=== PATIENT | male | born 1935 | race Caucasian/White ===

== ENCOUNTER 2023-04-09 10:34 | Outpatient (OUT) | payer MEDICARE, SELFPAY ==
--- NOTE | 2023-04-09 11:02 | XR_ITS ---
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 FINDINGS: The cardiomediastinal silhouette is enlarged. Left-sided cardiac pacemaker with atrial periventricular lead. Scattered nodular opacities are noted, unchanged from the prior exam. There is no pneumothorax. No pleural effusion is noted. The osseous structures are intact. XR/XR chest 2V IMPRESSION: No significant change from the prior exam. Electronically authenticated by: KENDALL DANG Date: 04/09/2023 11:26
[2023-04-09 12:37] LABS: Alanine Aminotransferase 21 U/L (16-63); Albumin Globulin Ratio 0.9; Albumin Level 3.6 g/dL (3.4-5.0); Alkaline Phosphatase 221 U/L (46-116); Aspartate Amino Transferase 16 U/L (15-37); Bilirubin Direct 0.1 mg/dL (0.0-0.2); Bilirubin Total 0.5 mg/dL (0.2-1.0); Globulin 3.9 g/dL; Thyroid Stimulating Hormone 3.946 uIU/mL (0.358-3.740); Total Protein 7.5 g/dL (6.4-8.2)
[2023-04-09 12:45] LABS: Free T4 1.23 ng/dL (0.76-1.46)
== END 2023-04-09 10:35 | disposition home or self-care (01) ==
LOC: LAB 10:41
PROVIDERS: PCP Family Medicine; Visit Provider Internal Medicine Cardiovascular Disease
DX: Z79.899 Other long term (current) drug therapy (principal)
CPT/HCPCS: 36415; 71046; 80076; 84439; 84443

== ENCOUNTER 2023-05-24 12:10 | Outpatient (OUT) | payer MEDICARE, SELFPAY ==
[2023-05-24 12:36] LABS: Anion Gap 11.5; BUN Creatinine Ratio 21.5; Calcium 8.4 mg/dL (8.5-10.1); Carbon Dioxide 27.9 mmol/L (21.0-32.0); Chloride 107 mmol/L (98-107); Estimated GFR (African America 54 (>=60); Estimated GFR (Non-African Ame 45 (>=60); Glucose 106 mg/dL (74-106); Potassium 4.4 mmol/L (3.5-5.1); Sodium 142 mmol/L (136-145)
== END 2023-05-24 12:11 | disposition home or self-care (01) ==
LOC: LAB 12:12
PROVIDERS: PCP Family Medicine; Visit Provider Nurse Practitioner
DX: I50.23 Acute on chronic systolic (congestive) heart failure (principal)
CPT/HCPCS: 36415; 80048

== ENCOUNTER 2023-06-21 12:38 | Outpatient (OUT) | payer MEDICARE, SELFPAY ==
[2023-06-21 13:40] LABS: Anion Gap 13.3; BUN Creatinine Ratio 22.1; Calcium 8.3 mg/dL (8.5-10.1); Carbon Dioxide 25.6 mmol/L (21.0-32.0); Chloride 108 mmol/L (98-107); Estimated GFR (African America 54 (>=60); Estimated GFR (Non-African Ame 45 (>=60); Glucose 103 mg/dL (74-106); Potassium 4.9 mmol/L (3.5-5.1); Sodium 142 mmol/L (136-145)
== END 2023-06-21 12:39 | disposition home or self-care (01) ==
LOC: LAB 12:40
PROVIDERS: PCP Family Medicine; Visit Provider Nurse Practitioner
DX: I10 Essential (primary) hypertension (principal)
CPT/HCPCS: 36415; 80048

== ENCOUNTER 2023-11-16 10:00 | Outpatient (OUT) | payer MEDICARE, SELFPAY ==
--- NOTE | 2023-11-16 10:00 | CA_ITS ---
Patient Name: SHALA ARENAS MR#: [id number] : 1935 Exam Date: 11/16/2023 Ordering Doctor: OLIVIA CORMIER CNP ECHOCARDIOGRAM REPORT PROCEDURE: CA ECHO DOPPLER COMPLETE INDICATIONS: Heart failure, CABGx3, pacemaker COMPARISON: None. DESCRIPTION: COMPLETE ECHOCARDIOGRAM Real-time transthoracic echocardiography with 2D, M-mode, spectral and color flow Doppler performed. QUALITY: Technical quality was adequate. 65 , 172#, BSA 1.86 m2, BP 134/76 LEFT VENTRICLE: Normal chamber size. Normal left ventricular wall thickness. LV EF: Global left ventricular systolic function is low normal limits; visually estimated ejection fraction is 50 to 55%. Abnormal septal motion; this is not an unusual finding in the post open heart patient. DIASTOLIC: Diastolic dysfunction. ATRIAL SEPTUM: Inadequately seen. LEFT ATRIUM: Severe dilatation. RIGHT ATRIUM: Severe dilatation. Pacer wire present. RIGHT VENTRICLE: Moderate dilatation. Systolic function appears preserved. Pacer wire present. TRICUSPID VALVE: Normal mobility and thickness. Moderate regurgitation. Doppler studies reveal mildly (35-45) elevated right sided pressures. RVSP 45 mmHg MITRAL VALVE: Normal mobility and thickness. Moderate mitral annular calcification. Trivial mitral regurgitation. AORTIC VALVE: The transcatheter aortic valve (THI) appears well seated in the aortic position with normal Doppler flows. No aortic regurgitation. AORTIC ROOT: Normal diameter and appearance. PULMONIC VALVE: Not well visualized. No stenosis. No regurgitation. PERICARDIUM: Anterior free space; trivial effusion versus fat pad. IVC: IVC is normal in size, does not collapse. CONCLUSION: 1. Global left ventricular systolic function is low normal limits; visually estimated ejection fraction is 50 to 55% 2. Right ventricle is moderately dilated with preserved systolic function 3. Severe biatrial enlargement 4. Diastolic dysfunction 5. Moderate tricuspid regurgitation 6. Mildly elevated right ventricular systolic pressure; RVSP 45 mmHg 7. The transcatheter aortic valve (THI) appears well-seated with normal Doppler flow; no significant valvular regurgitation 8. Anterior free space; trivial effusion versus fat pad Adult Echocardiography Procedure Report Left Ventricle LVEDD (3.7 - 5.6 cm): 5.84 cm LVESD (2.2 - 4.0 cm): 4.66 cm LVIVS thickness (0.6 - 1.2 cm): 1.12 cm LVPW thickness (0.5 - 1.0 cm): 1.04 cm LVOT Max Gradient: 2.89 mm[Hg] LVOT Area (cm2): 0.85 m/s Peak Velocity (LVOT): 0.85 m/s Mean Velocity (LVOT): 0.63 m/s LVOT Diameter 2.27 cm Left Atrium LA Volume Index (2D A2C): 63.90 ml/m2 Left Atrium Systolic Dimension: 4.91 cm Mitral Valve MV E to A Ratio: 0.94 Mitral Valve A-Wave Peak Velocity: 1.03 m/s Mitral Valve E-Wave Peak Velocity: 0.97 m/s Right Ventricle Aorta AO Root Diam: 3.27 cm Aortic Valve AoV Area (Peak Danilo): 1.51 cm2, 1.51 cm2 AoV Area (VTI): 1.79 cm2, 1.82 cm2 Peak Velocity(Antegrade Flow): 2.27 m/s, 2.18 m/s Peak Gradient(Antegrade Flow): 20.70 mm[Hg], 19.04 mm[Hg] Mean Velocity(Antegrade Flow): 1.49 m/s, 1.43 m/s Mean Gradient(Antegrade Flow): 10.45 mm[Hg], 9.46 mm[Hg] Velocity Time Integral: 48.98 cm, 49.60 cm Tricuspid Valve Peak Velocity (Regurgitant Flow): 3.03 m/s, 2.86 m/s, 2.75 m/s, 2.97 m/s Pulmonic Valve Peak Gradient: 3.59 mm[Hg], 3.23 mm[Hg] Right Atrium Right Atrium Systolic Pressure: 109.59 ml, 109.59 ml Dictated by: Radha Castanon M.D. on 11/16/2023 at 16:50 Approved by: Radha Castanon M.D. on 11/16/2023 at 16:56
== END 2023-11-16 10:01 | disposition home or self-care (01) ==
LOC: CARD 10:02
PROVIDERS: PCP Family Medicine; Visit Provider Nurse Practitioner Family
DX: I50.22 Chronic systolic (congestive) heart failure (principal)
CPT/HCPCS: 93306

== ENCOUNTER 2024-04-17 11:30 | Outpatient (OUT) | payer MEDICARE, SELFPAY ==
--- NOTE | 2024-04-17 11:59 | XR_ITS ---
The [address] [address] Patient Name: SHALA ARENAS MRN: [id number] date: 1935 Sex: M Assigned Patient Location: [facility] Current Patient Location: Accession/Order Number: [id number] Exam Date: 04/17/2024 12:04 Report Date: 04/18/2024 16:39 At the request of: OLIVIA CORMIER Procedure: XR chest 2V EXAM: XR chest 2V CLINICAL INDICATION: Retirement Use Of Amiodarone Z79.899 COMPARISON: 04/09/2023 TECHNIQUE: 2 views of chest performed. FINDINGS: Stable left chest wall cardiac device with intact leads. Lungs: Stable left-sided calcified granuloma. Stable right upper lobe/biapical pleural-parenchymal scarring. No convincing focal infiltrates. No pleural effusion or pneumothorax. Heart: Cardiac and mediastinal contours are unremarkable. No overt pulmonary vascular congestion. Osseous structures: No acute abnormalities. XR/XR chest 2V IMPRESSION: No acute cardiopulmonary process. Electronically authenticated by: TREV DENTON Date: 04/18/2024 16:39
--- OUTSIDE RECORDS SUMMARY | 2024-04-17 12:02 | XMS_ITS | CCD ---
Author Organization [facility] Care Team Providers Care Design And Sales Consultant Name Role Phone TONY BURGOS Primary Care Unavailable TONY BURGOS Referring Unavailable UNKNOWN, PROVIDER Admitting Unavailable UNKNOWN, PROVIDER Attending Unavailable RADHA NAZARIO Referring Unavailable TONY BURGOS Primary Care Unavailable UNKNOWN, PROVIDER Attending Unavailable UNKNOWN, PROVIDER Admitting Unavailable DOUGLAS DE LA ROSA Surgeon Unavailable IN Procedure Practitioner Unavailab le IN Procedure Practitioner Unavailab GREGORIO LevyAB A Surgeon Unavailable IN Procedure Practitioner Unavailab TONY Hsu Referring Unavailable TONY BURGOS Primary Care Unavailable NICOLE GUERRERO Admitting Unavailable NICOLE GUERRERO Attending Unavailable NICOLE GUERRERO Surgeon Unavailable TONY BURGOS Primary Care Physician BURGOS ., DR TONY Latham Primary Care Unavailable OLIVIA CORMIER Attending Unavailable OLIVIA CORMIER Admitting Unavailable BURGOS ., DR TONY Latham Primary Care Unavailable BURGOS ., DR TONY Latham Attending Unavailable BURGOS ., DR TONY Latham Consulting Unavailable BURGOS ., DR TONY Latham Admitting Unavailable JAVIER WOODARD Consulting Unavailable BURGOS ., DR TONY Latham Primary Care Unavailable BURGOS ., DR TONY Latham Attending Unavailable BURGOS ., DR TONY Latham Consulting Unavailable BURGOS ., DR TONY Latham Admitting Unavailable BURGOS ., DR TONY Latham Primary Care Unavailable BURGOS ., DR TONY Latham Attending Unavailable BURGOS ., DR TONY Latham Consulting Unavailable BURGOS ., DR TONY Latham Admitting Unavailable BURGOS ., DR TONY Latham Attending Unavailable BURGOS ., DR TONY Latham Consulting Unavailable BURGOS ., DR TONY Latham Admitting Unavailable BURGOS ., DR TONY Latham Primary Care Unavailable BURGOS ., DR TONY Latham Attending Unavailable BURGOS ., DR TONY Latham Consulting Unavailable BURGOS ., DR TONY Latham Admitting Unavailable BURGOS ., DR TONY Latham Primary Care Unavailable BURGOS ., DR TONY Latham Primary Care Unavailable BURGOS ., DR TONY Latham Attending Unavailable BURGOS ., DR TONY Latham Consulting Unavailable BURGOS ., DR TONY Latham Admitting Unavailable BURGOS ., DR TONY Latham Attending Unavailable BURGOS ., DR TONY Latham Primary Care Unavailable BURGOS ., DR TONY Latham Consulting Unavailable BURGOS ., DR TONY Latham Admitting Unavailable BURGOS ., DR TONY Latham Consulting Unavailable BURGOS ., DR TONY Latham Primary Care Unavailable BURGOS ., DR TONY Latham Attending Unavailable BURGOS ., DR TONY Latham Admitting Unavailable BURGOS ., DR TONY Latham Attending Unavailable BURGOS ., DR TONY Latham Primary Care Unavailable BURGOS ., DR TONY Latahm Consulting Unavailable BURGOS ., DR TONY Latham Admitting Unavailable BURGOS ., DR TONY Latham Attending Unavailable BURGOS ., DR TONY Latham Admitting Unavailable BURGOS ., DR TONY Latham Primary Care Unavailable BURGOS ., DR TONY Latham Consulting Unavailable BURGOS ., DR TONY Latham Primary Care Unavailable BURGOS ., DR TONY Latham Attending Unavailable BURGOS ., DR TONY Latham Consulting Unavailable BURGOS ., DR TONY Latham Admitting Unavailable BURGOS ., DR TONY Latham Primary Care Unavailable BURGOS ., DR TONY Latham Attending Unavailable BURGOS ., DR TONY Latham Consulting Unavailable BURGOS ., DR TONY Latham Admitting Unavailable BURGOS ., DR TONY Latham Primary Care Unavailable ROBIN MCDONALD Admitting Unavailable [place], DR JUSTIN Mcneill Consulting Unavailable ROBIN MCDONALD Attending Unavailable ROBIN MCDONALD Consulting Unavailable BURGOS ., DR TONY Latham Primary Care Unavailable BURGOS ., DR TONY Latham Attending Unavailable BURGOS ., DR TONY Latham Consulting Unavailable BURGOS ., DR TONY Latham Admitting Unavailable BURGOS ., DR TONY Latham Primary Care Unavailable BURGOS ., DR TONY Latham Attending Unavailable BURGOS ., DR TONY Latham Consulting Unavailable BURGOS ., DR TONY Latham Referring Unavailable BURGOS ., DR TONY Latham Admitting Unavailable BURGOS ., DR TONY Latham Primary Care Unavailable SISSY SCHNEIDER Consulting Unavailable SISSY SCHNEIDER Attending Unavailable SISSY SCHNEIDER Admitting Unavailable BURGOS ., DR TONY Latham Primary Care Unavailable BURGOS ., DR TONY Latham Attending Unavailable BURGOS ., DR TONY Latham Consulting Unavailable BURGOS ., DR TONY Latham Admitting Unavailable BURGOS ., DR TONY Latham Primary Care Unavailable BURGOS ., DR TONY Latham Attending Unavailable BURGOS ., DR TONY Latham Consulting Unavailable BURGOS ., DR TONY Latham Admitting Unavailable BURGOS ., DR TONY Latham Primary Care Unavailable BURGOS ., DR TONY Latham Attending Unavailable BURGOS ., DR TONY Latham Consulting Unavailable BURGOS ., DR TONY Latham Admitting Unavailable BURGOS ., DR TONY Latham Primary Care Unavailable BURGOS ., DR TONY Latham Attending Unavailable BURGOS ., DR TONY Latham Consulting Unavailable BURGOS ., DR TONY Latham Admitting Unavailable BURGOS ., DR TONY Latham Primary Care Unavailable VITOR, ROBIN Consulting Unavailable VITOR, ROBIN Admitting Unavailable VITOR, ROBIN Attending Unavailable KENDALL DANG Consulting Unavailable BURGOS ., DR TONY Latham Primary Care Unavailable VITOR, ROBIN Consulting Unavailable VITOR, ROBIN Admitting Unavailable VITOR, ROBIN Attending Unavailable BURGOS ., DR TONY Latham Primary Care Unavailable BURGOS ., DR TONY Latham Attending Unavailable BURGOS ., DR TONY Latham Admitting Unavailable BURGOS ., DR TONY Latham Primary Care Unavailable VITOR, ROBIN Consulting Unavailable VITOR, ROBIN Admitting Unavailable VITOR, ROBIN Attending Unavailable BURGOS ., DR TONY Latham Primary Care Unavailable BURGOS ., DR TONY Latham Attending Unavailable BURGOS ., DR TONY Latham Consulting Unavailable BURGOS ., DR TONY Latham Admitting Unavailable BURGOS ., DR TONY Latham Primary Care Unavailable BUGROS ., DR TONY Latham Admitting Unavailable BURGOS ., DR TONY Latham Attending Unavailable BURGOS ., DR TONY Latham Consulting Unavailable BURGOS ., DR TONY Latham Primary Care Unavailable HAY ., DR WEINBERG Consulting Unavailable HAY ., DR WEINBERG Attending Unavailable HAY ., DR WEINBERG Admitting Unavailable BURGOS ., DR TONY Latham Primary Care Unavailable BURGOS ., DR TONY Latham Attending Unavailable BURGOS ., DR TNOY Latham Consulting Unavailable GRECHVITA ., PIO WELLER Procedure Practitioner Yodit vailable BURGOS ., DR TONY Latham Admitting Unavailable [place], DR JUSTIN Mcneill Consulting Unavailable ALBERTO VIZCAINO Procedure Practitioner Unavailab will GUSMAN ., PIO WELLER Consulting UnavailARUNA [place] Consulting Unavailable SHAIKH Shlomo ROCHA Consulting Unavailable SHELBI PAETL Consulting Unavailable NESHA RESENDEZ Consulting Unavailable ALBERTO VIZCAINO Consulting Unavailable BURGOS ., DR TONY Latham Attending Unavailable BURGOS ., DR TONY Latham Admitting Unavailable BURGOS ., DR TONY Latham Primary Care Unavailable BURGOS ., DR TONY Latham Consulting Unavailable BURGOS ., DR TONY Latham Primary Care Unavailable VITOR, ROBIN Admitting Unavailable VITORROBIN Attending Unavailable BURGOS ., DR TONY Latham Primary Care Unavailable ROBIN MCDONALD Consulting Unavailable ROBIN MCDONALD Admitting Unavailable ROBIN MCDONALD Attending Unavailable LAVERNE ., DR TONY Latham Primary Care Unavailable SHAIKH Shlomo ROCHA Attending Unavailable SHAIKH Shlomo ROCHA Admitting Unavailable OLIVIA CORMIER Attending Unavailable SHANTAL BELLO Attending Unavailable ROBIN MCDONALD Referring Unavailable ROBIN MCDONALD Referring Unavailable JAMES Bowman Attending Unavailable MD Nesha Valencia Attending Unavailable JAMES Bowman Attending Unavailable Allergies Allergy Classification Reported Allergen(s) Allergy Type Date of Onset Reaction(s) Facility (1 source) No Known Medication Allergies; Translations: [No Known Medication Allergies] Propensity to adverse reactions (disorder) [facility] Repository Medications Current Medications Medication Drug Class(es) Dates Sig (Normalized) Sig (Original) aspirin 81 mg oral tablet (1 source) Platelet Aggregation Inhibitor, Nonsteroidal Anti-inflammatory Drug Start: 11-04-2021 take 1 tablet by mouth once daily aspirin 81 mg Oral EC Tab 81 mg = 1 tab(s), Oral, Daily, Refills(s) 0 Start Date: 11/04/21 Status: Ordered atorvastatin 20 mg oral tablet (1 source) HMG-CoA Reductase Inhibitor Start: 10-27-2021 take 1 tablet by mouth at bedtime atorvastatin 20 mg Tab 20 mg = 1 tab(s), Oral, Bedtime, Refills(s) 0 Start Date: 10/27/21 Status: Ordered carvedilol 6.25 mg oral tablet (1 source) alpha-Adrenergic Tatyana, beta-Adrenergic Tatyana Start: 10-27-2021 take 1 tablet by mouth twice daily carvedilol 6.25 mg Tab 6.25 mg = 1 tab(s), Oral, BID, Refills(s) 0 Start Date: 10/27/21 Status: Ordered 24 hr dilTIAZem hydrochloride 120 mg extended release oral capsule (1 source) Calcium Channel Tatyana Start: 10-27-2021 DilTIAZem (Eqv-Cardizem CD) 120 mg/24 hours oral capsule, extended release 120 mg = 1 cap(s), Oral, Daily, Refills(s) 0 Start Date: 10/27/21 Status: Ordered furosemide 40 mg oral tablet (1 source) Loop Diuretic Start: 11-04-2021 take 1 tablet by mouth once daily Lasix 40 mg Tab 40 mg = 1 tab(s), Oral, Daily, Refills(s) 0 Start Date: 11/04/21 Status: Ordered losartan potassium 100 mg oral tablet (1 source) Angiotensin 2 Receptor Tatyana Start: 10-27-2021 take 1 tablet by mouth once daily losartan 100 mg Tab 100 mg = 1 tab(s), Oral, Daily, Refills(s) 0 Start Date: 10/27/21 Status: Ordered PreserVision AREDS (1 source) Start: 11-04-2021 take 1 tablet by mouth once daily PreserVision AREDS 1 tab(s), Oral, Daily, Refill(s) 0 Start Date: 11/04/21 Status: Ordered rivaroxaban 20 mg oral tablet (1 source) Factor Xa Inhibitor Start: 10-27-2021 take 1 tablet by mouth once daily in the evening Xarelto 20 mg oral tablet 20 mg = 1 tab(s), Oral, qPM, Refills(s) 0 Start Date: 10/27/21 Status: Ordered Problems Active Problems Problem Classification Problem Date Documented Date Episodic/Chronic Cardiac and circulatory congenital anomalies (1 source) Arteriovenous malformation, other site; Translations: [ARTERIOVENOUS MALFORMATION OT SITE] Onset: 05-05-2022 Chronic Cardiac dysrhythmias (9 sources) Atrial fibrillation with rapid ventricular response; Translations: [Unspecified atrial fibrillation] Onset: 06-12-2022 10-27-2021 Chronic Chronic kidney disease (2 sources) Chronic kidney disease stage 3; Translations: [Chronic kidney disease, unspecified] Onset: 05-12-2022 10-27-2021 Chronic Chronic obstructive pulmonary disease and bronchiectasis (1 source) Emphysema, unspecified; Translations: [EMPHYSEMA UNSPECIFIED] Onset: 2022 Chronic Conduction disorders (7 sources) Presence of cardiac pacemaker; Translations: [Encounter for adjustment and management of automatic implantable cardiac defibrillator] Onset: 2022 Chronic Congestive heart failure; nonhypertensive (14 sources) Acute diastolic heart failure; Translations: [Diastolic heart failure] Onset: 02-18-2022 10-27-2021 Chronic Coronary atherosclerosis and other heart disease (3 sources) 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; Translations: [ASHD [place] CA W/O ANGINA PECTORIS] Onset: 03-04-2022 Chronic Deficiency and other anemia (5 sources) Iron deficiency anemia secondary to blood loss (chronic); Translations: [IRON DEFIC ANEMIA SEC BLD LOSS CHRN] Onset: 06-01-2022 Chronic Deficiency and other anemia (2 sources) Iron deficiency anemia; Translations: [Iron deficiency anemia, unspecified] Onset: 11-04-2021 Episodic Deficiency and other anemia (1 source) Anemia 10-27-2021 Episodic Disorders of lipid metabolism (3 sources) Pure hypercholesterolemia; Translations: [Pure hypercholesterolemia, unspecified] Onset: 05-05-2022 10-27-2021 Chronic Essential hypertension (4 sources) Hypertensive disorder; Translations: [Essential (primary) hypertension] Onset: 03-04-2022 10-27-2021 Chronic Heart valve disorders (3 sources) Rheumatic disorders of both mitral and tricuspid valves; Translations: [Nonrheumatic aortic (valve) stenosis] Onset: 03-04-2022 Chronic Hypertension with complications and secondary hypertension (2 sources) Hypertensive heart and chronic kidney disease with heart failure and stage 1 through stage 4 chronic kidney disease, or unspecified chronic kidney disease; Translations: [Hypertensive chronic kidney disease with stage 1 through stage 4 chronic kidney disease, or unspecified chronic kidney disease] Onset: 06-01-2022 Chronic Other aftercare (2 sources) Long-term current use of anticoagulant; Translations: [intermediate (current) use of anticoagulants] Onset: 11-04-2021 Episodic Other connective tissue disease (1 source) Polymyalgia rheumatica 10-27-2021 Chronic Other nutritional; endocrine; and metabolic disorders (1 source) Body mass index 25-29 - overweight 11-04-2021 Episodic Faustina-; endo-; and myocarditis; cardiomyopathy (except that caused by tuberculosis or sexually transmitted disease) (2 sources) Other cardiomyopathies; Translations: [Other cardiomyopathies] Onset: 05-14-2023 Chronic Peripheral and visceral atherosclerosis (1 source) Arteriosclerotic vascular disease 10-27-2021 Chronic Unclassified (1 source) PERSONAL HISTORY OF COVID-19; Translations: [PERSONAL HISTORY OF COVID-19] Onset: 2022 Unclassified (1 source) CHRN KIDNEY DISEASE STG 3 UNSP; Translations: [CHRN KIDNEY DISEASE STG 3 UNSP] Onset: 2022 Unclassified (1 source) Chronic atrial fibrillation, unspecified; Translations: [CHRONIC ATRIAL FIBRILLATION UNSPEC] Onset: 2022 Unclassified (1 source) CONTACT W/AND (SUSP) EXPOS COVID-19; Translations: [CONTACT W/AND (SUSP) EXPOS COVID-19] Onset: 05-05-2022 Unclassified (1 source) Other abnormal findings on cytological and histological examination of urine; Translations: [OTH ABN FIND CYTLG HISTLG EXM URINE] Onset: 02-18-2022 Past or Other Problems Problem Classification Problem Date Documented Da te Episodic/Chronic Acute and unspecified renal failure (1 source) Acute kidney failure, unspecified; Translations: [ACUTE KIDNEY FAILURE UNSPECIFIED] Onset: 2 Episodic Coronary atherosclerosis and other heart disease (1 source) Presence of aortocoronary bypass graft; Translations: [PRESENCE AORTOCORONARY BYPASS GRAFT] Onset: 2 Episodic Deficiency and other anemia (4 sources) Anemia, unspecified; Translations: [ANEMIA UNSPECIFIED] Onset: 3 Episodic Deficiency and other anemia (4 sources) Iron deficiency anemia, unspecified; Translations: [IRON DEFICIENCY ANEMIA UNSPECIFIED] Onset: 2 Episodic Fluid and electrolyte disorders (1 source) Hypovolemia; Translations: [HYPOVOLEMIA] Onset: 2 Episodic Gastritis and duodenitis (1 source) Gastritis, unspecified, without bleeding; Translations: [GASTRITIS UNS WITHOUT BLEEDING] Onset: 2 Episodic Gastrointestinal hemorrhage (5 sources) Gastrointestinal hemorrhage, unspecified; Translations: [GASTROINTESTINAL HEMORRHAGE UNS] Onset: 2 Episodic Malaise and fatigue (4 sources) Weakness; Translations: [WEAKNESS] Onset: 2 Episodic Other aftercare (1 source) Other intermediate designer (current) drug therapy; Translations: [OTH PENITENTIARY CURRENT DRUG THERAPY] Onset: 3 Episodic Other aftercare (1 source) terminal clerk (current) use of anticoagulants; Translations: [PENITENTIARY CURRNT USE ANTICOAGULANTS] Onset: 2 Episodic Other aftercare (4 sources) Encounter for therapeutic drug level monitoring; Translations: [ENC THERAPEUTC DRUG LEVL MONITORING] Onset: 2 Episodic Other aftercare (1 source) intermediate (current) use of aspirin; Translations: [METAL EXPEDITER CURRENT USE OF ASPIRIN] Onset: 2 Episodic Other lower respiratory disease (1 source) Personal history of pneumonia (recurrent); Translations: [PERSONAL HX OF PNEUMONIA RECURRENT] Onset: 2 Episodic Other lower respiratory disease (4 sources) Shortness of breath; Translations: [SHORTNESS OF BREATH] Onset: 2 Episodic Syncope (1 source) Syncope and collapse; Translations: [SYNCOPE AND COLLAPSE] Onset: 2 Episodic Results Test Name Value Interpretation Reference Range Facility Consultation Noteon 12-01-19 24 Consultation Note [id number] [facility] 36on 11-24-2023 36 PT INFORTMED [facility] Echocardiographyon 4 Echocardiography [id number] [facility] Office Visiton 10-19-2023 Follow-up visit [id number] Juan Barcenas 1935 M Date Provider Department Center 10/19/2023 Roxana-OLIVIA CORMIER [facility] Family History Problem Relation Age of Onset Stroke Mother Other Father Family Status - Relation Status Age at Mother Father Level of Service:81872 IN OFFICE/OUTPATIENT ESTABLISHED MOD MDM 30 MIN Reason for Visit and Comments: Atrial Fibrillation [80] Congestive Heart Failure [127] Normal [facility] Ambulatory Visit Summaryon 0 09-29-2023 Ambulatory Visit Summary JUAN BARCENAS :1935 Visit Date:09/29/2023 Ambulatory Visit Instructions Your Diagnosis Annual visit for general adult medical examination without abnormal findings Encounter for screening for other disorder Acute diastolic heart failure Atrial fibrillation with rapid ventricular response ASCVD (arteriosclerotic cardiovascular disease) Pure hypercholesterolemia HTN (hypertension) Adult BMI 27.0-27.9 kg/sq m Your Care Team Attending Physician - Isabela Shields Primary Care Physician - Isabela Shields This Is Your Medications List amlodipine (amLODIPine 10 mg Tab) aspirin (aspirin 81 mg Oral EC Tab) atorvastatin (atorvastatin 20 mg Tab) carvedilol (carvedilol 6.25 mg Tab) ferrous sulfate (ferrous sulfate 325 mg Tab) furosemide (Lasix 40 mg Tab) losartan (losartan 100 mg Tab) multivitamin with minerals (PreserVision AREDS) omeprazole (omeprazole 40 mg Cap-DR) spironolactone Procedures Performed Colonoscopy (11/26/2021), EGD - Esophagogastroduodenoscopy (11/26/2021), AVR - Aortic valve replacement (12/2020), Biopsy of lung (10/2020), Bronchoscopy (10/2020), Cardiac pacemaker (2013), 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 Discharge Vitals Heart Rate (Peripheral) 58 Blood Pressure 132/72 Height 167 cm Height 66 in Weight 77.5 kg Weight 170.5 lb BMI 27.79 What to do next Scheduled Follow-Up Appointments Wednesday 11:00 AM EST Where: [facility] Family Medicine [place] Normal [facility] Family Medicine Office/Clini c Noteon 09-29-2023 Family Medicine Office/Clinic Note Chief Complaint Subsequent Medicare Wellness Visit Review of Systems PHQ Score Initial Depression Screen Score: 0 SCORE Physical Exam Vitals & Measurements HR: 58(Peripheral) BP: 132/72 SpO2: 97% HT: 167 cm HT: 66 in WT: 77.5 kg WT: 170.5 lb BMI: 27.79 Assessment/Plan 1. Annual visit for general adult medical examination without abnormal findings (Z00.00: Encounter for general adult medical examination without abnormal findings) The patient is accompanied by daughter Nelida. Patient was given a customized and personalized print out of all the current AHRQ USPSTF?s recommendations for preventative services and all current CDC recommended immunizations, relevant risk recommendations and the following patient brochures were given. Reviewed Medicare preventative services checklist. CDC-Falls Prevention and home safety screening reviewed. Patient denies any falls in last 12 months, voices no worry about falling, exhibits no problems with sitting, standing, or ambulation. Pt voices understanding with keeping walk way area free of clutter to prevent tripping and/or falling. [place] Advance Directives reviewed, patient has at home, encouraged to bring copy to office for scanning to chart. Patient denies any problems with ADL?s and Instrumental ADL?s. Cognitive screening completed with memory and clock face drawing. Patient was able to read clock and recall this nurses name- MMSE completed, score 27. Immunization Record reviewed with the patient. Discussed Shingrix vaccine with educational handout and availability. Immunization record is up to date. Allergies and medications reviewed and up to date. Patient denies concerns with taking medication as prescribed, reviewed OTC medications with patient, medication list up to date. Blood tests were reviewed: Discussed what tests need to be updated- daughter states labs completed in fall, request sent to [facility]. Colonoscopy, aged out. Reviewed pain symptoms with patient: patient denies pain symptoms Reviewed all outside providers that patient follows. Last visit summary notes available in chart and/or have been requested. Follow up scheduled, TBD AWV has been scheduled, 09/11/2024 CCM services explained and offered to patient and Nelida, patient and daughter declined at this time. 2. Encounter for screening for other disorder (Z13.89: Encounter for screening for other disorder) Medicare provides yearly screening for alcohol and depression concerns. This is completed during our Medicare Wellness visit for those who do not have a current diagnosis of depression or concerns with alcohol use. I spent a total of 17 minutes on this date of service which included preparing to see the patient, face to face patient care, completion 0, with patient denying concerns with use. Completed PHQ-2 risk assessment for depression with risk score 0, negative findings. Patient has been reminded to notify the provider if there would be a change or concerns with symptoms with fear, unable to sleep, worrying too much or feeling down and/or sad with lost of interest with daily activities. Will continue to monitor with screening yearly during Medicare wellness visits. 3. Acute diastolic heart failure (I50.31: Acute diastolic (congestive) heart failure) Patient follows with cardiology every 6 months. Patient is taking Coreg, losartan, spironolactone, and Lasix as prescribed. Patient denies swelling to lower extremities. Patient does not weigh himself daily but denies weight gain. Patient reports SOB only on occasion and denies concerns today. Patient is aware of symptoms to report to provider. Patient will follow up with PCP as needed. 4. Atrial fibrillation with rapid ventricular response (I48.91: Unspecified atrial fibrillation) Patient denies having episodes with irregular, fast, or rapid heartbeat. Patient taking medications daily as prescribed. Denies concerns with increased fatigue and/or sudden change in weight. No pain to chest or belly region. Patients are at higher risk of this condition if you smoke, are older, have diabetes, or are overweight. Voices understanding with symptoms to monitor for and follow instructions about medicines, diet, exercise, and follow up visits. Patient follows up with [facility] [employer] [facility], last visit notes available in chart (outside records). Cardiac Healthy Nutritional handout reviewed and provided for patient. 5. 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 Patient follows with Dr. Schneider and Dr. Mcdonald of [facility]. Last visit summary notes are available in chart (outside records). Denies concerns with SOB, chest pain or tightness. Taking medications daily as directed. Reviewed Cardiac nutritional recommendations with handout provided. Patient voices understanding with signs and symptoms to monitor for and report to provider. 6. Pure hypercholesterolemia (E78.00: Pur (more content not included)... Normal [facility] Comment on above: Result Comment: Elec tronically Signed By: Isabela Shields\.br\Date and Time Signed: 09/29/23 13:41 EDT\.br\Electronically Co-Signed By: Bhaskar Leigh\.br\Date and Time Co-Signed: 09/29/23 11:20 EDT Lab Reportson 09-29-2023 Lab Reports [id number] [facility] Patient Educationon 09-29-19 Patient Education Cardiovascular Atrial Fibrillation Atrial fibrillation is a type of irregular or rapid heartbeat (arrhythmia). In atrial fibrillation, the top part of the heart (atria) beats in an irregular pattern. This makes the heart unable to pump blood normally and effectively. The goal of treatment is to prevent blood clots from forming, control your heart rate, or restore your heartbeat to a normal rhythm. If this condition is not treated, it can cause serious problems, such as a weakened heart muscle (cardiomyopathy) or a stroke. What are the causes? This condition is often caused by medical conditions that damage the heart's electrical system. These include: ? High blood pressure (hypertension). This is the most common cause. ? Certain heart problems or conditions, such as heart failure, coronary artery disease, heart valve problems, or heart surgery. ? Diabetes. ? Overactive thyroid (hyperthyroidism). ? Obesity. ? Chronic kidney disease. In some cases, the cause of this condition is not known. What increases the risk? This condition is more likely to develop in: ? Older people. ? People who smoke. ? Athletes who do endurance exercise. ? People who have a family history of atrial fibrillation. ? Men. ? People who use drugs. ? People who drink a lot of alcohol. ? People who have lung conditions, such as emphysema, pneumonia, or COPD. ? People who have obstructive sleep apnea. What are the signs or symptoms? Symptoms of this condition include: ? A feeling that your heart is racing or beating irregularly. ? Discomfort or pain in your chest. ? Shortness of breath. ? Sudden light-headedness or weakness. ? Tiring easily during exercise or activity. ? Fatigue. ? Syncope (fainting). ? Sweating. In some cases, there are no symptoms. How is this diagnosed? Your health care provider may detect atrial fibrillation when taking your pulse. If detected, this condition may be diagnosed with: ? An electrocardiogram (ECG) to check electrical signals of the heart. ? An ambulatory patient monitor to record your heart's activity for a few days. ? A transthoracic echocardiogram (TTE) to create pictures of your heart. ? A transesophageal echocardiogram (LAWRENCE) to create even closer pictures of your heart. ? A stress test to check your blood supply while you exercise. ? Imaging tests, such as a CT scan or chest X-ray. ? Blood tests. How is this treated? Treatment depends on underlying conditions and how you feel when you experience atrial fibrillation. This condition may be treated with: ? Medicines to prevent blood clots or to treat heart rate or heart rhythm problems. ? Electrical cardioversion to reset the heart's rhythm. ? A pacemaker to correct abnormal heart rhythm. ? Ablation to remove the heart tissue that sends abnormal signals. ? Left atrial appendage closure to seal the area where blood clots can form. In some cases, underlying conditions will be treated. Follow these instructions at home: Medicines ? Take over-the counter and prescription medicines only as told by your health care provider. ? Do not take any new medicines without talking to your health care provider. ? If you are taking blood thinners: ? Talk with your health care provider before you take any medicines that contain aspirin or NSAIDs, such as ibuprofen. These medicines increase your risk for dangerous bleeding. ? Take your medicine exactly as told, at the same time every day. ? Avoid activities that could cause injury or bruising, and follow instructions about how to prevent falls. ? Wear a medical alert bracelet or carry a card that lists what medicines you take. Lifestyle ? Do not use any products that contain nicotine or tobacco, such as cigarettes, e-cigarettes, and chewing tobacco. If you need help quitting, ask your health care provider. ? Eat heart-healthy foods. Talk with a dietitian to make an eating plan that is right for you. ? Exercise regularly as told by your health care provider. ? Do not drink alcohol. ? Lose weight if you are overweight. ? Do not use drugs, including cannabis. General instructions ? If you have obstructive sleep apnea, manage your condition as told by your health care provider. ? Do not use diet pills unless your health care provider approves. Diet pills can make heart problems worse. ? Keep all follow-up visits as told by your health care provider. This is important. Contact a health care provider if you: ? Notice a change in the rate, rhythm, or strength of your heartbeat. ? Are taking a blood thinner and you notice more bruising. ? Tire more easily when you exercise or do heavy work. ? Have a sudden change in weight. Get help right away if you have: ? Chest pain, abdominal pain, sweating, or weakness. ? Trouble breathing. (more content not included)... Normal [facility] Screenson 09-29-2023 Screens [id number] Normal [facility] Orders Onlyon 09-15-2023 Orders Only [id number] Juan Barcenas 1935 M Date Provider Department Center 09/15/2023 ROBIN ESPINAL [facility] Chhaya Count Family History Problem Relation Age of Onset Stroke Mother Other Father Family Status - Relation Status Age at Mother Father Normal [facility] 36on 07-29-2023 38 As long as vest is n ot too hot , would not recommend direct contact to skin Normal [facility] Telephoneon 07-29-2023 Telephone [id number] Lovins,Juan D 1935 M Date Provider Department Center 07/29/2023 [facility] Family History Problem Relation Age of Onset Stroke Mother Other Father Family Status - Relation Status Age at Mother Father Normal [facility] Orders Onlyon 06-16-2023 Orders Only [id number] Lovins,Juan D 1935 M Date Provider Department Center 06/16/2023 [facility] Family History Problem Relation Age of Onset Stroke Mother Other Father Family Status - Relation Status Age at Mother Father Normal [facility] Office Visiton 05-14-2023 Follow-up visit [id number] Lovins,Juan D 1935 M Date Provider Department Center 05/14/2023 [facility] Family History Problem Relation Age of Onset Stroke Mother Other Father Family Status - Relation Status Age at Mother Father Level of Service:72283 IN OFFICE/OUTPATIENT ESTABLISHED MOD MDM 30-39 MIN Reason for Visit and Comments: Follow-up [980593] Normal [facility] ECHOCARDIO M/2D COMPLETEon 0 12-04-2022 ECHOCARDIO M/2D COMPLETE Normal [facility] XR CHEST 2 Von 10-01-2022 XR CHEST 2 V Normal [facility] CBC W MANUAL DIFFon 09-25-19 ANISOCYTOSIS SLIGHT Normal [facility] [place] Comment on above: Performed By: #### C ALEX ####[facility] [place] [address]ypwr[address] [place] [id number]. Amina Escobar ATYPICAL LYMPH # Normal [facility] [place] Comment on above: Performed By: #### C ALEX ####[facility] [place] Inycwrkbat0769 [place] [phone]. Amina Escobar ATYPICAL LYMPH % Normal [facility] [place] Comment on above: Performed By: #### C BCMAN ####[facility] [place] F[address]sntntna38[address] [place] [phone]. Yilan Escobar BAND # Normal 0.0-0.3 [facility] [place] Comment on above: Performed By: #### C BCMAN ####[facility] [place] Iwgbeykpdq9[address] [place] [phone]. Yilan Escobar BAND % Normal 0-5 [facility] [place] Comment on above: Performed By: #### C BCMAN ####[facility] [place] Jrnruozqkg3147 [place] [phone]. Yielda Escobar BASOM # 0.00 103/ul Normal 0.00-0.10 [facility] [place] Comment on above: Performed By: #### C BCKELLY ####[facility] [place] [address] [place], [place] [address]Dr. Amina Escobar BASOM % 0.0 % Critically low 0.2-2.0 [facility] [place] Comment on above: Performed By: #### C BCKELLY ####[facility] [place] Uqzlfxycjv76[address] [place] [phone]. Yielda Escobar BLAST # Normal [facility] [place] Comment on above: Performed By: #### C ALEX ####[facility] [place] [address] [place], [place] [address]Dr. Amina Escobar BLAST % Normal [facility] Comment on above: Performed By: #### C BCKELLY ####[facility] [place] [address] [place], [place] [address]Dr. Amina Escobar CORRECTED WBC Normal 4.0-11.0 [facility] Comment on above: Performed By: #### C BCKELLY ####[facility] Ohazrddqsr[address] [place], [place] [address]Dr. Yielda Escobar EOS # 0.12 103/ul Normal 0.00-0.70 [facility] [place] Comment on above: Performed By: #### C BCMAN ####[facility] [address] [place], [place] [address]Dr. Amina Escobar EOS% 2.0 % Normal 0.9-7.0 [facility] [place] Comment on above: Performed By: #### C ALEX ####[facility] [place] Jc[address]unhcvu64[address] [place] [phone]. Amina Escobar HCT 37.9 % Critically low 42.0-54.0 [facility] [place] Comment on above: Performed By: #### C ALEX ####[facility] [place] Qksnxwgtrr44[address] [place], [place] [address]Hz. Amina Escobar HGB 11.5 g/dl Critically low 14.0-18.0 [facility] Comment on above: Performed By: #### C ALEX ####[facility] [place] Fkmwuvzymt[address] [place] [phone]. Amina Escobar HYPOCHROMASIA SLIGHT Normal [facility] [place] Comment on above: Performed By: #### C ALEX ####[facility] [place] Pkqmzitlxd3046 [place] [phone]. Amina Escobar LYMPHM # 0.65 103/ul Critically low 1.20-3.80 [facility] [place] Comment on above: Performed By: #### C ALEX ####[facility] [place] Xhyegeizme73[address] [place] [phone]. Amina Escobar LYMPHM% 11.0 % Critically low 20.5-60.0 [facility] [place] Comment on above: Performed By: #### C ALEX ####[facility] [place] Lccdycchaq35[address] [place] [phone]. Amina Escobar MCH 26.0 pg Normal 25.9-34.0 [facility] [place] Comment on above: Performed By: #### C ALEX ####[facility] [place] Vwalppbsui54[address] [place] [phone]. Amina Escobar MCHC 30.3 g/dl Normal 29.9-35.2 [facility] [place] Comment on above: Performed By: #### C ALEX ####[facility] [place] Zyfdbddbwb9[address] [place] [phone]. Amina Escobar MCV 85.7 fL Normal 80.0-94.0 [facility] [place] Comment on above: Performed By: #### C ALEX ####[facility] [place] Iwpncjuwcc4355 [place] [phone]. Amina Escobar METAMYELOCYTE # Normal [facility] [place] Comment on above: Performed By: #### C ALEX ####[facility] [place] Cbauhjfyzb86[address] [place] [phone]. Amina Escobar METAMYELOCYTE % Normal [facility] [place] Comment on above: Performed By: #### C ALEX ####[facility] [place] Yydvznuccz4279 [place] [phone]. Amina Escobar MICROCYTOSIS SLIGHT Normal [facility] [place] Comment on above: Performed By: #### C ALEX ####[facility] [place] Owekdtyltk8827 [place] [phone]. Amina Escobar MONOM# 0.35 103/ul Normal 0.30-0.80 [facility] Comment on above: Performed By: #### C ALEX ####[facility] [place] Zqsrpdtfhb[address] [place] [address]Dr. Amina Escobar MONOM% 6.0 % Normal 1.7-12.0 [facility] Comment on above: Performed By: #### C ALEX ####[facility] [place] Nakgbyumqk[address] [place], [place] [address]Dr. Amina Escobar MPV 11.9 fL Normal 9.5-13.5 [facility] Comment on above: Performed By: #### C ALEX ####[facility] [place] Icxloovxq[address] [place], [place] [address]Dr. Amina Escobar MYELOCYTE # Normal [facility] Comment on above: Performed By: #### C ALEX ####[facility] [place] Huqwgsbief0076 [place] [phone]. Amina Escobar MYELOCYTE % Normal [facility] [place] Comment on above: Performed By: #### C ALEX ####[facility] [place] S[address]ps[address]dfwy[address] [place], [place] [address]Dr. Amina Escobar NRBC Normal [facility] Comment on above: Performed By: #### C ALEX ####[facility] F[address]wg[address] [place], [place] [address]Dr. Amina Escobar OVALOCYTES SLIGHT Normal [facility] [place] Comment on above: Performed By: #### C ALEX ####[facility] [place] Smwkenipkb0803 [place] [phone]. Amina Escobar PLT 185 103/ul Normal 150-450 [facility] [place] Comment on above: Performed By: #### C ALEX ####[facility] [place] Kkmhpnfbam8478 [place] [phone]. Amina Escobar POIKILOCYTOSIS SLIGHT Normal [facility] [place] Comment on above: Performed By: #### C ALEX ####[facility] [place] Slckmhglhb6936 [place] [phone]. Amina Escobar RBC 4.42 106/ul Critically low 4.70-6.10 [facility] [place] Comment on above: Performed By: #### C ALEX ####[facility] [place] Webafaulkp[address]19 [place] [address]Dr. Amina Escobar RDW 16.4 % Critically high 11.0-15.0 [facility] Comment on above: Performed By: #### C ALEX ####[facility] [place] Aocppfjtyj8806 [place] [phone]. Amina Escobar SEG # 4.78 103/ul Normal 1.40-6.50 [facility] Comment on above: Performed By: #### C ALEX ####[facility] [place] Bqswycufrn7656 [place] [phone]. Amina Escobar SEG % 81.0 % Critically high 43.0-75.0 [facility] Comment on above: Performed By: #### C ALEX ####[facility] [place] Encedcitmm[address] [place], [place] [address]Dr. Amina Escobar WBC 5.9 103/ul Normal 4.0-11.0 [facility] Comment on above: Performed By: #### C ALEX ####[facility] [place] Uxwjogviku[address] [place] [address]Dr. Amina Escobar PROF CHEM 8 (BAS METB)on Anion gap [Moles/Vol] 8.5 mmol/L Normal [facility] Comment on above: Performed By: #### B MP ####[facility] [place] Snrtxrnzsn[address] [place] [address]Dr. Amina Escobar Calcium [Mass/Vol] 8.3 mg/dL Critically low 8.5-10.1 Th e [facility] [place] Comment on above: Performed By: #### B MP ####[facility] [place] Gpnvyoktxb2583 [place] [address]Dr. Amina Escobar Chloride [Moles/Vol] 109 mmol/L Critically high 98-107 [facility] [place] Comment on above: Performed By: #### B MP ####[facility] [place] Zoikdoprfe2394 [place] [address]Dr. Amina Escobar CO2 [Moles/Vol] 29.5 mmol/L Normal 21.0-32.0 [facility] [place] Comment on above: Performed By: #### B MP ####[facility] [place] Qpexrpblsm[address] [place], [place] [address]Dr. Amina Escobar Creatinine [Mass/Vol] 1.11 mg/dL Normal 0.70-1.30 [facility] Comment on above: Performed By: #### B MP ####[facility] [place] Nnkfegonjb[address] [place], [place] [address]Dr. Amina Escobar EGFR-AF PITCAIRN ISLANDER >60 Normal >=60 [facility] [place] Comment on above: Performed By: #### B MP ####[facility] [place] Vxknmozxbx[address] [place], [place] [address]Dr. Amina Escobar EGFR-NON AF PITCAIRN ISLANDER >60 Normal >=60 [facility] [place] Comment on above: Performed By: #### B MP ####[facility] [place] Iv[address]ytrapd7[address] [place], [place] [address]Dr. Amina Escobar Glucose [Mass/Vol] 96 mg/dL Normal 74-106 [facility] Comment on above: Performed By: #### B MP ####[facility] [place] Wvggddrtqn[address] [place], [place] [address]Dr. Amina Escobar Potassium [Moles/Vol] 4.0 mmol/L Normal 3.5-5.1 [facility] [place] Comment on above: Performed By: #### B MP ####[facility] [place] Iewosmxfpr[address] [place] [address]Dr. Amina Escobar Sodium [Moles/Vol] 143 mmol/L Normal 136-145 [facility] [place] Comment on above: Performed By: #### B MP ####[facility] [place] [address]wzaaom[address] [place], [place] [address]Dr. Amina Escobar Urea nitrogen [Mass/Vol] 22.0 mg/dL Critically high 7.0-18.0 [facility] [place] Comment on above: Performed By: #### B MP ####[facility] [place] Cpxzeodvoi[address] [place], [place] [address]Dr. Amina Escobar Urea nitrogen/Creatinine [Mass ratio] 19.8 mg/mg Normal [facility] [place] Comment on above: Performed By: #### B MP ####[facility] [place] X[address]hdyx[address] [place], [place] [address]Dr. Amina Escobar CBC AUTO DIFFon 08-12-2022 BASO # 0.0 103/ul Normal 0.0-0.1 [facility] [place] Comment on above: Performed By: #### C BC ####[facility] [place] Qvriotetzu06[address] [place], [place] [address]Dr. Amina Shawn Basophils/100 WBC (Bld) 0.7 % Normal 0.2-2.0 [facility] [place] Comment on above: Performed By: #### C BC ####[facility] [place] U[address]syxjdz[address] [place], [place] [address]Dr. Amina Escobar EO # 0.2 103/ul Normal 0.0-0.7 [facility] [place] Comment on above: Performed By: #### C BC ####[facility] [place] Uxablzriax[address] [place], [place] [address]Dr. Amina Shawn Eosinophils/100 WBC (Bld) 3.9 % Normal 0.9-7.0 [facility] [place] Comment on above: Performed By: #### C BC ####[facility] [place] Oxyuinxupk[address] [place], [place] [address]Dr. Amina Escobar Erythrocyte distribution width (RBC) [Ratio] 15.5 % Critically high 11.0-15.0 [facility] [place] Comment on above: Performed By: #### C BC ####[facility] [place] [address]llwq3[address] [place] [address]Dr. Kandielda Escobar Hematocrit (Bld) [Volume fraction] 39.3 % Critically low 42.0-54.0 [facility] [place] Comment on above: Performed By: #### C BC ####[facility] [place] Erwxemvcgg5299 [place] [address]Dr. Amina Escobar Hemoglobin (Bld) [Mass/Vol] 11.5 g/dL Critically low 14.0-18.0 [facility] [place] Comment on above: Performed By: #### C BC ####[facility] [place] Ocivohlykt[address] [place], [place] [address]Dr. Amina Escobar IG # 0.02 10e3/ul Normal 0.00-0.03 [facility] Comment on above: Performed By: #### C BC ####[facility] [place] Allrcventw4044[address] [place], [place] [address]Dr. Amina Escobar IG % 0.4 % Normal 0.0-0.5 [facility] [place] Comment on above: Performed By: #### C BC ####[facility] R[address]vazherr[address] [place], [place] [address]Dr. Amina Escobar LYMPH # 0.6 103/ul Critically low 1.2-3.8 [facility] [place] Comment on above: Performed By: #### C BC ####[facility] [place] Ilrmwpcxme[address] [place], [place] [address]Dr. Amina Escobar Lymphocytes/100 WBC (Bld) 10.1 % Critically low 20.5-60.0 [facility] [place] Comment on above: Performed By: #### C BC ####[facility] [place] Zsojuodeco2[address] [place], [place] [address]Dr. Amina Escobar MANUAL DIFF REQ NO Normal [facility] [place] Comment on above: Performed By: #### C BC ####[facility] [place] Xvudixxsql[address] [place], [place] [address]Dr. Amina Escobar MCH (RBC) [Entitic mass] 27.0 pg Normal 25.9-34.0 [facility] [place] Comment on above: Performed By: #### C BC ####[facility] [place] Swtmrdiwuu2[address] [place] [phone]. Amina Shawn MCHC (RBC) [Mass/Vol] 29.3 g/dL Critically low 29.9-35.2 [facility] [place] Comment on above: Performed By: #### C BC ####[facility] [place] Sbxujefyxv1865 [place] [phone]. Amina Escobar MCV (RBC) [Entitic vol] 92.3 fL Normal 80.0-94.0 [facility] Comment on above: Performed By: #### C BC ####[facility] [address]chpfji[address] [place], [place] [address]Dr. Amina Escobar MONO # 0.5 103/ul Normal 0.3-0.8 [facility] [place] Comment on above: Performed By: #### C BC ####[facility] [place] Jzmktanues[address] [place], [place] [address]Dr. Amina Escobar Monocytes/100 WBC (Bld) 9.0 % Normal 1.7-12.0 [facility] [place] Comment on above: Performed By: #### C BC ####[facility] [address]xdh[address] [place], [place] [address]Dr. Amina Escobar NEUT # 4.3 103/ul Normal 1.4-6.5 [facility] [place] Comment on above: Performed By: #### C BC ####[facility] [place] [address]ptzbl[address] [place], [place] [address]Dr. Amina Escobar Neutrophils/100 WBC (Bld) 75.9 % Critically high 43.0-75.0 [facility] [place] Comment on above: Performed By: #### C BC ####[facility] [address]utbxuz[address] [place], [place] [address]Dr. Amina Escobar Platelet mean volume (Bld) [Entitic vol] 11.4 fL Normal 9.5-13.5 [facility] [place] Comment on above: Performed By: #### C BC ####[facility] [place] Mwkvmfoeyn[address] [place], [place] [address]Dr. Amina Escobar PLT 216 103/ul Normal 150-450 [facility] [place] Comment on above: Performed By: #### C BC ####[facility] [place] Tczmjgspdu0234 [place] [id number]. Kandielda Escobar RBC 4.26 106/ul Critically low 4.70-6.10 [facility] [place] Comment on above: Performed By: #### C BC ####[facility] [place] [address]kf[address] [place] [id number]. Kandielda Shawn WBC 5.7 103/ul Normal 4.0-11.0 The [facility] [place] Comment on above: Performed By: #### C BC ####[facility] [place] [address]xunlzbv[address] [place], [place] [address]Dr. Amina Escobar PROF CHEM 8 (BAS METB)on Anion gap [Moles/Vol] 11.9 mmol/L Normal The [facility] [place] Comment on above: Performed By: #### B MP ####[facility] [place] Cktpgrtsfa[address] [place], [place] [address]Dr. Amina Escobar Calcium [Mass/Vol] 8.5 mg/dL Normal 8.5-10.1 The [facility] [place] Comment on above: Performed By: #### B MP ####[facility] [place] Xbatsgkvba054[address] [place], [place] [address]Dr. Amina Escobar Chloride [Moles/Vol] 108 mmol/L Critically high 98-107 The [facility] [place] Comment on above: Performed By: #### B MP ####[facility] [place] Hdtjlicccc6[address] [place], [place] [address]Dr. Amina Escobar CO2 [Moles/Vol] 30.8 mmol/L Normal 21.0-32.0 The [facility] [place] Comment on above: Performed By: #### B MP ####[facility] [place] Luohihenol8[address] [place], [place] [address]Dr. Amina Escobar Creatinine [Mass/Vol] 1.14 mg/dL Normal 0.70-1.30 The [facility] [place] Comment on above: Performed By: #### B MP ####[facility] [place] [address]mfywafbbx15[address] [place], [place] [address]Dr. Amina Escobar EGFR-AF PITCAIRN ISLANDER >60 Normal >=60 The [facility] [place] Comment on above: Performed By: #### B MP ####[facility] [place] [address]kstuymux[address] [place] [id number]. Amina Escobar EGFR-NON AF P[place]CAIRN ISLANDER >60 Normal >=60 The [facility] [place] Comment on above: Performed By: #### B MP ####[facility] [place] [address]rcn[address] [place] [address]Dr. Amina Escobar Glucose [Mass/Vol] 74 mg/dL Normal 74-106 The [facility] [place] Comment on above: Performed By: #### B MP ####[facility] [place] [address]md[address]tsjwq[address] [place] [address]Dr. Amina Escobar Potassium [Moles/Vol] 3.7 mmol/L Normal 3.5-5.1 The [facility] [place] Comment on above: Performed By: #### B MP ####[facility] [place] Gtoawccagk[address] [place], [place] [address]Dr. Amina Escobar Sodium [Moles/Vol] 147 mmol/L Critically high 136-145 T [facility] Comment on above: Performed By: #### B MP ####[facility] [place] Gacudrrszl8[address] [place], [place] [address]Dr. Amina Shawn Urea nitrogen [Mass/Vol] 26.0 mg/dL Critically high 7.0-18.0 [facility] Comment on above: Performed By: #### B MP ####[facility] [place] Ixcasyuyrm76[address] [place], [place] [address]Dr. Kandielda Shawn Urea nitrogen/Creatinine [Mass ratio] 22.8 mg/mg Normal The [facility] [place] Comment on above: Performed By: #### B MP ####[facility] [place] [address]vedij[address] [place] [address]Dr. Amina Shawn XR CHEST 2 Von 07-28-2022 XR CHEST 2 V Normal The [facility] [place] CBC AUTO DIFFon 07-27-2022 BASO # 0.0 103/ul Normal 0.0-0.1 [facility] Comment on above: Performed By: #### C BC ####[facility] [place] Sewznzjjyb11[address] [place], [place] [address]Dr. Amina Escobar Basophils/100 WBC (Bld) 0.5 % Normal 0.2-2.0 The [facility] [place] Comment on above: Performed By: #### C BC ####[facility] [place] Z[address]pgnv[address] [place] [address]Dr. Amina Escobar EO # 0.2 103/ul Normal 0.0-0.7 The [facility] [place] Comment on above: Performed By: #### C BC ####[facility] [place] Hxxmtgzpsm75[address] [place] [address]DrMemo Amina Escobar Eosinophils/100 WBC (Bld) 2.8 % Normal 0.9-7.0 [facility] Comment on above: Performed By: #### C BC ####[facility] [place] V[address]arwttuq34[address] [place], [place] [address]Dr. Kandielda Escobar Erythrocyte distribution width (RBC) [Ratio] 15.0 % Normal 11.0-15.0 The [facility] [place] Comment on above: Performed By: #### C BC ####[facility] [place] Hiqwsvsoyu[address] [place], [place] [address]Dr. Kandielda Escobar Hematocrit (Bld) [Volume fraction] 37.0 % Critically low 42.0-54.0 [facility] Comment on above: Performed By: #### C BC ####[facility] [place] Vvgtxbxkvr20[address] [place], [place] [address]Dr. Amina Escobar Hemoglobin (Bld) [Mass/Vol] 11.5 g/dL Critically low 14.0-18.0 The [facility] [place] Comment on above: Performed By: #### C BC ####[facility] [place] Ehpprunmll8[address] [place], [place] [address]Dr. Kandielda Escobar IG # 0.03 10e3/ul Normal 0.00-0.03 The [facility] [place] Comment on above: Performed By: #### C BC ####[facility] [place] Jdddtnumnf3420[address] [place], [place] [address]Dr. Kandielda Escobar IG % 0.5 % Normal 0.0-0.5 The [facility] [place] Comment on above: Performed By: #### C BC ####[facility] [place] Ukpnhnwpba17[address] [place], [place] [address]DrMemo Escobar LYMPH # 0.6 103/ul Critically low 1.2-3.8 The [facility] Comment on above: Performed By: #### C BC ####[facility] [place] [address]vxra[address] [place] [address]Dr. Amina Escobar Lymphocytes/100 WBC (Bld) 9.2 % Critically low 20.5-60.0 [facility] Comment on above: Performed By: #### C BC ####[facility] [place] [address]umduqium[address] [place] [address]DrMemo Escobar MANUAL DIFF REQ NO Normal The [facility] [place] Comment on above: Performed By: #### C BC ####[facility] [place] Yspylglueb20[address] [place] [id number] Escobar MCH (RBC) [Entitic mass] 27.8 pg Normal 25.9-34.0 The [facility] [place] Comment on above: Performed By: #### C BC ####[facility] [place] Rtjggphjea[address] [place], [place] [address]Dr. Amina Escobar MCHC (RBC) [Mass/Vol] 31.1 g/dL Normal 29.9-35.2 [facility] Comment on above: Performed By: #### C BC ####[facility] [place] Mfmgddagmi0063[address] [place], [place] [address]DrMemo Escobar MCV (RBC) [Entitic vol] 89.4 fL Normal 80.0-94.0 The [facility] [place] Comment on above: Performed By: #### C BC ####[facility] [place] T[address]frvowmpb7[address] [place], [place] [address]DrMemo Escobar MONO # 0.6 103/ul Normal 0.3-0.8 The [facility] [place] Comment on above: Performed By: #### C BC ####[facility] [place] Hxequzgxbw[address] [place], [place] [address]DrMemo Escobar Monocytes/100 WBC (Bld) 8.6 % Normal 1.7-12.0 The [facility] [place] Comment on above: Performed By: #### C BC ####[facility] [place] C[address]xjraodnf23[address] [place], [place] [address]DrMemo Escobar NEUT # 5.1 103/ul Normal 1.4-6.5 [facility] Comment on above: Performed By: #### C BC ####[facility] [place] W[address]oiyubbe[address] [place] [id number]. Amina Escobar Neutrophils/100 WBC (Bld) 78.4 % Critically high 43.0-75.0 [facility] Comment on above: Performed By: #### C BC ####[facility] [place] [address]ox[address]ew[address] [place] [phone]. Amina Escobar Platelet mean volume (Bld) [Entitic vol] 11.2 fL Normal 9.5-13.5 [facility] Comment on above: Performed By: #### C BC ####[facility] [place] [address]rpqsozr[address] [place] [address]Dr. Amina Escobar PLT 239 103/ul Normal 150-450 The [facility] [place] Comment on above: Performed By: #### C BC ####[facility] [place] Bfakhvnigd[address] [place], [place] [address]Dr. Amina Escobar RBC 4.14 106/ul Critically low 4.70-6.10 The [facility] [place] Comment on above: Performed By: #### C BC ####[facility] [place] Wiwphprszr[address] [place], [place] [address]Dr. Amina Escobar WBC 6.4 103/ul Normal 4.0-11.0 The [facility] [place] Comment on above: Performed By: #### C BC ####[facility] [place] Nq[address]qjphqv[address] [place], [place] [address]Dr. Amina Escobar FREE T4on 07-27-2022 Free T4 [Mass/Vol] 1.31 ng/dL Normal 0.76-1.46 The [facility] [place] Comment on above: Performed By: #### F T4 ####[facility] [place] Kfulzjpukf[address]64[address] [place], [place] [address]Dr. Amina Escobar LIVER PROFILEon 07-27-2022 Albumin [Mass/Vol] 3.5 g/dL Normal 3.4-5.0 The [facility] [place] Comment on above: Performed By: #### T SH, LIVER ####[facility] [place] Yuubtbgmql[address] [place], [place] [address]Dr. Amina Escobar Albumin/Globulin [Mass ratio] 0.9 {ratio} Normal [facility] Comment on above: Performed By: #### T SH, LIVER ####[facility] [place] [address]qdb[address] [place] [address]Dr. Amina Escobar ALP [Catalytic activity/Vol] 210 U/L Critically high 46-116 [facility] Comment on above: Performed By: #### T SH, LIVER ####[facility] [place] C[address]zlhig[address] [place] [address]Dr. Amina Escobar ALT [Catalytic activity/Vol] 19 U/L Normal 16-63 The [facility] [place] Comment on above: Performed By: #### T SH, LIVER ####[facility] [place] Itsjvtemwd4654[address] [place], [place] [address]Dr. Amina Escobar AST [Catalytic activity/Vol] 13 U/L Critically low 15-37 [facility] Comment on above: Performed By: #### T SH, LIVER ####[facility] [place] Ocrbpsbfzu43[address] [place], [place] [address]Dr. Amina Escobar BILI, CONJUGATED 0.1 mg/dL Normal 0.0-0.2 The [facility] [place] Comment on above: Performed By: #### T SH, LIVER ####[facility] [place] Cqsargolda[address] [place], [place] [address]Dr. Amina Escobar Bilirubin [Mass/Vol] 0.4 mg/dL Normal 0.2-1.0 [facility] Comment on above: Performed By: #### T SH, LIVER ####[facility] [place] Y[address]jtfccf[address] [place], [place] [address]Dr. Amina Escobar Globulin (S) [Mass/Vol] 3.7 g/dL Normal The [facility] [place] Comment on above: Performed By: #### T SH, LIVER ####[facility] [place] Rgtgpqnlew94[address] [place], [place] [address]Dr. Amina Escobar Protein [Mass/Vol] 7.2 g/dL Normal 6.4-8.2 The [facility] [place] Comment on above: Performed By: #### T SH, LIVER ####[facility] [place] Hfnbeootyu9[address] [place], [place] [address]Dr. Amina Escobar TSHon 07-27-2022 TSH 1.669 uIU/mL Normal 0.358-3.74 0 The [facility] [place] Comment on above: Performed By: #### T SH, LIVER ####[facility] [place] Qgxloukury28[address] [place] [id number]. Amina Escobar CBC AUTO DIFFon 07-15-2022 BASO # 0.1 103/ul Normal 0.0-0.1 The [facility] [place] Comment on above: Performed By: #### C BC ####[facility] [place] Cddokzvlev6[address] [place] [phone]. Amina Escobar Basophils/100 WBC (Bld) 0.7 % Normal 0.2-2.0 The [facility] [place] Comment on above: Performed By: #### C BC ####[facility] Zzpdelthru[address] [place], [place] [address]Dr. Amina Escobar EO # 0.2 103/ul Normal 0.0-0.7 [facility] [place] Comment on above: Performed By: #### C BC ####[facility] [place] Mvhiwisuyl[address] [place], [place] [address]Dr. Amina Escobar Eosinophils/100 WBC (Bld) 2.3 % Normal 0.9-7.0 The [facility] [place] Comment on above: Performed By: #### C BC ####[facility] [place] Nkgcbhqkma[address] [place], [place] [address]Dr. Amina Escobar Erythrocyte distribution width (RBC) [Ratio] 15.0 % Normal 11.0-15.0 [facility] [place] Comment on above: Performed By: #### C BC ####[facility] Rayxgvzlcs[address] [place], [place] [address]Dr. Amina Escobar Hematocrit (Bld) [Volume fraction] 34.2 % Critically low 42.0-54.0 The [facility] [place] Comment on above: Performed By: #### C BC ####[facility] [place] Wlbagyhnae[address] [place], [place] [address]Dr. Amina Escobar Hemoglobin (Bld) [Mass/Vol] 10.6 g/dL Critically low 14.0-18.0 [facility] [place] Comment on above: Performed By: #### C BC ####[facility] [place] J[address]ynzdfh34[address] [place] [address]Dr. Amina Escobar IG # 0.03 10e3/ul Normal 0.00-0.03 [facility] Comment on above: Performed By: #### C BC ####[facility] [place] Fhyoarqcjj11[address] [place] [address]Dr. Amina Escobar IG % 0.4 % Normal 0.0-0.5 [facility] Comment on above: Performed By: #### C BC ####[facility] [place] Iziljhflib[address] [place], [place] [address]Dr. Amina Escobar LYMPH # 0.6 103/ul Critically low 1.2-3.8 [facility] Comment on above: Performed By: #### C BC ####[facility] C[address]sbnzyts[address] [place], [place] [address]Dr. Kandielda Escobar Lymphocytes/100 WBC (Bld) 8.8 % Critically low 20.5-60.0 [facility] Comment on above: Performed By: #### C BC ####[facility] As[address]wgaihcr[address] [place], [place] [address]Dr. Amina Escobar MANUAL DIFF REQ NO Normal [facility] Comment on above: Performed By: #### C BC ####[facility] [place] P[address]ktktaid[address] [place], [place] [address]Dr. Amina Escobar MCH (RBC) [Entitic mass] 28.9 pg Normal 25.9-34.0 [facility] Comment on above: Performed By: #### C BC ####[facility] [place] [address]qmzxnpv[address] [place], [place] [address]Dr. Amina Escobar MCHC (RBC) [Mass/Vol] 31.0 g/dL Normal 29.9-35.2 [facility] [place] Comment on above: Performed By: #### C BC ####[facility] [address] [place] [address]Dr. Amina Escobar MCV (RBC) [Entitic vol] 93.2 fL Normal 80.0-94.0 [facility] Comment on above: Performed By: #### C BC ####[facility] Re[address]qpixjq[address] [place] [id number]. Amina Escobar MONO # 0.6 103/ul Normal 0.3-0.8 The [facility] [place] Comment on above: Performed By: #### C BC ####[facility] Zswkdfjqls3757 [place] [address]Dr. Amina Escobar Monocytes/100 WBC (Bld) 8.8 % Normal 1.7-12.0 [facility] [place] Comment on above: Performed By: #### C BC ####[facility] Osgogdobau[address] [place] [phone]. Amina Escobar NEUT # 5.6 103/ul Normal 1.4-6.5 [facility] [place] Comment on above: Performed By: #### C BC ####[facility] [place] Ggsvawggdj99[address] [place] [address]Dr. Amina Escobar Neutrophils/100 WBC (Bld) 79.0 % Critically high 43.0-75.0 The [facility] [place] Comment on above: Performed By: #### C BC ####[facility] [place] Sshuucpqmj5[address] [place] [phone]. Amina Escobar Platelet mean volume (Bld) [Entitic vol] 10.1 fL Normal 9.5-13.5 The [facility] [place] Comment on above: Performed By: #### C BC ####[facility] [place] [address]sehvpqes[address] [place] [phone]. Amina Escobar PLT 215 103/ul Normal 150-450 [facility] [place] Comment on above: Performed By: #### C BC ####[facility] Huhvrftwlk6594 [place] [address]Dr. Amina Escobar RBC 3.67 106/ul Critically low 4.70-6.10 [facility] [place] Comment on above: Performed By: #### C BC ####[facility] [place] Ztxiabzwtr7[address] [place] [address]Dr. Amina Escobar WBC 7.1 103/ul Normal 4.0-11.0 [facility] [place] Comment on above: Performed By: #### C BC ####[facility] [place] X[address]tw[address]jtl[address] [place] [address]Dr. Amina Escobar PRBC LEUKOREDUCEDon 07-09-20 PRBC LEUKOREDUCED Normal The [facility] [place] Comment on above: Performed By: #### P RBC, TNS ####[facility] [place] Beixycqhcq[address] [place], [place] [address]Dr. Amina Escobar Performed By: #### P RBC ####[facility] [place] Zqzeooixhi9[address] [place], [place] [address]Dr. Amina Escobar PRBC LEUKOREDUCED Normal The [facility] [place] Comment on above: Performed By: #### P RBC ####[facility] Mgsasmcfzg[address] [place], [place] [address]Dr. Amina Escobar HEMOGLOBIN AND HEMATOCRITon 07-08-2022 Hematocrit (Bld) [Volume fraction] 25.4 % Critically low 42.0-54.0 [facility] Comment on above: Performed By: #### H GBHCT ####[facility] [place] Pdzjknardd[address] [place], [place] [address]Dr. Amina Escobar Hemoglobin (Bld) [Mass/Vol] 7.5 g/dL Critically low 14.0-18.0 [facility] [place] Comment on above: Performed By: #### H GBHCT ####[facility] [place] N[address]uycty[address] [place], [place] [address]Dr. Amina Escobar TYPE AND SCREENon 07-08-2022 TYPE AND SCREEN Negative Normal [facility] [place] Comment on above: Performed By: #### P RBC, TNS ####[facility] Tyxdzpvypo7[address] [place], [place] [address]Dr. Amina Escobar CBC AUTO DIFFon 07-06-2022 BASO # 0.1 103/ul Normal 0.0-0.1 The [facility] [place] Comment on above: Performed By: #### C BC ####[facility] [place] Ljcctwhcoc[address] [place], [place] [address]Dr. Amina Escobar Basophils/100 WBC (Bld) 0.8 % Normal 0.2-2.0 The [facility] [place] Comment on above: Performed By: #### C BC ####[facility] Zkthirzres[address] [place], [place] [address]Dr. Amina Escobar EO # 0.1 103/ul Normal 0.0-0.7 [facility] [place] Comment on above: Performed By: #### C BC ####[facility] I[address]ptizmfd25[address] [place] [address]Dr. Amina Escobar Eosinophils/100 WBC (Bld) 1.8 % Normal 0.9-7.0 [facility] [place] Comment on above: Performed By: #### C BC ####[facility] Ewbapdgatu[address] [place], [place] [address]Dr. Amina Escobar Erythrocyte distribution width (RBC) [Ratio] 15.9 % Critically high 11.0-15.0 [facility] [place] Comment on above: Performed By: #### C BC ####[facility] Z[address]wwpbhnz[address] [place], [place] [address]Dr. Amina Escobar Hematocrit (Bld) [Volume fraction] 24.7 % Critically low 42.0-54.0 [facility] [place] Comment on above: Performed By: #### C BC ####[facility] Y[address]zfdaig[address] [place], [place] [address]Dr. Amina Escobar Hemoglobin (Bld) [Mass/Vol] 7.4 g/dL Critically low 14.0-18.0 [facility] [place] Comment on above: Performed By: #### C BC ####[facility] [place] R[address]ivhwn[address] [place], [place] [address]Dr. Amina Escobar IG # 0.02 10e3/ul Normal 0.00-0.03 [facility] [place] Comment on above: Performed By: #### C BC ####[facility] Txswnidewu[address] [place], [place] [address]Dr. Amina Escobar IG % 0.3 % Normal 0.0-0.5 [facility] [place] Comment on above: Performed By: #### C BC ####[facility] Vizknxkyeh[address] [place], [place] [address]Dr. Amina Escobar LYMPH # 0.7 103/ul Critically low 1.2-3.8 The [facility] [place] Comment on above: Performed By: #### C BC ####[facility] [address]fjv[address] [place] [address]Dr. Amina Shawn Lymphocytes/100 WBC (Bld) 10.6 % Critically low 20.5-60.0 [facility] [place] Comment on above: Performed By: #### C BC ####[facility] [address]jw[address] [place] [address]Dr. Kandielda Escobar MANUAL DIFF REQ NO Normal The [facility] [place] Comment on above: Performed By: #### C BC ####[facility] [address]awjbacck[address] [place] [address]Dr. Amina Shawn MCH (RBC) [Entitic mass] 29.1 pg Normal 25.9-34.0 [facility] [place] Comment on above: Performed By: #### C BC ####[facility] [address]vzagdktpx[address] [place], [place] [address]Dr. Amina Shawn MCHC (RBC) [Mass/Vol] 30.0 g/dL Normal 29.9-35.2 [facility] [place] Comment on above: Performed By: #### C BC ####[facility] W[address]unsxwns[address] [place], [place] [address]Dr. Kandielda Escobar MCV (RBC) [Entitic vol] 97.2 fL Critically high 80.0-94.0 [facility] [place] Comment on above: Performed By: #### C BC ####[facility] R[address]ombnoa[address] [place], [place] [address]Dr. Amina Escobar MONO # 0.6 103/ul Normal 0.3-0.8 [facility] [place] Comment on above: Performed By: #### C BC ####[facility] [address]qnn[address] [place], [place] [address]Dr. Kandielda Escobar Monocytes/100 WBC (Bld) 9.1 % Normal 1.7-12.0 [facility] Comment on above: Performed By: #### C BC ####[facility] Wbbralinda65[address] [place], [place] [address]Dr. Amina Escobar NEUT # 4.8 103/ul Normal 1.4-6.5 [facility] Comment on above: Performed By: #### C BC ####[facility] [address]kerx[address] [place] [address]Dr. Amina Escobar Neutrophils/100 WBC (Bld) 77.4 % Critically high 43.0-75.0 [facility] Comment on above: Performed By: #### C BC ####[facility] Wtbrehhwqx[address] [place] [address]Dr. Amina Escobar Platelet mean volume (Bld) [Entitic vol] 10.4 fL Normal 9.5-13.5 [facility] Comment on above: Performed By: #### C BC ####[facility] Jcurksiulm13[address] [place], [place] [address]Dr. Amina Escobar PLT 263 103/ul Normal 150-450 The [facility] Comment on above: Performed By: #### C BC ####[facility] Ossdwsiite[address] [place], [place] [address]Dr. Amina Escobar RBC 2.54 106/ul Critically low 4.70-6.10 [facility] Comment on above: Performed By: #### C BC ####[facility] Sqvjjvolvl57[address] [place], [place] [address]Dr. Amina Escobar WBC 6.1 103/ul Normal 4.0-11.0 [facility] Comment on above: Performed By: #### C BC ####[facility] Ctmuadkvbq[address] [place], [place] [address]Dr. Amina Escobar HEMOGLOBIN AND HEMATOCRITon 06-23-2022 Hematocrit (Bld) [Volume fraction] 29.2 % Critically low 42.0-54.0 The [facility] Comment on above: Performed By: #### H GBHCT ####[facility] Pdcscdsxvw[address] [place], [place] [address]Dr. Amina Escobar Hemoglobin (Bld) [Mass/Vol] 9.3 g/dL Critically low 14.0-18.0 The [facility] Comment on above: Performed By: #### H GBHCT ####[facility] Axvwvqnhsp39[address] [place], [place] [address]Dr. Amina Escobar TYPE AND SCREENon 06-23-2022 TYPE AND SCREEN Negative Normal The [facility] Comment on above: Performed By: #### T NS ####[facility] Khx[address]vcpxfv27[address] [place] [id number]. Amina Escobar CBC AUTO DIFFon 06-22-2022 BASO # 0.0 103/ul Normal 0.0-0.1 The [facility] Comment on above: Performed By: #### C BC ####[facility] Rtzwsbbglh8903 [place] [id number]. Amina Escobar Basophils/100 WBC (Bld) 0.7 % Normal 0.2-2.0 The [facility] Comment on above: Performed By: #### C BC ####[facility] [address]hrvzum[address] [place] [address]Dr. Amina Escobar EO # 0.2 103/ul Normal 0.0-0.7 The [facility] Comment on above: Performed By: #### C BC ####[facility] Hbudbgagmp7588[address] [place], [place] [address]Dr. Amina Escobar Eosinophils/100 WBC (Bld) 3.2 % Normal 0.9-7.0 The [facility] Comment on above: Performed By: #### C BC ####[facility] Knyucbodad90[address] [place], [place] [address]Dr. Amina Escobar Erythrocyte distribution width (RBC) [Ratio] 15.6 % Critically high 11.0-15.0 The [facility] Comment on above: Performed By: #### C BC ####[facility] Jljgwqswvr5[address] [place], [place] [address]Dr. Amina Escobar Hematocrit (Bld) [Volume fraction] 24.9 % Critically low 42.0-54.0 The [facility] Comment on above: Performed By: #### C BC ####[facility] Itwycukmrk4876[address] [place], [place] [address]Dr. Amina Escobar Hemoglobin (Bld) [Mass/Vol] 7.6 g/dL Critically low 14.0-18.0 The [facility] Comment on above: Performed By: #### C BC ####[facility] Ldfdswcxyy[address] [place], [place] [address]Dr. Amina Escobar IG # 0.03 10e3/ul Normal 0.00-0.03 [facility] Comment on above: Performed By: #### C BC ####[facility] Rbtoggrsvx[address] [place] [address]DrMemo Kandielda Escobar IG % 0.5 % Normal 0.0-0.5 [facility] Comment on above: Performed By: #### C BC ####[facility] Kuvgqhikkk[address] [place] [address]DrMemo Escobar LYMPH # 0.6 103/ul Critically low 1.2-3.8 [facility] Comment on above: Performed By: #### C BC ####[facility] Kroipnielm[address] [place] [address]DrMemo Kandielda Escobar Lymphocytes/100 WBC (Bld) 9.3 % Critically low 20.5-60.0 [facility] Comment on above: Performed By: #### C BC ####[facility] Fofcqqyhyr[address] [place], [place] [address]DrMemo Escobar MANUAL DIFF REQ NO Normal [facility] Comment on above: Performed By: #### C BC ####[facility] Snsizlhmas[address] [place] [address]Dr. Kandielda Escobar MCH (RBC) [Entitic mass] 30.2 pg Normal 25.9-34.0 [facility] Comment on above: Performed By: #### C BC ####[facility] Xhleqlcieo6[address] [place] [address]DrMemo Kandielda Escobar MCHC (RBC) [Mass/Vol] 30.5 g/dL Normal 29.9-35.2 [facility] Comment on above: Performed By: #### C BC ####[facility] Wstisjkkoq[address] [place], [place] [address]DrMemo Kandielda Escobar MCV (RBC) [Entitic vol] 98.8 fL Critically high 80.0-94.0 [facility] Comment on above: Performed By: #### C BC ####[facility] Heyiqjauck2[address] [place], [place] [address]DrMemo Escobar MONO # 0.4 103/ul Normal 0.3-0.8 [facility] Comment on above: Performed By: #### C BC ####[facility] Fspsorsixa8[address] [place] [id number]. Amina Escobar Monocytes/100 WBC (Bld) 6.4 % Normal 1.7-12.0 [facility] Comment on above: Performed By: #### C BC ####[facility] Ijsffyfdex67[address] [place] [phone]. Amina Escobar NEUT # 4.8 103/ul Normal 1.4-6.5 [facility] Comment on above: Performed By: #### C BC ####[facility] Gepqowfiba94[address] [place] [phone]. Amina Escobar Neutrophils/100 WBC (Bld) 79.9 % Critically high 43.0-75.0 [facility] Comment on above: Performed By: #### C BC ####[facility] Urgiusojfc[address] [place] [address]Dr. Amina Escobar Platelet mean volume (Bld) [Entitic vol] 10.3 fL Normal 9.5-13.5 [facility] Comment on above: Performed By: #### C BC ####[facility] Hhpvwzrmui9[address] [place] [phone]. Amina Escobar PLT 205 103/ul Normal 150-450 [facility] Comment on above: Performed By: #### C BC ####[facility] Hyucaknnmg4187 [place] [phone]. Amina Escobar RBC 2.52 106/ul Critically low 4.70-6.10 [facility] Comment on above: Performed By: #### C BC ####[facility] Firzwapcam6918 [place] [phone]. Amina Escobar WBC 5.9 103/ul Normal 4.0-11.0 The [facility] Comment on above: Performed By: #### C BC ####[facility] Feypehooeq37[address] [place] [phone]. Amina Escobar CBC AUTO DIFFon 06-16-2022 BASO # 0.1 103/ul Normal 0.0-0.1 The [facility] Comment on above: Performed By: #### C BC ####[facility] Qrwmjbipcy4256 [place] [phone]. Amina Escobar Basophils/100 WBC (Bld) 0.7 % Normal 0.2-2.0 The [facility] Comment on above: Performed By: #### C BC ####[facility] Talvjqdcxl33[address] [place], [place] [address]Dr. Amina Escobar EO # 0.2 103/ul Normal 0.0-0.7 [facility] Comment on above: Performed By: #### C BC ####[facility] Xcyjrnhhjn22[address] [place], [place] [address]Dr. Amina Escobar Eosinophils/100 WBC (Bld) 2.7 % Normal 0.9-7.0 The [facility] Comment on above: Performed By: #### C BC ####[facility] Ijvqaktgsv[address] [place], [place] [address]Dr. Amina Escobar Erythrocyte distribution width (RBC) [Ratio] 16.5 % Critically high 11.0-15.0 [facility] Comment on above: Performed By: #### C BC ####[facility] Cqxiywdnkb[address] [place], [place] [address]Dr. Amina Escobar Hematocrit (Bld) [Volume fraction] 28.5 % Critically low 42.0-54.0 The [facility] Comment on above: Performed By: #### C BC ####[facility] Yzfoqsegnv7[address] [place], [place] [address]Dr. Amina Escobar Hemoglobin (Bld) [Mass/Vol] 8.6 g/dL Critically low 14.0-18.0 The [facility] Comment on above: Performed By: #### C BC ####[facility] Ijcbzrepmx[address] [place], [place] [address]Dr. Amina Escobar IG # 0.03 10e3/ul Normal 0.00-0.03 The [facility] Comment on above: Performed By: #### C BC ####[facility] Rkenbgcamj38[address] [place], [place] [address]Dr. Amina Escobar IG % 0.4 % Normal 0.0-0.5 [facility] Comment on above: Performed By: #### C BC ####[facility] Xtevaetkfh[address] [place] [address]DrMemo Amina Shawn LYMPH # 0.8 103/ul Critically low 1.2-3.8 The [facility] Comment on above: Performed By: #### C BC ####[facility] Cpestoypzu0399 [place] [phone]. Amina Escobar Lymphocytes/100 WBC (Bld) 11.1 % Critically low 20.5-60.0 [facility] Comment on above: Performed By: #### C BC ####[facility] Nfzmdtnjyt8[address] [place] [address]DrMemo Escobar MANUAL DIFF REQ NO Normal [facility] Comment on above: Performed By: #### C BC ####[facility] Qemyfxwybt6972[address] [place], [place] [address]Dr. Amina Escobar MCH (RBC) [Entitic mass] 30.3 pg Normal 25.9-34.0 [facility] Comment on above: Performed By: #### C BC ####[facility] Rjzjujpvxa[address] [place] [address]Dr. Kandielda Escobar MCHC (RBC) [Mass/Vol] 30.2 g/dL Normal 29.9-35.2 [facility] Comment on above: Performed By: #### C BC ####[facility] Ku[address]woewmf[address] [place], [place] [address]DrMemo Escobar MCV (RBC) [Entitic vol] 100.4 fL Critically high 80.0-94.0 [facility] Comment on above: Performed By: #### C BC ####[facility] Sosimzgcfj8141 [place] [phone] Escobar MONO # 0.6 103/ul Normal 0.3-0.8 [facility] Comment on above: Performed By: #### C BC ####[facility] Qfltzulvpg6210 [place] [phone]. Amina Escobar Monocytes/100 WBC (Bld) 8.4 % Normal 1.7-12.0 [facility] Comment on above: Performed By: #### C BC ####[facility] Emdszqghjz3506 [place] [phone]. Amina Escobar NEUT # 5.3 103/ul Normal 1.4-6.5 [facility] Comment on above: Performed By: #### C BC ####[facility] Beqenlixbb9263 [place] [phone]. Amina Escobar Neutrophils/100 WBC (Bld) 76.7 % Critically high 43.0-75.0 [facility] Comment on above: Performed By: #### C BC ####[facility] Sinrkowndm8066 [place] [address]Dr. Amina Escobar Platelet mean volume (Bld) [Entitic vol] 9.7 fL Normal 9.5-13.5 [facility] Comment on above: Performed By: #### C BC ####[facility] Ppokkpzjfx23[address] [place] [address]Dr. Amina Escobar PLT 216 103/ul Normal 150-450 [facility] Comment on above: Performed By: #### C BC ####[facility] Imadblywqt[address] [place], [place] [address]Dr. Amina Escobar RBC 2.84 106/ul Critically low 4.70-6.10 [facility] Comment on above: Performed By: #### C BC ####[facility] Xrpyrozeoc5014 [place] [phone]. Amina Escobar WBC 6.9 103/ul Normal 4.0-11.0 [facility] Comment on above: Performed By: #### C BC ####[facility] Xujugddwym3546 [place] [phone]. Amina Escobar CBC AUTO DIFFon 06-10-2022 BASO # 0.0 103/ul Normal 0.0-0.1 [facility] Comment on above: Performed By: #### C BC ####[facility] Aefufiktis4719 [place] [phone]. Amina Escobar Basophils/100 WBC (Bld) 0.5 % Normal 0.2-2.0 [facility] Comment on above: Performed By: #### C BC ####[facility] Zqbdsdeevk62[address] [place] [address]Dr. Amina Escobar EO # 0.1 103/ul Normal 0.0-0.7 [facility] Comment on above: Performed By: #### C BC ####[facility] Eawpeiaxyb5912 [place] [address]DrMemo Kandielda Escobar Eosinophils/100 WBC (Bld) 2.2 % Normal 0.9-7.0 [facility] Comment on above: Performed By: #### C BC ####[facility] Rmmxjtxiej[address] [place], [place] [address]Dr. Kandielda Escobar Erythrocyte distribution width (RBC) [Ratio] 17.9 % Critically high 11.0-15.0 [facility] Comment on above: Performed By: #### C BC ####[facility] Eptvxnrrap9[address] [place], [place] [address]DrMemo Escobar Hematocrit (Bld) [Volume fraction] 24.5 % Critically low 42.0-54.0 [facility] Comment on above: Performed By: #### C BC ####[facility] Pcsoftzsst8[address] [place], [place] [address]DrMemo Amina Escobar Hemoglobin (Bld) [Mass/Vol] 7.9 g/dL Critically low 14.0-18.0 [facility] Comment on above: Performed By: #### C BC ####[facility] Qvfcpgcjrg0228[address] [place], [place] [address]DrMemo Kandielda Escobar IG # 0.02 10e3/ul Normal 0.00-0.03 The [facility] Comment on above: Performed By: #### C BC ####[facility] Cvhlwmcipe[address] [place], [place] [address]DrMemo Escobar IG % 0.3 % Normal 0.0-0.5 The [facility] Comment on above: Performed By: #### C BC ####[facility] Eewifmofuf9[address] [place], [place] [address]DrMemo Escobar LYMPH # 0.8 103/ul Critically low 1.2-3.8 [facility] Comment on above: Performed By: #### C BC ####[facility] Ukdjgvovok7086 [place] [address]DrMemo Escobar Lymphocytes/100 WBC (Bld) 12.3 % Critically low 20.5-60.0 [facility] Comment on above: Performed By: #### C BC ####[facility] Drbtjquhaq9830 [place] [address]DrMemo Escobar MANUAL DIFF REQ NO Normal [facility] Comment on above: Performed By: #### C BC ####[facility] Xngnqrqlmy6661 [place] [address]DrMemo Escobar MCH (RBC) [Entitic mass] 31.6 pg Normal 25.9-34.0 [facility] Comment on above: Performed By: #### C BC ####[facility] Otmdzjvwbj33[address] [place], [place] [address]Dr. Amnia Escobar MCHC (RBC) [Mass/Vol] 32.2 g/dL Normal 29.9-35.2 [facility] Comment on above: Performed By: #### C BC ####[facility] Q[address]jxvhrsy[address] [place], [place] [address]DrMemo Escobar MCV (RBC) [Entitic vol] 98.0 fL Critically high 80.0-94.0 [facility] Comment on above: Performed By: #### C BC ####[facility] Ywtexopnaz28[address] [place], [place] [address]DrMemo Escobar MONO # 0.5 103/ul Normal 0.3-0.8 [facility] Comment on above: Performed By: #### C BC ####[facility] Pkjynsbaza33[address] [place], [place] [address]DrMemo Escobar Monocytes/100 WBC (Bld) 8.6 % Normal 1.7-12.0 [facility] Comment on above: Performed By: #### C BC ####[facility] Aurobucqpq1852[address] [place], [place] [address]DrMemo Escobar NEUT # 4.8 103/ul Normal 1.4-6.5 [facility] Comment on above: Performed By: #### C BC ####[facility] Xhfmnifbdo1636 [place] [address]Dr. Kandielda Shawn Neutrophils/100 WBC (Bld) 76.1 % Critically high 43.0-75.0 [facility] Comment on above: Performed By: #### C BC ####[facility] Zfaxbhbkrh087[address] [place], [place] [address]Dr. Amina Escobar Platelet mean volume (Bld) [Entitic vol] 10.4 fL Normal 9.5-13.5 [facility] Comment on above: Performed By: #### C BC ####[facility] Tjafajmxaz3337[address] [place], [place] [address]Dr. Amina Escobar PLT 206 103/ul Normal 150-450 [facility] Comment on above: Performed By: #### C BC ####[facility] Ufdtoexauz[address] [place], [place] [address]Dr. Amina Escobar RBC 2.50 106/ul Critically low 4.70-6.10 [facility] Comment on above: Performed By: #### C BC ####[facility] Fzswrottsg0[address] [place], [place] [address]Dr. Amina Escobar WBC 6.3 103/ul Normal 4.0-11.0 [facility] Comment on above: Performed By: #### C BC ####[facility] Yhqnpxovvx4592[address] [place], [place] [address]Dr. Amina Escobar HEMOGLOBIN AND HEMATOCRITon 06-10-2022 Hematocrit (Bld) [Volume fraction] 27.8 % Critically low 42.0-54.0 [facility] Comment on above: Performed By: #### H GBHCT ####[facility] Idudehisbg2347[address] [place], [place] [address]Dr. Amina Escobar Hemoglobin (Bld) [Mass/Vol] 9.0 g/dL Critically low 14.0-18.0 [facility] Comment on above: Performed By: #### H GBHCT ####[facility] Hqjngpcjbt414[address] [place], [place] [address]Dr. Amina Escobar CBC AUTO DIFFon 06-09-2022 BASO # 0.0 103/ul Normal 0.0-0.1 [facility] Comment on above: Performed By: #### C BC ####[facility] Lykqnvlhyh[address] [place] [address]Dr. Amina Escobar Basophils/100 WBC (Bld) 0.6 % Normal 0.2-2.0 [facility] Comment on above: Performed By: #### C BC ####[facility] Msnjvpexzr4976 [place] [address]Dr. Amina Escobar EO # 0.1 103/ul Normal 0.0-0.7 [facility] Comment on above: Performed By: #### C BC ####[facility] Ddplaxvyjn48[address] [place], [place] [address]Dr. Amina Escobar Eosinophils/100 WBC (Bld) 1.8 % Normal 0.9-7.0 [facility] Comment on above: Performed By: #### C BC ####[facility] Qeevdbyfir32[address] [place], [place] [address]Dr. Amina Escobar Erythrocyte distribution width (RBC) [Ratio] 16.9 % Critically high 11.0-15.0 [facility] Comment on above: Performed By: #### C BC ####[facility] Xzycemqbss[address] [place], [place] [address]Dr. Amina Escobar Hematocrit (Bld) [Volume fraction] 21.2 % Critically low 42.0-54.0 [facility] Comment on above: Performed By: #### C BC ####[facility] Frughtoyrs[address] [place], [place] [address]Dr. Amina Escobar Hemoglobin (Bld) [Mass/Vol] 6.4 g/dL Critically low 14.0-18.0 [facility] Comment on above: Performed By: #### C BC ####[facility] Qepphyrejy[address] [place], [place] [address]Dr. Amina Escobar IG # 0.03 10e3/ul Normal 0.00-0.03 [facility] Comment on above: Performed By: #### C BC ####[facility] Exugcbobqp3261 [place] [phone]. Amina Escobar IG % 0.5 % Normal 0.0-0.5 [facility] Comment on above: Performed By: #### C BC ####[facility] Dfdkcheeoc2584 [place] [phone]. Amina Escobar LYMPH # 0.6 103/ul Critically low 1.2-3.8 [facility] Comment on above: Performed By: #### C BC ####[facility] Ggvbrhpijn6551 [place] [phone]. Amina Escobar Lymphocytes/100 WBC (Bld) 8.9 % Critically low 20.5-60.0 [facility] Comment on above: Performed By: #### C BC ####[facility] Jantilqgas[address] [place] [address]Dr. Amina Shawn MANUAL DIFF REQ NO Normal [facility] Comment on above: Performed By: #### C BC ####[facility] Qtxclgqoeg49[address] [place] [id number]. Amina Escobar MCH (RBC) [Entitic mass] 31.1 pg Normal 25.9-34.0 [facility] Comment on above: Performed By: #### C BC ####[facility] Clwgdxrlpe7[address] [place] [id number]. Amina Escobar MCHC (RBC) [Mass/Vol] 30.2 g/dL Normal 29.9-35.2 [facility] Comment on above: Performed By: #### C BC ####[facility] Trkeuzepxm1319 [place] [id number]. Amina Escobar MCV (RBC) [Entitic vol] 102.9 fL Critically high 80.0-94.0 [facility] Comment on above: Performed By: #### C BC ####[facility] Amsfzqgvri[address] [place] [address]Dr. Amina Shawn MONO # 0.4 103/ul Normal 0.3-0.8 [facility] Comment on above: Performed By: #### C BC ####[facility] Yngkggcdyv8491 [place] [id number]. Amina Escobar Monocytes/100 WBC (Bld) 6.6 % Normal 1.7-12.0 [facility] Comment on above: Performed By: #### C BC ####[facility] Redspnhzxf1851 [place] [id number]. Amina Escobar NEUT # 5.4 103/ul Normal 1.4-6.5 [facility] Comment on above: Performed By: #### C BC ####[facility] Hnaotjwmnv4227 [place] [id number]. Amina Escobar Neutrophils/100 WBC (Bld) 81.6 % Critically high 43.0-75.0 [facility] Comment on above: Performed By: #### C BC ####[facility] Vzjlhawxdh1814 [place] [id number]. Amina Escobar Platelet mean volume (Bld) [Entitic vol] 9.7 fL Normal 9.5-13.5 [facility] Comment on above: Performed By: #### C BC ####[facility] Atbyzxpaqj4701 [place] [id number]. Amina Escobar PLT 201 103/ul Normal 150-450 [facility] Comment on above: Performed By: #### C BC ####[facility] Uyxbpiryhj5072 [place] [id number]. Amina Escobar RBC 2.06 106/ul Critically low 4.70-6.10 [facility] Comment on above: Performed By: #### C BC ####[facility] Dgajilbxkk2697 [place] [id number]. Amina Escobar WBC 6.6 103/ul Normal 4.0-11.0 [facility] Comment on above: Performed By: #### C BC ####[facility] Piivdbtcvf9804 [place] [id number]. Amina Escobar TYPE AND SCREENon 06-09-2022 TYPE AND SCREEN Negative Normal [facility] Comment on above: Performed By: #### T NS ####[facility] Mnjqpsassa[address] [place], [place] [address]Dr. Amina Escobar CBC AUTO DIFFon 06-02-2022 BASO # 0.1 103/ul Normal 0.0-0.1 [facility] Comment on above: Performed By: #### C BC ####[facility] Mqcxhydcqx69[address] [place] [address]Dr. Amina Escobar Basophils/100 WBC (Bld) 0.6 % Normal 0.2-2.0 [facility] Comment on above: Performed By: #### C BC ####[facility] Kwrfkiwvsf8[address] [place] [address]Dr. Amina Escobar EO # 0.2 103/ul Normal 0.0-0.7 [facility] Comment on above: Performed By: #### C BC ####[facility] Wybtefbmcl4971 [place] [address]Dr. Amina Shawn Eosinophils/100 WBC (Bld) 2.5 % Normal 0.9-7.0 [facility] Comment on above: Performed By: #### C BC ####[facility] Xdvjqngmge7617 [place] [address]Dr. Amina Escobar Erythrocyte distribution width (RBC) [Ratio] 17.6 % Critically high 11.0-15.0 [facility] Comment on above: Performed By: #### C BC ####[facility] Jxqihnpolo25[address] [place] [address]Dr. Amina Escobar Hematocrit (Bld) [Volume fraction] 26.6 % Critically low 42.0-54.0 [facility] Comment on above: Performed By: #### C BC ####[facility] Ytmfqzsica7181 [place] [address]Dr. Amina Escobar Hemoglobin (Bld) [Mass/Vol] 8.2 g/dL Critically low 14.0-18.0 [facility] Comment on above: Performed By: #### C BC ####[facility] Vwngjlxcdg0012 [place] [address]Dr. Amina Shawn IG # 0.04 10e3/ul Critically high 0.00-0.03 [facility] Comment on above: Performed By: #### C BC ####[facility] Twohisiicq7690 [place] [id number]. Amina Escobar IG % 0.5 % Normal 0.0-0.5 [facility] Comment on above: Performed By: #### C BC ####[facility] Mrkptladwi4588 [place] [id number]. Amina Escobar LYMPH # 0.7 103/ul Critically low 1.2-3.8 [facility] Comment on above: Performed By: #### C BC ####[facility] Sidsykrjod0058 [place] [phone]. Amina Escobar Lymphocytes/100 WBC (Bld) 8.5 % Critically low 20.5-60.0 [facility] Comment on above: Performed By: #### C BC ####[facility] Plwotioycv0793 [place] [phone]. Amina Escobar MANUAL DIFF REQ NO Normal [facility] Comment on above: Performed By: #### C BC ####[facility] Cijqyxteei5563 [place] [phone]. Amina Escobar MCH (RBC) [Entitic mass] 31.7 pg Normal 25.9-34.0 [facility] Comment on above: Performed By: #### C BC ####[facility] Qyaylbsrfe4715 [place] [phone]. Amina Escobar MCHC (RBC) [Mass/Vol] 30.8 g/dL Normal 29.9-35.2 [facility] Comment on above: Performed By: #### C BC ####[facility] Gqauwmjuia4891 [place] [phone]. Amina Escobar MCV (RBC) [Entitic vol] 102.7 fL Critically high 80.0-94.0 [facility] Comment on above: Performed By: #### C BC ####[facility] Cbktfhjegn4138 [place] [phone]. Amina Escobar MONO # 0.6 103/ul Normal 0.3-0.8 [facility] Comment on above: Performed By: #### C BC ####[facility] Aqfngtncos6628 [place] [phone]. Amina Escobar Monocytes/100 WBC (Bld) 8.0 % Normal 1.7-12.0 [facility] Comment on above: Performed By: #### C BC ####[facility] Kkdrazegtu6396 [place] [phone]. Amina Escobar NEUT # 6.4 103/ul Normal 1.4-6.5 [facility] Comment on above: Performed By: #### C BC ####[facility] Rmqhwqqxoy4747 [place] [phone]. Amina Escobar Neutrophils/100 WBC (Bld) 79.9 % Critically high 43.0-75.0 [facility] Comment on above: Performed By: #### C BC ####[facility] Qxluhzutcp3999 [place] [phone]. Amina Escobar Platelet mean volume (Bld) [Entitic vol] 10.1 fL Normal 9.5-13.5 [facility] Comment on above: Performed By: #### C BC ####[facility] Hojqdhcdmt3376 [place] [phone]. Amina Escobar PLT 211 103/ul Normal 150-450 [facility] Comment on above: Performed By: #### C BC ####[facility] Btkrqxdtrw1033 [place] [phone]. Amina Escobar RBC 2.59 106/ul Critically low 4.70-6.10 [facility] Comment on above: Performed By: #### C BC ####[facility] Xcplmfzipb2348 [place] [phone]. Amina Escobar WBC 8.0 103/ul Normal 4.0-11.0 [facility] Comment on above: Performed By: #### C BC ####[facility] Fupvasvgrl9588 [place] [phone]. Amina Escobar CBC W MANUAL DIFFon 05-28-20 22 ANISOCYTOSIS 1+ Normal [facility] Comment on above: Performed By: #### C BCMAN ####[facility] Yuwqtxiqun1405 [place] [phone]. Amina Escobar ATYPICAL LYMPH # Normal [facility] Comment on above: Performed By: #### C BCKELLY ####[facility] Rkyrhqqelc2778 [place] [address]Dr. Amina Escobar ATYPICAL LYMPH % Normal [facility] Comment on above: Performed By: #### C BCMAN ####[facility] Uxlaxuehgh1425 [place] [address]Dr. Yilan Escobar BAND # 0.0 103/ul Normal 0.0-0.3 [facility] Comment on above: Performed By: #### C BCKELLY ####[facility] [address]ox[address]xldd[address] [place], [place] [address]Dr. Yilan Escobar BAND % 0 % Normal 0-5 [facility] Comment on above: Performed By: #### C ALEX ####[facility] Tcchsgapgr[address] [place], [place] [address]Dr. Amina Escobar BASOM # 0.06 103/ul Normal 0.00-0.10 [facility] Comment on above: Performed By: #### C ALEX ####[facility] Zpbqfgsmqj16[address] [place], [place] [address]Dr. Amina Escobar BASOM % 1.0 % Normal 0.2-2.0 [facility] Comment on above: Performed By: #### C ALEX ####[facility] Enslggqrhb56[address] [place], [place] [address]Dr. Yielda Escobar BLAST # Normal [facility] Comment on above: Performed By: #### C ALEX ####[facility] Naidyuwycu23[address] [place], [place] [address]Dr. Yilan Escobar BLAST % Normal [facility] Comment on above: Performed By: #### C ALXE ####[facility] Puamltxowm40[address] [place], [place] [address]Dr. Amina Escobar CORRECTED WBC Normal 4.0-11.0 [facility] Comment on above: Performed By: #### C BCKELLY ####[facility] Bikcfsqqik[address] [place], [place] [address]Dr. Yilan Escobar EOS # 0.06 103/ul Normal 0.00-0.70 [facility] Comment on above: Performed By: #### C ALEX ####[facility] Yvjnzucrcz6458 [place] [address]Dr. Amina Escobar EOS% 1.0 % Normal 0.9-7.0 [facility] Comment on above: Performed By: #### C ALEX ####[facility] Mtbaletgcd4576 [place] [address]Dr. Amina Escobar HCT 26.6 % Critically low 42.0-54.0 [facility] Comment on above: Performed By: #### C ALEX ####[facility] Xcpluxsjbr3532 [place] [address]Dr. Amina Escobar HGB 8.5 g/dl Critically low 14.0-18.0 [facility] Comment on above: Performed By: #### C ALEX ####[facility] Wcthbvooqq027[address] [place], [place] [address]Dr. Amina Escobar HYPOCHROMASIA 1+ Normal [facility] Comment on above: Performed By: #### C ALEX ####[facility] B[address]qqamwjj[address] [place], [place] [address]Dr. Amina Escobar LYMPHM # 0.93 103/ul Critically low 1.20-3.80 [facility] Comment on above: Performed By: #### C ALEX ####[facility] Yytzgevtar[address] [place], [place] [address]Dr. Amina Escobar LYMPHM% 15.0 % Critically low 20.5-60.0 [facility] Comment on above: Performed By: #### C ALEX ####[facility] Kqfoxlpcca0[address] [place], [place] [address]Dr. Amina Escobar MCH 31.3 pg Normal 25.9-34.0 [facility] Comment on above: Performed By: #### C ALEX ####[facility] Ohlgmpicxr87[address] [place], [place] [address]Dr. Amina Escobar MCHC 32.0 g/dl Normal 29.9-35.2 [facility] Comment on above: Performed By: #### C ALEX ####[facility] Xunmkmcwax7256 [place] [phone]. Amina Escobar MCV 97.8 fL Critically high 80.0-94.0 [facility] Comment on above: Performed By: #### C ALEX ####[facility] Nrzvhggqyb7361 [place] [phone]. Amina Escobar METAMYELOCYTE # Normal [facility] Comment on above: Performed By: #### C ALEX ####[facility] Uyepyuvcae3149 [place] [address]Dr. Amina Escobar METAMYELOCYTE % Normal [facility] Comment on above: Performed By: #### C ALEX ####[facility] Nkfboynsjq9[address] [place], [place] [address]Dr. Amina Escobar MONOM# 0.50 103/ul Normal 0.30-0.80 [facility] Comment on above: Performed By: #### Florence JOHNSON ####[facility] Ulgrbjfdnk59[address] [place], [place] [address]Dr. Amina Escobar MONOM% 8.0 % Normal 1.7-12.0 [facility] Comment on above: Performed By: #### Florence JOHNSON ####[facility] Yrlgzcnlvy08[address] [place], [place] [address]Dr. Amina Escobar MPV 10.2 fL Normal 9.5-13.5 [facility] Comment on above: Performed By: #### Florence JOHNSON ####[facility] Wxyglttvoq4318[address] [place], [place] [address]Dr. Amina Escobar MYELOCYTE # Normal [facility] Comment on above: Performed By: #### C ALEX ####[facility] Duxcidbnop6[address] [place], [place] [address]Dr. Amina Escobar MYELOCYTE % Normal [facility] Comment on above: Performed By: #### C ALEX ####[facility] Pexlnqanya2130[address] [place], [place] [address]Dr. Amina Escobar NRBC Normal [facility] Comment on above: Performed By: #### C ALEX ####[facility] Ysrgyqwvjb2681 [place] [phone]. Amina Escobar PLT 194 103/ul Normal 150-450 [facility] Comment on above: Performed By: #### C ALEX ####[facility] Lvfvkwhhxj5363 [place] [phone]. Amina Escobar RBC 2.72 106/ul Critically low 4.70-6.10 [facility] Comment on above: Performed By: #### C ALEX ####[facility] Qgaonyythh9237 [place] [phone]. Amina Escobar RDW 18.6 % Critically high 11.0-15.0 [facility] Comment on above: Performed By: #### C ALEX ####[facility] Eghkefmnyr030[address] [place], [place] [address]Dr. Amina Escobar SEG # 4.65 103/ul Normal 1.40-6.50 [facility] Comment on above: Performed By: #### C ALEX ####[facility] Cluizjcaui7[address] [place], [place] [address]Dr. Amina Escobar SEG % 75.0 % Normal 43.0-75.0 [facility] Comment on above: Performed By: #### C ALEX ####[facility] Dlicytbckv211[address] [place], [place] [address]Dr. Amina Escobar WBC 6.2 103/ul Normal 4.0-11.0 [facility] Comment on above: Performed By: #### C ALEX ####[facility] Ahrlpbfcty312[address] [place], [place] [address]Dr. Amina Escobar TYPE AND SCREENon 05-28-2022 TYPE AND SCREEN Negative Normal [facility] Comment on above: Performed By: #### T NS ####[facility] Cgcpdzpdle[address] [place], [place] [address]Dr. Amina Escobar CBC AUTO DIFFon 05-26-2022 BASO # 0.1 103/ul Normal 0.0-0.1 [facility] Comment on above: Performed By: #### C BC ####[facility] Fwgnqyojjh002[address] [place], [place] [address]Dr. Amina Escobar Basophils/100 WBC (Bld) 0.7 % Normal 0.2-2.0 [facility] Comment on above: Performed By: #### C BC ####[facility] Vncxlctkql69[address] [place], [place] [address]Dr. Amina Escobar EO # 0.2 103/ul Normal 0.0-0.7 [facility] Comment on above: Performed By: #### C BC ####[facility] Wffjtmhsqv65[address] [place], [place] [address]Dr. Amina Escobar Eosinophils/100 WBC (Bld) 3.0 % Normal 0.9-7.0 [facility] Comment on above: Performed By: #### C BC ####[facility] Cayeyreuvq[address] [place], [place] [address]Dr. Amina Escobar Erythrocyte distribution width (RBC) [Ratio] 18.9 % Critically high 11.0-15.0 [facility] Comment on above: Performed By: #### C BC ####[facility] Tubolarmal0[address] [place], [place] [address]Dr. Amina Escobar Hematocrit (Bld) [Volume fraction] 25.5 % Critically low 42.0-54.0 [facility] Comment on above: Performed By: #### C BC ####[facility] Ziyxvhgauf9097[address] [place], [place] [address]Dr. Amina Escobar Hemoglobin (Bld) [Mass/Vol] 7.5 g/dL Critically low 14.0-18.0 [facility] Comment on above: Performed By: #### C BC ####[facility] Zcajcdmsyh35[address] [place], [place] [address]Dr. Amina Escobar IG # 0.03 10e3/ul Normal 0.00-0.03 [facility] Comment on above: Performed By: #### C BC ####[facility] Ocwbtibswn[address] [place], [place] [address]Dr. Amina Escobar IG % 0.4 % Normal 0.0-0.5 [facility] Comment on above: Performed By: #### C BC ####[facility] Fhqoelrbbx9534 [place] [address]Dr. Amina Shawn LYMPH # 0.8 103/ul Critically low 1.2-3.8 [facility] Comment on above: Performed By: #### C BC ####[facility] Lplhegemep5885 [place] [address]Dr. Amina Shawn Lymphocytes/100 WBC (Bld) 10.4 % Critically low 20.5-60.0 [facility] Comment on above: Performed By: #### C BC ####[facility] Jqlqgsvuoo75[address] [place], [place] [address]Dr. Kandielda Escobar MANUAL DIFF REQ NO Normal [facility] Comment on above: Performed By: #### C BC ####[facility] Obdtgtjjwl0039 [place] [address]Dr. Amina Shawn MCH (RBC) [Entitic mass] 29.8 pg Normal 25.9-34.0 [facility] Comment on above: Performed By: #### C BC ####[facility] Vpwxlkrhcs[address] [place], [place] [address]Dr. Amina Shawn MCHC (RBC) [Mass/Vol] 29.4 g/dL Critically low 29.9-35.2 [facility] Comment on above: Performed By: #### C BC ####[facility] H[address]wytqslj[address] [place], [place] [address]Dr. Amina Escobar MCV (RBC) [Entitic vol] 101.2 fL Critically high 80.0-94.0 [facility] Comment on above: Performed By: #### C BC ####[facility] Uoumcjwulv[address] [place], [place] [address]Dr. Amina Escobar MONO # 0.6 103/ul Normal 0.3-0.8 [facility] Comment on above: Performed By: #### C BC ####[facility] Jawvixfqid078[address] [place], [place] [address]Dr. Amina Escobar Monocytes/100 WBC (Bld) 8.0 % Normal 1.7-12.0 [facility] Comment on above: Performed By: #### C BC ####[facility] [address]crd[address] [place] [address]Im. Amina Escobar NEUT # 5.7 103/ul Normal 1.4-6.5 [facility] Comment on above: Performed By: #### C BC ####[facility] Rqnolszqlf9419 [place] [address]Dr. Amina Escobar Neutrophils/100 WBC (Bld) 77.5 % Critically high 43.0-75.0 [facility] Comment on above: Performed By: #### C BC ####[facility] Wzryqanbiz2164 [place] [address]Dr. Amina Escobar Platelet mean volume (Bld) [Entitic vol] 10.2 fL Normal 9.5-13.5 [facility] Comment on above: Performed By: #### C BC ####[facility] Uirysdtlen8[address] [place], [place] [address]Dr. Amina Escobar PLT 215 103/ul Normal 150-450 [facility] Comment on above: Performed By: #### C BC ####[facility] [address]zvfzncim7[address] [place], [place] [address]Dr. Amina Escobar RBC 2.52 106/ul Critically low 4.70-6.10 [facility] Comment on above: Performed By: #### C BC ####[facility] Acpmrjxcpo92[address] [place], [place] [address]Dr. Amina Escobar WBC 7.3 103/ul Normal 4.0-11.0 [facility] Comment on above: Performed By: #### C BC ####[facility] H[address]mukkncz[address] [place], [place] [address]Dr. Amina Escobar IRON AND TIBCon 05-26-2022 % SATURATION 13.6 % Normal [facility] Comment on above: Performed By: #### F ETIBC ####[facility] Fctcjpssit[address] [place], [place] [address]Dr. Amina Escobar Iron [Mass/Vol] 36.0 ug/dL Critically low 65.0-175.0 [facility] Comment on above: Performed By: #### F ETIBC ####[facility] Oiqfpbbbuo43[address] [place], [place] [address]Dr. Amina Escobar TIBC DIRECT 265.0 ug/dL Normal 250.0-450. 0 [facility] Comment on above: Performed By: #### F ETIBC ####[facility] Qptfvsfbkt[address] [place], [place] [address]Dr. Amina Escoabr HEMOGLOBINon 05-18-2022 Hemoglobin (Bld) [Mass/Vol] 8.1 g/dL Critically low 14.0-18.0 [facility] Comment on above: Performed By: #### H GB ####[facility] Zcpcimeqto1464[address] [place], [place] [address]Dr. Amina Escobar CBC W MANUAL DIFFon 05-09-20 ATYPICAL LYMPH # Normal [facility] Comment on above: Performed By: #### C ALEX ####[facility] Mhydtctvhh[address] [place], [place] [address]Dr. Amina Escobar ATYPICAL LYMPH % Normal [facility] Comment on above: Performed By: #### C BCKELLY ####[facility] Hwenzpkqky647[address] [place], [place] [address]Dr. Amina Escobar BAND # 0.0 103/ul Normal 0.0-0.3 [facility] Comment on above: Performed By: #### C BCMAN ####[facility] Leilldjjzm5510[address] [place], [place] [address]Dr. Amina Escobar BAND % 0 % Normal 0-5 [facility] Comment on above: Performed By: #### C BCKELLY ####[facility] Ffpnpadcbe4167[address] [place], [place] [address]Dr. Amina Escobar BASOM # 0.00 103/ul Normal 0.00-0.10 [facility] Comment on above: Performed By: #### C BCMAN ####[facility] Olokderdkv36[address] [place], [place] [address]Dr. Amina Escobar BASOM % 0.0 % Critically low 0.2-2.0 [facility] Comment on above: Performed By: #### C BCMAN ####[facility] Sxtptmvkeb5[address] [place], [place] [address]Dr. Amina Escobar BLAST # Normal [facility] Comment on above: Performed By: #### C ALEX ####[facility] Gvcclgywrq43[address] [place] [id number]. Amina Escobar BLAST % Normal [facility] Comment on above: Performed By: #### C ALEX ####[facility] Wzqdwhdaif5322 [place] [id number]. Amina Escobar CORRECTED WBC Normal 4.0-11.0 [facility] Comment on above: Performed By: #### C ALEX ####[facility] Rckgohushx7598 [place] [id number]. Amina Escobar EOS # 0.34 103/ul Normal 0.00-0.70 [facility] Comment on above: Performed By: #### C ALEX ####[facility] Fzmxedspij20[address] [place] [address]Dr. Amina Escobar EOS% 4.0 % Normal 0.9-7.0 [facility] Comment on above: Performed By: #### C ALEX ####[facility] Mxjpnrqojy473[address] [place], [place] [address]Dr. Amina Escobar HCT 28.2 % Critically low 42.0-54.0 [facility] Comment on above: Performed By: #### C ALEX ####[facility] Rmdpxofpao8[address] [place], [place] [address]Dr. Amina Escobar HGB 8.8 g/dl Critically low 14.0-18.0 [facility] Comment on above: Performed By: #### C ALEX ####[facility] Hxvvuhzskp[address] [place] [phone]. Amina Escobar LYMPHM # 0.17 103/ul Critically low 1.20-3.80 [facility] Comment on above: Performed By: #### C ALEX ####[facility] Fqkavktyzh[address] [place], [place] [address]Dr. Amina Escobar LYMPHM% 2.0 % Critically low 20.5-60.0 The [facility] Comment on above: Performed By: #### C ALEX ####[facility] Ephzujaxjn[address] [place], [place] [address]Dr. Amina Escobar MCH 29.2 pg Normal 25.9-34.0 [facility] Comment on above: Performed By: #### C ALEX ####[facility] Slosbrempy8171 [place] [phone]. Amina Escobar MCHC 31.2 g/dl Normal 29.9-35.2 [facility] Comment on above: Performed By: #### C ALEX ####[facility] Yosaeyguwj4883 [place] [phone]. Amina Escobar MCV 93.7 fL Normal 80.0-94.0 [facility] Comment on above: Performed By: #### C ALEX ####[facility] Cyeyrdsjwe15[address] [place], [place] [address]Dr. Amina Escobar METAMYELOCYTE # Normal The [facility] Comment on above: Performed By: #### C ALEX ####[facility] Pkcgcvymis6596 [place] [phone]. Amina Escobar METAMYELOCYTE % Normal The [facility] Comment on above: Performed By: #### C ALEX ####[facility] Iellxspoaa1092 [place] [phone]. Amina Escobar MONOM# 0.26 103/ul Critically low 0.30-0.80 [facility] Comment on above: Performed By: #### C ALEX ####[facility] Rsgqlquvgn4863 [place] [phone]. Amina Escobar MONOM% 3.0 % Normal 1.7-12.0 [facility] Comment on above: Performed By: #### C ALEX ####[facility] Docirbnogz1098 [place] [phone]. Amina Escobar MPV 9.9 fL Normal 9.5-13.5 [facility] Comment on above: Performed By: #### C ALEX ####[facility] Kktuaqjlor3464 [place] [phone]. Amina Escobar MYELOCYTE # Normal The [facility] Comment on above: Performed By: #### C ALEX ####[facility] Funaultxss6565 [place] [phone]. Amina Escobar MYELOCYTE % Normal The [facility] Comment on above: Performed By: #### C ALEX ####[facility] [address]jvblptks[address] [place] [address]Dr. Amina Escobar NRBC Normal [facility] Comment on above: Performed By: #### C ALEX ####[facility] Dlfqzlajjr1689 [place] [phone]. Amina Escobar OVALOCYTES 2+ Normal The [facility] Comment on above: Performed By: #### C ALEX ####[facility] Ipmytwpbmn3452 [place] [phone]. Amina Escobar PLT 287 103/ul Normal 150-450 The [facility] Comment on above: Performed By: #### C ALEX ####[facility] Kuhwflfyel4634[address] [place], [place] [address]Dr. Amina Escobar RBC 3.01 106/ul Critically low 4.70-6.10 [facility] Comment on above: Performed By: #### C ALEX ####[facility] Nxxaopqngh32[address] [place], [place] [address]Dr. Amina Escobar RDW 18.6 % Critically high 11.0-15.0 [facility] Comment on above: Performed By: #### C ALEX ####[facility] Ndgftzqniw5576[address] [place], [place] [address]Dr. Amina Escobar SCHISTOCYTES SLIGHT Normal The [facility] Comment on above: Performed By: #### C ALEX ####[facility] Fcdhofuhgo7[address] [place], [place] [address]Dr. Amina Escobar SEG # 7.74 103/ul Critically high 1.40-6.50 The [facility] Comment on above: Performed By: #### C ALEX ####[facility] Ruxzeecvme0685[address] [place], [place] [address]Dr. Amina Escobar SEG % 91.0 % Critically high 43.0-75.0 [facility] Comment on above: Performed By: #### C ALEX ####[facility] Llmfmcyyll7084[address] [place], [place] [address]Dr. Amina Escobar TOXIC GRANULATION 1+ Normal The [facility] Comment on above: Performed By: #### C ALEX ####[facility] Qznhoqjkzk1216[address] [place], [place] [address]Dr. Kandielda Shawn WBC 8.5 103/ul Normal 4.0-11.0 [facility] Comment on above: Performed By: #### C ALEX ####[facility] Pycthqlvsa[address]45[address] [place], [place] [address]Dr. Amina Escobar ER URINE PROFILEon 2 Bilirubin Ql (U) Negative Normal NEGATIVE The [facility] Comment on above: Performed By: #### E RUR ####[facility] Idgzigpowd4623[address] [place], [place] [address]Dr. Amina Escobar Clarity (U) CLEAR Normal CLEAR The [facility] Comment on above: Performed By: #### E RUR ####[facility] Norygxnpsc3142[address] [place], [place] [address]Dr. Amina Escobar Color (U) LT. YELLOW Normal YELLOW [facility] Comment on above: Performed By: #### E RUR ####[facility] Ryjrxdbbpc0655[address] [place], [place] [address]Dr. Amina Escobar ERUAHD A micrscopic examina tion will be performed if indicated. Normal The [facility] Comment on above: Performed By: #### E RUR ####[facility] Xiggvkizsz30[address] [place], [place] [address]Dr. Amina Escobar Glucose Ql (U) Negative Normal NEGATIVE The [facility] Comment on above: Performed By: #### E RUR ####[facility] Ttlpoegmgb8143[address] [place], [place] [address]Dr. Amina Escobar Hemoglobin Ql (U) Negative Normal NEGATIVE The [facility] Comment on above: Performed By: #### E RUR ####[facility] Zpyotvozww2117[address] [place], [place] [address]Dr. Amina Escobar Ketones Ql (U) Negative Normal NEGATIVE The [facility] Comment on above: Performed By: #### E RUR ####[facility] Kdlzhimptt[address] [place], [place] [address]Dr. Amina Escobar LEUKOCYTES Negative Normal NEGATIVE The [facility] Comment on above: Performed By: #### E RUR ####[facility] Tf[address]obvctup[address] [place] [address]Dr. Amina Escobar Nitrite Ql (U) Negative Normal NEGATIVE The [facility] Comment on above: Performed By: #### E RUR ####[facility] Yndtpekphq[address]671 [place] [address]Dr. Amina Escobar pH (U) 5.5 [pH] Normal 5-9 The [facility] Comment on above: Performed By: #### E RUR ####[facility] Porxphryit9[address] [place], [place] [address]Dr. Amina Escobar SPEC GRAVITY 1.010 Normal 1.005-<=1. 025 [facility] Comment on above: Performed By: #### E RUR ####[facility] Kyihzmyprx[address] [place], [place] [address]Dr. Amina Escobar UA PROTEIN Negative Normal NEGATIVE/ TRACE The [facility] Comment on above: Performed By: #### E RUR ####[facility] Gijnnrzxqg5240[address] [place], [place] [address]Dr. Amina Escobar UR MICRO IND NOT INDICATED Normal The [facility] Comment on above: Performed By: #### E RUR ####[facility] Zrxhaspezi2180[address] [place], [place] [address]Dr. Amina Escobar Urobilinogen Qn (U) 0.2 {Mel'U}/dL Normal 0.2 - 1. 0 The [facility] Comment on above: Performed By: #### E RUR ####[facility] Vipsghbotq65[address] [place], [place] [address]Dr. Amina Escobar FERRITINon 05-09-2022 Ferritin [Mass/Vol] 132.0 ng/mL Normal 26.0-388.0 The [facility] Comment on above: Performed By: #### F ERR, FETIBC ####[facility] [address]qj[address] [place] [address]Dr. Amina Escobar IRON AND TIBCon 05-09-2022 % SATURATION 11.4 % Normal The [facility] Comment on above: Performed By: #### F ERR, FETIBC ####[facility] Xshmsaveun[address] [place] [address]Dr. Amina Escobar Iron [Mass/Vol] 33.0 ug/dL Critically low 65.0-175.0 [facility] Comment on above: Performed By: #### F ERR, FETIBC ####[facility] Qubcdginfm2835 [place] [address]Dr. Amina Escobar TIBC DIRECT 290.0 ug/dL Normal 250.0-450. 0 [facility] Comment on above: Performed By: #### F ERR, FETIBC ####[facility] Rblvffraho[address] [place], [place] [address]Dr. Amina Escobar PROF 14(COMP METB)on 022 Albumin [Mass/Vol] 3.1 g/dL Critically low 3.4-5.0 [facility] Comment on above: Performed By: #### C MP ####[facility] Uvpppnnujy4454[address] [place], [place] [address]Dr. Amina Escobar Albumin/Globulin [Mass ratio] 0.8 {ratio} Normal [facility] Comment on above: Performed By: #### C MP ####[facility] Fnricngiti9[address] [place], [place] [address]Dr. Amina Escobar ALP [Catalytic activity/Vol] 166 U/L Critically high 46-116 [facility] Comment on above: Performed By: #### C MP ####[facility] Ssbtytpssh[address] [place], [place] [address]Dr. Amina Escobar ALT [Catalytic activity/Vol] 22 U/L Normal 16-63 [facility] Comment on above: Performed By: #### C MP ####[facility] Puqvbwjwkd[address] [place], [place] [address]Dr. Amina Escobar Anion gap [Moles/Vol] 12.5 mmol/L Normal [facility] Comment on above: Performed By: #### C MP ####[facility] Ucjfggirej344[address] [place], [place] [address]Dr. Amina Escobar AST [Catalytic activity/Vol] 14 U/L Critically low 15-37 [facility] Comment on above: Performed By: #### C MP ####[facility] Oeuffnitjo[address] [place] [address]Dr. Amina Escobar Bilirubin [Mass/Vol] 0.7 mg/dL Normal 0.2-1.0 [facility] Comment on above: Performed By: #### C MP ####[facility] Upaifybdqp7644[address] [place], [place] [address]Dr. Amina Escobar Calcium [Mass/Vol] 8.5 mg/dL Normal 8.5-10.1 [facility] Comment on above: Performed By: #### C MP ####[facility] Tcfcaktfor[address] [place], [place] [address]Dr. Amina Escobar Chloride [Moles/Vol] 108 mmol/L Critically high 98-107 [facility] Comment on above: Performed By: #### C MP ####[facility] Pilziqssjm7[address] [place], [place] [address]Dr. Amina Escobar CO2 [Moles/Vol] 25.7 mmol/L Normal 21.0-32.0 [facility] Comment on above: Performed By: #### C MP ####[facility] Orhnhenfym0[address] [place], [place] [address]Dr. Amina Shawn Creatinine [Mass/Vol] 1.02 mg/dL Normal 0.70-1.30 [facility] Comment on above: Performed By: #### C MP ####[facility] Vibiyqutqh[address] [place], [place] [address]Dr. Amina Shawn EGFR-AF PITCAIRN ISLANDER >60 Normal >=60 The [facility] Comment on above: Performed By: #### C MP ####[facility] [address]qjwqhla3[address] [place], [place] [address]Dr. Kandielda Shawn EGFR-NON AF PITCAIRN ISLANDER >60 Normal >=60 The [facility] Comment on above: Performed By: #### C MP ####[facility] Lklvmmvocn103[address] [place], [place] [address]Dr. Amina Escobar Globulin (S) [Mass/Vol] 3.7 g/dL Normal [facility] Comment on above: Performed By: #### C MP ####[facility] Rbgbkemgqm5978 [place] [id number]. Amina Escobar Glucose [Mass/Vol] 97 mg/dL Normal 74-106 [facility] Comment on above: Performed By: #### C MP ####[facility] Eblaszcmdo07[address] [place] [phone]. Amina Escobar Potassium [Moles/Vol] 4.2 mmol/L Normal 3.5-5.1 [facility] Comment on above: Performed By: #### C MP ####[facility] [address]qonhsaaku66[address] [place] [address]Dr. Amina Escobar Protein [Mass/Vol] 6.8 g/dL Normal 6.4-8.2 [facility] Comment on above: Performed By: #### C MP ####[facility] Mnwibtaqcp[address] [place], [place] [address]Dr. Amina Shawn Sodium [Moles/Vol] 142 mmol/L Normal 136-145 [facility] Comment on above: Performed By: #### C MP ####[facility] Mdwkqevvii76[address] [place], [place] [address]Dr. Amina Shawn Urea nitrogen [Mass/Vol] 23.0 mg/dL Critically high 7.0-18.0 [facility] Comment on above: Performed By: #### C MP ####[facility] Vjlvptwcbs[address] [place] [address]Dr. Amina Shawn Urea nitrogen/Creatinine [Mass ratio] 22.5 mg/mg Normal [facility] Comment on above: Performed By: #### C MP ####[facility] Fqejoyxkzm3[address] [place] [phone]. Amina Escobar PROTIMEon 05-09-2022 INR Coag (PPP) [Relative time] 1.16 {INR} Normal [facility] Comment on above: Performed By: #### P TT, PT ####[facility] Myxiqqemch9168 [place] [phone] Escobar INR GUIDELINES SEE BELOW Normal [facility] Comment on above: Result Comment: LIMA RED INR: 2.0 - 3.0 CONDITIONS NOT LISTED BELOW 2.5 - 3.5 FOR PROSTHETIC HEART VALVE REPLACEMENT 2.5 - 3.5 RECURRENT THROMBOSIS Performed By: #### P TT, PT ####[facility] Kytwzagdhi[address] [place], [place] [address]Dr. Amina Escobar PT Coag (PPP) [Time] 12.4 s Critically high 9.0-11.6 [facility] Comment on above: Performed By: #### P TT, PT ####[facility] Nhlpvcwcyc[address] [place], [place] [address]Dr. Amina Escobar PTTon 05-09-2022 aPTT Coag (Bld) [Time] 27.7 s Normal 22.3-36.2 [facility] Comment on above: Performed By: #### P TT, PT ####[facility] Cuztxjscct[address] [place], [place] [address]Dr. Amina Escobar VIT B12 AND FOLATEon 022 Cobalamin (Vitamin B12) [Mass/Vol] 403.0 pg/mL Normal 193.0-986. 0 [facility] Comment on above: Performed By: #### B 12FOL ####[facility] L[address]zvplcvg7[address] [place], [place] [address]Dr. Amina Escobar FOLATE 10.00 ng/mL Normal 8.60-58.90 [facility] Comment on above: Performed By: #### B 12FOL ####[facility] Xtlkolkrac[address] [place], [place] [address]Dr. Amina Escobar NM GI BLEEDon 05-08-2022 NM GI BLEED Normal The [facility] CBC W MANUAL DIFFon 05-06-20 ANISOCYTOSIS 1+ Normal [facility] Comment on above: Performed By: #### C BCMAN ####[facility] Ohizucyxnt3398[address] [place], [place] [address]Dr. Amina Escobar ATYPICAL LYMPH # Normal [facility] Comment on above: Performed By: #### C BCMAN ####[facility] Pjsklnfrvi[address] [place], [place] [address]Dr. Yilan Escobar ATYPICAL LYMPH % Normal [facility] Comment on above: Performed By: #### C BCMAN ####[facility] [address]fmohhx[address] [place] [address]Dr. Yilan Escobar BAND # Normal 0.0-0.3 [facility] Comment on above: Performed By: #### C BCMAN ####[facility] Pczcefcbyx[address] [place] [address]Dr. Yilan Escobar BAND % Normal 0-5 [facility] Comment on above: Performed By: #### C BCMAN ####[facility] Idrlqkbapp6902 [place] [address]Dr. Yielda Escobar BASOM # 0.00 103/ul Normal 0.00-0.10 [facility] Comment on above: Performed By: #### C BCMAN ####[facility] Eddhtskymy5[address] [place] [address]Dr. Amina Escobar BASOM % 0.0 % Critically low 0.2-2.0 [facility] Comment on above: Performed By: #### C BCKELLY ####[facility] Sfrmjyelfi8[address] [place] [address]Dr. Yilan Escobar BLAST # Normal [facility] Comment on above: Performed By: #### C BCKELLY ####[facility] Jbfgrdmetl[address] [place] [address]Dr. Yilan Escobar BLAST % Normal [facility] Comment on above: Performed By: #### C BCKELLY ####[facility] R[address]jztddj4[address] [place], [place] [address]Dr. Yilan Escobar CORRECTED WBC Normal 4.0-11.0 [facility] Comment on above: Performed By: #### C BCKELLY ####[facility] [address]wqwdtaoqq4[address] [place] [address]Dr. Yilan Escobar EOS # 0.39 103/ul Normal 0.00-0.70 [facility] Comment on above: Performed By: #### C BCMAN ####[facility] [address]frv[address]kkj[address] [place], [place] [address]Dr. Yielda Escobar EOS% 5.0 % Normal 0.9-7.0 [facility] Comment on above: Performed By: #### C ALEX ####[facility] [place] Ncjcmojeat49[address] [place], [place] [address]M[place]. Amina Escobar HCT 26.2 % Critically low 42.0-54.0 [facility] Comment on above: Performed By: #### C ALEX ####[facility] [place] [address]ax[address] [place], [place] [address]Nq. Amina Escobar HGB 8.1 g/dl Critically low 14.0-18.0 [facility] Comment on above: Performed By: #### C ALEX ####[facility] [place] Iwepsnzopx1324 [place], [place] [address]Wf. Amina Escobar LYMPHM # 0.69 103/ul Critically low 1.20-3.80 [facility] Comment on above: Performed By: #### C ALEX ####[facility] [place] Xsmkwoviab2442 [place] [id number]. Amina Escobar LYMPHM% 9.0 % Critically low 20.5-60.0 [facility] Comment on above: Performed By: #### C ALEX ####[facility] [place] Jdimnpczjq7274 [place] [phone]. Amina Escobar MCH 29.1 pg Normal 25.9-34.0 [facility] Comment on above: Performed By: #### C ALEX ####[facility] [place] Mogbhmdmdx1071 [place] [phone]. Amina Escobar MCHC 30.9 g/dl Normal 29.9-35.2 [facility] [place] Comment on above: Performed By: #### C ALEX ####[facility] [place] Nloypmdhdw7280 [place], [place] [address]Pj. Amina Escobar MCV 94.2 fL Critically high 80.0-94.0 [facility] [place] Comment on above: Performed By: #### C ALEX ####[facility] [place] Zgianxkuns2094 [place], [place] [address]Bo. Amina Escobar METAMYELOCYTE # Normal [facility] [place] Comment on above: Performed By: #### C ALEX ####[facility] [place] Pthgdizqhq1921 [place] [phone]. Amina Escobar METAMYELOCYTE % Normal [facility] [place] Comment on above: Performed By: #### C ALEX ####[facility] [place] Enakjblsqh1693 [place] [phone]. Amina Escobar MONOM# 0.31 103/ul Normal 0.30-0.80 [facility] Comment on above: Performed By: #### C ALEX ####[facility] [place] Pwjgyckyqk1172 [place] [phone]. Amina Escobar MONOM% 4.0 % Normal 1.7-12.0 [facility] Comment on above: Performed By: #### C ALEX ####[facility] [place] Cdxalxugaf4725 [place] [address]Dr. Amina Escobar MPV 9.7 fL Normal 9.5-13.5 [facility] Comment on above: Performed By: #### C ALEX ####[facility] [place] Asqidpndva4324 [place] [address]Dr. Amina Escobar MYELOCYTE # Normal [facility] Comment on above: Performed By: #### C ALEX ####[facility] [place] Vieyauyzbg7604 [place] [address]Dr. Amina Escobar MYELOCYTE % Normal The [facility] [place] Comment on above: Performed By: #### C ALEX ####[facility] [place] Rycakjetrr9342 [place] [address]Dr. Amina Escobar NRBC Normal The [facility] [place] Comment on above: Performed By: #### C ALEX ####[facility] [place] Iyyhaymbrr3714 [place] [phone]. Amina Escobar PLT 236 103/ul Normal 150-450 [facility] [place] Comment on above: Performed By: #### C ALEX ####[facility] [place] Wvomeufukw7850 [place] [address]Dr. Amina Escobar RBC 2.78 106/ul Critically low 4.70-6.10 [facility] [place] Comment on above: Performed By: #### C ALEX ####[facility] [place] Jgcfzhjemj6044 [place] [phone]. Amina Escobar RDW 19.4 % Critically high 11.0-15.0 [facility] [place] Comment on above: Performed By: #### C BCMAN ####[facility] [place] Fpvmlechyp7155 [place] [phone]. Amina Escobar SEG # 6.31 103/ul Normal 1.40-6.50 [facility] [place] Comment on above: Performed By: #### C BCMAN ####[facility] [place] Ttnmnrdicy7084 [place] [address]Dr. Amina Escobar SEG % 82.0 % Critically high 43.0-75.0 [facility] [place] Comment on above: Performed By: #### C BCMAN ####[facility] [place] Zskpmtrgck5365 [place] [address]Dr. Amina Escobar WBC 7.7 103/ul Normal 4.0-11.0 [facility] [place] Comment on above: Performed By: #### C BCKELLY ####[facility] [place] [address]vhxlj[address] [place], [place] [address]Dr. Amina Escobar IRONon 05-06-2022 Iron [Mass/Vol] 27.0 ug/dL Critically low 65.0-175.0 [facility] [place] Comment on above: Performed By: #### I PHIL ####[facility] [place] Mkhaoqbhzl8895 [place] [address]Dr. Amina Escobar CBC AUTO DIFFon 04-29-2022 BASO # 0.0 103/ul Normal 0.0-0.1 [facility] [place] Comment on above: Performed By: #### C BC ####[facility] [place] Zmaqrdmyfu[address] [place], [place] [address]Dr. Amina Escobar Basophils/100 WBC (Bld) 0.5 % Normal 0.2-2.0 [facility] [place] Comment on above: Performed By: #### C BC ####[facility] [place] Msvmbvkpzm1890 [place] [address]Dr. Amina Escobar EO # 0.3 103/ul Normal 0.0-0.7 [facility] [place] Comment on above: Performed By: #### C BC ####[facility] [place] Bfsuxtfmiu7478 [place] [phone]. Amina Escobar Eosinophils/100 WBC (Bld) 3.6 % Normal 0.9-7.0 [facility] [place] Comment on above: Performed By: #### C BC ####[facility] [place] Gwqopfbzgz7976 [place] [address]Dr. Amina Escobar Erythrocyte distribution width (RBC) [Ratio] 20.5 % Critically high 11.0-15.0 [facility] [place] Comment on above: Performed By: #### C BC ####[facility] [place] Wwojoettpe[address] [place], [place] [address]Dr. Amina Escobar Hematocrit (Bld) [Volume fraction] 30.0 % Critically low 42.0-54.0 [facility] [place] Comment on above: Performed By: #### C BC ####[facility] [place] Cemasbmrpd7[address] [place], [place] [address]Dr. Amina Escobar Hemoglobin (Bld) [Mass/Vol] 9.3 g/dL Critically low 14.0-18.0 [facility] [place] Comment on above: Performed By: #### C BC ####[facility] [place] Ufxjerhyet[address] [place], [place] [address]Dr. Amina Escobar IG # 0.04 10e3/ul Critically high 0.00-0.03 [facility] [place] Comment on above: Performed By: #### C BC ####[facility] [place] Dogxlyyfhg655[address] [place], [place] [address]Dr. Amina Escobar IG % 0.5 % Normal 0.0-0.5 [facility] [place] Comment on above: Performed By: #### C BC ####[facility] [place] Tanygepgja85[address] [place], [place] [address]Dr. Amina Escobar LYMPH # 0.6 103/ul Critically low 1.2-3.8 The [facility] [place] Comment on above: Performed By: #### C BC ####[facility] [place] Guyvazswjp5427[address] [place], [place] [address]Dr. Amina Escobar Lymphocytes/100 WBC (Bld) 7.6 % Critically low 20.5-60.0 [facility] [place] Comment on above: Performed By: #### C BC ####[facility] [place] Piqkoafzvw232[address] [place] [address]Dr. Amina Escobar MANUAL DIFF REQ NO Normal [facility] [place] Comment on above: Performed By: #### C BC ####[facility] [place] Djmepljplq8222 [place] [phone]. Amina Escobar MCH (RBC) [Entitic mass] 29.0 pg Normal 25.9-34.0 [facility] [place] Comment on above: Performed By: #### C BC ####[facility] [place] Psyukgunfy[address] [place], [place] [address]Dr. Amina Escobar MCHC (RBC) [Mass/Vol] 31.0 g/dL Normal 29.9-35.2 [facility] [place] Comment on above: Performed By: #### C BC ####[facility] [place] [address]cl[address]bbk[address] [place], [place] [address]Dr. Kandielda Escobar MCV (RBC) [Entitic vol] 93.5 fL Normal 80.0-94.0 [facility] Comment on above: Performed By: #### C BC ####[facility] [place] Dj[address]ekgafhp[address] [place], [place] [address]Dr. Amina Escobar MONO # 0.7 103/ul Normal 0.3-0.8 The [facility] [place] Comment on above: Performed By: #### C BC ####[facility] [place] I[address]xitvkfvk[address] [place], [place] [address]Dr. Kandielda Escobar Monocytes/100 WBC (Bld) 7.9 % Normal 1.7-12.0 [facility] [place] Comment on above: Performed By: #### C BC ####[facility] [place] Uopsdmxbnw[address] [place], [place] [address]Dr. Kandielda Escobar NEUT # 6.8 103/ul Critically high 1.4-6.5 The [facility] [place] Comment on above: Performed By: #### C BC ####[facility] [place] G[address]gomeyju[address] [place], [place] [address]Dr. Amina Escobar Neutrophils/100 WBC (Bld) 79.9 % Critically high 43.0-75.0 [facility] [place] Comment on above: Performed By: #### C BC ####[facility] [place] Uzhorxlxgo1234 [place] [phone]. Amina Escobar Platelet mean volume (Bld) [Entitic vol] 10.4 fL Normal 9.5-13.5 [facility] Comment on above: Performed By: #### C BC ####[facility] [place] Kskznmmumo1359 [place] [address]Dr. Amina Escobar PLT 202 103/ul Normal 150-450 [facility] [place] Comment on above: Performed By: #### C BC ####[facility] [place] Vpabsldqbz6816 [place] [address]Dr. Amina Escobar RBC 3.21 106/ul Critically low 4.70-6.10 [facility] Comment on above: Performed By: #### C BC ####[facility] [place] Clpycjesgl8249 [place] [address]Dr. Amina Escobar WBC 8.5 103/ul Normal 4.0-11.0 [facility] Comment on above: Performed By: #### C BC ####[facility] [place] Jcpuzikwee[address] [place], [place] [address]Dr. Amina Escobar PROF CHEM 8 (BAS METB)on Anion gap [Moles/Vol] 9.1 mmol/L Normal [facility] Comment on above: Performed By: #### B MP ####[facility] [place] Qckefkbhuw8008 [place] [address]Dr. Amina Escobar Calcium [Mass/Vol] 8.0 mg/dL Critically low 8.5-10.1 [facility] Comment on above: Performed By: #### B MP ####[facility] [place] Ttlgwppvle9539 [place] [address]Dr. Amina Escobar Chloride [Moles/Vol] 113 mmol/L Critically high 98-107 [facility] Comment on above: Performed By: #### B MP ####[facility] [place] [address]uzxhrsd66[address] [place], [place] [address]Dr. Amina Escobar CO2 [Moles/Vol] 26.1 mmol/L Normal 21.0-32.0 [facility] Comment on above: Performed By: #### B MP ####[facility] [place] Jxspmawppz9545 [place] [phone]. Amina Escobar Creatinine [Mass/Vol] 1.33 mg/dL Critically high 0.70-1.30 [facility] [place] Comment on above: Performed By: #### B MP ####[facility] [place] Bshotqldvy4573 [place] [address]Dr. Amina Escobar EGFR-AF PITCAIRN ISLANDER >60 Normal >=60 The [facility] [place] Comment on above: Performed By: #### B MP ####[facility] [place] Aeycgjfnul4200 [place] [address]Dr. Amina Escobar EGFR-NON AF [place] ISLANDER 51 mL/min/1.73m2 Critically low >=60 The [facility] [place] Comment on above: Performed By: #### B MP ####[facility] [place] Aubckwyxez[address] [place], [place] [address]Dr. Kandielda Shawn Glucose [Mass/Vol] 90 mg/dL Normal 74-106 [facility] [place] Comment on above: Performed By: #### B MP ####[facility] [place] Okxcpvczdz637[address] [place], [place] [address]Dr. Amina Escobar Potassium [Moles/Vol] 4.2 mmol/L Normal 3.5-5.1 [facility] [place] Comment on above: Performed By: #### B MP ####[facility] [place] Ggdcmuvety01[address] [place], [place] [address]Dr. Kandielda Shawn Sodium [Moles/Vol] 144 mmol/L Normal 136-145 [facility] [place] Comment on above: Performed By: #### B MP ####[facility] [place] Ebxiowrkpf[address] [place], [place] [address]Dr. Amina Escobar Urea nitrogen [Mass/Vol] 37.0 mg/dL Critically high 7.0-18.0 [facility] [place] Comment on above: Performed By: #### B MP ####[facility] [place] Jzdrercoxh[address] [place], [place] [address]Dr. Amina Escobar Urea nitrogen/Creatinine [Mass ratio] 27.8 mg/mg Normal [facility] [place] Comment on above: Performed By: #### B MP ####[facility] [place] Bstebsaykp2501 [place] [address]Dr. Kandielda Shawn PRBC LEUKOREDUCEDon 04-28-20 PRBC LEUKOREDUCED Normal [facility] Comment on above: Performed By: #### P RBC ####[facility] [place] Fuqypwazdo9770 [place] [address]Dr. Kandielda Escobar PRBC LEUKOREDUCED Cross Match Result Compatible Unit Blood Type O Neg Unit Number [id number] Status Information Transfused Product ID Red Blood Cells Product Code [id number] Normal [facility] Comment on above: Performed By: #### P RBC ####[facility] [place] Nvybictegq3216[address] [place], [place] [address]Dr. Amina Escobar CBC AUTO DIFFon 04-27-2022 BASO # 0.0 103/ul Normal 0.0-0.1 [facility] Comment on above: Performed By: #### C BC ####[facility] [place] Tofxlxkhsy[address] [place], [place] [address]Dr. Amina Escobar Basophils/100 WBC (Bld) 0.4 % Normal 0.2-2.0 [facility] Comment on above: Performed By: #### C BC ####[facility] [place] Eggckojtrx6[address] [place], [place] [address]Dr. Amina Escobar EO # 0.3 103/ul Normal 0.0-0.7 [facility] Comment on above: Performed By: #### C BC ####[facility] [place] X[address]ixyxzpxz[address] [place], [place] [address]Dr. Amina Escobar Eosinophils/100 WBC (Bld) 3.1 % Normal 0.9-7.0 The [facility] [place] Comment on above: Performed By: #### C BC ####[facility] [place] Xyhsvdyxly6513[address] [place], [place] [address]Dr. Amina Escobar Erythrocyte distribution width (RBC) [Ratio] 20.3 % Critically high 11.0-15.0 [facility] Comment on above: Performed By: #### C BC ####[facility] [place] Dkeycviltk8525[address] [place], [place] [address]Dr. Amina Escobar Hematocrit (Bld) [Volume fraction] 26.5 % Critically low 42.0-54.0 [facility] Comment on above: Performed By: #### C BC ####[facility] [place] Rgztptzmhr6932 [place] [address]DrMemo Escobar Hemoglobin (Bld) [Mass/Vol] 8.4 g/dL Critically low 14.0-18.0 [facility] Comment on above: Performed By: #### C BC ####[facility] [place] Gdmmpnbrzh11[address] [place], [place] [address]DrMemo Escobar IG # 0.05 10e3/ul Critically high 0.00-0.03 [facility] Comment on above: Performed By: #### C BC ####[facility] [place] Qvchqcjpce8037[address] [place], [place] [address]DrMemo Escobar IG % 0.6 % Critically high 0.0-0.5 [facility] Comment on above: Performed By: #### C BC ####[facility] [place] Xbeqqmyknx1515[address] [place], [place] [address]DrMemo Escobar LYMPH # 0.8 103/ul Critically low 1.2-3.8 [facility] Comment on above: Performed By: #### C BC ####[facility] [place] Nmbgzzbvmc18[address] [place], [place] [address]DrMemo Escobar Lymphocytes/100 WBC (Bld) 9.6 % Critically low 20.5-60.0 [facility] Comment on above: Performed By: #### C BC ####[facility] [place] Akdjebucig9[address] [place], [place] [address]DrMemo Escobar MANUAL DIFF REQ NO Normal [facility] [place] Comment on above: Performed By: #### C BC ####[facility] [place] Moqhonizeu157[address] [place], [place] [address]DrMemo Escobar MCH (RBC) [Entitic mass] 28.8 pg Normal 25.9-34.0 [facility] Comment on above: Performed By: #### C BC ####[facility] [place] Okdkwrgvmq7328[address] [place], [place] [address]DrMemo Escobar MCHC (RBC) [Mass/Vol] 31.7 g/dL Normal 29.9-35.2 [facility] Comment on above: Performed By: #### C BC ####[facility] [place] Gseqrlmdnt4538 [place] [address]DrMemo Escobar MCV (RBC) [Entitic vol] 90.8 fL Normal 80.0-94.0 [facility] Comment on above: Performed By: #### C BC ####[facility] [place] Kwqnoaqdcx9104 [place] [address]DrMemo Escobar MONO # 0.8 103/ul Normal 0.3-0.8 [facility] [place] Comment on above: Performed By: #### C BC ####[facility] [place] Hjvertlebv1420[address] [place], [place] [address]DrMemo Escobar Monocytes/100 WBC (Bld) 9.4 % Normal 1.7-12.0 [facility] Comment on above: Performed By: #### C BC ####[facility] [place] Hyekwauqan12[address] [place], [place] [address]DrMemo Escobar NEUT # 6.4 103/ul Normal 1.4-6.5 [facility] [place] Comment on above: Performed By: #### C BC ####[facility] [place] J[address]vdglvfv8[address] [place], [place] [address]DrMemo Escobar Neutrophils/100 WBC (Bld) 76.9 % Critically high 43.0-75.0 [facility] [place] Comment on above: Performed By: #### C BC ####[facility] [place] Nrborwpjsn[address] [place], [place] [address]DrMemo Escobar Platelet mean volume (Bld) [Entitic vol] 10.5 fL Normal 9.5-13.5 [facility] [place] Comment on above: Performed By: #### C BC ####[facility] [place] Vxveznnxab22[address] [place], [place] [address]DrMemo Escobar PLT 160 103/ul Normal 150-450 [facility] [place] Comment on above: Performed By: #### C BC ####[facility] [place] Zgaahiivjp05[address] [place], [place] [address]DrMemo Escobar RBC 2.92 106/ul Critically low 4.70-6.10 [facility] Comment on above: Performed By: #### C BC ####[facility] [place] Zwfjwpcynn3144 [place] [address]Dr. Amina Escobar WBC 8.3 103/ul Normal 4.0-11.0 [facility] Comment on above: Performed By: #### C BC ####[facility] [place] Chpfxezbxf[address] [place], [place] [address]Dr. Amina Escobar GLYCOHEMOGLOBIN A1Con 2021 ADA RECOMMENDATION SEE BELOW Normal [facility] Comment on above: Result Comment: ADA RECOMMENDED LIMIT 4.0 - 6.0 ADA THERAPEUTIC TARGET < 7.0 ACTION SUGGESTED > 7.0 Performed By: #### A 1C ####[facility] [place] T[address]qgfqntwp[address] [place], [place] [address]Dr. Kandielda Escobar Glucose [Mass/Vol] 111 mg/dL Normal [facility] Comment on above: Performed By: #### A 1C ####[facility] [place] Uiaehoeaco7377[address] [place], [place] [address]Dr. Amina Escobar HbA1c (Bld) [Mass fraction] 5.5 % Normal 4.5-6.2 [facility] Comment on above: Performed By: #### A 1C ####[facility] [place] I[address]qknjphb[address] [place], [place] [address]Dr. Amina Shawn POINT OF CARE GLUCOSEon 04-11 Glucose [Mass/Vol] 195 mg/dL Critically high 74-106 T [facility] Comment on above: Performed By: #### P OCGLUC ####[facility] [place] I[address]csydhkpw[address] [place], [place] [address]Dr. Kandielda Escobar PROF CHEM 8 (BAS METB)on Anion gap [Moles/Vol] 10.0 mmol/L Normal [facility] Comment on above: Performed By: #### B MP ####[facility] [place] Xpismzptkq4532[address] [place], [place] [address]Dr. Amina Escobar Calcium [Mass/Vol] 7.9 mg/dL Critically low 8.5-10.1 [facility] Comment on above: Performed By: #### B MP ####[facility] [place] Tgqqnorsre2064 [place] [phone]. Amina Escobar Chloride [Moles/Vol] 116 mmol/L Critically high 98-107 [facility] [place] Comment on above: Performed By: #### B MP ####[facility] [place] Hcymgjnffo4767 [place] [address]Dr. Amina Escobar CO2 [Moles/Vol] 23.1 mmol/L Normal 21.0-32.0 [facility] [place] Comment on above: Performed By: #### B MP ####[facility] [place] Rgpgusiabu8251 [place] [address]Dr. Amina Escobar Creatinine [Mass/Vol] 1.18 mg/dL Normal 0.70-1.30 [facility] [place] Comment on above: Performed By: #### B MP ####[facility] [place] Wiedqoisow84[address] [place], [place] [address]Dr. Kandielda Shawn EGFR-AF [place]CAIR[place] ISLANDER >60 Normal >=60 The [facility] [place] Comment on above: Performed By: #### B MP ####[facility] [place] [address]atewjs[address] [place], [place] [address]Dr. Kandielda Shawn EGFR-NON AF [place] ISLANDER 59 mL/min/1.73m2 Critically low >=60 The [facility] [place] Comment on above: Performed By: #### B MP ####[facility] [place] Levizsapph[address] [place], [place] [address]Dr. Kandielda Escobar Glucose [Mass/Vol] 100 mg/dL Normal 74-106 [facility] [place] Comment on above: Performed By: #### B MP ####[facility] [place] Uonoffidsj[address] [place], [place] [address]Dr. Amina Escobar Potassium [Moles/Vol] 4.1 mmol/L Normal 3.5-5.1 The [facility] Comment on above: Performed By: #### B MP ####[facility] [address]ef[address]mb[address] [place], [place] [address]Dr. Kandielda Escobar Sodium [Moles/Vol] 145 mmol/L Normal 136-145 The [facility] [place] Comment on above: Performed By: #### B MP ####[facility] [place] Pdjtvmrbdg9018 [place] [id number]. Amina Shawn Urea nitrogen [Mass/Vol] 40.0 mg/dL Critically high 7.0-18.0 The [facility] [place] Comment on above: Performed By: #### B MP ####[facility] [place] Bkwvtjcqjd[address] [place], [place] [address]Dr. Amina Shawn Urea nitrogen/Creatinine [Mass ratio] 33.9 mg/mg Normal The [facility] [place] Comment on above: Performed By: #### B MP ####[facility] [place] Zbmsiafirf54[address] [place], [place] [address]Dr. Kandielda Escobar CBC AUTO DIFFon 04-26-2022 BASO # 0.1 103/ul Normal 0.0-0.1 The [facility] [place] Comment on above: Performed By: #### C BC ####[facility] [place] Vvkbcxbsxe350[address] [place], [place] [address]Dr. Amina Escobar Basophils/100 WBC (Bld) 0.6 % Normal 0.2-2.0 The [facility] [place] Comment on above: Performed By: #### C BC ####[facility] [place] Wwoxjrnixb[address] [place], [place] [address]Dr. Amina Escobar EO # 0.2 103/ul Normal 0.0-0.7 The [facility] [place] Comment on above: Performed By: #### C BC ####[facility] [place] Ypebabwfrk89[address] [place], [place] [address]Dr. Amina Escobar Eosinophils/100 WBC (Bld) 2.1 % Normal 0.9-7.0 The [facility] [place] Comment on above: Performed By: #### C BC ####[facility] Kwgxkkfoin7[address] [place], [place] [address]Dr. Amina Escobar Erythrocyte distribution width (RBC) [Ratio] 18.6 % Critically high 11.0-15.0 The [facility] [place] Comment on above: Performed By: #### C BC ####[facility] [place] Fyknpkhira034[address] [place], [place] [address]Dr. Amina Escobar Hematocrit (Bld) [Volume fraction] 23.6 % Critically low 42.0-54.0 The [facility] [place] Comment on above: Performed By: #### C BC ####[facility] [place] Kjhxuvnjtg2575 [place] [phone]. Amina Escobar Hemoglobin (Bld) [Mass/Vol] 7.6 g/dL Critically low 14.0-18.0 [facility] Comment on above: Performed By: #### C BC ####[facility] [place] Tsmpxmaaax[address] [place] [address]Dr. Amina Escobar IG # 0.04 10e3/ul Critically high 0.00-0.03 [facility] Comment on above: Performed By: #### C BC ####[facility] [place] Dayccuhbxo6[address] [place], [place] [address]Dr. Amina Escobar IG % 0.5 % Normal 0.0-0.5 [facility] Comment on above: Performed By: #### C BC ####[facility] [place] Ffgjccmczr7936[address] [place], [place] [address]Dr. Amina Escobar LYMPH # 0.8 103/ul Critically low 1.2-3.8 [facility] Comment on above: Performed By: #### C BC ####[facility] [place] Nvasqfrran[address] [place] [address]Dr. Amina Escobar Lymphocytes/100 WBC (Bld) 9.2 % Critically low 20.5-60.0 [facility] Comment on above: Performed By: #### C BC ####[facility] Vgnowptrgo6[address] [place], [place] [address]Dr. Amina Escobar MANUAL DIFF REQ NO Normal The [facility] Comment on above: Performed By: #### C BC ####[facility] Dorokshfnr1727[address] [place], [place] [address]Dr. Amina Escobar MCH (RBC) [Entitic mass] 29.1 pg Normal 25.9-34.0 The [facility] Comment on above: Performed By: #### C BC ####[facility] [place] Fjforceedy[address] [place], [place] [address]Dr. Amina Escobar MCHC (RBC) [Mass/Vol] 32.2 g/dL Normal 29.9-35.2 The [facility] Comment on above: Performed By: #### C BC ####[facility] Umxoqmsquf70[address] [place] [phone]. Amina Escobar MCV (RBC) [Entitic vol] 90.4 fL Normal 80.0-94.0 [facility] Comment on above: Performed By: #### C BC ####[facility] [place] Zuqwvuhsus7726 [place] [phone]. Amina Escobar MONO # 0.8 103/ul Normal 0.3-0.8 The [facility] Comment on above: Performed By: #### C BC ####[facility] Bmtulbqrsb1212 [place] [phone]. Amina Escobar Monocytes/100 WBC (Bld) 9.0 % Normal 1.7-12.0 [facility] Comment on above: Performed By: #### C BC ####[facility] Mubsrleheo18[address] [place], [place] [address]Dr. Amina Escobar NEUT # 6.7 103/ul Critically high 1.4-6.5 The [facility] Comment on above: Performed By: #### C BC ####[facility] Xxhcwccjli[address] [place], [place] [address]Dr. Amina Escobar Neutrophils/100 WBC (Bld) 78.6 % Critically high 43.0-75.0 The [facility] Comment on above: Performed By: #### C BC ####[facility] Plqolrpcby[address] [place], [place] [address]Dr. Amina Escobar Platelet mean volume (Bld) [Entitic vol] 10.4 fL Normal 9.5-13.5 The [facility] Comment on above: Performed By: #### C BC ####[facility] Wgzojvhfmw9633 [place] [phone]. Amina Escobar PLT 167 103/ul Normal 150-450 The [facility] Comment on above: Performed By: #### C BC ####[facility] Xmtiiqhppx5546 [place] [phone]. Amina Shawn RBC 2.61 106/ul Critically low 4.70-6.10 The [facility] Comment on above: Performed By: #### C BC ####[facility] [place] Oibigpbjpk5[address] [place] [address]Dr. Amina Escobar WBC 8.5 103/ul Normal 4.0-11.0 [facility] Comment on above: Performed By: #### C BC ####[facility] Gmwttpuvzx38[address] [place] [address]Dr. Amina Shawn HEMOGLOBIN AND HEMATOCRITon 04-26-2022 Hematocrit (Bld) [Volume fraction] 28.9 % Critically low 42.0-54.0 [facility] Comment on above: Performed By: #### H GBHCT ####[facility] Qqspfksrbh17[address] [place] [address]Dr. Amina Escobar Hemoglobin (Bld) [Mass/Vol] 9.1 g/dL Critically low 14.0-18.0 [facility] Comment on above: Performed By: #### H GBHCT ####[facility] Pkkbzfnkpd[address] [place], [place] [address]Dr. Amina Escobar POINT OF CARE GLUCOSEon 04-11 Glucose [Mass/Vol] 156 mg/dL Critically high 74-106 [facility] Comment on above: Performed By: #### P OCGLUC ####[facility] Ivlvrjevjn4[address] [place], [place] [address]Dr. Amina Escobar Glucose [Mass/Vol] 182 mg/dL Critically high -106 [facility] Comment on above: Performed By: #### P OCGLUC ####[facility] Gveqibmxtw524[address] [place], [place] [address]Dr. Amina Escobar Glucose [Mass/Vol] 185 mg/dL Critically high -106 [facility] Comment on above: Performed By: #### P OCGLUC ####[facility] Rrvnegshwh8532[address] [place], [place] [address]Dr. Kandielda Escobar PROF CHEM 8 (BAS METB)on Anion gap [Moles/Vol] 9.4 mmol/L Normal [facility] Comment on above: Performed By: #### B MP ####[facility] Tnbddcomvj9592[address] [place], [place] [address]Dr. Amina Shawn Calcium [Mass/Vol] 7.8 mg/dL Critically low 8.5-10.1 Th e [facility] Comment on above: Performed By: #### B MP ####[facility] K[address]okpaxuh[address] [place] [address]Dr. Kandielda Shawn Chloride [Moles/Vol] 113 mmol/L Critically high 98-107 The [facility] Comment on above: Performed By: #### B MP ####[facility] Hfysdlqrjv96[address] [place], [place] [address]Dr. Kandielda Shawn CO2 [Moles/Vol] 24.8 mmol/L Normal 21.0-32.0 The [facility] Comment on above: Performed By: #### B MP ####[facility] Gr[address]bgsjvc[address] [place], [place] [address]Dr. Amina Escobar Creatinine [Mass/Vol] 1.21 mg/dL Normal 0.70-1.30 [facility] Comment on above: Performed By: #### B MP ####[facility] Olhpklpnak0[address] [place], [place] [address]Dr. Kandielda Shawn EGFR-AF PITCAIRN ISLANDER >60 Normal >=60 The [facility] Comment on above: Performed By: #### B MP ####[facility] Hhyseayymd[address] [place], [place] [address]Dr. Kandielda Shawn EGFR-NON AF [place] ISLANDER 57 mL/min/1.73m2 Critically low >=60 The [facility] Comment on above: Performed By: #### B MP ####[facility] Fpjrpccimk22[address] [place], [place] [address]Dr. Amina Escobar Glucose [Mass/Vol] 95 mg/dL Normal 74-106 The [facility] Comment on above: Performed By: #### B MP ####[facility] Glyraarpkj8[address] [place], [place] [address]Dr. Amina Escobar Potassium [Moles/Vol] 4.2 mmol/L Normal 3.5-5.1 The [facility] Comment on above: Performed By: #### B MP ####[facility] Gaprhwhsrb6723[address] [place], [place] [address]Dr. Amina Escobar Sodium [Moles/Vol] 143 mmol/L Normal 136-145 The [facility] Comment on above: Performed By: #### B MP ####[facility] Rrloaqqhbu9[address] [place], [place] [address]Dr. Amina Shawn Urea nitrogen [Mass/Vol] 44.0 mg/dL Critically high 7.0-18.0 The [facility] Comment on above: Performed By: #### B MP ####[facility] Zlsgqcaycx39[address] [place], [place] [address]Dr. Amina Shawn Urea nitrogen/Creatinine [Mass ratio] 36.4 mg/mg Normal The [facility] Comment on above: Performed By: #### B MP ####[facility] Nuzrwcmxon[address] [place], [place] [address]Dr. Amina Shawn CBC AUTO DIFFon 04-25-2022 Basophils/100 WBC (Bld) 0.5 % Normal 0.2-2.0 The [facility] Comment on above: Performed By: #### C BC ####[facility] Iwfmutrtab05[address] [place], [place] [address]Dr. Kandielda Escobar EO # 0.1 103/ul Normal 0.0-0.7 The [facility] Comment on above: Performed By: #### C BC ####[facility] Kscwskxjsl9[address] [place], [place] [address]Dr. Kandielda Escobar Eosinophils/100 WBC (Bld) 1.1 % Normal 0.9-7.0 The [facility] Comment on above: Performed By: #### C BC ####[facility] Rtpwqojyvk13[address] [place], [place] [address]Dr. Kandielda Escobar Erythrocyte distribution width (RBC) [Ratio] 18.4 % Critically high 11.0-15.0 The [facility] Comment on above: Performed By: #### C BC ####[facility] Mlsdzwxfxw8965[address] [place], [place] [address]Dr. Amina Escobar Hematocrit (Bld) [Volume fraction] 23.6 % Critically low 42.0-54.0 The [facility] Comment on above: Performed By: #### C BC ####[facility] Clypohblmj0542 [place] [phone]. Amina Escobar Hemoglobin (Bld) [Mass/Vol] 7.6 g/dL Critically low 14.0-18.0 The [facility] Comment on above: Performed By: #### C BC ####[facility] Ilgwwjcriy50[address] [place] [phone]. Amina Escobar IG # 0.03 10e3/ul Normal 0.00-0.03 The [facility] Comment on above: Performed By: #### C BC ####[facility] Nqsttazijz4921 [place] [phone]. Amina Escobar IG % 0.4 % Normal 0.0-0.5 The [facility] Comment on above: Performed By: #### C BC ####[facility] Mmnpfpmwzc2342 [place] [phone]. Amina Escobar LYMPH # 0.8 103/ul Critically low 1.2-3.8 The [facility] Comment on above: Performed By: #### C BC ####[facility] Kauhaaowzq5[address] [place] [phone]. Amina Escobar Lymphocytes/100 WBC (Bld) 9.8 % Critically low 20.5-60.0 The [facility] Comment on above: Performed By: #### C BC ####[facility] Nxgrhkhpub4072 [place] [phone]. Amina Escobar MCH (RBC) [Entitic mass] 28.7 pg Normal 25.9-34.0 The [facility] Comment on above: Performed By: #### C BC ####[facility] Qmlklomhqr3813 [place] [phone]. Amina Escobar MCHC (RBC) [Mass/Vol] 32.2 g/dL Normal 29.9-35.2 The [facility] Comment on above: Performed By: #### C BC ####[facility] Pxtxhibbgb1426 [place] [phone]. Amina Escobar MCV (RBC) [Entitic vol] 89.1 fL Normal 80.0-94.0 The [facility] Comment on above: Performed By: #### C BC ####[facility] Rjvahqiggw2390 [place] [phone]. Amina Escobar MONO # 0.7 103/ul Normal 0.3-0.8 The [facility] Comment on above: Performed By: #### C BC ####[facility] Xsjoohfvwy8818 [place] [phone]. Amina Escobar Monocytes/100 WBC (Bld) 8.1 % Normal 1.7-12.0 The [facility] Comment on above: Performed By: #### C BC ####[facility] Gbiinouvit2532 [place] [phone]. Amina Escobar NEUT # 6.7 103/ul Critically high 1.4-6.5 The [facility] Comment on above: Performed By: #### C BC ####[facility] Ct[address]qbqmz[address] [place], [place] [address]Dr. Amina Escobar Neutrophils/100 WBC (Bld) 80.1 % Critically high 43.0-75.0 The [facility] Comment on above: Performed By: #### C BC ####[facility] Cyklvmwtwk[address] [place] [address]Dr. Amina Escobar Platelet mean volume (Bld) [Entitic vol] 10.6 fL Normal 9.5-13.5 The [facility] Comment on above: Performed By: #### C BC ####[facility] Xnoclafylm0912 [place] [phone]. Amina Escobar PLT 183 103/ul Normal 150-450 The [facility] Comment on above: Performed By: #### C BC ####[facility] Gzbwgdjpws[address] [place], [place] [address]Dr. Amina Escobar RBC 2.65 106/ul Critically low 4.70-6.10 The [facility] Comment on above: Performed By: #### C BC ####[facility] Jjmuoeuhvi9267 [place] [phone]. Amina Escobar WBC 8.4 103/ul Normal 4.0-11.0 The [facility] Comment on above: Performed By: #### C BC ####[facility] Wrwvkyvgek15[address] [place] [address]Dr. Amina Escobar CBC W MANUAL DIFFon 04-25-20 22 ATYPICAL LYMPH # Normal The [facility] Comment on above: Performed By: #### C ALEX ####[facility] Lyhhpcoqqv[address] [place] [address]Dr. Amina Escobar ATYPICAL LYMPH % Normal The [facility] Comment on above: Performed By: #### C ALEX ####[facility] Uomdkmsusa[address] [place], [place] [address]Dr. Amina Escobar BAND # 0.2 103/ul Normal 0.0-0.3 The [facility] Comment on above: Performed By: #### C ALEX ####[facility] Gofsmfqwsv[address] [place], [place] [address]Dr. Amina Escobar BAND % 2 % Normal 0-5 [facility] Comment on above: Performed By: #### C ALEX ####[facility] Rakdmqmiun7[address] [place], [place] [address]Dr. Amina Escobar BASOM # 0.00 103/ul Normal 0.00-0.10 The [facility] Comment on above: Performed By: #### C ALEX ####[facility] Pixnqgmjco[address] [place], [place] [address]Dr. Amina Escobar BASOM % 0.0 % Critically low 0.2-2.0 The [facility] Comment on above: Performed By: #### C ALEX ####[facility] Eqajwrivdw5535[address] [place], [place] [address]Dr. Amina Escobar BLAST # Normal The [facility] Comment on above: Performed By: #### C ALEX ####[facility] Pfhfuauqph45[address] [place], [place] [address]Dr. Amina Escobar BLAST % Normal The [facility] Comment on above: Performed By: #### C ALEX ####[facility] Htpqjvfmxu97[address] [place], [place] [address]Dr. Amina Shawn CORRECTED WBC Normal 4.0-11.0 The [facility] Comment on above: Performed By: #### C ALEX ####[facility] Icghnfdlkk1294 [place], [place] [address]Ea. Amina Escobar EOS # 0.23 103/ul Normal 0.00-0.70 The [facility] Comment on above: Performed By: #### C ALEX ####[facility] Jqmtyalvtv3998 [place] [phone]. Amina Escobar EOS% 3.0 % Normal 0.9-7.0 The [facility] Comment on above: Performed By: #### C ALEX ####[facility] Gqehqbqzwa1277 [place] [phone]. Amina Escobar HCT 22.4 % Critically low 42.0-54.0 The [facility] Comment on above: Performed By: #### C ALEX ####[facility] Stpeqtwvgt[address] [place], [place] [address]Dr. Amina Escobar HGB 7.2 g/dl Critically low 14.0-18.0 The [facility] Comment on above: Performed By: #### C ALEX ####[facility] Ojhguszerj[address] [place], [place] [address]Dr. Amina Escobar LYMPHM # 0.70 103/ul Critically low 1.20-3.80 The [facility] Comment on above: Performed By: #### C ALEX ####[facility] Awkgkrzhvf45[address] [place], [place] [address]Dr. Amina Escobar LYMPHM% 9.0 % Critically low 20.5-60.0 The [facility] Comment on above: Performed By: #### C ALEX ####[facility] Ahweuxmahh9106 [place] [phone]. Amina Escobar MCH 28.9 pg Normal 25.9-34.0 The [facility] Comment on above: Performed By: #### C ALEX ####[facility] Ujzyleithk98[address] [place], [place] [address]Dr. Amina Escobar MCHC 32.1 g/dl Normal 29.9-35.2 The [facility] Comment on above: Performed By: #### C ALEX ####[facility] Gr[address]ojqkec[address] [place], [place] [address]Dr. Amina Escobar MCV 90.0 fL Normal 80.0-94.0 [facility] Comment on above: Performed By: #### C ALEX ####[facility] Njamvrjroc5306 [place] [address]Dr. Amina Escobar METAMYELOCYTE # Normal [facility] Comment on above: Performed By: #### C ALEX ####[facility] Yvyunqkujh0047 [place] [phone]. Amina Escobar METAMYELOCYTE % Normal [facility] Comment on above: Performed By: #### C ALEX ####[facility] Judvtqclxt2605 [place] [phone]. Amina Escobar MONOM# 0.39 103/ul Normal 0.30-0.80 [facility] Comment on above: Performed By: #### C ALEX ####[facility] Hcsdyxvigk9356 [place] [address]Dr. Amina Escobar MONOM% 5.0 % Normal 1.7-12.0 [facility] Comment on above: Performed By: #### C ALEX ####[facility] Aqmuiietyr[address] [place], [place] [address]Dr. Amina Escobar MPV 10.9 fL Normal 9.5-13.5 [facility] Comment on above: Performed By: #### C ALEX ####[facility] Fultzuzfuo[address] [place], [place] [address]Dr. Amina Escobar MYELOCYTE # 0.2 103/ul Normal The [facility] Comment on above: Performed By: #### C ALEX ####[facility] Ukzfxrswxt0758 [place] [phone]. Amina Escobar MYELOCYTE % 2 % Normal The [facility] Comment on above: Performed By: #### C ALEX ####[facility] G[address]mtpikvvj[address] [place], [place] [address]Dr. Amina Escobar NRBC Normal The [facility] Comment on above: Performed By: #### C ALEX ####[facility] Qmxuiklulc9[address] [place], [place] [address]Dr. Amina Escobar OVALOCYTES 1+ Normal The [facility] Comment on above: Performed By: #### C ALEX ####[facility] B[address]bfiokcp36[address] [place], [place] [address]Ro. Amina Escobar PLT 163 103/ul Normal 150-450 The [facility] Comment on above: Performed By: #### C ALEX ####[facility] Wkllxinzli3637 [place], [place] [address]. Amina Escobar RBC 2.49 106/ul Critically low 4.70-6.10 The [facility] Comment on above: Performed By: #### C ALEX ####[facility] [place] Sigqwjsquo6110 [place] [phone]. Amina Escobar RDW 18.4 % Critically high 11.0-15.0 [facility] [place] Comment on above: Performed By: #### C ALEX ####[facility] [place] F[address]ccs[address] [place] [id number]. Amina Escobar SEG # 6.16 103/ul Normal 1.40-6.50 [facility] [place] Comment on above: Performed By: #### Florence JOHNSON ####[facility] [place] Xgnnjrxced44[address] [place] [id number]. Amina Escobar SEG % 79.0 % Critically high 43.0-75.0 [facility] [place] Comment on above: Performed By: #### C ALEX ####[facility] [place] Fyuwmcuxxv28[address] [place] [id number]. Amina Escobar WBC 7.8 103/ul Normal 4.0-11.0 [facility] [place] Comment on above: Performed By: #### Florence JOHNSON ####[facility] [place] Pftxzfsuav[address] [place] [id number]. Amina Escobar HEMOGLOBIN AND HEMATOCRITon 04-25-2022 Hematocrit (Bld) [Volume fraction] 27.1 % Critically low 42.0-54.0 [facility] [place] Comment on above: Performed By: #### H GBHCT ####[facility] [place] Ylvxredufb[address] [place] [id number]. Amina Escobar Hemoglobin (Bld) [Mass/Vol] 8.7 g/dL Critically low 14.0-18.0 [facility] [place] Comment on above: Performed By: #### H GBHCT ####[facility] [place] Mg[address]mnfypu[address] [place] [address]Dr. Amina Escobar POINT OF CARE GLUCOSEon 04-11 Glucose [Mass/Vol] 124 mg/dL Critically high 74-106 [facility] Comment on above: Performed By: #### P OCGLUC ####[facility] [place] Ffrkdcibie[address] [place] [address]Dr. Amina Escobar Glucose [Mass/Vol] 102 mg/dL Normal 74-106 [facility] Comment on above: Performed By: #### P OCGLUC ####[facility] [place] X[address]we[address] [place], [place] [address]Dr. Amina Escobar Glucose [Mass/Vol] 108 mg/dL Critically high 74-106 [facility] Comment on above: Performed By: #### P OCGLUC ####[facility] [place] Uhomsxggtf[address] [place], [place] [address]Dr. Amina Escobar Glucose [Mass/Vol] 120 mg/dL Critically high 74-106 [facility] Comment on above: Performed By: #### P OCGLUC ####[facility] [place] Cezmkikfom[address] [place], [place] [address]Dr. Amina Escobar PROF CHEM 8 (BAS METB)on Anion gap [Moles/Vol] 13.2 mmol/L Normal [facility] Comment on above: Performed By: #### B MP ####[facility] [place] Tx[address]rxa[address] [place], [place] [address]Dr. Amina Escobar Calcium [Mass/Vol] 8.1 mg/dL Critically low 8.5-10.1 [facility] Comment on above: Performed By: #### B MP ####[facility] [place] Pnsemewtcj[address] [place], [place] [address]Dr. Amina Escobar Chloride [Moles/Vol] 111 mmol/L Critically high 98-107 [facility] Comment on above: Performed By: #### B MP ####[facility] [place] Mznrgumydj[address] [place], [place] [address]DrMemo Escobar CO2 [Moles/Vol] 26.0 mmol/L Normal 21.0-32.0 [facility] Comment on above: Performed By: #### B MP ####[facility] [place] Jokspbsebn3[address] [place] [address]DrMemo Amina Shawn Creatinine [Mass/Vol] 1.46 mg/dL Critically high 0.70-1.30 [facility] Comment on above: Performed By: #### B MP ####[facility] [place] Rdkjvxwqyw8[address] [place], [place] [address]Dr. Amina Escobar EGFR-AF [place] ISLANDER 56 mL/min/1.73m2 Critically low >=60 [facility] Comment on above: Performed By: #### B MP ####[facility] [place] Zmhihooryq65[address] [place], [place] [address]Dr. Amina Escobar EGFR-NON AF [place]ER 46 mL/min/1.73m2 Critically low >=60 [facility] Comment on above: Performed By: #### B MP ####[facility] [place] Rayxgyfjiv[address] [place], [place] [address]Dr. Amina Escobar Glucose [Mass/Vol] 107 mg/dL Critically high 74-106 [facility] Comment on above: Performed By: #### B MP ####[facility] [place] Dujrsmsmvn[address] [place], [place] [address]DrMemo Escobar Potassium [Moles/Vol] 4.2 mmol/L Normal 3.5-5.1 [facility] Comment on above: Performed By: #### B MP ####[facility] [place] Veeottuffp[address] [place], [place] [address]DrMemo Escobar Sodium [Moles/Vol] 146 mmol/L Critically high 136-145 [facility] Comment on above: Performed By: #### B MP ####[facility] [place] Homfpdxnsn264[address] [place], [place] [address]DrMemo Escobar Urea nitrogen [Mass/Vol] 55.0 mg/dL Critically high 7.0-18.0 [facility] Comment on above: Performed By: #### B MP ####[facility] [place] Jrrnaubzll[address] [place], [place] [address]Dr. Amina Escobar Urea nitrogen/Creatinine [Mass ratio] 37.7 mg/mg Normal [facility] [place] Comment on above: Performed By: #### B MP ####[facility] [place] Yvnigozsgq[address] [place], [place] [address]Dr. Amina Escobar BNPon 04-24-2022 Natriuretic peptide B (Bld) [Mass/Vol] 2519.0 pg/mL Critically high <=1,800.0 [facility] [place] Comment on above: Performed By: #### T SH, HSTROPN, CMP, BNP ####[facility] [place] Praukprygh[address] [place], [place] [address]Dr. Amina Shawn CBC AUTO DIFFon 04-24-2022 BASO # 0.0 103/ul Normal 0.0-0.1 [facility] [place] Comment on above: Performed By: #### C BC ####[facility] [place] Iadvtlkkrl7[address] [place], [place] [address]Dr. Amina Escobar Basophils/100 WBC (Bld) 0.4 % Normal 0.2-2.0 [facility] [place] Comment on above: Performed By: #### C BC ####[facility] [place] Hjesibpuzp[address] [place], [place] [address]Dr. Amina Escobar EO # 0.2 103/ul Normal 0.0-0.7 [facility] [place] Comment on above: Performed By: #### C BC ####[facility] [place] Bjhumzaspo[address] [place], [place] [address]Dr. Amina Escobar Eosinophils/100 WBC (Bld) 1.4 % Normal 0.9-7.0 [facility] [place] Comment on above: Performed By: #### C BC ####[facility] [place] Jynjqkqftj6[address] [place], [place] [address]Dr. Amina Escobar Erythrocyte distribution width (RBC) [Ratio] 20.1 % Critically high 11.0-15.0 [facility] [place] Comment on above: Performed By: #### C BC ####[facility] [place] Plrbfkmdvj0[address] [place], [place] [address]Dr. Amina Escobar Hematocrit (Bld) [Volume fraction] 20.8 % Critically low 42.0-54.0 [facility] Comment on above: Performed By: #### C BC ####[facility] [place] [address]xwzfdy[address] [place] [address]Dr. Amina Escobar Hemoglobin (Bld) [Mass/Vol] 6.5 g/dL Critically low 14.0-18.0 [facility] Comment on above: Performed By: #### C BC ####[facility] [place] R[address]zqqxdkn[address] [place], [place] [address]Dr. Amina Escobar IG # 0.08 10e3/ul Critically high 0.00-0.03 [facility] Comment on above: Performed By: #### C BC ####[facility] [place] F[address]ishskzub[address] [place], [place] [address]Dr. Amina Shawn IG % 0.7 % Critically high 0.0-0.5 [facility] Comment on above: Performed By: #### C BC ####[facility] [place] Pv[address]gtaekf[address] [place], [place] [address]Dr. Kandielda Shawn LYMPH # 0.7 103/ul Critically low 1.2-3.8 [facility] Comment on above: Performed By: #### C BC ####[facility] [place] Wwcccckejq7[address] [place], [place] [address]Dr. Amina Escobar Lymphocytes/100 WBC (Bld) 6.4 % Critically low 20.5-60.0 [facility] Comment on above: Performed By: #### C BC ####[facility] [place] Etqqoabbin[address] [place], [place] [address]Dr. Kandielda Escobar MANUAL DIFF REQ NO Normal [facility] [place] Comment on above: Performed By: #### C BC ####[facility] [place] Pcgcfpmkpz64[address] [place], [place] [address]Dr. Kandielda Escobar MCH (RBC) [Entitic mass] 28.5 pg Normal 25.9-34.0 [facility] [place] Comment on above: Performed By: #### C BC ####[facility] Eunzjeqalc[address] [place], [place] [address]Dr. Amina Escobar MCHC (RBC) [Mass/Vol] 31.3 g/dL Normal 29.9-35.2 [facility] [place] Comment on above: Performed By: #### C BC ####[facility] [place] B[address]wasmbj[address] [place] [id number]. Amina Escobar MCV (RBC) [Entitic vol] 91.2 fL Normal 80.0-94.0 [facility] [place] Comment on above: Performed By: #### C BC ####[facility] [place] Spljqmqkxq[address] [place] [id number]. Amina Escobar MONO # 0.6 103/ul Normal 0.3-0.8 [facility] [place] Comment on above: Performed By: #### C BC ####[facility] [place] [address]wdcxmi[address] [place] [address]Dr. Amina Shawn Monocytes/100 WBC (Bld) 5.0 % Normal 1.7-12.0 [facility] [place] Comment on above: Performed By: #### C BC ####[facility] [place] Xoypgbeyed[address] [place], [place] [address]Dr. Amina Escobar NEUT # 9.4 103/ul Critically high 1.4-6.5 [facility] Comment on above: Performed By: #### C BC ####[facility] [place] B[address]mpycccs[address] [place], [place] [address]Dr. Amina Shawn Neutrophils/100 WBC (Bld) 86.1 % Critically high 43.0-75.0 [facility] [place] Comment on above: Performed By: #### C BC ####[facility] [place] S[address]tmwqg[address] [place], [place] [address]Dr. Amina Shawn Platelet mean volume (Bld) [Entitic vol] 10.8 fL Normal 9.5-13.5 [facility] [place] Comment on above: Performed By: #### C BC ####[facility] [place] [address]twx[address] [place], [place] [address]Dr. Amina Shawn PLT 202 103/ul Normal 150-450 [facility] [place] Comment on above: Performed By: #### C BC ####[facility] [place] [address]ogxrqra[address] [place] [id number]. Amina Escobar RBC 2.28 106/ul Critically low 4.70-6.10 [facility] [place] Comment on above: Performed By: #### C BC ####[facility] [place] [address]zz[address] [place], [place] [address]Iz. Amina Escobar WBC 10.9 103/ul Normal 4.0-11.0 [facility] [place] Comment on above: Performed By: #### C BC ####[facility] [place] Sh[address]yz[address]fa[address] [place], [place] [address]Ij. Amina Escobar CT CSPINE WO CONon CT CSPINE WO CON Normal [facility] [place] CT HEAD WO CONon 04-24-2022 CT HEAD WO CON Normal [facility] CULTURE URINEon 04-24-2022 CULTURE URINE Culture Observations : LIGHT GROWTH OF MIXED SKIN NERISSA. NO POTENTIAL PATHOGENS SEEN. Normal [facility] [place] Comment on above: Performed By: #### U RCX ####[facility] [place] [address]vn[address] [place], [place] [address]Fq. Amina Escobar Covid-19 PCR (CVDTB)on 04-11 SARS-CoV-2 (COVID-19) RNA MARSHALL+probe Ql (Unsp spec) Not detected Normal NOT DETECTED [facility] [place] Comment on above: Result Comment: When diagnostic testing is negative, the possibility of a false negative should be considered inthe context of a patient's recent exposures and the presence of clinical signs and symptomsconsistent with SARS-CoV-2.This test is not yet approved or cleared by the [place] FDA. When there are no FDA-approved or cleared tests available, and other criteria are met, FDA can make tests available under an emergency access mechanism called an Emergency Use Authorization (EUA). The EUA for this test is supported by the [place] of Health and Human Service's declaration that circumstances exist to justify the emergency use of in vitro diagnostics for the detection and/or diagnosis of the virus that causes COVID-19. This EUA will remain in effect for the duration of the COVID-19 declaration justifying emergency of IVDs, unless it is terminated or revoked by the FDA (after which the test may no longer be used). Performed By: #### C VDTBH ####[facility] [place] Jvxzd[address]semv[address] [place], [place] [address]Zy. Amina Shawn ER URINE PROFILEon 2 Bilirubin Ql (U) Negative Normal NEGATIVE [facility] [place] Comment on above: Performed By: #### NATALYA ROSALESRO ####[facility] [place] Sirhmassmj[address] [place], [place] [address]Dr. Amina Escobar Clarity (U) CLEAR Normal CLEAR [facility] [place] Comment on above: Performed By: #### NATALYA ROSALESRO ####[facility] [place] [address]ymgdv[address] [place] [address]Dr. Amina Shawn Color (U) LT. YELLOW Normal YELLOW [facility] [place] Comment on above: Performed By: #### NATALYA ROSALESRO ####[facility] [place] Cdwxjmkzlm[address] [place], [place] [address]Dr. Amina Escobar ERUAHD A micrscopic examina tion will be performed if indicated. Normal [facility] [place] Comment on above: Performed By: #### NATALYA ROSALESRO ####[facility] [place] Cpoxnmaxfk0[address] [place], [place] [address]Dr. Amina Escobar Glucose Ql (U) Negative Normal NEGATIVE [facility] [place] Comment on above: Performed By: #### NATALYA ROSALESRO ####[facility] [place] Utbpessxgb[address] [place], [place] [address]Dr. Amina Shawn Hemoglobin Ql (U) Negative Normal NEGATIVE [facility] [place] Comment on above: Performed By: #### NATALYA ROSALESRO ####[facility] [place] [address]jccjts[address] [place], [place] [address]Dr. Amina Escobar Ketones Ql (U) Negative Normal NEGATIVE [facility] [place] Comment on above: Performed By: #### NATALYA ROSALESRO ####[facility] [place] Ambticarwb13[address] [place], [place] [address]Dr. Amina Escobar LEUKOCYTES TRACE Abnormal NEGATIVE [facility] [place] Comment on above: Performed By: #### NATALYA ROSALESRO ####[facility] [place] P[address]fthefxx[address] [place], [place] [address]Dr. Amina Escobar Nitrite Ql (U) Negative Normal NEGATIVE [facility] [place] Comment on above: Performed By: #### DMITRI ROSALES ####[facility] [place] Fkvmpipejb[address] [place] [address]Dr. Amina Escobar pH (U) 5.5 [pH] Normal 5-9 [facility] [place] Comment on above: Performed By: #### NATALYA ROSALESRO ####[facility] [place] Tedbqiterh[address] [place] [address]Dr. Amina Escobar SPEC GRAVITY 1.015 Normal 1.005-<=1. 025 [facility] [place] Comment on above: Performed By: #### Noa HIGGINS DUKERO ####[facility] [place] Txccinvcps[address] [place], [place] [address]Dr. Amina Escobar UA PROTEIN Negative Normal NEGATIVE/ TRACE [facility] [place] Comment on above: Performed By: #### Noa HIGGINS DUKERO ####[facility] [place] M[address]sevkyqw[address] [place], [place] [address]Dr. Amina Escobar UR MICRO IND INDICATED Normal [facility] Comment on above: Performed By: #### NATALYA ROSALESRO ####[facility] [place] Xehxdywfqs[address] [place], [place] [address]Dr. Amina Escobar Urobilinogen Qn (U) 0.2 {Mel'U}/dL Normal 0.2 - 1. 0 [facility] [place] Comment on above: Performed By: #### Noa HIGGINS DUKERO ####[facility] [place] Y[address]xgaszyj[address] [place], [place] [address]Dr. Amina Escobar IRONon 04-24-2022 Iron [Mass/Vol] 36.0 ug/dL Critically low 65.0-175.0 [facility] Comment on above: Performed By: #### I PHIL ####[facility] [place] [address]utsgxz[address] [place], [place] [address]Dr. Amina sEcobar OCC BLD IMMUNO SCREENon 04-11 OCCULT BLOOD Positive Abnormal NEGATIVE [facility] Comment on above: Performed By: #### O BSCRN ####[facility] [place] C[address]snmsyej0[address] [place], [place] [address]Dr. Amina Escobar PROF 14(COMP METB)on 022 Albumin [Mass/Vol] 3.2 g/dL Critically low 3.4-5.0 Th e [facility] [place] Comment on above: Performed By: #### T SH, HSTROPN, CMP, BNP ####[facility] [place] [address]cckn[address] [place] [address]Dr. Amina Escobar Albumin/Globulin [Mass ratio] 1.0 {ratio} Normal [facility] Comment on above: Performed By: #### T SH, HSTROPN, CMP, BNP ####[facility] [place] [address]ktbspuc[address] [place] [address]Dr. Amina Escobar ALP [Catalytic activity/Vol] 148 U/L Critically high 46-116 [facility] Comment on above: Performed By: #### T SH, HSTROPN, CMP, BNP ####[facility] [place] [address]kylc[address] [place], [place] [address]Dr. Amina Escobar ALT [Catalytic activity/Vol] 19 U/L Normal 16-63 [facility] Comment on above: Performed By: #### T SH, HSTROPN, CMP, BNP ####[facility] [place] [address]ovltcm[address] [place] [address]Dr. Amina Escobar Anion gap [Moles/Vol] 12.0 mmol/L Normal [facility] Comment on above: Performed By: #### T SH, HSTROPN, CMP, BNP ####[facility] [place] [address]wjnd[address] [place] [address]Dr. Amina Escobar AST [Catalytic activity/Vol] 11 U/L Critically low 15-37 [facility] Comment on above: Performed By: #### T SH, HSTROPN, CMP, BNP ####[facility] [place] Telioqxkyt[address] [place] [address]Dr. Amina Escobar Bilirubin [Mass/Vol] 0.5 mg/dL Normal 0.2-1.0 [facility] Comment on above: Performed By: #### T SH, HSTROPN, CMP, BNP ####[facility] [place] Tostssfdfe[address] [place] [address]Dr. Amina Escobar Calcium [Mass/Vol] 8.1 mg/dL Critically low 8.5-10.1 Th e [facility] [place] Comment on above: Performed By: #### T SH, HSTROPN, CMP, BNP ####[facility] [place] [address]ffitqvq[address] [place] [address]Dr. Amina Escobar Chloride [Moles/Vol] 110 mmol/L Critically high 98-107 [facility] [place] Comment on above: Performed By: #### T SH, HSTROPN, CMP, BNP ####[facility] [place] [address]dqczdwg[address] [place] [address]Dr. Amina Escobar CO2 [Moles/Vol] 24.0 mmol/L Normal 21.0-32.0 [facility] Comment on above: Performed By: #### T SH, HSTROPN, CMP, BNP ####[facility] [place] [address]ajv[address] [place], [place] [address]Dr. Amina Escobar Creatinine [Mass/Vol] 1.55 mg/dL Critically high 0.70-1.30 [facility] [place] Comment on above: Performed By: #### T SH, HSTROPN, CMP, BNP ####[facility] [place] [address]lekjudqb[address] [place], [place] [address]Dr. Amina Escobar EGFR-AF [place]LANDER 52 mL/min/1.73m2 Critically low >=60 [facility] [place] Comment on above: Performed By: #### T SH, HSTROPN, CMP, BNP ####[facility] [place] Pfmkltmyiz[address] [place], [place] [address]Dr. Amina Escobar EGFR-NON AF [place] 43 mL/min/1.73m2 Critically low >=60 [facility] [place] Comment on above: Performed By: #### T SH, HSTROPN, CMP, BNP ####[facility] [place] [address]kf[address] [place] [address]Dr. Amina Escobar Globulin (S) [Mass/Vol] 3.3 g/dL Normal The [facility] [place] Comment on above: Performed By: #### T SH, HSTROPN, CMP, BNP ####[facility] [place] [address]la[address] [place] [address]Dr. Amina Escobar Glucose [Mass/Vol] 139 mg/dL Critically high 74-106 [facility] Comment on above: Performed By: #### T SH, HSTROPN, CMP, BNP ####[facility] [place] Hzzsiarqec[address] [place] [address]Dr. Kandielda Escobar Potassium [Moles/Vol] 4.0 mmol/L Normal 3.5-5.1 [facility] [place] Comment on above: Performed By: #### T SH, HSTROPN, CMP, BNP ####[facility] [place] X[address]xzrevan[address] [place] [address]Dr. Kandielda Escobar Protein [Mass/Vol] 6.5 g/dL Normal 6.4-8.2 [facility] [place] Comment on above: Performed By: #### T SH, HSTROPN, CMP, BNP ####[facility] [place] K[address]pkbrqsly[address] [place], [place] [address]Dr. Amina Escobar Sodium [Moles/Vol] 142 mmol/L Normal 136-145 [facility] [place] Comment on above: Performed By: #### T SH, HSTROPN, CMP, BNP ####[facility] [place] Imsebmmmda[address] [place], [place] [address]Dr. Amina Escobar Urea nitrogen [Mass/Vol] 58.0 mg/dL Critically high 7.0-18.0 [facility] [place] Comment on above: Performed By: #### T SH, HSTROPN, CMP, BNP ####[facility] [place] [address]jga[address] [place], [place] [address]Dr. Amina Escobar Urea nitrogen/Creatinine [Mass ratio] 37.4 mg/mg Normal [facility] [place] Comment on above: Performed By: #### T SH, HSTROPN, CMP, BNP ####[facility] [place] [address]fltt[address] [place] [address]Dr. Amina Escobar PROTIMEon 04-24-2022 INR Coag (PPP) [Relative time] 2.33 {INR} Normal [facility] [place] Comment on above: Performed By: #### P T, PTT ####[facility] [place] In[address]zslwx[address] [place], [place] [address]Dr. Amina Escobar INR GUIDELINES SEE BELOW Normal The [facility] Comment on above: Result Comment: LIMA RED INR: 2.0 - 3.0 CONDITIONS NOT LISTED BELOW 2.5 - 3.5 FOR PROSTHETIC HEART VALVE REPLACEMENT 2.5 - 3.5 RECURRENT THROMBOSIS Performed By: #### P T, PTT ####[facility] [address] [place] [address]Dr. Amina Escobar PT Coag (PPP) [Time] 23.8 s Critically high 9.0-11.6 The [facility] Comment on above: Performed By: #### P T, PTT ####[facility] [address] [place] [address]Dr. Amina Escobar PTTon 04-24-2022 aPTT Coag (Bld) [Time] 37.6 s Critically high 22.3-36.2 The [facility] Comment on above: Performed By: #### P T, PTT ####[facility] [address] [place], [place] [address]Dr. Amina Shawn TROPONIN, HIGH SENSITIVITYon 04-24-2022 HSTROP 19.5 pg/mL Normal 4.0-76.1 The [facility] Comment on above: Result Comment: CUT- OFF POINTS HAVE BEEN ESTABLISHED BASED ON THE FOURTH UNIVERSAL DEFINITIONS OF MYOCARDIALINFARCTION. THE UPPER REFERENCE LIMIT (URL) OF TROPONIN, DEFINED THE 99TH PERCENTILE OFcTnI DISTRIBUTION IN A REFERENCE POPULATION, HAS BEEN CONFIRMED THE DECISION THRESHOLDFOR MA DIAGNOSIS. Performed By: #### T SH, HSTROPN, CMP, BNP ####[facility] [address]ug[address] [place] [address]Dr. Amina Shawn TSHon 04-24-2022 TSH 7.569 uIU/mL Critically high 0.358-3.74 0 [facility] Comment on above: Performed By: #### T SH, HSTROPN, CMP, BNP ####[facility] [address]ccedvs[address] [place] [address]Dr. Amina Escobar TYPE AND SCREENon 04-24-2022 TYPE AND SCREEN Negative Normal [facility] Comment on above: Performed By: #### T NS ####[facility] [address] [place] [address]Dr. Amina Escobar URINE MICROSCOPIC ONLYon BACTERIA TRACE Abnormal NONE SEEN The [facility] Comment on above: Performed By: #### NAATLYA ROSALESRO ####[facility] [address]pmp[address] [place] [address]Dr. Amina Escobar Bacteria identified Cx Nom (U) INDICATED Normal The [facility] Comment on above: Performed By: #### LARRY ROSALESICRO ####[facility] [address]ymyjdy[address] [place] [address]Dr. Amina Escobar CAST NONE SEEN Normal NONE SEEN The [facility] Comment on above: Performed By: #### LARRY ROSALESICRO ####[facility] Qcjqffilmz[address] [place] [address]Dr. Amina Escobar Crystals LM Nom (Urine sed) NONE SEEN Normal NONE SEEN The [facility] Comment on above: Performed By: #### NATALYA ROSALESRO ####[facility] [address] [place], [place] [address]Dr. Amina Escobar Epithelial cells LM Ql (Urine sed) RARE Normal NONE SEEN /RARE The [facility] Comment on above: Performed By: #### Noa HIGGINS UMICRO ####[facility] [address] [place], [place] [address]Dr. Amina Escobar MUCOUS TRACE Abnormal NONE SEEN The [facility] Comment on above: Performed By: #### Noa HIGGINS UMICRO ####[facility] [address]emwy[address] [place] [address]Dr. Amina Escobar RBC NONE SEEN Abnormal 0-2 The [facility] Comment on above: Performed By: #### LARRY ROSALESICRO ####[facility] Xqxnup[address]aa[address] [place] [address]Dr. Amina Escobar WBC 0-2 Abnormal NONE SEEN The [facility] Comment on above: Performed By: #### Noa HIGGINS UMICRO ####[facility] Pbefmtvpug[address] [place] [address]Dr. Amina Escobar XR CHEST 1 Von 04-24-2022 XR CHEST 1 V Normal The [facility] XR PELVIS 1_2 VIEWSon 2021 XR PELVIS 1_2 VIEWS Normal The [facility] HEMOGRAM AND PLATELon 2021 Hematocrit (Bld) [Volume fraction] 37.9 % Critically low 42.0-54.0 The [facility] Comment on above: Performed By: #### H H ####[facility] [address]tx[address] [place] [address]Dr. Amina Escobar Hemoglobin (Bld) [Mass/Vol] 11.6 g/dL Critically low 14.0-18.0 The [facility] Comment on above: Performed By: #### H H ####[facility] Undtbwmhmh[address] [place] [address]Dr. Amina Escobar MCH (RBC) [Entitic mass] 27.1 pg Normal 25.9-34.0 The [facility] Comment on above: Performed By: #### H H ####[facility] Gzmwestw[address] [place], [place] [address]Dr. Amina Escobar MCHC (RBC) [Mass/Vol] 30.6 g/dL Normal 29.9-35.2 The [facility] Comment on above: Performed By: #### H H ####[facility] [address]td[address] [place], [place] [address]Dr. Amina Escobar MCV (RBC) [Entitic vol] 88.6 fL Normal 80.0-94.0 The [facility] Comment on above: Performed By: #### H H ####[facility] X[address] [place], [place] [address]Dr. Amina Escobar PLT 165 103/ul Normal 150-450 The [facility] Comment on above: Performed By: #### H H ####[facility] Mk[address]arljsi[address] [place], [place] [address]Dr. Amina Escobar RBC 4.28 106/ul Critically low 4.70-6.10 The [facility] Comment on above: Performed By: #### H H ####[facility] [address] [place], [place] [address]Dr. Amina Escobar WBC 7.4 103/ul Normal 4.0-11.0 The [facility] Comment on above: Performed By: #### H H ####[facility] N[address]ff[address] [place], [place] [address]Dr. Kandielda Shawn IRONon 04-10-2022 Iron [Mass/Vol] 66.0 ug/dL Normal 65.0-175.0 [facility] Comment on above: Performed By: #### I PHIL ####[facility] K[address]xzngj[address] [place], [place] [address]Dr. Kandielda Shawn CBC AUTO DIFFon 02-16-2022 BASO # 0.1 103/ul Normal 0.0-0.1 [facility] Comment on above: Performed By: #### C BC ####[facility] [address]wi[address] [place], [place] [address]Dr. Amina Escobar Basophils/100 WBC (Bld) 0.8 % Normal 0.2-2.0 The [facility] Comment on above: Performed By: #### C BC ####[facility] T[address]aomkqi[address] [place], [place] [address]Dr. Amina Escobar EO # 0.2 103/ul Normal 0.0-0.7 The [facility] Comment on above: Performed By: #### C BC ####[facility] Eqtqrpodan[address] [place], [place] [address]Dr. Amina Escobar Eosinophils/100 WBC (Bld) 3.2 % Normal 0.9-7.0 The [facility] Comment on above: Performed By: #### C BC ####[facility] Wezdlorqof[address] [place], [place] [address]Dr. Amina Escobar Erythrocyte distribution width (RBC) [Ratio] 17.6 % Critically high 11.0-15.0 The [facility] Comment on above: Performed By: #### C BC ####[facility] [address] [place], [place] [address]Dr. Amina Escobar Hematocrit (Bld) [Volume fraction] 36.5 % Critically low 42.0-54.0 The [facility] Comment on above: Performed By: #### C BC ####[facility] [address]hemlud[address] [place], [place] [address]Dr. Amina Escobar Hemoglobin (Bld) [Mass/Vol] 11.2 g/dL Critically low 14.0-18.0 The [facility] Comment on above: Performed By: #### C BC ####[facility] [address] [place] [address]DrMemo Amina Escobar IG # 0.02 10e3/ul Normal 0.00-0.03 The [facility] Comment on above: Performed By: #### C BC ####[facility] [address]hzmjv[address] [place] [address]DrMemo Kandielda Escobar IG % 0.3 % Normal 0.0-0.5 [facility] Comment on above: Performed By: #### C BC ####[facility] V[address]fst[address] [place], [place] [address]DrMemo Escobar LYMPH # 0.9 103/ul Critically low 1.2-3.8 The [facility] Comment on above: Performed By: #### C BC ####[facility] Ajtevfbrbl[address] [place], [place] [address]DrMemo Escobar Lymphocytes/100 WBC (Bld) 14.2 % Critically low 20.5-60.0 [facility] Comment on above: Performed By: #### C BC ####[facility] [address] [place], [place] [address]DrMemo Kandielda Escobar MANUAL DIFF REQ NO Normal [facility] Comment on above: Performed By: #### C BC ####[facility] [address]odn[address] [place], [place] [address]DrMemo Escobar MCH (RBC) [Entitic mass] 26.4 pg Normal 25.9-34.0 The [facility] Comment on above: Performed By: #### C BC ####[facility] V[address]iyldbg[address] [place], [place] [address]DrMemo Escobar MCHC (RBC) [Mass/Vol] 30.7 g/dL Normal 29.9-35.2 The [facility] Comment on above: Performed By: #### C BC ####[facility] Dxuogrktht[address] [place], [place] [address]DrMemo Escobar MCV (RBC) [Entitic vol] 86.1 fL Normal 80.0-94.0 The [facility] Comment on above: Performed By: #### C BC ####[facility] [address]we[address] [place] [address]DrMemo Amina Escobar MONO # 0.6 103/ul Normal 0.3-0.8 The [facility] Comment on above: Performed By: #### C BC ####[facility] S[address]bfsdgoiy[address] [place] [address]DrMemo Escobar Monocytes/100 WBC (Bld) 8.7 % Normal 1.7-12.0 The [facility] Comment on above: Performed By: #### C BC ####[facility] F[address]zdjg[address] [place], [place] [address]DrMemo Amina Escobar NEUT # 4.6 103/ul Normal 1.4-6.5 The [facility] Comment on above: Performed By: #### C BC ####[facility] L[address]nndib[address] [place], [place] [address]DrMemo Escobar Neutrophils/100 WBC (Bld) 72.8 % Normal 43.0-75.0 The [facility] Comment on above: Performed By: #### C BC ####[facility] A[address]zu[address] [place], [place] [address]DrMemo Kandielda Escobar Platelet mean volume (Bld) [Entitic vol] 11.0 fL Normal 9.5-13.5 The [facility] Comment on above: Performed By: #### C BC ####[facility] [address]fiiwwdbc[address] [place], [place] [address]Dr. Kandielda Shawn PLT 183 103/ul Normal 150-450 The [facility] Comment on above: Performed By: #### C BC ####[facility] Ppmbundkay[address] [place], [place] [address]DrMemo Escobar RBC 4.24 106/ul Critically low 4.70-6.10 The [facility] Comment on above: Performed By: #### C BC ####[facility] Aff[address] [place], [place] [address]DrMemo Escobar WBC 6.3 103/ul Normal 4.0-11.0 [facility] Comment on above: Performed By: #### C BC ####[facility] Scaps[address]ud[address] [place] [address]DrMemo Escobar CULTURE URINEon 02-16-2022 CULTURE URINE Culture Observations : NO GROWTH. Normal The [facility] Comment on above: Performed By: #### U RCX ####[facility] [address]qxbq[address] [place] [address]DrMemo Escobar PROF 14(COMP METB)on 022 Albumin [Mass/Vol] 3.5 g/dL Normal 3.4-5.0 [facility] Comment on above: Performed By: #### C MP ####[facility] [address]nzbfxb[address] [place], [place] [address]Dr. Amina Escobar Albumin/Globulin [Mass ratio] 1.0 {ratio} Normal [facility] Comment on above: Performed By: #### C MP ####[facility] N[address]zuoq[address] [place], [place] [address]Dr. Amina Escobar ALP [Catalytic activity/Vol] 199 U/L Critically high 46-116 The [facility] Comment on above: Performed By: #### C MP ####[facility] [address]jcxpm[address] [place], [place] [address]Dr. Amina Escobar ALT [Catalytic activity/Vol] 17 U/L Normal 16-63 The [facility] Comment on above: Performed By: #### C MP ####[facility] Hrhelgzczx[address] [place], [place] [address]DrMemo Escobar Anion gap [Moles/Vol] 13.3 mmol/L Normal [facility] Comment on above: Performed By: #### C MP ####[facility] [address]spxktycl[address] [place] [address]DrMemo Escobar AST [Catalytic activity/Vol] 10 U/L Critically low 15-37 The [facility] Comment on above: Performed By: #### C MP ####[facility] [address]hcnkd[address] [place] [address]DrMemo Escobar Bilirubin [Mass/Vol] 0.4 mg/dL Normal 0.2-1.0 [facility] Comment on above: Performed By: #### C MP ####[facility] Wtbpwuaups[address] [place] [address]Dr. Amina Escobar Calcium [Mass/Vol] 8.5 mg/dL Normal 8.5-10.1 [facility] Comment on above: Performed By: #### C MP ####[facility] [address]zqjqeoxv[address] [place] [address]Dr. Amina Escobar Chloride [Moles/Vol] 110 mmol/L Critically high 98-107 [facility] Comment on above: Performed By: #### C MP ####[facility] [address]si[address]dklus[address] [place] [address]Dr. Amina Escobar CO2 [Moles/Vol] 26.0 mmol/L Normal 21.0-32.0 [facility] Comment on above: Performed By: #### C MP ####[facility] [address]chi[address] [place], [place] [address]Dr. Amina Escobar Creatinine [Mass/Vol] 1.35 mg/dL Critically high 0.70-1.30 [facility] Comment on above: Performed By: #### C MP ####[facility] [address]xaltxef[address] [place], [place] [address]Dr. Amina Escobar EGFR-AF PITCAIRN ISLANDER >60 Normal >=60 [facility] Comment on above: Performed By: #### C MP ####[facility] [address]gf[address] [place] [address]Dr. Amina Shawn EGFR-NON AF P[place] ISLANDER 50 mL/min/1.73m2 Critically low >=60 [facility] Comment on above: Performed By: #### C MP ####[facility] [address]apnrhbas[address] [place] [address]Dr. Amina Shawn Globulin (S) [Mass/Vol] 3.6 g/dL Normal [facility] Comment on above: Performed By: #### C MP ####[facility] J[address]rezhlel[address] [place] [address]Dr. Amina Escobar Glucose [Mass/Vol] 109 mg/dL Critically high 74-106 [facility] Comment on above: Performed By: #### C MP ####[facility] Xbydoyqmyn[address] [place] [address]Dr. Amina Escobar Potassium [Moles/Vol] 4.3 mmol/L Normal 3.5-5.1 [facility] Comment on above: Performed By: #### C MP ####[facility] Ulpsrhejyo[address] [place], [place] [address]Dr. Amina Escobar Protein [Mass/Vol] 7.1 g/dL Normal 6.4-8.2 The [facility] Comment on above: Performed By: #### C MP ####[facility] [address]wktle[address] [place], [place] [address]Dr. Amina Escobar Sodium [Moles/Vol] 145 mmol/L Normal 136-145 [facility] Comment on above: Performed By: #### C MP ####[facility] [address]qvarsnoth[address] [place], [place] [address]Dr. Amina Escobar Urea nitrogen [Mass/Vol] 34.0 mg/dL Critically high 7.0-18.0 [facility] Comment on above: Performed By: #### C MP ####[facility] Z[address]ruclmui[address] [place], [place] [address]Dr. Amina Escobar Urea nitrogen/Creatinine [Mass ratio] 25.2 mg/mg Normal [facility] Comment on above: Performed By: #### C MP ####[facility] [address]emucvfuy[address] [place], [place] [address]Dr. Amina Escobar UA (CLEAN/CATCH) MICROSCOPIC IF INDICATEon 02-16-2022 Bilirubin Ql (U) Negative Normal NEGATIVE [facility] Comment on above: Performed By: #### U ARMICR ####[facility] K[address]rwnkstb[address] [place], [place] [address]Dr. Amina Escobar Clarity (U) CLEAR Normal CLEAR [facility] Comment on above: Performed By: #### U ARMICR ####[facility] Og[address]doniq[address] [place], [place] [address]Dr. Amina Escobar Color (U) YELLOW Normal YELLOW The [facility] Comment on above: Performed By: #### U ARMICR ####[facility] Unudelosvo[address] [place] [address]Dr. Amina Escobar Glucose Ql (U) Negative Normal NEGATIVE The [facility] Comment on above: Performed By: #### U ARMICR ####[facility] W[address]velirihu[address] [place] [address]Dr. Amina Escobar Hemoglobin Ql (U) Negative Normal NEGATIVE The [facility] Comment on above: Performed By: #### U ARMICR ####[facility] [address]uev[address] [place] [address]Dr. Amina Escobar Ketones Ql (U) Negative Normal NEGATIVE The [facility] Comment on above: Performed By: #### U ARMICR ####[facility] [address]jfef[address] [place] [address]Dr. Amina Escobar LEUKOCYTES Negative Normal NEGATIVE The [facility] Comment on above: Performed By: #### U ARMICR ####[facility] [address]hwdkr[address] [place] [address]Dr. Amina Escobar Nitrite Ql (U) Negative Normal NEGATIVE The [facility] Comment on above: Performed By: #### U ARMICR ####[facility] [address]ixjej[address] [place] [address]Dr. Amina Escobar pH (U) 5.5 [pH] Normal 5-9 The [facility] Comment on above: Performed By: #### U ARMICR ####[facility] Ded[address]rifj[address] [place] [address]Dr. Amina Escobar SPEC GRAVITY 1.025 Normal 1.005-<=1. 025 The [facility] Comment on above: Performed By: #### U ARMICR ####[facility] [address]cyhpvk[address] [place] [address]Dr. Amina Escobar UA PROTEIN Negative Normal NEGATIVE/ TRACE The [facility] Comment on above: Performed By: #### U ARMICR ####[facility] [address]lfuam[address] [place] [address]Dr. Amina Escobar UR MICRO IND MICROSCOPIC ALREADY ORDERED Normal The [facility] Comment on above: Performed By: #### U ARMICR ####[facility] [address]joyjhr[address] [place] [address]Dr. Amina Escobar Urobilinogen Qn (U) 0.2 {Mel'U}/dL Normal 0.2 - 1. 0 The [facility] Comment on above: Performed By: #### U ARMDUKER ####[facility] [address]qkk[address] [place] [address]Dr. Amina Escobar ECHOCARDIO M/2D COMPLETEon 0 02-11-2022 ECHOCARDIO M/2D COMPLETE Normal The [facility] CBC AUTO DIFFon 01-06-2022 BASO # 0.0 103/ul Normal 0.0-0.1 The [facility] Comment on above: Performed By: #### C BC ####[facility] [address]ypu[address] [place], [place] [address]Dr. Amina Escobar Basophils/100 WBC (Bld) 0.7 % Normal 0.2-2.0 The [facility] Comment on above: Performed By: #### C BC ####[facility] [address]rmpc[address] [place], [place] [address]Dr. Amina Escobar EO # 0.3 103/ul Normal 0.0-0.7 The [facility] Comment on above: Performed By: #### C BC ####[facility] [address]ofcp[address] [place], [place] [address]Dr. Amina Shawn Eosinophils/100 WBC (Bld) 5.4 % Normal 0.9-7.0 The [facility] Comment on above: Performed By: #### C BC ####[facility] [address]klf[address] [place], [place] [address]Dr. Amina Escobar Erythrocyte distribution width (RBC) [Ratio] 18.2 % Critically high 11.0-15.0 The [facility] Comment on above: Performed By: #### C BC ####[facility] [address]me[address]pe[address] [place], [place] [address]Dr. Kandielda Escobar Hematocrit (Bld) [Volume fraction] 35.6 % Critically low 42.0-54.0 The [facility] Comment on above: Performed By: #### C BC ####[facility] [address]npl[address] [place] [address]Dr. Amina Escobar Hemoglobin (Bld) [Mass/Vol] 10.9 g/dL Critically low 14.0-18.0 The [facility] Comment on above: Performed By: #### C BC ####[facility] K[address]wmru[address] [place] [address]Dr. Amina Escobar IG # 0.02 10e3/ul Normal 0.00-0.03 The [facility] Comment on above: Performed By: #### C BC ####[facility] [address]ilsqwqs[address] [place] [address]Dr. Amina Escobar IG % 0.4 % Normal 0.0-0.5 The [facility] Comment on above: Performed By: #### C BC ####[facility] [address]yturbd[address] [place] [address]Dr. Amina Shawn LYMPH # 0.8 103/ul Critically low 1.2-3.8 The [facility] Comment on above: Performed By: #### C BC ####[facility] [address]mfhkastnl0241 [place] [address]Dr. Amina Shawn Lymphocytes/100 WBC (Bld) 13.4 % Critically low 20.5-60.0 The [facility] [place] Comment on above: Performed By: #### C BC ####[facility] [place] [address]wskpl[address] [place] [address]Dr. Amina Escobar MANUAL DIFF REQ NO Normal The [facility] [place] Comment on above: Performed By: #### C BC ####[facility] [place] Hxmqozlmnl66[address] [place] [address]Dr. Amina Escobar MCH (RBC) [Entitic mass] 26.6 pg Normal 25.9-34.0 The [facility] [place] Comment on above: Performed By: #### C BC ####[facility] [place] [address] [place], [place] [address]Dr. Amina Shawn MCHC (RBC) [Mass/Vol] 30.6 g/dL Normal 29.9-35.2 The [facility] [place] Comment on above: Performed By: #### C BC ####[facility] [place] [address] [place], [place] [address]Dr. Amina Shawn MCV (RBC) [Entitic vol] 86.8 fL Normal 80.0-94.0 The [facility] [place] Comment on above: Performed By: #### C BC ####[facility] [place] [address]rlskqck[address] [place] [address]Dr. Amina Escobar MONO # 0.6 103/ul Normal 0.3-0.8 The [facility] [place] Comment on above: Performed By: #### C BC ####[facility] [place] [address] [place], [place] [address]Dr. Amina Shawn Monocytes/100 WBC (Bld) 10.4 % Normal 1.7-12.0 The [facility] [place] Comment on above: Performed By: #### C BC ####[facility] [place] [address] [place], [place] [address]Dr. Amina Escobar NEUT # 3.9 103/ul Normal 1.4-6.5 The [facility] [place] Comment on above: Performed By: #### C BC ####[facility] [place] Jr[address]hyqsnwo[address] [place], [place] [address]Dr. Amina Shawn Neutrophils/100 WBC (Bld) 69.7 % Normal 43.0-75.0 The [facility] [place] Comment on above: Performed By: #### C BC ####[facility] [place] Dw[address]aky[address] [place], [place] [address]Dr. Amina Shawn Platelet mean volume (Bld) [Entitic vol] 10.6 fL Normal 9.5-13.5 The [facility] [place] Comment on above: Performed By: #### C BC ####[facility] [place] [address] [place], [place] [address]Dr. Kandielda Shawn PLT 180 103/ul Normal 150-450 The [facility] [place] Comment on above: Performed By: #### C BC ####[facility] [place] [address] [place], [place] [address]Dr. Amina Escobar RBC 4.10 106/ul Critically low 4.70-6.10 The [facility] [place] Comment on above: Performed By: #### C BC ####[facility] [place] [address] [place], [place] [address]Dr. Amina Escobar WBC 5.6 103/ul Normal 4.0-11.0 The [facility] [place] Comment on above: Performed By: #### C BC ####[facility] [place] [address]ce[address] [place] [id number]. Amina Escobar IRONon 01-06-2022 Iron [Mass/Vol] 42.0 ug/dL Critically low 65.0-175.0 The [facility] [place] Comment on above: Performed By: #### I PHIL ####[facility] [place] M[address]kid[address] [place], [place] [address]Dr. Amina Escobar CBC AUTO DIFFon 12-23-2021 BASO # 0.1 103/ul Normal 0.0-0.1 The [facility] [place] Comment on above: Performed By: #### C BC ####[facility] [place] Qpbmapbcfl[address] [place], [place] [address]Dr. Amina Escobar Basophils/100 WBC (Bld) 0.9 % Normal 0.2-2.0 The [facility] [place] Comment on above: Performed By: #### C BC ####[facility] A[address] [place], [place] [address]Dr. Amina Escobar EO # 0.2 103/ul Normal 0.0-0.7 The [facility] [place] Comment on above: Performed By: #### C BC ####[facility] [place] [address] [place], [place] [address]Dr. Amina Escobar Eosinophils/100 WBC (Bld) 3.6 % Normal 0.9-7.0 The [facility] [place] Comment on above: Performed By: #### C BC ####[facility] [place] [address] [place], [place] [address]Dr. Amina Escobar Erythrocyte distribution width (RBC) [Ratio] 19.5 % Critically high 11.0-15.0 The [facility] [place] Comment on above: Performed By: #### C BC ####[facility] [place] [address] [place], [place] [address]Dr. Amina Escobar Hematocrit (Bld) [Volume fraction] 33.6 % Critically low 42.0-54.0 The [facility] [place] Comment on above: Performed By: #### C BC ####[facility] [place] [address]neeev[address] [place] [address]Dr. Amina Escobar Hemoglobin (Bld) [Mass/Vol] 10.2 g/dL Critically low 14.0-18.0 The [facility] [place] Comment on above: Performed By: #### C BC ####[facility] [place] [address]ce[address]ivjtys[address] [place] [address]Dr. Amina Escobar IG # 0.01 10e3/ul Normal 0.00-0.03 The [facility] [place] Comment on above: Performed By: #### C BC ####[facility] [place] [address] [place], [place] [address]Dr. Amina Escobar IG % 0.2 % Normal 0.0-0.5 The [facility] [place] Comment on above: Performed By: #### C BC ####[facility] [place] [address] [place], [place] [address]Dr. Kandielda Escobar LYMPH # 0.8 103/ul Critically low 1.2-3.8 The [facility] [place] Comment on above: Performed By: #### C BC ####[facility] [place] Z[address] [place], [place] [address]Dr. Amina Escobar Lymphocytes/100 WBC (Bld) 15.2 % Critically low 20.5-60.0 The [facility] [place] Comment on above: Performed By: #### C BC ####[facility] [place] [address] [place], [place] [address]Dr. Amina Escobar MANUAL DIFF REQ NO Normal The [facility] Comment on above: Performed By: #### C BC ####[facility] [address]qhft[address] [place], [place] [address]Dr. Amina Escobar MCH (RBC) [Entitic mass] 26.6 pg Normal 25.9-34.0 The [facility] [place] Comment on above: Performed By: #### C BC ####[facility] [place] [address] [place], [place] [address]Dr. Amina Escobar MCHC (RBC) [Mass/Vol] 30.4 g/dL Normal 29.9-35.2 The [facility] [place] Comment on above: Performed By: #### C BC ####[facility] [place] [address]qbyuf[address] [place] [address]Dr. Amina Escobar MCV (RBC) [Entitic vol] 87.7 fL Normal 80.0-94.0 The [facility] [place] Comment on above: Performed By: #### C BC ####[facility] [place] Xpftkeecep38[address] [place] [address]Dr. Amina Escobar MONO # 0.5 103/ul Normal 0.3-0.8 The [facility] Comment on above: Performed By: #### C BC ####[facility] Ges[address]qagynx9[address] [place] [address]Dr. Amina Escobar Monocytes/100 WBC (Bld) 10.0 % Normal 1.7-12.0 The [facility] Comment on above: Performed By: #### C BC ####[facility] [address] [place], [place] [address]Dr. Amina Escobar NEUT # 3.7 103/ul Normal 1.4-6.5 The [facility] Comment on above: Performed By: #### C BC ####[facility] [address] [place], [place] [address]Dr. Amina Escobar Neutrophils/100 WBC (Bld) 70.1 % Normal 43.0-75.0 The [facility] Comment on above: Performed By: #### C BC ####[facility] [address] [place], [place] [address]Dr. Amina Escobar Platelet mean volume (Bld) [Entitic vol] 10.2 fL Normal 9.5-13.5 The [facility] Comment on above: Performed By: #### C BC ####[facility] [place] X[address]az[address] [place] [address]Dr. Amina Escobar PLT 201 103/ul Normal 150-450 The [facility] [place] Comment on above: Performed By: #### C BC ####[facility] [place] [address]efrvalmrh5[address] [place] [address]Dr. Amina Escobar RBC 3.83 106/ul Critically low 4.70-6.10 The [facility] [place] Comment on above: Performed By: #### C BC ####[facility] [place] [address] [place], [place] [address]Vt. Amina Escobar WBC 5.3 103/ul Normal 4.0-11.0 The [facility] [place] Comment on above: Performed By: #### C BC ####[facility] [place] [address] [place], [place] [address]Ts. Amina Escobar IRONon 12-23-2021 Iron [Mass/Vol] 60.0 ug/dL Critically low 65.0-175.0 The [facility] [place] Comment on above: Performed By: #### I PHIL ####[facility] [place] [address] [place], [place] [address]Jn. 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 This test has not been FDA cleared or approved. This test has been authorized by FDA under an Emergency Use Authorization (EUA). This test has been validated in accordance with the FDA's Guidance Document (Policy for Diagnostics Testing in Laboratories Certified to Perform High Complexity Testing under CLIA prior to Emergency Use Authorization for Coronavirus Disease-2019 during the Public Health Emergency) issued on October 12, 2019. This test is only authorized for the duration of time the declaration that circumstances exist justifying the authorization of the emergency use of in vitro diagnostic tests for detection of SARS-CoV-2 virus and/or diagnosis of COVID-19 infection under section 564(b)(1) of the Act, 21 U.S.C. 360bbb-3(b)(1), unless the authorization is terminated or revoked sooner. PERFORMED BY: [place] [address] PATHOLOGIST [employer] ATTENDANT JAIRO GLYNN M.D. Performed By: #### C OVID 19 [facility] #### [address] CBC COMPLETE BLOOD COUNTon 0 01-01-2021 Erythrocyte distribution width (RBC) [Ratio] 13.7 % Normal 11.5-15.0 [facility] Comment on above: Order Comment: RUL Performed By: #### 3 0323 #### [facility] [address] [place] [address], [facility] Hematocrit (Bld) [Volume fraction] 37.9 % Low 39.0-50.0 [facility] Comment on above: Order Comment: RUL Performed By: #### 3 0323 #### [facility] [address] [place] [address], [facility] Hemoglobin (Bld) [Mass/Vol] 12.2 g/dL Low 13.0-17.0 [facility] Comment on above: Order Comment: RUL Performed By: #### 3 0323 #### [facility] [address] [place] [address], [facility] MCH (RBC) [Entitic mass] 28.9 pg Normal 27.0-33.0 [facility] Comment on above: Order Comment: RUL Performed By: #### 3 0323 #### [facility] [address] [place] [place] [address], [facility] MCHC (RBC) [Mass/Vol] 32.2 g/dL Normal 32.0-35.0 [facility] Comment on above: Order Comment: RUL Performed By: #### 3 0323 #### [facility] [address] [place] [id number], [facility] MCV (RBC) [Entitic vol] 89.8 fL Normal 82.0-98.0 [facility] Comment on above: Order Comment: RUL Performed By: #### 3 0323 #### [facility] [address] [place] [address], [facility] Nucleated RBC/100 WBC (Bld) [Ratio] 0 % Normal 0-0 [facility] Comment on above: Order Comment: RUL Performed By: #### 3 0323 #### [facility] [address] [place] [address], [facility] PLAT CNT 154 10*3/uL Normal 150-400 [facility] Comment on above: Order Comment: RUL Performed By: #### 3 0323 #### [facility] [address] [place] [address], [facility] RBC (Bld) [#/Vol] 4.22 10*6/uL Normal 4.20-5.70 [facility] Comment on above: Order Comment: RUL Performed By: #### 3 0323 #### [facility] [address] [place] [id number], [facility] WBC (Bld) [#/Vol] 7.48 10*3/uL Normal 4.00-10.60 [facility] Comment on above: Order Comment: RUL Performed By: #### 3 0323 #### [facility] [address] [place] [address], [facility] COMP METABOLIC PANELon 01-01 Albumin [Mass/Vol] 3.5 g/dL Normal 3.5-5.7 [facility] Comment on above: Order Comment: No: D o not add to previous draw Performed By: #### 1 69, [address]102 #### [facility] [address] [place] [id number], [facility] ALKALINE PHOSPH 97 IU/L Normal 34-104 [facility] Comment on above: Order Comment: No: D o not add to previous draw Performed By: #### 1 69, 53904 #### [facility] [address] [place] [address], [facility] ALT [Catalytic activity/Vol] 14 U/L Normal 7-52 [facility] Comment on above: Order Comment: No: D o not add to previous draw Performed By: #### 1 0, 51429 #### [facility] [address] [place] [address], [place] AST [Catalytic activity/Vol] 14 U/L Normal 13-39 [facility] Comment on above: Order Comment: No: D o not add to previous draw Performed By: #### 1 0, 22331 #### [facility] [address] [place] [address], [place] Bilirubin [Mass/Vol] 1.0 mg/dL Normal 0.3-1.0 [facility] Comment on above: Order Comment: No: D o not add to previous draw Performed By: #### 1 0, 67444 #### [facility] [address] [place] [address], [place] Calcium [Mass/Vol] 8.8 mg/dL Normal 8.6-10.3 [facility] Comment on above: Order Comment: No: D o not add to previous draw Performed By: #### 1 0, 12179 #### [facility] [address] [place] [address], [place] Chloride [Moles/Vol] 104 mmol/L Normal 98-107 [facility] Comment on above: Order Comment: No: D o not add to previous draw Performed By: #### 1 0, 58173 #### [facility] [address] [place] [address], [place] CO2 [Moles/Vol] 26 mmol/L Normal 21-31 [facility] Comment on above: Order Comment: No: D o not add to previous draw Performed By: #### 1 0, 51597 #### [facility] [address] [place] [address], [place] Creatinine [Mass/Vol] 0.94 mg/dL Normal 0.70-1.30 [facility] Comment on above: Order Comment: No: D o not add to previous draw Performed By: #### 1 0, 10186 #### [facility] [address] [place] [address], [place] GFR/1.73 sq M.predicted among blacks MDRD (S/P/Bld) [Vol rate/Area] mL/min/{1.73_m2} Normal >60 [facility] Comment on above: Order Comment: No: D o not add to previous draw Result Comment: Calc ulation may not be valid for patients over 70 years Performed By: #### 1 0, 29245 #### [facility] [address] [place] [address], [place] GFR/1.73 sq M.predicted among non-blacks MDRD (S/P/Bld) [Vol rate/Area] mL/min/{1.73_m2} Normal >60 [facility] Comment on above: Order Comment: No: D o not add to previous draw Result Comment: Calc ulation may not be valid for patients over 70 years Performed By: #### 1 0, 15430 #### [facility] [address] [place] [address], [place] Glucose [Mass/Vol] 107 mg/dL High 70-100 [facility] Comment on above: Order Comment: No: D o not add to previous draw Performed By: #### 1 0, 71620 #### [facility] [address] [place] [address], [place] Potassium [Moles/Vol] 4.0 mmol/L Normal 3.5-5.1 [facility] Comment on above: Order Comment: No: D o not add to previous draw Performed By: #### 1 0, 53272 #### [facility] [address] [place] [address], [place] Protein [Mass/Vol] 6.3 g/dL Normal 6.0-8.3 [facility] Comment on above: Order Comment: No: D o not add to previous draw Performed By: #### 1 0, 71523 #### [facility] [address] [place] [address], [place] Sodium [Moles/Vol] 135 mmol/L Low 136-145 [facility] Comment on above: Order Comment: No: D o not add to previous draw Performed By: #### 1 0070, 12805 #### [facility] [address] Urea nitrogen [Mass/Vol] 18 mg/dL Normal 7-25 [facility] Comment on above: Order Comment: No: D o not add to previous draw Performed By: #### 1 0070, 45612 #### [facility] [address] MAGNESIUM BLOODon 01-01-2021 Magnesium [Mass/Vol] 1.6 mg/dL Low 1.9-2.7 [facility] Comment on above: Order Comment: No: D o not add to previous draw Performed By: #### 1 0, 55665 #### [facility] [address] Cardiovascular Lab Reporton 12-31-2020 Cardiovascular Lab Report [facility] Patient Name: Juan Barcenas MR #: [id number] [facility] Physician: Sissy Schneider M.D. Department of Service Date: 12/31/2020 Medicine Birthdate: 1935 Division of Room #: 3AB 811323 Cardiology Adult Cardiovascular Services [place] [address] Cardiovascular Laboratory Report INDICATION: The patient is an 85-year-old man with prior history of bypass surgery in the past and dual-chamber pacemaker. He has severe symptomatic aortic valve stenosis. He was evaluated in Cardiology and Cardiothoracic Surgery Clinics and referred for TAVR. PROCEDURE: 1. Successful transcatheter aortic valve replacement using a Minerva Ultra 29 mm transcatheter valve deployed at nominal volume -2 mL via percutaneous transfemoral access. 2. Aortic root angiography. 3. Placement of a temporary pacemaker wire. 4. Limited right and left common femoral angiography. 5. Preclosure in the right common femoral artery. 6. Angio-Seal closure in the left common femoral artery. 7. Access into the right and left common femoral arteries and left common femoral vein under ultrasound guidance. INTERVENTIONAL CARDIOLOGY PROCESS SAFETY ENGINEER: Sissy Schneider M.D. CARDIOTHORACIC SURGERY PROCESS SAFETY ENGINEER: Douglas De La Rosa MD. CONCRETE FORM SETTER AND FINISHER: Rashad Rajput MD. METHODS: The procedure was explained to the patient with risks and benefits. He signed informed consent. He was brought to equipment operator/laborer/supervisor in a fasting state. Both groin areas were prepped and draped in usual fashion. The procedure was performed in the equipment operator/laborer/supervisor under conscious sedation. Using ultrasound guidance, access was obtained in the right and left common femoral arteries and after inner cannula angiography confirmed adequate placement, access was upsized to a 6-Mauritian x 11 cm sheath on both sited. Access was obtained using same technique in the left common femoral vein and a 6-Mauritian x 11 cm sheath was placed. Preclosure in the right common femoral artery was performed using 2 crossing 6-Mauritian ProGlide devices and the access was upsized to a 10-Mauritian x 11 cm sheath. A 6-Mauritian angled pigtail catheter was advanced through the left common femoral access into the ascending aorta and aortic root angiography was performed for identification of the coplanar view. A balloon tipped temporary pacemaker wire was then advanced to the right ventricular apex and adequate capture was confirmed. Heparin was administered intravenously and therapeutic ACT confirmed during the rest of the procedure. The right common femoral access was then upsized using a Lunderquist wire to the 16-Mauritian Murillo eSheath, which was secured in place. A 6-Mauritian AL1 diagnostic catheter was advanced and using a Glidewire, the aortic valve was crossed and the catheter was then exchanged over wire to a 6-Mauritian angled pigtail catheter, which was used to place an exchange length Amplatz extra stiff wire in the left ventricle. The Murillo Minerva Ultra 29 mm valve was prepped at nominal volume -2 mL and was advanced across the council aortic valve and under rapid pacing at 180 beats per minute the valve was deployed at a final position 80/20 aortic/ventricular. Echocardiogram confirmed adequate position of the valve with absence of any significant paravalvular leak and no significant gradient and no pericardial effusion. Aortic root angiography confirmed no significant paravalvular leak. A pigtail catheter was then advanced to the left ventricle and hemodynamics performed confirming absence of gradient across the valve. Catheters were removed. Protamine 50 mg was administered. The previously placed Perclose sutures were tightened in the right common femoral artery achieving good hemostasis. An Angio-Seal device was used for hemostasis in the left common femoral artery. Manual compression was used for hemostasis in the left common femoral vein. The patient tolerated the procedure well. He will be transferred back to his hospital bed. TOTAL FLUORO TIME: 15.5 minutes. TOTAL AIR KERMA: 373 mGy. TOTAL CONTRAST VOLUME: 60 mL. RECOMMENDATIONS: 1. Continue monitoring in the hospital. 2. The patient will obtain an echocardiogram the following morning. 3. Resume Xarelto in 1 to 2 days and continue aspirin therapy. 4. Endocarditis prophylaxis for life given transcatheter aortic valve replacement. 5. Follow up in Cardiology and Cardiothoracic Surgery Clinics in 1 month with echocardiogram. Electronically Signed by: Sissy Schneider M.D. 01/05/2021 09:56 A Sissy Schneider M.D. Date Dict: 12/31/2020/12:29 P/Sissy Schneider M.D. Date Trans: 12/31/2020 04:01 P/monster [id number] cc: Tony Burgos M.D. [address] [place] [id number] Radha Nazario, YANELIS, PAINTER CHASSIS U T M C, D (more content not included)... Normal [facility] Operative Reporton Operative Report MR#: [id number] [facility] Pt. Name: Juan Barcenas Room #: 3AB [id number] Discharge Date: Birthdate: 1935 OPERATIVE REPORT DATE OF SURGERY: 12/31/2020 SURGEON: Douglas De La Rosa MD PREOPERATIVE DIAGNOSES: Severe aortic stenosis. Previous coronary artery bypass grafting. POSTOPERATIVE DIAGNOSES: Severe aortic stenosis. Previous coronary artery bypass grafting. OPERATION: Percutaneous transfemoral transcatheter aortic valve replacement with 29 mm Minerva Ultra valve. CO-SURGEON: Sissy Schneider M.D. CATCHER FILTER TIP: Dr. Rajput. ANESTHESIA: MAC. INDICATIONS: This is an 85-year-old male with previous coronary artery bypass grafting and severe aortic stenosis. He was taken to the operating room for the above procedures. He also had some pulmonary infection chronically that was treated on antibiotics and recovered significantly from it. PROCEDURE IN DETAIL: The patient was brought to the operating room and prepped and draped in the routine fashion. After 1% lidocaine was infiltrated in both groins, percutaneous access was achieved at both groins with ultrasound guidance. ProGlide sutures were preloaded in the right femoral artery and the sheath was upgraded to 8-Mauritian sheath. Through the left groin sheath, a pigtail catheter was inserted in the ascending aorta. A temporaryp pacemaker was inserted through the left femoral vein and tested for later use. At this time, the patient was heparinized and right femoral arterial sheath was upgraded over Lunderquist wire to a 16-Mauritian sheath. An AL4 catheter inserted in the ascending aorta through which a straight wire was used to cross the aortic valve and a pigtail catheter inserted in the left ventricle through which an Extra Stiff Amplatz wire inserted in the left ventricle. The patient had been heparinized before the sheath was introduced and then under rapid ventricular pacing, a 29 mm Minerva S Ultra valve with 2 mL less contrast was deployed successfully and the valve seated quite well. There was no paravalvular leak. Minimal central jet. There was no pressure gradients upon measuring with a pigtail catheter. The delivery system was removed and the temporary pacemaker was removed. The left femoral arterial sheath was removed and closed with ProGlide stitches. The right femoral arterial sheath was removed and the area closed with ProGlide stitches. Protamine was given. Dermabond was applied. The patient tolerated the procedure well, was taken to the ICU and taken to the recovery room in a stable condition. Electronically Signed by: Douglas De La Rosa MD 01/10/2021 12:55 A Douglas De La Rosa MD Date Dict: 12/31/2020/01:03 P/Douglas De La Rosa MD Date Trans: 12/31/2020 05:02 P/monster [id number] cc: Tony Burgos M.D. [address] [facility], [address] [facility] [phone] Radha Nazario, MSN, PAINTER [facility], Dept. Of Surgery Mailstop [address] [facility] [address] Normal [facility] TYPE AND SCREENon 12-31-2020 ABO INTERPRETATION O Normal [facility] Comment on above: Performed By: #### 3 [id number] #### [facility] [address] [place] [address], [facility] RH INTERPRETATION Positive Normal [facility] Comment on above: Performed By: #### 3 [id number] #### [facility] [address] [place] [address], [facility] BASIC METABOLIC PANELon 11-09 Calcium [Mass/Vol] 9.2 mg/dL Normal 8.6-10.3 [facility] Comment on above: Performed By: #### 3 [id number] #### [facility] [address] [place] [address], [facility] Chloride [Moles/Vol] 106 mmol/L Normal 98-107 [facility] Comment on above: Performed By: #### 3 [id number] #### [facility] [address] [place] [address], [place] CO2 [Moles/Vol] 26 mmol/L Normal 21-31 [facility] Comment on above: Performed By: #### 3 [id number] #### [facility] [address] [place] [address], [facility] Creatinine [Mass/Vol] 1.02 mg/dL Normal 0.70-1.30 [facility] Comment on above: Performed By: #### 3 [id number] #### [facility] [address] [place] [address], [place] GFR/1.73 sq M.predicted among blacks MDRD (S/P/Bld) [Vol rate/Area] mL/min/{1.73_m2} Normal >60 [facility] Comment on above: Result Comment: Calc ulation may not be valid for patients over 70 years Performed By: #### 3 [id number] #### [facility] [address] [place] [address], [facility] GFR/1.73 sq M.predicted among non-blacks MDRD (S/P/Bld) [Vol rate/Area] mL/min/{1.73_m2} Normal >60 [facility] Comment on above: Result Comment: Calc ulation may not be valid for patients over 70 years Performed By: #### 3 [id number] #### [facility] [address] [place] [address], [facility] Glucose [Mass/Vol] 83 mg/dL Normal 70-100 [facility] Comment on above: Performed By: #### 3 [id number] #### [facility] [address] [place] [address], [facility] Potassium [Moles/Vol] 4.5 mmol/L Normal 3.5-5.1 [facility] Comment on above: Performed By: #### 3 [id number] #### [facility] [address] [place] [address], [facility] Sodium [Moles/Vol] 139 mmol/L Normal 136-145 [facility] Comment on above: Performed By: #### 3 [id number] #### [facility] [address] [place] [address], [facility] Urea nitrogen [Mass/Vol] 22 mg/dL Normal 7-25 [facility] Comment on above: Performed By: #### 3 [id number] #### [facility] [address] [place] [address], [facility] BNP (B-TYPE NATRIURETIC PEPT MANUEL)on 11-19-2020 Natriuretic peptide B (Bld) [Mass/Vol] 168 pg/mL High 0-100 [facility] Comment on above: Result Comment: Give n the appropriate clinical setting a BNP result of >100 pg/mL indicates congestive heart failure. Performed By: #### 8 [id number] #### [facility] [address] CBC COMPLETE BLOOD COUNTon 11-19-2020 Erythrocyte distribution width (RBC) [Ratio] 14.5 % Normal 11.5-15.0 [facility] Comment on above: Performed By: #### 5 [id number] #### [facility] [address] [place] [address], [facility] Hematocrit (Bld) [Volume fraction] 38.6 % Low 39.0-50.0 [facility] Comment on above: Performed By: #### 5 [id number] #### [facility] [address] [place] [address], [facility] Hemoglobin (Bld) [Mass/Vol] 12.2 g/dL Low 13.0-17.0 [facility] Comment on above: Performed By: #### 5 [id number] #### [facility] [address] [place] [address], [facility] MCH (RBC) [Entitic mass] 29.0 pg Normal 27.0-33.0 [facility] Comment on above: Performed By: #### 5 [id number] #### [facility] [address] [place] [address], [facility] MCHC (RBC) [Mass/Vol] 31.6 g/dL Low 32.0-35.0 [facility] Comment on above: Performed By: #### 5 [id number] #### [facility] [address] [place] [id number], [facility] MCV (RBC) [Entitic vol] 91.7 fL Normal 82.0-98.0 [facility] Comment on above: Performed By: #### 5 [id number] #### [facility] [address] [place] [id number], [facility] Nucleated RBC/100 WBC (Bld) [Ratio] 0 % Normal 0-0 [facility] Comment on above: Performed By: #### 5 [id number] #### [facility] [address] [facility]. [address] PLAT CNT 265 10*3/uL Normal 150-400 [facility] Comment on above: Performed By: #### 5 0608 #### [facility] [address] [facility]. [address] RBC (Bld) [#/Vol] 4.21 10*6/uL Normal 4.20-5.70 [facility] Comment on above: Performed By: #### 5 [id number] #### [facility] [address] [facility] [place] [address], [facility] WBC (Bld) [#/Vol] 6.97 10*3/uL Normal 4.00-10.60 [facility] Comment on above: Performed By: #### 5 [id number] #### [facility] [address] CHEST AND LATERALon 11-20-19 21 CHEST AND LATERAL [facility] Department of Radiology [address] [place] [phone] Patient Name: JUAN BARCENAS : 1935 Sex: M Age: Race: White Pt. Location: 30 Patient Status: O Ordered Date: 11/18/2020 4:20:00 PM Completed Date: 11/19/2020 11:30 AM Requesting Provider: SISSY SCHNEIDER V Attending Provider: SISSY SCHNEIDER V Report Copy To: TONY BURGOS Signs & Symptoms: Z95.0 Presence of cardiac pacemaker I10 History: Caitlyn Comments: , PA and lateral Exam: CHEST AND LATERAL CHEST AND LATERAL 11/19/2020 11:30 AM CLINICAL INDICATIONS: Z95.0 Presence of cardiac pacemaker I10 TECHNOLOGIST COMMENTS: patient complains of SOB for 1 month, progressively getting worse. HX of pneumonia QUESTION FOR THE RADIOLOGIST: , PA and lateral PROTOCOL: AP(PA) and Lateral views were obtained. COMPARISON: 11/05/2020 FINDINGS: Atelectasis and apparent infiltrate persists in the right upper lobe but appears somewhat improved since the previous study. No new pulmonary or pleural abnormalities displayed. Evidence of previous open heart surgery and the transvenous pacemaker appear unchanged. IMPRESSION: Persistent volume loss and apparent infiltrate in the right upper lobe but with some improvement since the previous study of late October. No new abnormalities Electronically signed: Mandeep Alvarado. Transcribed by: [email or web address], User Resident: Electronically Signed by: MANDEEP ALVARADO @ 11/19/2020 02:46 PM Normal [facility] Comment on above: Order Comment: , PA and lateral PROCALCITONINon 11-19-2020 PROCALCITONIN 0.05 ng/mL Normal 0.00-0.10 [facility] Comment on above: Result Comment: Susp ected Lower Respiratory Tract Infection: 0.1-0.25ng/mL- Low likelihood for bacterial infection;Antibiotics discouraged.* >0.25ng/mL- Increased likelihood bacterial infection;Antibiotics encouraged. Suspected Sepsis: Strongly consider initiating antibiotics in all unstable patients. 0.1-0.5ng/mL- Low likelihood for sepsis; Antibiotics discouraged.* >0.5ng/mL- Increased likelihood sepsis; Antibiotics encouraged. >2.0ng/mL- High risk of sepsis/septic shock; Antibiotics strongly encouraged. *Recommend retesting PCT within 6-12hours if clinically indicated and initial PCT<0.5ng/mL Performed By: #### 3 [id number] #### [facility] [address] *AFB CULTUREon 11-05-2020 *AFB CULTURE Clinical Report: (D) Specimen/Source: TISSUE/LUNG BIOPSY Collected: 11/05/2020 15:40 Status: Final Last Updated: 12/18/2020 14:00 (1) RUL AFB (Final) No Acid Fast Bacilli Seen CULT RES (Final) No growth after 42 days of incubation Normal [facility] Comment on above: Order Comment: RUL Performed By: #### 3 [id number] #### [facility] [address] *FUNGAL CULTUREon 11-05-2020 *FUNGAL CULTURE Clinical Report: (D) Specimen/Source: TISSUE/LUNG BIOPSY Collected: 11/05/2020 15:40 Status: Final Last Updated: 12/10/2020 08:21 (1) RUL FS (Final) No Yeast or Fungal Elements Seen CULT RES (Final) Culture negative for fungus Normal [facility] Comment on above: Order Comment: RUL Performed By: #### 3 [id number] #### [facility] [address] *TISSUE CULTUREon 11-05-2020 *TISSUE CULTURE Clinical Report: (D) Specimen/Source: TISSUE/LUNG BIOPSY Collected: 11/05/2020 15:40 Status: Final Last Updated: 11/10/2020 10:46 (1) RUL GRAM (Final) No Polys Seen Rare Gram Positive Cocci In Chains CULT RES (Final) No Growth Day 5 Normal [facility] Comment on above: Order Comment: RUL Performed By: #### 5 [id number] #### [address] FLUORO FOR BRONCHOSCOPYon FLUORO FOR BRONCHOSCOPY [facility] Department of Radiology [address] [place] [phone] Patient Name: JUAN BARCENAS : 1935 Sex: M Age: Race: White Pt. Location: OUTP Patient Status: Ordered Date: 11/05/2020 2:00:00 PM Completed Date: 11/05/2020 04:30 PM Requesting Provider: NICOLE GUERRERO Attending Provider: NICOLE GUERRERO Report Copy To: Signs & Symptoms: intra-op bronchoscopy, ebus History: Comments: intra-op bronchoscopy, ebus Exam: FLUORO FOR BRONCHOSCOPY FLUORO FOR BRONCHOSCOPY 11/05/2020 4:30 PM CLINICAL INDICATIONS: intra-op bronchoscopy, ebus TECHNOLOGIST COMMENTS: intra-op bronchoscopy, ebus with Dr. Guerrero. FL time 3.11 minutes. 17.07 mGy. # of images 3 + Dose. HFW IMPRESSION: 3.11) of fluoroscopy was provided for Dr. Guerrero for a bronchoscopy procedure. 3 of fluoroscopic images were provided. Electronically signed: Milvia Mack. Transcribed by: [email or web address], User Resident: Electronically Signed by: MILVIA Owusu CONNIE @ 11/06/2020 11:17 AM Normal [facility] Comment on above: Order Comment: SANTINO Operative Reporton Operative Report MR#: [id number] S [facility] Pt. Name: Juan Barcenas Room #: 0C Discharge Date: Birthdate: 1935 OPERATIVE REPORT DATE OF SURGERY: 11/05/2020 SURGEON: Nicole Guerrero MD EBUS-TBNA, fluoroscopic guided transbronchial biopsies and BAL procedure note Patient: Juan Barcenas Date: 11/05/2020 Indication: Diagnostic/therapeutic bronchoscopy Procedure District Superintendent: Shelbi Garrido MD Supervising Attending: Nicole Guerrero MD Preoperative diagnosis: Right upper lobe lung lesion and mediastinal lymphadenopathy Postoperative diagnosis: Right upper lobe lung lesion and mediastinal lymphadenopathy Procedure type: EBUS bronchoscopy with FNA and fluoroscopic guided transbronchial biopsies and BAL Anesthesia: 1% lidocaine 8 cc Sedation: Please see anesthesia report Support: Video support, BP monitor, telemetry, pulse oximetry Timeout: A timeout was called and the correct patient, procedure, and site was confirmed using previously obtained demographic graphic data. Procedure Summary: The patient was adequately sedated as above. The EBUS bronchoscope was passed through the endotracheal tube to the trachea which was normal in appearance. The bronchoscope was then advanced to the level of the chikis which was noted to be sharp, mobile, and normal in appearance. The chikis and bilateral mainstem bronchi were locally anesthetized with 1% lidocaine. Lymph node surveillance was initiated and biopsies were taken at station 4R x4 which was 6 mm in size, followed by station 7 x6 which was 18 mm in size, and station 11 R x4 which was 6 mm in size. The EBUS bronchoscope was then withdrawn and exchanged for the flexible fiberoptic bronchoscope. Examination of the left bronchial tree found normal patent airways with normal mucosa, no endobronchial lesions, no intrinsic narrowing, or extrinsic compression in the apicoposterior (LB1+2) and anterior segments (LB3) of the left upper lobe, the superior (LB4) and inferior (LB5) segments of the lingula, and superior (LB6) and basilar segments (LB7-10) of the left lower lobe. There were no mucopurulent secretions noted. Examination of the right bronchial tree found normal patent airways with normal mucosa, no endobronchial lesions, no intrinsic narrowing, or extrinsic compression in the apical (RB1), posterior (RB2), and anterior (RB3) segments of the right upper lobe, the lateral (RB4) and medial (RB5) segments of the right middle lobe, and superior (RB6) and basilar (RB7-10) segments of the right lower lobe. There were no mucopurulent secretions noted. The bronchoscope was then wedged in the right upper lobe and a BAL was obtained. Using fluoroscopic guidance 10 transbronchial biopsies were obtained from the right upper lobe The bronchoscope was removed and the procedure ended. Specimens Collected: FNA station 4R x4, FNA station 7x6, FNA station 11 R x4, BAL right upper lobe, transbronchial biopsy x10 right upper lobe Complications: None Impression: Right upper lobe lung lesion and mediastinal lymphadenopathy Electronically Signed by: Nicole Guerrero MD 11/05/2020 06:17 P Nicole Guerrero MD I was present for the entire procedure. Date Dict: 11/05/2020/04:12 P/Shelbi Garrido MD Date Trans: 11/05/2020 04:12 P/ [id number] cc: Tony Burgos M.D. [address] [place] [phone] Normal [facility] POC GLUCOSE LABon 11-05-2020 Glucose [Mass/Vol] 90 mg/dL Normal 70-100 [facility] Comment on above: Performed By: #### 3 0323 #### [facility] [address] [place] [id number] [place] [address] POC SARS COV2 ANTIGEN NEGATI VEon 11-05-2020 POC SARS COV2 ANTIGEN NEG Negative Normal NEGATIVE [facility] Comment on above: Result Comment: Nega tive Results are presumptive and confirmation with a molecular assay, if necessary, for patient management may be performed. Negative results do not rule out SARS-CoV-2 infection and should not be used as the sole basis for treatment or patient management decisions, including infection control decisions. Negative results should be considered in the context of a patient?s recent exposures, history and the presence of clinical signs and symptoms consistent with COVID-19. The [facility] COVID-19 Antigen test is a lateral flow immunochromatographic assay intended for the qualitative detection of the nucleocapsid protein antigen from SARS-CoV-2 in nasopharyngeal or anterior nasal swab specimens directly collected from individuals suspected of COVID-19 by their healthcare provider within five days of symptom onset. Testing is limited to laboratories certified under the Clinical Laboratory Improvement Amendments of 1988 (CLIA), 42 U.S.C. ???262a, that meet the requirements to perform moderate, high or waved complexity tests. This test is authorized for use at the Point of Care (POC), i.e., in patient care settings operating under a CLIA Certificate of Waiver, Certificate of Compliance, or Certificate of Accreditation. Performed By: #### 3 1944 #### [address] PORTABLE CHEST 1 VIEWon 10-11 PORTABLE CHEST 1 VIEW [facility] Department of Radiology [address] [place] [phone] Patient Name: JUAN BARCENAS : 1935 Sex: M Age: Race: White Pt. Location: OUT Patient Status: O Ordered Date: 11/05/2020 4:00:00 PM Completed Date: 11/05/2020 05:33 PM Requesting Provider: SHELBI GARRIDO Attending Provider: NICOLE GUERRERO Report Copy To: Signs & Symptoms: post bronch Evaluation History: Comments: evaluate for Pneumothorax Exam: PORTABLE CHEST 1 VIEW PORTABLE CHEST 1 VIEW 11/05/2020 5:33 PM CLINICAL INDICATIONS: post bronch Evaluation TECHNOLOGIST COMMENTS: post bronch QUESTION FOR THE RADIOLOGIST: evaluate for Pneumothorax PROTOCOL: AP(PA) view was obtained. COMPARISON: 07/29/2013 Impression: 1. There is dense opacity in the right apex representing mass or infiltrate. History not provided. There are no effusions or pneumothorax. Electronically signed: Gilberto Payton. Transcribed by: [email or web address], User Resident: Electronically Signed by: GILBERTO PAYTON @ 11/05/2020 05:34 PM Normal [facility] Comment on above: Order Comment: evalu ate for Pneumothorax *AFB CULTUREon 10-29-2020 *AFB CULTURE Clinical Report: (D) Specimen/Source: RESPIRATORY/BRONCHEAL ALVEOLAR LAVAGE Collected: 10/29/2020 15:35 Status: Final Last Updated: 12/18/2020 14:00 (1) RUL BAL AFB (Final) No Acid Fast Bacilli Seen CULT RES (Final) No growth after 42 days of incubation Normal [facility] Comment on above: Order Comment: RUL B AL Performed By: #### 5 [id number] #### [facility] [address] *FUNGAL CULTUREon 10-29-2020 *FUNGAL CULTURE Clinical Report: (D) Specimen/Source: RESPIRATORY/BRONCHEAL ALVEOLAR LAVAGE Collected: 10/29/2020 15:35 Status: Final Last Updated: 11/12/2020 14:16 (1) RUL BAL FS (Final) No Yeast or Fungal Elements Seen ISO (Final) Radha albicans Presumptive Normal [facility] Comment on above: Order Comment: RUL B AL Performed By: #### 5 [id number] #### [facility] [address] [place], [place] [address] *RESPIRATORY CULTUREon 10-29 *RESPIRATORY CULTURE Clinical Report: (D ) Specimen/Source: RESPIRATORY/BRONCHEAL ALVEOLAR LAVAGE Collected: 10/29/2020 15:35 Status: Final Last Updated: 11/09/2020 06:44 (1) RUL BAL GRAM (Final) Few Polys Rare Ciliated Columnar Epithelial Cells No Bacteria Seen CYTOSPUN (Final) This Gram Stain was done on a cytocentrifuged specimen ISO (Final) Colonies Consistent with Upper Respiratory Nerissa >10,000 Cfu/mL Normal [facility] Comment on above: Order Comment: RUL Performed By: #### 3 0323 #### [id number] [place] [address] CTA ABDOMEN AND PELVISon CTA ABDOMEN AND PELVIS [facility] Department of Radiology [address] [place] [phone] Patient Name: JUAN BARCENAS : 1935 Sex: M Age: Race: White Pt. Location: Patient Status: D Ordered Date: 10/15/2020 10:55:00 AM Completed Date: 10/22/2020 02:56 PM Requesting Provider: SISSY SCHNEIDER V Attending Provider: SISSY SCHNEIDER V Report Copy To: TONY BURGOS Signs & Symptoms: I35.0 Nonrheumatic aortic (valve) stenosis I10 History: [place]aitlyn medicare [place] [address] cta abdomen pelvis / I35.0 med nec passed *kw Comments: (TAVR) Protocol Exam: CTA ABDOMEN AND PELVIS CTA ABDOMEN AND PELVIS 10/22/2020 2:56 PM SIGNS AND SYMPTOMS: I35.0 Nonrheumatic aortic (valve) stenosis I10 TECHNOLOGIST COMMENTS: TAVR QUESTION FOR THE RADIOLOGIST: (TAVR) Protocol PROTOCOL: Axial CT angiography images were obtained with IV contrast. CONTRAST: TECHNIQUE: Multidetector CT angiography axial slices of the abdomen and pelvis were obtained with IV contrast. Multiplanar reformats, MIP, and volume rendered 3-D images were generated on a separate workstation and reviewed to further define anatomy and possible pathology. Appropriate CT dose lowering techniques were utilized. COMPARISON: None. FINDINGS: Lower Chest: Please refer to chest CT report from the same day. ABDOMEN: Liver: Multiple small low-attenuation lesions in the liver likely representing multiple hepatic cysts. Bile Ducts: Normal caliber. Gallbladder: Suggestion of small layering gallstones at the neck of the gallbladder. Pancreas: Within normal limits. Spleen: Small calcified granulomas in the spleen. Adrenals: Within normal limits. Kidneys: Within normal limits. Pelvis: Reproductive Organs: Slightly prominent prostate gland indenting the bladder base likely representing BPH. Ureters: Within normal limits. Bladder: Within normal limits. Bowel: Normal appearing small bowel loops with uncomplicated diverticulosis in the splenic flexure. Mesenteric Lymph Nodes: No enlarged mesenteric lymph nodes. Peritoneum: No ascites or free air, no fluid collection. Vessels: Atherosclerotic changes with significant atherosclerotic calcified and noncalcified plaques seen slightly narrowing the aorta and iliac vessels.. Retroperitoneum: Within normal limits. Abdominal Wall: Umbilical hernia containing only omental fat. Also left inguinal hernia containing only omental fat. Bones: Bony spurring in thoracic and lumbar spine consistent was moderate spondylosis. Evidence of bilateral L5 spondylolysis and grade 1 spondylolisthesis with associated disc space narrowing. Large Schmorl's node is seen at the superior endplate of L4. IMPRESSION: Suggestion of small layering gallstones at the neck of the gallbladder and calcified granulomas in the spleen. Prominent prostate gland indenting bladder base possibly representing BPH for clinical correlation. Uncomplicated colonic diverticulosis. Significant atherosclerotic disease involving the aorta and iliac vessels. Evidence of L5 bilateral spondylolysis and grade 1 spondylolisthesis with lower lumbar spondylosis seen All CT scans at this facility use dose modulation, iterative reconstruction, and/or weight based dosing when appropriate to reduce radiation dose to as low as reasonably achievable Electronically signed: Dav Lopez. Transcribed by: [email or web address], User Resident: Electronically Signed by: DAV LOPEZ @ 10/24/2020 09:06 AM Normal [facility] Comment on above: Order Comment: (TAVR ) Protocol CTA CHESTon 10-22-2020 CTA CHEST [facility] Department of Radiology [address] [place] [phone] Patient Name: JUAN BARCENAS : 1935 Sex: M Age: Race: White Pt. Location: 30 Patient Status: D Ordered Date: 10/15/2020 10:55:00 AM Completed Date: 10/22/2020 02:56 PM Requesting Provider: SISSY SCHNEIDER V Attending Provider: SISSY SCHNEIDER V Report Copy To: TONY BURGOS Signs & Symptoms: I35.0 Nonrheumatic aortic (valve) stenosis I10 History: Caitlyn medicare no pc required cta chest 65652/I35.0 med nec passed *kw Comments: EKG gated-TAVR protocol Exam: CTA CHEST CTA CHEST 10/22/2020 2:56 PM CLINICAL INDICATIONS: I35.0 Nonrheumatic aortic (valve) stenosis I10 TECHNOLOGIST COMMENTS: TAVR QUESTIONS PER RADIOLOGIST: EKG gated-TAVR protocol PROTOCOL: Axial CT angiography images were obtained with IV contrast. CONTRAST: Contrast: OMNIPAQUE 350 (LOCM), 125 milliliter, Intravenous TECHNIQUE: Multidetector CT axial slices of the chest were obtained with IV contrast. Multiplanar reformats were performed and viewed on a separate workstation and reviewed to further define anatomy and possible pathology. All CT scans at this facility use dose modulation, iterative reconstruction, and/or weight based dosing when appropriate to reduce radiation dose to as low as reasonably achievable. COMPARISON: None. FINDINGS: Lower neck: Thyroid gland within normal limits, no supraclavicle adenopathy. Vessels: Pulmonary arteries appeared grossly unremarkable. Mild atherosclerotic changes in the aorta. Moderate to severe atherosclerotic calcifications in the coronary arteries. Mediastinum and Keila: Calcified left hilar granulomatous lymph nodes. Heart: Normal size. No pericardial effusion. Pacer wires are seen coursing within the right heart with associated mild metallic artifacts. Airways: Within normal limits Lungs: Bilateral upper lobe significant emphysematous changes. There is also large right upper lobe consolidation was air bronchogram worrisome for lobar pneumonia. One CM calcified adenoma in the inferior lingula. Pleura: Small right pleural effusion. Chest Wall: Left subclavian pacemaker is seen in place. Upper Abdomen: Please refer to abdomen CT report for full details. Bones: Significant bony spurring in the thoracic spine consistent with moderate spondylosis. Sternotomy wires from prior cardiac procedure and Evidence of prior CABG Calcium scoring: Gated noncontrast part of the examination revealed significant coarse and dystrophic calcifications involving the aortic valve cusps with total calcium scoring of 5234. Findings are consistent was grade 4 valve calcification. TAVR measurements: 3-D volume rendered image of the proximal aorta and coronary artery origin is obtained. Localization of the left, right and noncoronary cusps in the axial plane. The esophagus was also localized in the axial plane and 3-D reconstruction. 3 cusped view, anterior view and no MEDICAL ADMINISTRATIVE SPECIALIST-CAU view are obtained in 3-D. The annulus measures 33.3 x 25.6 mm. The surface area is 6.21 sq cm and the perimeter is 93.1 mm. The height of the left coronary artery is 23 mm and the height of the right coronary artery is 23.3 mm from the annulus. Diameter of the sinotubular junction is 30.7 mm. Diameter of the ascending aorta is 30.0 mm. Diameter of the suprarenal abdominal aorta is 24.2 mm and the infra renal segment is 17.7 mm due to presence of atheromatous cirrhotic plaques and calcification. Diameter of the right common iliac artery is 8.13 mm, diameter of the right external iliac artery is 8.13 mm. Diameter of the right femoral artery is 7.99 mm. Diameter of the left common iliac artery is 8.54 mm, diameter of the left external iliac artery is 9.35 mm and diameter of the left femoral artery is 8.48 mm. 3-D volume rendered images revealed mild tortuosity of the right common and external iliac arteries and mild to moderate tortuosity on the left side. IMPRESSION: Significant coarse and dystrophic calcifications at the aortic cusps with total calcium scoring of 5234 and type IV valve calcifications TAVR measurements as described above. Calcified granuloma in the leg length calcified left hilar and adenomatous lymph node. Significant upper lobe emphysematous changes and right upper lobe consolidation was air bronchogram suggesting pneumonia. Thoracic spondylosis. small right pleural effusion and left subclavian pacer in place. Electronically signed: Dav Lopez. Transcribed by: [email or web address], User Resident: Electronically Signed by: DAV LOPEZ @ 10/24/ (more content not included)... Normal [facility] Comment on above: Order Comment: EKG g ated-TAVR protocol Cardiovascular Lab Reporton 10-18-2020 Cardiovascular Lab Report [facility] Patient Name: Juan Barcenas MR #: [id number] [facility] Physician: Sissy Schneider M.D. Department of Service Date: 10/17/2020 Medicine Birthdate: 1935 Division of Room #: Cardiology Adult Cardiovascular Services [place] [address] Cardiovascular Laboratory Report INDICATION: The patient is an 85-year-old man with history of severe aortic valve stenosis. He has prior history of bypass surgery in the past. He recently was admitted to the [facility] with decompensated heart failure and pneumonia. He was evaluated in Cardiology Clinic and was referred for cardiac catheterization in preparation for transcatheter aortic valve replacement. PROCEDURES: 1. Right heart catheterization. 2. Bilateral selective coronary angiography. 3. Graft angiography. 4. Limited right common femoral angiography. METHODS: Procedure was explained to the patient with risks and benefits. He signed consent. He was brought to equipment operator/laborer/supervisor in a fasting state. The right groin area was prepped and draped in usual fashion. Using micropuncture technique, the right common femoral artery was accessed. The inner cannula was advanced. Limited right common femoral angiography was performed followed by upsizing to a 5-Mauritian x 11 cm sheath. Access was also obtained in the same technique using the micropuncture technique in the right common femoral vein and a 6-Mauritian x 11 cm sheath was placed. A 6-Mauritian Hart catheter was used for right catheterization with measurement of pressures and calculation of cardiac output using the estimated Zion method. Bilateral selective coronary angiography was then performed using 5-Mauritian JL4 and JR4 diagnostic catheters. The 5-Mauritian JR4 diagnostic catheter was used to selectively engage the radial graft to the OM. Angiography was performed. The JR4 diagnostic catheter was used to selectively engage the innominate artery and then using a Glidewire, the catheter was advanced. There was inability to selectively engage the right internal mammary artery bypass graft due to severe tortuosity of the innominate artery, however, this was nonselectively imaged with good opacification. The catheter was then removed. A 5-Mauritian MIESHA diagnostic catheter was used to selectively engage the left subclavian artery and then selectively engage the left internal mammary artery. Angiography was performed. Catheter was removed. Procedure was concluded. Manual compression applied for hemostasis in the right common femoral artery and vein. He will be discharged in 4 to 5 hours. TOTAL FLUORO TIME: 13.19 minutes. TOTAL AIR KERMA: 923 mGy. TOTAL CONTRAST VOLUME: 50 mL. HEMODYNAMICS: 1. RA 13. 2. RV 35/2, 6PA, 35/13 mean 25. 3. Pulmonary capillary wedge pressure 18. 4. AO 138/88, mean 111. 5. Cardiac output 4.63. Cardiac index 2.47. PA sat 57%, AO sat 94%. CORONARY ANGIOGRAPHY: This is a right dominant circulation. Left main arises from left lower cusp. It bifurcates into left anterior descending and circumflex vessels. Left main has an 80% distal stenosis. Left anterior descending: This has diffuse 80% stenosis in the proximal to mid segment. The first diagonal branch has a 70% proximal stenosis. The distal LAD is seen filling via a patent ALEJANDRO graft. Circumflex vessel: This is nondominant. It has a 70% diffuse mid segment stenosis. The distal circumflex and obtuse marginal branch are seen filling via a patent radial graft. Right coronary artery: This is a large and dominant vessel. It is occluded in its proximal segment. It arises from the right coronary cusp. The distal RCA seen filling via patent ALEJANDRO graft. Graft angiography: 1. ALEJANDRO to LAD, this graft is widely patent. 2. HERMAN to RCA. This graft is widely patent. 3. Radial graft to the OM. This graft is widely patent. Limited right femoral angiography: This showed access to be in the right common femoral artery with mild disease and calcifications in the common femoral artery, but no obstructive lesions. SUMMARY OF THE FINDINGS: 1. Severe 3-vessel coronary artery disease. 2. Patent 3 out of 3 bypass grafts. 3. Moderately elevated filling pressures. 4. Qiac-yt-nbhcvoul pulmonary hypertension. 5. Mildly reduced cardiac output and cardiac index. RECOMMENDATIONS: 1. Continue current medical therapy. 2. The patient will continue to be evaluated for transcatheter aortic valve replacement. Electronically Signed by: Sissy Schneider M.D. 10/20/2020 05:02 P Sissy Schneider M.D. Date Dict: 10/17/2020/03:26 P/Sissy Schneider M.D. Date Trans: 10/18/2020 04:41 A/monster [id number] cc: Tony Burgos M.D. [address] [place] [id number] Normal [facility] Vital Signs Date Time Vital Sign Value Performing Clinician Reynaldo maharaj 11-04-2021 14:41-0400 Blood Pressure Location Shelbi ABRAHAM [facility] [place] 11-04-2021 14:41-0400 Diastolic blood pressure 76 mm[Hg] Shelbi ABRAHAM [facility] [place] 11-04-2021 14:41-0400 Heart rate 68 /min Shelbi ABRAHAM [facility] [place] 11-04-2021 14:41-0400 Respiratory rate 16 /min Shelbi ABRAHAM [facility] [place] 11-04-2021 14:41-0400 Systolic blood pressure 144 mm[Hg] Shelbi ROMEROL [facility] [place] Encounters Encounter Date Encounter Type Care Provider Facility Start: 09-11-2024 ambulatory MD Nesha Valencia Facil ity[facility] Start: 04-17-2024 ambulatory PROGRAM REP Isabela Bowman Facil ity:[facility] Start: 10-26-2023 End: 10-26-2023 ambulatory [place] Start: 10-19-2023 End: [facility] Start: 09-29-2023 End: 09-29-2023 ambulatory PROGRAM REP Isabela Bowman Facility:[facility] Start: 05-14-2023 End: 05-14-2023 ambulatory SH[facility]AL [facility] Start: 05-07-2023 End: 05-07-2023 ambulatory [place] Start: 12-04-2022 End: 12-05-[address] TONY BURGOS . Facility:[facility] Start: 10-01-2022 End: 10-02-[address] TONY BURGOS . Facility:[facility] Start: 09-24-2022 End: 09-25-[address] TONY BURGOS . Facility:[facility] Start: 08-17-2022 Encounter for other preprocedural examination [facility] Start: 08-12-2022 End: 08-13-[address] TONY BURGOS . Facility:[facility] Start: 08-12-2022 End: 08-13-2022 Encounter for other preprocedural examination DR TONY BURGOS . Facility:[facility] Start: 07-27-2022 End: 07-28-[address] TONY BURGOS . Facility:[facility] Start: 07-15-2022 End: 07-16-[address] TONY BURGOS . Facility:[facility] Start: 07-08-2022 End: 07-08-[address] TONY BUGROS . Facility:[facility] Start: 07-06-2022 End: 07-07-[address] TONY BURGOS . Facility:[facility] Start: 06-23-2022 End: 06-23-[address] TONY BURGOS . Facility:[facility] Start: 06-22-2022 End: 06-23-[address] TONY BURGOS . Facility:[facility] Start: 06-16-2022 End: 06-17-[address] TONY BURGOS . Facility:[facility] Start: 06-09-2022 End: 06-10-[address] TONY BURGOS . Facility:[facility] Start: 06-09-2022 End: 06-10-[address] TONY BURGOS . Facility:[facility] Start: 06-02-2022 End: 06-10-[address] TONY BURGOS . Facility:[facility] Start: 06-02-2022 End: 06-03-[address] TONY BURGOS . Facility:[facility] Start: 05-28-2022 End: 05-28-[address] TONY BURGOS . Facility:[facility] Start: 05-26-2022 End: 05-27-[address] TONY BURGOS . Facility:[facility] Start: 05-12-2022 End: 05-25-[address] TONY BURGOS . Facility:[facility] Start: 05-09-2022 End: 05-09-[address] TONY BURGOS . Facility:[facility] Start: 05-08-2022 End: 05-09-[address] TONY BURGOS . Facility:[facility] Start: 05-06-2022 End: 05-07-[address] TONY BURGOS . Facility:[facility] Start: 04-29-2022 End: 04-30-[address] TONY BURGOS . Facility:[facility] Start: 04-26-2022 End: 04-27-2022 Evaluation and management of inpatient DR TONY BURGOS . Facility: Start: 04-10-2022 End: 04-11-[address] TONY BURGOS . Facility: Start: 04-03-[address] TONY BURGOS . Facil ity:[facility] Start: 03-06-[address] TONY BURGOS . Facil ity:[facility] Start: 02-16-2022 End: 02-17-[address] TONY BURGOS . Facility: Start: 02-11-2022 End: 02-12-[address] TONY BURGOS . Facility: Start: 01-06-2022 End: 01-07-[address] TONY BURGOS . Facility: Start: 12-23-2021 End: 12-24-[address] TONY BURGOS . Facility: Start: 11-04-2021 End: 11-04-2021 Patient encounter procedure Shelbi ABRAHAM [facility] Start: 12-31-2020 End: 01-01-2021 Evaluation and management of inpatient RADHA Owusu MANSI Facility:[facility] Start: 11-05-2020 End: 11-06-2020 ambulatory [place] Facility:[facility] Start: 10-17-2020 End: 10-18-2020 ambulatory TONY BURGOS Facility:[facility] Procedures Date Procedure Procedure Detail Performing Clinician Start: 04-25-2022 Control Bleeding in Gastrointestinal Tract, Via Natural or Artificial Opening Endoscopic DR TONY BURGOS . Start: 04-25-2022 Excision of Stomach, Via Natural or Artificial Opening Endoscopic, Diagnostic DR TONY BURGOS . Start: 04-24-2022 Transfusion of Nonau tologous Red Blood Cells into Peripheral Vein, Percutaneous Approach DR TONY BURGOS . Start: 01-01-2021 ULTRASONOGRAPHY OF R IGHT AND LEFT HEART, TRANSESOPHAGEAL EHAB A [place] Start: 12-31-2020 Antibody screen TONY CONNOR Comment on above: Performed By: #### [id number] #### [facility] [address] [place] [address], [facility] Start: 12-31-2020 FLUOROSCOPY OF THORA CIC AORTA USING LOW OSMOLAR CONTRAST DOUGLAS MASROOR Start: 12-31-2020 REPLACEMENT OF AORTI C VALVE WITH ZOOPLASTIC, PERC APPROACH DOUGLAS DE LA ROSA Start: 12-10-2020 Replacement of aortic valve Shelbi ABRAHAM Start: 11-05-2020 ANESTH CHEST PROCEDURE TONY BURGOS Start: 11-05-2020 BRONCH EBUS SAMPLNG 3/> NODE NICOLE DE LA TORRECUCA Start: 10-10-2020 Biopsy of lung Shelbi ABRAHAM Start: 10-10-2020 Bronchoscopy Shelbi JEAN Start: 07-12-2013 Cardiac pacemaker, d evice (physical object) Shelbi ABRAHAM Start: 07-12-1997 Coronary artery bypa ss grafts x 3 Shelbi ABRAHAM Start: 07-12-1992 Repair of right ingu inal hernia Shelbi ABRAHAM Start: 07-12-1980 Repair of left ingui nal hernia Shelbi ABRAHAM Cardioversion Shelbi ABRAHAM Payers Date Payer Category Payer Medicare [id number] 1957 Self-pay [id number] 1957 Unknown [id number] 1935 Unknown [id number] 2.16.8 40.1.592696.3.579.2.647 1935 Unknown [id number] 2.16.8 40.1.359729.3.579.2.647 1937 Unknown [id number] 2.16.8 40.1.142795.3.579.2.647 1937 Unknown [id number] 2.16.84 0.1.055251.3.579.2.593 1937 Unknown [id number] 2.16.84 0.1.500814.3.579.2.593 1937 Unknown [id number] 2.16.84 0.1.662819.3.579.2.593 1937 Unknown [id number] 2.16.84 0.1.683992.3.579.2.593 1937 Unknown [id number] 2.16.84 0.1.786333.3.579.2.593 1937 Unknown [id number] 2.16.84 0.1.731641.3.579.2.593 1937 Unknown [id number] 2.16.84 0.1.839849.3.579.2.593 1937 Unknown [id number] 2.16.84 0.1.521292.3.579.2.593 1937 Unknown [id number] 2.16.84 0.1.579402.3.579.2.593 1937 Unknown [id number] 2.16.84 0.1.640546.3.579.2.593 1937 Unknown [id number] 2.16.84 0.1.321718.3.579.2.593 1937 Unknown [id number] 2.16.84 0.1.236610.3.579.2.593 1937 Unknown [id number] 2.16.84 0.1.164126.3.579.2.593 1937 Unknown [id number] 2.16.84 0.1.379079.3.579.2.593 1937 Unknown [id number] 2.16.84 0.1.973864.3.579.2.593 1937 Unknown [id number] 2.16.84 0.1.397111.3.579.2.593 1937 Unknown [id number] 2.16.84 0.1.093602.3.579.2.593 1937 Unknown [id number] 2.16.84 0.1.521645.3.579.2.593 1937 Unknown [id number] 2.16.84 0.1.805014.3.579.2.593 1937 Unknown [id number] 2.16.84 0.1.472156.3.579.2.593 1937 Unknown [id number] 2.16.84 0.1.974899.3.579.2.593 1937 Unknown [id number] 2.16.84 0.1.046562.3.579.2.593 1937 Unknown [id number] 2.16.84 0.1.923683.3.579.2.593 1937 Unknown [id number] 2.16.84 0.1.219049.3.579.2.593 1937 Unknown [id number] 2.16.84 0.1.053907.3.579.2.593 1937 Unknown [id number] 2.16.84 0.1.504126.3.579.2.593 1937 Unknown [id number] 2.16.84 0.1.148612.3.579.2.593 1937 Unknown [id number] 2.16.84 0.1.171760.3.579.2.593 1937 Unknown [id number] 2.16.84 0.1.403760.3.579.2.593 1937 Unknown [id number] 2.16.84 0.1.430864.3.579.2.593 1937 Unknown [id number] 2.16.84 0.1.313812.3.579.2.593 1937 Unknown [id number] 2.16.84 0.1.929394.3.579.2.593 1937 Unknown [id number] 2.16.84 0.1.966568.3.579.2.593 1937 Unknown [id number] 2.16.8 40.1.696974.3.579.2.727 1937 Unknown [id number] 2.16.8 40.1.994502.3.579.2.727 1937 Unknown [id number] 2.16.8 40.1.178086.3.579.2.727 Social History Date Type Detail Facility Start: 11-04-2021 Tobacco smoking status Ex-smoker (almaz monson) [facility] Tobacco smoking status Never [facility] Sex Assigned At Male [facility] Progress note 10-19-2023 Note Date & Type Note Facility 10-19-2023 Note Patient here for 6 m o follow up afib/atrial flutter, aortic stenosis, HFrEF, and CAD. He is scheduled next week for routine device interrogation. Had labs in Jun 2023. Denies chest pain, palpitations, and recurrent bleeding issues. Says he's doing very well. Review of Systems Cardiovascular: Positive for dyspnea on exertion ( little bit ). Respiratory: Positive for cough. All other systems reviewed and are negative. [facility] Progress note 10-19-2023 Note Date & Type Note Facility 10-19-2023 Note Cardiovascular Medic in[facility] SUBJECTIVE No chief complaint on file. Juan Barcenas is a 88 y.o. male here for follow-up. His daughter accompanied him today. HPI PMHx: HFrEF, pacemaker induced cardiomyopathy s/p DIRECTOR PRODUCT MANAGEMENT-P, aortic stenosis s/p TAVR on 12/31/2020 with Minerva 29 mm valve, CAD s/p CABG, PAF, HTN, CASPER 10/19/2023 He states he has been feeling well since last seen, no changes. He has COOK - this is stable. Denies CP, orthopnea, PND, LE edema, dizziness/LH, palpitations. 05/14/23: Here for follow up Has been feeling well with no complaints, Chest pain, palpitations, worsen COOK He has cook with some exertion and mild LE edema which is chronic/baseline We discussed resuming DOAC and patient/daughter would like to stay off blood thinners and no A-fib seen on device we discussed stroke risk and no antiplatelet aspirin 81 mg is not protective of stroke in the setting of A-fib, and they are aware Accompanied by daughter 11/10/22 HPI: here for follow s/p BiV upgrade for DIRECTOR PRODUCT MANAGEMENT-P. His blood pressure readings are elevated and he is currently on Coreg 18.75mg bid, Cozaar 100 once daily, Norvasc 10 mg once daily. on this his blood pressure readings somewhat markedly elevated in the 160-180 range at 8 AM to 9 AM readings in the afternoon readings are usually in the 130-150 range. he feels good after the DIRECTOR PRODUCT MANAGEMENT upgrade. He had reduced EF in 02/11/2022 and has atrial rates - the initial plan was to offer upgrade and AVN ablation but he is in SR on todays device check. He has not taken xarelto in almost one year due to GI bleed per his daughter who is with him today He just had recent EGD done which did not have a source of bleeding, there was a previously repaired AVM d/t to GI bleed from 11/2021. It is noted in GI visit 07/23/2022 had a nonbleeding gastric AVM that was treated. He has had no recent melena and an increase in hemoglobin from 8-11 as of 09/24/22. recent enteroscopy which did not have evidence for bleeding. 07/22/2022 Enteroscopy Impression: The scope was advanced up to the mid/distal jejunum. Possible one nonbleeding small AVM was seen in the mid jejunum and ablated by argon plasma coagulation. No bleeding was seen during this examination. No masses or ulcers were identified Prior HPI: Juan Barcenas is a 87 y.o. year old with past medical history of aortic stenosis s/p TAVR on 12/31/2020 with Minerva 29 mm valve, CAD s/p CABG. Was noted to have high atrial rate and treated as AF. He was started on Amio with plans for DCCV. He is s/p PPM on 07/28/2018. He is on Xarelto now. He has some fatigue and hard to explain if AF alone is the cause. He was noted to have an echocardiogram recently which showed a drop in ejection fraction to 45%. Device check that was performed on 03/31/2022 shows status got organized atrial rate of approximately 240 ms with underlying ventricular pacing on other occasions he was noted to have council conduction. 1 so that showed (90 range Patient Active Problem List Diagnosis Aortic valve disorder Aortic valve stenosis Presence of cardiac resynchronization therapy pacemaker (DIRECTOR PRODUCT MANAGEMENT-P) Pacing-induced cardiomyopathy (CMS/HCC) Coronary arteriosclerosis Dizziness and giddiness Dyspnea Essential hypertension Hyperlipidemia Joint pain Local infection of skin and subcutaneous tissue Pulmonary emphysema (CMS/HCC) Paroxysmal atrial fibrillation (CMS/HCC) Syncope and collapse Atrial flutter (CMS/HCC) Acute diastolic heart failure (CMS/HCC) Adenomatous polyp of colon Anemia Iron deficiency anemia intermediate current use of anticoagulant therapy Overweight with body mass index (BMI) 25.0-29.9 Polymyalgia rheumatica (CMS/HCC) Stage 3 chronic kidney disease (CMS/HCC) CHF (congestive heart failure) (CMS/HCC) GI (gastrointestinal bleed) NSVT (nonsustained ventricular tachycardia) (CMS/HCC) Stenosis of left carotid artery Pure hypercholesterolemia Past Medical History: Diagnosis Date Arthritis Atrial fibrillation (CMS/HCC) CHF (congestive heart failure) (CMS/HCC) Coronary artery disease GI (gastrointestinal bleed) HL (hearing loss) Hyperlipidemia Hypertension Family History Problem Relation Name Age of Onset Stroke Mother Other (LYPHOMA) Father Social History Tobacco Use Smoking status: Former Types: Cigarettes Passive exposure: Past Smokeless tobacco: Never Vaping Use Vaping Use: Never used Substance Use Topics Alcohol use: Never Drug use: Never No Known Allergies ROS Cardiovascular: Positive for dyspnea on exertion ( little bit ). Respiratory: Positive for cough. All other systems reviewed and are negative. OBJECTIVE Visit Vitals BP 140/74 (BP Location: Left arm, Patient Position: Sitting) Pulse 61 Ht 1.702 m (5' 7 ) Wt 78 kg (172 lb) SpO2 97% BMI 26.94 kg/m??? Smoking Status Former BSA 1.92 m??? Medications: Current Outpatient Medications: amiodarone (Pacerone) 200 mg table (more content not included)... 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 His blood pressure readings are elevated and he is currently on Coreg 18.75mg bid, Cozaar 100 once daily, Norvasc 10 mg once daily. on this his blood pressure readings somewhat markedly elevated in the 160-180 range at 8 AM to 9 AM readings in the afternoon readings are usually in the 130-150 range. he feels good after the DIRECT[employer]ODUCT [employer]NAGEMENT upgrade. He had reduced EF in 02/11/2022 and has atrial rates - the initial plan was to offer upgrade and AVN ablation but he is in SR on todays device check. He has not taken xarelto in almost one year due to GI bleed per his daughter who is with him today He just had recent EGD done which did not have a source of bleeding, there was a previously repaired AVM d/t to GI bleed from 11/2021. It is noted in GI visit 07/23/2022 had a nonbleeding gastric AVM that was treated. He has had no recent melena and an increase in hemoglobin from 8-11 as of 09/24/22. recent enteroscopy which did not have evidence for bleeding. 07/22/2022 Enteroscopy Impression: The scope was advanced up to the mid/distal jejunum. Possible one nonbleeding small AVM was seen in the mid jejunum and ablated by argon plasma coagulation. No bleeding was seen during this examination. No masses or ulcers were identified Prior HPI: Juan Barcenas is a 87 y.o. year old with past medical history of aortic stenosis s/p TAVR on 12/31/2020 with Minerva 29 mm valve, CAD s/p CABG. Was noted to have high atrial rate and treated as AF. He was started on Amio with plans for DCCV. He is s/p PPM on 07/28/2018. He is on Xarelto now. He has some fatigue and hard to explain if AF alone is the cause. He was noted to have an echocardiogram recently which showed a drop in ejection fraction to 45%. Device check that was performed on 03/31/2022 shows status got organized atrial rate of approximately 240 ms with underlying ventricular pacing on other occasions he was noted to have council conduction. 1 so that showed (90 range -------- -------- PMH: Past Medical History: Diagnosis Date Arthritis Atrial fibrillation ([facility]) CHF (congestive heart failure) ([facility]) Coronary artery disease GI (gastrointestinal bleed) HL (hearing loss) Hyperlipidemia Hypertension As above PSH: Past Surgical History: Procedure Laterality Date CARDIAC VALVE REPLACEMENT CORONARY ARTERY BYPASS GRAFT CTA ABDOMEN PELVIS W AND/OR WO IV CONTRAST 10/24/2020 CT ABDOMEN PELVIS ANGIOGRAM W AND/OR WO IV CONTRAST HALL CONVERSION CTA CHEST W AND/OR WO IV CONTRAST 10/24/2020 CT CHEST ANGIOGRAM W AND/OR WO IV CONTRAST HALL CONVERSION EYE SURGERY buckle around b/l eyes, d/t detached retina HERNIA REPAIR INSERT / REPLACE / REMOVE PACEMAKER MULTIPLE TOOTH EXTRACTIONS SH: Social Determinants of Health Tobacco Use: Medium Risk (05/14/2023) Patient History Smoking Tobacco Use: Former Smokeless Tobacco Use: Never Passive Exposure: Past Alcohol Use: Not on file Financial Resource Strain: Not on file Food Insecurity: Not on file Transportation Needs: Not on file Physical Activity: Not on file Stress: Not on file Social Connections: Not on file Intimate Partner Violence: Not on file Depression: Not at risk (06/08/2022) PHQ-2 PHQ-2 Score: 1 Housing Stability: Not on file Meds: Current Outpatient Medications on File Prior to Visit Medication Sig Dispense Refill amiodarone (Pacerone) 200 mg tablet TAKE 1 TABLET BY MOUTH DAILY AFTER FINISHING THE 400 MG PRESCRIPTION 90 tablet 3 amLODIPine (Norvasc) 10 mg tablet Take 1 tablet (10 mg) by mouth in the morning. 30 tablet 3 aspirin 81 mg EC tablet Take 81 mg by mouth in the morning. atorvastatin (Lipitor) 20 mg tablet Take 1 tablet by mouth in the morning. carvedilol (Coreg) 6.25 mg tablet Take 3 tablets (18.75 mg) by mouth with breakfast and with evening meal. 540 tablet 3 ferrous sulfate 325 (65 Fe) MG tablet Take 65 mg by mouth with breakfast. furosemide (Lasix) 40 mg tablet Take 1 tablet by mouth in the morning. losartan (Cozaar) 100 mg tablet Take 1 tablet every day by oral route for 90 days. omeprazole (PriLOSEC) [address] capsule Take 40 mg by mouth before breakfast. Do not crush or chew. vit C/E/Zn/coppr/lutein/zeaxan (PRESERVISION AREDS-2 ORAL) Take by mouth in the morning and at bedtime. No (more content not included)... [facility] Clinical Note 04-25-2022 Note Date & Type Note Facility 04-25-2022 Note [facility] Discharge summary note 01-02-2021 Note Date & Type Note Facility 01-02-2021 Note MR#: [id number] I [facility] Pt. Name: Juan Barcenas Admitted: 12/31/2020 Discharged: 01/01/2021 Date of : 1935 Physician: Sissy Schneider M.D. DISCHARGE SUMMARY ADMISSION DIAGNOSIS: Severe symptomatic aortic stenosis. DISCHARGE DIAGNOSIS: Severe symptomatic aortic stenosis, status post successful TAVR. DISCHARGING PHYSICIAN: Sissy Schneider M.D. HISTORY OF PRESENT ILLNESS/HOSPITAL COURSE: The patient is an 85-year-old gentleman with a past medical history including CAD status post bypass surgery, dual chamber pacemaker, and severe symptomatic aortic stenosis. He presented to [facility] on 12/31/2020 for planned transcatheter aortic valve replacement. He underwent successful procedure and was admitted to the hospital following the procedure. Echocardiogram the day after the procedure showed normal functioning of the aortic bioprosthesis. There were no acute events reported. The patient felt well and was discharged. He denied any cardiac complaints. PHYSICAL EXAMINATION: GENERAL: Alert, oriented, in no acute distress. CARDIAC: S1, S2 audible. No rubs, gallops, or murmurs. LUNGS: Clear to auscultation bilaterally. No wheezing, crackles or rales. EXTREMITIES: No edema or erythema. Access sites are clean, dry, and intact. ABDOMEN: Soft, nontender, nondistended. CARDIAC MEDICATIONS AT THE TIME OF DISCHARGE: 1. Aspirin 81 mg daily. 2. Atorvastatin 40 mg daily. 3. Coreg 12.5 mg daily. 4. Diltiazem 120 mg daily. 5. Lisinopril 10 mg daily. 6. Rivaroxaban 20 mg daily. RECOMMENDATIONS: 1. Followup with Cardiology and CT surgery scheduled. 2. The patient will undergo a repeat echocardiogram at one month prior to followup appointment. Thank you for allowing us to participate in the care of this patient. The patient was seen and staffed with Dr. Schneider, attending physician on the Interventional Cardiology Service. He is in agreement with the documentation above. Electronically Signed by: Sissy Schneider M.D. 01/05/2021 09:56 A Sissy Schneider M.D. I personally saw this patient on the day of the encounter, performed the farris portion(s) of the service and participated in the management and confirm the resident's documentation. Please note there may be an additional personal documentation from me. Date Dict: 01/01/2021/07:04 Gee/Nicole Dallas MD Date Trans: 01/02/2021 08:39 Kira/monster [id number] cc: Tony Burgos M.D. [address] [place] [id number] Sissy Schneider M.D. Heart Failure/ Transplant Mailstop [id number] [facility] [id number] Radha Nazario, MSN, [facility]INTER [facility] Dept. Of Surgery Mail[facility] [id number] [facility] [id number] [facility] Evaluation + Plan note Note Date & Type Note Facility Evaluation + Plan note No data available for this section [facility] Discharge instructions Note Date & Type Note Facility Hospital Discharge instructions No data available for this section [facility] Summary Purpose Family History No Family History Records FoundNo Family History Records FoundNo Family History Records FoundNo Family History Records FoundNo Family History Records Found Advance Directives No Advanced Directives Records FoundNo Advanced Directives Records FoundNo Advanced Directives Records FoundNo Advanced Directives Records FoundNo Advanced Directives Records Found Additional Source Comments (unrecognized sect ion and content) No Status Records FoundNo Status Records FoundNo Status Records FoundNo Status Records FoundNo Status Records Found INFORMATION SOURCE (unrecogn ized section and content) DATE CREATED AUTHOR 09/20/2021 [facility] DATE CREATED AUTHOR AUTHOR'S ORGANIZ ATION 12/17/2021 [facility] DATE CREATED AUTHOR AUTHOR'S ORGANIZ ATION 12/18/2022 [facility] DATE CREATED AUTHOR AUTHOR'S ORGANIZ ATION 11/27/2023 [facility] DATE CREATED AUTHOR AUTHOR'S ORGANIZ ATION 04/16/2024 [facility] FOR RECORDS PERTAINING TO PATIENTS WHO ARE OR HAVE BEEN ENROLLED IN A CHEMICAL DEPENDENCY/SUBSTANCEABUSE PROGRAM, SOME INFORMATION MAY BE OMITTED. This clinical summary was aggregated from multiple sources. Caution should be exercised in using it in the provision of clinical care. This summary normalizes information from multiple sources, and as a consequence, information in this document may materially change the coding, format and clinical context of patient data. In addition, data may be omitted in some cases. CLINICAL DECISIONS SHOULD BE BASED ON THE PRIMARY CLINICAL RECORDS. [facility]. provides no warranty or guarantee of the accuracy or completeness of information in this document.
[2024-04-17 12:53] LABS: Alanine Aminotransferase 14 U/L (16-63); Albumin Level 3.8 g/dL (3.4-5.0); Alkaline Phosphatase 172 U/L (46-116); Aspartate Amino Transferase 14 U/L (15-37); Bilirubin Direct 0.1 mg/dL (0.0-0.2); Bilirubin Total 0.5 mg/dL (0.2-1.0); Globulin 3.7 g/dL; Thyroid Stimulating Hormone 3.629 uIU/mL (0.358-3.740); Total Protein 7.5 g/dL (6.4-8.2)
[2024-04-17 13:58] LABS: Free T4 1.07 ng/dL (0.76-1.46)
== END 2024-04-17 11:31 | disposition home or self-care (01) ==
LOC: RAD 11:37
PROVIDERS: PCP Family Medicine; Visit Provider Nurse Practitioner Family
DX: Z79.899 Other long term (current) drug therapy (principal)
CPT/HCPCS: 36415; 71046; 80076; 84439; 84443

== ENCOUNTER 2024-04-21 12:11 | Outpatient (OUT) | payer MEDICARE, SELFPAY ==
--- OUTSIDE RECORDS SUMMARY | 2024-04-21 12:15 | XMS_ITS | CCD ---
Author Organization [facility] Care Team Providers Care Grassroots Organizer Name Role Phone TONY BURGOS Primary Care Unavailable TONY BURGOS Referring Unavailable UNKNOWN, PROVIDER Admitting Unavailable UNKNOWN, PROVIDER Attending Unavailable RADHA NAZARIO Referring Unavailable TONY BURGOS Primary Care Unavailable UNKNOWN, PROVIDER Attending Unavailable UNKNOWN, PROVIDER Admitting Unavailable DOUGLAS DE LA ROSA Surgeon Unavailable [facility] Procedure Practitioner Unavailab le VA Procedure Practitioner Unavailab GREGORIO LevyAB A Surgeon Unavailable [facility] Procedure Practitioner Unavailab TONY Hsu Referring Unavailable TONY BURGOS Primary Care Unavailable NICOLE GUERRERO Admitting Unavailable NICOLE GUERRERO Attending Unavailable NICOLE GUERRERO Surgeon Unavailable TONY BURGOS Primary Care Physician [phone] BURGOS ., DR TONY Latham Primary Care [...] BURGOS ., DR TONY Latham Consulting Unavailable BRUGOS ., DR TONY Latham Admitting Unavailable BURGOS ., DR TONY Latham Primary Care Unavailable BURGOS ., DR TONY Latham Attending Unavailable BURGOS ., DR TONY Latham Consulting Unavailable BURGOS ., DR TONY Latham Admitting Unavailable BURGOS ., DR TONY Latham Primary Care Unavailable BURGOS ., DR TONY Latham Attending Unavailable BURGOS ., DR TONY Latham Consulting Unavailable BURGOS ., DR TOYN Latham Admitting Unavailable BURGOS ., DR TONY [...] Care Unavailable BURGOS ., DR TONY Latham Admitting [...] BURGOS ., DR TONY Latham Consulting Unavailable GRECHVITA ., PIO WELLER Procedure Practitioner Yodit vailable BURGOS ., DR TONY Latham Admitting Unavailable MONTGOMERY, DR JUSTIN Mcneill Consulting Unavailable ALBERTO VIZCAINO Procedure Practitioner Unavailab will GUSMAN ., PIO WELLER Consulting UnavailARUNA Matamoros Consulting Unavailable SHAIKH Shlomo ROCHA Consulting Unavailable SHELBI PATEL Consulting Unavailable NESHA RESENDEZ Consulting Unavailable ALBERTO [...] MCDONALD Referring Unavailable ROBIN MCDONALD Referring Unavailable Nesha Valencia Attending Unavailable Gracie, JAMES Rodas Attending Unavailable GracieJAMES beasley Attending Unavailable Allergies Allergy Classification Reported Allergen(s) Allergy Type Date of Onset Reaction(s) Facility (1 source) No Known Medication Allergies; Translations: [No Known Medication Allergies] Propensity to adverse reactions (disorder) [facility] Repository Medications Current Medications Medication Drug Class(es) [...] Arteriovenous malformation, other site; Translations: [ARTERIOVENOUS MALFORMATION [facility] SITE] Onset: 05-05-2022 Chronic Cardiac dysrhythmias (9 [...] disease (3 sources) Atherosclerotic heart disease of [place] coronary artery without angina pectoris; Translations: [ASHD [place] W/O ANGINA PECTORIS] Onset: 03-04-2022 Chronic [...] sources) Long-term current use of anticoagulant; Translations: [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 of anticoagulants] Onset: 11-04-2021 Episodic [...] 2 Episodic Other aftercare (1 source) Other halfway (current) drug therapy; Translations: [OTH SKILLED NURSING CURRENT DRUG THERAPY] Onset: 3 Episodic Other aftercare (1 source) prison (current) use of anticoagulants; Translations: [SKILLED NURSING CURRNT USE ANTICOAGULANTS] Onset: 2 Episodic Other aftercare (4 sources) Encounter for therapeutic drug level monitoring; Translations: [ENC THERAPEUTC DRUG LEVL MONITORING] Onset: 2 Episodic Other aftercare (1 source) 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 Discharge Vitals Temperature (Temporal Artery) 37.0 ?C Heart Rate (Peripheral) 68 Respiratory Rate 18 Blood Pressure 132/86 Height 167.0 cm Height 66 in Weight 79.5 kg Weight 174.9 lb BMI 28.51 What to do next Scheduled Follow-Up Appointments Wednesday 11:00 AM EST Where: [place] [id number]- Medications What How Much When Instructions Unchanged amlodipine (amLODIPine 10 mg Tab) 1 Tablets By Mouth Every day Unchanged aspirin (aspirin 81 mg Oral EC Tab) 1 Tablets By Mouth Every day Unchanged atorvastatin (atorvastatin 20 mg Tab) See instructions TAKE 1 TABLET BY MOUTH AT BEDTIME Unchanged carvedilol (carvedilol 6.25 mg Tab) 1 Tablets By Mouth 2 times a day Unchanged ferrous sulfate (ferrous sulfate 325 mg Tab) 1 Tablets By Mouth 2 times a day Unchanged furosemide (Lasix 40 mg Tab) 1 Tablets By Mouth Every day Unchanged losartan (losartan 100 mg Tab) See instructions TAKE 1 TABLET BY MOUTH EVERY DAY Unchanged multivitamin with minerals (PreserVision AREDS) 1 Tablets By Mouth Every day Unchanged omeprazole (omeprazole 40 mg Cap-DR) 1 Capsules By Mouth Every day Unchanged spironolactone 25 Milligram By Mouth Every day Allergies No Known Allergies No Known Medication Allergies Problems Ongoing - Any problem that you are currently receiving treatment for. Acute diastolic heart failure Anemia ASCVD (arteriosclerotic cardiovascular disease) Atrial fibrillation with rapid ventricular response BMI 25.0-25.9,adult Chronic anticoagulation Chronic kidney disease, stage 3 Diastolic CHF HTN (hypertension) Iron deficiency anemia Polymyalgia rheumatica Pure hypercholesterolemia Serrated adenoma of colon Patient Survey You may receive a survey via text or e-mail asking about your office visit. Please share your experience with us by completing your survey. We appreciate your feedback and thank you for choosing us for your care. Normal [facility] Family Medicine Office/Clini c Noteon 04-17-2024 Family Medicine Office/Clinic Note Family Medicine Office/Clinic Note HPI Staff Juan is a 88 year old male presenting with Patient is here for follow up on hyperlipidemia: Do you have side effects from the medication? no Refill needed?: _ None that they are aware of Yearly Lipid labs: History of Present Illness pt presents today for 6 month follow up. Review of Systems PHQ Score Initial Depression Screen Score: 0 SCORE Physical Exam Vitals & Measurements T: 37.0 ?C(Temporal Artery) HR: 68(Peripheral) RR: 18 BP: 132/86 SpO2: 98% HT: 66 in HT: 167.0 cm WT: 79.5 kg WT: 174.9 lb BMI: 28.51 General: alert, no acute distress ENMT: oral mucosa moist, no pharyngeal erythema or exudate Cardiovascular: regular rate and rhythm, normal peripheral perfusion Respiratory: Lungs CTA, respirations non labored Extremities: no deformity, no trauma Neurological: oriented x 4, LOC appropriate for age, CN II-XII intact, motor strength equal & normal bilaterally, speech normal Assessment/Plan 1. Pure hypercholesterolemia (E78.00: Pure hypercholesterolemia, unspecified) pt presents today for 6 month follow up. is going to [facility] after this appointment for labs that were ordered by cardiology and for chest x ray. lipid panel ordered. pt and his daughter say he is doing well denies needs at this time. he tries to stay active but knows when he needs to rest. RTC 6 months 2. Chronic kidney disease, stage 3 (N18.30: Chronic kidney disease, stage 3 unspecified) CMP ordered. will have done at [facility] 3. Diastolic CHF (I50.30: Unspecified diastolic (congestive) heart failure) follow up with cardiology at end of month. is going to [facility] for labs and chest x ray today that were ordered 4. Former smoker (Z87.891: Personal history of nicotine dependence) continue not smoking 5. BMI 28.0-28.9,adult (Z68.28: Body mass index [BMI] 28.0-28.9, adult) BMI education given 6. Overweight (BMI 25.0-29.9) (E66.3: Overweight) see above Follow-up No qualifying data available Problem List/Past Medical History Ongoing Acute diastolic heart failure Anemia ASCVD (arteriosclerotic cardiovascular disease) Atrial fibrillation with rapid ventricular response BMI 25.0-25.9,adult Chronic anticoagulation Chronic kidney disease, stage 3 Diastolic CHF HTN (hypertension) Iron deficiency anemia Polymyalgia rheumatica Pure hypercholesterolemia Serrated adenoma of colon Historical No qualifying data Procedure/Surgical History Colonoscopy (11/26/2021), EGD - Esophagogastroduodenoscopy (11/26/2021), AVR - Aortic valve replacement (12/2020), Biopsy of lung (10/2020), Bronchoscopy (10/2020), Cardiac pacemaker (2013), 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 Medications amLODIPine 10 mg Tab, 10 mg= 1 tab(s), Oral, Daily, 1 refills aspirin 81 mg Oral EC Tab, 81 mg= 1 tab(s), Oral, Daily atorvastatin 20 mg Tab, See Instructions carvedilol 6.25 mg Tab, 6.25 mg= 1 tab(s), Oral, BID ferrous sulfate 325 mg Tab, 325 mg= 1 tab(s), Oral, BID, 3 refills Lasix 40 mg Tab, 40 mg= 1 tab(s), Oral, Daily losartan 100 mg Tab, See Instructions omeprazole 40 mg Cap-DR, 40 mg= 1 cap(s), Oral, Daily, 3 refills PreserVision AREDS, 1 tab(s), Oral, Daily spironolactone, 25 mg, Oral, Daily Allergies No Known Allergies No Known Medication Allergies Social History Alcohol - Denies Alcohol Use, 11/04/2021 Household alcohol concerns: No., 09/29/2023 Substance Abuse - Denies Substance Abuse, 11/04/2021 Tobacco Former smoker, quit more than 30 days ago, quit 45 years ago Tobacco Use:. Never Smokeless Tobacco Use:. Cigarettes, 04/17/2024 Family History Acute myocardial infarction: Mother. Cancer: Father. Cirrhosis of liver: Mother. Stroke: Mother. Immunizations Vaccine Date Status SARS-CoV-2 (COVID-19) mRNA BNT-162b2 vax 09/30/2020 Recorded zoster vaccine live 12/01/2015 Recorded pneumococcal 13-valent vaccine 12/01/2015 Recorded [facility] Comment on above: Result Comment: Elec tronically Signed By: Isabela Shields\.kristian\Date and Time Signed: 04/17/24 13:43 EDT Consultation Noteon 12-01-19 24 Consultation Note [id number]#[id number] [facility] 36on 11-24-2023 36 PT INFORTMED Normal [facility] Echocardiographyon 4 Echocardiography [id number]#[id number] [facility] Office Visiton 10-19-2023 Follow-up visit [id number] Juan Barcenas 1935 M Date Provider Department Center 10/19/2023 Roxaan-OLIVIA CORMIER Family History Problem Relation Age of Onset Stroke Mother Other Father Family Status - Relation Status Age at Mother Father Level of Service:66870 [facility] OFFICE/OUTPATIENT ESTABLISHED MOD MDM 30 MIN Reason for Visit and Comments: Atrial Fibrillation [80] Congestive Heart Failure [127] Normal [facility] Ambulatory Visit Summaryon 0 09-29-2023 Ambulatory Visit [...] Follow-Up Appointments Wednesday 11:00 AM EST Where: [facility] Family [facility] [place] Normal [facility] Family Medicine Office/Clini c Noteon 09-29-2023 Family [...] of clutter to prevent tripping and/or falling. [place] Advance Directives reviewed, patient has at home, [...] labs completed in fall, request sent to [facility]. Colonoscopy, aged out. Reviewed pain symptoms with [...] follow up visits. Patient follows up with [facility], last visit notes available in chart (outside records). Cardiac Healthy Nutritional handout reviewed and provided for patient. 5. ASCVD (arteriosclerotic cardiovascular disease) (I25.10: Atherosclerotic heart disease of [place] coronary artery without angina pectoris) Patient follows up with [facility], every 6 months. Patient follows with Dr. Schneider and Dr. Mcdonald of [facility]. Last visit summary notes are available in chart (outside records). Denies concerns with SOB, chest pain or tightness. Taking medications daily as directed. Reviewed Cardiac nutritional recommendations with handout provided. Patient voices understanding with signs and symptoms to monitor for and report to provider. 6. Pure hypercholesterolemia (E78.00: Pur (more content not included)... Normal [facility] Comment on above: Result Comment: Elec tronically Signed By: Isabela Shields\.br\Date and Time Signed: 09/29/23 13:41 EDT\.br\Electronically Co-Signed By: Bhaskar Leigh\.br\Date and Time Co-Signed: 09/29/23 11:20 EDT Lab Reportson 09-29-2023 Lab Reports [id number] Normal [facility] Patient Educationon 09-29-19 Patient Education Cardiovascular Atrial [...] signals of the heart. ? An ambulatory special events planner to record your heart's activity for a [...] Trouble breathing. (more content not included)... Normal [facility] Screenson 09-29-2023 Screens [id number] Normal [facility] Orders Onlyon 09-15-2023 Orders Only [id number] Narinder,Juan D 1935 M Date Provider Department Center 09/15/2023 ROBIN [facility] KEKE Yu Family History Problem Relation Age of Onset Stroke Mother Other Father Family Status - Relation Status Age at Mother Father Normal [facility] 36on 07-29-2023 38 As long as vest is n ot too hot , would not recommend direct contact to skin Normal [facility] Telephoneon 07-29-2023 Telephone [id number] Narinder,Juan D 1935 M Date Provider Department Center 07/29/2023 FRED GODWIN Family History Problem Relation Age of Onset Stroke Mother Other Father Family Status - Relation Status Age at Mother Father Normal [facility] Orders Onlyon 06-16-2023 Orders Only [id number] Narinder,Juan D 1935 M Date Provider Department Center 06/16/2023 FRED GODWIN Family History Problem Relation Age of Onset Stroke Mother Other Father Family Status - Relation Status Age at Mother Father Normal [facility] Office Visiton 05-14-2023 Follow-up visit [id number] Juan Barcenas 1935 M Date Provider Department Center 05/14/2023 SHANTAL HENSON [facility] Family History Problem Relation Age of Onset Stroke Mother Other Father Family Status - Relation Status Age at Mother Father Level of Service:74632 [facility] OFFICE/OUTPATIENT ESTABLISHED MOD MDM 30-39 MIN Reason for Visit and Comments: Follow-up [812316] Normal [facility] ECHOCARDIO M/2D COMPLETEon 0 12-04-2022 ECHOCARDIO M/2D COMPLETE Normal [facility] XR CHEST 2 Von 10-01-2022 XR CHEST 2 V Normal [facility] CBC W MANUAL DIFFon 09-25-19 ANISOCYTOSIS SLIGHT Normal [facility] Comment on above: Performed By: #### C ALEX ####[facility] Arevrpvb[address] [place] [address]Dr. Amina Escobar ATYPICAL LYMPH # Normal [facility] Comment on above: Performed By: #### C ALEX ####[facility] Fsuuwlxxyz[address]34 [place] [address]Dr. Yilan Escobar ATYPICAL LYMPH % Normal [facility] Comment on above: Performed By: #### C ALEX ####[facility] Qbkzewgaph0499 [place] [address]Dr. Kandilan Escobar BAND # Normal 0.0-0.3 [facility] Comment on above: Performed By: #### C AELX ####[facility] Henojvzmyk8[address] [place] [address]Dr. Yilan Escobar BAND % Normal 0-5 [facility] Comment on above: Performed By: #### C ALEX ####[facility] Osxkmnloji0380 [place] [address]Dr. Kandilan Escobar BASOM # 0.00 103/ul Normal 0.00-0.10 [facility] Comment on above: Performed By: #### C ALEX ####[facility] Jvlruasrve7614 [place] [address]Dr. Amina Escobar BASOM % 0.0 % Critically low 0.2-2.0 [facility] Comment on above: Performed By: #### C ALEX ####[facility] Vqxrzjngmw6924 [place] [address]Dr. Amina Escobar BLAST # Normal [facility] Comment on above: Performed By: #### C ALEX ####[facility] Ljouvxwrin8993 [place] [address]Dr. Amina Escobar BLAST % Normal [facility] Comment on above: Performed By: #### C ALEX ####[facility] Gqsdmbkdze3458 [place] [address]Dr. Amina Escobar CORRECTED WBC Normal 4.0-11.0 [facility] Comment on above: Performed By: #### C ALEX ####[facility] F[address] [place], [place] [address]Dr. Amina Escobar EOS # 0.12 103/ul Normal 0.00-0.70 [facility] Comment on above: Performed By: #### C ALEX ####[facility] Wndkfgfiaq[address] [place], [place] [address]Dr. Amina Escobar EOS% 2.0 % Normal 0.9-7.0 [facility] Comment on above: Performed By: #### C ALEX ####[facility] Haokoslqeg[address] [place], [place] [address]Dr. Amina Escobar HCT 37.9 % Critically low 42.0-54.0 [facility] Comment on above: Performed By: #### C ALEX ####[facility] Ckpqhrbmgm[address] [place], [place] [address]Dr. Amina Escobar HGB 11.5 g/dl Critically low 14.0-18.0 [facility] Comment on above: Performed By: #### C ALEX ####[facility] Tcqqvsmcuz[address] [place], [place] [address]Dr. Amina Escobar HYPOCHROMASIA SLIGHT Normal [facility] Comment on above: Performed By: #### C ALEX ####[facility] Esbqtitknz[address] [place], [place] [address]Dr. Amina Escobar LYMPHM # 0.65 103/ul Critically low 1.20-3.80 [facility] Comment on above: Performed By: #### C ALEX ####[facility] Oxpllhdrlw0275 [place] [address]Dr. Amina Escobar LYMPHM% 11.0 % Critically low 20.5-60.0 [facility] Comment on above: Performed By: #### C ALEX ####[facility] Hcztxktnzp9292 [place] [address]Dr. Amina Escobar MCH 26.0 pg Normal 25.9-34.0 [facility] Comment on above: Performed By: #### C ALEX ####[facility] Amwffqngko6762 [place] [address]Dr. Amina Escobar MCHC 30.3 g/dl Normal 29.9-35.2 [facility] Comment on above: Performed By: #### C ALEX ####[facility] Ycyxojmmfy[address] [place], [place] [address]Dr. Amina Escobar MCV 85.7 fL Normal 80.0-94.0 [facility] Comment on above: Performed By: #### C ALEX ####[facility] Kidnagdrxf[address] [place], [place] [address]Dr. Amina Escobar METAMYELOCYTE # Normal [facility] Comment on above: Performed By: #### C ALEX ####[facility] Srqsqtvkll3656 [place] [address]Dr. Amina Escobar METAMYELOCYTE % Normal [facility] Comment on above: Performed By: #### C ALEX ####[facility] Vzwbdtgwtb6285 [place] [address]Dr. Amina Escobar MICROCYTOSIS SLIGHT Normal [facility] Comment on above: Performed By: #### C ALEX ####[facility] Kcnotyubgz[address] [place], [place] [address]Dr. Amina Escobar MONOM# 0.35 103/ul Normal 0.30-0.80 [facility] Comment on above: Performed By: #### C ALEX ####[facility] Mlsbwxcrty[address] [place], [place] [address]Dr. Amina Escobar MONOM% 6.0 % Normal 1.7-12.0 [facility] Comment on above: Performed By: #### C ALEX ####[facility] Ncoluyxewm2769 [place] [address]Dr. Amina Escobar MPV 11.9 fL Normal 9.5-13.5 [facility] Comment on above: Performed By: #### C ALEX ####[facility] Kdsrxiefzy4996 [place] [address]Dr. Amina Escobar MYELOCYTE # Normal [facility] Comment on above: Performed By: #### C ALEX ####[facility] Pgguqujjya8625 [place] [address]Dr. Amina Escobar MYELOCYTE % Normal [facility] Comment on above: Performed By: #### C ALEX ####[facility] Unnvahkswz34[address] [place] [address]Dr. Amina Escobar NRBC Normal [facility] Comment on above: Performed By: #### C ALEX ####[facility] Rielntqcxu1204 [place] [address]Dr. Amina Escobar OVALOCYTES SLIGHT Normal [facility] Comment on above: Performed By: #### C ALEX ####[facility] Frhjcpgajc8450 [place] [address]Dr. Amina Escobar PLT 185 103/ul Normal 150-450 [facility] Comment on above: Performed By: #### C ALEX ####[facility] Ybfojllalq8648 [place] [address]Dr. Amina Escobar POIKILOCYTOSIS SLIGHT Normal [facility] Comment on above: Performed By: #### C ALEX ####[facility] Vzjcvxoacg1455 [place] [address]Dr. Amina Escobar RBC 4.42 106/ul Critically low 4.70-6.10 [facility] Comment on above: Performed By: #### C ALEX ####[facility] Kwfsyawamc7[address] [place] [address]Dr. Kandielda Shawn RDW 16.4 % Critically high 11.0-15.0 [facility] Comment on above: Performed By: #### C BCMAN ####[facility] Ywcqgtrtfv6655 [place] [address]Dr. Amina Escobar SEG # 4.78 103/ul Normal 1.40-6.50 [facility] Comment on above: Performed By: #### C BCMAN ####[facility] Cvspnxsqcz1325 [place] [address]Dr. Amina Shawn SEG % 81.0 % Critically high 43.0-75.0 [facility] Comment on above: Performed By: #### C BCMAN ####[facility] Lbcsfcwxxx0141 [place] [address]Dr. Amina Shawn WBC 5.9 103/ul Normal 4.0-11.0 [facility] Comment on above: Performed By: #### C BCKELLY ####[facility] Bsvwhpquve[address] [place], [place] [address]Dr. Amina Escobar PROF CHEM 8 (BAS METB)on Anion gap [Moles/Vol] 8.5 mmol/L Normal [facility] Comment on above: Performed By: #### B MP ####[facility] Twrlmjkfkz[address] [place], [place] [address]Dr. Amina Escobar Calcium [Mass/Vol] 8.3 mg/dL Critically low 8.5-10.1 Th e [facility] Comment on above: Performed By: #### B MP ####[facility] Vehzbftvvy[address] [place], [place] [address]Dr. Amina Escobar Chloride [Moles/Vol] 109 mmol/L Critically high 98-107 [facility] Comment on above: Performed By: #### B MP ####[facility] [address] [place], [place] [address]Dr. Amina Escobar CO2 [Moles/Vol] 29.5 mmol/L Normal 21.0-32.0 [facility] Comment on above: Performed By: #### B MP ####[facility] Bpqtlrktar[address] [place], [place] [address]Dr. Amina Escobar Creatinine [Mass/Vol] 1.11 mg/dL Normal 0.70-1.30 [facility] Comment on above: Performed By: #### B MP ####[facility] Ncpyalezfn3[address] [place] [address]Dr. Kandielda Shawn EGFR-AF LEBANESE >60 Normal >=60 [facility] Comment on above: Performed By: #### B MP ####[facility] Mphxjfofly2[address] [place] [address]Dr. Kandielda Shawn EGFR-NON AF LEBANESE >60 Normal >=60 [facility] Comment on above: Performed By: #### B MP ####[facility] Upbzruqxip8732 [place] [address]Dr. Amina Escobar Glucose [Mass/Vol] 96 mg/dL Normal 74-106 [facility] Comment on above: Performed By: #### B MP ####[facility] [address]utopmh[address] [place], [place] [address]Dr. Amina Escobar Potassium [Moles/Vol] 4.0 mmol/L Normal 3.5-5.1 [facility] Comment on above: Performed By: #### B MP ####[facility] Zjeccwonka[address] [place], [place] [address]Dr. Amina Escobar Sodium [Moles/Vol] 143 mmol/L Normal 136-145 [facility] Comment on above: Performed By: #### B MP ####[facility] Apfxzewjgf060[address] [place], [place] [address]Dr. Amina Escobar Urea nitrogen [Mass/Vol] 22.0 mg/dL Critically high 7.0-18.0 [facility] Comment on above: Performed By: #### B MP ####[facility] Wzwhmyficz[address] [place], [place] [address]Dr. Amina Escobar Urea nitrogen/Creatinine [Mass ratio] 19.8 mg/mg Normal [facility] Comment on above: Performed By: #### B MP ####[facility] Vyofkajxzr58[address] [place], [place] [address]Dr. Amina Escobar CBC AUTO DIFFon 08-12-2022 BASO # 0.0 103/ul Normal 0.0-0.1 [facility] Comment on above: Performed By: #### C BC ####[facility] Cgtbebjxsp978[address] [place] [id number]. Amina Escobar Basophils/100 WBC (Bld) 0.7 % Normal 0.2-2.0 [facility] Comment on above: Performed By: #### C BC ####[facility] Xlktxlcosb[address] [place], [place] [address]Dr. Amina Escobar EO # 0.2 103/ul Normal 0.0-0.7 [facility] Comment on above: Performed By: #### C BC ####[facility] Swdshztblu54[address] [place], [place] [address]Dr. Amina Escobar Eosinophils/100 WBC (Bld) 3.9 % Normal 0.9-7.0 [facility] Comment on above: Performed By: #### C BC ####[facility] Psczvtjzwv209[address] [place], [place] [address]Dr. Amina Escobar Erythrocyte distribution width (RBC) [Ratio] 15.5 % Critically high 11.0-15.0 [facility] Comment on above: Performed By: #### C BC ####[facility] Awhwfteniy400[address] [place], [place] [address]Dr. Amina Escobar Hematocrit (Bld) [Volume fraction] 39.3 % Critically low 42.0-54.0 [facility] Comment on above: Performed By: #### C BC ####[facility] Ycdqkcdwuv540[address] [place], [place] [address]Dr. Amina Escobar Hemoglobin (Bld) [Mass/Vol] 11.5 g/dL Critically low 14.0-18.0 [facility] Comment on above: Performed By: #### C BC ####[facility] Uqsulhnbbv187[address] [place], [place] [address]Dr. Amina Escobar IG # 0.02 10e3/ul Normal 0.00-0.03 [facility] Comment on above: Performed By: #### C BC ####[facility] Orytpneawu654[address] [place], [place] [address]Dr. Amina Escobar IG % 0.4 % Normal 0.0-0.5 [facility] Comment on above: Performed By: #### C BC ####[facility] Ebyvtiahng6530 [place] [address]Dr. Amina Escobar LYMPH # 0.6 103/ul Critically low 1.2-3.8 [facility] Comment on above: Performed By: #### C BC ####[facility] Knvgldavyr6715 [place] [address]Dr. Amina Escobar Lymphocytes/100 WBC (Bld) 10.1 % Critically low 20.5-60.0 [facility] Comment on above: Performed By: #### C BC ####[facility] Kodixeyjke[address] [place] [address]Dr. Amina Escobar MANUAL DIFF REQ NO Normal [facility] Comment on above: Performed By: #### C BC ####[facility] Upjnwrneiy[address] [place] [address]Dr. Amina Escobar MCH (RBC) [Entitic mass] 27.0 pg Normal 25.9-34.0 [facility] Comment on above: Performed By: #### C BC ####[facility] Gwimlkthfp7793 [place] [address]Dr. Amina Escobar MCHC (RBC) [Mass/Vol] 29.3 g/dL Critically low 29.9-35.2 [facility] Comment on above: Performed By: #### C BC ####[facility] Ovnaelmtgk99[address] [place], [place] [address]DrMemo Escobar MCV (RBC) [Entitic vol] 92.3 fL Normal 80.0-94.0 [facility] Comment on above: Performed By: #### C BC ####[facility] Nclgwjlunu6014 [place] [address]DrMemo Escobar MONO # 0.5 103/ul Normal 0.3-0.8 [facility] Comment on above: Performed By: #### C BC ####[facility] Tclxwdofys0431 [place] [address]DrMemo Escobar Monocytes/100 WBC (Bld) 9.0 % Normal 1.7-12.0 [facility] Comment on above: Performed By: #### C BC ####[facility] Wgpbrfmzmv8281 [place] [address]DrMemo Chauelda Escobar NEUT # 4.3 103/ul Normal 1.4-6.5 [facility] Comment on above: Performed By: #### C BC ####[facility] Gzlzdnwpwh7738 [place] [address]DrMemo Escobar Neutrophils/100 WBC (Bld) 75.9 % Critically high 43.0-75.0 [facility] Comment on above: Performed By: #### C BC ####[facility] Aqxrfynclp3658 [place] [address]DrMemo Escobar Platelet mean volume (Bld) [Entitic vol] 11.4 fL Normal 9.5-13.5 [facility] Comment on above: Performed By: #### C BC ####[facility] Bklrqcpxuf0842 [place] [address]DrMemo Escobar PLT 216 103/ul Normal 150-450 [facility] Comment on above: Performed By: #### C BC ####[facility] Srrdphhodi79[address] [place] [address]Dr. Amina Escobar RBC 4.26 106/ul Critically low 4.70-6.10 [facility] Comment on above: Performed By: #### C BC ####[facility] Rfrxpudywo4679 [place] [address]DrMemo Escobar WBC 5.7 103/ul Normal 4.0-11.0 [facility] Comment on above: Performed By: #### C BC ####[facility] Jxaslshujc5335 [place] [address]DrMemo Escobar PROF CHEM 8 (BAS METB)on Anion gap [Moles/Vol] 11.9 mmol/L Normal [facility] Comment on above: Performed By: #### B MP ####[facility] Fguwlgyxae2055 [place] [address]DrMemo Escobar Calcium [Mass/Vol] 8.5 mg/dL Normal 8.5-10.1 [facility] Comment on above: Performed By: #### B MP ####[facility] Cltofqzohz3405 [place] [address]Dr. Amina Escobar Chloride [Moles/Vol] 108 mmol/L Critically high 98-107 [facility] Comment on above: Performed By: #### B MP ####[facility] Smxcpbekss6545 [place] [address]Dr. Amina Escobar CO2 [Moles/Vol] 30.8 mmol/L Normal 21.0-32.0 [facility] Comment on above: Performed By: #### B MP ####[facility] Pcwetusqhr512[address] [place], [place] [address]Dr. Amina Escobar Creatinine [Mass/Vol] 1.14 mg/dL Normal 0.70-1.30 [facility] Comment on above: Performed By: #### B MP ####[facility] Mokkxwduqm178[address] [place], [place] [address]Dr. Amina Escobar EGFR-AF LEBANESE >60 Normal >=60 [facility] Comment on above: Performed By: #### B MP ####[facility] Pkhhdgipzy296[address] [place], [place] [address]Dr. Amina Escobar EGFR-NON AF LEBANESE >60 Normal >=60 [facility] Comment on above: Performed By: #### B MP ####[facility] Zzqwfejwgk220[address] [place], [place] [address]Dr. Amina Escobar Glucose [Mass/Vol] 74 mg/dL Normal 74-106 [facility] Comment on above: Performed By: #### B MP ####[facility] Bltiebbfye6430[address] [place], [place] [address]Dr. Amina Escobar Potassium [Moles/Vol] 3.7 mmol/L Normal 3.5-5.1 [facility] Comment on above: Performed By: #### B MP ####[facility] Yytlybyrdz3271 [place] [address]Dr. Amina Escobar Sodium [Moles/Vol] 147 mmol/L Critically high 136-145 [facility] Comment on above: Performed By: #### B MP ####[facility] Slaorqxnjb174[address] [place], [place] [address]Dr. Kandielda Escobar Urea nitrogen [Mass/Vol] 26.0 mg/dL Critically high 7.0-18.0 [facility] Comment on above: Performed By: #### B MP ####[facility] Frcxkjwbek3337[address] [place], [place] [address]Dr. Amina Escobar Urea nitrogen/Creatinine [Mass ratio] 22.8 mg/mg Normal [facility] Comment on above: Performed By: #### B MP ####[facility] Snwbuovmmb020[address] [place], [place] [address]Dr. Amina Escobar XR CHEST 2 Von 07-28-2022 XR CHEST 2 V Normal [facility] CBC AUTO DIFFon 07-27-2022 BASO # 0.0 103/ul Normal 0.0-0.1 [facility] Comment on above: Performed By: #### C BC ####[facility] Yttuxzltqm159[address] [place], [place] [address]Dr. Amina Escobar Basophils/100 WBC (Bld) 0.5 % Normal 0.2-2.0 [facility] Comment on above: Performed By: #### C BC ####[facility] Gfuddtapjg911[address] [place], [place] [address]Dr. Amina Escobar EO # 0.2 103/ul Normal 0.0-0.7 [facility] Comment on above: Performed By: #### C BC ####[facility] Hxnbujloqw815[address] [place], [place] [address]Dr. Amina Escobar Eosinophils/100 WBC (Bld) 2.8 % Normal 0.9-7.0 [facility] Comment on above: Performed By: #### C BC ####[facility] Egohfcpdrr212[address] [place], [place] [address]Dr. Amina Escobar Erythrocyte distribution width (RBC) [Ratio] 15.0 % Normal 11.0-15.0 [facility] Comment on above: Performed By: #### C BC ####[facility] Ayhpbewpdb9[address] [place], [place] [address]Dr. Amina Escobar Hematocrit (Bld) [Volume fraction] 37.0 % Critically low 42.0-54.0 [facility] Comment on above: Performed By: #### C BC ####[facility] Jzaxoiuvbx0658 [place] [address]DrMemo Escobar Hemoglobin (Bld) [Mass/Vol] 11.5 g/dL Critically low 14.0-18.0 [facility] Comment on above: Performed By: #### C BC ####[facility] Xpdgjrjufj0537[address] [place], [place] [address]DrMemo Escobar IG # 0.03 10e3/ul Normal 0.00-0.03 [facility] Comment on above: Performed By: #### C BC ####[facility] Dyaottezmy537[address] [place], [place] [address]DrMemo Escobar IG % 0.5 % Normal 0.0-0.5 [facility] Comment on above: Performed By: #### C BC ####[facility] Xnkwteabom055[address] [place], [place] [address]DrMemo Escobar LYMPH # 0.6 103/ul Critically low 1.2-3.8 [facility] Comment on above: Performed By: #### C BC ####[facility] Tocwnekpia3980[address] [place], [place] [address]DrMemo Escobar Lymphocytes/100 WBC (Bld) 9.2 % Critically low 20.5-60.0 [facility] Comment on above: Performed By: #### C BC ####[facility] Lzxbocbksl637[address] [place], [place] [address]DrMemo Escobar MANUAL DIFF REQ NO Normal [facility] Comment on above: Performed By: #### C BC ####[facility] Fdzeeshbxd350[address] [place], [place] [address]DrMemo Escobar MCH (RBC) [Entitic mass] 27.8 pg Normal 25.9-34.0 [facility] Comment on above: Performed By: #### C BC ####[facility] Fnnkckrdwr755[address] [place], [place] [address]DrMemo Escobar MCHC (RBC) [Mass/Vol] 31.1 g/dL Normal 29.9-35.2 [facility] Comment on above: Performed By: #### C BC ####[facility] Eotdysbpbk7488 [place] [address]DrMemo Escobar MCV (RBC) [Entitic vol] 89.4 fL Normal 80.0-94.0 [facility] Comment on above: Performed By: #### C BC ####[facility] Jutlrcihix2964[address] [place], [place] [address]DrMemo Escobar MONO # 0.6 103/ul Normal 0.3-0.8 [facility] Comment on above: Performed By: #### C BC ####[facility] Choyfhzsgi157[address] [place], [place] [address]DrMemo Escobar Monocytes/100 WBC (Bld) 8.6 % Normal 1.7-12.0 [facility] Comment on above: Performed By: #### C BC ####[facility] Ltdwrpyzsl43[address] [place], [place] [address]DrMemo Escobar NEUT # 5.1 103/ul Normal 1.4-6.5 [facility] Comment on above: Performed By: #### C BC ####[facility] Gqtyxlunex46[address] [place], [place] [address]DrMemo Escobar Neutrophils/100 WBC (Bld) 78.4 % Critically high 43.0-75.0 [facility] Comment on above: Performed By: #### C BC ####[facility] Whhluppetn280[address] [place], [place] [address]DrMemo Escobar Platelet mean volume (Bld) [Entitic vol] 11.2 fL Normal 9.5-13.5 [facility] Comment on above: Performed By: #### C BC ####[facility] Roikrthqqg960[address] [place], [place] [address]DrMemo Escobar PLT 239 103/ul Normal 150-450 [facility] Comment on above: Performed By: #### C BC ####[facility] Uulobditbe3817[address] [place], [place] [address]DrMmeo Escobar RBC 4.14 106/ul Critically low 4.70-6.10 [facility] Comment on above: Performed By: #### C BC ####[facility] Vgpvegmsqb910[address] [place], [place] [address]Dr. Amina Escobar WBC 6.4 103/ul Normal 4.0-11.0 [facility] Comment on above: Performed By: #### C BC ####[facility] Kxkvzagqjr745[address] [place], [place] [address]Dr. Amina Escobar FREE T4on 07-27-2022 Free T4 [Mass/Vol] 1.31 ng/dL Normal 0.76-1.46 [facility] Comment on above: Performed By: #### F T4 ####[facility] Ziqoleudaw0036[address] [place], [place] [address]Dr. Amina Escobar LIVER PROFILEon 07-27-2022 Albumin [Mass/Vol] 3.5 g/dL Normal 3.4-5.0 [facility] Comment on above: Performed By: #### T SH, LIVER ####[facility] Mynzpuavxp5745[address] [place], [place] [address]Dr. Amina Escobar Albumin/Globulin [Mass ratio] 0.9 {ratio} Normal [facility] Comment on above: Performed By: #### T SH, LIVER ####[facility] Opjmhkwtrj8726[address] [place], [place] [address]Dr. Amina Escobar ALP [Catalytic activity/Vol] 210 U/L Critically high 46-116 [facility] Comment on above: Performed By: #### T SH, LIVER ####[facility] Kmmzxtzkfq654[address] [place], [place] [address]Dr. Amina Escobar ALT [Catalytic activity/Vol] 19 U/L Normal 16-63 [facility] Comment on above: Performed By: #### T SH, LIVER ####[facility] Gwhdafwlni839[address] [place], [place] [address]Dr. Amina Escobar AST [Catalytic activity/Vol] 13 U/L Critically low 15-37 [facility] Comment on above: Performed By: #### T SH, LIVER ####[facility] Baprsyfbht[address] [place], [place] [address]Dr. Amina Escobar BILI, CONJUGATED 0.1 mg/dL Normal 0.0-0.2 [facility] Comment on above: Performed By: #### T SH, LIVER ####[facility] Mlhoephpfr170[address] [place], [place] [address]Dr. Amina Escobar Bilirubin [Mass/Vol] 0.4 mg/dL Normal 0.2-1.0 [facility] Comment on above: Performed By: #### T SH, LIVER ####[facility] Mpthcwlneu009[address] [place], [place] [address]Dr. Amina Escobar Globulin (S) [Mass/Vol] 3.7 g/dL Normal [facility] Comment on above: Performed By: #### T SH, LIVER ####[facility] Grnuyggbsm986[address] [place], [place] [address]Dr. Amina Escobar Protein [Mass/Vol] 7.2 g/dL Normal 6.4-8.2 [facility] Comment on above: Performed By: #### T SH, LIVER ####[facility] Vrocqlwlua0125[address] [place], [place] [address]Dr. Amina Escobar TSHon 07-27-2022 TSH 1.669 uIU/mL Normal 0.358-3.74 0 [facility] Comment on above: Performed By: #### T SH, LIVER ####[facility] Qovyhztvoh420[address] [place], [place] [address]Dr. Amina Escobar CBC AUTO DIFFon 07-15-2022 BASO # 0.1 103/ul Normal 0.0-0.1 [facility] Comment on above: Performed By: #### C BC ####[facility] Piuomwxadq059[address] [place], [place] [address]Dr. Kandielda Escobar Basophils/100 WBC (Bld) 0.7 % Normal 0.2-2.0 [facility] Comment on above: Performed By: #### C BC ####[facility] Olxwuovbti085[address] [place], [place] [address]Dr. Amina Escobar EO # 0.2 103/ul Normal 0.0-0.7 [facility] Comment on above: Performed By: #### C BC ####[facility] Pvdfwwgxth5732 [place] [address]Dr. Amina Escobar Eosinophils/100 WBC (Bld) 2.3 % Normal 0.9-7.0 [facility] Comment on above: Performed By: #### C BC ####[facility] Wpcfopjvyx9366 [place] [address]Dr. Amina Escobar Erythrocyte distribution width (RBC) [Ratio] 15.0 % Normal 11.0-15.0 [facility] Comment on above: Performed By: #### C BC ####[facility] Elsufopahl1745[address] [place], [place] [address]Dr. Amina Escobar Hematocrit (Bld) [Volume fraction] 34.2 % Critically low 42.0-54.0 [facility] Comment on above: Performed By: #### C BC ####[facility] Shtptaguod2615[address] [place], [place] [address]Dr. Amina Escobar Hemoglobin (Bld) [Mass/Vol] 10.6 g/dL Critically low 14.0-18.0 [facility] Comment on above: Performed By: #### C BC ####[facility] Nkcbssfeic8413[address] [place], [place] [address]Dr. Amina Escobar IG # 0.03 10e3/ul Normal 0.00-0.03 [facility] Comment on above: Performed By: #### C BC ####[facility] Qgpxlivmtv155[address] [place], [place] [address]Dr. Amina Escobar IG % 0.4 % Normal 0.0-0.5 [facility] Comment on above: Performed By: #### C BC ####[facility] Lwzhxdlsdk356[address] [place], [place] [address]Dr. Amina Escobar LYMPH # 0.6 103/ul Critically low 1.2-3.8 [facility] Comment on above: Performed By: #### C BC ####[facility] Rknsmdicyh47225[address] [place], [place] [address]Dr. Amina Escobar Lymphocytes/100 WBC (Bld) 8.8 % Critically low 20.5-60.0 [facility] Comment on above: Performed By: #### C BC ####[facility] Mdstwmzjmt6445 [place] [address]Dr. Amina Escobar MANUAL DIFF REQ NO Normal [facility] Comment on above: Performed By: #### C BC ####[facility] Cptbycuoud2640 [place] [address]Dr. Amina Escobar MCH (RBC) [Entitic mass] 28.9 pg Normal 25.9-34.0 [facility] Comment on above: Performed By: #### C BC ####[facility] Softwopruv3803 [place] [address]Dr. Amina Escobar MCHC (RBC) [Mass/Vol] 31.0 g/dL Normal 29.9-35.2 [facility] Comment on above: Performed By: #### C BC ####[facility] Gmalqobbek438[address] [place], [place] [address]Dr. Amina Escobar MCV (RBC) [Entitic vol] 93.2 fL Normal 80.0-94.0 [facility] Comment on above: Performed By: #### C BC ####[facility] Avsdqyptbo4611[address] [place], [place] [address]Dr. Amina Escobar MONO # 0.6 103/ul Normal 0.3-0.8 [facility] Comment on above: Performed By: #### C BC ####[facility] Yavemgndex022[address] [place], [place] [address]Dr. Amina Escobar Monocytes/100 WBC (Bld) 8.8 % Normal 1.7-12.0 [facility] Comment on above: Performed By: #### C BC ####[facility] Yoaaipyxhb[address] [place], [place] [address]Dr. Amina Escobar NEUT # 5.6 103/ul Normal 1.4-6.5 [facility] Comment on above: Performed By: #### C BC ####[facility] Ewqvckpsfv3327 [place] [address]Dr. Amina Escobar Neutrophils/100 WBC (Bld) 79.0 % Critically high 43.0-75.0 [facility] Comment on above: Performed By: #### C BC ####[facility] Emwfkwrvld6526 [place] [address]Dr. Amina Escobar Platelet mean volume (Bld) [Entitic vol] 10.1 fL Normal 9.5-13.5 [facility] Comment on above: Performed By: #### C BC ####[facility] Ykqrooueab884[address] [place], [place] [address]Dr. Amina Escobar PLT 215 103/ul Normal 150-450 [facility] Comment on above: Performed By: #### C BC ####[facility] Qoptenfamg201[address] [place], [place] [address]Dr. Amina Escobar RBC 3.67 106/ul Critically low 4.70-6.10 [facility] Comment on above: Performed By: #### C BC ####[facility] Zvixjzrswv228[address] [place], [place] [address]Dr. Amina Escobar WBC 7.1 103/ul Normal 4.0-11.0 [facility] Comment on above: Performed By: #### C BC ####[facility] Bunwizodpn674[address] [place], [place] [address]Dr. Amina Escobar PRBC LEUKOREDUCEDon 07-09-20 PRBC LEUKOREDUCED Normal [facility] Comment on above: Performed By: #### P RBC, TNS ####[facility] Vjrjaswpof17[address] [place], [place] [address]Dr. Amina Shawn Performed By: #### P RBC ####[facility] Rzizemdqvg[address] [place], [place] [address]Dr. Amina Escobar PRBC LEUKOREDUCED Normal [facility] Comment on above: Performed By: #### P RBC ####[facility] Xrkdehcyvu318[address] [place], [place] [address]Dr. Amina Shawn HEMOGLOBIN AND HEMATOCRITon 07-08-2022 Hematocrit (Bld) [Volume fraction] 25.4 % Critically low 42.0-54.0 [facility] Comment on above: Performed By: #### H GBHCT ####[facility] Wxcjjuqjba327[address] [place], [place] [address]Dr. Amina Escobar Hemoglobin (Bld) [Mass/Vol] 7.5 g/dL Critically low 14.0-18.0 [facility] Comment on above: Performed By: #### H GBHCT ####[facility] Iniwlkpryo[address] [place] [address]Dr. Amina Escobar TYPE AND SCREENon 07-08-2022 TYPE AND SCREEN Negative Normal [facility] Comment on above: Performed By: #### P RBC, TNS ####[facility] Tlerzufhln[address] [place] [address]Dr. Amina Escobar CBC AUTO DIFFon 07-06-2022 BASO # 0.1 103/ul Normal 0.0-0.1 [facility] Comment on above: Performed By: #### C BC ####[facility] Zweiyztdsd30[address] [place] [address]Dr. Kandielda Escobar Basophils/100 WBC (Bld) 0.8 % Normal 0.2-2.0 [facility] Comment on above: Performed By: #### C BC ####[facility] Fnpylvzwkh6074 [place] [address]Dr. Amina Escobar EO # 0.1 103/ul Normal 0.0-0.7 [facility] Comment on above: Performed By: #### C BC ####[facility] Mxkeakvewb5774 [place] [address]Dr. Amina Escobar Eosinophils/100 WBC (Bld) 1.8 % Normal 0.9-7.0 [facility] Comment on above: Performed By: #### C BC ####[facility] Xdjbifatxs9655 [place] [address]Dr. Amina Escobar Erythrocyte distribution width (RBC) [Ratio] 15.9 % Critically high 11.0-15.0 [facility] Comment on above: Performed By: #### C BC ####[facility] Anitfkqjhn[address] [place] [address]Dr. Amina Escobar Hematocrit (Bld) [Volume fraction] 24.7 % Critically low 42.0-54.0 [facility] Comment on above: Performed By: #### C BC ####[facility] Myanynesff4[address] [place] [address]Dr. Amina Escobar Hemoglobin (Bld) [Mass/Vol] 7.4 g/dL Critically low 14.0-18.0 [facility] Comment on above: Performed By: #### C BC ####[facility] Xdpjmhpgtp7[address] [place] [address]Dr. Amina Escobar IG # 0.02 10e3/ul Normal 0.00-0.03 [facility] Comment on above: Performed By: #### C BC ####[facility] Lgchskrutc[address] [place], [place] [address]Dr. Amina Escobar IG % 0.3 % Normal 0.0-0.5 [facility] Comment on above: Performed By: #### C BC ####[facility] Bkmnyzeqzh398453 [address] [place], [place] [address]Dr. Amina Escobar LYMPH # 0.7 103/ul Critically low 1.2-3.8 [facility] Comment on above: Performed By: #### C BC ####[facility] Eblottvnfi668[address] [place], [place] [address]Dr. Amina Escobar Lymphocytes/100 WBC (Bld) 10.6 % Critically low 20.5-60.0 [facility] Comment on above: Performed By: #### C BC ####[facility] Qrrwxhgmub130[address] [place], [place] [address]Dr. Amina Escobar MANUAL DIFF REQ NO Normal [facility] Comment on above: Performed By: #### C BC ####[facility] Pzyeujmqyg332[address] [place], [place] [address]Dr. Amina Escobar MCH (RBC) [Entitic mass] 29.1 pg Normal 25.9-34.0 [facility] Comment on above: Performed By: #### C BC ####[facility] Nlhhsuafwy3738[address] [place], [place] [address]Dr. Amina Escobar MCHC (RBC) [Mass/Vol] 30.0 g/dL Normal 29.9-35.2 [facility] Comment on above: Performed By: #### C BC ####[facility] X[address]kt[address] [place] [id number]. Amina Escobar MCV (RBC) [Entitic vol] 97.2 fL Critically high 80.0-94.0 [facility] Comment on above: Performed By: #### C BC ####[facility] Ceuqqhtumb[address] [place] [address]Dr. Amina Escobar MONO # 0.6 103/ul Normal 0.3-0.8 [facility] Comment on above: Performed By: #### C BC ####[facility] Cicfrtkrem[address] [place] [address]Dr. Amina Escobar Monocytes/100 WBC (Bld) 9.1 % Normal 1.7-12.0 [facility] Comment on above: Performed By: #### C BC ####[facility] Rtvtbivtdv966253 [address] [place], [place] [address]Dr. Amina Escobar NEUT # 4.8 103/ul Normal 1.4-6.5 [facility] Comment on above: Performed By: #### C BC ####[facility] Sikjknhbce5300[address] [place], [place] [address]Dr. Amina Escobar Neutrophils/100 WBC (Bld) 77.4 % Critically high 43.0-75.0 [facility] Comment on above: Performed By: #### C BC ####[facility] Aurxkqxvnx3901[address] [place], [place] [address]Dr. Amina Escobar Platelet mean volume (Bld) [Entitic vol] 10.4 fL Normal 9.5-13.5 [facility] Comment on above: Performed By: #### C BC ####[facility] Nsqaoordtl4[address] [place], [place] [id number]. Amina Escobar PLT 263 103/ul Normal 150-450 [facility] Comment on above: Performed By: #### C BC ####[facility] Sdbeppumja074[address] [place], [place] [address]Dr. Amina Shawn RBC 2.54 106/ul Critically low 4.70-6.10 [facility] Comment on above: Performed By: #### C BC ####[facility] Qejeqicdsv4069[address] [place], [place] [address]Dr. Amina Escobar WBC 6.1 103/ul Normal 4.0-11.0 [facility] Comment on above: Performed By: #### C BC ####[facility] Swnrbdwiim0975[address] [place], [place] [address]Dr. Amina Escobar HEMOGLOBIN AND HEMATOCRITon 06-23-2022 Hematocrit (Bld) [Volume fraction] 29.2 % Critically low 42.0-54.0 [facility] Comment on above: Performed By: #### H GBHCT ####[facility] Eolibvzltl815[address] [place], [place] [address]Dr. Amina Escobar Hemoglobin (Bld) [Mass/Vol] 9.3 g/dL Critically low 14.0-18.0 [facility] Comment on above: Performed By: #### H GBHCT ####[facility] Owqjqpmenf05[address] [place], [place] [address]Dr. Amina Escobar TYPE AND SCREENon 06-23-2022 TYPE AND SCREEN Negative Normal [facility] Comment on above: Performed By: #### T NS ####[facility] Owqswbofun518[address] [place], [place] [address]Dr. Amina Escobar CBC AUTO DIFFon 06-22-2022 BASO # 0.0 103/ul Normal 0.0-0.1 [facility] Comment on above: Performed By: #### C BC ####[facility] Cgstcsnivf1300[address] [place], [place] [address]Dr. Amina Escobar Basophils/100 WBC (Bld) 0.7 % Normal 0.2-2.0 [facility] Comment on above: Performed By: #### C BC ####[facility] Qkekwjsitu886[address] [place], [place] [address]Dr. Amina Escobar EO # 0.2 103/ul Normal 0.0-0.7 [facility] Comment on above: Performed By: #### C BC ####[facility] Ajpxoinasp585[address] [place], [place] [address]Dr. Amina Escobar Eosinophils/100 WBC (Bld) 3.2 % Normal 0.9-7.0 [facility] Comment on above: Performed By: #### C BC ####[facility] Kpuffirqmq386[address] [place], [place] [address]Dr. Amina Escobar Erythrocyte distribution width (RBC) [Ratio] 15.6 % Critically high 11.0-15.0 [facility] Comment on above: Performed By: #### C BC ####[facility] Dlqgfdccqh455[address] [place], [place] [address]Dr. Amina Escobar Hematocrit (Bld) [Volume fraction] 24.9 % Critically low 42.0-54.0 [facility] Comment on above: Performed By: #### C BC ####[facility] Uekxjdoule960[address] [place], [place] [address]Dr. Amina Escobar Hemoglobin (Bld) [Mass/Vol] 7.6 g/dL Critically low 14.0-18.0 [facility] Comment on above: Performed By: #### C BC ####[facility] Npajqbojjd0117[address] [place], [place] [address]Dr. Amina Escobar IG # 0.03 10e3/ul Normal 0.00-0.03 [facility] Comment on above: Performed By: #### C BC ####[facility] Fodnzvrnuc3665[address] [place], [place] [address]Dr. Amina Escobar IG % 0.5 % Normal 0.0-0.5 [facility] Comment on above: Performed By: #### C BC ####[facility] Iipqtqxpfn8612[address] [place], [place] [address]Dr. Amina Escobar LYMPH # 0.6 103/ul Critically low 1.2-3.8 [facility] Comment on above: Performed By: #### C BC ####[facility] Qhlbiacueg274[address] [place], [place] [address]Dr. Aimna Escobar Lymphocytes/100 WBC (Bld) 9.3 % Critically low 20.5-60.0 [facility] Comment on above: Performed By: #### C BC ####[facility] Kmdheuenkq918[address] [place], [place] [address]Dr. Amina Escobar MANUAL DIFF REQ NO Normal [facility] Comment on above: Performed By: #### C BC ####[facility] Nugacymllt[address] [place] [address]Dr. Amina Escobar MCH (RBC) [Entitic mass] 30.2 pg Normal 25.9-34.0 [facility] Comment on above: Performed By: #### C BC ####[facility] Zdtcenwgdp078[address] [place], [place] [address]Dr. Amina Escobar MCHC (RBC) [Mass/Vol] 30.5 g/dL Normal 29.9-35.2 [facility] Comment on above: Performed By: #### C BC ####[facility] Duwghzodnp933[address] [place], [place] [address]Dr. Amina Escobar MCV (RBC) [Entitic vol] 98.8 fL Critically high 80.0-94.0 [facility] Comment on above: Performed By: #### C BC ####[facility] Gdvvbsmfaq41965[address] [place], [place] [address]Dr. Amina Escobar MONO # 0.4 103/ul Normal 0.3-0.8 [facility] Comment on above: Performed By: #### C BC ####[facility] Qvlxnlqipr95[address] [place], [place] [address]Dr. Amina Escobar Monocytes/100 WBC (Bld) 6.4 % Normal 1.7-12.0 [facility] Comment on above: Performed By: #### C BC ####[facility] Ofyebimqem674[address] [place], [place] [address]Dr. Amina Escobar NEUT # 4.8 103/ul Normal 1.4-6.5 [facility] Comment on above: Performed By: #### C BC ####[facility] Uyoegktudf1255[address] [place], [place] [address]Dr. Amina Escobar Neutrophils/100 WBC (Bld) 79.9 % Critically high 43.0-75.0 [facility] Comment on above: Performed By: #### C BC ####[facility] Bntolciuds476[address] [place], [place] [address]Dr. Amina Escobar Platelet mean volume (Bld) [Entitic vol] 10.3 fL Normal 9.5-13.5 [facility] Comment on above: Performed By: #### C BC ####[facility] Sbcyztdkik968[address] [place], [place] [address]Dr. Amina Escobar PLT 205 103/ul Normal 150-450 [facility] Comment on above: Performed By: #### C BC ####[facility] Pbwejkickp5845[address] [place], [place] [address]Dr. Amina Escobar RBC 2.52 106/ul Critically low 4.70-6.10 [facility] Comment on above: Performed By: #### C BC ####[facility] Spvhbirjoy655353 [address] [place], [place] [address]Dr. Amina Escobar WBC 5.9 103/ul Normal 4.0-11.0 [facility] Comment on above: Performed By: #### C BC ####[facility] Xvqdfwryib794253 [address] [place], [place] [address]Dr. Amina Escobar CBC AUTO DIFFon 06-16-2022 BASO # 0.1 103/ul Normal 0.0-0.1 [facility] Comment on above: Performed By: #### C BC ####[facility] Rguondktds470[address] [place], [place] [address]Dr. Amina Shawn Basophils/100 WBC (Bld) 0.7 % Normal 0.2-2.0 [facility] Comment on above: Performed By: #### C BC ####[facility] Mhmyutoixo996[address] [place], [place] [address]Dr. Amina Escobar EO # 0.2 103/ul Normal 0.0-0.7 [facility] Comment on above: Performed By: #### C BC ####[facility] Xgrsyudtaa885[address] [place], [place] [address]Dr. Amina Shawn Eosinophils/100 WBC (Bld) 2.7 % Normal 0.9-7.0 [facility] Comment on above: Performed By: #### C BC ####[facility] Hsnzyeidam3410[address] [place], [place] [address]Dr. Amina Shawn Erythrocyte distribution width (RBC) [Ratio] 16.5 % Critically high 11.0-15.0 [facility] Comment on above: Performed By: #### C BC ####[facility] V[address]irntqww[address] [place] [address]Dr. Amina Escobar Hematocrit (Bld) [Volume fraction] 28.5 % Critically low 42.0-54.0 [facility] Comment on above: Performed By: #### C BC ####[facility] Cppikpvksj979[address] [place], [place] [address]DrMemo Amina Escobar Hemoglobin (Bld) [Mass/Vol] 8.6 g/dL Critically low 14.0-18.0 [facility] Comment on above: Performed By: #### C BC ####[facility] Qourtbpkji988[address] [place], [place] [address]DrMemo Escobar IG # 0.03 10e3/ul Normal 0.00-0.03 [facility] Comment on above: Performed By: #### C BC ####[facility] Mwayikgvdg059353 [address] [place], [place] [address]Dr. Kandielda Escobar IG % 0.4 % Normal 0.0-0.5 [facility] Comment on above: Performed By: #### C BC ####[facility] Lrdyfbqrge1915[address] [place], [place] [address]DrMemo Amina Escobar LYMPH # 0.8 103/ul Critically low 1.2-3.8 [facility] Comment on above: Performed By: #### C BC ####[facility] Hezfjnzfgi7930[address] [place], [place] [address]DrMemo Kandielda Escboar Lymphocytes/100 WBC (Bld) 11.1 % Critically low 20.5-60.0 [facility] Comment on above: Performed By: #### C BC ####[facility] Cfzvsdslzn199153 [address] [place], [place] [address]DrMemo Kandielda Escobar MANUAL DIFF REQ NO Normal [facility] Comment on above: Performed By: #### C BC ####[facility] Ffcqcufyxe189[address] [place], [place] [address]DrMemo Escobar MCH (RBC) [Entitic mass] 30.3 pg Normal 25.9-34.0 [facility] Comment on above: Performed By: #### C BC ####[facility] Nwggjooedi[address] [place] [address]Dr. Amina Escobar MCHC (RBC) [Mass/Vol] 30.2 g/dL Normal 29.9-35.2 [facility] Comment on above: Performed By: #### C BC ####[facility] Kiiiumjoqs8060[address] [place], [place] [address]DrMemo Escobar MCV (RBC) [Entitic vol] 100.4 fL Critically high 80.0-94.0 [facility] Comment on above: Performed By: #### C BC ####[facility] Nisdivecpc769[address] [place], [place] [address]DrMemo Escobar MONO # 0.6 103/ul Normal 0.3-0.8 [facility] Comment on above: Performed By: #### C BC ####[facility] Xugrwvjvzi5210[address] [place], [place] [address]Dr. Amina Escobar Monocytes/100 WBC (Bld) 8.4 % Normal 1.7-12.0 [facility] Comment on above: Performed By: #### C BC ####[facility] Qazhiadjwt3220[address] [place], [place] [address]DrMemo Escobar NEUT # 5.3 103/ul Normal 1.4-6.5 [facility] Comment on above: Performed By: #### C BC ####[facility] Gzizfvivin379[address] [place], [place] [address]DrMemo Escobar Neutrophils/100 WBC (Bld) 76.7 % Critically high 43.0-75.0 [facility] Comment on above: Performed By: #### C BC ####[facility] Wpifrpsrqy613[address] [place], [place] [address]DrMemo Escobar Platelet mean volume (Bld) [Entitic vol] 9.7 fL Normal 9.5-13.5 [facility] Comment on above: Performed By: #### C BC ####[facility] Yaisixwcbv049[address] [place], [place] [address]Dr. Amina Escobar PLT 216 103/ul Normal 150-450 [facility] Comment on above: Performed By: #### C BC ####[facility] Xtvhxrhbti2966 [place] [address]Dr. Amina Escobar RBC 2.84 106/ul Critically low 4.70-6.10 [facility] Comment on above: Performed By: #### C BC ####[facility] Eiaelmeuyi884[address] [place], [place] [address]Dr. Amina Escobar WBC 6.9 103/ul Normal 4.0-11.0 [facility] Comment on above: Performed By: #### C BC ####[facility] Epnevuyjcn819353 [address] [place], [place] [address]Dr. Amina Escobar CBC AUTO DIFFon 06-10-2022 BASO # 0.0 103/ul Normal 0.0-0.1 [facility] Comment on above: Performed By: #### C BC ####[facility] Qgxxjqfarx880253 [address] [place], [place] [address]Dr. Amina Shawn Basophils/100 WBC (Bld) 0.5 % Normal 0.2-2.0 [facility] Comment on above: Performed By: #### C BC ####[facility] Wnkyqewrdl185353 [address] [place], [place] [address]Dr. Amina Escobar EO # 0.1 103/ul Normal 0.0-0.7 [facility] Comment on above: Performed By: #### C BC ####[facility] Unhurhnljr6818[address] [place], [place] [address]Dr. Amina Shawn Eosinophils/100 WBC (Bld) 2.2 % Normal 0.9-7.0 [facility] Comment on above: Performed By: #### C BC ####[facility] Hxxtjjvvob2623[address] [place], [place] [address]DrMemo Amina Shawn Erythrocyte distribution width (RBC) [Ratio] 17.9 % Critically high 11.0-15.0 [facility] Comment on above: Performed By: #### C BC ####[facility] Pstarlcqhd957[address] [place], [place] [address]Dr. Amina Escobar Hematocrit (Bld) [Volume fraction] 24.5 % Critically low 42.0-54.0 [facility] Comment on above: Performed By: #### C BC ####[facility] Fvecdwutsg[address] [place] [address]Dr. Amina Escobar Hemoglobin (Bld) [Mass/Vol] 7.9 g/dL Critically low 14.0-18.0 [facility] Comment on above: Performed By: #### C BC ####[facility] Mgwfccnstw4[address] [place] [address]Dr. Amina Escobar IG # 0.02 10e3/ul Normal 0.00-0.03 [facility] Comment on above: Performed By: #### C BC ####[facility] Xfkfayibto5980 [place] [address]Dr. Amina Escobar IG % 0.3 % Normal 0.0-0.5 [facility] Comment on above: Performed By: #### C BC ####[facility] Izrpsfgjtf449[address] [place], [place] [address]DrMemo Escobar LYMPH # 0.8 103/ul Critically low 1.2-3.8 [facility] Comment on above: Performed By: #### C BC ####[facility] Nlnlnqgley616[address] [place], [place] [address]DrMemo Escobar Lymphocytes/100 WBC (Bld) 12.3 % Critically low 20.5-60.0 [facility] Comment on above: Performed By: #### C BC ####[facility] Zapwohygau0220[address] [place], [place] [address]DrMemo Escobar MANUAL DIFF REQ NO Normal [facility] Comment on above: Performed By: #### C BC ####[facility] Rcjwvphxxe664153 [address] [place], [place] [address]DrMemo Escobar MCH (RBC) [Entitic mass] 31.6 pg Normal 25.9-34.0 [facility] Comment on above: Performed By: #### C BC ####[facility] Xovtcztoex5938[address] [place], [place] [address]Dr. Amina Escobar MCHC (RBC) [Mass/Vol] 32.2 g/dL Normal 29.9-35.2 [facility] Comment on above: Performed By: #### C BC ####[facility] Kztbcyjmuf4264[address] [place], [place] [address]DrMemo Escobar MCV (RBC) [Entitic vol] 98.0 fL Critically high 80.0-94.0 [facility] Comment on above: Performed By: #### C BC ####[facility] Dtapaxkkwc818[address] [place], [place] [address]DrMemo Escobar MONO # 0.5 103/ul Normal 0.3-0.8 [facility] Comment on above: Performed By: #### C BC ####[facility] Vxhjtvhukl075[address] [place], [place] [address]DrMemo Escobar Monocytes/100 WBC (Bld) 8.6 % Normal 1.7-12.0 [facility] Comment on above: Performed By: #### C BC ####[facility] Mfesvafzpr9988[address] [place], [place] [address]Dr. Amina Escobar NEUT # 4.8 103/ul Normal 1.4-6.5 [facility] Comment on above: Performed By: #### C BC ####[facility] Jddlfzngjn687[address] [place], [place] [address]DrMemo Escobar Neutrophils/100 WBC (Bld) 76.1 % Critically high 43.0-75.0 [facility] Comment on above: Performed By: #### C BC ####[facility] Inynbzsenv979153 [address] [place], [place] [address]DrMemo Escobar Platelet mean volume (Bld) [Entitic vol] 10.4 fL Normal 9.5-13.5 [facility] Comment on above: Performed By: #### C BC ####[facility] Jqgyocxlev597[address] [place], [place] [address]DrMemo Escobar PLT 206 103/ul Normal 150-450 [facility] Comment on above: Performed By: #### C BC ####[facility] Stdgqdqfdp7217[address] [place], [place] [address]DrMemo Escobar RBC 2.50 106/ul Critically low 4.70-6.10 [facility] Comment on above: Performed By: #### C BC ####[facility] Laliqldlom8535[address] [place], [place] [address]Dr. Amina Escobar WBC 6.3 103/ul Normal 4.0-11.0 [facility] Comment on above: Performed By: #### C BC ####[facility] Runiakyrmh765[address] [place], [place] [address]Dr. Amina Escobar HEMOGLOBIN AND HEMATOCRITon 06-10-2022 Hematocrit (Bld) [Volume fraction] 27.8 % Critically low 42.0-54.0 [facility] Comment on above: Performed By: #### H GBHCT ####[facility] Hmepfmextp645[address] [place], [place] [address]Dr. Amina Escobar Hemoglobin (Bld) [Mass/Vol] 9.0 g/dL Critically low 14.0-18.0 [facility] Comment on above: Performed By: #### H GBHCT ####[facility] Jjjzqcqxsc0836[address] [place], [place] [address]Dr. Amina Escobar CBC AUTO DIFFon 06-09-2022 BASO # 0.0 103/ul Normal 0.0-0.1 [facility] Comment on above: Performed By: #### C BC ####[facility] Ywsnnsdpup0060[address] [place], [place] [address]Dr. Amina Escobar Basophils/100 WBC (Bld) 0.6 % Normal 0.2-2.0 [facility] Comment on above: Performed By: #### C BC ####[facility] Nipummmfwi629[address] [place], [place] [address]Dr. Amina Escobar EO # 0.1 103/ul Normal 0.0-0.7 [facility] Comment on above: Performed By: #### C BC ####[facility] Islwrnogwt2464[address] [place], [place] [address]Dr. Amina Escobar Eosinophils/100 WBC (Bld) 1.8 % Normal 0.9-7.0 [facility] Comment on above: Performed By: #### C BC ####[facility] Sjvqsyasik36[address] [place] [address]Dr. Amina Escobar Erythrocyte distribution width (RBC) [Ratio] 16.9 % Critically high 11.0-15.0 [facility] Comment on above: Performed By: #### C BC ####[facility] Iskfqhanpx4930[address] [place], [place] [address]Dr. Amina Escobar Hematocrit (Bld) [Volume fraction] 21.2 % Critically low 42.0-54.0 [facility] Comment on above: Performed By: #### C BC ####[facility] Yjegedxefm0812[address] [place], [place] [address]Dr. Amina Escobar Hemoglobin (Bld) [Mass/Vol] 6.4 g/dL Critically low 14.0-18.0 [facility] Comment on above: Performed By: #### C BC ####[facility] Jvgaencrku064[address] [place], [place] [address]Dr. Amina Escobar IG # 0.03 10e3/ul Normal 0.00-0.03 [facility] Comment on above: Performed By: #### C BC ####[facility] Avaejdonko458[address] [place], [place] [address]Dr. Amina Escobar IG % 0.5 % Normal 0.0-0.5 [facility] Comment on above: Performed By: #### C BC ####[facility] Biesqcarbh3924[address] [place], [place] [address]Dr. Amina Escobar LYMPH # 0.6 103/ul Critically low 1.2-3.8 [facility] Comment on above: Performed By: #### C BC ####[facility] Ryniwvhvyb398[address] [place], [place] [address]Dr. Amina Escobar Lymphocytes/100 WBC (Bld) 8.9 % Critically low 20.5-60.0 [facility] Comment on above: Performed By: #### C BC ####[facility] Pzmsrolpfh205[address] [place], [place] [address]Dr. Amina Escobar MANUAL DIFF REQ NO Normal [facility] Comment on above: Performed By: #### C BC ####[facility] Y[address]abcnhjji[address] [place] [address]Dr. Amina Shawn MCH (RBC) [Entitic mass] 31.1 pg Normal 25.9-34.0 [facility] Comment on above: Performed By: #### C BC ####[facility] Kmgbeeojml39[address] [place] [address]Dr. Amina Shawn MCHC (RBC) [Mass/Vol] 30.2 g/dL Normal 29.9-35.2 [facility] Comment on above: Performed By: #### C BC ####[facility] Fteooienfz28[address] [place] [address]Dr. Kandielda Escobar MCV (RBC) [Entitic vol] 102.9 fL Critically high 80.0-94.0 [facility] Comment on above: Performed By: #### C BC ####[facility] Spegkyqxyd146[address] [place], [place] [address]Dr. Amina Escobar MONO # 0.4 103/ul Normal 0.3-0.8 [facility] Comment on above: Performed By: #### C BC ####[facility] Xymqiospnn4710[address] [place], [place] [address]Dr. Amina Escobar Monocytes/100 WBC (Bld) 6.6 % Normal 1.7-12.0 [facility] Comment on above: Performed By: #### C BC ####[facility] Kjvixqlmvl154[address] [place], [place] [address]Dr. Amina Escobar NEUT # 5.4 103/ul Normal 1.4-6.5 [facility] Comment on above: Performed By: #### C BC ####[facility] Nxclzvasxr85[address] [place], [place] [address]Dr. Amina Escobar Neutrophils/100 WBC (Bld) 81.6 % Critically high 43.0-75.0 [facility] Comment on above: Performed By: #### C BC ####[facility] Rcrrbcxmxq2340[address] [place], [place] [address]Dr. Amina Escobar Platelet mean volume (Bld) [Entitic vol] 9.7 fL Normal 9.5-13.5 [facility] Comment on above: Performed By: #### C BC ####[facility] Jediylkyau[address] [place] [address]Dr. Amina Escobar PLT 201 103/ul Normal 150-450 [facility] Comment on above: Performed By: #### C BC ####[facility] Ejdtlsaupk[address] [place] [address]Dr. Amina Escobar RBC 2.06 106/ul Critically low 4.70-6.10 [facility] Comment on above: Performed By: #### C BC ####[facility] Gucaptfkbj[address] [place] [address]Dr. Amina Escobar WBC 6.6 103/ul Normal 4.0-11.0 [facility] Comment on above: Performed By: #### C BC ####[facility] H[address]zelaofdl[address] [place], [place] [address]Dr. Amina Escobar TYPE AND SCREENon 06-09-2022 TYPE AND SCREEN Negative Normal [facility] Comment on above: Performed By: #### T NS ####[facility] Ulwpwdgwig6[address] [place], [place] [address]Dr. Amina Escobar CBC AUTO DIFFon 06-02-2022 BASO # 0.1 103/ul Normal 0.0-0.1 [facility] Comment on above: Performed By: #### C BC ####[facility] Nwmjjzhwop9[address] [place], [place] [address]Dr. Amina Escobar Basophils/100 WBC (Bld) 0.6 % Normal 0.2-2.0 [facility] Comment on above: Performed By: #### C BC ####[facility] Gyepiipmlv[address] [place] [address]Dr. Amina Escobar EO # 0.2 103/ul Normal 0.0-0.7 [facility] Comment on above: Performed By: #### C BC ####[facility] Smvcoljnax3[address] [place], [place] [address]Dr. Amina Escobar Eosinophils/100 WBC (Bld) 2.5 % Normal 0.9-7.0 [facility] Comment on above: Performed By: #### C BC ####[facility] Brtiutjpeb146[address] [place], [place] [address]Dr. Amina Escobar Erythrocyte distribution width (RBC) [Ratio] 17.6 % Critically high 11.0-15.0 [facility] Comment on above: Performed By: #### C BC ####[facility] Ufanvkenam455[address] [place], [place] [address]Dr. Amina Escobar Hematocrit (Bld) [Volume fraction] 26.6 % Critically low 42.0-54.0 [facility] Comment on above: Performed By: #### C BC ####[facility] Slhqxkzimg7580[address] [place], [place] [address]Dr. Amina Escobar Hemoglobin (Bld) [Mass/Vol] 8.2 g/dL Critically low 14.0-18.0 [facility] Comment on above: Performed By: #### C BC ####[facility] Pihacnytrc08[address] [place], [place] [address]Dr. Amina Escobar IG # 0.04 10e3/ul Critically high 0.00-0.03 [facility] Comment on above: Performed By: #### C BC ####[facility] Wbaehutkfq[address] [place], [place] [address]Dr. Amina Escobar IG % 0.5 % Normal 0.0-0.5 [facility] Comment on above: Performed By: #### C BC ####[facility] Dbokjqpltc701[address] [place], [place] [address]Dr. Amina Escobar LYMPH # 0.7 103/ul Critically low 1.2-3.8 [facility] Comment on above: Performed By: #### C BC ####[facility] Iyophbsovk[address] [place], [place] [address]Dr. Amina Escobar Lymphocytes/100 WBC (Bld) 8.5 % Critically low 20.5-60.0 [facility] Comment on above: Performed By: #### C BC ####[facility] Dotgxdlodg787[address] [place], [place] [address]Dr. Amina Escobar MANUAL DIFF REQ NO Normal [facility] Comment on above: Performed By: #### C BC ####[facility] Hbjlyknemb44[address] [place] [address]Dr. Amina Shawn MCH (RBC) [Entitic mass] 31.7 pg Normal 25.9-34.0 [facility] Comment on above: Performed By: #### C BC ####[facility] Ajdfxujywi[address] [place] [address]Dr. Amina Shawn MCHC (RBC) [Mass/Vol] 30.8 g/dL Normal 29.9-35.2 [facility] Comment on above: Performed By: #### C BC ####[facility] Bbqgquexmd64[address] [place] [address]Dr. Kandielda Escobar MCV (RBC) [Entitic vol] 102.7 fL Critically high 80.0-94.0 [facility] Comment on above: Performed By: #### C BC ####[facility] Epqjwauwwh158[address] [place], [place] [address]Dr. Amina Escobar MONO # 0.6 103/ul Normal 0.3-0.8 [facility] Comment on above: Performed By: #### C BC ####[facility] Sdwltmntsf097[address] [place], [place] [address]Dr. Amina Escobar Monocytes/100 WBC (Bld) 8.0 % Normal 1.7-12.0 [facility] Comment on above: Performed By: #### C BC ####[facility] Jaozzzothq168[address] [place], [place] [address]Dr. Amina Escobar NEUT # 6.4 103/ul Normal 1.4-6.5 [facility] Comment on above: Performed By: #### C BC ####[facility] Luqqdwxtgm729[address] [place], [place] [address]Dr. Amina Escobar Neutrophils/100 WBC (Bld) 79.9 % Critically high 43.0-75.0 [facility] Comment on above: Performed By: #### C BC ####[facility] Rwogcrxske209[address] [place], [place] [address]Dr. Amina Escobar Platelet mean volume (Bld) [Entitic vol] 10.1 fL Normal 9.5-13.5 [facility] Comment on above: Performed By: #### C BC ####[facility] Ampdwhjgkr28[address] [place] [address]Dr. Amina Escobar PLT 211 103/ul Normal 150-450 [facility] Comment on above: Performed By: #### C BC ####[facility] Ocyrfzgibb70[address] [place] [address]Dr. Amina Escobar RBC 2.59 106/ul Critically low 4.70-6.10 [facility] Comment on above: Performed By: #### C BC ####[facility] Yymdejnpmg54[address] [place] [address]Dr. Amina Escobar WBC 8.0 103/ul Normal 4.0-11.0 [facility] Comment on above: Performed By: #### C BC ####[facility] Cywpodcygq780[address] [place], [place] [address]Dr. Amina Escobar CBC W MANUAL DIFFon 05-28-20 22 ANISOCYTOSIS 1+ Normal [facility] Comment on above: Performed By: #### C BCMAN ####[facility] Nlzjcllcjt634[address] [place], [place] [address]Dr. Amina Escobar ATYPICAL LYMPH # Normal [facility] Comment on above: Performed By: #### C BCMAN ####[facility] Ejhziyjnou957[address] [place], [place] [address]Dr. Amina Escobar ATYPICAL LYMPH % Normal [facility] Comment on above: Performed By: #### C BCMAN ####[facility] Ggrojzvaoz982[address] [place], [place] [address]Dr. Amina Escobar BAND # 0.0 103/ul Normal 0.0-0.3 [facility] Comment on above: Performed By: #### C BCMAN ####[facility] Pyjhpyuhas4437[address] [place], [place] [address]Dr. Amina Escobar BAND % 0 % Normal 0-5 [facility] Comment on above: Performed By: #### C BCMAN ####[facility] Uyfbdzghdd385[address] [place], [place] [address]Dr. Amina Escobar BASOM # 0.06 103/ul Normal 0.00-0.10 [facility] Comment on above: Performed By: #### C ALEX ####[facility] Flbqvfzugq8886 [place] [address]Dr. Amina Escobar BASOM % 1.0 % Normal 0.2-2.0 [facility] Comment on above: Performed By: #### C ALEX ####[facility] Pdmxcymvaf65[address] [place] [address]Dr. Amina Escobar BLAST # Normal [facility] Comment on above: Performed By: #### C ALEX ####[facility] Otyhnngkgr025[address] [place] [address]Dr. Amina Escobar BLAST % Normal [facility] Comment on above: Performed By: #### C ALEX ####[facility] Yfqvxzmdpl20[address] [place], [place] [address]Dr. Amina Escobar CORRECTED WBC Normal 4.0-11.0 [facility] Comment on above: Performed By: #### C ALEX ####[facility] Bvbemncxfs912[address] [place], [place] [address]Dr. Amina Escobar EOS # 0.06 103/ul Normal 0.00-0.70 [facility] Comment on above: Performed By: #### C ALEX ####[facility] Vgxdqiutbt5516[address] [place], [place] [address]Dr. Amina Escobar EOS% 1.0 % Normal 0.9-7.0 [facility] Comment on above: Performed By: #### C ALEX ####[facility] Lxqdjdtfyh3738[address] [place], [place] [address]Dr. Amina Escobar HCT 26.6 % Critically low 42.0-54.0 [facility] Comment on above: Performed By: #### C ALEX ####[facility] Sksitkoves923[address] [place], [place] [address]Dr. Amina Escobar HGB 8.5 g/dl Critically low 14.0-18.0 [facility] Comment on above: Performed By: #### C ALEX ####[facility] Jetddorucg793[address] [place], [place] [address]Dr. Amina Escobar HYPOCHROMASIA 1+ Normal [facility] Comment on above: Performed By: #### Florence JOHNSON ####[facility] Lazwiyrktg[address] [place] [address]Dr. Amina Escobar LYMPHM # 0.93 103/ul Critically low 1.20-3.80 [facility] Comment on above: Performed By: #### Florence JOHNSON ####[facility] Pxdnxehmsz40[address] [place] [address]Dr. Amina Escobar LYMPHM% 15.0 % Critically low 20.5-60.0 [facility] Comment on above: Performed By: #### Florence JOHNSON ####[facility] Vgjiwefyfd2243 [place] [address]Dr. Amina Escobar MCH 31.3 pg Normal 25.9-34.0 [facility] Comment on above: Performed By: #### Florence JOHNSON ####[facility] Zgbesqzblt25[address] [place] [address]Dr. Amina Escobar MCHC 32.0 g/dl Normal 29.9-35.2 [facility] Comment on above: Performed By: #### Florence JOHNSON ####[facility] Wixexzhbqv04[address] [place] [address]Dr. Amina Escobar MCV 97.8 fL Critically high 80.0-94.0 [facility] Comment on above: Performed By: #### Florence JOHNSON ####[facility] Mnvmmfyhho7[address] [place] [address]Dr. Amina Escobar METAMYELOCYTE # Normal [facility] Comment on above: Performed By: #### Florence JOHNSON ####[facility] Rgjpvxxmnr9064 [place] [address]Dr. Amina Escobar METAMYELOCYTE % Normal [facility] Comment on above: Performed By: #### Florence JOHNSON ####[facility] Prdmsprsou32[address] [place] [address]Dr. Amina Escobar MONOM# 0.50 103/ul Normal 0.30-0.80 [facility] Comment on above: Performed By: #### Florence JOHNSON ####[facility] Enswrterff2613 [place], [place] [address]Ly. Amina Escobar MONOM% 8.0 % Normal 1.7-12.0 [facility] Comment on above: Performed By: #### C ALEX ####[facility] Kohhitjvhw7785 [place] [address]Dr. Amina Escobar MPV 10.2 fL Normal 9.5-13.5 [facility] Comment on above: Performed By: #### C ALEX ####[facility] Fqftxgqbtx8461 [place] [address]Dr. Amina Escobar MYELOCYTE # Normal [facility] Comment on above: Performed By: #### C ALEX ####[facility] Pncdtpsymv2772 [place] [address]Dr. Amina Escobar MYELOCYTE % Normal [facility] Comment on above: Performed By: #### Florence JOHNSON ####[facility] Lczkneaiaf8436 [place] [address]Dr. Amina Escobar NRBC Normal [facility] Comment on above: Performed By: #### Florence JOHNSON ####[facility] Rljbvvllls9451 [place] [address]Dr. Amina Escobar PLT 194 103/ul Normal 150-450 [facility] Comment on above: Performed By: #### C ALEX ####[facility] Rdcnengxbu1061 [place] [address]Dr. Amina Escobar RBC 2.72 106/ul Critically low 4.70-6.10 [facility] Comment on above: Performed By: #### C ALEX ####[facility] Zrjseqnqnn9521 [place] [address]Dr. Amina Escobar RDW 18.6 % Critically high 11.0-15.0 [facility] Comment on above: Performed By: #### C ALEX ####[facility] Auovlycxis8488 [place] [address]Dr. Amina Escobar SEG # 4.65 103/ul Normal 1.40-6.50 [facility] Comment on above: Performed By: #### C ALEX ####[facility] Ebfowroqax6617 [place] [address]Dr. Amina Escobar SEG % 75.0 % Normal 43.0-75.0 [facility] Comment on above: Performed By: #### C BCMAN ####[facility] Blucmuekag4795 [place] [address]Dr. Amina Escobar WBC 6.2 103/ul Normal 4.0-11.0 [facility] Comment on above: Performed By: #### C BCMAN ####[facility] Xdhkaftxsx34[address] [place], [place] [address]Dr. Amina Escobar TYPE AND SCREENon 05-28-2022 TYPE AND SCREEN Negative Normal [facility] Comment on above: Performed By: #### T NS ####[facility] Xgehobewmg549[address] [place], [place] [address]Dr. Amina Escobar CBC AUTO DIFFon 05-26-2022 BASO # 0.1 103/ul Normal 0.0-0.1 [facility] Comment on above: Performed By: #### C BC ####[facility] Skncteqwvt409[address] [place], [place] [address]Dr. Amina Escobar Basophils/100 WBC (Bld) 0.7 % Normal 0.2-2.0 [facility] Comment on above: Performed By: #### C BC ####[facility] Tgelznhsdt0435[address] [place], [place] [address]Dr. Amina Escobar EO # 0.2 103/ul Normal 0.0-0.7 [facility] Comment on above: Performed By: #### C BC ####[facility] Wdxjzroveb2024[address] [place], [place] [address]Dr. Amina Escobar Eosinophils/100 WBC (Bld) 3.0 % Normal 0.9-7.0 [facility] Comment on above: Performed By: #### C BC ####[facility] Vdhlldmppe7109[address] [place], [place] [address]Dr. Amina Escobar Erythrocyte distribution width (RBC) [Ratio] 18.9 % Critically high 11.0-15.0 [facility] Comment on above: Performed By: #### C BC ####[facility] Hwrvlacruz3836 [place] [address]Dr. Amina Escobar Hematocrit (Bld) [Volume fraction] 25.5 % Critically low 42.0-54.0 [facility] Comment on above: Performed By: #### C BC ####[facility] Vdfqlakcqx6181 [place] [address]Dr. Amina Escobar Hemoglobin (Bld) [Mass/Vol] 7.5 g/dL Critically low 14.0-18.0 [facility] Comment on above: Performed By: #### C BC ####[facility] Ulszqptsbo938[address] [place], [place] [address]Dr. Amina Escobar IG # 0.03 10e3/ul Normal 0.00-0.03 [facility] Comment on above: Performed By: #### C BC ####[facility] Doxrruueqy559[address] [place], [place] [address]Dr. Amina Escobar IG % 0.4 % Normal 0.0-0.5 [facility] Comment on above: Performed By: #### C BC ####[facility] Itndggczug556[address] [place], [place] [address]Dr. Amina Escobar LYMPH # 0.8 103/ul Critically low 1.2-3.8 [facility] Comment on above: Performed By: #### C BC ####[facility] Fyewhgeoli536[address] [place], [place] [address]Dr. Amina Escobar Lymphocytes/100 WBC (Bld) 10.4 % Critically low 20.5-60.0 [facility] Comment on above: Performed By: #### C BC ####[facility] Jqbcliusss108[address] [place], [place] [address]Dr. Amina Escobar MANUAL DIFF REQ NO Normal [facility] Comment on above: Performed By: #### C BC ####[facility] Faajovqghw457[address] [place], [place] [address]Dr. Amina Escobar MCH (RBC) [Entitic mass] 29.8 pg Normal 25.9-34.0 [facility] Comment on above: Performed By: #### C BC ####[facility] Pnyicsvlmf9069 [place] [address]Dr. Amina Shawn MCHC (RBC) [Mass/Vol] 29.4 g/dL Critically low 29.9-35.2 [facility] Comment on above: Performed By: #### C BC ####[facility] Uniybhkqjb5006 [place] [address]Dr. Kandielda Escobar MCV (RBC) [Entitic vol] 101.2 fL Critically high 80.0-94.0 [facility] Comment on above: Performed By: #### C BC ####[facility] Ehesysknub[address] [place] [address]Dr. Amina Escobar MONO # 0.6 103/ul Normal 0.3-0.8 [facility] Comment on above: Performed By: #### C BC ####[facility] Ymuvmcqeix8340[address] [place], [place] [address]Dr. Amina Escobar Monocytes/100 WBC (Bld) 8.0 % Normal 1.7-12.0 [facility] Comment on above: Performed By: #### C BC ####[facility] Nasvdkxnoh972[address] [place], [place] [address]Dr. Amina Escobar NEUT # 5.7 103/ul Normal 1.4-6.5 [facility] Comment on above: Performed By: #### C BC ####[facility] Npuqoaeltv68[address] [place], [place] [address]Dr. Amina Escobar Neutrophils/100 WBC (Bld) 77.5 % Critically high 43.0-75.0 [facility] Comment on above: Performed By: #### C BC ####[facility] Dmkwgywhdh554[address] [place], [place] [address]Dr. Amina Escobar Platelet mean volume (Bld) [Entitic vol] 10.2 fL Normal 9.5-13.5 [facility] Comment on above: Performed By: #### C BC ####[facility] Rnrphpqwjc22[address] [place], [place] [address]Dr. Amina Escobar PLT 215 103/ul Normal 150-450 [facility] Comment on above: Performed By: #### C BC ####[facility] Lephxkhekx9957 [place] [address]Dr. Amina Escobar RBC 2.52 106/ul Critically low 4.70-6.10 [facility] Comment on above: Performed By: #### C BC ####[facility] Wfetnrdoru5319 [place] [address]Dr. Amina Escobar WBC 7.3 103/ul Normal 4.0-11.0 [facility] Comment on above: Performed By: #### C BC ####[facility] Yweamakfmv8606 [place] [address]Dr. Amina Escobar IRON AND TIBCon 05-26-2022 % SATURATION 13.6 % Normal [facility] Comment on above: Performed By: #### F ETIBC ####[facility] Uimnzzpmcg2163 [place] [address]Dr. Amina Escobar Iron [Mass/Vol] 36.0 ug/dL Critically low 65.0-175.0 [facility] Comment on above: Performed By: #### F ETIBC ####[facility] Azggqwruml9644 [place] [address]Dr. Amina Escobar TIBC DIRECT 265.0 ug/dL Normal 250.0-450. 0 [facility] Comment on above: Performed By: #### F ETIBC ####[facility] Mwyemccwix4069 [place] [address]Dr. Amina Escobar HEMOGLOBINon 05-18-2022 Hemoglobin (Bld) [Mass/Vol] 8.1 g/dL Critically low 14.0-18.0 [facility] Comment on above: Performed By: #### H GB ####[facility] Kierxiaopa4348 [place] [address]Dr. Amina Escobar CBC W MANUAL DIFFon 05-09-20 22 ATYPICAL LYMPH # Normal [facility] Comment on above: Performed By: #### C BCMAN ####[facility] Nvnuvbompr4276 [place] [address]Dr. Amina Escobar ATYPICAL LYMPH % Normal [facility] Comment on above: Performed By: #### C BCMAN ####[facility] Tdorsbbutc86[address] [place] [address]Dr. Yilan Escobar BAND # 0.0 103/ul Normal 0.0-0.3 [facility] Comment on above: Performed By: #### C ALEX ####[facility] Esjngyauqo27[address] [place] [address]Dr. Yilan Ecsobar BAND % 0 % Normal 0-5 [facility] Comment on above: Performed By: #### C BCKELLY ####[facility] Oihcjjzcna029[address] [place], [place] [address]Dr. Yilan Escobar BASOM # 0.00 103/ul Normal 0.00-0.10 [facility] Comment on above: Performed By: #### C ALEX ####[facility] Xhfyzxphwl209[address] [place], [place] [address]Dr. Yielda Escobar BASOM % 0.0 % Critically low 0.2-2.0 [facility] Comment on above: Performed By: #### C ALEX ####[facility] Cuavroqjls[address] [place], [place] [address]Dr. Yilan Escobar BLAST # Normal [facility] Comment on above: Performed By: #### C ALEX ####[facility] Mjadrnhivx387[address] [place], [place] [address]Dr. Yilan Escobar BLAST % Normal [facility] Comment on above: Performed By: #### C ALEX ####[facility] Xciecttgdb667[address] [place], [place] [address]Dr. Amina Escobar CORRECTED WBC Normal 4.0-11.0 [facility] Comment on above: Performed By: #### C ALEX ####[facility] Ftgrglmzpk58[address] [place], [place] [address]Dr. Yielda Escobar EOS # 0.34 103/ul Normal 0.00-0.70 [facility] Comment on above: Performed By: #### C ALEX ####[facility] Mpswzykvoq7865[address] [place], [place] [address]Dr. Yilan Escobar EOS% 4.0 % Normal 0.9-7.0 [facility] Comment on above: Performed By: #### C ALEX ####[facility] Uoipwvojsk2412 [place], [place] [address]Xp. Amina Escobar HCT 28.2 % Critically low 42.0-54.0 [facility] Comment on above: Performed By: #### C ALEX ####[facility] Irltgqpmay1039 [place], [place] [address]Cf. Amina Escobar HGB 8.8 g/dl Critically low 14.0-18.0 [facility] Comment on above: Performed By: #### C ALEX ####[facility] Uyelkirslm9292 [place], [place] [address]Zx. Amina Escobar LYMPHM # 0.17 103/ul Critically low 1.20-3.80 [facility] Comment on above: Performed By: #### C ALEX ####[facility] Eayktnizya2496 [place], [place] [address]Ym. Amina Escobar LYMPHM% 2.0 % Critically low 20.5-60.0 [facility] Comment on above: Performed By: #### C ALEX ####[facility] Ijwbxawsvz6755 [place], [place] [address]Xq. Amina Escobar MCH 29.2 pg Normal 25.9-34.0 [facility] Comment on above: Performed By: #### C ALEX ####[facility] Bykdtlcqqe6166 [place], [place] [address]Ba. Amina Escobar MCHC 31.2 g/dl Normal 29.9-35.2 [facility] Comment on above: Performed By: #### C ALEX ####[facility] Haucozeilm2390 [place], [place] [address]Mu. Amina Escobar MCV 93.7 fL Normal 80.0-94.0 [facility] Comment on above: Performed By: #### C ALEX ####[facility] Bveccuxiej0460 [place] [address]Dr. Amina Escobar METAMYELOCYTE # Normal [facility] Comment on above: Performed By: #### C ALEX ####[facility] Beivvkukcw6820 [place] [address]Dr. Amina Escobar METAMYELOCYTE % Normal [facility] Comment on above: Performed By: #### C ALEX ####[facility] Ircnfeqaqu9853 [place] [address]Dr. Amina Escobar MONOM# 0.26 103/ul Critically low 0.30-0.80 [facility] Comment on above: Performed By: #### C ALEX ####[facility] Xoqfwzjjmq4591 [place] [address]Dr. Amina Escobar MONOM% 3.0 % Normal 1.7-12.0 [facility] Comment on above: Performed By: #### C ALEX ####[facility] Hgobhgggfp8498 [place] [address]Dr. Amina Escobar MPV 9.9 fL Normal 9.5-13.5 [facility] Comment on above: Performed By: #### C ALEX ####[facility] Igmndzwiia[address] [place], [place] [id number]. Amina Escobar MYELOCYTE # Normal [facility] Comment on above: Performed By: #### C ALEX ####[facility] [address]brka[address] [place] [id number]. Amina Escobar MYELOCYTE % Normal [facility] Comment on above: Performed By: #### C ALEX ####[facility] Gohzzalwmk10[address] [place] [address]Dr. Amina Escobar NRBC Normal [facility] Comment on above: Performed By: #### C ALEX ####[facility] Jysgcmuxmc28[address] [place] [address]Dr. Amina Escobar OVALOCYTES 2+ Normal [facility] Comment on above: Performed By: #### C ALEX ####[facility] Stjgcombgu8[address] [place] [address]Dr. Amina Escobar PLT 287 103/ul Normal 150-450 [facility] Comment on above: Performed By: #### C ALEX ####[facility] Vqshucwzqy9970 [place] [address]Dr. Amina Escobar RBC 3.01 106/ul Critically low 4.70-6.10 [facility] Comment on above: Performed By: #### C ALEX ####[facility] Xobcrhdqsk3547 [place] [address]Dr. Amina Escobar RDW 18.6 % Critically high 11.0-15.0 [facility] Comment on above: Performed By: #### C ALEX ####[facility] Drwcubpycp2080 [place] [address]Dr. Amina Escobar SCHISTOCYTES SLIGHT Normal [facility] Comment on above: Performed By: #### C ALEX ####[facility] Kcfkwusncf[address] [place] [address]Dr. Amina Escobar SEG # 7.74 103/ul Critically high 1.40-6.50 [facility] Comment on above: Performed By: #### C ALEX ####[facility] Cmllojhiav72[address] [place], [place] [address]Dr. Amina Escobar SEG % 91.0 % Critically high 43.0-75.0 [facility] Comment on above: Performed By: #### C ALEX ####[facility] Gknpyagoww3699[address] [place], [place] [address]Dr. Amina Escobar TOXIC GRANULATION 1+ Normal [facility] Comment on above: Performed By: #### C ALEX ####[facility] Xuwocpczsr4918 [place] [address]Dr. Amina Escobar WBC 8.5 103/ul Normal 4.0-11.0 [facility] Comment on above: Performed By: #### C ALEX ####[facility] Wtinmkerkb844[address] [place], [place] [address]Dr. Amina Escobar ER URINE PROFILEon 2 Bilirubin Ql (U) Negative Normal NEGATIVE [facility] Comment on above: Performed By: #### E RUR ####[facility] Naxztfleyi468[address] [place], [place] [address]Dr. Amina Shawn Clarity (U) CLEAR Normal CLEAR [facility] Comment on above: Performed By: #### E RUR ####[facility] Xyxvztridy722[address] [place], [place] [address]Dr. Amina Escobar Color (U) LT. YELLOW Normal YELLOW [facility] Comment on above: Performed By: #### E RUR ####[facility] Jtsueirtne997[address] [place], [place] [address]Dr. Amina Escobar ERUAHD A micrscopic examina tion will be performed if indicated. Normal [facility] Comment on above: Performed By: #### E RUR ####[facility] Vleysqrcdu6575[address] [place], [place] [address]Dr. Amina Escobar Glucose Ql (U) Negative Normal NEGATIVE [facility] Comment on above: Performed By: #### E RUR ####[facility] Tmmpipxvvr5811[address] [place], [place] [address]Dr. Amina Escobar Hemoglobin Ql (U) Negative Normal NEGATIVE [facility] Comment on above: Performed By: #### E RUR ####[facility] Ieocdfityz5627[address] [place], [place] [address]Dr. Amina Escobar Ketones Ql (U) Negative Normal NEGATIVE [facility] Comment on above: Performed By: #### E RUR ####[facility] Jykriplcjs9000[address] [place], [place] [address]Dr. Amina Escobar LEUKOCYTES Negative Normal NEGATIVE [facility] Comment on above: Performed By: #### E RUR ####[facility] Zjkuwxlenb512[address] [place], [place] [address]Dr. Amina Escobar Nitrite Ql (U) Negative Normal NEGATIVE [facility] Comment on above: Performed By: #### E RUR ####[facility] Dxcbguuben024[address] [place], [place] [address]Dr. Amina Escobar pH (U) 5.5 [pH] Normal 5-9 [facility] Comment on above: Performed By: #### E RUR ####[facility] Wlusyyllet419[address] [place], [place] [address]Dr. Amina Escobar SPEC GRAVITY 1.010 Normal 1.005-<=1. 025 [facility] Comment on above: Performed By: #### E RUR ####[facility] Wnwprvwlkl106[address] [place], [place] [address]Dr. Amina Escobar UA PROTEIN Negative Normal NEGATIVE/ TRACE [facility] Comment on above: Performed By: #### E RUR ####[facility] Ajcuckcjpd[address] [place] [address]Dr. Amina Escobar UR MICRO IND NOT INDICATED Normal [facility] Comment on above: Performed By: #### E RUR ####[facility] Tcioohnbaw25[address] [place] [address]Dr. Amina Escobar Urobilinogen Qn (U) 0.2 {Mel'U}/dL Normal 0.2 - 1. 0 [facility] Comment on above: Performed By: #### E RUR ####[facility] Tbsxttnckl006[address] [place], [place] [address]Dr. Amina Escobar FERRITINon 05-09-2022 Ferritin [Mass/Vol] 132.0 ng/mL Normal 26.0-388.0 [facility] Comment on above: Performed By: #### F ERR, FETIBC ####[facility] Ypbwcegetf520[address] [place], [place] [address]Dr. Amina Escobar IRON AND TIBCon 05-09-2022 % SATURATION 11.4 % Normal [facility] Comment on above: Performed By: #### F ERR, FETIBC ####[facility] Piofnmxhjd057[address] [place], [place] [address]Dr. Amina Escobar Iron [Mass/Vol] 33.0 ug/dL Critically low 65.0-175.0 [facility] Comment on above: Performed By: #### F ERR, FETIBC ####[facility] Gshpseadeo304[address] [place], [place] [address]Dr. Amina Escobar TIBC DIRECT 290.0 ug/dL Normal 250.0-450. 0 [facility] Comment on above: Performed By: #### F ERR, FETIBC ####[facility] Itaqfwrzkb9585[address] [place], [place] [address]Dr. Amina Escobar PROF 14(COMP METB)on 022 Albumin [Mass/Vol] 3.1 g/dL Critically low 3.4-5.0 [facility] Comment on above: Performed By: #### C MP ####[facility] Argmogswxr6754 [place] [address]Dr. Amina Escobar Albumin/Globulin [Mass ratio] 0.8 {ratio} Normal [facility] Comment on above: Performed By: #### C MP ####[facility] Hfktzqrxpz9172 [place] [address]Dr. Amina Escobar ALP [Catalytic activity/Vol] 166 U/L Critically high 46-116 [facility] Comment on above: Performed By: #### C MP ####[facility] Glxqisqhva5137 [place] [address]Dr. Amina Escobar ALT [Catalytic activity/Vol] 22 U/L Normal 16-63 [facility] Comment on above: Performed By: #### C MP ####[facility] Bthymfwiuh733[address] [place], [place] [address]Dr. Amina Escobar Anion gap [Moles/Vol] 12.5 mmol/L Normal [facility] Comment on above: Performed By: #### C MP ####[facility] Sdgpzehebg918[address] [place], [place] [address]Dr. Amina Escobar AST [Catalytic activity/Vol] 14 U/L Critically low 15-37 [facility] Comment on above: Performed By: #### C MP ####[facility] Sfxwiezaaf0185[address] [place], [place] [address]Dr. Amina Escobar Bilirubin [Mass/Vol] 0.7 mg/dL Normal 0.2-1.0 [facility] Comment on above: Performed By: #### C MP ####[facility] Heewlelyir3424[address] [place], [place] [address]Dr. Amina Escobar Calcium [Mass/Vol] 8.5 mg/dL Normal 8.5-10.1 [facility] Comment on above: Performed By: #### C MP ####[facility] Anlvvvuglg560[address] [place], [place] [address]Dr. Amina Shawn Chloride [Moles/Vol] 108 mmol/L Critically high 98-107 [facility] Comment on above: Performed By: #### C MP ####[facility] Eusfgwnofv8877 [place] [address]Dr. Amina Escobar CO2 [Moles/Vol] 25.7 mmol/L Normal 21.0-32.0 [facility] Comment on above: Performed By: #### C MP ####[facility] Zxhhsezyvu466[address] [place], [place] [address]Dr. Amina Escobar Creatinine [Mass/Vol] 1.02 mg/dL Normal 0.70-1.30 [facility] Comment on above: Performed By: #### C MP ####[facility] Bqwmgtooyi446[address] [place], [place] [address]Dr. Amina Escboar EGFR-AF LEBANESE >60 Normal >=60 [facility] Comment on above: Performed By: #### C MP ####[facility] Jwbkiginoi440[address] [place], [place] [address]Dr. Amina Escobar EGFR-NON AF LEBANESE >60 Normal >=60 [facility] Comment on above: Performed By: #### C MP ####[facility] Lvwksugwic797[address] [place], [place] [address]Dr. Amina Escobar Globulin (S) [Mass/Vol] 3.7 g/dL Normal [facility] Comment on above: Performed By: #### C MP ####[facility] Rlaiktdimg6839[address] [place], [place] [address]Dr. Amina Escobar Glucose [Mass/Vol] 97 mg/dL Normal 74-106 [facility] Comment on above: Performed By: #### C MP ####[facility] Lkjkzmrhdv3665[address] [place], [place] [address]Dr. Amina Escobar Potassium [Moles/Vol] 4.2 mmol/L Normal 3.5-5.1 [facility] Comment on above: Performed By: #### C MP ####[facility] Vhyyifbrbe107[address] [place], [place] [address]Dr. Amina Escobar Protein [Mass/Vol] 6.8 g/dL Normal 6.4-8.2 [facility] Comment on above: Performed By: #### C MP ####[facility] Qigojfadsf235[address] [place], [place] [address]Dr. Amina Escobar Sodium [Moles/Vol] 142 mmol/L Normal 136-145 [facility] Comment on above: Performed By: #### C MP ####[facility] Pgfbmxvbkp932[address] [place], [place] [address]Dr. Amina Escobra Urea nitrogen [Mass/Vol] 23.0 mg/dL Critically high 7.0-18.0 [facility] Comment on above: Performed By: #### C MP ####[facility] Tsylzulmgm3226[address] [place], [place] [address]Dr. Amina Escobar Urea nitrogen/Creatinine [Mass ratio] 22.5 mg/mg Normal [facility] Comment on above: Performed By: #### C MP ####[facility] Nkskqiurgf5715[address] [place], [place] [address]Dr. Amina Escobar PROTIMEon 05-09-2022 INR Coag (PPP) [Relative time] 1.16 {INR} Normal [facility] Comment on above: Performed By: #### P TT, PT ####[facility] Nufiyzztgn277[address] [place], [place] [address]Dr. Amina Escobar INR GUIDELINES SEE BELOW Normal [facility] Comment on above: Result Comment: LIMA RED INR: 2.0 - 3.0 CONDITIONS NOT LISTED BELOW 2.5 - 3.5 FOR PROSTHETIC HEART VALVE REPLACEMENT 2.5 - 3.5 RECURRENT THROMBOSIS Performed By: #### P TT, PT ####[facility] Jxbmekicvk825[address] [place], [place] [address]Dr. Amina Escobar PT Coag (PPP) [Time] 12.4 s Critically high 9.0-11.6 [facility] Comment on above: Performed By: #### P TT, PT ####[facility] Cclkhflxnv455[address] [place], [place] [address]Dr. Amina Escobar PTTon 05-09-2022 aPTT Coag (Bld) [Time] 27.7 s Normal 22.3-36.2 [facility] Comment on above: Performed By: #### P TT, PT ####[facility] Qnkgwtjimi0829[address] [place], [place] [address]Dr. Amina Escobar VIT B12 AND FOLATEon 022 Cobalamin (Vitamin B12) [Mass/Vol] 403.0 pg/mL Normal 193.0-986. 0 [facility] Comment on above: Performed By: #### B 12FOL ####[facility] Hsrcecyqgh23[address] [place] [address]Dr. Amina Escobar FOLATE 10.00 ng/mL Normal 8.60-58.90 [facility] Comment on above: Performed By: #### Radha 12FOL ####[facility] Oipqdqrxys68[address] [place] [address]Dr. Amina Escobar NM GI BLEEDon 05-08-2022 NM GI BLEED Normal [facility] CBC W MANUAL DIFFon 05-06-20 ANISOCYTOSIS 1+ Normal [facility] Comment on above: Performed By: #### Florence JOHNSON ####[facility] Vzccuxcgsd022[address] [place], [place] [address]Dr. Amina Escobar ATYPICAL LYMPH # Normal [facility] Comment on above: Performed By: #### Florence JOHNSON ####[facility] Omkuorexip[address] [place], [place] [address]Dr. Amina Escobar ATYPICAL LYMPH % Normal [facility] Comment on above: Performed By: #### Florence JOHNSON ####[facility] Avhlbketdv5813[address] [place], [place] [address]Dr. Amina Escobar BAND # Normal 0.0-0.3 [facility] Comment on above: Performed By: #### Florence JOHNSON ####[facility] Wwqkqbywdf0435[address] [place], [place] [address]Dr. Yilan Escobar BAND % Normal 0-5 [facility] Comment on above: Performed By: #### C ALEX ####[facility] Neunrhxnvh73[address] [place] [address]Dr. Amina Escobar BASOM # 0.00 103/ul Normal 0.00-0.10 [facility] Comment on above: Performed By: #### C ALEX ####[facility] Tbzjwrgmjr5301 [place] [address]Dr. Kandielda Escobar BASOM % 0.0 % Critically low 0.2-2.0 [facility] Comment on above: Performed By: #### C BCMAN ####[facility] Ziwwqncmor79[address] [place] [address]Dr. Amina Escobar BLAST # Normal [facility] Comment on above: Performed By: #### C BCMAN ####[facility] Wqfesmwlzg0072 [place] [address]Dr. Amina Escobar BLAST % Normal [facility] Comment on above: Performed By: #### C BCKELLY ####[facility] Qpsxsvyxvu3814 [place] [address]Dr. Amina Escobar CORRECTED WBC Normal 4.0-11.0 [facility] Comment on above: Performed By: #### C ALEX ####[facility] Jckobrfwvu989[address] [place], [place] [address]Dr. Amina Escobar EOS # 0.39 103/ul Normal 0.00-0.70 [facility] Comment on above: Performed By: #### C ALEX ####[facility] Zstlckliqw1627[address] [place], [place] [address]Dr. Amina Escobar EOS% 5.0 % Normal 0.9-7.0 [facility] Comment on above: Performed By: #### C ALEX ####[facility] Vymcpoxefs413[address] [place], [place] [address]Dr. Amina Escobar HCT 26.2 % Critically low 42.0-54.0 [facility] Comment on above: Performed By: #### C BCKELLY ####[facility] Fkqumirtau412[address] [place], [place] [address]Dr. Amina Escobar HGB 8.1 g/dl Critically low 14.0-18.0 [facility] Comment on above: Performed By: #### C BCKELLY ####[facility] Lwubdkrcyn7540[address] [place], [place] [address]Dr. Amina Escobar LYMPHM # 0.69 103/ul Critically low 1.20-3.80 [facility] Comment on above: Performed By: #### C BCKELLY ####[facility] Fkwlpwvvyd917[address] [place], [place] [address]Dr. Amina Escobar LYMPHM% 9.0 % Critically low 20.5-60.0 [facility] Comment on above: Performed By: #### C ALEX ####[facility] Kanfaweuyi15[address] [place] [address]Dr. Amina Escobar MCH 29.1 pg Normal 25.9-34.0 [facility] Comment on above: Performed By: #### C ALEX ####[facility] Mqmzyhtthd0043 [place] [address]Dr. Amina Escobar MCHC 30.9 g/dl Normal 29.9-35.2 [facility] Comment on above: Performed By: #### C ALEX ####[facility] Hnorpwqmhh3943 [place] [address]Dr. Amina Escobar MCV 94.2 fL Critically high 80.0-94.0 [facility] Comment on above: Performed By: #### C ALEX ####[facility] Uvneqqasue20[address] [place], [place] [address]Dr. Amina Escobar METAMYELOCYTE # Normal [facility] Comment on above: Performed By: #### C ALEX ####[facility] Gohmyzvaeo225[address] [place], [place] [address]Dr. Amina Escobar METAMYELOCYTE % Normal [facility] Comment on above: Performed By: #### C ALEX ####[facility] Kmywcfviof968[address] [place], [place] [address]Dr. Amina Escobar MONOM# 0.31 103/ul Normal 0.30-0.80 [facility] Comment on above: Performed By: #### C ALEX ####[facility] Opvklunzzx6[address] [place], [place] [id number]. Amina Escobar MONOM% 4.0 % Normal 1.7-12.0 [facility] Comment on above: Performed By: #### C ALEX ####[facility] Rlaxmoamyr864[address] [place], [place] [address]Dr. Amina Escobar MPV 9.7 fL Normal 9.5-13.5 [facility] Comment on above: Performed By: #### C ALEX ####[facility] Sjxohbczyj0440 [place], [place] [address]Aa. Amina Escobar MYELOCYTE # Normal [facility] Comment on above: Performed By: #### C ALEX ####[facility] Ejsqoacayg6545 [place] [address]Dr. Amina Escobar MYELOCYTE % Normal [facility] Comment on above: Performed By: #### C ALEX ####[facility] Efrvhshwfi1575 [place] [address]Dr. Amina Escobar NRBC Normal [facility] Comment on above: Performed By: #### C ALEX ####[facility] Kymhbxcuou0615 [place] [address]Dr. Amina Escobar PLT 236 103/ul Normal 150-450 [facility] Comment on above: Performed By: #### C ALEX ####[facility] Raadhxqrkz3397 [place] [address]Dr. Amina Escobar RBC 2.78 106/ul Critically low 4.70-6.10 [facility] Comment on above: Performed By: #### C ALEX ####[facility] Yidiiiqsrc0205 [place] [address]Dr. Amina Escobar RDW 19.4 % Critically high 11.0-15.0 [facility] Comment on above: Performed By: #### C ALEX ####[facility] Iuxkkrqlfy[address] [place], [place] [address]Dr. Amina Escobar SEG # 6.31 103/ul Normal 1.40-6.50 [facility] Comment on above: Performed By: #### C ALEX ####[facility] Jcynsaxvpp2194 [place] [address]Dr. Amina Escobar SEG % 82.0 % Critically high 43.0-75.0 [facility] Comment on above: Performed By: #### C ALEX ####[facility] Fgdkpylzmq3598 [place] [address]Dr. Amina Escobar WBC 7.7 103/ul Normal 4.0-11.0 [facility] Comment on above: Performed By: #### C ALEX ####[facility] Htgerfbrbc7704 [place] [address]Dr. Amina Escobar IRONon 05-06-2022 Iron [Mass/Vol] 27.0 ug/dL Critically low 65.0-175.0 [facility] Comment on above: Performed By: #### I PHIL ####[facility] Zcmknobjcx7044 [place] [address]Dr. Amina Shawn CBC AUTO DIFFon 04-29-2022 BASO # 0.0 103/ul Normal 0.0-0.1 [facility] Comment on above: Performed By: #### C BC ####[facility] Onkbwtpzcg4842 [place] [address]Dr. Amina Escobar Basophils/100 WBC (Bld) 0.5 % Normal 0.2-2.0 [facility] Comment on above: Performed By: #### C BC ####[facility] Covutdtywy4515[address] [place], [place] [address]Dr. Amina Escobar EO # 0.3 103/ul Normal 0.0-0.7 [facility] Comment on above: Performed By: #### C BC ####[facility] Pnlzqxvwhu77[address] [place], [place] [address]Dr. Amina Escobar Eosinophils/100 WBC (Bld) 3.6 % Normal 0.9-7.0 [facility] Comment on above: Performed By: #### C BC ####[facility] Jrscrvnpbv9975[address] [place], [place] [address]Dr. Amina Escobar Erythrocyte distribution width (RBC) [Ratio] 20.5 % Critically high 11.0-15.0 [facility] Comment on above: Performed By: #### C BC ####[facility] Scepanfzwr[address] [place], [place] [id number]. Amina Escobar Hematocrit (Bld) [Volume fraction] 30.0 % Critically low 42.0-54.0 [facility] Comment on above: Performed By: #### C BC ####[facility] Gzynemnlpv950[address] [place], [place] [address]Dr. Amina Escobar Hemoglobin (Bld) [Mass/Vol] 9.3 g/dL Critically low 14.0-18.0 [facility] Comment on above: Performed By: #### C BC ####[facility] Bckzwxijvx4050 [place] [address]Dr. Amina Escobar IG # 0.04 10e3/ul Critically high 0.00-0.03 [facility] Comment on above: Performed By: #### C BC ####[facility] Wtaeqttdqw9316 [place] [address]DrMemo Escobar IG % 0.5 % Normal 0.0-0.5 [facility] Comment on above: Performed By: #### C BC ####[facility] Xclgvmtjnh562[address] [place], [place] [address]DrMemo Escobar LYMPH # 0.6 103/ul Critically low 1.2-3.8 [facility] Comment on above: Performed By: #### C BC ####[facility] Vznqxfboai4727[address] [place], [place] [address]Dr. Amina Escobar Lymphocytes/100 WBC (Bld) 7.6 % Critically low 20.5-60.0 [facility] Comment on above: Performed By: #### C BC ####[facility] Nkqswgczcu167[address] [place], [place] [address]DrMemo Escobar MANUAL DIFF REQ NO Normal [facility] Comment on above: Performed By: #### C BC ####[facility] Peshscotoo[address] [place], [place] [address]Dr. Amina Escobar MCH (RBC) [Entitic mass] 29.0 pg Normal 25.9-34.0 [facility] Comment on above: Performed By: #### C BC ####[facility] Uboqqitzzc4064[address] [place], [place] [address]Dr. Amina Escobar MCHC (RBC) [Mass/Vol] 31.0 g/dL Normal 29.9-35.2 [facility] Comment on above: Performed By: #### C BC ####[facility] Oxacvtxlfi8141 [place] [address]DrMemo Escobar MCV (RBC) [Entitic vol] 93.5 fL Normal 80.0-94.0 [facility] Comment on above: Performed By: #### C BC ####[facility] Tztpsmjpcx3046 [place] [address]Dr. Amina Escobar MONO # 0.7 103/ul Normal 0.3-0.8 [facility] Comment on above: Performed By: #### C BC ####[facility] Klfeuoftdc7384 [place] [address]Dr. Amina Escobar Monocytes/100 WBC (Bld) 7.9 % Normal 1.7-12.0 [facility] Comment on above: Performed By: #### C BC ####[facility] Spigvxerpn8845 [place] [address]Dr. Amina Escobar NEUT # 6.8 103/ul Critically high 1.4-6.5 [facility] Comment on above: Performed By: #### C BC ####[facility] Ijrpvijebz4412 [place] [address]Dr. Amina Escobar Neutrophils/100 WBC (Bld) 79.9 % Critically high 43.0-75.0 [facility] Comment on above: Performed By: #### C BC ####[facility] Kmcesonnxe2503 [place] [address]Dr. Amina Escobar Platelet mean volume (Bld) [Entitic vol] 10.4 fL Normal 9.5-13.5 [facility] Comment on above: Performed By: #### C BC ####[facility] Rodegyhwgm0784 [place] [address]Dr. Amina Escobar PLT 202 103/ul Normal 150-450 [facility] Comment on above: Performed By: #### C BC ####[facility] Nmcrygnsbf3257 [place] [address]Dr. Amina Escobar RBC 3.21 106/ul Critically low 4.70-6.10 [facility] Comment on above: Performed By: #### C BC ####[facility] [address]zuonu[address] [place] [id number]. Amina Escobar WBC 8.5 103/ul Normal 4.0-11.0 [facility] Comment on above: Performed By: #### C BC ####[facility] Yyxqoburbh[address] [place] [address]Dr. Amina Escobar PROF CHEM 8 (BAS METB)on Anion gap [Moles/Vol] 9.1 mmol/L Normal [facility] Comment on above: Performed By: #### B MP ####[facility] Ulxvssqaqp[address] [place] [address]Dr. Amina Escobar Calcium [Mass/Vol] 8.0 mg/dL Critically low 8.5-10.1 Th [facility] Comment on above: Performed By: #### B MP ####[facility] Ksvddmrkgr[address] [place] [address]Dr. Amina Escobar Chloride [Moles/Vol] 113 mmol/L Critically high 98-107 [facility] Comment on above: Performed By: #### B MP ####[facility] Hcsaxemaog7[address] [place] [address]Dr. Amina Escobar CO2 [Moles/Vol] 26.1 mmol/L Normal 21.0-32.0 [facility] Comment on above: Performed By: #### B MP ####[facility] Kvpxsoynte[address] [place], [place] [address]Dr. Amina Escobar Creatinine [Mass/Vol] 1.33 mg/dL Critically high 0.70-1.30 [facility] Comment on above: Performed By: #### B MP ####[facility] Updxucixfy12[address] [place] [address]Dr. Amina Escobar EGFR-AF LEBANESE >60 Normal >=60 [facility] Comment on above: Performed By: #### B MP ####[facility] Aergfnagot50[address] [place] [address]Dr. Amina Escobar EGFR-NON AF LEBANESE 51 mL/min/1.73m2 Critically low >=60 [facility] Comment on above: Performed By: #### B MP ####[facility] Znbymsvhcq14[address] [place], [place] [address]Dr. Amina Escobar Glucose [Mass/Vol] 90 mg/dL Normal 74-106 [facility] Comment on above: Performed By: #### B MP ####[facility] Ndwangjcdi0142 [place] [address]Dr. Amina Escobar Potassium [Moles/Vol] 4.2 mmol/L Normal 3.5-5.1 [facility] Comment on above: Performed By: #### B MP ####[facility] Lpfegtysay2[address] [place] [address]Dr. Amina Escobar Sodium [Moles/Vol] 144 mmol/L Normal 136-145 [facility] Comment on above: Performed By: #### B MP ####[facility] Vhqkivkodx3[address] [place] [address]Dr. Amina Escobar Urea nitrogen [Mass/Vol] 37.0 mg/dL Critically high 7.0-18.0 [facility] Comment on above: Performed By: #### B MP ####[facility] Ijrjswwnhv[address] [place], [place] [address]Dr. Amina Escobar Urea nitrogen/Creatinine [Mass ratio] 27.8 mg/mg Normal [facility] Comment on above: Performed By: #### B MP ####[facility] Fngpedtfoc[address] [place], [place] [address]Dr. Amina Escobar PRBC LEUKOREDUCEDon 04-28-20 PRBC LEUKOREDUCED Normal [facility] Comment on above: Performed By: #### P RBC ####[facility] Odpabcezuz038[address] [place], [place] [address]DrMemo Escobar PRBC LEUKOREDUCED Cross Match Result Compatible Unit Blood Type O Neg Unit Number [id number] Status Information Transfused Product ID Red Blood Cells Product Code [id number] Normal [facility] Comment on above: Performed By: #### P RBC ####[facility] Vwabteimuk7[address] [place], [place] [address]DrMemo Escobar CBC AUTO DIFFon 04-27-2022 BASO # 0.0 103/ul Normal 0.0-0.1 [facility] Comment on above: Performed By: #### C BC ####[facility] Olkkmmssiy294[address] [place], [place] [address]DrMemo Escobar Basophils/100 WBC (Bld) 0.4 % Normal 0.2-2.0 [facility] Comment on above: Performed By: #### C BC ####[facility] Acpznhqqqh30[address] [place] [address]Dr. Amina Escobar EO # 0.3 103/ul Normal 0.0-0.7 [facility] Comment on above: Performed By: #### C BC ####[facility] Hlffscoaqc5225[address] [place], [place] [address]Dr. Amina Escobar Eosinophils/100 WBC (Bld) 3.1 % Normal 0.9-7.0 [facility] Comment on above: Performed By: #### C BC ####[facility] Ibgmjdhjus404[address] [place], [place] [address]Dr. Amina Escobar Erythrocyte distribution width (RBC) [Ratio] 20.3 % Critically high 11.0-15.0 [facility] Comment on above: Performed By: #### C BC ####[facility] Jflshafxei744[address] [place], [place] [address]Dr. Amina Escobar Hematocrit (Bld) [Volume fraction] 26.5 % Critically low 42.0-54.0 [facility] Comment on above: Performed By: #### C BC ####[facility] Derbmftcxe3075[address] [place], [place] [address]Dr. Amina Escobar Hemoglobin (Bld) [Mass/Vol] 8.4 g/dL Critically low 14.0-18.0 [facility] Comment on above: Performed By: #### C BC ####[facility] Iadruwpwfk826[address] [place], [place] [address]Dr. Amina Escobar IG # 0.05 10e3/ul Critically high 0.00-0.03 [facility] Comment on above: Performed By: #### C BC ####[facility] Qcgvfohiwr5612[address] [place], [place] [address]Dr. Amina Escobar IG % 0.6 % Critically high 0.0-0.5 [facility] Comment on above: Performed By: #### C BC ####[facility] Qrmnkuljtj8655 [place] [address]Dr. Amina Shawn LYMPH # 0.8 103/ul Critically low 1.2-3.8 [facility] Comment on above: Performed By: #### C BC ####[facility] Nljgxwhgdo6586 [place] [address]Dr. Amina Shawn Lymphocytes/100 WBC (Bld) 9.6 % Critically low 20.5-60.0 [facility] Comment on above: Performed By: #### C BC ####[facility] Fymlzhpusv8501 [place] [address]Dr. Kandielda Escobar MANUAL DIFF REQ NO Normal [facility] Comment on above: Performed By: #### C BC ####[facility] Xjkdnkqydu6319 [place] [address]Dr. Amina Shawn MCH (RBC) [Entitic mass] 28.8 pg Normal 25.9-34.0 [facility] Comment on above: Performed By: #### C BC ####[facility] Fqcncajfgx45[address] [place], [place] [address]Dr. Amina Shawn MCHC (RBC) [Mass/Vol] 31.7 g/dL Normal 29.9-35.2 [facility] Comment on above: Performed By: #### C BC ####[facility] Pmqogdjgro0832 [place] [address]Dr. Kandielda Escobar MCV (RBC) [Entitic vol] 90.8 fL Normal 80.0-94.0 [facility] Comment on above: Performed By: #### C BC ####[facility] Azfzjvextx4946 [place] [address]Dr. Amina Escobar MONO # 0.8 103/ul Normal 0.3-0.8 [facility] Comment on above: Performed By: #### C BC ####[facility] Fcbxdeojpf250[address] [place], [place] [address]Dr. Kandielda Escobar Monocytes/100 WBC (Bld) 9.4 % Normal 1.7-12.0 [facility] Comment on above: Performed By: #### C BC ####[facility] Bjbjtaeyhj7144 [place] [address]Dr. Amina Escobar NEUT # 6.4 103/ul Normal 1.4-6.5 [facility] Comment on above: Performed By: #### C BC ####[facility] Firxhixlbk89[address] [place] [address]Dr. Amina Escobar Neutrophils/100 WBC (Bld) 76.9 % Critically high 43.0-75.0 [facility] Comment on above: Performed By: #### C BC ####[facility] Fxmlcyhfef9031 [place] [address]Dr. Amina Escobar Platelet mean volume (Bld) [Entitic vol] 10.5 fL Normal 9.5-13.5 [facility] Comment on above: Performed By: #### C BC ####[facility] Zvtvbmfeol5675 [place] [address]Dr. Amina Escobar PLT 160 103/ul Normal 150-450 [facility] Comment on above: Performed By: #### C BC ####[facility] Zfbiozmdcl4963 [place] [address]Dr. Amina Escobar RBC 2.92 106/ul Critically low 4.70-6.10 [facility] Comment on above: Performed By: #### C BC ####[facility] Swelzatyau7[address] [place] [address]Dr. Amina Escobar WBC 8.3 103/ul Normal 4.0-11.0 [facility] Comment on above: Performed By: #### C BC ####[facility] Neqxjcoatz01[address] [place] [address]Dr. Amina Escobar GLYCOHEMOGLOBIN A1Con 2021 ADA RECOMMENDATION SEE BELOW Normal [facility] Comment on above: Result Comment: ADA RECOMMENDED LIMIT 4.0 - 6.0 ADA THERAPEUTIC TARGET < 7.0 ACTION SUGGESTED > 7.0 Performed By: #### A 1C ####[facility] Gmfjzvktst9[address] [place] [address]Dr. Amina Escobar Glucose [Mass/Vol] 111 mg/dL Normal [facility] Comment on above: Performed By: #### A 1C ####[facility] Hhbbgxmccr1672 [place] [address]Dr. Amina Escobar HbA1c (Bld) [Mass fraction] 5.5 % Normal 4.5-6.2 [facility] Comment on above: Performed By: #### A 1C ####[facility] Zuvgdhbsle440[address] [place], [place] [address]Dr. Amina Escobar POINT OF CARE GLUCOSEon 04-11 Glucose [Mass/Vol] 195 mg/dL Critically high 74-106 [facility] Comment on above: Performed By: #### P OCGLUC ####[facility] Xwpvtftlus5836 [place] [address]Dr. Amina Escobar PROF CHEM 8 (BAS METB)on Anion gap [Moles/Vol] 10.0 mmol/L Normal [facility] Comment on above: Performed By: #### B MP ####[facility] Jstyxzwgcf862[address] [place], [place] [address]Dr. Amina Escobar Calcium [Mass/Vol] 7.9 mg/dL Critically low 8.5-10.1 [facility] Comment on above: Performed By: #### B MP ####[facility] Vfycvokcgc3216[address] [place], [place] [address]Dr. Amina Escobar Chloride [Moles/Vol] 116 mmol/L Critically high 98-107 [facility] Comment on above: Performed By: #### B MP ####[facility] Fnaawaxcuw3925[address] [place], [place] [address]Dr. Amina Escobar CO2 [Moles/Vol] 23.1 mmol/L Normal 21.0-32.0 [facility] Comment on above: Performed By: #### B MP ####[facility] Ubuapwdwdw537[address] [place], [place] [address]Dr. Amina Escobar Creatinine [Mass/Vol] 1.18 mg/dL Normal 0.70-1.30 [facility] Comment on above: Performed By: #### B MP ####[facility] Fjnfnzvhri56[address] [place], [place] [address]Dr. Amina Escobar EGFR-AF LEBANESE >60 Normal >=60 [facility] Comment on above: Performed By: #### B MP ####[facility] Jebuyouvyq1287 [place] [address]Dr. Amina Shawn EGFR-NON AF LEBANESE 59 mL/min/1.73m2 Critically low >=60 [facility] Comment on above: Performed By: #### B MP ####[facility] Tflokpuroy1976 [place] [address]Dr. Amina Escobar Glucose [Mass/Vol] 100 mg/dL Normal 74-106 [facility] Comment on above: Performed By: #### B MP ####[facility] Kpdnvwwidl7449 [place] [address]Dr. Amina Escobar Potassium [Moles/Vol] 4.1 mmol/L Normal 3.5-5.1 [facility] Comment on above: Performed By: #### B MP ####[facility] Ivvczgjadv2000 [place] [address]Dr. Amina Escobar Sodium [Moles/Vol] 145 mmol/L Normal 136-145 [facility] Comment on above: Performed By: #### B MP ####[facility] Eqfhyvybkm2836 [place] [address]Dr. Amina Escobar Urea nitrogen [Mass/Vol] 40.0 mg/dL Critically high 7.0-18.0 [facility] Comment on above: Performed By: #### B MP ####[facility] Upamxmegcr2973 [place] [address]Dr. Amina Escobar Urea nitrogen/Creatinine [Mass ratio] 33.9 mg/mg Normal [facility] Comment on above: Performed By: #### B MP ####[facility] Dtwkiaqzsc4566 [place] [address]Dr. Amina Escobar CBC AUTO DIFFon 04-26-2022 BASO # 0.1 103/ul Normal 0.0-0.1 [facility] Comment on above: Performed By: #### C BC ####[facility] Wwngkfcowk7594 [place] [address]Dr. Amina Escobar Basophils/100 WBC (Bld) 0.6 % Normal 0.2-2.0 [facility] Comment on above: Performed By: #### C BC ####[facility] Jniiksqumj0648 [place] [address]DrMemo Amina Escobar EO # 0.2 103/ul Normal 0.0-0.7 [facility] Comment on above: Performed By: #### C BC ####[facility] Klgdjczdgx2040 [place] [address]DrMemo Kandielda Escobar Eosinophils/100 WBC (Bld) 2.1 % Normal 0.9-7.0 [facility] Comment on above: Performed By: #### C BC ####[facility] Vmxtnngbks3620[address] [place], [place] [address]Dr. Amina Escobar Erythrocyte distribution width (RBC) [Ratio] 18.6 % Critically high 11.0-15.0 [facility] Comment on above: Performed By: #### C BC ####[facility] Ogsttuccuc5880[address] [place], [place] [address]DrMemo Escobar Hematocrit (Bld) [Volume fraction] 23.6 % Critically low 42.0-54.0 [facility] Comment on above: Performed By: #### C BC ####[facility] Jnuarosndd330[address] [place], [place] [address]DrMemo Kandielda Escobar Hemoglobin (Bld) [Mass/Vol] 7.6 g/dL Critically low 14.0-18.0 [facility] Comment on above: Performed By: #### C BC ####[facility] Aidzhjoxnp267[address] [place], [place] [address]DrMemo Escobar IG # 0.04 10e3/ul Critically high 0.00-0.03 [facility] Comment on above: Performed By: #### C BC ####[facility] Amhsigekgh824[address] [place], [place] [address]DrMemo Escobar IG % 0.5 % Normal 0.0-0.5 [facility] Comment on above: Performed By: #### C BC ####[facility] Rahumrfjzo085[address] [place], [place] [address]DrMemo Escobar LYMPH # 0.8 103/ul Critically low 1.2-3.8 [facility] Comment on above: Performed By: #### C BC ####[facility] Gzwjokxaac4561 [place] [address]Dr. Amina Escobar Lymphocytes/100 WBC (Bld) 9.2 % Critically low 20.5-60.0 [facility] Comment on above: Performed By: #### C BC ####[facility] Qqhsodevaw7145 [place] [address]DrMemo Escobar MANUAL DIFF REQ NO Normal [facility] Comment on above: Performed By: #### C BC ####[facility] Otmnaqkann3624 [place] [address]Dr. Amina Escobar MCH (RBC) [Entitic mass] 29.1 pg Normal 25.9-34.0 [facility] Comment on above: Performed By: #### C BC ####[facility] Bhecedolml863[address] [place], [place] [address]Dr. Amina Escobar MCHC (RBC) [Mass/Vol] 32.2 g/dL Normal 29.9-35.2 [facility] Comment on above: Performed By: #### C BC ####[facility] Bprawehfjk401[address] [place], [place] [address]DrMemo Escobar MCV (RBC) [Entitic vol] 90.4 fL Normal 80.0-94.0 [facility] Comment on above: Performed By: #### C BC ####[facility] Mkvsuihfpg398[address] [place], [place] [address]Dr. Amina Escobar MONO # 0.8 103/ul Normal 0.3-0.8 [facility] Comment on above: Performed By: #### C BC ####[facility] Nhexjdtooa0465[address] [place], [place] [address]Dr. Amina Escobar Monocytes/100 WBC (Bld) 9.0 % Normal 1.7-12.0 [facility] Comment on above: Performed By: #### C BC ####[facility] Rxvfkldhhe330[address] [place], [place] [address]DrMemo Escobar NEUT # 6.7 103/ul Critically high 1.4-6.5 [facility] Comment on above: Performed By: #### C BC ####[facility] Buywkdxrvl9705 [place] [address]Dr. Amina Shawn Neutrophils/100 WBC (Bld) 78.6 % Critically high 43.0-75.0 [facility] Comment on above: Performed By: #### C BC ####[facility] Blfqcxsumc3253 [place] [address]Dr. Kandielda Shawn Platelet mean volume (Bld) [Entitic vol] 10.4 fL Normal 9.5-13.5 [facility] Comment on above: Performed By: #### C BC ####[facility] Lqkhxwiolf6064[address] [place], [place] [address]Dr. Amina Escobar PLT 167 103/ul Normal 150-450 [facility] Comment on above: Performed By: #### C BC ####[facility] Ohjqqvktws828[address] [place], [place] [address]Dr. Amina Escobar RBC 2.61 106/ul Critically low 4.70-6.10 [facility] Comment on above: Performed By: #### C BC ####[facility] Bsqpfclloc880[address] [place], [place] [address]Dr. Amina Escobar WBC 8.5 103/ul Normal 4.0-11.0 [facility] Comment on above: Performed By: #### C BC ####[facility] Mxpexmxedp434[address] [place], [place] [address]Dr. Amina Escobar HEMOGLOBIN AND HEMATOCRITon 04-26-2022 Hematocrit (Bld) [Volume fraction] 28.9 % Critically low 42.0-54.0 [facility] Comment on above: Performed By: #### H GBHCT ####[facility] Ugwpxoppvi4212[address] [place], [place] [address]Dr. Amina Escobar Hemoglobin (Bld) [Mass/Vol] 9.1 g/dL Critically low 14.0-18.0 [facility] Comment on above: Performed By: #### H GBHCT ####[facility] Vxojqlvmhm094[address] [place], [place] [address]Dr. Amina Escobar POINT OF CARE GLUCOSEon 04-11 Glucose [Mass/Vol] 156 mg/dL Critically high 74-106 [facility] Comment on above: Performed By: #### P OCGLUC ####[facility] Pcjyfehghz2934[address] [place], [place] [address]Dr. Amina Escobar Glucose [Mass/Vol] 182 mg/dL Critically high 74-106 [facility] Comment on above: Performed By: #### P OCGLUC ####[facility] Nwluedzwyb699[address] [place], [place] [address]Dr. Amina Escobar Glucose [Mass/Vol] 185 mg/dL Critically high 74-106 [facility] Comment on above: Performed By: #### P OCGLUC ####[facility] Jtztfixngw915[address] [place], [place] [address]Dr. Amina Escobar PROF CHEM 8 (BAS METB)on Anion gap [Moles/Vol] 9.4 mmol/L Normal [facility] Comment on above: Performed By: #### B MP ####[facility] Iynxktttxi6438[address] [place], [place] [address]Dr. Amina Escobar Calcium [Mass/Vol] 7.8 mg/dL Critically low 8.5-10.1 [facility] Comment on above: Performed By: #### B MP ####[facility] Jwmoewtkdb312[address] [place], [place] [address]Dr. Amina Escobar Chloride [Moles/Vol] 113 mmol/L Critically high 98-107 [facility] Comment on above: Performed By: #### B MP ####[facility] Xicojhnsov400[address] [place], [place] [address]Dr. Amina Escobar CO2 [Moles/Vol] 24.8 mmol/L Normal 21.0-32.0 [facility] Comment on above: Performed By: #### B MP ####[facility] Jzdcijspim462[address] [place], [place] [address]Dr. Amina Escobar Creatinine [Mass/Vol] 1.21 mg/dL Normal 0.70-1.30 [facility] Comment on above: Performed By: #### B MP ####[facility] Rafshsjtaa1513 [place] [address]Dr. Amina Escobar EGFR-AF LEBANESE >60 Normal >=60 [facility] Comment on above: Performed By: #### B MP ####[facility] Ewhrjjxksl9691 [place] [address]Dr. Amina Escobar EGFR-NON AF LEBANESE 57 mL/min/1.73m2 Critically low >=60 [facility] Comment on above: Performed By: #### B MP ####[facility] Twgqmybmcj798[address] [place], [place] [address]Dr. Amina Escobar Glucose [Mass/Vol] 95 mg/dL Normal 74-106 [facility] Comment on above: Performed By: #### B MP ####[facility] Lnnnkxhwjk8701[address] [place], [place] [address]Dr. Amina Escobar Potassium [Moles/Vol] 4.2 mmol/L Normal 3.5-5.1 [facility] Comment on above: Performed By: #### B MP ####[facility] Vqadwxpizu205[address] [place], [place] [address]Dr. Amina Escobar Sodium [Moles/Vol] 143 mmol/L Normal 136-145 [facility] Comment on above: Performed By: #### B MP ####[facility] Iphbhngaqh2688[address] [place], [place] [address]Dr. Amina Escobra Urea nitrogen [Mass/Vol] 44.0 mg/dL Critically high 7.0-18.0 [facility] Comment on above: Performed By: #### B MP ####[facility] Nvqobrvzly2410[address] [place], [place] [address]Dr. Amina Escobar Urea nitrogen/Creatinine [Mass ratio] 36.4 mg/mg Normal [facility] Comment on above: Performed By: #### B MP ####[facility] Fzgpblqhnz2064[address] [place], [place] [address]Dr. Amina Escobar CBC AUTO DIFFon 04-25-2022 Basophils/100 WBC (Bld) 0.5 % Normal 0.2-2.0 [facility] Comment on above: Performed By: #### C BC ####[facility] Smycipmgkf3530 [place] [address]Dr. Amina Escobar EO # 0.1 103/ul Normal 0.0-0.7 [facility] Comment on above: Performed By: #### C BC ####[facility] Mwpatpwwou6695 [place] [address]Dr. Amina Escobar Eosinophils/100 WBC (Bld) 1.1 % Normal 0.9-7.0 [facility] Comment on above: Performed By: #### C BC ####[facility] Pkerhghnbu119[address] [place], [place] [address]Dr. Amina Escobar Erythrocyte distribution width (RBC) [Ratio] 18.4 % Critically high 11.0-15.0 [facility] Comment on above: Performed By: #### C BC ####[facility] Awelkjcuxu710[address] [place], [place] [address]Dr. Amina Escobar Hematocrit (Bld) [Volume fraction] 23.6 % Critically low 42.0-54.0 [facility] Comment on above: Performed By: #### C BC ####[facility] Qafxwqeoxw6480[address] [place], [place] [address]Dr. Amina Escobar Hemoglobin (Bld) [Mass/Vol] 7.6 g/dL Critically low 14.0-18.0 [facility] Comment on above: Performed By: #### C BC ####[facility] Sdvfojbynh424[address] [place], [place] [address]Dr. Amina Escobar IG # 0.03 10e3/ul Normal 0.00-0.03 [facility] Comment on above: Performed By: #### C BC ####[facility] Daktbykgmw[address] [place], [place] [address]Dr. Amina Escobar IG % 0.4 % Normal 0.0-0.5 [facility] Comment on above: Performed By: #### C BC ####[facility] Sielpgaela528[address] [place], [place] [address]Dr. Amina Escobar LYMPH # 0.8 103/ul Critically low 1.2-3.8 [facility] Comment on above: Performed By: #### C BC ####[facility] Qffumjmbfc4559 [place] [address]Dr. Amina Escobar Lymphocytes/100 WBC (Bld) 9.8 % Critically low 20.5-60.0 [facility] Comment on above: Performed By: #### C BC ####[facility] Ownviuwjsk8513 [place] [address]Dr. Amina Escobar MCH (RBC) [Entitic mass] 28.7 pg Normal 25.9-34.0 [facility] Comment on above: Performed By: #### C BC ####[facility] Skhmdkolql2732 [place] [address]Dr. Amnia Escobar MCHC (RBC) [Mass/Vol] 32.2 g/dL Normal 29.9-35.2 [facility] Comment on above: Performed By: #### C BC ####[facility] Qjcypfmdxc43[address] [place], [place] [address]Dr. Amina Escobar MCV (RBC) [Entitic vol] 89.1 fL Normal 80.0-94.0 [facility] Comment on above: Performed By: #### C BC ####[facility] Zzoknxafhd7[address] [place], [place] [address]Dr. Amina Escobar MONO # 0.7 103/ul Normal 0.3-0.8 [facility] [facility] Comment on above: Performed By: #### C BC ####[facility] [address]kw[address] [place] [address]Dr. Amina Shawn Monocytes/100 WBC (Bld) 8.1 % Normal 1.7-12.0 [facility] Comment on above: Performed By: #### C BC ####[facility] [address] [place], [place] [id number]. Amina Escobar NEUT # 6.7 103/ul Critically high 1.4-6.5 [facility] Comment on above: Performed By: #### C BC ####[facility] Xwvgroxcnp[address] [place], [place] [id number]. Amina Shawn Neutrophils/100 WBC (Bld) 80.1 % Critically high 43.0-75.0 [facility] Comment on above: Performed By: #### C BC ####[facility] Dhxrptggsi[address] [place] [address]Dr. Amina Escobar Platelet mean volume (Bld) [Entitic vol] 10.6 fL Normal 9.5-13.5 [facility] Comment on above: Performed By: #### C BC ####[facility] Fxmtapzmxb24[address] [place] [address]Dr. Amina Shawn PLT 183 103/ul Normal 150-450 [facility] Comment on above: Performed By: #### C BC ####[facility] Hrwgfiiror199[address] [place], [place] [address]Dr. Amina Shawn RBC 2.65 106/ul Critically low 4.70-6.10 [facility] Comment on above: Performed By: #### C BC ####[facility] Dflixwvlej106[address] [place], [place] [address]Dr. Amina Shawn WBC 8.4 103/ul Normal 4.0-11.0 [facility] Comment on above: Performed By: #### C BC ####[facility] Fdtpatplrj106[address] [place], [place] [address]Dr. Amina Shawn CBC W MANUAL DIFFon 04-25-20 22 ATYPICAL LYMPH # Normal [facility] Comment on above: Performed By: #### C BCMAN ####[facility] Iyshoyarub[address] [place], [place] [address]Dr. Amina Escobar ATYPICAL LYMPH % Normal [facility] Comment on above: Performed By: #### C BCMAN ####[facility] Mttkeuuyab39[address] [place], [place] [address]Dr. Amina Escobar BAND # 0.2 103/ul Normal 0.0-0.3 [facility] Comment on above: Performed By: #### C BCMAN ####[facility] Fzqmxpignn94[address] [place], [place] [address]Dr. Amina Escobar BAND % 2 % Normal 0-5 [facility] Comment on above: Performed By: #### C BCMAN ####[facility] Anvxuypzbo677[address] [place], [place] [address]Dr. Amina Escobar BASOM # 0.00 103/ul Normal 0.00-0.10 [facility] Comment on above: Performed By: #### C BCMAN ####[facility] Pfwirvskyh[address] [place] [address]Dr. Amina Escobar BASOM % 0.0 % Critically low 0.2-2.0 [facility] Comment on above: Performed By: #### C BCMAN ####[facility] Yqmraryifg39[address] [place] [address]Dr. Amina Escobar BLAST # Normal [facility] Comment on above: Performed By: #### C BCKELLY ####[facility] Rppwtejedm[address] [place] [address]Dr. Amina Escobar BLAST % Normal [facility] Comment on above: Performed By: #### C BCKELLY ####[facility] Afinowheio3599[address] [place], [place] [address]Dr. Amina Escobar CORRECTED WBC Normal 4.0-11.0 [facility] Comment on above: Performed By: #### C BCKELLY ####[facility] Yanptmddkh606[address] [place], [place] [address]Dr. Amina Escobar EOS # 0.23 103/ul Normal 0.00-0.70 [facility] Comment on above: Performed By: #### C BCKELLY ####[facility] Wghsmctbhg579[address] [place], [place] [address]Dr. Amina Escobar EOS% 3.0 % Normal 0.9-7.0 [facility] Comment on above: Performed By: #### C BCKELLY ####[facility] Andxahzyox044[address] [place], [place] [address]Dr. Amina Escobar HCT 22.4 % Critically low 42.0-54.0 [facility] Comment on above: Performed By: #### C BCKELLY ####[facility] Olncaqpdyz75[address] [place], [place] [address]Dr. Amina Escobar HGB 7.2 g/dl Critically low 14.0-18.0 [facility] Comment on above: Performed By: #### C BCKELLY ####[facility] Qbkpnnxwzb4902 [place], [place] [address]Se. Amina Escobar LYMPHM # 0.70 103/ul Critically low 1.20-3.80 [facility] Comment on above: Performed By: #### C ALEX ####[facility] Czxelxnubr2558 [place], [place] [address]Zb. Amina Escobar LYMPHM% 9.0 % Critically low 20.5-60.0 [facility] Comment on above: Performed By: #### C ALEX ####[facility] Msfjefludw5453 [place], [place] [address]Ah. Amina Escobar MCH 28.9 pg Normal 25.9-34.0 [facility] Comment on above: Performed By: #### C ALEX ####[facility] Uddflbajzg8898 [place], [place] [address]Pq. Amina Escobar MCHC 32.1 g/dl Normal 29.9-35.2 [facility] Comment on above: Performed By: #### C ALEX ####[facility] Qu[address]feocbe[address] [place] [address]Dr. Amina Escobar MCV 90.0 fL Normal 80.0-94.0 [facility] Comment on above: Performed By: #### C ALEX ####[facility] Fuffqyupmo4716 [place], [place] [address]Mr. Amina Escobar METAMYELOCYTE # Normal [facility] Comment on above: Performed By: #### C ALEX ####[facility] Fklvmosbej1459 [place], [place] [address]Os. Amina Escobar METAMYELOCYTE % Normal [facility] Comment on above: Performed By: #### C ALEX ####[facility] Gxzgdvwhte69[address] [place] [address]Dr. Amina Escobar MONOM# 0.39 103/ul Normal 0.30-0.80 [facility] Comment on above: Performed By: #### C ALEX ####[facility] Uycogabpxq3279 [place], [place] [address]Wp. Amian Escobar MONOM% 5.0 % Normal 1.7-12.0 [facility] Comment on above: Performed By: #### C ALEX ####[facility] Yuajgjacub50[address] [place] [address]Dr. Amina Escobar MPV 10.9 fL Normal 9.5-13.5 [facility] Comment on above: Performed By: #### C ALEX ####[facility] Xzouabxzmu53[address] [place] [address]Dr. Amina Escobar MYELOCYTE # 0.2 103/ul Normal [facility] Comment on above: Performed By: #### C ALEX ####[facility] Fbslxlvztd27[address] [place] [address]Dr. Amina Escobar MYELOCYTE % 2 % Normal [facility] Comment on above: Performed By: #### C ALEX ####[facility] Fmmbgweoru17[address] [place] [address]Dr. Amina Escobar NRBC Normal [facility] Comment on above: Performed By: #### C ALEX ####[facility] Jxybajixoi524[address] [place], [place] [address]Dr. Amina Escobar OVALOCYTES 1+ Normal [facility] Comment on above: Performed By: #### C ALEX ####[facility] Ecasgiwrjg5[address] [place] [address]Dr. Amina Escobar PLT 163 103/ul Normal 150-450 [facility] Comment on above: Performed By: #### C ALEX ####[facility] Vxilwgxkmo1853 [place] [address]Dr. Amina Escobar RBC 2.49 106/ul Critically low 4.70-6.10 [facility] Comment on above: Performed By: #### C ALEX ####[facility] Raccuhsxle58[address] [place] [address]Dr. Amina Escobar RDW 18.4 % Critically high 11.0-15.0 [facility] Comment on above: Performed By: #### C ALEX ####[facility] Jdwuxexato7072 [place] [address]Dr. Amina Escobar SEG # 6.16 103/ul Normal 1.40-6.50 [facility] Comment on above: Performed By: #### C BCMAN ####[facility] Dfrnmzjbdf32[address] [place] [address]Dr. Amina Escobar SEG % 79.0 % Critically high 43.0-75.0 [facility] Comment on above: Performed By: #### C BCMAN ####[facility] Zlpcflqhra99[address] [place] [address]Dr. Amina Escobar WBC 7.8 103/ul Normal 4.0-11.0 [facility] Comment on above: Performed By: #### C BCMAN ####[facility] Mowbwjkaeo75[address] [place] [address]Dr. Amina Escobar HEMOGLOBIN AND HEMATOCRITon 04-25-2022 Hematocrit (Bld) [Volume fraction] 27.1 % Critically low 42.0-54.0 [facility] Comment on above: Performed By: #### H GBHCT ####[facility] Xkrivplqgh529[address] [place], [place] [address]Dr. Amina Escobar Hemoglobin (Bld) [Mass/Vol] 8.7 g/dL Critically low 14.0-18.0 [facility] Comment on above: Performed By: #### H GBHCT ####[facility] Xjpnsnsomi606[address] [place], [place] [address]Dr. Amina Escobar POINT OF CARE GLUCOSEon 04-11 Glucose [Mass/Vol] 124 mg/dL Critically high 74-106 [facility] Comment on above: Performed By: #### P OCGLUC ####[facility] Mcbfxvnnlp69[address] [place], [place] [address]Dr. Amina Escobar Glucose [Mass/Vol] 102 mg/dL Normal 74-106 [facility] Comment on above: Performed By: #### P OCGLUC ####[facility] Fklolaiggk[address] [place], [place] [address]Dr. Amina Escobar Glucose [Mass/Vol] 108 mg/dL Critically high 74-106 [facility] Comment on above: Performed By: #### P OCGLUC ####[facility] Bvhbzysxbf369[address] [place], [place] [address]Dr. Amina Escobar Glucose [Mass/Vol] 120 mg/dL Critically high 74-106 [facility] Comment on above: Performed By: #### P OCGLUC ####[facility] Aqdpznozcd[address] [place] [address]Dr. Amina Escobar PROF CHEM 8 (BAS METB)on Anion gap [Moles/Vol] 13.2 mmol/L Normal [facility] Comment on above: Performed By: #### B MP ####[facility] Vrrabwuoes[address] [place] [address]Dr. Amina Shawn Calcium [Mass/Vol] 8.1 mg/dL Critically low 8.5-10.1 [facility] Comment on above: Performed By: #### B MP ####[facility] Ooelxqudkw614[address] [place], [place] [address]Dr. Amina Shawn Chloride [Moles/Vol] 111 mmol/L Critically high 98-107 [facility] Comment on above: Performed By: #### B MP ####[facility] Xbfkpfzpkx214[address] [place], [place] [address]Dr. Amina Shawn CO2 [Moles/Vol] 26.0 mmol/L Normal 21.0-32.0 [facility] Comment on above: Performed By: #### B MP ####[facility] Nwuvhbzcdl65[address] [place], [place] [address]Dr. Amina Shawn Creatinine [Mass/Vol] 1.46 mg/dL Critically high 0.70-1.30 [facility] Comment on above: Performed By: #### B MP ####[facility] Zgnjyrjtas95[address] [place] [address]Dr. Amina Escobar EGFR-AF LEBANESE 56 mL/min/1.73m2 Critically low >=60 [facility] Comment on above: Performed By: #### B MP ####[facility] Ifegkyjhoi87[address] [place] [address]Dr. Amina Escobar EGFR-NON AF LEBANESE 46 mL/min/1.73m2 Critically low >=60 [facility] Comment on above: Performed By: #### B MP ####[facility] Ucrvfdbfbk7096 [place] [address]Dr. Kandielda Shawn Glucose [Mass/Vol] 107 mg/dL Critically high 74-106 [facility] Comment on above: Performed By: #### B MP ####[facility] Lwlpfbimeq1591 [place] [address]Dr. Amina Escobar Potassium [Moles/Vol] 4.2 mmol/L Normal 3.5-5.1 [facility] Comment on above: Performed By: #### B MP ####[facility] Gdspkbfofi054[address] [place], [place] [address]Dr. Amina Escobar Sodium [Moles/Vol] 146 mmol/L Critically high 136-145 [facility] Comment on above: Performed By: #### B MP ####[facility] Amlchlpqpq3339[address] [place], [place] [address]Dr. Amina Escobar Urea nitrogen [Mass/Vol] 55.0 mg/dL Critically high 7.0-18.0 [facility] Comment on above: Performed By: #### B MP ####[facility] Mrptsltqiz278[address] [place], [place] [address]Dr. Amina Escobar Urea nitrogen/Creatinine [Mass ratio] 37.7 mg/mg Normal [facility] Comment on above: Performed By: #### B MP ####[facility] Goysuzejiv0988[address] [place], [place] [address]Dr. Amina Escobar BNPon 04-24-2022 Natriuretic peptide B (Bld) [Mass/Vol] 2519.0 pg/mL Critically high <=1,800.0 [facility] Comment on above: Performed By: #### T SH, HSTROPN, CMP, BNP ####[facility] Enoxpbvbqk85[address] [place] [address]Dr. Amina Escobar CBC AUTO DIFFon 04-24-2022 BASO # 0.0 103/ul Normal 0.0-0.1 [facility] Comment on above: Performed By: #### C BC ####[facility] Hndqllqgkf099[address] [place], [place] [address]Dr. Amina Escobar Basophils/100 WBC (Bld) 0.4 % Normal 0.2-2.0 [facility] Comment on above: Performed By: #### C BC ####[facility] Iwzncisurd6045[address] [place], [place] [address]DrMemo Escobar EO # 0.2 103/ul Normal 0.0-0.7 [facility] Comment on above: Performed By: #### C BC ####[facility] Bzesfydatp66225[address] [place], [place] [address]DrMemo Escobar Eosinophils/100 WBC (Bld) 1.4 % Normal 0.9-7.0 [facility] Comment on above: Performed By: #### C BC ####[facility] Wgbmzkvfua9428[address] [place], [place] [address]DrMemo Escobar Erythrocyte distribution width (RBC) [Ratio] 20.1 % Critically high 11.0-15.0 [facility] Comment on above: Performed By: #### C BC ####[facility] Gbivvmhltk226[address] [place], [place] [address]DrMemo Escobar Hematocrit (Bld) [Volume fraction] 20.8 % Critically low 42.0-54.0 [facility] Comment on above: Performed By: #### C BC ####[facility] Kppbvvkytp492[address] [place], [place] [address]DrMemo Escobar Hemoglobin (Bld) [Mass/Vol] 6.5 g/dL Critically low 14.0-18.0 [facility] Comment on above: Performed By: #### C BC ####[facility] Tuznryftam7[address] [place], [place] [address]DrMemo Escobar IG # 0.08 10e3/ul Critically high 0.00-0.03 [facility] Comment on above: Performed By: #### C BC ####[facility] Ibtadmatso145[address] [place], [place] [address]DrMemo Escobar IG % 0.7 % Critically high 0.0-0.5 [facility] Comment on above: Performed By: #### C BC ####[facility] Zfdemvadrm289[address] [place], [place] [address]DrMemo Escobar LYMPH # 0.7 103/ul Critically low 1.2-3.8 [facility] Comment on above: Performed By: #### C BC ####[facility] Iotftphaww5423 [place] [address]DrMemo Escobar Lymphocytes/100 WBC (Bld) 6.4 % Critically low 20.5-60.0 [facility] Comment on above: Performed By: #### C BC ####[facility] Sugmxnojad5530[address] [place], [place] [address]DrMemo Escobar MANUAL DIFF REQ NO Normal [facility] Comment on above: Performed By: #### C BC ####[facility] Dgafsipsgb6664[address] [place], [place] [address]DrMemo Escobar MCH (RBC) [Entitic mass] 28.5 pg Normal 25.9-34.0 [facility] Comment on above: Performed By: #### C BC ####[facility] Qfktfnboqv732[address] [place], [place] [address]DrMemo Escobar MCHC (RBC) [Mass/Vol] 31.3 g/dL Normal 29.9-35.2 [facility] Comment on above: Performed By: #### C BC ####[facility] Dfvujhidnb615[address] [place], [place] [address]DrMemo Escobar MCV (RBC) [Entitic vol] 91.2 fL Normal 80.0-94.0 [facility] Comment on above: Performed By: #### C BC ####[facility] Unqagvyzzq3239[address] [place], [place] [address]DrMemo Escobar MONO # 0.6 103/ul Normal 0.3-0.8 [facility] Comment on above: Performed By: #### C BC ####[facility] Efpxvvmaiu1136[address] [place], [place] [address]DrMemo Escobar Monocytes/100 WBC (Bld) 5.0 % Normal 1.7-12.0 [facility] Comment on above: Performed By: #### C BC ####[facility] Xpdlnvnwfk1436[address] [place], [place] [address]DrMemo Escobar NEUT # 9.4 103/ul Critically high 1.4-6.5 [facility] Comment on above: Performed By: #### C BC ####[facility] Lqqflungrt1629 [place] [address]Dr. Amina Escobar Neutrophils/100 WBC (Bld) 86.1 % Critically high 43.0-75.0 [facility] Comment on above: Performed By: #### C BC ####[facility] Nvdjywlcwf5560 [place] [address]Dr. Amina Escobar Platelet mean volume (Bld) [Entitic vol] 10.8 fL Normal 9.5-13.5 [facility] Comment on above: Performed By: #### C BC ####[facility] Muxhkyfpbg8754 [place] [address]Dr. Amina Escobar PLT 202 103/ul Normal 150-450 [facility] Comment on above: Performed By: #### C BC ####[facility] Qbqcvxoiwv3333 [place] [address]Dr. Amina Escoabr RBC 2.28 106/ul Critically low 4.70-6.10 [facility] Comment on above: Performed By: #### C BC ####[facility] Hmbxwfxeju9088 [place] [address]Dr. Amina Escobar WBC 10.9 103/ul Normal 4.0-11.0 [facility] Comment on above: Performed By: #### C BC ####[facility] Cvutqoxlhw[address] [place] [address]Dr. Amina Escobar CT CSPINE WO CONon 2 CT CSPINE WO CON Normal [facility] CT HEAD WO CONon 04-24-2022 CT HEAD WO CON Normal [facility] CULTURE URINEon 04-24-2022 CULTURE URINE Culture Observations : LIGHT GROWTH OF MIXED SKIN NERISSA. NO POTENTIAL PATHOGENS SEEN. Normal [facility] Comment on above: Performed By: #### U RCX ####[facility] Dsiajvggep7[address] [place] [address]Dr. Amina Escobar Covid-19 PCR ([facility])on 04-11 SARS-CoV-2 (COVID-19) RNA MARSHALL+probe Ql (Unsp spec) Not detected Normal NOT DETECTED [facility] Comment on above: Result Comment: When diagnostic [...] for this test is supported by the [place] of [employer] and Human Service's declaration that [...] longer be used). Performed By: #### C [facility]BA[facility] ####[facility] Lznhnqfved732[address] [place], [place] [address]Dr. Amina Escobar ER URINE PROFILEon 2 Bilirubin Ql (U) Negative Normal NEGATIVE [facility] Comment on above: Performed By: #### DMITRI ROSALES ####[facility] Invxrlfzyw9720[address] [place], [place] [address]Dr. Amina Escobar Clarity (U) CLEAR Normal CLEAR [facility] Comment on above: Performed By: #### DMITRI ROSALES ####[facility] Zpiqkfxskt377[address] [place], [place] [address]Dr. Amina Escobar Color (U) LT. YELLOW Normal YELLOW [facility] Comment on above: Performed By: #### DMITRI ROSALES ####[facility] Utcnpvcwse637[address] [place], [place] [address]Dr. Amina Escobar ERUAHD A micrscopic examina tion will be performed if indicated. Normal [facility] Comment on above: Performed By: #### DMITRI ROSALES ####[facility] Umewvbjmft7349 [place] [address]Dr. Amina Escobar Glucose Ql (U) Negative Normal NEGATIVE [facility] Comment on above: Performed By: #### DMITRI ROSALES ####[facility] Kjmflmbpyd040[address] [place], [place] [address]Dr. Amina Escobar Hemoglobin Ql (U) Negative Normal NEGATIVE [facility] Comment on above: Performed By: #### NATALYA ROSALESRO ####[facility] Tixuzdmtwe606[address] [place], [place] [address]Dr. Amina Escobar Ketones Ql (U) Negative Normal NEGATIVE [facility] Comment on above: Performed By: #### NATALYA ROSALESRO ####[facility] Qhyimjfokb907[address] [place], [place] [address]Dr. Amina Escobar LEUKOCYTES TRACE Abnormal NEGATIVE [facility] Comment on above: Performed By: #### NATALYA ROSALESRO ####[facility] Jleiceoosf162[address] [place], [place] [address]Dr. Amina Escobar Nitrite Ql (U) Negative Normal NEGATIVE [facility] Comment on above: Performed By: #### NATALYA ROSALESRO ####[facility] Uiwwtkbjar7623[address] [place], [place] [address]Dr. Amina Escobar pH (U) 5.5 [pH] Normal 5-9 [facility] Comment on above: Performed By: #### NATALYA ROSALESRO ####[facility] Pjznikvmbv067[address] [place], [place] [address]Dr. Amina Escobar SPEC GRAVITY 1.015 Normal 1.005-<=1. 025 [facility] Comment on above: Performed By: #### NATALYA ROSALESRO ####[facility] Wwysxwcuoq815[address] [place], [place] [address]Dr. Amina Escobar UA PROTEIN Negative Normal NEGATIVE/ TRACE [facility] Comment on above: Performed By: #### NATALYA ROSALESRO ####[facility] Bxduxuimkv779[address] [place], [place] [address]Dr. Amina Escobar UR MICRO IND INDICATED Normal [facility] Comment on above: Performed By: #### E NATALYA HIGGINSRO ####[facility] Svodnunyjn58[address] [place] [address]Dr. Amina Escobar Urobilinogen Qn (U) 0.2 {Mel'U}/dL Normal 0.2 - 1. 0 [facility] Comment on above: Performed By: #### E NATALYA HIGGINSRO ####[facility] Yhbxsylcjq3725 [place] [address]Dr. Kandielda Escobar IRONon 04-24-2022 Iron [Mass/Vol] 36.0 ug/dL Critically low 65.0-175.0 [facility] Comment on above: Performed By: #### I PHIL ####[facility] Crpbdxpybw527[address] [place], [place] [address]Dr. Kandielda Escobar OCC BLD IMMUNO SCREENon 04-11 OCCULT BLOOD Positive Abnormal NEGATIVE [facility] Comment on above: Performed By: #### O BSCRN ####[facility] Itfpmrkpkm4917[address] [place], [place] [address]Dr. Kandielda Escobar PROF 14(COMP METB)on 022 Albumin [Mass/Vol] 3.2 g/dL Critically low 3.4-5.0 [facility] Comment on above: Performed By: #### T SH, HSTROPN, CMP, BNP ####[facility] Fguiftaaeu264[address] [place] [address]Dr. Amina Escobar Albumin/Globulin [Mass ratio] 1.0 {ratio} Normal [facility] Comment on above: Performed By: #### T SH, HSTROPN, CMP, BNP ####[facility] Andlrdbspr9234 [place] [address]Dr. Kandielda Escobar ALP [Catalytic activity/Vol] 148 U/L Critically high 46-116 [facility] Comment on above: Performed By: #### T SH, HSTROPN, CMP, BNP ####[facility] Jmbbvskpik5[address] [place] [address]Dr. Amina Escobar ALT [Catalytic activity/Vol] 19 U/L Normal 16-63 [facility] Comment on above: Performed By: #### T SH, HSTROPN, CMP, BNP ####[facility] Avtafgrghh4172 [place] [address]Dr. Amina Escobar Anion gap [Moles/Vol] 12.0 mmol/L Normal [facility] Comment on above: Performed By: #### T SH, HSTROPN, CMP, BNP ####[facility] Ccykxnsomv7388 [place] [address]Dr. Amina Escobar AST [Catalytic activity/Vol] 11 U/L Critically low 15-37 [facility] Comment on above: Performed By: #### T SH, HSTROPN, CMP, BNP ####[facility] Ukmccjyfgv8325 [place] [address]Dr. Amina Escobar Bilirubin [Mass/Vol] 0.5 mg/dL Normal 0.2-1.0 [facility] Comment on above: Performed By: #### T SH, HSTROPN, CMP, BNP ####[facility] Jnfmnzhmyv78[address] [place], [place] [address]Dr. Amina Escobar Calcium [Mass/Vol] 8.1 mg/dL Critically low 8.5-10.1 Th [facility] Comment on above: Performed By: #### T SH, HSTROPN, CMP, BNP ####[facility] Qvnjgbglkh010[address] [place], [place] [address]Dr. Amina Escobar Chloride [Moles/Vol] 110 mmol/L Critically high 98-107 [facility] Comment on above: Performed By: #### T SH, HSTROPN, CMP, BNP ####[facility] Jubcbkbbmr[address] [place], [place] [address]Dr. Amina Escobar CO2 [Moles/Vol] 24.0 mmol/L Normal 21.0-32.0 [facility] Comment on above: Performed By: #### T SH, HSTROPN, CMP, BNP ####[facility] Bxcujqamgv[address] [place], [place] [address]Dr. Amina Escobar Creatinine [Mass/Vol] 1.55 mg/dL Critically high 0.70-1.30 [facility] Comment on above: Performed By: #### T SH, HSTROPN, CMP, BNP ####[facility] [address] [place] [address]Dr. Kandilan Escobar EGFR-AF LEBANESE 52 mL/min/1.73m2 Critically low >=60 [facility] Comment on above: Performed By: #### T SH, HSTROPN, CMP, BNP ####[facility] Ttytzwoib[address] [place] [address]Dr. Yilan Escobar EGFR-NON AF LEBANESE 43 mL/min/1.73m2 Critically low >=60 [facility] Comment on above: Performed By: #### T SH, HSTROPN, CMP, BNP ####[facility] Icmxahyhux064[address] [place], [place] [address]Dr. Amina Escobar Globulin (S) [Mass/Vol] 3.3 g/dL Normal [facility] Comment on above: Performed By: #### T SH, HSTROPN, CMP, BNP ####[facility] Ovlewtmekw230[address] [place], [place] [address]Dr. Amina Escobar Glucose [Mass/Vol] 139 mg/dL Critically high 74-106 [facility] Comment on above: Performed By: #### T SH, HSTROPN, CMP, BNP ####[facility] Cqxkewpozp[address] [place], [place] [address]Dr. Kandilan Escobar Potassium [Moles/Vol] 4.0 mmol/L Normal 3.5-5.1 [facility] Comment on above: Performed By: #### T SH, HSTROPN, CMP, BNP ####[facility] Aosrclcsbo55[address] [place], [place] [address]Dr. Kandilan Escobar Protein [Mass/Vol] 6.5 g/dL Normal 6.4-8.2 [facility] Comment on above: Performed By: #### T SH, HSTROPN, CMP, BNP ####[facility] Eangxwhcxx[address] [place] [address]Dr. Kandilan Escobar Sodium [Moles/Vol] 142 mmol/L Normal 136-145 [facility] Comment on above: Performed By: #### T SH, HSTROPN, CMP, BNP ####[facility] Pshqrlpvlm[address] [place] [address]Dr. Amina Escobar Urea nitrogen [Mass/Vol] 58.0 mg/dL Critically high 7.0-18.0 [facility] Comment on above: Performed By: #### T SH, HSTROPN, CMP, BNP ####[facility] Fgtkppdpwy0[address] [place] [address]Dr. Amina Escobar Urea nitrogen/Creatinine [Mass ratio] 37.4 mg/mg Normal [facility] Comment on above: Performed By: #### T SH, HSTROPN, CMP, BNP ####[facility] Bedwriufrc310[address] [place], [place] [address]Dr. Amina Escobar PROTIMEon 04-24-2022 INR Coag (PPP) [Relative time] 2.33 {INR} Normal [facility] Comment on above: Performed By: #### P T, PTT ####[facility] Vxaaxexykt254[address] [place], [place] [address]Dr. Amina Escobar INR GUIDELINES SEE BELOW Normal [facility] Comment on above: Result Comment: LIMA RED INR: 2.0 - 3.0 CONDITIONS NOT LISTED BELOW 2.5 - 3.5 FOR PROSTHETIC HEART VALVE REPLACEMENT 2.5 - 3.5 RECURRENT THROMBOSIS Performed By: #### P T, PTT ####[facility] Gnxsblckmv189[address] [place], [place] [address]Dr. Amina Escobar PT Coag (PPP) [Time] 23.8 s Critically high 9.0-11.6 [facility] Comment on above: Performed By: #### P T, PTT ####[facility] Uotpfatkao5416[address] [place], [place] [address]Dr. Amina Escobar PTTon 04-24-2022 aPTT Coag (Bld) [Time] 37.6 s Critically high 22.3-36.2 [facility] Comment on above: Performed By: #### P T, PTT ####[facility] Jggkloaxxy0613[address] [place], [place] [address]Dr. Amina Escobar TROPONIN, HIGH SENSITIVITYon 04-24-2022 HSTROP 19.5 pg/mL Normal 4.0-76.1 [facility] Comment on above: Result Comment: CUT- OFF POINTS HAVE BEEN ESTABLISHED BASED ON THE FOURTH UNIVERSAL DEFINITIONS OF MYOCARDIALINFARCTION. THE UPPER REFERENCE LIMIT (URL) OF TROPONIN, DEFINED THE 99TH PERCENTILE OFcTnI DISTRIBUTION IN A REFERENCE POPULATION, HAS BEEN CONFIRMED THE DECISION THRESHOLDFOR HI DIAGNOSIS. Performed By: #### T SH, HSTROPN, CMP, BNP ####[facility] Nodaqiohbk[address] [place] [address]Dr. Kandielda Escobar TSHon 04-24-2022 TSH 7.569 uIU/mL Critically high 0.358-3.74 0 [facility] Comment on above: Performed By: #### T SH, HSTROPN, CMP, BNP ####[facility] Xdzaftpnbt216[address] [place], [place] [address]Dr. Amina Escobar TYPE AND SCREENon 04-24-2022 TYPE AND SCREEN Negative Normal [facility] Comment on above: Performed By: #### Skyla NS ####[facility] Hxlmdfyupq83[address] [place], [place] [address]Dr. Amina Escobar URINE MICROSCOPIC ONLYon BACTERIA TRACE Abnormal NONE SEEN [facility] Comment on above: Performed By: #### NATALYA ROSALESRO ####[facility] Tuobsourtn125[address] [place], [place] [address]Dr. Amina Escobar Bacteria identified Cx Nom (U) INDICATED Normal [facility] Comment on above: Performed By: #### NATALYA ROSALESRO ####[facility] Mzgjyzacrt480[address] [place], [place] [address]Dr. Amina Escobar CAST NONE SEEN Normal NONE SEEN [facility] Comment on above: Performed By: #### NATALYA ROSALESRO ####[facility] Bgydgeslht5729[address] [place], [place] [address]Dr. Amina Escobar Crystals LM Nom (Urine sed) NONE SEEN Normal NONE SEEN [facility] Comment on above: Performed By: #### NATALYA ROSALESRO ####[facility] Weujydpdtk444[address] [place], [place] [address]Dr. Amina Escobar Epithelial cells LM Ql (Urine sed) RARE Normal NONE SEEN /RARE [facility] Comment on above: Performed By: #### DMITRI ROSALES ####[facility] Sfbysgydma[address] [place] [address]Dr. Amina Escobar MUCOUS TRACE Abnormal NONE SEEN [facility] Comment on above: Performed By: #### NATALYA ROSALESRO ####[facility] Ybbqekanfi[address] [place] [address]Dr. Amina Escobar RBC NONE SEEN Abnormal 0-2 [facility] Comment on above: Performed By: #### DMITRI ROSALES ####[facility] Iwzwvndjso16[address] [place] [address]Dr. Amina Escobar WBC 0-2 Abnormal NONE SEEN [facility] Comment on above: Performed By: #### DMITRI ROSALES ####[facility] Ykijyblgiq083[address] [place], [place] [address]Dr. Amina Escobar XR CHEST 1 Von 04-24-2022 XR CHEST 1 V Normal [facility] XR PELVIS 1_2 VIEWSon 2021 XR PELVIS 1_2 VIEWS Normal [facility] HEMOGRAM AND PLATELon 2021 Hematocrit (Bld) [Volume fraction] 37.9 % Critically low 42.0-54.0 [facility] Comment on above: Performed By: #### H H ####[facility] Ngcbgwxqeb0164[address] [place], [place] [address]DrMemo Escobar Hemoglobin (Bld) [Mass/Vol] 11.6 g/dL Critically low 14.0-18.0 [facility] Comment on above: Performed By: #### H H ####[facility] Goirzuqepv[address] [place] [address]DrMemo Escobar MCH (RBC) [Entitic mass] 27.1 pg Normal 25.9-34.0 [facility] Comment on above: Performed By: #### H H ####[facility] Msecgcpzpa[address] [place] [address]Dr. Amina Escobar MCHC (RBC) [Mass/Vol] 30.6 g/dL Normal 29.9-35.2 [facility] Comment on above: Performed By: #### H H ####[facility] Fosrcrzcvq08[address] [place] [address]DrMemo Amina Escobar MCV (RBC) [Entitic vol] 88.6 fL Normal 80.0-94.0 [facility] Comment on above: Performed By: #### H H ####[facility] Qvgvffjquw018[address] [place], [place] [address]DrMemo Amina Shawn PLT 165 103/ul Normal 150-450 [facility] Comment on above: Performed By: #### H H ####[facility] Oexqulltqz427[address] [place], [place] [address]DrMemo Escobar RBC 4.28 106/ul Critically low 4.70-6.10 [facility] Comment on above: Performed By: #### H H ####[facility] Mlbkjtvnxh823[address] [place], [place] [address]DrMemo Escobar WBC 7.4 103/ul Normal 4.0-11.0 [facility] Comment on above: Performed By: #### H H ####[facility] Ofkedtunps313[address] [place], [place] [address]DrMemo Amina Shawn IRONon 04-10-2022 Iron [Mass/Vol] 66.0 ug/dL Normal 65.0-175.0 [facility] Comment on above: Performed By: #### I PHIL ####[facility] Dnhfrpiurz[address] [place], [place] [address]DrMemo Amina Shawn CBC AUTO DIFFon 02-16-2022 BASO # 0.1 103/ul Normal 0.0-0.1 [facility] Comment on above: Performed By: #### C BC ####[facility] Jyavkjbjvz047[address] [place], [place] [address]DrMemo Amina Shawn Basophils/100 WBC (Bld) 0.8 % Normal 0.2-2.0 [facility] Comment on above: Performed By: #### C BC ####[facility] Ywkyuyrusv774[address] [place], [place] [address]Dr. Amina Escobar EO # 0.2 103/ul Normal 0.0-0.7 [facility] Comment on above: Performed By: #### C BC ####[facility] Hztalehilo8[address] [place] [address]Dr. Amina Escobar Eosinophils/100 WBC (Bld) 3.2 % Normal 0.9-7.0 [facility] Comment on above: Performed By: #### C BC ####[facility] Aakuugzlbj04[address] [place] [address]Dr. Amina Escobar Erythrocyte distribution width (RBC) [Ratio] 17.6 % Critically high 11.0-15.0 [facility] Comment on above: Performed By: #### C BC ####[facility] Ewzqnrupxj613[address] [place], [place] [address]Dr. Amina Escobar Hematocrit (Bld) [Volume fraction] 36.5 % Critically low 42.0-54.0 [facility] Comment on above: Performed By: #### C BC ####[facility] Fkfzyaqqku5024[address] [place], [place] [address]Dr. Amina Escobar Hemoglobin (Bld) [Mass/Vol] 11.2 g/dL Critically low 14.0-18.0 [facility] Comment on above: Performed By: #### C BC ####[facility] Gvzcdhbesp01[address] [place], [place] [address]Dr. Amina Escobar IG # 0.02 10e3/ul Normal 0.00-0.03 [facility] Comment on above: Performed By: #### C BC ####[facility] Rtdzigqiej[address] [place] [address]Dr. Amina Escobar IG % 0.3 % Normal 0.0-0.5 [facility] Comment on above: Performed By: #### C BC ####[facility] Eijhmlmwuz919[address] [place], [place] [address]Dr. Amina Escobar LYMPH # 0.9 103/ul Critically low 1.2-3.8 [facility] Comment on above: Performed By: #### C BC ####[facility] Oncfthvkaq[address] [place] [address]Dr. Amina Escobar Lymphocytes/100 WBC (Bld) 14.2 % Critically low 20.5-60.0 [facility] Comment on above: Performed By: #### C BC ####[facility] Mvxgtrjaax6[address] [place] [address]Dr. Amina Escobar MANUAL DIFF REQ NO Normal [facility] Comment on above: Performed By: #### C BC ####[facility] Qxhrrhzlqf55[address] [place] [address]Dr. Amina Escobar MCH (RBC) [Entitic mass] 26.4 pg Normal 25.9-34.0 [facility] Comment on above: Performed By: #### C BC ####[facility] Wohctaaykg8615[address] [place], [place] [address]Dr. Amian Escobar MCHC (RBC) [Mass/Vol] 30.7 g/dL Normal 29.9-35.2 [facility] Comment on above: Performed By: #### C BC ####[facility] Vjlnqhdqjx[address] [place], [place] [address]Dr. Amina Esocbar MCV (RBC) [Entitic vol] 86.1 fL Normal 80.0-94.0 [facility] Comment on above: Performed By: #### C BC ####[facility] Opmavsmpoa20[address] [place], [place] [address]Dr. Amina Escobar MONO # 0.6 103/ul Normal 0.3-0.8 [facility] Comment on above: Performed By: #### C BC ####[facility] Edmwhigcif3634[address] [place], [place] [address]Dr. Amina Escobar Monocytes/100 WBC (Bld) 8.7 % Normal 1.7-12.0 [facility] Comment on above: Performed By: #### C BC ####[facility] Vsmkdbtzmc6[address] [place], [place] [address]Dr. Amina Escobar NEUT # 4.6 103/ul Normal 1.4-6.5 [facility] Comment on above: Performed By: #### C BC ####[facility] Nhmecyqume367[address] [place], [place] [address]Dr. Amina Shawn Neutrophils/100 WBC (Bld) 72.8 % Normal 43.0-75.0 [facility] Comment on above: Performed By: #### C BC ####[facility] Mlraaakaiy[address] [place] [address]Dr. Amina Shawn Platelet mean volume (Bld) [Entitic vol] 11.0 fL Normal 9.5-13.5 [facility] Comment on above: Performed By: #### C BC ####[facility] Rquqsmjlnh8[address] [place] [address]Dr. Amina Escobar PLT 183 103/ul Normal 150-450 [facility] Comment on above: Performed By: #### C BC ####[facility] Xyfxfjwlge3355[address] [place], [place] [address]Dr. Amina Escobar RBC 4.24 106/ul Critically low 4.70-6.10 [facility] Comment on above: Performed By: #### C BC ####[facility] Kkyaplznnd1401[address] [place], [place] [address]Dr. Amina Escobar WBC 6.3 103/ul Normal 4.0-11.0 [facility] Comment on above: Performed By: #### C BC ####[facility] Zuamtathdu[address] [place], [place] [address]Dr. Amina Shawn CULTURE URINEon 02-16-2022 CULTURE URINE Culture Observations : NO GROWTH. Normal [facility] Comment on above: Performed By: #### U RCX ####[facility] Jrhwjcbyon107[address] [place], [place] [address]Dr. Amina Escobar PROF 14(COMP METB)on 022 Albumin [Mass/Vol] 3.5 g/dL Normal 3.4-5.0 [facility] Comment on above: Performed By: #### C MP ####[facility] Hqqighdcqt526[address] [place], [place] [address]Dr. Amina Escobar Albumin/Globulin [Mass ratio] 1.0 {ratio} Normal [facility] Comment on above: Performed By: #### C MP ####[facility] Bqihjjsrql[address] [place] [address]Dr. Amina Shawn ALP [Catalytic activity/Vol] 199 U/L Critically high 46-116 [facility] Comment on above: Performed By: #### C MP ####[facility] Oukssbluuo944[address] [place], [place] [address]Dr. Amina Shawn ALT [Catalytic activity/Vol] 17 U/L Normal 16-63 [facility] Comment on above: Performed By: #### C MP ####[facility] Uwqhcifqzg328[address] [place], [place] [address]Dr. Amina Escobar Anion gap [Moles/Vol] 13.3 mmol/L Normal [facility] Comment on above: Performed By: #### C MP ####[facility] Gkezmtpoax240[address] [place], [place] [address]Dr. Amina Escobar AST [Catalytic activity/Vol] 10 U/L Critically low 15-37 [facility] Comment on above: Performed By: #### C MP ####[facility] Rgorxuwgxg830[address] [place], [place] [address]Dr. Amina Escobar Bilirubin [Mass/Vol] 0.4 mg/dL Normal 0.2-1.0 [facility] Comment on above: Performed By: #### C MP ####[facility] Ofsenzkruf[address] [place], [place] [address]Dr. Amina Escobar Calcium [Mass/Vol] 8.5 mg/dL Normal 8.5-10.1 [facility] Comment on above: Performed By: #### C MP ####[facility] Nedlpkocgh1555[address] [place], [place] [address]Dr. Amina Escobar Chloride [Moles/Vol] 110 mmol/L Critically high 98-107 [facility] Comment on above: Performed By: #### C MP ####[facility] Eeizmrnqjw823[address] [place], [place] [address]Dr. Amina Escobar CO2 [Moles/Vol] 26.0 mmol/L Normal 21.0-32.0 [facility] Comment on above: Performed By: #### C MP ####[facility] Uctwlomyvv5627[address] [place], [place] [address]Dr. Amina Escobar Creatinine [Mass/Vol] 1.35 mg/dL Critically high 0.70-1.30 [facility] Comment on above: Performed By: #### C MP ####[facility] B[address]pehkcen[address] [place] [address]Dr. Amina Escobar EGFR-AF LEBANESE >60 Normal >=60 [facility] Comment on above: Performed By: #### C MP ####[facility] Zklhbwnicd[address] [place] [address]Dr. Amina Shawn EGFR-NON AF LEBANESE 50 mL/min/1.73m2 Critically low >=60 [facility] Comment on above: Performed By: #### C MP ####[facility] Tbnjkagkue438[address] [place], [place] [address]Dr. Amina Shawn Globulin (S) [Mass/Vol] 3.6 g/dL Normal [facility] Comment on above: Performed By: #### C MP ####[facility] Hwzcoppbmb58[address] [place], [place] [address]Dr. Amina Shawn Glucose [Mass/Vol] 109 mg/dL Critically high 74-106 [facility] Comment on above: Performed By: #### C MP ####[facility] Mscndpdnoe127[address] [place], [place] [address]Dr. Amina Shawn Potassium [Moles/Vol] 4.3 mmol/L Normal 3.5-5.1 [facility] Comment on above: Performed By: #### C MP ####[facility] Rfjzgljfwn11[address] [place], [place] [address]Dr. Amina Escobar Protein [Mass/Vol] 7.1 g/dL Normal 6.4-8.2 [facility] Comment on above: Performed By: #### C MP ####[facility] Jsgdbrvhwm3335[address] [place], [place] [address]Dr. Amina Escobar Sodium [Moles/Vol] 145 mmol/L Normal 136-145 [facility] Comment on above: Performed By: #### C MP ####[facility] Vwdalmtptq916[address] [place], [place] [address]Dr. Amina Escobar Urea nitrogen [Mass/Vol] 34.0 mg/dL Critically high 7.0-18.0 [facility] Comment on above: Performed By: #### C MP ####[facility] Glrlhxebgm2265[address] [place], [place] [address]Dr. Amina Escobar Urea nitrogen/Creatinine [Mass ratio] 25.2 mg/mg Normal [facility] Comment on above: Performed By: #### C MP ####[facility] Vtczhljvaq429[address] [place], [place] [address]Dr. Amina Escobar UA (CLEAN/CATCH) MICROSCOPIC IF INDICATEon 02-16-2022 Bilirubin Ql (U) Negative Normal NEGATIVE [facility] Comment on above: Performed By: #### U ARMICR ####[facility] Ovgusdezhq736[address] [place], [place] [address]Dr. Amina Escobar Clarity (U) CLEAR Normal CLEAR [facility] Comment on above: Performed By: #### U ARMICR ####[facility] Esmafaajsw2930[address] [place], [place] [address]Dr. Amina Escobar Color (U) YELLOW Normal YELLOW [facility] Comment on above: Performed By: #### U ARMICR ####[facility] Rbzjfkooek2034[address] [place], [place] [address]Dr. Amina Escobar Glucose Ql (U) Negative Normal NEGATIVE [facility] Comment on above: Performed By: #### U ARMICR ####[facility] Qjzssmwfsf178[address] [place], [place] [address]Dr. Amina Escobar Hemoglobin Ql (U) Negative Normal NEGATIVE [facility] Comment on above: Performed By: #### U ARMICR ####[facility] Yyiqvhrsrd833[address] [place], [place] [address]Dr. Amina Escobar Ketones Ql (U) Negative Normal NEGATIVE [facility] Comment on above: Performed By: #### U ARMICR ####[facility] Aiboagpsst449[address] [place], [place] [address]Dr. Amina Escobar LEUKOCYTES Negative Normal NEGATIVE [facility] Comment on above: Performed By: #### U ARMICR ####[facility] Ceojuagiaa000[address] [place], [place] [address]Dr. Amina Escobar Nitrite Ql (U) Negative Normal NEGATIVE [facility] Comment on above: Performed By: #### U ARMICR ####[facility] Qnlsqqlcyn[address] [place] [address]Dr. Amina Escobar pH (U) 5.5 [pH] Normal 5-9 [facility] Comment on above: Performed By: #### U ARMICR ####[facility] Fwtnsqmify[address] [place] [address]Dr. Amina Escobar SPEC GRAVITY 1.025 Normal 1.005-<=1. 025 [facility] Comment on above: Performed By: #### U ARMICR ####[facility] Nxudeikjty0839[address] [place], [place] [address]Dr. Kandielda Escobar UA PROTEIN Negative Normal NEGATIVE/ TRACE [facility] Comment on above: Performed By: #### U ARMICR ####[facility] Ccryudxqff9024[address] [place], [place] [address]Dr. Amina Escobar UR MICRO IND MICROSCOPIC ALREADY ORDERED Normal [facility] Comment on above: Performed By: #### U ARMICR ####[facility] Fexqoyxfou943[address] [place], [place] [address]Dr. Kandielda Escobar Urobilinogen Qn (U) 0.2 {Mel'U}/dL Normal 0.2 - 1. 0 [facility] Comment on above: Performed By: #### U ARMICR ####[facility] Cyifkndsld[address] [place], [place] [address]Dr. Amina Escobar ECHOCARDIO M/2D COMPLETEon 0 02-11-2022 ECHOCARDIO M/2D COMPLETE Normal [facility] CBC AUTO DIFFon 01-06-2022 BASO # 0.0 103/ul Normal 0.0-0.1 [facility] Comment on above: Performed By: #### C BC ####[facility] [address]elcrclobz[address] [place] [address]Dr. Kandielda Escobar Basophils/100 WBC (Bld) 0.7 % Normal 0.2-2.0 [facility] Comment on above: Performed By: #### C BC ####[facility] Qngelbnzwc[address] [place] [address]Dr. Amina Escobar EO # 0.3 103/ul Normal 0.0-0.7 [facility] Comment on above: Performed By: #### C BC ####[facility] Wepcrbunod[address] [place] [address]Dr. Amina Escobar Eosinophils/100 WBC (Bld) 5.4 % Normal 0.9-7.0 [facility] Comment on above: Performed By: #### C BC ####[facility] Jsaexbtdob[address] [place], [place] [address]Dr. Amina Escobar Erythrocyte distribution width (RBC) [Ratio] 18.2 % Critically high 11.0-15.0 [facility] Comment on above: Performed By: #### C BC ####[facility] Ikobugtduo[address] [place], [place] [address]Dr. Amina Escobar Hematocrit (Bld) [Volume fraction] 35.6 % Critically low 42.0-54.0 [facility] Comment on above: Performed By: #### C BC ####[facility] Obwquubzlw[address] [place], [place] [address]Dr. Amina Escobar Hemoglobin (Bld) [Mass/Vol] 10.9 g/dL Critically low 14.0-18.0 [facility] Comment on above: Performed By: #### C BC ####[facility] Ickemokutp[address] [place], [place] [address]Dr. Amina Escobar IG # 0.02 10e3/ul Normal 0.00-0.03 [facility] Comment on above: Performed By: #### C BC ####[facility] Ykolaxonlk[address] [place] [address]Dr. Amina Escobar IG % 0.4 % Normal 0.0-0.5 [facility] Comment on above: Performed By: #### C BC ####[facility] [address]wkf[address]uf[address] [place], [place] [address]Dr. Amina Escobar LYMPH # 0.8 103/ul Critically low 1.2-3.8 [facility] Comment on above: Performed By: #### C BC ####[facility] Lnxnbcjfcc1443 [place] [id number]. Amina Escobar Lymphocytes/100 WBC (Bld) 13.4 % Critically low 20.5-60.0 [facility] Comment on above: Performed By: #### C BC ####[facility] Hjemgipvmb4096 [place] [address]Dr. Kandielda Escobar MANUAL DIFF REQ NO Normal [facility] Comment on above: Performed By: #### C BC ####[facility] Qlwkbmvhla0245 [place] [address]Dr. Amina Shawn MCH (RBC) [Entitic mass] 26.6 pg Normal 25.9-34.0 [facility] Comment on above: Performed By: #### C BC ####[facility] Pfkzlomibw[address] [place], [place] [address]Dr. Amina Shawn MCHC (RBC) [Mass/Vol] 30.6 g/dL Normal 29.9-35.2 [facility] Comment on above: Performed By: #### C BC ####[facility] Lewtsiduhz6[address] [place] [address]Dr. Amina Escobar MCV (RBC) [Entitic vol] 86.8 fL Normal 80.0-94.0 [facility] Comment on above: Performed By: #### C BC ####[facility] Arkspoufjd27[address] [place] [address]Dr. Kandielda Shawn MONO # 0.6 103/ul Normal 0.3-0.8 [facility] Comment on above: Performed By: #### C BC ####[facility] Kjrfsylvbj9927 [place] [address]Dr. Kandielda Escobar Monocytes/100 WBC (Bld) 10.4 % Normal 1.7-12.0 [facility] Comment on above: Performed By: #### C BC ####[facility] F[address]au[address] [place], [place] [address]Dr. Amina Escobar NEUT # 3.9 103/ul Normal 1.4-6.5 [facility] Comment on above: Performed By: #### C BC ####[facility] Iesflbigjf2322 [place] [address]Dr. Amina Escobar Neutrophils/100 WBC (Bld) 69.7 % Normal 43.0-75.0 [facility] Comment on above: Performed By: #### C BC ####[facility] Nvixrqopwx7938 [place] [address]Dr. Amina Escobar Platelet mean volume (Bld) [Entitic vol] 10.6 fL Normal 9.5-13.5 [facility] Comment on above: Performed By: #### C BC ####[facility] Zkgkykfmln0798 [place] [address]Dr. Amina Escobar PLT 180 103/ul Normal 150-450 [facility] Comment on above: Performed By: #### C BC ####[facility] Cqzx[address]tu[address] [place], [place] [address]Dr. Amina Escobar RBC 4.10 106/ul Critically low 4.70-6.10 [facility] Comment on above: Performed By: #### C BC ####[facility] [address]ii[address]mah[address] [place], [place] [address]Dr. Amina Escobar WBC 5.6 103/ul Normal 4.0-11.0 [facility] Comment on above: Performed By: #### C BC ####[facility] Lhdolyuuud[address] [place], [place] [address]Dr. Amina Escobar IRONon 01-06-2022 Iron [Mass/Vol] 42.0 ug/dL Critically low 65.0-175.0 [facility] Comment on above: Performed By: #### I PHIL ####[facility] Poqkptbxbc[address] [place], [place] [address]Dr. Amina Escobar CBC AUTO DIFFon 12-23-2021 BASO # 0.1 103/ul Normal 0.0-0.1 [facility] Comment on above: Performed By: #### C BC ####[facility] Ttmbecynok[address] [place], [place] [address]Dr. Amina Escobar Basophils/100 WBC (Bld) 0.9 % Normal 0.2-2.0 [facility] Comment on above: Performed By: #### C BC ####[facility] Rwhtnwcxol2289 [place] [address]Dr. Amina Escobar EO # 0.2 103/ul Normal 0.0-0.7 [facility] Comment on above: Performed By: #### C BC ####[facility] Gjuuheiwzm36[address] [place] [address]Dr. Amina Escobar Eosinophils/100 WBC (Bld) 3.6 % Normal 0.9-7.0 [facility] Comment on above: Performed By: #### C BC ####[facility] Dflbxxozfz[address] [place], [place] [address]Dr. Amina Escobar Erythrocyte distribution width (RBC) [Ratio] 19.5 % Critically high 11.0-15.0 [facility] Comment on above: Performed By: #### C BC ####[facility] Qmzsoyrkwm562[address] [place], [place] [address]Dr. Amina Escobar Hematocrit (Bld) [Volume fraction] 33.6 % Critically low 42.0-54.0 [facility] Comment on above: Performed By: #### C BC ####[facility] Dntvvgnmyf24[address] [place], [place] [address]Dr. Amina Escobar Hemoglobin (Bld) [Mass/Vol] 10.2 g/dL Critically low 14.0-18.0 [facility] Comment on above: Performed By: #### C BC ####[facility] Pfgzcxymmz[address] [place], [place] [address]Dr. Amina Escobar IG # 0.01 10e3/ul Normal 0.00-0.03 [facility] Comment on above: Performed By: #### C BC ####[facility] Hpgnxzpqqk[address] [place], [place] [address]Dr. Amina Escobar IG % 0.2 % Normal 0.0-0.5 [facility] Comment on above: Performed By: #### C BC ####[facility] Zqyiugyckz[address] [place], [place] [address]Dr. Amina Escobar LYMPH # 0.8 103/ul Critically low 1.2-3.8 [facility] Comment on above: Performed By: #### C BC ####[facility] Vxfdiczrvn5396 [place] [address]Dr. Amina Escobar Lymphocytes/100 WBC (Bld) 15.2 % Critically low 20.5-60.0 [facility] Comment on above: Performed By: #### C BC ####[facility] Iecjccchxg2490 [place] [address]Dr. Amina Escobar MANUAL DIFF REQ NO Normal [facility] Comment on above: Performed By: #### C BC ####[facility] Fjexdspuep7513 [place] [address]Dr. Amina Escobar MCH (RBC) [Entitic mass] 26.6 pg Normal 25.9-34.0 [facility] Comment on above: Performed By: #### C BC ####[facility] Qnzcwzmmep[address] [place], [place] [address]Dr. Amina Escobar MCHC (RBC) [Mass/Vol] 30.4 g/dL Normal 29.9-35.2 [facility] Comment on above: Performed By: #### C BC ####[facility] Gqolxejyxl[address] [place], [place] [address]Dr. Amina Escobar MCV (RBC) [Entitic vol] 87.7 fL Normal 80.0-94.0 [facility] Comment on above: Performed By: #### C BC ####[facility] Broeilgwyv[address] [place], [place] [address]Dr. Amina Escobar MONO # 0.5 103/ul Normal 0.3-0.8 [facility] Comment on above: Performed By: #### C BC ####[facility] Unbutmvyqq[address] [place], [place] [address]Dr. Amina Escobar Monocytes/100 WBC (Bld) 10.0 % Normal 1.7-12.0 [facility] Comment on above: Performed By: #### C BC ####[facility] Rlzjmhikgy[address] [place], [place] [address]Dr. Amina Escobar NEUT # 3.7 103/ul Normal 1.4-6.5 [facility] Comment on above: Performed By: #### C BC ####[facility] Xxiwyriwxo8434 [place] [address]Dr. Amina Escobar Neutrophils/100 WBC (Bld) 70.1 % Normal 43.0-75.0 [facility] Comment on above: Performed By: #### C BC ####[facility] Icxufilfwl2458 [place] [address]Dr. Amina Escobar Platelet mean volume (Bld) [Entitic vol] 10.2 fL Normal 9.5-13.5 [facility] Comment on above: Performed By: #### C BC ####[facility] Iquieiober4831 [place] [address]Dr. Amina Escobar PLT 201 103/ul Normal 150-450 [facility] Comment on above: Performed By: #### C BC ####[facility] Kcxpoukuus0142 [place] [address]Dr. Amina Escobar RBC 3.83 106/ul Critically low 4.70-6.10 [facility] Comment on above: Performed By: #### C BC ####[facility] Moubddpghq4784 [place] [address]Dr. Amina Escobar WBC 5.3 103/ul Normal 4.0-11.0 [facility] Comment on above: Performed By: #### C BC ####[facility] Qzibjejgim1420 [place] [address]Dr. Amina Escobar IRONon 12-23-2021 Iron [Mass/Vol] 60.0 ug/dL Critically low 65.0-175.0 [facility] Comment on above: Performed By: #### I PHIL ####[facility] Ppbrkzwfco5196 [place] [address]Dr. 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 This test has not been FDA cleared [...] is terminated or revoked sooner. PERFORMED BY: [place] [address] PATHOLOGIST DENTAL TECH JAIRO GLYNN M.D. Performed By: #### C OVID 19 [facility] #### [address] CBC COMPLETE BLOOD COUNTon 01-01-2021 Erythrocyte distribution width (RBC) [Ratio] 13.7 % Normal 11.5-15.0 [facility] Comment on above: Order Comment: RUL Performed By: #### 3 0323 #### [facility] [address] [place] [address], [facility] Hematocrit (Bld) [Volume fraction] 37.9 % Low 39.0-50.0 [facility] Comment on above: Order Comment: RUL Performed By: #### 3 0323 #### [facility] [address] [facility] [place] [address], [facility] Hemoglobin (Bld) [Mass/Vol] 12.2 g/dL Low 13.0-17.0 [facility] Comment on above: Order Comment: RUL Performed By: #### 3 0323 #### [facility] [address] [facility] [place] MCH (RBC) [Entitic mass] 28.9 pg Normal 27.0-33.0 [facility] Comment on above: Order Comment: RUL Performed By: #### 3 0323 #### [facility] [address] [place] [address], [facility] MCHC (RBC) [Mass/Vol] 32.2 g/dL Normal 32.0-35.0 [facility] Comment on above: Order Comment: RUL Performed By: #### 3 3 #### [facility] [address] [facility] [place] [address], [facility] MCV (RBC) [Entitic vol] 89.8 fL Normal 82.0-98.0 [facility] Comment on above: Order Comment: RUL Performed By: #### 3 0323 #### [facility] [address] [facility]. [address] Nucleated RBC/100 WBC (Bld) [Ratio] 0 % Normal 0-0 [facility] Comment on above: Order Comment: RUL Performed By: #### 3 0323 #### [facility] [address] [facility] [place] [address], [facility] PLAT CNT 154 10*3/uL Normal 150-400 [facility] Comment on above: Order Comment: RUL Performed By: #### 3 0323 #### [facility] [address] [facility] [place] [address], [facility] RBC (Bld) [#/Vol] 4.22 10*6/uL Normal 4.20-5.70 [facility] Comment on above: Order Comment: RUL Performed By: #### 3 0323 #### [facility] [address] [facility] [place] [address], [facility] WBC (Bld) [#/Vol] 7.48 10*3/uL Normal 4.00-10.60 [facility] Comment on above: Order Comment: RUL Performed By: #### 3 3 #### [facility] [address] [place] [address], [place] COMP METABOLIC PANELon 01-01 Albumin [Mass/Vol] 3.5 g/dL Normal 3.5-5.7 [facility] Comment on above: Order Comment: No: D o not add to previous draw Performed By: #### 1 0, 75525 #### [facility] [address] [place] [address], [place] ALKALINE PHOSPH 97 IU/L Normal 34-104 [facility] Comment on above: Order Comment: No: D o not add to previous draw Performed By: #### 1 69, 52480 #### [facility] [address] [place] [address], [place] ALT [Catalytic activity/Vol] 14 U/L Normal 7-52 [facility] Comment on above: Order Comment: No: D o not add to previous draw Performed By: #### 1 69, 01162 #### [facility] [address] [place] [address], [place] AST [Catalytic activity/Vol] 14 U/L Normal 13-39 [facility] Comment on above: Order Comment: No: D o not add to previous draw Performed By: #### 1 69, #### [facility] [address] [place] [address], [place] Bilirubin [Mass/Vol] 1.0 mg/dL Normal 0.3-1.0 [facility] Comment on above: Order Comment: No: D o not add to previous draw Performed By: #### 1 69, 91969 #### [facility] [address] [place] [address], [place] Calcium [Mass/Vol] 8.8 mg/dL Normal 8.6-10.3 [facility] Comment on above: Order Comment: No: D o not add to previous draw Performed By: #### 1 69, 61241 #### [facility] [address] [place] [address], [place] Chloride [Moles/Vol] 104 mmol/L Normal 98-107 [facility] Comment on above: Order Comment: No: D o not add to previous draw Performed By: #### 1 0, 47105 #### [facility] [address] [place] [address], [place] CO2 [Moles/Vol] 26 mmol/L Normal 21-31 [facility] Comment on above: Order Comment: No: D o not add to previous draw Performed By: #### 1 0, 60895 #### [facility] [address] [place] [address], [place] Creatinine [Mass/Vol] 0.94 mg/dL Normal 0.70-1.30 [facility] Comment on above: Order Comment: No: D o not add to previous draw Performed By: #### 1 0, 60079 #### [facility] [address] [place] [address], [place] GFR/1.73 sq M.predicted among blacks MDRD (S/P/Bld) [Vol rate/Area] mL/min/{1.73_m2} Normal >60 [facility] Comment on above: Order Comment: No: D o not add to previous draw Result Comment: Calc ulation may not be valid for patients over 70 years Performed By: #### 1 0, 97584 #### [facility] [address] [place] [address], [place] GFR/1.73 sq M.predicted among non-blacks MDRD (S/P/Bld) [Vol rate/Area] mL/min/{1.73_m2} Normal >60 [facility] Comment on above: Order Comment: No: D o not add to previous draw Result Comment: Calc ulation may not be valid for patients over 70 years Performed By: #### 1 0070, 74416 #### [facility] [address] [place] [address], [facility] Glucose [Mass/Vol] 107 mg/dL High 70-100 [facility] Comment on above: Order Comment: No: D o not add to previous draw Performed By: #### 1 0, 30857 #### [facility] [address] [place] [address], [place] Potassium [Moles/Vol] 4.0 mmol/L Normal 3.5-5.1 [facility] Comment on above: Order Comment: No: D o not add to previous draw Performed By: #### 1 0, 12235 #### [facility] [address] [place] [address], [place] Protein [Mass/Vol] 6.3 g/dL Normal 6.0-8.3 [facility] Comment on above: Order Comment: No: D o not add to previous draw Performed By: #### 1 69, 77504 #### [facility] [address] [place] [address], [place] Sodium [Moles/Vol] 135 mmol/L Low 136-145 [facility] Comment on above: Order Comment: No: D o not add to previous draw Performed By: #### 1 69, 30755 #### [facility] [address] [place] [address], [place] Urea nitrogen [Mass/Vol] 18 mg/dL Normal 7-25 [facility] Comment on above: Order Comment: No: D o not add to previous draw Performed By: #### 1 69, 21602 #### [facility] [address] [place] [address], [place] MAGNESIUM BLOODon 01-01-2021 Magnesium [Mass/Vol] 1.6 mg/dL Low 1.9-2.7 [facility] Comment on above: Order Comment: No: D o not add to previous draw Performed By: #### 1 69, 31033 #### [facility] [address] [place] [address], [place] Cardiovascular Lab Reporton 12-31-2020 Cardiovascular Lab Report [facility] Patient Name: Juan Barcenas MR #: [id number] [facility] Physician: Sissy Schneider M.D. Department of Service Date: 12/31/2020 Medicine Birthdate: 1935 Division of Room #: 3AB 136977 Cardiology Adult Cardiovascular Services [facility] [address] [facility] [place] [address] Cardiovascular Laboratory Report INDICATION: The patient is [...] femoral vein under ultrasound guidance. INTERVENTIONAL CARDIOLOGY BILINGUAL LOAN PROCESSOR: Sissy Schneider M.D. CARDIOTHORACIC SURGERY BILINGUAL LOAN PROCESSOR: Douglas De La Rosa MD. CARE MANAGEMENT SPECIALIST: Rashad Rajput MD. METHODS: The procedure was explained to the patient with risks and benefits. He signed informed consent. He was brought to labor and employment paralegal in a fasting state. Both groin areas were prepped and draped in usual fashion. The procedure was performed in the labor and employment paralegal under conscious sedation. Using ultrasound guidance, access was obtained in the right and left common femoral arteries and after inner cannula angiography confirmed adequate placement, access was upsized to a 6-Grenadian x 11 cm sheath on both sited. Access was obtained using same technique in the left common femoral vein and a 6-Grenadian x 11 cm sheath was placed. Preclosure in the right common femoral artery was performed using 2 crossing 6-Grenadian ProGlide devices and the access was upsized to a 10-Grenadian x 11 cm sheath. A 6-Grenadian angled pigtail catheter was advanced through the [...] upsized using a Lunderquist wire to the 16-Grenadian Murillo eSheath, which was secured in place. A 6-Grenadian AL1 diagnostic catheter was advanced and using a Glidewire, the aortic valve was crossed and the catheter was then exchanged over wire to a 6-Grenadian angled pigtail catheter, which was used to place an exchange length Amplatz extra stiff wire in the left ventricle. The Murillo Minerva Ultra 29 mm valve was prepped at nominal volume -2 mL and was advanced across the [place] aortic valve and under rapid pacing at [...] P/Sissy Schneider M.D. Date Trans: 12/31/2020 04:01 P/mmo [id number] cc: Tony Burgos M.D. [address] [place] [address], [address] [facility] [id number] Radha Nazario, MSN, PLANNER CHIEF U T M C, D (more content not included)... Normal [facility] Operative Reporton Operative Report MR#: [id number] [facility] Pt. Name: Juan Barcenas Room #: 3AB [id number] Discharge Date: Birthdate: 1935 OPERATIVE REPORT DATE OF SURGERY: 12/31/2020 SURGEON: Douglas De La Rosa MD PREOPERATIVE DIAGNOSES: Severe aortic stenosis. Previous coronary artery bypass grafting. POSTOPERATIVE DIAGNOSES: Severe aortic stenosis. Previous coronary artery bypass grafting. OPERATION: Percutaneous transfemoral transcatheter aortic valve replacement with 29 mm Minerva Ultra valve. CO-SURGEON: Sissy Schneider M.D. FREIGHT BRAKE OPERATOR: Dr. Rajput. ANESTHESIA: MAC. INDICATIONS: This is [...] artery and the sheath was upgraded to 8-Grenadian sheath. Through the left groin sheath, a pigtail catheter was inserted in the ascending aorta. A temporaryp pacemaker was inserted through the left femoral vein and tested for later use. At this time, the patient was heparinized and right femoral arterial sheath was upgraded over Lunderquist wire to a 16-Grenadian sheath. An AL4 catheter inserted in the [...] Rosa MD Date Trans: 12/31/2020 05:02 P/monster [id number] cc: Tony Burgos M.D. [address] [place] [id number] Radha Nazario, MSN, PLANNER CHIEF U T M C, Dept. Of Surgery Mailstop [address] [facility] [address] Normal [facility] TYPE AND SCREENon 12-31-2020 ABO INTERPRETATION O Normal [facility] Comment on above: Performed By: #### 3 1223 #### [facility] [address] [place] [address], [facility] RH INTERPRETATION Positive Normal [facility] Comment on above: Performed By: #### 3 0773 #### [facility] [address] [place] [address], [place] BASIC METABOLIC PANELon 05- Calcium [Mass/Vol] 9.2 mg/dL Normal 8.6-10.3 [facility] Comment on above: Performed By: #### 3 8893 #### [facility] [address] [place] [address], [place] Chloride [Moles/Vol] 106 mmol/L Normal 98-107 [facility] Comment on above: Performed By: #### 3 0323 #### [facility] [address] [place] [address], [place] CO2 [Moles/Vol] 26 mmol/L Normal 21-31 [facility] Comment on above: Performed By: #### 3 0323 #### [facility] [address] [place] [address], [place] Creatinine [Mass/Vol] 1.02 mg/dL Normal 0.70-1.30 [facility] Comment on above: Performed By: #### 3 0323 #### [facility] [address] [place] [address], [place] GFR/1.73 sq M.predicted among blacks MDRD (S/P/Bld) [Vol rate/Area] mL/min/{1.73_m2} Normal >60 [facility] Comment on above: Result Comment: Calc ulation may not be valid for patients over 70 years Performed By: #### 3 0323 #### [facility] [address] [place] [address], [place] GFR/1.73 sq M.predicted among non-blacks MDRD (S/P/Bld) [Vol rate/Area] mL/min/{1.73_m2} Normal >60 [facility] Comment on above: Result Comment: Calc ulation may not be valid for patients over 70 years Performed By: #### 3 0323 #### [facility] [address] [place] [address], [place] Glucose [Mass/Vol] 83 mg/dL Normal 70-100 [facility] Comment on above: Performed By: #### 3 0323 #### [facility] [address] [place] [address], [place] Potassium [Moles/Vol] 4.5 mmol/L Normal 3.5-5.1 [facility] Comment on above: Performed By: #### 3 0323 #### [facility] [address] [facility] Sodium [Moles/Vol] 139 mmol/L Normal 136-145 [facility] Comment on above: Performed By: #### 3 0323 #### [facility] [address] [facility]. [address] Urea nitrogen [Mass/Vol] 22 mg/dL Normal 7-25 [facility] Comment on above: Performed By: #### 3 0323 #### [facility] [address] [facility]. [address] BNP (B-TYPE NATRIURETIC PEPT MANUEL)on 11-19-2020 Natriuretic peptide B (Bld) [Mass/Vol] 168 pg/mL High 0-100 [facility] Comment on above: Result Comment: Give n the appropriate clinical setting a BNP result of >100 pg/mL indicates congestive heart failure. Performed By: #### 8 5123 #### [facility] [address] CBC COMPLETE BLOOD COUNTon 0 11-19-2020 Erythrocyte distribution width (RBC) [Ratio] 14.5 % Normal 11.5-15.0 [facility] Comment on above: Performed By: #### 5 0608 #### [facility] [address] [facility]. [address] Hematocrit (Bld) [Volume fraction] 38.6 % Low 39.0-50.0 [facility] Comment on above: Performed By: #### 5 0608 #### [facility] [address] [facility]. [address] Hemoglobin (Bld) [Mass/Vol] 12.2 g/dL Low 13.0-17.0 [facility] Comment on above: Performed By: #### 5 0608 #### [facility] [address] MCH (RBC) [Entitic mass] 29.0 pg Normal 27.0-33.0 [facility] Center Comment on above: Performed By: #### 5 [id number] #### [facility] [address] MCHC (RBC) [Mass/Vol] 31.6 g/dL Low 32.0-35.0 [facility] Comment on above: Performed By: #### 5 0608 #### [facility] [address] MCV (RBC) [Entitic vol] 91.7 fL Normal 82.0-98.0 [facility] Comment on above: Performed By: #### 5 0608 #### [facility] [address] Nucleated RBC/100 WBC (Bld) [Ratio] 0 % Normal 0-0 [facility] Comment on above: Performed By: #### 5 0608 #### [facility] [address] PLAT CNT 265 10*3/uL Normal 150-400 [facility] Comment on above: Performed By: #### 5 0608 #### [facility] [address] RBC (Bld) [#/Vol] 4.21 10*6/uL Normal 4.20-5.70 [facility] Comment on above: Performed By: #### 5 0608 #### [facility] [address] [place] [address], [facility] WBC (Bld) [#/Vol] 6.97 10*3/uL Normal 4.00-10.60 [facility] Comment on above: Performed By: #### 5 0608 #### [address] [place], [place] [address] CHEST AND LATERALon 11-20-19 CHEST AND LATERAL [facility] Department of Radiology [address] [place] [id number] Patient Name: JUAN BARCENAS : 1935 Sex: M Age: Race: White Pt. Location: 30 Patient Status: O Ordered Date: 11/18/2020 4:20:00 PM Completed Date: 11/19/2020 11:30 AM Requesting Provider: SISSY SCHNEIDER V Attending Provider: SISSY SCHNEIDER V Report Copy To: TONY BURGOS Signs & Symptoms: Z95.0 Presence of cardiac pacemaker I10 History: [place] Comments: , PA and lateral Exam: CHEST [...] abnormalities Electronically signed: Mandeep Alvarado. Transcribed by: [email or web address], User Resident: Electronically Signed by: MANDEEP ALVARADO @ 11/19/2020 02:46 PM Normal [facility] Comment on above: Order Comment: , PA and lateral PROCALCITONINon 11-19-2020 PROCALCITONIN 0.05 ng/mL Normal 0.00-0.10 [facility] Comment on above: Result Comment: Susp ected [...] PCT<0.5ng/mL Performed By: #### 3 1488 #### [place] [address] [place] [address], [facility] *AFB CULTUREon 11-05-2020 *AFB CULTURE Clinical Report: (D) Specimen/Source: TISSUE/LUNG BIOPSY Collected: 11/05/2020 15:40 Status: Final Last Updated: 12/18/2020 14:00 (1) RUL AFB (Final) No Acid Fast Bacilli Seen CULT RES (Final) No growth after 42 days of incubation Normal [facility] Comment on above: Order Comment: RUL Performed By: #### 3 0832 #### [address] *FUNGAL CULTUREon 11-05-2020 *FUNGAL CULTURE Clinical Report: (D) Specimen/Source: TISSUE/LUNG BIOPSY Collected: 11/05/2020 15:40 Status: Final Last Updated: 12/10/2020 08:21 (1) RUL FS (Final) No Yeast or Fungal Elements Seen CULT RES (Final) Culture negative for fungus Normal [facility] Comment on above: Order Comment: RUL Performed By: #### 3 0323 #### [address] *TISSUE CULTUREon 11-05-2020 *TISSUE CULTURE Clinical Report: (D) Specimen/Source: TISSUE/LUNG BIOPSY Collected: 11/05/2020 15:40 Status: Final Last Updated: 11/10/2020 10:46 (1) RUL GRAM (Final) No Polys Seen Rare Gram Positive Cocci In Chains CULT RES (Final) No Growth Day 5 Normal [facility] Comment on above: Order Comment: RUL Performed By: #### 5 0608 #### [address] FLUORO FOR BRONCHOSCOPYon FLUORO FOR BRONCHOSCOPY [facility] Department of Radiology [address] [place] [phone] Patient Name: JUAN BARCENAS : 1935 [...] fluoroscopic images were provided. Electronically signed: Milvia Rosales. Transcribed by: [email or web address], User Resident: Electronically Signed by: MILVIA ROSALES @ 11/06/2020 11:17 AM Normal [facility] Comment on above: Order Comment: SANTINO Operative Reporton Operative Report MR#: [id number] [facility] Pt. Name: Juan Barcenas Room #: 0C Discharge Date: Birthdate: 1935 OPERATIVE REPORT DATE OF SURGERY: 11/05/2020 SURGEON: Nicole Guerrero MD EBUS-TBNA, fluoroscopic guided transbronchial biopsies and BAL procedure note Patient: Juan Barcenas Date: 11/05/2020 Indication: Diagnostic/therapeutic bronchoscopy Procedure Coil Machine Supervisor: Shelbi Garrido MD Supervising Attending: Nicole Guerrero [...] Garrido MD Date Trans: 11/05/2020 04:12 P/ [id number] cc: Tony Burgos M.D. [address] [place] [address] A [facility] [phone] Normal [facility] POC GLUCOSE LABon 11-05-2020 Glucose [Mass/Vol] 90 mg/dL Normal 70-100 [facility] Comment on above: Performed By: #### 3 0323 #### [facility] [address] [place] [id number] POC SARS COV2 ANTIGEN NEGATI VEon 11-05-2020 POC SARS COV2 ANTIGEN NEG Negative Normal NEGATIVE [facility] Comment on above: Result Comment: Nega tive [...] signs and symptoms consistent with COVID-19. The [facility] COVID-19 Antigen test is a lateral flow [...] Accreditation. Performed By: #### 3 1944 #### [place] [address], [facility] PORTABLE CHEST 1 VIEWon 10-11 PORTABLE CHEST 1 VIEW [facility] Department of Radiology [address] [place] [phone] Patient Name: JUAN BARCENAS : 1935 Sex: M Age: Race: White Pt. Location: OUTP Patient Status: O Ordered Date: 11/05/2020 4:00:00 [...] pneumothorax. Electronically signed: Gilberto Payton. Transcribed by: [email or web address], User Resident: Electronically Signed by: GILBERTO PAYTON @ 11/05/2020 05:34 PM Normal [facility] Comment on above: Order Comment: evalu ate for Pneumothorax *AFB CULTUREon 10-29-2020 *AFB CULTURE Clinical Report: (D) Specimen/Source: RESPIRATORY/BRONCHEAL ALVEOLAR LAVAGE Collected: 10/29/2020 15:35 Status: Final Last Updated: 12/18/2020 14:00 (1) RUL BAL AFB (Final) No Acid Fast Bacilli Seen CULT RES (Final) No growth after 42 days of incubation Normal [facility] Comment on above: Order Comment: RUL B AL Performed By: #### 5 0608 #### [address] *FUNGAL CULTUREon 10-29-2020 *FUNGAL CULTURE Clinical Report: (D) Specimen/Source: RESPIRATORY/BRONCHEAL ALVEOLAR LAVAGE Collected: 10/29/2020 15:35 Status: Final Last Updated: 11/12/2020 14:16 (1) RUL BAL FS (Final) No Yeast or Fungal Elements Seen ISO (Final) Radha albicans Presumptive Normal [facility] Comment on above: Order Comment: RUL B AL Performed By: #### 5 0608 #### [address] *RESPIRATORY CULTUREon 10-29 *RESPIRATORY CULTURE Clinical Report: (D ) Specimen/Source: RESPIRATORY/BRONCHEAL ALVEOLAR LAVAGE Collected: 10/29/2020 15:35 Status: Final Last Updated: 11/09/2020 06:44 (1) RUL BAL GRAM (Final) Few Polys Rare Ciliated Columnar Epithelial Cells No Bacteria Seen CYTOSPUN (Final) This Gram Stain was done on a cytocentrifuged specimen ISO (Final) Colonies Consistent with Upper Respiratory Nerissa >10,000 Cfu/mL Normal [facility] Comment on above: Order Comment: RUL Performed By: #### 3 0323 #### [address] [address], [facility] CTA ABDOMEN AND PELVISon CTA ABDOMEN AND PELVIS [facility] Department of Radiology [address] [place] [address] Patient Name: JUAN BARCENAS : 1935 Sex: M Age: Race: White Pt. Location: 30 Patient Status: D Ordered Date: 10/15/2020 10:55:00 AM Completed Date: 10/22/2020 02:56 PM Requesting Provider: SISSY SCHNEIDER V Attending Provider: SISSY SCHNEIDER V Report Copy To: TONY BURGOS Signs & Symptoms: I35.0 Nonrheumatic aortic (valve) stenosis I10 History: [place] [address] cta abdomen pelvis / I35.0 med nec [...] achievable Electronically signed: Dav Lopez. Transcribed by: [email or web address], User Resident: Electronically Signed by: DAV LOPEZ @ 10/24/2020 09:06 AM Normal [facility] Comment on above: Order Comment: (TAVR ) Protocol CTA CHESTon 10-22-2020 CTA CHEST [facility] Department of Radiology [address] [place] [phone] Patient Name: JUAN BARCENAS : 1935 Sex: M Age: Race: White Pt. Location: 30 Patient Status: D Ordered Date: 10/15/2020 10:55:00 AM Completed Date: 10/22/2020 02:56 PM Requesting Provider: SISSY SCHNEIDER V Attending Provider: SISSY SCHNEIDER V Report Copy To: TONY BURGOS Signs & Symptoms: I35.0 Nonrheumatic aortic (valve) stenosis I10 History: [place] medicare [place] pc required cta chest 66581/I35.0 med nec passed *kw Comments: EKG gated-TAVR [...] 3 cusped view, anterior view and no LUNCHROOM OPERATOR-CAU view are obtained in 3-D. The annulus [...] place. Electronically signed: Dav Lopez. Transcribed by: [email or web address], User Resident: Electronically Signed by: DAV LOPEZ @ 10/24/ (more content not included)... Normal [facility] Comment on above: Order Comment: EKG g ated-TAVR protocol Cardiovascular Lab Reporton 10-18-2020 Cardiovascular Lab Report [facility] Patient Name: Juan Barcenas MR #: [id number] [facility] Physician: Sissy Schneider M.D. Department of Service Date: 10/17/2020 Medicine Birthdate: 1935 Division of Room #: CC Cardiology Adult Cardiovascular Services [facility] 3000 [facility]. [place] [address] Cardiovascular Laboratory Report INDICATION: The patient is an 85-year-old man with history of severe aortic valve stenosis. He has prior history of bypass surgery in the past. He recently was admitted to the [facility] with decompensated heart failure and pneumonia. He was evaluated in Cardiology Clinic and was referred for cardiac catheterization in preparation for transcatheter aortic valve replacement. PROCEDURES: 1. Right heart catheterization. 2. Bilateral selective coronary angiography. 3. Graft angiography. 4. Limited right common femoral angiography. METHODS: Procedure was explained to the patient with risks and benefits. He signed consent. He was brought to labor and employment paralegal in a fasting state. The right groin area was prepped and draped in usual fashion. Using micropuncture technique, the right common femoral artery was accessed. The inner cannula was advanced. Limited right common femoral angiography was performed followed by upsizing to a 5-Grenadian x 11 cm sheath. Access was also obtained in the same technique using the micropuncture technique in the right common femoral vein and a 6-Grenadian x 11 cm sheath was placed. A 6-Grenadian Hart catheter was used for right catheterization with measurement of pressures and calculation of cardiac output using the estimated [place] method. Bilateral selective coronary angiography was then performed using 5-Grenadian JL4 and JR4 diagnostic catheters. The 5-Grenadian JR4 diagnostic catheter was used to selectively [...] opacification. The catheter was then removed. A 5-Grenadian MIESHA diagnostic catheter was used to selectively [...] grafts. 3. Moderately elevated filling pressures. 4. Mqtk-ph-nwmzpvbq pulmonary hypertension. 5. Mildly reduced cardiac output and cardiac index. RECOMMENDATIONS: 1. Continue current medical therapy. 2. The patient will continue to be evaluated for transcatheter aortic valve replacement. Electronically Signed by: Sissy Schneider M.D. 10/20/2020 05:02 P Sissy Schneider M.D. Date Dict: 10/17/2020/03:26 P/Sissy Schneider M.D. Date Trans: 10/18/2020 04:41 A/monster [id number] cc: Tony Burgos M.D. [address] [place] [address] A [facility] [phone] [facility] Vital Signs Date Time Vital Sign Value Performing Clinician Reynaldo maharaj 11-04-2021 14:41-0400 Blood Pressure Location ULURU [facility] 11-04-2021 14:41-0400 Diastolic blood pressure 76 mm[Hg] Cord ProjectL [facility] 11-04-2021 14:41-0400 Heart rate 68 /min Cord [facility] 11-04-2021 14:41-0400 Respiratory rate 16 /min Cord ProjectL [facility] [place] 11-04-2021 14:41-0400 Systolic blood pressure 144 mm[Hg] Cord [facility] Encounters Encounter Date Encounter Type Care Provider Facility Start: 04-17-2024 End: 04-17-2024 ambulatory JAMES Bowman Facility:[facility] Start: 10-26-2023 End: 10-26-2023 ambulatory [facility] Start: 10-19-2023 End: 10-19-20[facility]: 09-29-2023 End: 09-29-2023 ambulatory DIRECTOR PHARMACOLOGY Isabela Bowman Facility:[facility] Start: 05-14-2023 End: 05-14-2023 ambulatory SHANTAL [facility] Start: 05-07-2023 End: 05-07-2023 ambulatory [facility] Start: 12-04-2022 End: 12-05-[address] TONY BURGOS . Facility:[facility] Start: 10-01-2022 End: 10-02-[address] TONY BURGOS . Facility:[facility] Start: 09-24-2022 End: 09-25-[address] TONY BURGOS . Facility:[facility] Start: 08-17-2022 Encounter for other preprocedural examination [facility] Start: 08-12-2022 End: 08-13-[address] TONY BURGOS . Facility:[facility] Start: 08-12-2022 End: 08-13-2022 Encounter for other preprocedural examination DR TONY BURGOS . Facility:[facility] Start: 07-27-2022 End: 07-28-[address] TONY BURGOS . Facility:[facility] Start: 07-15-2022 End: 07-16-[address] TONY BURGOS . Facility:[facility] Start: 07-08-2022 End: 07-08-[address] TONY BURGOS . Facility:[facility] Start: 07-06-2022 End: 07-07-2022 ambulatory [...] management of inpatient DR TONY BURGOS . Facility:[facility] Start: 04-10-2022 End: 04-11-[address] TONY BURGOS . Facility:[facility] Start: 04-03-[address] TONY BURGOS . Facil ity:[facility] Start: 03-06-[address] TONY BURGOS . Facil ity:[facility] Start: 02-16-2022 End: 02-17-[address] TONY BURGOS . Facility:[facility] Start: 02-11-2022 End: 02-12-[address] TONY BURGOS . Facility:[facility] Start: 01-06-2022 End: 01-07-[address] TONY BURGOS . Facility:[facility] Start: 12-23-2021 End: 12-24-[address] TONY BURGOS . Facility:[facility] Start: 11-04-2021 End: 11-04-2021 Patient encounter procedure Shelbi ABRAHAM [facility] Start: 12-31-2020 End: 01-01-2021 Evaluation and management of inpatient RADHA NAZARIO Facility:[facility] Start: 11-05-2020 End: 11-06-2020 ambulatory [facility] Facility:[facility] Start: 10-17-2020 End: 10-18-2020 ambulatory TONY BURGOS Facility:[facility] Procedures Date Procedure Procedure Detail Performing Clinician [...] IGHT AND LEFT HEART, TRANSESOPHAGEAL EHAB A MATTHEWTAHAWY Start: 12-31-2020 Antibody screen TONY CONNOR Comment on above: Performed By: #### 3 0323 #### [facility] [address] Start: 12-31-2020 FLUOROSCOPY OF THORA CIC AORTA USING LOW OSMOLAR CONTRAST DOUGLAS MASHUBERT Start: 12-31-2020 REPLACEMENT OF AORTI C VALVE WITH ZOOPLASTIC, PERC APPROACH DOUGLAS MASROJENNIFER Start: 12-10-2020 Replacement of aortic valve Shelbi ABRAHAM Start: 11-05-2020 ANESTH CHEST PROCEDURE TONY BURGOS Start: 11-05-2020 BRONCH EBUS SAMPLNG 3/> NODE NICOLE GUERRERO Start: 10-10-2020 Biopsy of lung Shelbi ABRAHAM Start: 10-10-2020 Bronchoscopy Shelbi JEAN Start: 07-12-2013 Cardiac pacemaker, d evice (physical object) Shelbi ABRAHAM Start: 07-12-1997 Coronary artery bypa ss grafts x 3 Shelbi ABRAHAM Start: 07-12-1992 Repair of right ingu inal hernia Shelbi ABRAHAM Start: 07-12-1980 Repair of left ingui nal hernia Shelbi ABRAHAM Cardioversion Shelbi ABRAHAM Plan of Treatment Date Care Activity Detail Author Start: 09-11-2024 ambulatory Ambulatory Facility:[facility] Payers Date Payer Category Payer Medicare [id number] 1957 Self-pay [id number] 1959 Unknown [id number] 1935 Unknown [id number] 2.16.8 40.1.532991.3.579.2.647 1935 Unknown [id number] 2.16.8 40.1.952322.3.579.2.647 1935 Unknown [id number] 2.16.8 40.1.870440.3.579.2.647 1935 Unknown [id number] 2.16.84 0.1.974667.3.579.2.593 1935 Unknown [id number] 2.16.84 0.1.943833.3.579.2.593 1935 Unknown [id number] 2.16.84 0.1.850746.3.579.2.593 1935 Unknown [id number] 2.16.84 0.1.543520.3.579.2.593 1935 Unknown [id number] 2.16.84 0.1.463975.3.579.2.593 1935 Unknown [id number] 2.16.84 0.1.285482.3.579.2.593 1937 Unknown [id number] 2.16.84 0.1.235346.3.579.2.593 1935 Unknown [id number] 2.16.84 0.1.318720.3.579.2.593 1937 Unknown [id number] 2.16.84 0.1.627739.3.579.2.593 1937 Unknown [id number] 2.16.84 0.1.061201.3.579.2.593 1937 Unknown [id number] 2.16.84 0.1.780379.3.579.2.593 1935 Unknown [id number] 2.16.84 0.1.597996.3.579.2.593 1935 Unknown [id number] 2.16.84 0.1.688857.3.579.2.593 1937 Unknown [id number] 2.16.84 0.1.081627.3.579.2.593 1935 Unknown [id number] 2.16.84 0.1.423517.3.579.2.593 1937 Unknown [id number] 2.16.84 0.1.680163.3.579.2.593 1937 Unknown [id number] 2.16.84 0.1.619509.3.579.2.593 1937 Unknown [id number] 2.16.84 0.1.831151.3.579.2.593 1937 Unknown [id number] 2.16.84 0.1.137367.3.579.2.593 1937 Unknown [id number] 2.16.84 0.1.371336.3.579.2.593 1937 Unknown [id number] 2.16.84 0.1.715979.3.579.2.593 1937 Unknown [id number] 2.16.84 0.1.294814.3.579.2.593 1937 Unknown [id number] 2.16.84 0.1.853519.3.579.2.593 1937 Unknown [id number] 2.16.84 0.1.949362.3.579.2.593 1937 Unknown [id number] 2.16.84 0.1.684414.3.579.2.593 1937 Unknown [id number] 2.16.84 0.1.649153.3.579.2.593 1937 Unknown [id number] 2.16.84 0.1.817099.3.579.2.593 1937 Unknown [id number] 2.16.84 0.1.593219.3.579.2.593 1937 Unknown [id number] 2.16.84 0.1.934206.3.579.2.593 1937 Unknown [id number] 2.16.84 0.1.974020.3.579.2.593 1937 Unknown [id number] 2.16.84 0.1.863219.3.579.2.593 1937 Unknown [id number] 2.16.84 0.1.724364.3.579.2.593 1937 Unknown [id number] 2.16.84 0.1.358897.3.579.2.593 1935 Unknown [id number] 2.16.8 40.1.189587.3.579.2.727 1935 Unknown [id number] 2.16.8 40.1.837724.3.579.2.727 1935 Unknown [id number] 2.16.8 40.1.243794.3.579.2.727 Social History Date Type Detail Facility Start: 11-04-2021 Tobacco smoking status Ex-smoker (fi nding) [facility] Tobacco smoking status Never Gener [facility] Sex Assigned At Male Genera [facility] Progress note 10-19-2023 Note Date & Type [...] All other systems reviewed and are negative. [facility] Progress note 10-19-2023 Note Date & Type Note Facility 10-19-2023 Note [facility] SUBJECTIVE No chief complaint on file. Juan Barcenas is a 88 y.o. male here for follow-up. His daughter accompanied him today. 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 His blood pressure readings are elevated and he is currently on Coreg 18.75mg bid, Cozaar 100 once daily, Norvasc 10 mg once daily. on this his blood pressure readings somewhat markedly elevated in the 160-180 range at 8 AM to 9 AM readings in the afternoon readings are usually in the 130-150 range. he feels good after the NATURAL GAS SHOTHOLE DRILLER upgrade. He had reduced EF in 02/11/2022 [...] other occasions he was noted to have [place] conduction. 1 so that showed (90 range Patient Active Problem List Diagnosis Aortic valve disorder Aortic valve stenosis Presence of cardiac resynchronization therapy pacemaker (NATURAL GAS SHOTHOLE DRILLER-P) Pacing-induced cardiomyopathy (CMS/HCC) Coronary arteriosclerosis Dizziness and giddiness Dyspnea Essential hypertension Hyperlipidemia Joint pain Local infection of skin and subcutaneous tissue Pulmonary emphysema (CMS/HCC) Paroxysmal atrial fibrillation (CMS/HCC) Syncope and collapse Atrial flutter (CMS/HCC) Acute diastolic heart failure (CMS/HCC) Adenomatous polyp of colon Anemia Iron deficiency anemia prison current use of anticoagulant therapy Overweight with body mass index (BMI) 25.0-29.9 Polymyalgia rheumatica (CMS/HCC) Stage 3 chronic kidney disease (CMS/HCC) CHF (congestive heart failure) (CMS/HCC) GI (gastrointestinal bleed) NSVT (nonsustained ventricular tachycardia) (CMS/HCC) Stenosis of left carotid artery Pure hypercholesterolemia Past Medical History: Diagnosis Date Arthritis Atrial fibrillation (CMS/HCC) CHF (congestive heart failure) ([facility]/HCC) Coronary artery disease GI (gastrointestinal bleed) HL [...] 200 mg table (more content not included)... [facility] Progress note 05-14-2023 Note Date & Type Note Facility 05-14-2023 Note [facility] Consul t Note Reason for Consultation: follow up s/p BiV/NATURAL GAS SHOTHOLE DRILLER-P upgrade 05/14/23: Here for follow up Has [...] here for follow s/p BiV upgrade for NATURAL GAS SHOTHOLE DRILLER-P. His blood pressure readings are elevated and he is currently on Coreg 18.75mg bid, Cozaar 100 once daily, Norvasc 10 mg once daily. on this his blood pressure readings somewhat markedly elevated in the 160-180 range at 8 AM to 9 AM readings in the afternoon readings are usually in the 130-150 range. he feels good after the NATURAL GAS SHOTHOLE DRILLER upgrade. He had reduced EF in 02/11/2022 [...] other occasions he was noted to have [place] conduction. 1 so that showed (90 range [...] at bedtime. No (more content not included)... [facility] Clinical Note 04-25-2022 Note Date & Type Note Facility 04-25-2022 Note [facility] Discharge summary note 01-02-2021 Note Date & Type Note Facility 01-02-2021 Note MR#: [id number] I [facility] Pt. Name: Juan Barcenas Admitted: 12/31/2020 Discharged: [...] severe symptomatic aortic stenosis. He presented to [facility] on 12/31/2020 for planned transcatheter aortic valve [...] personal documentation from me. Date Dict: 01/01/2021/07:04 P/Nicole Dallas MD Date Trans: 01/02/2021 08:39 A/andrewo DN_JN:[id number] cc: Tony Burgos M.D. [address] [place] [address] A [facility] [address] Sissy Schneider M.D. Heart Failure/ Transplant Mailstop 1113 [facility] [address] Radha Nazario, MSN, PL[employer]NER [employer] [facility], Dept. Of Surgery Mailstop [phone] [facility] [address] [facility] Evaluation + Plan note Note Date & Type Note Facility Evaluation + Plan note No data available for this section [facility] Discharge instructions Note Date & Type Note Facility Hospital Discharge instructions No data available for this section [facility] Summary Purpose Family History No Family History [...] and content) DATE CREATED AUTHOR 09/20/2021 [facility] DATE CREATED AUTHOR AUTHOR'S ORGANIZ ATION 12/17/2021 [facility] DATE CREATED AUTHOR AUTHOR'S ORGANIZ ATION 12/18/2022 [facility] DATE CREATED AUTHOR AUTHOR'S ORGANIZ ATION 11/27/2023 [facility] DATE CREATED AUTHOR AUTHOR'S ORGANIZ ATION 04/18/[address] [facility] FOR RECORDS PERTAINING TO PATIENTS WHO [...] BE BASED ON THE PRIMARY CLINICAL RECORDS. [facility]. provides no warranty or guarantee of the accuracy or completeness of information in this document.
[2024-04-21 12:21] LABS: Basophils Absolute Auto 0.1 10^3/uL (0.0-0.1); Basophils Percent Auto 0.9 % (0.2-2.0); Eosinophils Absolute Auto 0.3 10^3/uL (0.0-0.7); Eosinophils Percent Auto 3.7 % (0.9-7.0); Hematocrit 39.1 % (42.0-54.0); Hemoglobin 12.5 g/dL (14.0-18.0); Immature Granulocytes Abs Auto 0.04 10^3/uL (0.00-0.03); Immature Granulocytes Pct Auto 0.5 % (0.0-0.5); Lymphocytes Absolute Auto 1.2 10^3/uL (1.2-3.8); Lymphocytes Percent Auto 13.9 % (20.5-60.0); Mean Corpuscular Hemoglobin 30.4 pg (25.9-34.0); Mean Corpuscular Volume 95.1 fL (80.0-94.0); Mean Platelet Volume 10.7 fL (9.5-13.5); Monocytes Absolute Auto 0.7 10^3/uL (0.3-0.8); Monocytes Percent Auto 7.9 % (1.7-12.0); Neutrophils Absolute Auto 6.3 10^3/uL (1.4-6.5); Neutrophils Percent Auto 73.1 % (43.0-75.0); Platelet Count 189 10^3/uL (150-450); Red Blood Count 4.11 10^6/uL (4.70-6.10); Red Cell Distribution Width 14.4 % (11.0-15.0); White Blood Count 8.7 10^3/uL (4.0-11.0)
[2024-04-21 13:09] LABS: Alanine Aminotransferase 21 U/L (16-63); Albumin Globulin Ratio 0.9; Albumin Level 3.8 g/dL (3.4-5.0); Alkaline Phosphatase 197 U/L (46-116); Anion Gap 13.6; Aspartate Amino Transferase 13 U/L (15-37); Bilirubin Total 0.6 mg/dL (0.2-1.0); Calcium 9.2 mg/dL (8.5-10.1); Carbon Dioxide 24.2 mmol/L (21.0-32.0); Chloride 107 mmol/L (98-107); Chol HDL Ratio 3.6; Cholesterol 191 mg/dL (<=200); Estimated GFR (African America 40 (>=60 mL/min/1.73m^2); Estimated GFR (Non-African Ame 33 (>=60 mL/min/1.73m^2); Glucose 103 mg/dL (74-106); HDL Cholesterol 53 mg/dL (40-60); LDL Cholesterol Calculated 121.4 mg/dL; Potassium 4.8 mmol/L (3.5-5.1); Sodium 140 mmol/L (136-145); Total Protein 7.8 g/dL (6.4-8.2); Triglycerides 83 mg/dL (<=150); VLDL CHOLESTEROL 16.6 mg/dL
== END 2024-04-21 12:12 | disposition home or self-care (01) ==
LOC: LAB 12:12
PROVIDERS: PCP Family Medicine; Visit Provider Nurse Practitioner
DX: E78.5 Hyperlipidemia, unspecified (principal); N18.9 Chronic kidney disease, unspecified; R06.02 Shortness of breath; I12.9 Hypertensive chronic kidney disease with stage 1 through stage 4 chronic kidney disease, or unspecified chronic kidney disease
CPT/HCPCS: 36415; 80053; 80061; 85025

== ENCOUNTER 2024-09-06 09:30 | Outpatient (OUT) | payer MEDICARE, SELFPAY ==
--- OUTSIDE RECORDS SUMMARY | 2024-09-06 09:40 | XMS_ITS | CCD ---
Author Organization [facility] Care Team Providers Care Ranch Helper Name Role Phone TONY BURGOS Primary Care Unavailable TONY BURGOS Referring Unavailable UNKNOWN, PROVIDER Admitting Unavailable UNKNOWN, PROVIDER Attending Unavailable RADHA NAZARIO Referring Unavailable TONY BURGOS Primary Care Unavailable UNKNOWN, PROVIDER Attending Unavailable UNKNOWN, PROVIDER Admitting Unavailable DOUGLAS DE LA ROSA Surgeon Unavailable [place] Procedure Practitioner Unavailab le SC Procedure Practitioner Unavailab GREGORIO LevyAB A Surgeon Unavailable [place] Procedure Practitioner Unavailab TONY Hsu Referring Unavailable TONY BURGOS Primary Care Unavailable NCIOLE GUERRERO Admitting Unavailable NICOLE GUERRERO Attending Unavailable NICOLE GUERRERO Surgeon Unavailable TONY BURGOS Primary Care Physician BURGOS ., DR TONY Latham Primary Care Unavailable OLIVIA BARAJAS Attending Unavailable OLIVIA BARAJAS Admitting Unavailable BURGOS ., DR TONY Latham [...] TONY Latham Admitting Unavailable BURGOS ., DR TOYN Latham Attending Unavailable BURGOS ., DR TONY [...] BURGOS ., DR TONY Latham Admitting Unavailable [place], DR JUSTIN Mcneill Consulting Unavailable ALBERTO VIZCAINO [...] Attending Unavailable SHAIKH Shlomo ROCHA Admitting Unavailable Nesha Valencia Attending Unavailable Gracie, JAMES Matute Attending Unavailable Gracie, JAMES Matute Attending Unavailable ROBIN MCDONALD Referring Unavailable ROBIN MCDONALD Referring Unavailable OLIVIA BARAJAS Attending Unavailable OLIVIA BARAJAS Attending Unavailable Allergies Allergy Classification Reported Allergen(s) Allergy Type Date of Onset Reaction(s) Facility (1 source) No Known Medication Allergies; Translations: [No Known Medication Allergies] Propensity to adverse reactions (disorder) [facility] Repository Medications Current Medications Medication Drug [...] OT SITE] Onset: 05-05-2022 Chronic Cardiac dysrhythmias (7 sources) Atrial fibrillation with rapid ventricular response; [...] Onset: 2022 Chronic Congestive heart failure; nonhypertensive (10 sources) Acute diastolic heart failure; Translations: [Diastolic heart failure] Onset: 02-18-2022 10-27-2021 Chronic Coronary atherosclerosis and other heart disease (1 source) 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; Translations: [ASHD [place] CA W/O ANGINA PECTORIS] Onset: 2022 Chronic Deficiency and other anemia (5 sources) Iron deficiency anemia secondary to blood loss (chronic); Translations: [IRON DEFIC ANEMIA SEC BLD LOSS CHRN] Onset: 06-01-2022 Chronic Deficiency and other anemia (2 sources) Iron deficiency anemia; Translations: [Iron deficiency anemia, unspecified] Onset: 11-04-2021 Episodic Deficiency and other anemia (1 source) Anemia 10-27-2021 Episodic Disorders of lipid metabolism (5 sources) Pure hypercholesterolemia; Translations: [Pure hypercholesterolemia, unspecified] Onset: 03-04-2022 10-27-2021 Chronic Essential hypertension (2 sources) Hypertensive disorder; Translations: [Essential (primary) hypertension] Onset: 05-05-2022 10-27-2021 Chronic Heart valve disorders (1 source) Rheumatic disorders of both mitral and tricuspid valves; Translations: [RHEUMATIC D/O MITRAL TRICUSPID VALV] Onset: 12-07-2022 Chronic Hypertension with complications and secondary hypertension [...] sources) Long-term current use of anticoagulant; Translations: [senior living (current) use of anticoagulants] Onset: 11-04-2021 Episodic Other connective tissue disease (1 source) Polymyalgia rheumatica 10-27-2021 Chronic Other nutritional; endocrine; and metabolic disorders (1 source) Body mass index 25-29 - overweight 11-04-2021 Episodic Peripheral and visceral atherosclerosis (1 source) Arteriosclerotic [...] cytological and histological examination of urine; Translations: [OT ABN FIND CYTLG HISTLG EXM URINE] Onset: [...] 2 Episodic Other aftercare (1 source) Other termite exterminator (current) drug therapy; Translations: [OT BILINGUAL CASE MANAGER CURRENT DRUG THERAPY] Onset: 3 Episodic Other aftercare (1 source) senior living (current) use of anticoagulants; Translations: [BILINGUAL CASE MANAGER CURRNT USE ANTICOAGULANTS] Onset: 2 Episodic Other aftercare (4 sources) Encounter for therapeutic drug level monitoring; Translations: [ENC THERAPEUTC DRUG LEVL MONITORING] Onset: 2 Episodic Other aftercare (1 source) senior living (current) use of aspirin; Translations: [BILINGUAL CASE MANAGER CURRENT USE OF ASPIRIN] Onset: 2 Episodic [...] Test Name Value Interpretation Reference Range Facility 37on 05-30-2024 37 *Hold furosemide for 2 days then resume at 40mg daily. *Get lab work done in 1-2 weeks. *We will increase atorvastatin to 40mg daily to better help cholesterol levels. I sent a new prescription of 40mg tablets to the pharmacy. -Will need follow-up cholesterol level/liver function in 3 months *Talk about the WATCHMAN device with family Normal [facility] Office Visiton 05-30-2024 Follow-up visit [id number] Juan Barcenas 1935 M Date Provider Department Center 05/30/2024 OLIVIA ALBERTS KEKE [facility] Family History Problem Relation Age of Onset Stroke Mother Other Father Family Status - Relation Status Age at Mother Father Level of Service:85526 [place] OFFICE/OUTPATIENT ESTABLISHED MOD MDM 30 MIN Reason for Visit and Comments: Coronary Artery Disease [187] Congestive Heart Failure [127] Valve Disorder [3372] Normal [facility] 36on 05-04-2024 36 Concerning chest x r ay ----- Message ----- From: Olivia Barajas NP Sent: 05/01/2024 3:57 PM EDT To: Francheska Retana MA Subject: RE: Edit CXR looks ok, no changes Gave his daughter the message Normal [facility] Ambulatory Visit Summaryon 1 Ambulatory Visit Summary Ambulatory Visit Summary JUAN BARCENAS :1935 Visit Date:04/17/2024 Ambulatory Visit Instructions Your [...] Follow-Up Appointments Wednesday 11:00 AM EST Where: [place] [id number]- Medications What How Much When Instructions Unchanged [...] for choosing us for your care. Normal [facility] Office/Clini c Noteon 04-17-2024 Family [...] 6 month follow up. is going to [facility] after this appointment for labs that were [...] unspecified) CMP ordered. will have done at [facility] 3. Diastolic CHF (I50.30: Unspecified diastolic (congestive) heart failure) follow up with cardiology at end of month. is going to [facility] for labs and chest x ray today [...] 12/01/2015 Recorded pneumococcal 13-valent vaccine 12/01/2015 Recorded Normal [facility] Comment on above: Result Comment: Elec tronically Signed By: Isabela Shields\.br\Date and Time Signed: 04/17/24 13:43 EDT Consultation Noteon 12-01-19 24 Consultation Note [id number]#[id number] [facility] 36on 11-24-[address] [facility] Echocardiographyon Echocardiography [id number] [facility] Office Visiton 10-19-2023 Follow-up visit [id number] Juan Barcenas 1935 M Date Provider Department Center 10/19/2023 Roxana-OLIVIA BARAJAS CARD [facility] Family History Problem Relation Age of Onset Stroke Mother Other Father Family Status - Relation Status Age at Mother Father Level of Service:11661 [place] OFFICE/OUTPATIENT ESTABLISHED MOD MDM 30 MIN Reason for Visit and Comments: Atrial Fibrillation [80] Congestive Heart Failure [127] Normal [facility] Ambulatory Visit Summaryon 0 09-29-2023 Ambulatory Visit [...] Follow-Up Appointments Wednesday 11:00 AM EST Where: [facility] [place] Normal [facility] Family Medicine Office/Clini c Noteon 09-29-2023 [...] of clutter to prevent tripping and/or falling. [place] Advance Directives reviewed, patient has at home, [...] labs completed in fall, request sent to [facility]. Colonoscopy, aged out. Reviewed pain symptoms with [...] follow up visits. Patient follows up with Procurement Technician, last visit notes available in chart (outside records). Cardiac Healthy Nutritional handout reviewed and provided for patient. 5. ASCVD (arteriosclerotic cardiovascular disease) (I25.10: 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) Patient follows up with Procurement Technician, every 6 months. Patient follows with Dr. Schneider and Dr. Mcdonald of [facility]. Last visit summary notes are available in chart (outside records). Denies concerns with SOB, chest pain or tightness. Taking medications daily as directed. Reviewed Cardiac nutritional recommendations with handout provided. Patient voices understanding with signs and symptoms to monitor for and report to provider. 6. Pure hypercholesterolemia (E78.00: Pur (more content not included)... Normal [facility] Comment on above: Result Comment: Elec tronically Signed By: Isabela Sheilds\.br\Date and Time Signed: 09/29/23 13:41 EDT\.br\Electronically Co-Signed By: Bhaskar Leigh\.br\Date and Time Co-Signed: 09/29/23 11:20 EDT Lab Reportson 09-29-2023 Lab Reports [id number] Normal [facility] Patient Educationon 09-29-19 Patient Education Cardiovascular Atrial [...] signals of the heart. ? An ambulatory bus driver/monitor to record your heart's activity for a [...] Trouble breathing. (more content not included)... Normal [facility] Screenson 09-29-2023 Screens [id number] Normal [facility] Orders Onlyon 09-15-2023 Orders Only [id number] Juan Barcenas 1935 M Date Provider Department Center 09/15/2023 ROBIN ESPINAL [facility] CARD Chhaya Count Family History Problem Relation Age of Onset Stroke Mother Other Father Family Status - Relation Status Age at Mother Father Normal [facility] 36on 07-29-2023 36 As long as vest is n ot too hot , would not recommend direct contact to skin Normal [facility] Telephoneon 07-29-2023 Telephone [id number] Narinder,Juan D 1935 M Date Provider Department Center 07/29/2023 [facility] Family History Problem Relation Age of Onset Stroke Mother Other Father Family Status - Relation Status Age at Mother Father Normal [facility] Orders Onlyon 06-16-2023 Orders Only [id number] Narinder,Juan D 1935 M Date Provider Department Center 06/16/2023 FRED GODWIN Family History Problem Relation Age of Onset Stroke Mother Other Father Family Status - Relation Status Age at Mother Father Normal [facility] ECHOCARDIO M/2D COMPLETEon 0 12-04-2022 ECHOCARDIO M/2D COMPLETE Normal [facility] XR CHEST 2 Von 10-01-2022 XR CHEST 2 V Normal [facility] CBC W MANUAL DIFFon 09-25-19 23 ANISOCYTOSIS SLIGHT Normal [facility] Comment on above: Performed By: #### C ALEX ####[facility] Fezoic[address]kys[address] [place] [address]Dr. Amina Escobar ATYPICAL LYMPH # Normal [facility] Comment on above: Performed By: #### C ALEX ####[facility] Wfhnrvnnra6962 [place] [address]Dr. Amina Escobar ATYPICAL LYMPH % Normal [facility] Comment on above: Performed By: #### C ALEX ####[facility] Trvybpzacq1468 [place] [address]Dr. Amina Escobar BAND # Normal 0.0-0.3 [facility] Comment on above: Performed By: #### C ALEX ####[facility] Hqjhbzntjr5576 [place] [address]Dr. Amina Escobar BAND % Normal 0-5 [facility] Comment on above: Performed By: #### C BCKELLY ####[facility] Mvahyuptrn9611 [place] [address]Dr. Amina Escobar BASOM # 0.00 103/ul Normal 0.00-0.10 [facility] Comment on above: Performed By: #### C BCMAN ####[facility] Faejynhqmp6177 [place] [address]Dr. Amina Escobar BASOM % 0.0 % Critically low 0.2-2.0 [facility] Comment on above: Performed By: #### C BCKELLY ####[facility] Trarxvoeip9533 [place] [address]Dr. Amina Escobar BLAST # Normal [facility] Comment on above: Performed By: #### C BCKELLY ####[facility] Wgkongdgql5396 [place] [address]Dr. Amina Escobar BLAST % Normal [facility] Comment on above: Performed By: #### C BCKELLY ####[facility] Xvguihebpi3558 [place] [address]Dr. Amina Escobar CORRECTED WBC Normal 4.0-11.0 [facility] Comment on above: Performed By: #### C BCKELLY ####[facility] Fracbtpyil1829 [place] [address]Dr. Amina Escobar EOS # 0.12 103/ul Normal 0.00-0.70 [facility] Comment on above: Performed By: #### C BCKELLY ####[facility] Vxqjnavwgv8330 [place] [address]Dr. Amina Escobar EOS% 2.0 % Normal 0.9-7.0 [facility] Comment on above: Performed By: #### C ALEX ####[facility] Ptdasqgxhx7350 [place] [address]Dr. Amina Escobar HCT 37.9 % Critically low 42.0-54.0 [facility] Comment on above: Performed By: #### C BCKELLY ####[facility] Kqopxxjtnc5819 [place] [id number]. Amina Escobar HGB 11.5 g/dl Critically low 14.0-18.0 [facility] Comment on above: Performed By: #### C ALEX ####[facility] Vjvkmwvtob4207 [place] [address]Dr. Amina Escobar HYPOCHROMASIA SLIGHT Normal [facility] Comment on above: Performed By: #### C ALEX ####[facility] Yhdwxqgxdv[address] [place], [place] [address]Dr. Amina Escobar LYMPHM # 0.65 103/ul Critically low 1.20-3.80 [facility] Comment on above: Performed By: #### C ALEX ####[facility] Auvcvggqla[address] [place], [place] [address]Dr. Amina Escobar LYMPHM% 11.0 % Critically low 20.5-60.0 [facility] Comment on above: Performed By: #### C ALEX ####[facility] Zvypcncaft[address] [place], [place] [address]Dr. Amina Escobar MCH 26.0 pg Normal 25.9-34.0 [facility] Comment on above: Performed By: #### Florence JOHNSON ####[facility] [address]qevtmuxu[address] [place], [place] [address]Dr. Amina Escobar MCHC 30.3 g/dl Normal 29.9-35.2 [facility] Comment on above: Performed By: #### Florence JOHNSON ####[facility] Zdfrsvmupw[address] [place], [place] [address]Dr. Amina Escobar MCV 85.7 fL Normal 80.0-94.0 [facility] Comment on above: Performed By: #### C ALEX ####[facility] Wutflynagg[address] [place], [place] [address]Dr. Amina Escobar METAMYELOCYTE # Normal [facility] Comment on above: Performed By: #### C ALEX ####[facility] Jtemwwhxlu36[address] [place], [place] [address]Dr. Amina Escobar METAMYELOCYTE % Normal [facility] Comment on above: Performed By: #### C ALEX ####[facility] Vcimzurqbq9456 [place] [id number]. Amina Escobar MICROCYTOSIS SLIGHT Normal [facility] Comment on above: Performed By: #### C ALEX ####[facility] Hdrrptkfgi7505 [place] [id number]. Amina Escobar MONOM# 0.35 103/ul Normal 0.30-0.80 [facility] Comment on above: Performed By: #### C ALEX ####[facility] Phrcpacsnb6283 [place] [id number]. Amina Escobar MONOM% 6.0 % Normal 1.7-12.0 [facility] Comment on above: Performed By: #### C ALEX ####[facility] Ffccrpfeoo[address] [place], [place] [address]Dr. Amina Escobar MPV 11.9 fL Normal 9.5-13.5 [facility] Comment on above: Performed By: #### C ALEX ####[facility] Sogroqzzpf[address] [place], [place] [address]Dr. Amina Escobar MYELOCYTE # Normal [facility] Comment on above: Performed By: #### C ALEX ####[facility] Myguqzuinz[address] [place], [place] [address]Dr. Amina Escobar MYELOCYTE % Normal [facility] Comment on above: Performed By: #### C ALEX ####[facility] Xhckevcvxd[address] [place], [place] [address]Dr. Amina Escobar NRBC Normal [facility] Comment on above: Performed By: #### C ALEX ####[facility] Hrgpjqjsct5092 [place] [id number]. Amina Escobar OVALOCYTES SLIGHT Normal [facility] Comment on above: Performed By: #### C ALEX ####[facility] Iboydqakff[address] [place], [place] [address]Dr. Amina Escobar PLT 185 103/ul Normal 150-450 [facility] Comment on above: Performed By: #### C ALEX ####[facility] Fxbefpchzb[address] [place], [place] [address]DrMemo Escobar POIKILOCYTOSIS SLIGHT Normal [facility] Comment on above: Performed By: #### C ALEX ####[facility] Qnkatejdjk8789 [place] [id number] Escobar RBC 4.42 106/ul Critically low 4.70-6.10 [facility] Comment on above: Performed By: #### C ALEX ####[facility] Xzduvhwyxo2235 [place] [address]DrMemo Escobar RDW 16.4 % Critically high 11.0-15.0 [facility] Comment on above: Performed By: #### C ALEX ####[facility] Gcovdycckr0804 [place] [address]DrMemo Escobar SEG # 4.78 103/ul Normal 1.40-6.50 [facility] Comment on above: Performed By: #### Florence JOHNSON ####[facility] Pugpjemoaa[address] [place], [place] [address]DrMemo Escobar SEG % 81.0 % Critically high 43.0-75.0 [facility] Comment on above: Performed By: #### Florence JOHNSON ####[facility] Zenfzabjqp2786 [place] [address]DrMemo Escobar WBC 5.9 103/ul Normal 4.0-11.0 [facility] Comment on above: Performed By: #### Florence JOHNSON ####[facility] Hxffqysucg[address] [place], [place] [address]DrMemo Escobar PROF CHEM 8 (BAS METB)on Anion gap [Moles/Vol] 8.5 mmol/L Normal [facility] Comment on above: Performed By: #### B MP ####[facility] Ybgbmmzfmq0346 [place] [address]DrMemo Escobar Calcium [Mass/Vol] 8.3 mg/dL Critically low 8.5-10.1 [facility] Comment on above: Performed By: #### B MP ####[facility] Kqbkstdbtp2289 [place] [address]DrMemo Escobar Chloride [Moles/Vol] 109 mmol/L Critically high 98-107 [facility] Comment on above: Performed By: #### B MP ####[facility] Jlyjbsavug5261 [place] [address]Dr. Amina Escobar CO2 [Moles/Vol] 29.5 mmol/L Normal 21.0-32.0 [facility] Comment on above: Performed By: #### B MP ####[facility] Qnerykdjux2418 [place] [address]Dr. Amina Shawn Creatinine [Mass/Vol] 1.11 mg/dL Normal 0.70-1.30 [facility] Comment on above: Performed By: #### B MP ####[facility] Bdprbamqkg[address] [place], [place] [address]Dr. Kandielda Shawn EGFR-AF MALAGASY >60 Normal >=60 [facility] Comment on above: Performed By: #### B MP ####[facility] Moxoxvjcxb[address] [place], [place] [address]Dr. Kandielda Shawn EGFR-NON AF MALAGASY >60 Normal >=60 [facility] Comment on above: Performed By: #### B MP ####[facility] Oglqeumgyy[address] [place], [place] [address]Dr. Kandielda Shawn Glucose [Mass/Vol] 96 mg/dL Normal 74-106 [facility] Comment on above: Performed By: #### B MP ####[facility] Mrpivqurxw[address] [place], [place] [address]Dr. Amina Escobar Potassium [Moles/Vol] 4.0 mmol/L Normal 3.5-5.1 [facility] Comment on above: Performed By: #### B MP ####[facility] Hivazszvls[address] [place], [place] [address]Dr. Amina Escobar Sodium [Moles/Vol] 143 mmol/L Normal 136-145 [facility] Comment on above: Performed By: #### B MP ####[facility] Emypfdzjng8[address] [place], [place] [address]Dr. Amina Escobar Urea nitrogen [Mass/Vol] 22.0 mg/dL Critically high 7.0-18.0 [facility] Comment on above: Performed By: #### B MP ####[facility] Sbmahbpwjk[address] [place], [place] [address]Dr. Amina Escobar Urea nitrogen/Creatinine [Mass ratio] 19.8 mg/mg Normal [facility] Comment on above: Performed By: #### B MP ####[facility] Brbuienpyi[address] [place], [place] [address]Dr. Amina Escobar CBC AUTO DIFFon 08-12-2022 BASO # 0.0 103/ul Normal 0.0-0.1 [facility] Comment on above: Performed By: #### C BC ####[facility] Fxbwdvdvqc[address] [place], [place] [address]Dr. Amina Escobar Basophils/100 WBC (Bld) 0.7 % Normal 0.2-2.0 [facility] Comment on above: Performed By: #### C BC ####[facility] Byckrjlbio[address] [place], [place] [address]Dr. Amina Escobar EO # 0.2 103/ul Normal 0.0-0.7 [facility] Comment on above: Performed By: #### C BC ####[facility] Spyimtzmhs[address] [place], [place] [address]Dr. Amina Escobar Eosinophils/100 WBC (Bld) 3.9 % Normal 0.9-7.0 [facility] Comment on above: Performed By: #### C BC ####[facility] Ygbkvuxqwg[address] [place], [place] [address]Dr. Amina Escobar Erythrocyte distribution width (RBC) [Ratio] 15.5 % Critically high 11.0-15.0 [facility] Comment on above: Performed By: #### C BC ####[facility] Pnqhfsmwtl[address] [place], [place] [address]Dr. Amina Escobar Hematocrit (Bld) [Volume fraction] 39.3 % Critically low 42.0-54.0 [facility] Comment on above: Performed By: #### C BC ####[facility] Fzndvxnvtp[address] [place], [place] [address]Dr. Amina Escobar Hemoglobin (Bld) [Mass/Vol] 11.5 g/dL Critically low 14.0-18.0 [facility] Comment on above: Performed By: #### C BC ####[facility] Xdvdqcrymn3399 [place] [address]Dr. Kandielda Escobar IG # 0.02 10e3/ul Normal 0.00-0.03 [facility] Comment on above: Performed By: #### C BC ####[facility] Arcyannsuy8348 [place] [address]Dr. Amina Escobar IG % 0.4 % Normal 0.0-0.5 [facility] Comment on above: Performed By: #### C BC ####[facility] Sxrapldqis[address] [place], [place] [address]DrMemo Escobar LYMPH # 0.6 103/ul Critically low 1.2-3.8 [facility] Comment on above: Performed By: #### C BC ####[facility] Y[address]aseksui[address] [place], [place] [address]Dr. Amina Escobar Lymphocytes/100 WBC (Bld) 10.1 % Critically low 20.5-60.0 [facility] Comment on above: Performed By: #### C BC ####[facility] Otfrzghwjk[address] [place], [place] [address]DrMemo Escobar MANUAL DIFF REQ NO Normal [facility] Comment on above: Performed By: #### C BC ####[facility] Wyedtbpnsr[address] [place], [place] [address]Dr. Amina Escobar MCH (RBC) [Entitic mass] 27.0 pg Normal 25.9-34.0 [facility] Comment on above: Performed By: #### C BC ####[facility] Qtqlbsjirz[address] [place], [place] [address]Dr. Amina Escobar MCHC (RBC) [Mass/Vol] 29.3 g/dL Critically low 29.9-35.2 The [facility] Comment on above: Performed By: #### C BC ####[facility] Vjpxkgcklk[address] [place], [place] [address]Dr. Amina Escobar MCV (RBC) [Entitic vol] 92.3 fL Normal 80.0-94.0 [facility] Comment on above: Performed By: #### C BC ####[facility] Goxafwkera7[address] [place], [place] [address]DrMemo Amina Escobar MONO # 0.5 103/ul Normal 0.3-0.8 [facility] Comment on above: Performed By: #### C BC ####[facility] Gdjvudkonh[address] [place], [place] [address]DrMemo Amina Shawn Monocytes/100 WBC (Bld) 9.0 % Normal 1.7-12.0 [facility] Comment on above: Performed By: #### C BC ####[facility] Otomzmaixt[address] [place], [place] [address]DrMemo Amina Escobar NEUT # 4.3 103/ul Normal 1.4-6.5 [facility] Comment on above: Performed By: #### C BC ####[facility] Pihnizwbfx18[address] [place], [place] [address]DrMemo Amina Escobar Neutrophils/100 WBC (Bld) 75.9 % Critically high 43.0-75.0 [facility] Comment on above: Performed By: #### C BC ####[facility] Awcxtshezi26[address] [place], [place] [address]DrMemo Amina Escobar Platelet mean volume (Bld) [Entitic vol] 11.4 fL Normal 9.5-13.5 [facility] Comment on above: Performed By: #### C BC ####[facility] Qyzlhdlkgp[address] [place], [place] [address]DrMemo Amina Shawn PLT 216 103/ul Normal 150-450 [facility] Comment on above: Performed By: #### C BC ####[facility] Xniaqzgitp27[address] [place], [place] [address]DrMemo Chauelda Shawn RBC 4.26 106/ul Critically low 4.70-6.10 [facility] Comment on above: Performed By: #### C BC ####[facility] Fvhbrzohka13[address] [place], [place] [address]DrMemo Escobar WBC 5.7 103/ul Normal 4.0-11.0 [facility] Comment on above: Performed By: #### C BC ####[facility] Zeimysufgw[address] [place] [address]Dr. Amina Escobar PROF CHEM 8 (BAS METB)on Anion gap [Moles/Vol] 11.9 mmol/L Normal [facility] Comment on above: Performed By: #### B MP ####[facility] Civbtcthux33[address] [place], [place] [address]Dr. Amina Escobar Calcium [Mass/Vol] 8.5 mg/dL Normal 8.5-10.1 [facility] Comment on above: Performed By: #### B MP ####[facility] Jxhaylznqy6[address] [place], [place] [address]Dr. Amina Escobar Chloride [Moles/Vol] 108 mmol/L Critically high 98-107 [facility] Comment on above: Performed By: #### B MP ####[facility] Cwgbsfifgl4614[address] [place], [place] [address]Dr. Amina Escobar CO2 [Moles/Vol] 30.8 mmol/L Normal 21.0-32.0 [facility] Comment on above: Performed By: #### B MP ####[facility] Vvpsfnxsnj17[address] [place], [place] [address]Dr. Amina Escobar Creatinine [Mass/Vol] 1.14 mg/dL Normal 0.70-1.30 [facility] Comment on above: Performed By: #### B MP ####[facility] Ykjwyteflg8538[address] [place], [place] [address]Dr. Amina Escobar EGFR-AF MALAGASY >60 Normal >=60 [facility] Comment on above: Performed By: #### B MP ####[facility] Culqjskwbw2833[address] [place], [place] [address]Dr. Amina Escobar EGFR-NON AF MALAGASY >60 Normal >=60 [facility] Comment on above: Performed By: #### B MP ####[facility] Csrncjamyx8[address] [place], [place] [address]Dr. Amina Escobar Glucose [Mass/Vol] 74 mg/dL Normal 74-106 [facility] Comment on above: Performed By: #### B MP ####[facility] Ryvinazqdg[address] [place], [place] [address]Dr. Amina Escobar Potassium [Moles/Vol] 3.7 mmol/L Normal 3.5-5.1 [facility] Comment on above: Performed By: #### B MP ####[facility] Bvotpgvmdw8779[address] [place], [place] [address]Dr. Amina Escobar Sodium [Moles/Vol] 147 mmol/L Critically high 136-[address] [facility] Comment on above: Performed By: #### B MP ####[facility] Utrzwmzjww4727[address] [place], [place] [address]Dr. Amina Escobar Urea nitrogen [Mass/Vol] 26.0 mg/dL Critically high 7.0-18.0 [facility] Comment on above: Performed By: #### B MP ####[facility] Wwdqvhrluy25[address] [place], [place] [address]Dr. Amina Escobar Urea nitrogen/Creatinine [Mass ratio] 22.8 mg/mg Normal [facility] Comment on above: Performed By: #### B MP ####[facility] Wimpplqexb67[address] [place], [place] [address]Dr. Amina Escobar XR CHEST 2 Von 07-28-2022 XR CHEST 2 V Normal [facility] CBC AUTO DIFFon 07-27-2022 BASO # 0.0 103/ul Normal 0.0-0.1 [facility] Comment on above: Performed By: #### C BC ####[facility] Asorybdujv[address] [place], [place] [address]Dr. Amina Escobar Basophils/100 WBC (Bld) 0.5 % Normal 0.2-2.0 [facility] Comment on above: Performed By: #### C BC ####[facility] Iwftggjkcw[address] [place], [place] [address]Dr. Amina Escobar EO # 0.2 103/ul Normal 0.0-0.7 [facility] Comment on above: Performed By: #### C BC ####[facility] Rttfxamspp33[address] [place], [place] [address]Dr. Amina Escobar Eosinophils/100 WBC (Bld) 2.8 % Normal 0.9-7.0 [facility] Comment on above: Performed By: #### C BC ####[facility] F[address]qjajszi[address] [place] [address]Dr. Amina Escobar Erythrocyte distribution width (RBC) [Ratio] 15.0 % Normal 11.0-15.0 [facility] Comment on above: Performed By: #### C BC ####[facility] Scvvikvsfs[address] [place] [address]Dr. Amina Escobar Hematocrit (Bld) [Volume fraction] 37.0 % Critically low 42.0-54.0 [facility] Comment on above: Performed By: #### C BC ####[facility] Foizrkddar87[address] [place] [address]Dr. Amina Escobar Hemoglobin (Bld) [Mass/Vol] 11.5 g/dL Critically low 14.0-18.0 [facility] Comment on above: Performed By: #### C BC ####[facility] Vvittrontp13[address] [place] [address]Dr. Amina Escobar IG # 0.03 10e3/ul Normal 0.00-0.03 [facility] Comment on above: Performed By: #### C BC ####[facility] Bhxjocabpu[address] [place] [address]Dr. Amina Escobar IG % 0.5 % Normal 0.0-0.5 [facility] Comment on above: Performed By: #### C BC ####[facility] Znzkxmmsbx3831 [place] [address]Dr. Amina Escobar LYMPH # 0.6 103/ul Critically low 1.2-3.8 [facility] Comment on above: Performed By: #### C BC ####[facility] Hjwmhnafrh[address] [place] [address]Dr. Amina Escobar Lymphocytes/100 WBC (Bld) 9.2 % Critically low 20.5-60.0 [facility] Comment on above: Performed By: #### C BC ####[facility] Ccaywhipvb[address] [place] [address]Dr. Amina Escobar MANUAL DIFF REQ NO Normal [facility] Comment on above: Performed By: #### C BC ####[facility] Zqmidslwmd85[address] [place] [address]Dr. Amina Escobar MCH (RBC) [Entitic mass] 27.8 pg Normal 25.9-34.0 [facility] Comment on above: Performed By: #### C BC ####[facility] Gazyjjiumd15[address] [place] [address]Dr. Amina Escobar MCHC (RBC) [Mass/Vol] 31.1 g/dL Normal 29.9-35.2 [facility] Comment on above: Performed By: #### C BC ####[facility] Puxuedkyop74[address] [place] [address]Dr. Amina Shawn MCV (RBC) [Entitic vol] 89.4 fL Normal 80.0-94.0 [facility] Comment on above: Performed By: #### C BC ####[facility] Bhnyqspeoz86[address] [place], [place] [address]Dr. Amina Shawn MONO # 0.6 103/ul Normal 0.3-0.8 [facility] Comment on above: Performed By: #### C BC ####[facility] Tjzjkcrmup8[address] [place] [address]Dr. Kandielda Escobar Monocytes/100 WBC (Bld) 8.6 % Normal 1.7-12.0 [facility] Comment on above: Performed By: #### C BC ####[facility] Fdacicjzcv57[address] [place] [address]Dr. Kandielda Shawn NEUT # 5.1 103/ul Normal 1.4-6.5 [facility] Comment on above: Performed By: #### C BC ####[facility] Oqdoxauwzb060[address] [place], [place] [address]Dr. Amina Escobar Neutrophils/100 WBC (Bld) 78.4 % Critically high 43.0-75.0 [facility] Comment on above: Performed By: #### C BC ####[facility] Jdthznzfnw7687 [place] [address]Dr. Amina Escobar Platelet mean volume (Bld) [Entitic vol] 11.2 fL Normal 9.5-13.5 [facility] Comment on above: Performed By: #### C BC ####[facility] [address]obkkrzpy[address] [place] [id number]. Amina Escobar PLT 239 103/ul Normal 150-450 [facility] Comment on above: Performed By: #### C BC ####[facility] Vcwstzmfdb8414 [place] [address]Dr. Amina Escobar RBC 4.14 106/ul Critically low 4.70-6.10 [facility] Comment on above: Performed By: #### C BC ####[facility] Cytzworysz[address]16[address] [place], [place] [address]Dr. Amina Escobar WBC 6.4 103/ul Normal 4.0-11.0 [facility] Comment on above: Performed By: #### C BC ####[facility] Oosgofthhb9[address] [place], [place] [address]Dr. Amina Escobar FREE T4on 07-27-2022 Free T4 [Mass/Vol] 1.31 ng/dL Normal 0.76-1.46 [facility] Comment on above: Performed By: #### F T4 ####[facility] Kagzgzoiim25[address] [place] [address]Dr. Amina Escobar LIVER PROFILEon 07-27-2022 Albumin [Mass/Vol] 3.5 g/dL Normal 3.4-5.0 [facility] Comment on above: Performed By: #### T SH, LIVER ####[facility] Scpcjqhnzg65[address] [place] [id number]. Amina Escobar Albumin/Globulin [Mass ratio] 0.9 {ratio} Normal [facility] Comment on above: Performed By: #### T SH, LIVER ####[facility] Rlfaeggtcd2442 [place] [address]Dr. Amina Escobar ALP [Catalytic activity/Vol] 210 U/L Critically high 46-116 [facility] Comment on above: Performed By: #### T SH, LIVER ####[facility] Ggvdwrkzgt[address] [place], [place] [id number]. Amina Escobar ALT [Catalytic activity/Vol] 19 U/L Normal 16-63 [facility] Comment on above: Performed By: #### T SH, LIVER ####[facility] Nqimqsepuy05[address] [place], [place] [id number]. Amina Escobar AST [Catalytic activity/Vol] 13 U/L Critically low 15-37 [facility] Comment on above: Performed By: #### T SH, LIVER ####[facility] Kkbczdboes[address] [place], [place] [address]Dr. Amina Escobar BILI, CONJUGATED 0.1 mg/dL Normal 0.0-0.2 [facility] Comment on above: Performed By: #### T SH, LIVER ####[facility] Coxnpceucy[address] [place], [place] [address]Dr. Amina Escobar Bilirubin [Mass/Vol] 0.4 mg/dL Normal 0.2-1.0 [facility] Comment on above: Performed By: #### T SH, LIVER ####[facility] Ncdwvkrciq[address] [place], [place] [address]Dr. Amina Escobar Globulin (S) [Mass/Vol] 3.7 g/dL Normal [facility] Comment on above: Performed By: #### T SH, LIVER ####[facility] Bsmguqucel380[address] [place], [place] [address]Dr. Amina Escobar Protein [Mass/Vol] 7.2 g/dL Normal 6.4-8.2 [facility] Comment on above: Performed By: #### T SH, LIVER ####[facility] Lzxpvxshrs036[address] [place], [place] [address]Dr. Amina Escobar TSHon 07-27-2022 TSH 1.669 uIU/mL Normal 0.358-3.74 0 [facility] Comment on above: Performed By: #### T SH, LIVER ####[facility] Fsyiexgggq[address] [place], [place] [address]Dr. Amina Escobar CBC AUTO DIFFon 07-15-2022 BASO # 0.1 103/ul Normal 0.0-0.1 [facility] Comment on above: Performed By: #### C BC ####[facility] Cvnecldqnj[address] [place], [place] [address]Dr. Kandielda Escobar Basophils/100 WBC (Bld) 0.7 % Normal 0.2-2.0 [facility] Comment on above: Performed By: #### C BC ####[facility] Haupmgwtdi945[address] [place], [place] [address]Dr. Amina Escobar EO # 0.2 103/ul Normal 0.0-0.7 [facility] Comment on above: Performed By: #### C BC ####[facility] Odvcqoljdg8075[address] [place], [place] [address]Dr. Amina Escobar Eosinophils/100 WBC (Bld) 2.3 % Normal 0.9-7.0 [facility] Comment on above: Performed By: #### C BC ####[facility] Exiqapkhnr4310[address] [place], [place] [address]Dr. Amina Escobar Erythrocyte distribution width (RBC) [Ratio] 15.0 % Normal 11.0-15.0 [facility] Comment on above: Performed By: #### C BC ####[facility] Hzrewadswz0807[address] [place], [place] [address]Dr. Kandielda Escobar Hematocrit (Bld) [Volume fraction] 34.2 % Critically low 42.0-54.0 [facility] Comment on above: Performed By: #### C BC ####[facility] Cjdnwromkm889[address] [place], [place] [address]Dr. Amina Escobar Hemoglobin (Bld) [Mass/Vol] 10.6 g/dL Critically low 14.0-18.0 [facility] Comment on above: Performed By: #### C BC ####[facility] Bbldozzonn124[address] [place], [place] [address]Dr. Amina Escobar IG # 0.03 10e3/ul Normal 0.00-0.03 [facility] Comment on above: Performed By: #### C BC ####[facility] Icpdqgkksn192[address] [place], [place] [address]DrMemo Escobar IG % 0.4 % Normal 0.0-0.5 [facility] Comment on above: Performed By: #### C BC ####[facility] Uswtisbsqk36[address] [place] [address]DrMemo Escobar LYMPH # 0.6 103/ul Critically low 1.2-3.8 [facility] Comment on above: Performed By: #### C BC ####[facility] Nucjvtkvov24[address] [place] [address]DrMemo Escobar Lymphocytes/100 WBC (Bld) 8.8 % Critically low 20.5-60.0 [facility] Comment on above: Performed By: #### C BC ####[facility] Vxasbxfxmg[address] [place], [place] [address]DrMemo Escobar MANUAL DIFF REQ NO Normal [facility] Comment on above: Performed By: #### C BC ####[facility] Pugbivusdu[address] [place], [place] [address]DrMemo Escobar MCH (RBC) [Entitic mass] 28.9 pg Normal 25.9-34.0 [facility] Comment on above: Performed By: #### C BC ####[facility] Uqhxptxswc[address] [place], [place] [address]Dr. Kandielda Escobar MCHC (RBC) [Mass/Vol] 31.0 g/dL Normal 29.9-35.2 [facility] Comment on above: Performed By: #### C BC ####[facility] Vdabizbodh[address] [place], [place] [address]DrMemo Escobar MCV (RBC) [Entitic vol] 93.2 fL Normal 80.0-94.0 [facility] Comment on above: Performed By: #### C BC ####[facility] Djrrheeuqb[address] [place], [place] [address]DrMemo Escobar MONO # 0.6 103/ul Normal 0.3-0.8 [facility] Comment on above: Performed By: #### C BC ####[facility] Kbqldgijzw01[address] [place], [place] [address]DrMemo Escobar Monocytes/100 WBC (Bld) 8.8 % Normal 1.7-12.0 [facility] Comment on above: Performed By: #### C BC ####[facility] Baombakzcc[address] [place] [address]DrMemo Amina Escobar NEUT # 5.6 103/ul Normal 1.4-6.5 [facility] Comment on above: Performed By: #### C BC ####[facility] Ojoljqkinq3832 [place] [address]DrMemo Amina Shawn Neutrophils/100 WBC (Bld) 79.0 % Critically high 43.0-75.0 [facility] Comment on above: Performed By: #### C BC ####[facility] Ymdeihndfy4441 [place] [address]DrMemo Amina Shawn Platelet mean volume (Bld) [Entitic vol] 10.1 fL Normal 9.5-13.5 [facility] Comment on above: Performed By: #### C BC ####[facility] Gndgcjemzw30[address] [place] [address]Dr. Amina Shawn PLT 215 103/ul Normal 150-450 [facility] Comment on above: Performed By: #### C BC ####[facility] Oeejtqqnaa[address] [place], [place] [address]DrMemo Amina Shawn RBC 3.67 106/ul Critically low 4.70-6.10 [facility] Comment on above: Performed By: #### C BC ####[facility] Hcilfcsvkx8654 [place] [address]DrMemo Escobar WBC 7.1 103/ul Normal 4.0-11.0 [facility] Comment on above: Performed By: #### C BC ####[facility] Orciyyzlvw8980 [place] [address]DrMemo Kandielda Escobar PRBC LEUKOREDUCEDon 07-09-20 22 PRBC LEUKOREDUCED Normal [facility] Comment on above: Performed By: #### P RBC, TNS ####[facility] Altxklofxi35[address] [place] [address]Dr. Amina Escobar Performed By: #### P RBC ####[facility] Tffifaaanz[address] [place], [place] [address]Dr. Amina Escobar PRBC LEUKOREDUCED Normal [facility] Comment on above: Performed By: #### P RBC ####[facility] Yxnhuhxaoz[address] [place], [place] [address]Dr. Amina Escobar HEMOGLOBIN AND HEMATOCRITon 07-08-2022 Hematocrit (Bld) [Volume fraction] 25.4 % Critically low 42.0-54.0 [facility] Comment on above: Performed By: #### H GBHCT ####[facility] Wfvtweapad246[address] [place], [place] [address]Dr. Amina Escobar Hemoglobin (Bld) [Mass/Vol] 7.5 g/dL Critically low 14.0-18.0 [facility] Comment on above: Performed By: #### H GBHCT ####[facility] Auzfrvquhd[address] [place], [place] [address]Dr. Amina Escobar TYPE AND SCREENon 07-08-2022 TYPE AND SCREEN Negative Normal [facility] Comment on above: Performed By: #### P RBC, TNS ####[facility] Vfksnyufel[address] [place], [place] [address]Dr. Amina Escobar CBC AUTO DIFFon 07-06-2022 BASO # 0.1 103/ul Normal 0.0-0.1 [facility] Comment on above: Performed By: #### C BC ####[facility] Siwxgxnngf9523[address] [place], [place] [address]Dr. Amina Shawn Basophils/100 WBC (Bld) 0.8 % Normal 0.2-2.0 [facility] Comment on above: Performed By: #### C BC ####[facility] Hcutxrrgyg1180[address] [place], [place] [address]Dr. Kandielda Escobar EO # 0.1 103/ul Normal 0.0-0.7 [facility] Comment on above: Performed By: #### C BC ####[facility] Qvduxxyuap69[address] [place], [place] [address]Dr. Kandielda Escobar Eosinophils/100 WBC (Bld) 1.8 % Normal 0.9-7.0 [facility] Comment on above: Performed By: #### C BC ####[facility] Arlqyqyrko7854 [place] [address]Dr. Amina Escobar Erythrocyte distribution width (RBC) [Ratio] 15.9 % Critically high 11.0-15.0 [facility] Comment on above: Performed By: #### C BC ####[facility] Zccbnsacyj3757 [place] [address]Dr. Amina Escobar Hematocrit (Bld) [Volume fraction] 24.7 % Critically low 42.0-54.0 [facility] Comment on above: Performed By: #### C BC ####[facility] Kggypozidg[address] [place], [place] [address]DrMemo Amina Escobar Hemoglobin (Bld) [Mass/Vol] 7.4 g/dL Critically low 14.0-18.0 [facility] Comment on above: Performed By: #### C BC ####[facility] Zuqokkjfpb408[address] [place], [place] [address]DrMemo Amina Escobar IG # 0.02 10e3/ul Normal 0.00-0.03 [facility] Comment on above: Performed By: #### C BC ####[facility] Sfzuacdqjx[address] [place], [place] [address]DrMemo Amina Escobar IG % 0.3 % Normal 0.0-0.5 [facility] Comment on above: Performed By: #### C BC ####[facility] Fbtlnihbyc[address] [place], [place] [address]DrMemo Amina Escobar LYMPH # 0.7 103/ul Critically low 1.2-3.8 [facility] Comment on above: Performed By: #### C BC ####[facility] Fngcbxotej07[address] [place], [place] [address]DrMemo Amina Escobar Lymphocytes/100 WBC (Bld) 10.6 % Critically low 20.5-60.0 [facility] Comment on above: Performed By: #### C BC ####[facility] Fpmvyljqyc[address] [place], [place] [address]DrMemo Amina Escobar MANUAL DIFF REQ NO Normal [facility] Comment on above: Performed By: #### C BC ####[facility] Gkdsxocsih49[address] [place] [id number]. Amina Shawn MCH (RBC) [Entitic mass] 29.1 pg Normal 25.9-34.0 [facility] Comment on above: Performed By: #### C BC ####[facility] Ssrvvabxib9920 [place] [address]Dr. Amina Shawn MCHC (RBC) [Mass/Vol] 30.0 g/dL Normal 29.9-35.2 [facility] Comment on above: Performed By: #### C BC ####[facility] Ehbxzdocaj6553 [place] [address]Dr. Amina Escobar MCV (RBC) [Entitic vol] 97.2 fL Critically high 80.0-94.0 [facility] Comment on above: Performed By: #### C BC ####[facility] Yttzndqkim[address] [place], [place] [address]Dr. Amina Escobar MONO # 0.6 103/ul Normal 0.3-0.8 [facility] Comment on above: Performed By: #### C BC ####[facility] Uwasrueopl834[address] [place], [place] [address]Dr. Amina Escobar Monocytes/100 WBC (Bld) 9.1 % Normal 1.7-12.0 [facility] Comment on above: Performed By: #### C BC ####[facility] Btqjpqggkw347[address] [place], [place] [address]Dr. Amina Escobar NEUT # 4.8 103/ul Normal 1.4-6.5 [facility] Comment on above: Performed By: #### C BC ####[facility] Pxcajxptey[address] [place], [place] [id number] Escobar Neutrophils/100 WBC (Bld) 77.4 % Critically high 43.0-75.0 [facility] Comment on above: Performed By: #### C BC ####[facility] Qefedryrkv6[address] [place], [place] [address]DrMemo Escobar Platelet mean volume (Bld) [Entitic vol] 10.4 fL Normal 9.5-13.5 [facility] Comment on above: Performed By: #### C BC ####[facility] Hfdafefulm3686 [place] [address]Dr. Amina Escobar PLT 263 103/ul Normal 150-450 [facility] Comment on above: Performed By: #### C BC ####[facility] Esxpaxbgpa[address] [place], [place] [address]Dr. Amina Escobar RBC 2.54 106/ul Critically low 4.70-6.10 [facility] Comment on above: Performed By: #### C BC ####[facility] Qzybiwbjud[address] [place], [place] [address]Dr. Amina Shawn WBC 6.1 103/ul Normal 4.0-11.0 [facility] Comment on above: Performed By: #### C BC ####[facility] Cstsehvcon[address] [place], [place] [address]Dr. Amina Shawn HEMOGLOBIN AND HEMATOCRITon 06-23-2022 Hematocrit (Bld) [Volume fraction] 29.2 % Critically low 42.0-54.0 [facility] Comment on above: Performed By: #### H GBHCT ####[facility] Saexmfjuos[address] [place], [place] [address]Dr. Amina Escobar Hemoglobin (Bld) [Mass/Vol] 9.3 g/dL Critically low 14.0-18.0 [facility] Comment on above: Performed By: #### H GBHCT ####[facility] Orcvlpveof[address] [place], [place] [address]Dr. Amina Shawn TYPE AND SCREENon 06-23-2022 TYPE AND SCREEN Negative Normal [facility] Comment on above: Performed By: #### T NS ####[facility] Qtmpmqhifh9[address] [place], [place] [address]Dr. Amina Shawn CBC AUTO DIFFon 06-22-2022 BASO # 0.0 103/ul Normal 0.0-0.1 [facility] Comment on above: Performed By: #### C BC ####[facility] Kidpsrhwna[address] [place], [place] [address]Dr. Amina Shawn Basophils/100 WBC (Bld) 0.7 % Normal 0.2-2.0 [facility] Comment on above: Performed By: #### C BC ####[facility] Uimquqzvsr[address] [place], [place] [address]Dr. Amina Escobar EO # 0.2 103/ul Normal 0.0-0.7 [facility] Comment on above: Performed By: #### C BC ####[facility] Obgjxlxlam[address] [place], [place] [address]Dr. Amina Escobar Eosinophils/100 WBC (Bld) 3.2 % Normal 0.9-7.0 [facility] Comment on above: Performed By: #### C BC ####[facility] Dqyigvouzy[address] [place], [place] [address]Dr. Amina Escobar Erythrocyte distribution width (RBC) [Ratio] 15.6 % Critically high 11.0-15.0 [facility] Comment on above: Performed By: #### C BC ####[facility] Ovmhscvofh[address] [place], [place] [address]Dr. Amina Escobar Hematocrit (Bld) [Volume fraction] 24.9 % Critically low 42.0-54.0 [facility] Comment on above: Performed By: #### C BC ####[facility] Mzddulntdr[address] [place], [place] [address]Dr. Amina Escobar Hemoglobin (Bld) [Mass/Vol] 7.6 g/dL Critically low 14.0-18.0 [facility] Comment on above: Performed By: #### C BC ####[facility] Ihjzafmrtz4[address] [place], [place] [address]Dr. Amina Escobar IG # 0.03 10e3/ul Normal 0.00-0.03 [facility] Comment on above: Performed By: #### C BC ####[facility] Plinkdlgyq[address] [place], [place] [address]Dr. Amina Escobar IG % 0.5 % Normal 0.0-0.5 [facility] Comment on above: Performed By: #### C BC ####[facility] [address] [place] [address]Dr. Amina Shawn LYMPH # 0.6 103/ul Critically low 1.2-3.8 [facility] Comment on above: Performed By: #### C BC ####[facility] Cbhcfhissg6[address] [place] [address]Dr. Amina Shawn Lymphocytes/100 WBC (Bld) 9.3 % Critically low 20.5-60.0 [facility] Comment on above: Performed By: #### C BC ####[facility] Meavgvltjq[address] [place] [address]Dr. Amina Shawn MANUAL DIFF REQ NO Normal [facility] Comment on above: Performed By: #### C BC ####[facility] Ixribyuyiv74[address] [place] [address]Dr. Amina Shawn MCH (RBC) [Entitic mass] 30.2 pg Normal 25.9-34.0 [facility] Comment on above: Performed By: #### C BC ####[facility] Axdgyufqks33[address] [place], [place] [address]Dr. Amina Shawn MCHC (RBC) [Mass/Vol] 30.5 g/dL Normal 29.9-35.2 [facility] Comment on above: Performed By: #### C BC ####[facility] Ogdabwokag4[address] [place], [place] [address]Dr. Kandielda Escobar MCV (RBC) [Entitic vol] 98.8 fL Critically high 80.0-94.0 [facility] Comment on above: Performed By: #### C BC ####[facility] Ixwysixhif[address] [place], [place] [address]Dr. Amina Shawn MONO # 0.4 103/ul Normal 0.3-0.8 [facility] Comment on above: Performed By: #### C BC ####[facility] Hwkryxaypk2309[address] [place], [place] [address]Dr. Kandielda Escobar Monocytes/100 WBC (Bld) 6.4 % Normal 1.7-12.0 [facility] Comment on above: Performed By: #### C BC ####[facility] Nluflgjslj[address] [place], [place] [id number]. Amina Escobar NEUT # 4.8 103/ul Normal 1.4-6.5 [facility] Comment on above: Performed By: #### C BC ####[facility] Yzmvprkdgb2469 [place] [address]Dr. Amina Escobar Neutrophils/100 WBC (Bld) 79.9 % Critically high 43.0-75.0 [facility] Comment on above: Performed By: #### C BC ####[facility] Olesowzwla[address] [place] [address]Dr. Amina Escobar Platelet mean volume (Bld) [Entitic vol] 10.3 fL Normal 9.5-13.5 [facility] Comment on above: Performed By: #### C BC ####[facility] Cwkqnwativ8331 [place] [address]Dr. Amina Escobar PLT 205 103/ul Normal 150-450 [facility] Comment on above: Performed By: #### C BC ####[facility] Chkfojzozu058[address] [place], [place] [address]Dr. Amina Escobar RBC 2.52 106/ul Critically low 4.70-6.10 [facility] Comment on above: Performed By: #### C BC ####[facility] Qguhhickyp60[address] [place], [place] [address]Dr. Amina Escobar WBC 5.9 103/ul Normal 4.0-11.0 [facility] Comment on above: Performed By: #### C BC ####[facility] Umpknrdhze0027[address] [place], [place] [address]Dr. Amina Escobar CBC AUTO DIFFon 06-16-2022 BASO # 0.1 103/ul Normal 0.0-0.1 [facility] Comment on above: Performed By: #### C BC ####[facility] Aysdlbamci[address] [place], [place] [address]Dr. Amina Escobar Basophils/100 WBC (Bld) 0.7 % Normal 0.2-2.0 [facility] Comment on above: Performed By: #### C BC ####[facility] Tuaggsachs[address] [place], [place] [address]Dr. Amina Escobar EO # 0.2 103/ul Normal 0.0-0.7 [facility] Comment on above: Performed By: #### C BC ####[facility] Jgrkjcvedx[address] [place] [address]Dr. Amina Escobar Eosinophils/100 WBC (Bld) 2.7 % Normal 0.9-7.0 [facility] Comment on above: Performed By: #### C BC ####[facility] Npowhqstdb56[address] [place], [place] [address]Dr. Amina Escobar Erythrocyte distribution width (RBC) [Ratio] 16.5 % Critically high 11.0-15.0 [facility] Comment on above: Performed By: #### C BC ####[facility] Kulewwnpmy[address] [place], [place] [address]Dr. Amina Escobar Hematocrit (Bld) [Volume fraction] 28.5 % Critically low 42.0-54.0 [facility] Comment on above: Performed By: #### C BC ####[facility] Hvaswutmky8[address] [place], [place] [address]Dr. Amina Escobar Hemoglobin (Bld) [Mass/Vol] 8.6 g/dL Critically low 14.0-18.0 [facility] Comment on above: Performed By: #### C BC ####[facility] Xmajkubdpa5[address] [place], [place] [address]Dr. Amina Escobar IG # 0.03 10e3/ul Normal 0.00-0.03 [facility] Comment on above: Performed By: #### C BC ####[facility] Scfbxumtgm8730[address] [place], [place] [address]Dr. Amina Escobar IG % 0.4 % Normal 0.0-0.5 [facility] Comment on above: Performed By: #### C BC ####[facility] Efqpozpqlg7[address] [place], [place] [address]Dr. Amina Escobar LYMPH # 0.8 103/ul Critically low 1.2-3.8 [facility] Comment on above: Performed By: #### C BC ####[facility] Em[address]kfpwhvp[address] [place] [address]Dr. Amina Shawn Lymphocytes/100 WBC (Bld) 11.1 % Critically low 20.5-60.0 [facility] Comment on above: Performed By: #### C BC ####[facility] Lmmhcuzwcq74[address] [place] [address]Dr. Kandielda Escobar MANUAL DIFF REQ NO Normal [facility] Comment on above: Performed By: #### C BC ####[facility] Hkgasaonak[address] [place] [address]Dr. Amina Shawn MCH (RBC) [Entitic mass] 30.3 pg Normal 25.9-34.0 [facility] Comment on above: Performed By: #### C BC ####[facility] Fwdhemlcwg[address] [place], [place] [address]Dr. Kandielda Escobar MCHC (RBC) [Mass/Vol] 30.2 g/dL Normal 29.9-35.2 [facility] Comment on above: Performed By: #### C BC ####[facility] Ywmqqdyebv8117 [place] [address]Dr. Kandielda Escobar MCV (RBC) [Entitic vol] 100.4 fL Critically high 80.0-94.0 [facility] Comment on above: Performed By: #### C BC ####[facility] Vkbhribqdo[address] [place], [place] [address]Dr. Amina Escobar MONO # 0.6 103/ul Normal 0.3-0.8 [facility] Comment on above: Performed By: #### C BC ####[facility] Qewpykpqas[address]37[address] [place], [place] [address]Dr. Amina Escobar Monocytes/100 WBC (Bld) 8.4 % Normal 1.7-12.0 [facility] Comment on above: Performed By: #### C BC ####[facility] Gdagtbtyvx659[address] [place], [place] [address]Dr. Amina Escobar NEUT # 5.3 103/ul Normal 1.4-6.5 [facility] Comment on above: Performed By: #### C BC ####[facility] Kpccuhxomh[address] [place] [address]Dr. Amina Escobar Neutrophils/100 WBC (Bld) 76.7 % Critically high 43.0-75.0 [facility] Comment on above: Performed By: #### C BC ####[facility] Yqutzwqscn88[address] [place] [address]Dr. Amina Escobar Platelet mean volume (Bld) [Entitic vol] 9.7 fL Normal 9.5-13.5 [facility] Comment on above: Performed By: #### C BC ####[facility] Lmfjgoemmt[address] [place], [place] [address]Dr. Amina Escobar PLT 216 103/ul Normal 150-450 [facility] Comment on above: Performed By: #### C BC ####[facility] Hnlwitgxmb15[address] [place], [place] [address]Dr. Amina Escobar RBC 2.84 106/ul Critically low 4.70-6.10 [facility] Comment on above: Performed By: #### C BC ####[facility] Amrwfdkkqo5749[address] [place], [place] [address]Dr. Amina Escobar WBC 6.9 103/ul Normal 4.0-11.0 [facility] Comment on above: Performed By: #### C BC ####[facility] Qxnnsslomh140[address] [place], [place] [address]Dr. Amina Escobar CBC AUTO DIFFon 06-10-2022 BASO # 0.0 103/ul Normal 0.0-0.1 [facility] Comment on above: Performed By: #### C BC ####[facility] Cqmhsyjciy[address] [place], [place] [address]Dr. Amina Escobar Basophils/100 WBC (Bld) 0.5 % Normal 0.2-2.0 [facility] Comment on above: Performed By: #### C BC ####[facility] Gfobmvghil[address] [place], [place] [address]Dr. Amina Escobar EO # 0.1 103/ul Normal 0.0-0.7 [facility] Comment on above: Performed By: #### C BC ####[facility] Pmasiyekaf[address] [place] [address]Dr. Amina Escobar Eosinophils/100 WBC (Bld) 2.2 % Normal 0.9-7.0 [facility] Comment on above: Performed By: #### C BC ####[facility] Veesbgnasu[address] [place], [place] [address]Dr. Amina Escobar Erythrocyte distribution width (RBC) [Ratio] 17.9 % Critically high 11.0-15.0 [facility] Comment on above: Performed By: #### C BC ####[facility] Mocirharqg[address] [place], [place] [address]Dr. Amina Escobar Hematocrit (Bld) [Volume fraction] 24.5 % Critically low 42.0-54.0 [facility] Comment on above: Performed By: #### C BC ####[facility] Jnaxwrecod[address] [place], [place] [address]Dr. Amina Escobar Hemoglobin (Bld) [Mass/Vol] 7.9 g/dL Critically low 14.0-18.0 [facility] Comment on above: Performed By: #### C BC ####[facility] Smnhhllzat[address] [place], [place] [address]Dr. Amina Escobar IG # 0.02 10e3/ul Normal 0.00-0.03 [facility] Comment on above: Performed By: #### C BC ####[facility] Nzcgrksuqg0025[address] [place], [place] [address]Dr. Amina Escobar IG % 0.3 % Normal 0.0-0.5 [facility] Comment on above: Performed By: #### C BC ####[facility] Lwflrqcozb[address] [place], [place] [address]Dr. Amina Escobar LYMPH # 0.8 103/ul Critically low 1.2-3.8 [facility] Comment on above: Performed By: #### C BC ####[facility] Qqxlndyqoi[address] [place], [place] [address]Dr. Amina Escobar Lymphocytes/100 WBC (Bld) 12.3 % Critically low 20.5-60.0 [facility] Comment on above: Performed By: #### C BC ####[facility] Mr[address]bwzzsg[address] [place] [id number]. Amina Escobar MANUAL DIFF REQ NO Normal [facility] Comment on above: Performed By: #### C BC ####[facility] E[address]zquekkq4[address] [place] [id number]. Amina Escobar MCH (RBC) [Entitic mass] 31.6 pg Normal 25.9-34.0 [facility] Comment on above: Performed By: #### C BC ####[facility] Tqxuqkweoi8135 [place] [address]Dr. Amina Escobar MCHC (RBC) [Mass/Vol] 32.2 g/dL Normal 29.9-35.2 [facility] Comment on above: Performed By: #### C BC ####[facility] Idnqdpjbpc9498 [place] [address]Dr. Amina Escobar MCV (RBC) [Entitic vol] 98.0 fL Critically high 80.0-94.0 [facility] Comment on above: Performed By: #### C BC ####[facility] Zpfrpppqwp94[address] [place], [place] [address]Dr. Amina Shawn MONO # 0.5 103/ul Normal 0.3-0.8 [facility] Comment on above: Performed By: #### C BC ####[facility] Fcrwivkgoh[address] [place], [place] [address]Dr. Kandielda Escobar Monocytes/100 WBC (Bld) 8.6 % Normal 1.7-12.0 [facility] Comment on above: Performed By: #### C BC ####[facility] Nrodumbill[address] [place], [place] [address]Dr. Amina Escobar NEUT # 4.8 103/ul Normal 1.4-6.5 [facility] Comment on above: Performed By: #### C BC ####[facility] Ufdhiiohjs[address] [place], [place] [address]Dr. Kandielda Escobar Neutrophils/100 WBC (Bld) 76.1 % Critically high 43.0-75.0 [facility] Comment on above: Performed By: #### C BC ####[facility] Uvqrltzyxn66[address] [place] [id number]. Amina Escobar Platelet mean volume (Bld) [Entitic vol] 10.4 fL Normal 9.5-13.5 [facility] Comment on above: Performed By: #### C BC ####[facility] Fqnmmphzyo0638 [place] [id number]. Amina Escobar PLT 206 103/ul Normal 150-450 [facility] Comment on above: Performed By: #### C BC ####[facility] Xzhulskfho[address] [place], [place] [address]Dr. Amina Escobar RBC 2.50 106/ul Critically low 4.70-6.10 [facility] Comment on above: Performed By: #### C BC ####[facility] Shuafyizdf[address] [place], [place] [address]Dr. Amina Escobar WBC 6.3 103/ul Normal 4.0-11.0 [facility] Comment on above: Performed By: #### C BC ####[facility] Gyrnzajaxf9[address] [place], [place] [address]Dr. Amina Escobar HEMOGLOBIN AND HEMATOCRITon 06-10-2022 Hematocrit (Bld) [Volume fraction] 27.8 % Critically low 42.0-54.0 [facility] Comment on above: Performed By: #### H GBHCT ####[facility] [address]ufaqgyfaz[address] [place] [address]Dr. Amina Escobar Hemoglobin (Bld) [Mass/Vol] 9.0 g/dL Critically low 14.0-18.0 [facility] Comment on above: Performed By: #### H GBHCT ####[facility] [address]zdlbjll[address] [place] [address]Dr. Amina Escobar CBC AUTO DIFFon 06-09-2022 BASO # 0.0 103/ul Normal 0.0-0.1 [facility] Comment on above: Performed By: #### C BC ####[facility] Ygagwnljpq5251 [place] [address]Dr. Amina Shawn Basophils/100 WBC (Bld) 0.6 % Normal 0.2-2.0 [facility] Comment on above: Performed By: #### C BC ####[facility] Bxkiukdmuc2242 [place] [address]Dr. Amina Escobar EO # 0.1 103/ul Normal 0.0-0.7 [facility] Comment on above: Performed By: #### C BC ####[facility] Klbdmnzxau3933 [place] [address]Dr. Kandielda Escobar Eosinophils/100 WBC (Bld) 1.8 % Normal 0.9-7.0 [facility] Comment on above: Performed By: #### C BC ####[facility] Qquddsglat[address] [place], [place] [address]Dr. Kandielda Escobar Erythrocyte distribution width (RBC) [Ratio] 16.9 % Critically high 11.0-15.0 [facility] Comment on above: Performed By: #### C BC ####[facility] Gqehtpltpq[address] [place], [place] [address]Dr. Kandielda Escobar Hematocrit (Bld) [Volume fraction] 21.2 % Critically low 42.0-54.0 [facility] Comment on above: Performed By: #### C BC ####[facility] Yidlpfydyt[address] [place], [place] [address]Dr. Amina Escobar Hemoglobin (Bld) [Mass/Vol] 6.4 g/dL Critically low 14.0-18.0 [facility] Comment on above: Performed By: #### C BC ####[facility] Jcmewmogij08[address] [place], [place] [address]Dr. Kandielda Escobar IG # 0.03 10e3/ul Normal 0.00-0.03 [facility] Comment on above: Performed By: #### C BC ####[facility] Goshzorawa169[address] [place], [place] [address]Dr. Kandielda Escobar IG % 0.5 % Normal 0.0-0.5 [facility] Comment on above: Performed By: #### C BC ####[facility] Likwisazwq[address] [place], [place] [address]DrMemo Escobar LYMPH # 0.6 103/ul Critically low 1.2-3.8 [facility] Comment on above: Performed By: #### C BC ####[facility] Fazacoahvm[address] [place] [address]Dr. Amina Escobar Lymphocytes/100 WBC (Bld) 8.9 % Critically low 20.5-60.0 [facility] Comment on above: Performed By: #### C BC ####[facility] Teudehixlk6086 [place] [address]DrMemo Escobar MANUAL DIFF REQ NO Normal [facility] Comment on above: Performed By: #### C BC ####[facility] Nrclivfupq5327 [place] [address]Dr. Amina Escobar MCH (RBC) [Entitic mass] 31.1 pg Normal 25.9-34.0 [facility] Comment on above: Performed By: #### C BC ####[facility] Mmxgugdyis07[address] [place], [place] [address]Dr. Amina Escobar MCHC (RBC) [Mass/Vol] 30.2 g/dL Normal 29.9-35.2 [facility] Comment on above: Performed By: #### C BC ####[facility] Cfmyocyijd396[address] [place], [place] [address]DrMemo Escobar MCV (RBC) [Entitic vol] 102.9 fL Critically high 80.0-94.0 [facility] Comment on above: Performed By: #### C BC ####[facility] Tsqqxvmjuk[address] [place], [place] [address]Dr. Amina Escobar MONO # 0.4 103/ul Normal 0.3-0.8 [facility] Comment on above: Performed By: #### C BC ####[facility] Uldbjiomwx50[address] [place], [place] [address]DrMemo Escobar Monocytes/100 WBC (Bld) 6.6 % Normal 1.7-12.0 [facility] Comment on above: Performed By: #### C BC ####[facility] J[address]mnyjrfp[address] [place], [place] [address]DrMemo Escobar NEUT # 5.4 103/ul Normal 1.4-6.5 [facility] Comment on above: Performed By: #### C BC ####[facility] Dflqimydll4872 [place] [id number]. Aimna Escobar Neutrophils/100 WBC (Bld) 81.6 % Critically high 43.0-75.0 [facility] Comment on above: Performed By: #### C BC ####[facility] Kruqqatnvu0039 [place] [id number]. Amina Escobar Platelet mean volume (Bld) [Entitic vol] 9.7 fL Normal 9.5-13.5 [facility] Comment on above: Performed By: #### C BC ####[facility] Aacjttoffl0820 [place] [address]Dr. Amina Escobar PLT 201 103/ul Normal 150-450 [facility] Comment on above: Performed By: #### C BC ####[facility] Eojydhaykr3337 [place] [id number]. Amina Escobar RBC 2.06 106/ul Critically low 4.70-6.10 [facility] Comment on above: Performed By: #### C BC ####[facility] Verkuisgdy[address] [place], [place] [id number]. Amina Escobar WBC 6.6 103/ul Normal 4.0-11.0 [facility] Comment on above: Performed By: #### C BC ####[facility] Lwmbhgqlsa33[address] [place] [id number]. Amina Escobar TYPE AND SCREENon 06-09-2022 TYPE AND SCREEN Negative Normal [facility] Comment on above: Performed By: #### T NS ####[facility] Zcwrwnxffa[address] [place], [place] [id number]. Amina Escobar CBC AUTO DIFFon 06-02-2022 BASO # 0.1 103/ul Normal 0.0-0.1 [facility] Comment on above: Performed By: #### C BC ####[facility] Qyausnzgih6239 [place] [id number]. Amina Escobar Basophils/100 WBC (Bld) 0.6 % Normal 0.2-2.0 [facility] Comment on above: Performed By: #### C BC ####[facility] Vmbftqdxfa0137 [place] [address]DrMemo mAina Escobar EO # 0.2 103/ul Normal 0.0-0.7 [facility] Comment on above: Performed By: #### C BC ####[facility] Gbzpppqdce2552 [place] [address]DrMemo Kandielda Escobar Eosinophils/100 WBC (Bld) 2.5 % Normal 0.9-7.0 [facility] Comment on above: Performed By: #### C BC ####[facility] Cjkhwluwjn[address] [place], [place] [address]Dr. Kandiedla Escobar Erythrocyte distribution width (RBC) [Ratio] 17.6 % Critically high 11.0-15.0 [facility] Comment on above: Performed By: #### C BC ####[facility] Ruabtaxhki[address] [place], [place] [address]DrMemo Escobar Hematocrit (Bld) [Volume fraction] 26.6 % Critically low 42.0-54.0 [facility] Comment on above: Performed By: #### C BC ####[facility] Fitiseuhzz[address] [place], [place] [address]DrMemo Kandielda Escobar Hemoglobin (Bld) [Mass/Vol] 8.2 g/dL Critically low 14.0-18.0 [facility] Comment on above: Performed By: #### C BC ####[facility] [address]jchvaicn[address] [place], [place] [address]DrMemo Escobar IG # 0.04 10e3/ul Critically high 0.00-0.03 [facility] Comment on above: Performed By: #### C BC ####[facility] Hbxsekzcln[address] [place], [place] [address]DrMemo Escobar IG % 0.5 % Normal 0.0-0.5 [facility] Comment on above: Performed By: #### C BC ####[facility] [address]xsovdoyvx[address] [place], [place] [address]DrMemo Escobar LYMPH # 0.7 103/ul Critically low 1.2-3.8 [facility] Comment on above: Performed By: #### C BC ####[facility] Hcqcltdklf2147 [place] [address]DrMemo Escobar Lymphocytes/100 WBC (Bld) 8.5 % Critically low 20.5-60.0 [facility] Comment on above: Performed By: #### C BC ####[facility] Smormuebpw9484 [place] [address]DrMemo Escobar MANUAL DIFF REQ NO Normal [facility] Comment on above: Performed By: #### C BC ####[facility] Tczauuidvn37[address] [place] [address]DrMemo Escobar MCH (RBC) [Entitic mass] 31.7 pg Normal 25.9-34.0 [facility] Comment on above: Performed By: #### C BC ####[facility] [address]cganrfuty0[address] [place], [place] [address]DrMemo Escobar MCHC (RBC) [Mass/Vol] 30.8 g/dL Normal 29.9-35.2 [facility] Comment on above: Performed By: #### C BC ####[facility] [address]ifcgayly[address] [place], [place] [address]DrMemo Escobar MCV (RBC) [Entitic vol] 102.7 fL Critically high 80.0-94.0 [facility] Comment on above: Performed By: #### C BC ####[facility] Djrvnpqazg[address] [place], [place] [address]DrMemo Escobar MONO # 0.6 103/ul Normal 0.3-0.8 [facility] Comment on above: Performed By: #### C BC ####[facility] Yuvdnzpfze[address] [place], [place] [address]DrMemo Escobar Monocytes/100 WBC (Bld) 8.0 % Normal 1.7-12.0 [facility] Comment on above: Performed By: #### C BC ####[facility] Dkyltttewu[address] [place], [place] [address]DrMemo Escobar NEUT # 6.4 103/ul Normal 1.4-6.5 [facility] Comment on above: Performed By: #### C BC ####[facility] Uvyiytlmxd17[address] [place] [address]Dr. Amina Escobar Neutrophils/100 WBC (Bld) 79.9 % Critically high 43.0-75.0 [facility] Comment on above: Performed By: #### C BC ####[facility] Iafcpispbc65[address] [place], [place] [address]Dr. Amina Escobar Platelet mean volume (Bld) [Entitic vol] 10.1 fL Normal 9.5-13.5 [facility] Comment on above: Performed By: #### C BC ####[facility] Lxeqcrozln37[address] [place], [place] [address]Dr. Amina Escobar PLT 211 103/ul Normal 150-450 [facility] Comment on above: Performed By: #### C BC ####[facility] Cvaygxwrrk[address] [place], [place] [address]Dr. Amina Escobar RBC 2.59 106/ul Critically low 4.70-6.10 [facility] Comment on above: Performed By: #### C BC ####[facility] Tmelwrijfb2440[address] [place], [place] [address]Dr. Amina Escobar WBC 8.0 103/ul Normal 4.0-11.0 [facility] Comment on above: Performed By: #### C BC ####[facility] Vyfwqvvtbq24[address] [place], [place] [address]Dr. Amina Escobar CBC W MANUAL DIFFon 05-28-20 22 ANISOCYTOSIS 1+ Normal [facility] Comment on above: Performed By: #### C BCMAN ####[facility] Puzbabiico[address] [place] [address]Dr. Amina Shawn ATYPICAL LYMPH # Normal [facility] Comment on above: Performed By: #### C BCMAN ####[facility] Cprntvlhik4[address] [place] [address]Dr. Amina Shawn ATYPICAL LYMPH % Normal [facility] Comment on above: Performed By: #### C BCMAN ####[facility] Tracxlnlmq5[address] [place] [address]Dr. Yilan Escobar BAND # 0.0 103/ul Normal 0.0-0.3 [facility] Comment on above: Performed By: #### C BCKELLY ####[facility] Ghndpkvfgz6919 [place] [address]Dr. Yilan Escobar BAND % 0 % Normal 0-5 [facility] Comment on above: Performed By: #### C BCKELLY ####[facility] Wjbmtwwbej24[address] [place], [place] [address]Dr. Yilan Escobar BASOM # 0.06 103/ul Normal 0.00-0.10 [facility] Comment on above: Performed By: #### C ALEX ####[facility] Ufhbddyavq25[address] [place], [place] [address]Dr. Yielda Escobar BASOM % 1.0 % Normal 0.2-2.0 [facility] Comment on above: Performed By: #### C ALEX ####[facility] Gmtocivafv[address] [place], [place] [address]Dr. Yilan Escobar BLAST # Normal [facility] Comment on above: Performed By: #### C ALEX ####[facility] Omebngirpl[address] [place], [place] [address]Dr. Yilan Escobar BLAST % Normal [facility] Comment on above: Performed By: #### C ALEX ####[facility] Yqwrwxczuk7[address] [place], [place] [address]Dr. Yilan Escobar CORRECTED WBC Normal 4.0-11.0 [facility] Comment on above: Performed By: #### C ALEX ####[facility] Tismyqgfbl99[address] [place], [place] [address]Dr. Yilan Escobar EOS # 0.06 103/ul Normal 0.00-0.70 [facility] Comment on above: Performed By: #### C ALEX ####[facility] Pnuvrdmwpf[address] [place], [place] [address]Dr. Yilan Escobar EOS% 1.0 % Normal 0.9-7.0 [facility] Comment on above: Performed By: #### C ALEX ####[facility] Squimorgrw[address] [place] [id number]. Amina Escobar HCT 26.6 % Critically low 42.0-54.0 [facility] Comment on above: Performed By: #### C ALEX ####[facility] Seychbjxhz1178 [place] [id number]. Amina Escobar HGB 8.5 g/dl Critically low 14.0-18.0 [facility] Comment on above: Performed By: #### C ALEX ####[facility] Tcxyrhohqe37[address] [place] [id number]. Amina Escobar HYPOCHROMASIA 1+ Normal [facility] Comment on above: Performed By: #### C ALEX ####[facility] Yaiouikqil7[address] [place] [id number]. Amina Escobar LYMPHM # 0.93 103/ul Critically low 1.20-3.80 [facility] Comment on above: Performed By: #### C ALEX ####[facility] Ojxjlfgdyj37[address] [place] [id number]. Amina Escobar LYMPHM% 15.0 % Critically low 20.5-60.0 [facility] Comment on above: Performed By: #### C ALEX ####[facility] Ixemonnxqx9898 [place] [id number]. Amina Escobar MCH 31.3 pg Normal 25.9-34.0 [facility] Comment on above: Performed By: #### C ALEX ####[facility] Wjorfbjyff0231 [place] [id number]. Amina Escobar MCHC 32.0 g/dl Normal 29.9-35.2 [facility] Comment on above: Performed By: #### C ALEX ####[facility] Imnsupbvkg9213 [place] [id number]. Amina Escobar MCV 97.8 fL Critically high 80.0-94.0 [facility] Comment on above: Performed By: #### C ALEX ####[facility] Obqwjcfabu0702 [place] [id number]. Amina Escobar METAMYELOCYTE # Normal [facility] Comment on above: Performed By: #### Florence JOHNSON ####[facility] Atrnufcejg5[address] [place] [id number]. Amina Escobar METAMYELOCYTE % Normal [facility] Comment on above: Performed By: #### C ALEX ####[facility] Livszmawdt1076 [place] [id number]. Amina Escobar MONOM# 0.50 103/ul Normal 0.30-0.80 [facility] Comment on above: Performed By: #### C AELX ####[facility] Vcgcdzobgi3156 [place] [id number]. Amina Escobar MONOM% 8.0 % Normal 1.7-12.0 [facility] Comment on above: Performed By: #### Florence JOHNSON ####[facility] Zzkgodkgum3007 [place] [id number]. Amina Escobar MPV 10.2 fL Normal 9.5-13.5 [facility] Comment on above: Performed By: #### Florence JOHNSON ####[facility] Anpdamdvqx8297 [place] [id number]. Amina Escobar MYELOCYTE # Normal [facility] Comment on above: Performed By: #### Florence JOHNSON ####[facility] Wedqynfclw1890 [place] [id number]. Amina Escobar MYELOCYTE % Normal [facility] Comment on above: Performed By: #### Florence JOHNSON ####[facility] Rvzruovmfq6189 [place] [id number]. Amina Escobar NRBC Normal [facility] Comment on above: Performed By: #### Florence JOHNSON ####[facility] Ndwhnestbr7119 [place] [id number]. Amina Escobar PLT 194 103/ul Normal 150-450 [facility] Comment on above: Performed By: #### Florence JOHNSON ####[facility] Kuthnnbhrp0295 [place] [id number]. Kandielda Escobar RBC 2.72 106/ul Critically low 4.70-6.10 [facility] Comment on above: Performed By: #### C ALEX ####[facility] Kbpfqbkvsd2018 [place] [id number]. Amina Escobar RDW 18.6 % Critically high 11.0-15.0 [facility] Comment on above: Performed By: #### C ALEX ####[facility] Ysgrtnlovs8241 [place] [id number]. Amina Escobar SEG # 4.65 103/ul Normal 1.40-6.50 [facility] Comment on above: Performed By: #### C ALEX ####[facility] Xxjpqsfcad8284 [place] [id number]. Amina Escobar SEG % 75.0 % Normal 43.0-75.0 [facility] Comment on above: Performed By: #### C ALEX ####[facility] Qjjoyfrwnf[address] [place], [place] [id number]. Amina Escobar WBC 6.2 103/ul Normal 4.0-11.0 [facility] Comment on above: Performed By: #### C ALEX ####[facility] Mpzbusnpkg[address] [place], [place] [id number]. Amina Escobar TYPE AND SCREENon 05-28-2022 TYPE AND SCREEN Negative Normal [facility] Comment on above: Performed By: #### T NS ####[facility] Gzcfbkdjjr24[address] [place], [place] [id number]. Amina Escobar CBC AUTO DIFFon 05-26-2022 BASO # 0.1 103/ul Normal 0.0-0.1 [facility] Comment on above: Performed By: #### C BC ####[facility] Ormwmarpop020[address] [place], [place] [id number]. Amina Escobar Basophils/100 WBC (Bld) 0.7 % Normal 0.2-2.0 [facility] Comment on above: Performed By: #### C BC ####[facility] Lmiblfhesw6034[address] [place], [place] [id number]. Amina Escobar EO # 0.2 103/ul Normal 0.0-0.7 [facility] Comment on above: Performed By: #### C BC ####[facility] Tagwiyieof26[address] [place] [address]Dr. Amina Escobar Eosinophils/100 WBC (Bld) 3.0 % Normal 0.9-7.0 [facility] Comment on above: Performed By: #### C BC ####[facility] Wuafaqqhby0720 [place] [address]Dr. Amina Escobar Erythrocyte distribution width (RBC) [Ratio] 18.9 % Critically high 11.0-15.0 [facility] Comment on above: Performed By: #### C BC ####[facility] Jghvnxdszw9207[address] [place], [place] [address]Dr. Amina Escobar Hematocrit (Bld) [Volume fraction] 25.5 % Critically low 42.0-54.0 [facility] Comment on above: Performed By: #### C BC ####[facility] Lklnmevqle2019[address] [place], [place] [address]Dr. Amina Escobar Hemoglobin (Bld) [Mass/Vol] 7.5 g/dL Critically low 14.0-18.0 [facility] Comment on above: Performed By: #### C BC ####[facility] Cmxzcinmdj5914[address] [place], [place] [address]Dr. Amina Escobar IG # 0.03 10e3/ul Normal 0.00-0.03 [facility] Comment on above: Performed By: #### C BC ####[facility] Qqlkslsbvd6039[address] [place], [place] [address]Dr. Amina Escobar IG % 0.4 % Normal 0.0-0.5 [facility] Comment on above: Performed By: #### C BC ####[facility] Qrnlnfmoao4[address] [place], [place] [address]Dr. Amina Escobar LYMPH # 0.8 103/ul Critically low 1.2-3.8 [facility] Comment on above: Performed By: #### C BC ####[facility] Plulkjcsrd4567[address] [place], [place] [address]Dr. Amina Escobar Lymphocytes/100 WBC (Bld) 10.4 % Critically low 20.5-60.0 [facility] Comment on above: Performed By: #### C BC ####[facility] Ycjrqwcssq4858 [place] [address]Dr. Amina Escobar MANUAL DIFF REQ NO Normal [facility] Comment on above: Performed By: #### C BC ####[facility] Cgvumlxsdg2260 [place] [id number]. Amina Escobar MCH (RBC) [Entitic mass] 29.8 pg Normal 25.9-34.0 [facility] Comment on above: Performed By: #### C BC ####[facility] Hdfaxsasqw5894 [place] [address]Dr. Amina Escobar MCHC (RBC) [Mass/Vol] 29.4 g/dL Critically low 29.9-35.2 [facility] Comment on above: Performed By: #### C BC ####[facility] Wfjkeaplcn[address] [place], [place] [address]Dr. Amina Escobar MCV (RBC) [Entitic vol] 101.2 fL Critically high 80.0-94.0 [facility] Comment on above: Performed By: #### C BC ####[facility] Nkoboxzrxj6[address] [place], [place] [address]Dr. Amina Escobar MONO # 0.6 103/ul Normal 0.3-0.8 [facility] Comment on above: Performed By: #### C BC ####[facility] Xyvonmtlid615[address] [place], [place] [address]Dr. Amina Escobar Monocytes/100 WBC (Bld) 8.0 % Normal 1.7-12.0 [facility] Comment on above: Performed By: #### C BC ####[facility] Dxvteuebbe834[address] [place], [place] [address]DrMemo Escobar NEUT # 5.7 103/ul Normal 1.4-6.5 [facility] Comment on above: Performed By: #### C BC ####[facility] Ktrsgspomv5564[address] [place], [place] [address]Dr. Amina Escobar Neutrophils/100 WBC (Bld) 77.5 % Critically high 43.0-75.0 [facility] Comment on above: Performed By: #### C BC ####[facility] Bzlyidpzjj1719 [place] [address]Dr. Amina Escobar Platelet mean volume (Bld) [Entitic vol] 10.2 fL Normal 9.5-13.5 [facility] Comment on above: Performed By: #### C BC ####[facility] Hxjdaoguwh9113 [place] [address]Dr. Amina Escobar PLT 215 103/ul Normal 150-450 [facility] Comment on above: Performed By: #### C BC ####[facility] Duhwzsnagq[address] [place], [place] [address]Dr. Amina Escobar RBC 2.52 106/ul Critically low 4.70-6.10 [facility] Comment on above: Performed By: #### C BC ####[facility] Cxyuzvjenq4625[address] [place], [place] [address]Dr. Amina Escobar WBC 7.3 103/ul Normal 4.0-11.0 [facility] Comment on above: Performed By: #### C BC ####[facility] Wbluuxkfdk05[address] [place], [place] [address]Dr. Amina Escobar IRON AND TIBCon 05-26-2022 % SATURATION 13.6 % Normal [facility] Comment on above: Performed By: #### F ETIBC ####[facility] Bsmqyklruv[address] [place], [place] [address]Dr. Amina Escobar Iron [Mass/Vol] 36.0 ug/dL Critically low 65.0-175.0 [facility] Comment on above: Performed By: #### F ETIBC ####[facility] Ryqgajldzs01[address] [place], [place] [address]Dr. mAina Escobar TIBC DIRECT 265.0 ug/dL Normal 250.0-450. 0 [facility] Comment on above: Performed By: #### F ETIBC ####[facility] Snuhnqlwre86[address] [place], [place] [address]Dr. Amina Escobar HEMOGLOBINon 05-18-2022 Hemoglobin (Bld) [Mass/Vol] 8.1 g/dL Critically low 14.0-18.0 [facility] Comment on above: Performed By: #### H GB ####[facility] Tjkaooadmx4711 [place] [address]Dr. Amina Shawn CBC W MANUAL DIFFon 05-09-20 22 ATYPICAL LYMPH # Normal [facility] Comment on above: Performed By: #### C ALEX ####[facility] Ftrdkirnoc8805 [place] [address]Dr. Amina Escobar ATYPICAL LYMPH % Normal [facility] Comment on above: Performed By: #### C ALEX ####[facility] Vpqbvezglw1647 [place] [address]Dr. Amina Shawn BAND # 0.0 103/ul Normal 0.0-0.3 [facility] Comment on above: Performed By: #### C ALEX ####[facility] Wattctvqml52[address] [place], [place] [address]Dr. Amina Escobar BAND % 0 % Normal 0-5 [facility] Comment on above: Performed By: #### C ALEX ####[facility] Raphqbgxoe94[address] [place], [place] [address]Dr. Amina Shawn BASOM # 0.00 103/ul Normal 0.00-0.10 [facility] Comment on above: Performed By: #### C ALEX ####[facility] Wmksdvdztw[address] [place], [place] [address]Dr. Kandielda Escobar BASOM % 0.0 % Critically low 0.2-2.0 [facility] Comment on above: Performed By: #### C ALEX ####[facility] Lygwefarey[address] [place], [place] [address]Dr. Amina Escobar BLAST # Normal [facility] Comment on above: Performed By: #### C ALEX ####[facility] Cphoaqjfnk[address] [place], [place] [address]Dr. Amina Escobar BLAST % Normal [facility] Comment on above: Performed By: #### C ALEX ####[facility] Tkxjusrayp[address] [place], [place] [address]Dr. Amina Escobar CORRECTED WBC Normal 4.0-11.0 [facility] Comment on above: Performed By: #### C ALEX ####[facility] Ddxcpcgzfk9257 [place], [place] [address]Wc. Amina Escobar EOS # 0.34 103/ul Normal 0.00-0.70 [facility] Comment on above: Performed By: #### C ALEX ####[facility] Cosxdkvzyq5167 [place], [place] [address]Vn. Amina Escobar EOS% 4.0 % Normal 0.9-7.0 [facility] Comment on above: Performed By: #### C ALEX ####[facility] Xmtxjnnjrc7493 [place], [place] [address]Lb. Amina Escobar HCT 28.2 % Critically low 42.0-54.0 [facility] Comment on above: Performed By: #### C ALEX ####[facility] Rdbysaoeuy4709 [place] [id number]. Amina Escobar HGB 8.8 g/dl Critically low 14.0-18.0 [facility] Comment on above: Performed By: #### Florence JOHNSON ####[facility] Pnsuwcmgif4567 [place] [id number]. Amina Escobar LYMPHM # 0.17 103/ul Critically low 1.20-3.80 [facility] Comment on above: Performed By: #### Florence JOHNSON ####[facility] Akpbemonoe2343 [place] [id number]. Amina Escobar LYMPHM% 2.0 % Critically low 20.5-60.0 [facility] Comment on above: Performed By: #### C ALEX ####[facility] Athqatsytw0147 [place], [place] [address]Nz. Amina Escobar MCH 29.2 pg Normal 25.9-34.0 [facility] Comment on above: Performed By: #### C ALEX ####[facility] Zbcyfunaxp6214 [place], [place] [address]Pd. Amina Escobar MCHC 31.2 g/dl Normal 29.9-35.2 [facility] Comment on above: Performed By: #### C ALEX ####[facility] Daohyuttko2182 [place] [id number]. Amina Escobar MCV 93.7 fL Normal 80.0-94.0 [facility] Comment on above: Performed By: #### C ALEX ####[facility] Cfkweuyrtd1312 [place] [id number]. Amina Escobar METAMYELOCYTE # Normal [facility] Comment on above: Performed By: #### C ALEX ####[facility] Pphfxuinhf2381 [place] [address]Dr. Amina Escobar METAMYELOCYTE % Normal [facility] Comment on above: Performed By: #### C ALEX ####[facility] Wlcyleyslw[address] [place], [place] [address]Dr. Amina Escobar MONOM# 0.26 103/ul Critically low 0.30-0.80 [facility] Comment on above: Performed By: #### C ALEX ####[facility] Fhnqvleimc[address] [place], [place] [address]Dr. Amina Escobar MONOM% 3.0 % Normal 1.7-12.0 [facility] Comment on above: Performed By: #### Florence JOHNSON ####[facility] Xcdnfxpgjs178[address] [place], [place] [address]Dr. Amina Escobar MPV 9.9 fL Normal 9.5-13.5 [facility] Comment on above: Performed By: #### C ALEX ####[facility] Ypkxaipako026[address] [place], [place] [address]Dr. Amina Escobar MYELOCYTE # Normal [facility] Comment on above: Performed By: #### C ALEX ####[facility] Xodmhjkieu55[address] [place], [place] [address]Dr. Amina Escobar MYELOCYTE % Normal [facility] Comment on above: Performed By: #### C ALEX ####[facility] Wtzsqayowg[address] [place], [place] [address]Dr. Amina Escobar NRBC Normal [facility] Comment on above: Performed By: #### C ALEX ####[facility] Kfchyegyzx5453 [place] [id number]. Amina Escobar OVALOCYTES 2+ Normal [facility] Comment on above: Performed By: #### C ALEX ####[facility] Qwkmtlvjzr7776 [place] [id number]. Amina Escobar PLT 287 103/ul Normal 150-450 [facility] Comment on above: Performed By: #### C ALEX ####[facility] Ietiimouhb0080 [place] [id number]. Amina Escobar RBC 3.01 106/ul Critically low 4.70-6.10 [facility] Comment on above: Performed By: #### C ALEX ####[facility] Clpybkedli6662 [place] [address]Dr. Amina Escobar RDW 18.6 % Critically high 11.0-15.0 [facility] Comment on above: Performed By: #### C ALEX ####[facility] Ynbxoqrgaq12[address] [place], [place] [address]Dr. Amina Escobar SCHISTOCYTES SLIGHT Normal [facility] Comment on above: Performed By: #### C ALEX ####[facility] Dqmtuwfhdn930[address] [place], [place] [address]Dr. Amina Escobar SEG # 7.74 103/ul Critically high 1.40-6.50 [facility] Comment on above: Performed By: #### C ALEX ####[facility] Bllkdnxzdk8[address] [place], [place] [address]Dr. Amina Escobar SEG % 91.0 % Critically high 43.0-75.0 [facility] Comment on above: Performed By: #### C ALEX ####[facility] Bcfsfrxssp6595 [place] [address]Dr. Amina Escobar TOXIC GRANULATION 1+ Normal [facility] Comment on above: Performed By: #### C ALEX ####[facility] Kcbjbwlloc1596 [place] [address]Dr. Amina Escobra WBC 8.5 103/ul Normal 4.0-11.0 [facility] Comment on above: Performed By: #### C BCMAN ####[facility] Mwnovptaft46[address] [place], [place] [address]Dr. Amina Escobar ER URINE PROFILEon 2 Bilirubin Ql (U) Negative Normal NEGATIVE [facility] Comment on above: Performed By: #### E RUR ####[facility] Qclfapgziv9722[address] [place], [place] [address]Dr. Amina Escobar Clarity (U) CLEAR Normal CLEAR [facility] Comment on above: Performed By: #### E RUR ####[facility] Moakucwbki7[address] [place], [place] [address]Dr. Amina Escobar Color (U) LT. YELLOW Normal YELLOW [facility] Comment on above: Performed By: #### E RUR ####[facility] Otmcleicnt[address] [place], [place] [address]Dr. Amina Shawn ERUAHD A micrscopic examina tion will be performed if indicated. Normal [facility] Comment on above: Performed By: #### E RUR ####[facility] Blrdgajnbr[address] [place], [place] [address]Dr. Amina Escobar Glucose Ql (U) Negative Normal NEGATIVE [facility] Comment on above: Performed By: #### E RUR ####[facility] Uxwoccujie7[address] [place], [place] [address]Dr. Amina Escobar Hemoglobin Ql (U) Negative Normal NEGATIVE [facility] Comment on above: Performed By: #### E RUR ####[facility] Qalsffcnyp64[address] [place], [place] [address]Dr. Amina Escobar Ketones Ql (U) Negative Normal NEGATIVE [facility] Comment on above: Performed By: #### E RUR ####[facility] Zbdnnrmtqt4[address] [place], [place] [address]Dr. Kandilan Escobar LEUKOCYTES Negative Normal NEGATIVE [facility] Comment on above: Performed By: #### E RUR ####[facility] Ctfhfkqiac99[address] [place], [place] [address]Dr. Kandilan Escobar Nitrite Ql (U) Negative Normal NEGATIVE [facility] Comment on above: Performed By: #### E RUR ####[facility] Dw[address]knohvb[address] [place] [address]Dr. Amina Escobar pH (U) 5.5 [pH] Normal 5-9 [facility] Comment on above: Performed By: #### E RUR ####[facility] Manvxuclfi8[address] [place], [place] [address]Dr. Amina Escobar SPEC GRAVITY 1.010 Normal 1.005-<=1. 025 [facility] Comment on above: Performed By: #### E RUR ####[facility] Lupqautpnb9[address] [place], [place] [address]Dr. Amina Escobar UA PROTEIN Negative Normal NEGATIVE/ TRACE [facility] Comment on above: Performed By: #### E RUR ####[facility] Ugbuqudqer994[address] [place], [place] [address]Dr. Amina Escobar UR MICRO IND NOT INDICATED Normal [facility] Comment on above: Performed By: #### E RUR ####[facility] Eeexgpnnbi29[address] [place], [place] [address]Dr. Amina Escobar Urobilinogen Qn (U) 0.2 {Mel'U}/dL Normal 0.2 - 1. 0 [facility] Comment on above: Performed By: #### E RUR ####[facility] Gkgxjvrxmj[address] [place], [place] [address]Dr. Amina Escoabr FERRITINon 05-09-2022 Ferritin [Mass/Vol] 132.0 ng/mL Normal 26.0-388.0 [facility] Comment on above: Performed By: #### F ERR, FETIBC ####[facility] Krrxbovntg7[address] [place], [place] [address]Dr. Amina Escobar IRON AND TIBCon 05-09-2022 % SATURATION 11.4 % Normal [facility] Comment on above: Performed By: #### F ERR, FETIBC ####[facility] Kfoblfzuhq[address] [place], [place] [address]Dr. Kandielda Escobar Iron [Mass/Vol] 33.0 ug/dL Critically low 65.0-175.0 [facility] Comment on above: Performed By: #### F ERR, FETIBC ####[facility] V[address] [place] [id number]. Amina Escobar TIBC DIRECT 290.0 ug/dL Normal 250.0-450. 0 [facility] Comment on above: Performed By: #### F ERR, FETIBC ####[facility] Aczqdllzuj[address] [place] [address]Dr. Amina Escobar PROF 14(COMP METB)on 022 Albumin [Mass/Vol] 3.1 g/dL Critically low 3.4-5.0 Th e [facility] Comment on above: Performed By: #### C MP ####[facility] Enbwgitxap[address] [place] [address]Dr. Amina Escobar Albumin/Globulin [Mass ratio] 0.8 {ratio} Normal [facility] Comment on above: Performed By: #### C MP ####[facility] Lzcshsvsqj9[address] [place] [address]Dr. Amina Escobar ALP [Catalytic activity/Vol] 166 U/L Critically high 46-116 [facility] Comment on above: Performed By: #### C MP ####[facility] Jebshksoha[address] [place] [address]Dr. Amina Escobar ALT [Catalytic activity/Vol] 22 U/L Normal 16-63 [facility] Comment on above: Performed By: #### C MP ####[facility] Rgxlandzji88[address] [place] [address]Dr. Amina Escobar Anion gap [Moles/Vol] 12.5 mmol/L Normal [facility] Comment on above: Performed By: #### C MP ####[facility] Ktuhdbygbe34[address] [place] [address]Dr. Amina Escobar AST [Catalytic activity/Vol] 14 U/L Critically low 15-37 [facility] Comment on above: Performed By: #### C MP ####[facility] Klexzmuwqp7[address] [place] [address]Dr. Amina Escobar Bilirubin [Mass/Vol] 0.7 mg/dL Normal 0.2-1.0 [facility] Comment on above: Performed By: #### C MP ####[facility] Csonficrrt[address] [place] [id number]. Amina Escobar Calcium [Mass/Vol] 8.5 mg/dL Normal 8.5-10.1 [facility] Comment on above: Performed By: #### C MP ####[facility] Ntshtpdpsu23[address] [place] [id number]. Amina Escobar Chloride [Moles/Vol] 108 mmol/L Critically high 98-107 [facility] Comment on above: Performed By: #### C MP ####[facility] Pyzcvbeojk14[address] [place] [address]Dr. Amina Escobar CO2 [Moles/Vol] 25.7 mmol/L Normal 21.0-32.0 [facility] Comment on above: Performed By: #### C MP ####[facility] Jprsaowbai9[address] [place] [address]Dr. Amina Escobar Creatinine [Mass/Vol] 1.02 mg/dL Normal 0.70-1.30 [facility] Comment on above: Performed By: #### C MP ####[facility] Tsbjbetggd7[address] [place], [place] [address]Dr. Amina Escobar EGFR-AF MALAGASY >60 Normal >=60 [facility] Comment on above: Performed By: #### C MP ####[facility] Nsnwnpqtlm1022[address] [place], [place] [address]Dr. Amina Escobar EGFR-NON AF MALAGASY >60 Normal >=60 [facility] Comment on above: Performed By: #### C MP ####[facility] Kuuzvukvtj4[address] [place], [place] [address]Dr. Amina Escobar Globulin (S) [Mass/Vol] 3.7 g/dL Normal [facility] Comment on above: Performed By: #### C MP ####[facility] Lknbinltky6[address] [place], [place] [address]Dr. Amina Escobar Glucose [Mass/Vol] 97 mg/dL Normal 74-106 [facility] Comment on above: Performed By: #### C MP ####[facility] Prrphbyjot[address] [place], [place] [address]Dr. Amina Escobar Potassium [Moles/Vol] 4.2 mmol/L Normal 3.5-5.1 [facility] Comment on above: Performed By: #### C MP ####[facility] Lopliuuouh602[address] [place], [place] [address]Dr. Amina Escobar Protein [Mass/Vol] 6.8 g/dL Normal 6.4-8.2 [facility] Comment on above: Performed By: #### C MP ####[facility] Lanzqtakzw3425[address] [place], [place] [address]Dr. Amina Escobar Sodium [Moles/Vol] 142 mmol/L Normal 136-145 [facility] Comment on above: Performed By: #### C MP ####[facility] Ykmonzpich70[address] [place], [place] [address]Dr. Amina Escobar Urea nitrogen [Mass/Vol] 23.0 mg/dL Critically high 7.0-18.0 [facility] Comment on above: Performed By: #### C MP ####[facility] Fnysyvahcl[address] [place], [place] [address]Dr. Amina Escobar Urea nitrogen/Creatinine [Mass ratio] 22.5 mg/mg Normal [facility] Comment on above: Performed By: #### C MP ####[facility] Nqnsgbnzaw6839[address] [place], [place] [address]Dr. Amina Escobar PROTIMEon 05-09-2022 INR Coag (PPP) [Relative time] 1.16 {INR} Normal [facility] Comment on above: Performed By: #### P TT, PT ####[facility] Smtbnwseqw264[address] [place], [place] [address]Dr. Amina Escobar INR GUIDELINES SEE BELOW Normal [facility] Comment on above: Result Comment: LIMA RED INR: 2.0 - 3.0 CONDITIONS NOT LISTED BELOW 2.5 - 3.5 FOR PROSTHETIC HEART VALVE REPLACEMENT 2.5 - 3.5 RECURRENT THROMBOSIS Performed By: #### P TT, PT ####[facility] Ygsqjkhnuo6[address] [place], [place] [address]Dr. Amina Escobar PT Coag (PPP) [Time] 12.4 s Critically high 9.0-11.6 [facility] Comment on above: Performed By: #### P TT, PT ####[facility] Vpopoicnrj915[address] [place], [place] [address]Dr. Amina Escobar PTTon 05-09-2022 aPTT Coag (Bld) [Time] 27.7 s Normal 22.3-36.2 [facility] Comment on above: Performed By: #### P TT, PT ####[facility] Snqtdxgxdf324[address] [place], [place] [address]Dr. Kandielda Escobar VIT B12 AND FOLATEon 022 Cobalamin (Vitamin B12) [Mass/Vol] 403.0 pg/mL Normal 193.0-986. 0 [facility] Comment on above: Performed By: #### B 12FOL ####[facility] Lfdnmsirbh9339[address] [place], [place] [address]Dr. Amina Escobar FOLATE 10.00 ng/mL Normal 8.60-58.90 [facility] Comment on above: Performed By: #### B 12FOL ####[facility] Woonekqzka9059[address] [place], [place] [address]Dr. Amina Escobar NM GI BLEEDon 05-08-2022 NM GI BLEED Normal [facility] CBC W MANUAL DIFFon 05-06-20 22 ANISOCYTOSIS 1+ Normal [facility] Comment on above: Performed By: #### C ALEX ####[facility] Dalbsxiury654[address] [place], [place] [address]Dr. Amina Escobar ATYPICAL LYMPH # Normal [facility] Comment on above: Performed By: #### C ALEX ####[facility] Zrgiimqipj76[address] [place], [place] [address]Dr. Amina Escobar ATYPICAL LYMPH % Normal [facility] Comment on above: Performed By: #### C MIGDALIAMAN ####[facility] Nkgxxtihgt735[address] [place], [place] [address]Dr. Amina Escobar BAND # Normal 0.0-0.3 [facility] Comment on above: Performed By: #### C ALEX ####[facility] Wpiqrmeupo267[address] [place], [place] [address]Dr. Amina Escobar BAND % Normal 0-5 [facility] Comment on above: Performed By: #### C BCKELLY ####[facility] Opstgttsph[address] [place] [address]Dr. Amina Escobar BASOM # 0.00 103/ul Normal 0.00-0.10 [facility] Comment on above: Performed By: #### C BCKELLY ####[facility] Pxadvijnyf[address] [place] [address]Dr. Amina Escobar BASOM % 0.0 % Critically low 0.2-2.0 [facility] Comment on above: Performed By: #### C BCKELLY ####[facility] Nnhiuitseu[address]24[address] [place], [place] [address]Dr. Amina Escobar BLAST # Normal [facility] Comment on above: Performed By: #### C ALEX ####[facility] Ntzsjidoae[address] [place], [place] [address]Dr. Amina Escobar BLAST % Normal [facility] Comment on above: Performed By: #### C ALEX ####[facility] Bqatpxlzdm[address] [place], [place] [address]Dr. Amina Escobar CORRECTED WBC Normal 4.0-11.0 [facility] Comment on above: Performed By: #### C BCKELLY ####[facility] Crtndrbfim260[address] [place], [place] [address]Dr. Amina Escobar EOS # 0.39 103/ul Normal 0.00-0.70 [facility] Comment on above: Performed By: #### C BCKELLY ####[facility] Kecnaimyzv[address] [place], [place] [address]Dr. Amina Escobar EOS% 5.0 % Normal 0.9-7.0 [facility] Comment on above: Performed By: #### C ALEX ####[facility] Jilpabnxcb[address] [place], [place] [address]Dr. Amina Escobar HCT 26.2 % Critically low 42.0-54.0 [facility] Comment on above: Performed By: #### C ALEX ####[facility] J[address]lnhxjaa[address] [place], [place] [id number]. Amina Escobar HGB 8.1 g/dl Critically low 14.0-18.0 [facility] Comment on above: Performed By: #### [place] JOHNSON ####[facility] Btzibbcbbs4[address] [place] [id number]. Amina Escobar LYMPHM # 0.69 103/ul Critically low 1.20-3.80 [facility] Comment on above: Performed By: #### [place] JOHNSON ####[facility] Rzldomkfvb09[address] [place] [address]Dr. Amina Escobar LYMPHM% 9.0 % Critically low 20.5-60.0 [facility] Comment on above: Performed By: #### [place] JOHNSON ####[facility] Lpuatastgg[address] [place] [address]Dr. Amina Escobar MCH 29.1 pg Normal 25.9-34.0 [facility] Comment on above: Performed By: #### [place] JOHNSON ####[facility] Jeedifzpsa[address] [place] [address]Dr. Amina Escobar MCHC 30.9 g/dl Normal 29.9-35.2 [facility] Comment on above: Performed By: #### [place] JOHNSON ####[facility] Wzyqvjjywv24[address] [place] [address]Dr. Amina Escobar MCV 94.2 fL Critically high 80.0-94.0 [facility] Comment on above: Performed By: #### [place] JOHNSON ####[facility] Zimbqaqdvb[address] [place] [address]Dr. Amina Escobar METAMYELOCYTE # Normal [facility] Comment on above: Performed By: #### [place] JOHNSON ####[facility] Kdilvcveqd9[address] [place] [id number]. Amina Escobar METAMYELOCYTE % Normal [facility] Comment on above: Performed By: #### C ALEX ####[facility] Uicqxjtxwz72[address] [place] [address]Dr. Amina Escobar MONOM# 0.31 103/ul Normal 0.30-0.80 [facility] Comment on above: Performed By: #### C ALEX ####[facility] Obtszynean[address] [place], [place] [address]Mg. Amina Escobar MONOM% 4.0 % Normal 1.7-12.0 [facility] Comment on above: Performed By: #### C ALEX ####[facility] Cteliuwxyc2305 [place], [place] [address]Fh. Amina Escobar MPV 9.7 fL Normal 9.5-13.5 [facility] Comment on above: Performed By: #### C ALEX ####[facility] Beerqalxld6603 [place], [place] [address]Gb. Amina Escobar MYELOCYTE # Normal [facility] Comment on above: Performed By: #### C ALEX ####[facility] Bvqjvukbiy5[address] [place] [id number]. Amina Escobar MYELOCYTE % Normal [facility] Comment on above: Performed By: #### C ALEX ####[facility] Gwizdkhuvh87[address] [place] [id number]. Amina Escobar NRBC Normal [facility] Comment on above: Performed By: #### C ALEX ####[facility] Obvjanumad64[address] [place] [id number]. Amina Escobar PLT 236 103/ul Normal 150-450 [facility] Comment on above: Performed By: #### C ALEX ####[facility] Kancusjpwz5[address] [place] [id number]. Amina Escobar RBC 2.78 106/ul Critically low 4.70-6.10 [facility] Comment on above: Performed By: #### C ALEX ####[facility] Qmpkygljjx9816 [place] [id number]. Amina Escobar RDW 19.4 % Critically high 11.0-15.0 [facility] Comment on above: Performed By: #### C ALEX ####[facility] Mdggaopgfl0953 [place] [id number]. Amina Escobar SEG # 6.31 103/ul Normal 1.40-6.50 [facility] Comment on above: Performed By: #### C BCMAN ####[facility] Vkdwhoboum13[address] [place] [id number]. Amina Escobar SEG % 82.0 % Critically high 43.0-75.0 [facility] Comment on above: Performed By: #### C BCMAN ####[facility] Fwxikloeml0933 [place] [id number]. Amina Escobar WBC 7.7 103/ul Normal 4.0-11.0 [facility] Comment on above: Performed By: #### C BCMAN ####[facility] Kouqpjkkvy74[address] [place] [address]Dr. Amina Escobar IRONon 05-06-2022 Iron [Mass/Vol] 27.0 ug/dL Critically low 65.0-175.0 [facility] Comment on above: Performed By: #### I PHIL ####[facility] Rpxozejpct[address] [place], [place] [address]Dr. Amina Escobar CBC AUTO DIFFon 04-29-2022 BASO # 0.0 103/ul Normal 0.0-0.1 [facility] Comment on above: Performed By: #### C BC ####[facility] Vrctmvulzc496[address] [place], [place] [address]Dr. Amina Escobar Basophils/100 WBC (Bld) 0.5 % Normal 0.2-2.0 [facility] Comment on above: Performed By: #### C BC ####[facility] Gldthshuvo510[address] [place], [place] [address]Dr. Amina Escobar EO # 0.3 103/ul Normal 0.0-0.7 [facility] Comment on above: Performed By: #### C BC ####[facility] Bebvxucqyc023[address] [place], [place] [address]Dr. Amina Escobar Eosinophils/100 WBC (Bld) 3.6 % Normal 0.9-7.0 [facility] Comment on above: Performed By: #### C BC ####[facility] Qnvgrubfoj4357[address] [place], [place] [address]Dr. Amina Escobar Erythrocyte distribution width (RBC) [Ratio] 20.5 % Critically high 11.0-15.0 [facility] Comment on above: Performed By: #### C BC ####[facility] Ceakddzvar[address] [place] [address]DrMemo Escobar Hematocrit (Bld) [Volume fraction] 30.0 % Critically low 42.0-54.0 [facility] Comment on above: Performed By: #### C BC ####[facility] Rsxfazdlws[address] [place], [place] [address]DrMemo Escobar Hemoglobin (Bld) [Mass/Vol] 9.3 g/dL Critically low 14.0-18.0 [facility] Comment on above: Performed By: #### C BC ####[facility] Zdumhhmeyx8[address] [place], [place] [address]DrMemo Escobar IG # 0.04 10e3/ul Critically high 0.00-0.03 [facility] Comment on above: Performed By: #### C BC ####[facility] Gszmkfcbvh546[address] [place], [place] [address]DrMemo Escobar IG % 0.5 % Normal 0.0-0.5 [facility] Comment on above: Performed By: #### C BC ####[facility] Asmlbusntl655[address] [place], [place] [address]DrMemo Escobar LYMPH # 0.6 103/ul Critically low 1.2-3.8 [facility] Comment on above: Performed By: #### C BC ####[facility] Ffkvxdlifr7[address] [place], [place] [address]DrMemo Escobar Lymphocytes/100 WBC (Bld) 7.6 % Critically low 20.5-60.0 [facility] Comment on above: Performed By: #### C BC ####[facility] Zzhlzqpvvt[address] [place], [place] [address]DrMemo Escobar MANUAL DIFF REQ NO Normal [facility] Comment on above: Performed By: #### C BC ####[facility] Gwlwfcngdg67[address] [place], [place] [address]DrMemo Escobar MCH (RBC) [Entitic mass] 29.0 pg Normal 25.9-34.0 [facility] Comment on above: Performed By: #### C BC ####[facility] Nyeughgwmh225[address] [place] [address]DrMemo Escobar MCHC (RBC) [Mass/Vol] 31.0 g/dL Normal 29.9-35.2 [facility] Comment on above: Performed By: #### C BC ####[facility] Jbytdkzwnb4[address] [place] [address]DrMemo Escobar MCV (RBC) [Entitic vol] 93.5 fL Normal 80.0-94.0 [facility] Comment on above: Performed By: #### C BC ####[facility] Btntmyzqof01[address] [place], [place] [address]DrMemo Escobar MONO # 0.7 103/ul Normal 0.3-0.8 [facility] Comment on above: Performed By: #### C BC ####[facility] Lqvaojihhu[address] [place], [place] [address]DrMemo Escobar Monocytes/100 WBC (Bld) 7.9 % Normal 1.7-12.0 [facility] Comment on above: Performed By: #### C BC ####[facility] Oempcoozii1335[address] [place], [place] [address]DrMemo Escobar NEUT # 6.8 103/ul Critically high 1.4-6.5 [facility] Comment on above: Performed By: #### C BC ####[facility] Fkcnoiznda03[address] [place], [place] [address]DrMemo Escobar Neutrophils/100 WBC (Bld) 79.9 % Critically high 43.0-75.0 [facility] Comment on above: Performed By: #### C BC ####[facility] Bqoyrcjibp[address] [place], [place] [address]DrMemo Escobar Platelet mean volume (Bld) [Entitic vol] 10.4 fL Normal 9.5-13.5 [facility] Comment on above: Performed By: #### C BC ####[facility] Bemsbybyzm[address] [place], [place] [address]DrMemo Escobar PLT 202 103/ul Normal 150-450 [facility] Comment on above: Performed By: #### C BC ####[facility] Npzffxmcfu5[address] [place] [address]DrMemo Escobar RBC 3.21 106/ul Critically low 4.70-6.10 [facility] Comment on above: Performed By: #### C BC ####[facility] Kctnrzcuce75[address] [place], [place] [address]DrMemo Escobar WBC 8.5 103/ul Normal 4.0-11.0 [facility] Comment on above: Performed By: #### C BC ####[facility] Pgprydwdox[address] [place], [place] [address]DrMemo Escobra PROF CHEM 8 (BAS METB)on Anion gap [Moles/Vol] 9.1 mmol/L Normal [facility] Comment on above: Performed By: #### B MP ####[facility] Jiotizdahq65[address] [place], [place] [address]DrMemo Escobar Calcium [Mass/Vol] 8.0 mg/dL Critically low 8.5-10.1 Th e [facility] Comment on above: Performed By: #### B MP ####[facility] Cbkvsejjsv04[address] [place], [place] [address]DrMemo Escobar Chloride [Moles/Vol] 113 mmol/L Critically high 98-107 [facility] Comment on above: Performed By: #### B MP ####[facility] Kllbwnrzuc[address] [place], [place] [address]DrMemo Escobar CO2 [Moles/Vol] 26.1 mmol/L Normal 21.0-32.0 [facility] Comment on above: Performed By: #### B MP ####[facility] Dcmwsannxi9699[address] [place], [place] [address]DrMemo Escobar Creatinine [Mass/Vol] 1.33 mg/dL Critically high 0.70-1.30 [facility] Comment on above: Performed By: #### B MP ####[facility] Ywrlzbjyro[address] [place], [place] [address]DrMemo Escobar EGFR-AF MALAGASY >60 Normal >=60 [facility] Comment on above: Performed By: #### B MP ####[facility] Jpiabtzzrm[address] [place] [address]Dr. Amina Escobar EGFR-NON AF MALAGASY 51 mL/min/1.73m2 Critically low >=60 [facility] Comment on above: Performed By: #### B MP ####[facility] Txenxgptcn[address] [place] [address]Dr. Amina Escobar Glucose [Mass/Vol] 90 mg/dL Normal 74-106 [facility] Comment on above: Performed By: #### B MP ####[facility] Vapfsrbvoz[address] [place], [place] [address]Dr. Amina Escobar Potassium [Moles/Vol] 4.2 mmol/L Normal 3.5-5.1 [facility] Comment on above: Performed By: #### B MP ####[facility] Eojlvittyi79[address] [place], [place] [address]Dr. Amina Escobar Sodium [Moles/Vol] 144 mmol/L Normal 136-145 [facility] Comment on above: Performed By: #### B MP ####[facility] Bmtpnvcvjc[address] [place], [place] [address]Dr. Amina Escobar Urea nitrogen [Mass/Vol] 37.0 mg/dL Critically high 7.0-18.0 [facility] Comment on above: Performed By: #### B MP ####[facility] Wraftuyhuj8[address] [place], [place] [address]Dr. Amina Escobar Urea nitrogen/Creatinine [Mass ratio] 27.8 mg/mg Normal [facility] Comment on above: Performed By: #### B MP ####[facility] Fsynvtnjua07[address] [place], [place] [address]Dr. Amina Escobar PRBC LEUKOREDUCEDon 04-28-20 22 PRBC LEUKOREDUCED Normal [facility] Comment on above: Performed By: #### P RBC ####[facility] Urnangdilp[address] [place], [place] [address]Dr. Amina Escobar PRBC LEUKOREDUCED Cross Match Result Compatible Unit Blood Type O Neg Unit Number [id number] Status Information Transfused Product ID Red Blood Cells Product Code [id number] Normal [facility] Comment on above: Performed By: #### P RBC ####[facility] Dywxhhlirz[address]36 [place] [address]Dr. Amina Shawn CBC AUTO DIFFon 04-27-2022 BASO # 0.0 103/ul Normal 0.0-0.1 [facility] Comment on above: Performed By: #### C BC ####[facility] Putubktaoq[address] [place], [place] [address]Dr. Amina Escobar Basophils/100 WBC (Bld) 0.4 % Normal 0.2-2.0 [facility] Comment on above: Performed By: #### C BC ####[facility] Ljbockiytn[address] [place], [place] [address]Dr. Amina Escobar EO # 0.3 103/ul Normal 0.0-0.7 [facility] Comment on above: Performed By: #### C BC ####[facility] Xjfedombax853186 [address] [place], [place] [address]Dr. Amina Escobar Eosinophils/100 WBC (Bld) 3.1 % Normal 0.9-7.0 [facility] Comment on above: Performed By: #### C BC ####[facility] Behamwpaof[address] [place], [place] [address]Dr. Amina Escobar Erythrocyte distribution width (RBC) [Ratio] 20.3 % Critically high 11.0-15.0 [facility] Comment on above: Performed By: #### C BC ####[facility] Jhzpqbzlti8[address] [place], [place] [address]Dr. Amina Escobar Hematocrit (Bld) [Volume fraction] 26.5 % Critically low 42.0-54.0 [facility] Comment on above: Performed By: #### C BC ####[facility] Wuzkcopwjt18[address] [place], [place] [address]Dr. Amina Escobar Hemoglobin (Bld) [Mass/Vol] 8.4 g/dL Critically low 14.0-18.0 [facility] Comment on above: Performed By: #### C BC ####[facility] [address]ft[address] [place] [id number]. Amina Escobar IG # 0.05 10e3/ul Critically high 0.00-0.03 [facility] Comment on above: Performed By: #### C BC ####[facility] Fdjwzyhzfm9231 [place] [id number]. Amina Escobar IG % 0.6 % Critically high 0.0-0.5 [facility] Comment on above: Performed By: #### C BC ####[facility] Wpwfsyzuil[address] [place], [place] [address]Dr. Amina Escobar LYMPH # 0.8 103/ul Critically low 1.2-3.8 [facility] Comment on above: Performed By: #### C BC ####[facility] Cxoxiwvabl4925[address] [place], [place] [address]Dr. Amina Escobar Lymphocytes/100 WBC (Bld) 9.6 % Critically low 20.5-60.0 [facility] Comment on above: Performed By: #### C BC ####[facility] Uxvvrbtnbb04[address] [place], [place] [address]Dr. Amina Escobar MANUAL DIFF REQ NO Normal [facility] Comment on above: Performed By: #### C BC ####[facility] Lfjlomzkdl[address] [place], [place] [address]Dr. Amina Escobar MCH (RBC) [Entitic mass] 28.8 pg Normal 25.9-34.0 [facility] Comment on above: Performed By: #### C BC ####[facility] Rxmgfinonc0677[address] [place], [place] [address]Dr. Amina Escobar MCHC (RBC) [Mass/Vol] 31.7 g/dL Normal 29.9-35.2 [facility] Comment on above: Performed By: #### C BC ####[facility] Mtkuyaxhbh88[address] [place], [place] [address]Dr. Amina Escobar MCV (RBC) [Entitic vol] 90.8 fL Normal 80.0-94.0 [facility] Comment on above: Performed By: #### C BC ####[facility] Rvwhofcvki8514 [place] [id number]. Amina Escobar MONO # 0.8 103/ul Normal 0.3-0.8 [facility] Comment on above: Performed By: #### C BC ####[facility] Mentzzvijb6942 [place] [id number]. Amina Escobar Monocytes/100 WBC (Bld) 9.4 % Normal 1.7-12.0 [facility] Comment on above: Performed By: #### C BC ####[facility] Sbyogzqwub6494 [place] [id number]. Amina Escobar NEUT # 6.4 103/ul Normal 1.4-6.5 [facility] Comment on above: Performed By: #### C BC ####[facility] Qiwqruoqvd2672 [place] [address]Dr. Amina Escobar Neutrophils/100 WBC (Bld) 76.9 % Critically high 43.0-75.0 [facility] Comment on above: Performed By: #### C BC ####[facility] Ojzeqsfxgs1461 [place] [address]Dr. Amina Escobar Platelet mean volume (Bld) [Entitic vol] 10.5 fL Normal 9.5-13.5 [facility] Comment on above: Performed By: #### C BC ####[facility] Pkmuumioiv6311 [place] [id number]. Amina Escobar PLT 160 103/ul Normal 150-450 [facility] Comment on above: Performed By: #### C BC ####[facility] Kwzpswdudg12[address] [place], [place] [id number]. Amina Escobar RBC 2.92 106/ul Critically low 4.70-6.10 [facility] Comment on above: Performed By: #### C BC ####[facility] Fpnpralwlc3537 [place] [address]Dr. Amina Escobar WBC 8.3 103/ul Normal 4.0-11.0 [facility] Comment on above: Performed By: #### C BC ####[facility] Tlvirvamdt0549 [place] [address]Dr. Amina Escobar GLYCOHEMOGLOBIN A1Con 2021 ADA RECOMMENDATION SEE BELOW Normal [facility] Comment on above: Result Comment: ADA RECOMMENDED LIMIT 4.0 - 6.0 ADA THERAPEUTIC TARGET < 7.0 ACTION SUGGESTED > 7.0 Performed By: #### A 1C ####[facility] Nwfbyswrzo5613[address] [place], [place] [address]Dr. Amina Escobar Glucose [Mass/Vol] 111 mg/dL Normal [facility] Comment on above: Performed By: #### A 1C ####[facility] Wzttpniurk45[address] [place], [place] [address]Dr. Amina Escobar HbA1c (Bld) [Mass fraction] 5.5 % Normal 4.5-6.2 [facility] Comment on above: Performed By: #### A 1C ####[facility] Nmebzevtjf564[address] [place], [place] [address]Dr. Amina Escobar POINT OF CARE GLUCOSEon 04-11 Glucose [Mass/Vol] 195 mg/dL Critically high 74-106 [facility] Comment on above: Performed By: #### P OCGLUC ####[facility] Xznnikiwob[address] [place], [place] [address]DrMemo Escobar PROF CHEM 8 (BAS METB)on Anion gap [Moles/Vol] 10.0 mmol/L Normal [facility] Comment on above: Performed By: #### B MP ####[facility] Puwnwuaktp226[address] [place], [place] [address]DrMemo Escobar Calcium [Mass/Vol] 7.9 mg/dL Critically low 8.5-10.1 [facility] Comment on above: Performed By: #### B MP ####[facility] Johuyzlqfk0912[address] [place], [place] [address]Dr. Amina Escobar Chloride [Moles/Vol] 116 mmol/L Critically high 98-107 [facility] Comment on above: Performed By: #### B MP ####[facility] Paysukkwzt028[address] [place], [place] [address]DrMemo Escobar CO2 [Moles/Vol] 23.1 mmol/L Normal 21.0-32.0 [facility] Comment on above: Performed By: #### B MP ####[facility] Noasrkslzq5569 [place] [address]Dr. Amina Shawn Creatinine [Mass/Vol] 1.18 mg/dL Normal 0.70-1.30 [facility] Comment on above: Performed By: #### B MP ####[facility] Icfvuecrgr0108 [place] [address]Dr. Kandielda Shawn EGFR-AF MALAGASY >60 Normal >=60 [facility] Comment on above: Performed By: #### B MP ####[facility] Bywzxbjbqr8139 [place] [address]Dr. Amina Escobar EGFR-NON AF MALAGASY 59 mL/min/1.73m2 Critically low >=60 [facility] Comment on above: Performed By: #### B MP ####[facility] Mvzryulaib[address] [place], [place] [address]Dr. Amina Escobar Glucose [Mass/Vol] 100 mg/dL Normal 74-106 [facility] Comment on above: Performed By: #### B MP ####[facility] Ivrdpqumqw7559[address] [place], [place] [address]Dr. Amina Escobar Potassium [Moles/Vol] 4.1 mmol/L Normal 3.5-5.1 [facility] Comment on above: Performed By: #### B MP ####[facility] Fkhlnztjrw3101[address] [place], [place] [address]Dr. Amina Escobar Sodium [Moles/Vol] 145 mmol/L Normal 136-145 [facility] Comment on above: Performed By: #### B MP ####[facility] Psfhtcmddi[address] [place] [address]Dr. Amina Escobar Urea nitrogen [Mass/Vol] 40.0 mg/dL Critically high 7.0-18.0 [facility] Comment on above: Performed By: #### B MP ####[facility] Ovvlwdgprb1313[address] [place], [place] [address]Dr. Amina Escobar Urea nitrogen/Creatinine [Mass ratio] 33.9 mg/mg Normal [facility] Comment on above: Performed By: #### B MP ####[facility] Ucjbnxanys2212[address] [place], [place] [address]Dr. Amina Escobar CBC AUTO DIFFon 04-26-2022 BASO # 0.1 103/ul Normal 0.0-0.1 [facility] Comment on above: Performed By: #### C BC ####[facility] Omowihczzj759[address] [place], [place] [address]Dr. Amina Shawn Basophils/100 WBC (Bld) 0.6 % Normal 0.2-2.0 [facility] Comment on above: Performed By: #### C BC ####[facility] Irdgehtnra9617[address] [place], [place] [address]Dr. Amina Shawn EO # 0.2 103/ul Normal 0.0-0.7 [facility] Comment on above: Performed By: #### C BC ####[facility] Uaqfrxpfuz4449[address] [place], [place] [address]Dr. Amina Shawn Eosinophils/100 WBC (Bld) 2.1 % Normal 0.9-7.0 [facility] Comment on above: Performed By: #### C BC ####[facility] Nlthcdddxv75[address] [place], [place] [address]Dr. Amina Escobar Erythrocyte distribution width (RBC) [Ratio] 18.6 % Critically high 11.0-15.0 [facility] Comment on above: Performed By: #### C BC ####[facility] Tsbnxzorqe[address] [place], [place] [address]Dr. Amina Escobar Hematocrit (Bld) [Volume fraction] 23.6 % Critically low 42.0-54.0 [facility] Comment on above: Performed By: #### C BC ####[facility] Jmullaoknb[address] [place], [place] [address]Dr. Amina Shawn Hemoglobin (Bld) [Mass/Vol] 7.6 g/dL Critically low 14.0-18.0 [facility] Comment on above: Performed By: #### C BC ####[facility] Vcccpvzfhg[address] [place], [place] [address]Dr. Amina Escobar IG # 0.04 10e3/ul Critically high 0.00-0.03 [facility] Comment on above: Performed By: #### C BC ####[facility] [address]ys[address]ro[address] [place] [address]DrMemo Escobar IG % 0.5 % Normal 0.0-0.5 [facility] Comment on above: Performed By: #### C BC ####[facility] Eobjmbiole[address] [place] [address]DrMemo Escobar LYMPH # 0.8 103/ul Critically low 1.2-3.8 [facility] Comment on above: Performed By: #### C BC ####[facility] Tiuquqyxft0606 [place] [address]DrMemo Escobar Lymphocytes/100 WBC (Bld) 9.2 % Critically low 20.5-60.0 [facility] Comment on above: Performed By: #### C BC ####[facility] Vmqharwfds9656 [place] [address]DrMemo Escobar MANUAL DIFF REQ NO Normal [facility] Comment on above: Performed By: #### C BC ####[facility] Vyjmeekikd7992 [place] [address]DrMemo Escobar MCH (RBC) [Entitic mass] 29.1 pg Normal 25.9-34.0 [facility] Comment on above: Performed By: #### C BC ####[facility] Gfnrainplp4980 [place] [address]DrMemo Escobar MCHC (RBC) [Mass/Vol] 32.2 g/dL Normal 29.9-35.2 [facility] Comment on above: Performed By: #### C BC ####[facility] Gstpbmloqm7612 [place] [address]DrMemo Escobar MCV (RBC) [Entitic vol] 90.4 fL Normal 80.0-94.0 [facility] Comment on above: Performed By: #### C BC ####[facility] Tzoihnqbqn[address] [place], [place] [address]DrMemo Escobar MONO # 0.8 103/ul Normal 0.3-0.8 [facility] Comment on above: Performed By: #### C BC ####[facility] Aoenoutite[address] [place] [address]Dr. Amina Escobar Monocytes/100 WBC (Bld) 9.0 % Normal 1.7-12.0 [facility] Comment on above: Performed By: #### C BC ####[facility] Ufcagclota5236 [place] [address]Dr. Amina Escobar NEUT # 6.7 103/ul Critically high 1.4-6.5 [facility] Comment on above: Performed By: #### C BC ####[facility] Euulckxofj1325 [place] [address]Dr. Amina Escobar Neutrophils/100 WBC (Bld) 78.6 % Critically high 43.0-75.0 [facility] Comment on above: Performed By: #### C BC ####[facility] Mmtkdtoycp026[address] [place], [place] [address]Dr. Amina Escobar Platelet mean volume (Bld) [Entitic vol] 10.4 fL Normal 9.5-13.5 [facility] Comment on above: Performed By: #### C BC ####[facility] Xlpowyrztl6520 [place] [address]Dr. Amina Escobar PLT 167 103/ul Normal 150-450 [facility] Comment on above: Performed By: #### C BC ####[facility] Ygmzpfphlv8054 [place] [address]Dr. Amina Escobar RBC 2.61 106/ul Critically low 4.70-6.10 [facility] Comment on above: Performed By: #### C BC ####[facility] Pikmhfqedk5091 [place] [address]Dr. Amina Escobar WBC 8.5 103/ul Normal 4.0-11.0 [facility] Comment on above: Performed By: #### C BC ####[facility] Thyblelvao[address] [place], [place] [address]Dr. Amina Escobar HEMOGLOBIN AND HEMATOCRITon 04-26-2022 Hematocrit (Bld) [Volume fraction] 28.9 % Critically low 42.0-54.0 [facility] Comment on above: Performed By: #### H GBHCT ####[facility] Dchbedduqp878[address] [place], [place] [address]Dr. Amina Escobar Hemoglobin (Bld) [Mass/Vol] 9.1 g/dL Critically low 14.0-18.0 [facility] Comment on above: Performed By: #### H GBHCT ####[facility] Fojirpxire4969[address] [place], [place] [address]Dr. Amina Escobar POINT OF CARE GLUCOSEon 04-11 Glucose [Mass/Vol] 156 mg/dL Critically high 74-106 [facility] Comment on above: Performed By: #### P OCGLUC ####[facility] Wchijpitsl[address] [place], [place] [address]Dr. Amina Escobar Glucose [Mass/Vol] 182 mg/dL Critically high 74-106 [facility] Comment on above: Performed By: #### P OCGLUC ####[facility] Swhcbrjxse64[address] [place], [place] [address]Dr. Amina Escobar Glucose [Mass/Vol] 185 mg/dL Critically high 74-106 [facility] Comment on above: Performed By: #### P OCGLUC ####[facility] Beiifexeqp28[address] [place], [place] [address]Dr. Amina Escobar PROF CHEM 8 (BAS METB)on Anion gap [Moles/Vol] 9.4 mmol/L Normal [facility] Comment on above: Performed By: #### B MP ####[facility] Egqrxgyxih5295[address] [place], [place] [address]Dr. Amina Escobar Calcium [Mass/Vol] 7.8 mg/dL Critically low 8.5-10.1 [facility] Comment on above: Performed By: #### B MP ####[facility] Qrgijvvubb6[address] [place], [place] [address]Dr. Amina Escobar Chloride [Moles/Vol] 113 mmol/L Critically high 98-107 [facility] Comment on above: Performed By: #### B MP ####[facility] Mfwvycfdxh5597 [place] [id number]. Amina Escobar CO2 [Moles/Vol] 24.8 mmol/L Normal 21.0-32.0 [facility] Comment on above: Performed By: #### B MP ####[facility] Ruabhxewci5594 [place] [address]Dr. Amina Shawn Creatinine [Mass/Vol] 1.21 mg/dL Normal 0.70-1.30 [facility] Comment on above: Performed By: #### B MP ####[facility] Isvcmhdesn4888 [place] [address]Dr. Kandielda Shawn EGFR-AF MALAGASY >60 Normal >=60 [facility] Comment on above: Performed By: #### B MP ####[facility] Ycmwmszlrk336[address] [place], [place] [address]Dr. Amina Escobar EGFR-NON AF MALAGASY 57 mL/min/1.73m2 Critically low >=60 [facility] Comment on above: Performed By: #### B MP ####[facility] Dwmetamnhk7497 [place] [address]Dr. Amina Shawn Glucose [Mass/Vol] 95 mg/dL Normal 74-106 [facility] Comment on above: Performed By: #### B MP ####[facility] Wqgpaclfer4[address] [place], [place] [address]Dr. Amina Escobar Potassium [Moles/Vol] 4.2 mmol/L Normal 3.5-5.1 [facility] Comment on above: Performed By: #### B MP ####[facility] Mhhrfdkfco187[address] [place], [place] [address]Dr. Amina Escobar Sodium [Moles/Vol] 143 mmol/L Normal 136-145 [facility] Comment on above: Performed By: #### B MP ####[facility] Koffwqwiow8376 [place] [address]Dr. Amina Escobar Urea nitrogen [Mass/Vol] 44.0 mg/dL Critically high 7.0-18.0 [facility] Comment on above: Performed By: #### B MP ####[facility] Dabroqphor3149 [place] [id number]. Amina Escobar Urea nitrogen/Creatinine [Mass ratio] 36.4 mg/mg Normal [facility] Comment on above: Performed By: #### B MP ####[facility] Sztrsllhsr5698 [place] [id number]. Amina Escobar CBC AUTO DIFFon 04-25-2022 Basophils/100 WBC (Bld) 0.5 % Normal 0.2-2.0 [facility] Comment on above: Performed By: #### C BC ####[facility] Knwbmzseuk[address] [place], [place] [address]Dr. Amina Escobar EO # 0.1 103/ul Normal 0.0-0.7 [facility] Comment on above: Performed By: #### C BC ####[facility] Qnrymobktl1338[address] [place], [place] [address]Dr. Amina Escobar Eosinophils/100 WBC (Bld) 1.1 % Normal 0.9-7.0 [facility] Comment on above: Performed By: #### C BC ####[facility] Qptnlwqiny2650[address] [place], [place] [address]Dr. Amina Escobar Erythrocyte distribution width (RBC) [Ratio] 18.4 % Critically high 11.0-15.0 [facility] Comment on above: Performed By: #### C BC ####[facility] Hyzhclmcfc94[address] [place], [place] [address]Dr. Amina Escobar Hematocrit (Bld) [Volume fraction] 23.6 % Critically low 42.0-54.0 [facility] Comment on above: Performed By: #### C BC ####[facility] Oklrwybnha034[address] [place], [place] [address]Dr. Amina Escobar Hemoglobin (Bld) [Mass/Vol] 7.6 g/dL Critically low 14.0-18.0 [facility] Comment on above: Performed By: #### C BC ####[facility] Xskysinrvk5[address] [place], [place] [address]Dr. Amina Escobar IG # 0.03 10e3/ul Normal 0.00-0.03 [facility] Comment on above: Performed By: #### C BC ####[facility] Pckbkmotgy2040 [place] [address]Dr. Kandielda Escobar IG % 0.4 % Normal 0.0-0.5 [facility] Comment on above: Performed By: #### C BC ####[facility] Fmcuvgooms1407 [place] [address]Dr. Kandielda Escobar LYMPH # 0.8 103/ul Critically low 1.2-3.8 [facility] Comment on above: Performed By: #### C BC ####[facility] Rlobqijkbu7252 [place] [address]Dr. Kandielda Escobar Lymphocytes/100 WBC (Bld) 9.8 % Critically low 20.5-60.0 [facility] Comment on above: Performed By: #### C BC ####[facility] Pujvvqeucg[address] [place], [place] [address]Dr. Kandielda Escobar MCH (RBC) [Entitic mass] 28.7 pg Normal 25.9-34.0 [facility] Comment on above: Performed By: #### C BC ####[facility] Sbmwchoreq364[address] [place], [place] [address]Dr. Amina Shawn MCHC (RBC) [Mass/Vol] 32.2 g/dL Normal 29.9-35.2 [facility] Comment on above: Performed By: #### C BC ####[facility] Plbiumyhwr125[address] [place], [place] [address]Dr. Amina Shawn MCV (RBC) [Entitic vol] 89.1 fL Normal 80.0-94.0 [facility] Comment on above: Performed By: #### C BC ####[facility] Dsidywlwmf24[address] [place], [place] [address]Dr. Amina Escobar MONO # 0.7 103/ul Normal 0.3-0.8 [facility] Comment on above: Performed By: #### C BC ####[facility] Dqxjkohezc115[address] [place], [place] [address]Dr. Amina Escobar Monocytes/100 WBC (Bld) 8.1 % Normal 1.7-12.0 [facility] Comment on above: Performed By: #### C BC ####[facility] Diatghwoyc1780 [place] [address]Dr. Amina Escobar NEUT # 6.7 103/ul Critically high 1.4-6.5 [facility] Comment on above: Performed By: #### C BC ####[facility] Rctepqqufd7985 [place] [address]Dr. Amina Shawn Neutrophils/100 WBC (Bld) 80.1 % Critically high 43.0-75.0 [facility] Comment on above: Performed By: #### C BC ####[facility] Qaabywzmjq289[address] [place], [place] [address]Dr. Amina Escobar Platelet mean volume (Bld) [Entitic vol] 10.6 fL Normal 9.5-13.5 [facility] Comment on above: Performed By: #### C BC ####[facility] Gmannajbpk[address] [place], [place] [address]Dr. Amina Shawn PLT 183 103/ul Normal 150-450 [facility] Comment on above: Performed By: #### C BC ####[facility] Emuddetayb[address] [place], [place] [address]Dr. Amina Escobar RBC 2.65 106/ul Critically low 4.70-6.10 [facility] Comment on above: Performed By: #### C BC ####[facility] Qpjlrdpnew[address] [place], [place] [address]Dr. Amina Shawn WBC 8.4 103/ul Normal 4.0-11.0 [facility] Comment on above: Performed By: #### C BC ####[facility] Hqlgsjjvee237[address] [place], [place] [address]Dr. Amina Shawn CBC W MANUAL DIFFon 1015-20 22 ATYPICAL LYMPH # Normal [facility] Comment on above: Performed By: #### C BCMAN ####[facility] Qxnujimivt[address] [place], [place] [address]Dr. Amina Escobar ATYPICAL LYMPH % Normal [facility] Comment on above: Performed By: #### C BCKELLY ####[facility] Ummplcglew4[address] [place] [id number]. Yilan Escobar BAND # 0.2 103/ul Normal 0.0-0.3 [facility] Comment on above: Performed By: #### C BCKELLY ####[facility] Juyhbimvxc0111 [place] [address]Dr. Yilan Escobar BAND % 2 % Normal 0-5 [facility] Comment on above: Performed By: #### C ALEX ####[facility] Wxcidmubjr6949 [place] [address]Dr. Yilan Escobar BASOM # 0.00 103/ul Normal 0.00-0.10 [facility] Comment on above: Performed By: #### C ALEX ####[facility] Biijvyeqrf[address] [place], [place] [address]Dr. Yilan Escobar BASOM % 0.0 % Critically low 0.2-2.0 [facility] Comment on above: Performed By: #### C ALEX ####[facility] Kcaxslqwgs[address] [place], [place] [address]Dr. Yilan Escobar BLAST # Normal [facility] Comment on above: Performed By: #### C ALEX ####[facility] [address]nnhmtdylh[address] [place], [place] [address]Dr. Yilan Escobar BLAST % Normal [facility] Comment on above: Performed By: #### C ALEX ####[facility] Sbklewqcfg2754 [place] [address]Dr. Yilan Escobar CORRECTED WBC Normal 4.0-11.0 [facility] Comment on above: Performed By: #### C ALEX ####[facility] Jfrqxcxhrm3920 [place] [address]Dr. Yilan Escobar EOS # 0.23 103/ul Normal 0.00-0.70 [facility] Comment on above: Performed By: #### C ALEX ####[facility] Wdxmcheglv[address] [place], [place] [address]Dr. Yilan Escobar EOS% 3.0 % Normal 0.9-7.0 [facility] Comment on above: Performed By: #### [place] JOHNSON ####[facility] Rmjdbgasmu[address] [place], [place] [address]Eu. Amina Escobar HCT 22.4 % Critically low 42.0-54.0 [facility] Comment on above: Performed By: #### [place] JOHNSON ####[facility] Uqbeqmnrbu5333 [place], [place] [address]Jz. Amina Escobar HGB 7.2 g/dl Critically low 14.0-18.0 [facility] Comment on above: Performed By: #### [place] JOHNSON ####[facility] Aomsrzizks4972 [place], [place] [id number]. Amina Escobar LYMPHM # 0.70 103/ul Critically low 1.20-3.80 [facility] Comment on above: Performed By: #### Florence JOHNSON ####[facility] Kmtkzwrypb2936 [place] [id number]. Amina Escobar LYMPHM% 9.0 % Critically low 20.5-60.0 [facility] Comment on above: Performed By: #### Florence JOHNSON ####[facility] Wbzbmumtpu4516 [place] [id number]. Amina Escobar MCH 28.9 pg Normal 25.9-34.0 [facility] Comment on above: Performed By: #### Florence JOHNSON ####[facility] Odfxoffbvz9420 [place] [id number]. Amina Escobar MCHC 32.1 g/dl Normal 29.9-35.2 [facility] Comment on above: Performed By: #### Florence JOHNSON ####[facility] Snennrwebp2936 [place], [place] [address]Zr. Amina Escobar MCV 90.0 fL Normal 80.0-94.0 [facility] Comment on above: Performed By: #### Florence JOHNSON ####[facility] Dibbuxtysr4410 [place] [id number]. Amina Escobar METAMYELOCYTE # Normal [facility] Comment on above: Performed By: #### Florence JOHNSON ####[facility] Eoyisvhkxv0777 [place] [id number]. Amina Escobar METAMYELOCYTE % Normal [facility] Comment on above: Performed By: #### C ALEX ####[facility] Vcntekocou8935 [place] [id number]. Amina Escobar MONOM# 0.39 103/ul Normal 0.30-0.80 [facility] Comment on above: Performed By: #### C ALEX ####[facility] Epxkrkdzbq[address] [place], [place] [id number]. Amina Escobar MONOM% 5.0 % Normal 1.7-12.0 [facility] Comment on above: Performed By: #### C ALEX ####[facility] Sdlzruzxxo[address] [place], [place] [address]Dr. Amina Escobar MPV 10.9 fL Normal 9.5-13.5 [facility] Comment on above: Performed By: #### C ALEX ####[facility] Fsgbdbpojr3[address] [place], [place] [address]Dr. Amina Escobar MYELOCYTE # 0.2 103/ul Normal [facility] Comment on above: Performed By: #### C ALEX ####[facility] Okkuodrifa09[address] [place], [place] [address]Dr. Amina Escobar MYELOCYTE % 2 % Normal [facility] Comment on above: Performed By: #### C ALEX ####[facility] Bmnwbyfujq4[address] [place], [place] [id number]. Amina Shawn NRBC Normal [facility] Comment on above: Performed By: #### C ALEX ####[facility] Qqxnwiocrx97[address] [place], [place] [id number]. Kandielda Shawn OVALOCYTES 1+ Normal [facility] Comment on above: Performed By: #### C ALEX ####[facility] Hxnmmckpdh47[address] [place], [place] [id number]. Amina Escobar PLT 163 103/ul Normal 150-450 [facility] Comment on above: Performed By: #### C ALEX ####[facility] Golbflwmwp59[address] [place], [place] [address]Dr. Amina Escobar RBC 2.49 106/ul Critically low 4.70-6.10 [facility] Comment on above: Performed By: #### C ALEX ####[facility] Wxpqpnepwp8222 [place] [id number]. Amina Escobar RDW 18.4 % Critically high 11.0-15.0 [facility] Comment on above: Performed By: #### C ALEX ####[facility] Opybeksxxt5699 [place] [address]Dr. Amina Escobar SEG # 6.16 103/ul Normal 1.40-6.50 [facility] Comment on above: Performed By: #### C ALEX ####[facility] Nysupydzap3076 [place] [address]Dr. Amina Escobar SEG % 79.0 % Critically high 43.0-75.0 [facility] Comment on above: Performed By: #### C ALEX ####[facility] Xyencomxfc32[address] [place], [place] [address]Dr. Amina Escobar WBC 7.8 103/ul Normal 4.0-11.0 [facility] Comment on above: Performed By: #### Florence JOHNSON ####[facility] Ifopzkwoxh79[address] [place], [place] [address]Dr. Amina Escobar HEMOGLOBIN AND HEMATOCRITon 04-25-2022 Hematocrit (Bld) [Volume fraction] 27.1 % Critically low 42.0-54.0 [facility] Comment on above: Performed By: #### H GBHCT ####[facility] Bmjbnhoygj1629 [place] [address]Dr. Amina Escobar Hemoglobin (Bld) [Mass/Vol] 8.7 g/dL Critically low 14.0-18.0 [facility] Comment on above: Performed By: #### H GBHCT ####[facility] Yjxkksjcmj0297 [place] [address]Dr. Amina Escobar POINT OF CARE GLUCOSEon 04-11 Glucose [Mass/Vol] 124 mg/dL Critically high 74-[address] [facility] Comment on above: Performed By: #### P OCGLUC ####[facility] Jawmxrrmda5823 [place] [id number]. Amina Escobar Glucose [Mass/Vol] 102 mg/dL Normal 74-106 [facility] Comment on above: Performed By: #### P OCGLUC ####[facility] Jyosbcjglb8896 [place] [id number]. Amina Escobar Glucose [Mass/Vol] 108 mg/dL Critically high 74-106 [facility] Comment on above: Performed By: #### P OCGLUC ####[facility] Mjlrdesxbc1352 [place] [id number]. Amina Escobar Glucose [Mass/Vol] 120 mg/dL Critically high 74-106 [facility] Comment on above: Performed By: #### P OCGLUC ####[facility] Jjwtkrlebp3040 [place] [address]Dr. Amina Shawn PROF CHEM 8 (BAS METB)on Anion gap [Moles/Vol] 13.2 mmol/L Normal [facility] Comment on above: Performed By: #### B MP ####[facility] Hyrltgpgkc[address] [place], [place] [address]Dr. Amina Escobar Calcium [Mass/Vol] 8.1 mg/dL Critically low 8.5-10.1 [facility] Comment on above: Performed By: #### B MP ####[facility] Wkczfrzigh[address] [place], [place] [address]Dr. Amina Escobar Chloride [Moles/Vol] 111 mmol/L Critically high 98-107 [facility] Comment on above: Performed By: #### B MP ####[facility] Ujuzdntpnl1040 [place] [address]Dr. Amina Escobar CO2 [Moles/Vol] 26.0 mmol/L Normal 21.0-32.0 [facility] Comment on above: Performed By: #### B MP ####[facility] Xhsfykpueb4[address] [place], [place] [address]Dr. Amina Escobar Creatinine [Mass/Vol] 1.46 mg/dL Critically high 0.70-1.30 [facility] Comment on above: Performed By: #### B MP ####[facility] Bpomtoytun4907 [place] [address]Dr. Amina Escobar EGFR-AF MALAGASY 56 mL/min/1.73m2 Critically low >=60 [facility] Comment on above: Performed By: #### B MP ####[facility] Qvlscxbqfe1114 [place] [address]Dr. Amina Shawn EGFR-NON AF MALAGASY 46 mL/min/1.73m2 Critically low >=60 [facility] Comment on above: Performed By: #### B MP ####[facility] Guvfyurpxg0802 [place] [address]Dr. Kandielda Shawn Glucose [Mass/Vol] 107 mg/dL Critically high 74-106 [facility] Comment on above: Performed By: #### B MP ####[facility] Hetwvfxdrj5040 [place] [address]Dr. Amina Escobar Potassium [Moles/Vol] 4.2 mmol/L Normal 3.5-5.1 [facility] Comment on above: Performed By: #### B MP ####[facility] Dlcagflswc4[address] [place], [place] [address]Dr. Kandielda Shawn Sodium [Moles/Vol] 146 mmol/L Critically high 136-145 [facility] Comment on above: Performed By: #### B MP ####[facility] Yibsbobepb2435 [place] [address]Dr. Kandielda Shawn Urea nitrogen [Mass/Vol] 55.0 mg/dL Critically high 7.0-18.0 [facility] Comment on above: Performed By: #### B MP ####[facility] Ixnczrgywu2542 [place] [address]Dr. Amina Escobar Urea nitrogen/Creatinine [Mass ratio] 37.7 mg/mg Normal [facility] Comment on above: Performed By: #### B MP ####[facility] Ccaszsntje3483 [place] [address]Dr. Amina Shawn BNPon 04-24-2022 Natriuretic peptide B (Bld) [Mass/Vol] 2519.0 pg/mL Critically high <=1,800.0 [facility] Comment on above: Performed By: #### T SH, HSTROPN, CMP, BNP ####[facility] Olxbuwchud7350 [place] [address]Dr. Amina Escobar CBC AUTO DIFFon 04-24-2022 BASO # 0.0 103/ul Normal 0.0-0.1 [facility] Comment on above: Performed By: #### C BC ####[facility] Ghicljajyn[address] [place], [place] [address]Dr. Amina Escobar Basophils/100 WBC (Bld) 0.4 % Normal 0.2-2.0 [facility] Comment on above: Performed By: #### C BC ####[facility] Vpkcsnqfuv22[address] [place], [place] [address]Dr. Amina Escobar EO # 0.2 103/ul Normal 0.0-0.7 [facility] Comment on above: Performed By: #### C BC ####[facility] Dmxaenfvax[address] [place], [place] [address]Dr. Amina Escobar Eosinophils/100 WBC (Bld) 1.4 % Normal 0.9-7.0 [facility] Comment on above: Performed By: #### C BC ####[facility] Hgytgzejlu058[address] [place], [place] [address]Dr. Amina Escobar Erythrocyte distribution width (RBC) [Ratio] 20.1 % Critically high 11.0-15.0 [facility] Comment on above: Performed By: #### C BC ####[facility] Vzigcpjxsm[address] [place], [place] [address]Dr. Kandielda Escobar Hematocrit (Bld) [Volume fraction] 20.8 % Critically low 42.0-54.0 [facility] Comment on above: Performed By: #### C BC ####[facility] Dljzzvfcto4[address] [place], [place] [address]Dr. Amina Escobar Hemoglobin (Bld) [Mass/Vol] 6.5 g/dL Critically low 14.0-18.0 [facility] Comment on above: Performed By: #### C BC ####[facility] Njrouytqrk2186 [place] [id number]. Amina Escobar IG # 0.08 10e3/ul Critically high 0.00-0.03 [facility] Comment on above: Performed By: #### C BC ####[facility] Uufujemvvo9883 [place] [address]Dr. Amina Escobar IG % 0.7 % Critically high 0.0-0.5 [facility] Comment on above: Performed By: #### C BC ####[facility] Ybbbzofjuy4751 [place] [address]Dr. Amina Shawn LYMPH # 0.7 103/ul Critically low 1.2-3.8 [facility] Comment on above: Performed By: #### C BC ####[facility] Wlufdbkdcx5332 [place] [address]Dr. Amina Escobar Lymphocytes/100 WBC (Bld) 6.4 % Critically low 20.5-60.0 [facility] Comment on above: Performed By: #### C BC ####[facility] Cswwyfhjdu[address] [place], [place] [address]Dr. Kandielda Escobar MANUAL DIFF REQ NO Normal [facility] Comment on above: Performed By: #### C BC ####[facility] Vkhecpoqrg5356 [place] [address]Dr. Amina Shawn MCH (RBC) [Entitic mass] 28.5 pg Normal 25.9-34.0 [facility] Comment on above: Performed By: #### C BC ####[facility] Nxsbslqsqt8722 [place] [address]Dr. Amina Shawn MCHC (RBC) [Mass/Vol] 31.3 g/dL Normal 29.9-35.2 [facility] Comment on above: Performed By: #### C BC ####[facility] Uydnnarixh[address] [place], [place] [address]DrMemo Amina Shawn MCV (RBC) [Entitic vol] 91.2 fL Normal 80.0-94.0 [facility] Comment on above: Performed By: #### C BC ####[facility] Hdykermdrt5006 [place] [id number]. Amina Escobar MONO # 0.6 103/ul Normal 0.3-0.8 [facility] Comment on above: Performed By: #### C BC ####[facility] Xsltcbtqxx5952 [place] [id number]. Amina Escobar Monocytes/100 WBC (Bld) 5.0 % Normal 1.7-12.0 [facility] Comment on above: Performed By: #### C BC ####[facility] Eyhovpgzdk0877 [place] [id number]. Amina Escobar NEUT # 9.4 103/ul Critically high 1.4-6.5 [facility] Comment on above: Performed By: #### C BC ####[facility] Jiusznfndg3710 [place] [address]Dr. Amina Escobar Neutrophils/100 WBC (Bld) 86.1 % Critically high 43.0-75.0 [facility] Comment on above: Performed By: #### C BC ####[facility] Xjjorgzgoy3928 [place] [id number]. Amina Escobar Platelet mean volume (Bld) [Entitic vol] 10.8 fL Normal 9.5-13.5 [facility] Comment on above: Performed By: #### C BC ####[facility] Yjenssgpno4853 [place] [id number]. Amina Escobar PLT 202 103/ul Normal 150-450 [facility] Comment on above: Performed By: #### C BC ####[facility] Bavmktijkr3870 [place] [id number]. Amina Escobar RBC 2.28 106/ul Critically low 4.70-6.10 [facility] Comment on above: Performed By: #### C BC ####[facility] Xkivprngsj[address] [place], [place] [id number]. Amina Escobar WBC 10.9 103/ul Normal 4.0-11.0 [facility] Comment on above: Performed By: #### C BC ####[facility] Yzoucxgdvk[address] [place], [place] [id number]. Amina Escobar CT CSPINE WO CONon 2 CT CSPINE WO CON Normal [facility] CT HEAD WO CONon 04-24-2022 CT HEAD WO CON Normal [facility] CULTURE URINEon 04-24-2022 CULTURE URINE Culture Observations : LIGHT GROWTH OF MIXED SKIN NERISSA. NO POTENTIAL PATHOGENS SEEN. Normal [facility] Comment on above: Performed By: #### U RCX ####[facility] Rpshagxvkr8044 [place] [address]Dr. Amina Escobar Covid-19 PCR (CVDTB)on 04-11 SARS-CoV-2 (COVID-19) RNA MARSHALL+probe Ql (Unsp spec) Not detected Normal NOT DETECTED [facility] Comment on above: Result Comment: When diagnostic [...] for this test is supported by the [place] of Health and Human Service's declaration that [...] be used). Performed By: #### C VDTBH ####[facility] Wxxxhlarra9023 [place] [id number]. Amina Escobar ER URINE PROFILEon 2 Bilirubin Ql (U) Negative Normal NEGATIVE [facility] Comment on above: Performed By: #### E DMITRI HIGGINS ####[facility] Hwieomjtjx3011 [place] [id number]. Amina Escobar Clarity (U) CLEAR Normal CLEAR [facility] Comment on above: Performed By: #### E DMITRI HIGGINS ####[facility] Mgsuiyujat5552 [place] [address]Dr. Amina Escobar Color (U) LT. YELLOW Normal YELLOW [facility] Comment on above: Performed By: #### NATALYA ROSALESRO ####[facility] Enywthmlqk5987 [place] [address]Dr. Amina Escobar ERUAHD A micrscopic examina tion will be performed if indicated. Normal [facility] Comment on above: Performed By: #### NATALYA ROSALESRO ####[facility] Dkavjgxjsh[address] [place], [place] [address]Dr. Amina Escobar Glucose Ql (U) Negative Normal NEGATIVE [facility] Comment on above: Performed By: #### NATALYA ROSALESRO ####[facility] Uqjumdkkyj[address] [place], [place] [address]Dr. Amina Escobar Hemoglobin Ql (U) Negative Normal NEGATIVE [facility] Comment on above: Performed By: #### NATALYA ROSALESRO ####[facility] Onoqigwirp[address] [place], [place] [address]Dr. Amina Escobar Ketones Ql (U) Negative Normal NEGATIVE [facility] Comment on above: Performed By: #### NATALYA ROSALESRO ####[facility] Adcdfqyjqp376[address] [place], [place] [address]Dr. Amina Escobar LEUKOCYTES TRACE Abnormal NEGATIVE [facility] Comment on above: Performed By: #### NATALYA ROSALESRO ####[facility] Jtgvuxskak[address] [place], [place] [address]Dr. Amina Escobar Nitrite Ql (U) Negative Normal NEGATIVE [facility] Comment on above: Performed By: #### NATALYA ROSALESRO ####[facility] Wnkrufuacx[address] [place], [place] [address]Dr. Amina Escobar pH (U) 5.5 [pH] Normal 5-9 [facility] Comment on above: Performed By: #### NATALYA ROSALESRO ####[facility] Xjllezwsrg6[address] [place], [place] [address]Dr. Amina Escobar SPEC GRAVITY 1.015 Normal 1.005-<=1. 025 [facility] Comment on above: Performed By: #### DMITRI ROSALES ####[facility] Qvwmmyykve[address] [place], [place] [address]Dr. Amina Escobar UA PROTEIN Negative Normal NEGATIVE/ TRACE [facility] Comment on above: Performed By: #### DMITRI ROSALES ####[facility] Dxqbtuwsck[address] [place], [place] [address]Dr. Amina Escobar UR MICRO IND INDICATED Normal [facility] Comment on above: Performed By: #### DMITRI ROSALES ####[facility] Hfzducdijc[address] [place], [place] [address]DrMemo Escobar Urobilinogen Qn (U) 0.2 {Mel'U}/dL Normal 0.2 - 1. 0 [facility] Comment on above: Performed By: #### DMITRI ROSALES ####[facility] Tepodwfukt[address] [place], [place] [address]Dr. Amina Escobar IRONon 04-24-2022 Iron [Mass/Vol] 36.0 ug/dL Critically low 65.0-175.0 [facility] Comment on above: Performed By: #### I PHIL ####[facility] Ipdardpbti[address] [place], [place] [address]Dr. Amina Escobar OCC BLD IMMUNO SCREENon 04-11 OCCULT BLOOD Positive Abnormal NEGATIVE [facility] Comment on above: Performed By: #### O BSCRN ####[facility] Ebsfvmqusb[address] [place], [place] [address]DrMemo Escobar PROF 14(COMP METB)on 022 Albumin [Mass/Vol] 3.2 g/dL Critically low 3.4-5.0 [facility] Comment on above: Performed By: #### T SH, HSTROPN, CMP, BNP ####[facility] Fmadkrkgap[address] [place], [place] [address]Dr. Amina Escobar Albumin/Globulin [Mass ratio] 1.0 {ratio} Normal [facility] Comment on above: Performed By: #### T SH, HSTROPN, CMP, BNP ####[facility] Vyrjqjxsxn8836 [place] [address]Dr. Amina Escobar ALP [Catalytic activity/Vol] 148 U/L Critically high 46-116 [facility] Comment on above: Performed By: #### T SH, HSTROPN, CMP, BNP ####[facility] Rqqvvpvblz9822 [place] [address]Dr. Amina Escobar ALT [Catalytic activity/Vol] 19 U/L Normal 16-63 [facility] Comment on above: Performed By: #### T SH, HSTROPN, CMP, BNP ####[facility] Xhhccrfeco2475 [place] [address]Dr. Amina Escobar Anion gap [Moles/Vol] 12.0 mmol/L Normal [facility] Comment on above: Performed By: #### T SH, HSTROPN, CMP, BNP ####[facility] Txbhfnvcoc[address] [place], [place] [address]Dr. Amina Escobar AST [Catalytic activity/Vol] 11 U/L Critically low 15-37 [facility] Comment on above: Performed By: #### T SH, HSTROPN, CMP, BNP ####[facility] Dsgofycqzp1926 [place] [address]Dr. Amina Escobar Bilirubin [Mass/Vol] 0.5 mg/dL Normal 0.2-1.0 [facility] Comment on above: Performed By: #### T SH, HSTROPN, CMP, BNP ####[facility] Mozpciqhen9126 [place] [address]Dr. Amina Escobar Calcium [Mass/Vol] 8.1 mg/dL Critically low 8.5-10.1 [facility] Comment on above: Performed By: #### T SH, HSTROPN, CMP, BNP ####[facility] Gdbxthcnsr1926 [place] [address]Dr. Amina Escobar Chloride [Moles/Vol] 110 mmol/L Critically high 98-107 [facility] Comment on above: Performed By: #### T SH, HSTROPN, CMP, BNP ####[facility] Rillocolyw7715 [place] [address]Dr. Amina Escobar CO2 [Moles/Vol] 24.0 mmol/L Normal 21.0-32.0 [facility] Comment on above: Performed By: #### T SH, HSTROPN, CMP, BNP ####[facility] Epombvnszh5450 [place] [address]Dr. Amina Escobar Creatinine [Mass/Vol] 1.55 mg/dL Critically high 0.70-1.30 [facility] Comment on above: Performed By: #### T SH, HSTROPN, CMP, BNP ####[facility] Oxdkhnjsws0167 [place] [address]Dr. Amina Escobar EGFR-AF MALAGASY 52 mL/min/1.73m2 Critically low >=60 [facility] Comment on above: Performed By: #### T SH, HSTROPN, CMP, BNP ####[facility] [address]zflvzbsg[address] [place], [place] [address]Dr. Amina Escobar EGFR-NON AF MALAGASY 43 mL/min/1.73m2 Critically low >=60 [facility] Comment on above: Performed By: #### T SH, HSTROPN, CMP, BNP ####[facility] Lldtkztbbh1812 [place] [address]Dr. Amina Escobar Globulin (S) [Mass/Vol] 3.3 g/dL Normal [facility] Comment on above: Performed By: #### T SH, HSTROPN, CMP, BNP ####[facility] Hshnocglgx6572 [place] [address]Dr. Amina Escobar Glucose [Mass/Vol] 139 mg/dL Critically high 74-106 [facility] Comment on above: Performed By: #### T SH, HSTROPN, CMP, BNP ####[facility] Emxvmdotsm7919 [place] [address]Dr. Amina Escobar Potassium [Moles/Vol] 4.0 mmol/L Normal 3.5-5.1 [facility] Comment on above: Performed By: #### T SH, HSTROPN, CMP, BNP ####[facility] Uykwdvlcol3106 [place] [address]Dr. Amina Escobar Protein [Mass/Vol] 6.5 g/dL Normal 6.4-8.2 [facility] Comment on above: Performed By: #### T SH, HSTROPN, CMP, BNP ####[facility] Beslntmkrv9697 [place] [address]Dr. Amina Escobar Sodium [Moles/Vol] 142 mmol/L Normal 136-145 [facility] Comment on above: Performed By: #### T SH, HSTROPN, CMP, BNP ####[facility] [address]kkefldqz[address] [place], [place] [address]Dr. Amina Escobar Urea nitrogen [Mass/Vol] 58.0 mg/dL Critically high 7.0-18.0 [facility] Comment on above: Performed By: #### T SH, HSTROPN, CMP, BNP ####[facility] Bcddprpkir[address] [place], [place] [address]Dr. Amina Escobar Urea nitrogen/Creatinine [Mass ratio] 37.4 mg/mg Normal [facility] Comment on above: Performed By: #### T SH, HSTROPN, CMP, BNP ####[facility] [address]ecziohvue[address] [place], [place] [address]Dr. Amina Escobar PROTIMEon 04-24-2022 INR Coag (PPP) [Relative time] 2.33 {INR} Normal [facility] Comment on above: Performed By: #### P T, PTT ####[facility] Gqfnoxnzas[address] [place], [place] [address]Dr. Amina Escobar INR GUIDELINES SEE BELOW Normal [facility] Comment on above: Result Comment: LIMA RED INR: 2.0 - 3.0 CONDITIONS NOT LISTED BELOW 2.5 - 3.5 FOR PROSTHETIC HEART VALVE REPLACEMENT 2.5 - 3.5 RECURRENT THROMBOSIS Performed By: #### P T, PTT ####[facility] [address]afjcmhuue[address] [place], [place] [address]Dr. Amina Escobar PT Coag (PPP) [Time] 23.8 s Critically high 9.0-11.6 [facility] Comment on above: Performed By: #### P T, PTT ####[facility] Fzgceednbp8262 [place] [address]Dr. Amina Escobar PTTon 04-24-2022 aPTT Coag (Bld) [Time] 37.6 s Critically high 22.3-36.2 [facility] Comment on above: Performed By: #### P T, PTT ####[facility] Wiwovyoniq[address] [place], [place] [address]Dr. Amina Escobar TROPONIN, HIGH SENSITIVITYon 04-24-2022 HSTROP 19.5 pg/mL Normal 4.0-76.1 [facility] Comment on above: Result Comment: CUT- OFF POINTS HAVE BEEN ESTABLISHED BASED ON THE FOURTH UNIVERSAL DEFINITIONS OF MYOCARDIALINFARCTION. THE UPPER REFERENCE LIMIT (URL) OF TROPONIN, DEFINED THE 99TH PERCENTILE OFcTnI DISTRIBUTION IN A REFERENCE POPULATION, HAS BEEN CONFIRMED THE DECISION THRESHOLDFOR IL DIAGNOSIS. Performed By: #### T SH, HSTROPN, CMP, BNP ####[facility] [address]ju[address] [place], [place] [address]Dr. Amina Escobar TSHon 04-24-2022 TSH 7.569 uIU/mL Critically high 0.358-3.74 0 [facility] Comment on above: Performed By: #### T SH, HSTROPN, CMP, BNP ####[facility] Oqvtmnewxa[address] [place], [place] [address]Dr. Amina Escobar TYPE AND SCREENon 04-24-2022 TYPE AND SCREEN Negative Normal [facility] Comment on above: Performed By: #### T NS ####[facility] Feamhgadnf[address] [place], [place] [address]Dr. Amina Escobar URINE MICROSCOPIC ONLYon BACTERIA TRACE Abnormal NONE SEEN [facility] Comment on above: Performed By: #### DMITRI ROSALES ####[facility] Ouuqiwlwev[address] [place], [place] [address]Dr. Amina Escobar Bacteria identified Cx Nom (U) INDICATED Normal [facility] Comment on above: Performed By: #### E NATALYA HIGGINSRO ####[facility] [address]scmx[address] [place] [address]Dr. Amina Escobar CAST NONE SEEN Normal NONE SEEN [facility] Comment on above: Performed By: #### NATALYA ROSALESRO ####[facility] Vfwpufkbtj66[address] [place] [address]Dr. Amina Escobar Crystals LM Nom (Urine sed) NONE SEEN Normal NONE SEEN [facility] Comment on above: Performed By: #### NATALYA ROSALESRO ####[facility] Xygjag[address]kq[address] [place], [place] [address]Dr. Amina Escobar Epithelial cells LM Ql (Urine sed) RARE Normal NONE SEEN /RARE [facility] Comment on above: Performed By: #### NATALYA ROSALESRO ####[facility] Hcinycrizk[address] [place], [place] [address]Dr. Amina Escobar MUCOUS TRACE Abnormal NONE SEEN [facility] Comment on above: Performed By: #### DMITRI ROSALES ####[facility] Tvmzpxwapu[address] [place], [place] [address]Dr. Amina Escobar RBC NONE SEEN Abnormal 0-2 [facility] Comment on above: Performed By: #### DMITRI ROSALES ####[facility] Gcclxynsnx[address] [place], [place] [address]Dr. Amina Escobar WBC 0-2 Abnormal NONE SEEN [facility] Comment on above: Performed By: #### NATALYA ROSALESRO ####[facility] [address]gfdathqae[address] [place], [place] [address]Dr. Amina Escobar XR CHEST 1 Von 04-24-2022 XR CHEST 1 V Normal [facility] XR PELVIS 1_2 VIEWSon 2021 XR PELVIS 1_2 VIEWS Normal [facility] HEMOGRAM AND PLATELon 2021 Hematocrit (Bld) [Volume fraction] 37.9 % Critically low 42.0-54.0 [facility] Comment on above: Performed By: #### H H ####[facility] Aqfgbreycm[address] [place], [place] [address]Dr. Amina Escobar Hemoglobin (Bld) [Mass/Vol] 11.6 g/dL Critically low 14.0-18.0 [facility] Comment on above: Performed By: #### H H ####[facility] [address]xsh[address] [place] [address]Dr. Amina Escobar MCH (RBC) [Entitic mass] 27.1 pg Normal 25.9-34.0 [facility] Comment on above: Performed By: #### H H ####[facility] Ubwszywjqa[address] [place] [address]Dr. Amina Escboar MCHC (RBC) [Mass/Vol] 30.6 g/dL Normal 29.9-35.2 [facility] Comment on above: Performed By: #### H H ####[facility] Pkykhdkbqu[address] [place] [address]Dr. Amina Escobar MCV (RBC) [Entitic vol] 88.6 fL Normal 80.0-94.0 [facility] Comment on above: Performed By: #### H H ####[facility] Xcbtnlfciz[address] [place], [place] [address]Dr. Amina Escobar PLT 165 103/ul Normal 150-450 [facility] Comment on above: Performed By: #### H H ####[facility] Wckgjcaohk[address] [place], [place] [address]Dr. Amina Escobar RBC 4.28 106/ul Critically low 4.70-6.10 [facility] Comment on above: Performed By: #### H H ####[facility] Wybhbsubpu[address] [place], [place] [address]Dr. Amina Escobar WBC 7.4 103/ul Normal 4.0-11.0 [facility] Comment on above: Performed By: #### H H ####[facility] Njezwxqsyi[address] [place], [place] [address]DrMemo Amina Escobar IRONon 04-10-2022 Iron [Mass/Vol] 66.0 ug/dL Normal 65.0-175.0 [facility] Comment on above: Performed By: #### I PHIL ####[facility] Jccglcibq[address] [place], [place] [id number]. Amina Escobar CBC AUTO DIFFon 02-16-2022 BASO # 0.1 103/ul Normal 0.0-0.1 [facility] Comment on above: Performed By: #### C BC ####[facility] F[address]fbwpktwh[address] [place] [address]Dr. Amina Escobar Basophils/100 WBC (Bld) 0.8 % Normal 0.2-2.0 [facility] Comment on above: Performed By: #### C BC ####[facility] Xzlvmcjsvf24[address] [place] [address]Dr. Amina Escobar EO # 0.2 103/ul Normal 0.0-0.7 [facility] Comment on above: Performed By: #### C BC ####[facility] Pmogcqlyni[address] [place], [place] [address]Dr. Amina Escobar Eosinophils/100 WBC (Bld) 3.2 % Normal 0.9-7.0 [facility] Comment on above: Performed By: #### C BC ####[facility] Zorqpguqwo16[address] [place], [place] [address]Dr. Amina Escobar Erythrocyte distribution width (RBC) [Ratio] 17.6 % Critically high 11.0-15.0 [facility] Comment on above: Performed By: #### C BC ####[facility] Kfkeibyukj[address] [place] [address]Dr. Amina Escobar Hematocrit (Bld) [Volume fraction] 36.5 % Critically low 42.0-54.0 [facility] Comment on above: Performed By: #### C BC ####[facility] Sfafwnsygz[address] [place], [place] [address]Dr. Amina Escobar Hemoglobin (Bld) [Mass/Vol] 11.2 g/dL Critically low 14.0-18.0 [facility] Comment on above: Performed By: #### C BC ####[facility] Rnxjvylzwj[address] [place], [place] [address]Dr. Amina Escobar IG # 0.02 10e3/ul Normal 0.00-0.03 [facility] Comment on above: Performed By: #### C BC ####[facility] [address]ebsdthrgz[address] [place] [id number]. Amina Escobar IG % 0.3 % Normal 0.0-0.5 [facility] Comment on above: Performed By: #### C BC ####[facility] [address]asnnhaux[address] [place] [id number]. Amina Escobar LYMPH # 0.9 103/ul Critically low 1.2-3.8 [facility] Comment on above: Performed By: #### C BC ####[facility] Xathqtdvns39[address] [place] [id number]. Amina Escobar Lymphocytes/100 WBC (Bld) 14.2 % Critically low 20.5-60.0 [facility] Comment on above: Performed By: #### C BC ####[facility] [address]pxfy[address] [place] [address]Dr. Amina Escobar MANUAL DIFF REQ NO Normal [facility] Comment on above: Performed By: #### C BC ####[facility] Igeyjewspl[address] [place] [id number]. Amina Escobar MCH (RBC) [Entitic mass] 26.4 pg Normal 25.9-34.0 [facility] Comment on above: Performed By: #### C BC ####[facility] Xwcpmquifh90[address] [place] [id number]. Amina Escobar MCHC (RBC) [Mass/Vol] 30.7 g/dL Normal 29.9-35.2 [facility] Comment on above: Performed By: #### C BC ####[facility] Gzvlpmvqim[address] [place] [id number]. Amina Escobar MCV (RBC) [Entitic vol] 86.1 fL Normal 80.0-94.0 [facility] Comment on above: Performed By: #### C BC ####[facility] Kfveczqurx28[address] [place] [id number]. Amina Escobar MONO # 0.6 103/ul Normal 0.3-0.8 [facility] Comment on above: Performed By: #### C BC ####[facility] [address]yhkohqpzr20[address] [place] [id number]. Amina Escobar Monocytes/100 WBC (Bld) 8.7 % Normal 1.7-12.0 [facility] Comment on above: Performed By: #### C BC ####[facility] Bktrosxcmt[address] [place] [id number]. Amina Escobar NEUT # 4.6 103/ul Normal 1.4-6.5 [facility] Comment on above: Performed By: #### C BC ####[facility] Wlbuxgfqjv350[address] [place] [id number]. Amina Escobar Neutrophils/100 WBC (Bld) 72.8 % Normal 43.0-75.0 [facility] Comment on above: Performed By: #### C BC ####[facility] Tbwakyaexd[address] [place] [id number]. Amina Escobar Platelet mean volume (Bld) [Entitic vol] 11.0 fL Normal 9.5-13.5 [facility] Comment on above: Performed By: #### C BC ####[facility] Piryaikhfm6[address] [place] [id number]. Amina Escobar PLT 183 103/ul Normal 150-450 [facility] Comment on above: Performed By: #### C BC ####[facility] Bouqjszhel[address] [place] [id number]. Amina Escobar RBC 4.24 106/ul Critically low 4.70-6.10 [facility] Comment on above: Performed By: #### C BC ####[facility] Aqezoyapjq94[address] [place] [id number]. Amina Escobar WBC 6.3 103/ul Normal 4.0-11.0 [facility] Comment on above: Performed By: #### C BC ####[facility] Ptxywdkqgi37[address] [place] [id number]. Amina Escobar CULTURE URINEon 02-16-2022 CULTURE URINE Culture Observations : NO GROWTH. Normal [facility] Comment on above: Performed By: #### U RCX ####[facility] Tjarlvuiuu[address] [place], [place] [address]Dr. Amina Escobar PROF 14(COMP METB)on 022 Albumin [Mass/Vol] 3.5 g/dL Normal 3.4-5.0 [facility] Comment on above: Performed By: #### C MP ####[facility] Pesdfswynz[address] [place], [place] [address]Dr. Amina Escobar Albumin/Globulin [Mass ratio] 1.0 {ratio} Normal [facility] Comment on above: Performed By: #### C MP ####[facility] Bpjlqlwlyc[address] [place], [place] [address]Dr. Amina Escobar ALP [Catalytic activity/Vol] 199 U/L Critically high 46-116 [facility] Comment on above: Performed By: #### C MP ####[facility] Yrzawdykeh[address] [place], [place] [address]Dr. Amina Escobar ALT [Catalytic activity/Vol] 17 U/L Normal 16-63 [facility] Comment on above: Performed By: #### C MP ####[facility] Gnduzygadz[address] [place], [place] [address]Dr. Amina Escobar Anion gap [Moles/Vol] 13.3 mmol/L Normal [facility] Comment on above: Performed By: #### C MP ####[facility] Qnspflpxyh[address] [place], [place] [address]Dr. Amina Escobar AST [Catalytic activity/Vol] 10 U/L Critically low 15-37 [facility] Comment on above: Performed By: #### C MP ####[facility] Pblvyyoilv[address] [place], [place] [address]Dr. Amina Escobar Bilirubin [Mass/Vol] 0.4 mg/dL Normal 0.2-1.0 [facility] Comment on above: Performed By: #### C MP ####[facility] Zhaejevpzk[address] [place], [place] [address]Dr. Amina Escobar Calcium [Mass/Vol] 8.5 mg/dL Normal 8.5-10.1 [facility] Comment on above: Performed By: #### C MP ####[facility] Qrashprkll5[address] [place] [id number]. Amina Escobar Chloride [Moles/Vol] 110 mmol/L Critically high 98-107 [facility] Comment on above: Performed By: #### C MP ####[facility] Livrfbzhha[address] [place] [address]Dr. Amina Escobar CO2 [Moles/Vol] 26.0 mmol/L Normal 21.0-32.0 [facility] Comment on above: Performed By: #### C MP ####[facility] Qnsqvsnsxg7868 [place] [address]Dr. Amina Shawn Creatinine [Mass/Vol] 1.35 mg/dL Critically high 0.70-1.30 [facility] Comment on above: Performed By: #### C MP ####[facility] [address]qlmzojtdh[address] [place], [place] [address]Dr. Amina Shawn EGFR-AF MALAGASY >60 Normal >=60 [facility] Comment on above: Performed By: #### C MP ####[facility] Gqpzjdvhpr[address] [place] [address]Dr. Amina Shawn EGFR-NON AF MALAGASY 50 mL/min/1.73m2 Critically low >=60 [facility] Comment on above: Performed By: #### C MP ####[facility] Mzuxofgdpm[address] [place] [address]Dr. Amina Shawn Globulin (S) [Mass/Vol] 3.6 g/dL Normal [facility] Comment on above: Performed By: #### C MP ####[facility] Uqomlajsxi[address] [place] [address]Dr. Amina Shawn Glucose [Mass/Vol] 109 mg/dL Critically high 74-106 [facility] Comment on above: Performed By: #### C MP ####[facility] Wsamgfhade[address] [place], [place] [address]Dr. Amina Shawn Potassium [Moles/Vol] 4.3 mmol/L Normal 3.5-5.1 [facility] Comment on above: Performed By: #### C MP ####[facility] Appdzrxcjn[address] [place], [place] [address]Dr. Amina Escobar Protein [Mass/Vol] 7.1 g/dL Normal 6.4-8.2 [facility] Comment on above: Performed By: #### C MP ####[facility] Pamqlftxsf[address] [place], [place] [address]Dr. Amina Escobar Sodium [Moles/Vol] 145 mmol/L Normal 136-145 [facility] Comment on above: Performed By: #### C MP ####[facility] Lggxipcaga[address] [place], [place] [address]Dr. Amina Escobar Urea nitrogen [Mass/Vol] 34.0 mg/dL Critically high 7.0-18.0 [facility] Comment on above: Performed By: #### C MP ####[facility] Fpfyxvacke[address] [place], [place] [address]Dr. Amina Escobar Urea nitrogen/Creatinine [Mass ratio] 25.2 mg/mg Normal [facility] Comment on above: Performed By: #### C MP ####[facility] Tlmbdvcljz[address] [place], [place] [address]Dr. Amina Escobar UA (CLEAN/CATCH) MICROSCOPIC IF INDICATEon 02-16-2022 Bilirubin Ql (U) Negative Normal NEGATIVE [facility] Comment on above: Performed By: #### U ARMICR ####[facility] Vmrqsyvglv[address] [place], [place] [address]Dr. Amina Escobar Clarity (U) CLEAR Normal CLEAR [facility] Comment on above: Performed By: #### U ARMICR ####[facility] [address]mkfirwglo[address] [place], [place] [address]Dr. Amina Escobar Color (U) YELLOW Normal YELLOW [facility] Comment on above: Performed By: #### U ARMICR ####[facility] Webqqfivpn4264[address] [place], [place] [address]Dr. Amina Escobar Glucose Ql (U) Negative Normal NEGATIVE [facility] Comment on above: Performed By: #### U ARMICR ####[facility] Pxlnxdkltt[address] [place], [place] [address]Dr. Amina Escobar Hemoglobin Ql (U) Negative Normal NEGATIVE [facility] Comment on above: Performed By: #### U ARMICR ####[facility] Ihlseicyvr45[address] [place] [address]Dr. Amina Escobar Ketones Ql (U) Negative Normal NEGATIVE [facility] Comment on above: Performed By: #### U ARMICR ####[facility] Crnehlguzc9209 [place] [address]Dr. Amina Escobar LEUKOCYTES Negative Normal NEGATIVE [facility] Comment on above: Performed By: #### U ARMICR ####[facility] Nogumsalnw7422 [place] [address]Dr. Amina Escobar Nitrite Ql (U) Negative Normal NEGATIVE [facility] Comment on above: Performed By: #### U ARMICR ####[facility] Yitasrawtn9153 [place] [address]Dr. Amina Escobar pH (U) 5.5 [pH] Normal 5-9 [facility] Comment on above: Performed By: #### U ARMICR ####[facility] K[address]wfrcaghu[address] [place], [place] [address]Dr. Amina Escobar SPEC GRAVITY 1.025 Normal 1.005-<=1. 025 [facility] Comment on above: Performed By: #### U ARMICR ####[facility] Nszifrmosk[address] [place], [place] [address]Dr. Amina Escobar UA PROTEIN Negative Normal NEGATIVE/ TRACE [facility] Comment on above: Performed By: #### U ARMICR ####[facility] Mvjxuikuza[address] [place], [place] [address]Dr. Amina Escobar UR MICRO IND MICROSCOPIC ALREADY ORDERED Normal [facility] Comment on above: Performed By: #### U ARMICR ####[facility] Fhdxytoxco[address] [place], [place] [address]Dr. Amina Escobar Urobilinogen Qn (U) 0.2 {Mel'U}/dL Normal 0.2 - 1. 0 [facility] Comment on above: Performed By: #### U ARMICR ####[facility] Opitbpvfuf[address] [place], [place] [address]Dr. Amina Escobar ECHOCARDIO M/2D COMPLETEon 0 02-11-2022 ECHOCARDIO M/2D COMPLETE Normal [facility] CBC AUTO DIFFon 01-06-2022 BASO # 0.0 103/ul Normal 0.0-0.1 [facility] Comment on above: Performed By: #### C BC ####[facility] Ucxkmixkjm76[address] [place] [id number]. Amina Escobar Basophils/100 WBC (Bld) 0.7 % Normal 0.2-2.0 [facility] Comment on above: Performed By: #### C BC ####[facility] Jcsnqqmdrl26[address] [place] [id number]. Amina Escobar EO # 0.3 103/ul Normal 0.0-0.7 [facility] Comment on above: Performed By: #### C BC ####[facility] Hkcjzxwpuc92[address] [place] [address]Dr. Amina Shawn Eosinophils/100 WBC (Bld) 5.4 % Normal 0.9-7.0 [facility] Comment on above: Performed By: #### C BC ####[facility] Rsq[address]unxidt[address] [place], [place] [id number]. Amina Escobar Erythrocyte distribution width (RBC) [Ratio] 18.2 % Critically high 11.0-15.0 [facility] Comment on above: Performed By: #### C BC ####[facility] Vnhkplwnxq9088 [place] [id number]. Amina Escobar Hematocrit (Bld) [Volume fraction] 35.6 % Critically low 42.0-54.0 [facility] Comment on above: Performed By: #### C BC ####[facility] Loccwupzfb5043 [place] [id number]. Amina Escobar Hemoglobin (Bld) [Mass/Vol] 10.9 g/dL Critically low 14.0-18.0 [facility] Comment on above: Performed By: #### C BC ####[facility] Otdopquihm7239 [place] [id number]. Amina Escobar IG # 0.02 10e3/ul Normal 0.00-0.03 [facility] Comment on above: Performed By: #### C BC ####[facility] Jldwniyfyi47[address] [place] [address]Dr. Kandielda Escobar IG % 0.4 % Normal 0.0-0.5 [facility] Comment on above: Performed By: #### C BC ####[facility] Rmzyhgnmly5[address] [place] [address]DrMemo Amina Shawn LYMPH # 0.8 103/ul Critically low 1.2-3.8 [facility] Comment on above: Performed By: #### C BC ####[facility] Hqzunisowg9585 [place] [address]DrMemo Kandielda Escobar Lymphocytes/100 WBC (Bld) 13.4 % Critically low 20.5-60.0 [facility] Comment on above: Performed By: #### C BC ####[facility] H[address]qj[address] [place], [place] [address]DrMemo Escobar MANUAL DIFF REQ NO Normal [facility] Comment on above: Performed By: #### C BC ####[facility] Vgrtrztsjn1302 [place] [address]Dr. Amina Shawn MCH (RBC) [Entitic mass] 26.6 pg Normal 25.9-34.0 [facility] Comment on above: Performed By: #### C BC ####[facility] Agroceizyx3449 [place] [address]DrMemo Amina Shawn MCHC (RBC) [Mass/Vol] 30.6 g/dL Normal 29.9-35.2 [facility] Comment on above: Performed By: #### C BC ####[facility] [address]npxhnhjm[address] [place], [place] [address]DrMemo Kandielda Escobar MCV (RBC) [Entitic vol] 86.8 fL Normal 80.0-94.0 [facility] Comment on above: Performed By: #### C BC ####[facility] [address]slctagum[address] [place], [place] [address]DrMemo Escobar MONO # 0.6 103/ul Normal 0.3-0.8 [facility] Comment on above: Performed By: #### C BC ####[facility] Tilkbprevf24[address] [place] [id number]. Amina Escobar Monocytes/100 WBC (Bld) 10.4 % Normal 1.7-12.0 [facility] Comment on above: Performed By: #### C BC ####[facility] Zgrttaaywe6312 [place] [id number]. Amina Escobar NEUT # 3.9 103/ul Normal 1.4-6.5 [facility] Comment on above: Performed By: #### C BC ####[facility] Ruqisdxodu6933 [place] [id number]. Amina Escobar Neutrophils/100 WBC (Bld) 69.7 % Normal 43.0-75.0 [facility] Comment on above: Performed By: #### C BC ####[facility] Toeeoapipi75[address] [place] [address]Dr. Amina Escobar Platelet mean volume (Bld) [Entitic vol] 10.6 fL Normal 9.5-13.5 [facility] Comment on above: Performed By: #### C BC ####[facility] Tdemrnzsqn6032 [place] [id number]. Amina Escobar PLT 180 103/ul Normal 150-450 [facility] Comment on above: Performed By: #### C BC ####[facility] Vfhhvhxrjo7260 [place] [id number]. Amina Escobar RBC 4.10 106/ul Critically low 4.70-6.10 [facility] Comment on above: Performed By: #### C BC ####[facility] Fqpyiejfii0497 [place] [id number]. Amina Escobar WBC 5.6 103/ul Normal 4.0-11.0 [facility] Comment on above: Performed By: #### C BC ####[facility] Cpapoqievr6897 [place] [id number]. Amina Escobar IRONon 01-06-2022 Iron [Mass/Vol] 42.0 ug/dL Critically low 65.0-175.0 [facility] Comment on above: Performed By: #### I PHIL ####[facility] Zriqqeeppj[address] [place], [place] [address]Dr. Amina Escobar CBC AUTO DIFFon 12-23-2021 BASO # 0.1 103/ul Normal 0.0-0.1 [facility] Comment on above: Performed By: #### C BC ####[facility] Ooiduudxmb644[address] [place], [place] [address]Dr. Amina Escobar Basophils/100 WBC (Bld) 0.9 % Normal 0.2-2.0 [facility] Comment on above: Performed By: #### C BC ####[facility] Nyfukvxzkj[address] [place], [place] [address]Dr. Amina Escobar EO # 0.2 103/ul Normal 0.0-0.7 [facility] Comment on above: Performed By: #### C BC ####[facility] Kmetgvgisd[address] [place], [place] [address]Dr. Amina Escobar Eosinophils/100 WBC (Bld) 3.6 % Normal 0.9-7.0 [facility] Comment on above: Performed By: #### C BC ####[facility] Caljyzsxcb[address] [place], [place] [address]Dr. Amina Escobar Erythrocyte distribution width (RBC) [Ratio] 19.5 % Critically high 11.0-15.0 [facility] Comment on above: Performed By: #### C BC ####[facility] Mnarnjoizg[address] [place], [place] [address]Dr. Amina Escobar Hematocrit (Bld) [Volume fraction] 33.6 % Critically low 42.0-54.0 [facility] Comment on above: Performed By: #### C BC ####[facility] Besfofiici[address] [place], [place] [address]Dr. Amina Escobar Hemoglobin (Bld) [Mass/Vol] 10.2 g/dL Critically low 14.0-18.0 [facility] Comment on above: Performed By: #### C BC ####[facility] [address] [place], [place] [address]Dr. Amina Escobar IG # 0.01 10e3/ul Normal 0.00-0.03 [facility] Comment on above: Performed By: #### C BC ####[facility] Jjpfcupegl4000 [place] [address]DrMemo Amina Escobar IG % 0.2 % Normal 0.0-0.5 [facility] Comment on above: Performed By: #### C BC ####[facility] Syirxczepk7475 [place] [address]DrMemo Amina Shawn LYMPH # 0.8 103/ul Critically low 1.2-3.8 [facility] Comment on above: Performed By: #### C BC ####[facility] Iuypjufhot6983 [place] [address]DrMemo Amina Shawn Lymphocytes/100 WBC (Bld) 15.2 % Critically low 20.5-60.0 [facility] Comment on above: Performed By: #### C BC ####[facility] [address] [place], [place] [address]DrMemo Amina Shawn MANUAL DIFF REQ NO Normal [facility] Comment on above: Performed By: #### C BC ####[facility] [address] [place], [place] [address]DrMemo Amina Shawn MCH (RBC) [Entitic mass] 26.6 pg Normal 25.9-34.0 [facility] Comment on above: Performed By: #### C BC ####[facility] [address] [place], [place] [address]DrMemo Amina Shawn MCHC (RBC) [Mass/Vol] 30.4 g/dL Normal 29.9-35.2 [facility] Comment on above: Performed By: #### C BC ####[facility] [address] [place], [place] [address]DrMemo Kandielda Escobar MCV (RBC) [Entitic vol] 87.7 fL Normal 80.0-94.0 [facility] Comment on above: Performed By: #### C BC ####[facility] [address] [place], [place] [address]DrMemo Kandielda Escobar MONO # 0.5 103/ul Normal 0.3-0.8 [facility] Comment on above: Performed By: #### C BC ####[facility] Spsdkjdnqt3733 [place] [address]Dr. Amina Escobar Monocytes/100 WBC (Bld) 10.0 % Normal 1.7-12.0 [facility] Comment on above: Performed By: #### C BC ####[facility] Rnakupliwi4929 [place] [address]Dr. Amina Escobar NEUT # 3.7 103/ul Normal 1.4-6.5 [facility] Comment on above: Performed By: #### C BC ####[facility] Nojnzkuoyj1772 [place] [address]Dr. Amina Escobar Neutrophils/100 WBC (Bld) 70.1 % Normal 43.0-75.0 [facility] Comment on above: Performed By: #### C BC ####[facility] [address] [place], [place] [address]Dr. Amina Escobar Platelet mean volume (Bld) [Entitic vol] 10.2 fL Normal 9.5-13.5 [facility] Comment on above: Performed By: #### C BC ####[facility] [address] [place], [place] [address]Dr. Amina Escobar PLT 201 103/ul Normal 150-450 [facility] Comment on above: Performed By: #### C BC ####[facility] Lsxcjpludt9566 [place] [address]Dr. Amina Escobar RBC 3.83 106/ul Critically low 4.70-6.10 [facility] Comment on above: Performed By: #### C BC ####[facility] Nmlqvzqonm2477 [place] [id number]. Amina Escobar WBC 5.3 103/ul Normal 4.0-11.0 [facility] Comment on above: Performed By: #### C BC ####[facility] Acwosqyvmf9314 [place] [id number]. 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 This test has not been FDA cleared [...] is terminated or revoked sooner. PERFORMED BY: [facility] [address] [place] [address] PATHOLOGIST TECHNOLOGY SUPPORT ANALYST JAIRO GLYNN M.D. Performed By: #### C OVID 19 [facility] [place] #### [facility] [address] CBC COMPLETE BLOOD COUNTon 0 01-01-2021 Erythrocyte distribution width (RBC) [Ratio] 13.7 % Normal 11.5-15.0 [facility] Comment on above: Order Comment: RUL Performed By: #### 3 0323 #### [facility] [address] [place] [address], [facility] Hematocrit (Bld) [Volume fraction] 37.9 % Low 39.0-50.0 [facility] Comment on above: Order Comment: RUL Performed By: #### 3 0323 #### [facility] [address] [place] [address], [facility] Hemoglobin (Bld) [Mass/Vol] 12.2 g/dL Low 13.0-17.0 [facility] Comment on above: Order Comment: RUL Performed By: #### 3 0323 #### [facility] [address] [place] [address], [facility] MCH (RBC) [Entitic mass] 28.9 pg Normal 27.0-33.0 [facility] Comment on above: Order Comment: RUL Performed By: #### 3 0323 #### [facility] [address] [facility] [address], [facility] MCHC (RBC) [Mass/Vol] 32.2 g/dL Normal 32.0-35.0 [facility] Comment on above: Order Comment: RUL Performed By: #### 3 0323 #### [facility] [address] [facility] [place] [address], [facility] MCV (RBC) [Entitic vol] 89.8 fL Normal 82.0-98.0 [facility] Comment on above: Order Comment: RUL Performed By: #### 3 0323 #### [facility] [address] [place] [address], [facility] Nucleated RBC/100 WBC (Bld) [Ratio] 0 % Normal 0-0 [facility] Comment on above: Order Comment: RUL Performed By: #### 3 0323 #### [facility] [address] [facility] [place] [address], [facility] PLAT CNT 154 10*3/uL Normal 150-400 [facility] Comment on above: Order Comment: RUL Performed By: #### 3 3 #### [facility] [address] [place] [address], [facility] RBC (Bld) [#/Vol] 4.22 10*6/uL Normal 4.20-5.70 [facility] Comment on above: Order Comment: RUL Performed By: #### 3 0323 #### [facility] [address] [place] [address], [place] WBC (Bld) [#/Vol] 7.48 10*3/uL Normal 4.00-10.60 [facility] Comment on above: Order Comment: RUL Performed By: #### 3 0323 #### [facility] [address] [place] [address], [place] COMP METABOLIC PANELon 01-01 Albumin [Mass/Vol] 3.5 g/dL Normal 3.5-5.7 [facility] Comment on above: Order Comment: No: D o not add to previous draw Performed By: #### 1 0070, 52042 #### [facility] [address] [place] [address], [place] ALKALINE PHOSPH 97 IU/L Normal 34-104 [facility] Comment on above: Order Comment: No: D o not add to previous draw Performed By: #### 1 0, 53238 #### [facility] [address] [place] [address], [place] ALT [Catalytic activity/Vol] 14 U/L Normal 7-52 [facility] Comment on above: Order Comment: No: D o not add to previous draw Performed By: #### 1 0, 33118 #### [facility] [address] [place] [address], [place] AST [Catalytic activity/Vol] 14 U/L Normal 13-39 [facility] Comment on above: Order Comment: No: D o not add to previous draw Performed By: #### 1 0, 91649 #### [facility] [address] [place] [address], [place] Bilirubin [Mass/Vol] 1.0 mg/dL Normal 0.3-1.0 [facility] Comment on above: Order Comment: No: D o not add to previous draw Performed By: #### 1 0, 74529 #### [facility] [address] [place] [address], [place] Calcium [Mass/Vol] 8.8 mg/dL Normal 8.6-10.3 [facility] Comment on above: Order Comment: No: D o not add to previous draw Performed By: #### 1 69, 83959 #### [facility] [address] [place] [address], [place] Chloride [Moles/Vol] 104 mmol/L Normal 98-107 [facility] Comment on above: Order Comment: No: D o not add to previous draw Performed By: #### 1 69, 62573 #### [facility] [address] [place] [address], [place] CO2 [Moles/Vol] 26 mmol/L Normal 21-31 [facility] Comment on above: Order Comment: No: D o not add to previous draw Performed By: #### 1 0, 75675 #### [facility] [address] [place] [address], [place] Creatinine [Mass/Vol] 0.94 mg/dL Normal 0.70-1.30 [facility] Comment on above: Order Comment: No: D o not add to previous draw Performed By: #### 1 69, 17003 #### [facility] [address] [place] [address], [place] GFR/1.73 sq M.predicted among blacks MDRD (S/P/Bld) [Vol rate/Area] mL/min/{1.73_m2} Normal >60 [facility] Comment on above: Order Comment: No: D o not add to previous draw Result Comment: Calc ulation may not be valid for patients over 70 years Performed By: #### 1 69, 62675 #### [facility] [address] [place] [address], [place] GFR/1.73 sq M.predicted among non-blacks MDRD (S/P/Bld) [Vol rate/Area] mL/min/{1.73_m2} Normal >60 [facility] Comment on above: Order Comment: No: D o not add to previous draw Result Comment: Calc ulation may not be valid for patients over 70 years Performed By: #### 1 0, 83821 #### [facility] [address] [place] [address], [place] Glucose [Mass/Vol] 107 mg/dL High 70-100 [facility] Comment on above: Order Comment: No: D o not add to previous draw Performed By: #### 1 69, 93838 #### [facility] [address] [place] [address], [place] Potassium [Moles/Vol] 4.0 mmol/L Normal 3.5-5.1 [facility] Comment on above: Order Comment: No: D o not add to previous draw Performed By: #### 1 0, 31422 #### [facility] [address] [place] [address], [place] Protein [Mass/Vol] 6.3 g/dL Normal 6.0-8.3 [facility] Comment on above: Order Comment: No: D o not add to previous draw Performed By: #### 1 69, 13003 #### [facility] [address] [place] [address], [place] Sodium [Moles/Vol] 135 mmol/L Low 136-145 [facility] Comment on above: Order Comment: No: D o not add to previous draw Performed By: #### 1 69, 95226 #### [facility] [address] [place] [address], [place] Urea nitrogen [Mass/Vol] 18 mg/dL Normal 7-25 [facility] Comment on above: Order Comment: No: D o not add to previous draw Performed By: #### 1 0070, 38866 #### [facility] [address] [facility] [place] [address], [facility] MAGNESIUM BLOODon 01-01-2021 Magnesium [Mass/Vol] 1.6 mg/dL Low 1.9-2.7 [facility] Comment on above: Order Comment: No: D o not add to previous draw Performed By: #### 1 0070, 36306 #### [facility] [address] [facility] Cardiovascular Lab Reporton 12-31-2020 Cardiovascular Lab Report [facility] Patient Name: Juan Barcenas MR #: [id number] [facility] Physician: Sissy Schneider M.D. Department of Service Date: 12/31/2020 Medicine Birthdate: 1935 Division of Room #: 3AB [id number] Cardiology Adult Cardiovascular Services [place] [address] Cardiovascular Laboratory Report INDICATION: The patient is [...] femoral vein under ultrasound guidance. INTERVENTIONAL CARDIOLOGY LEGAL SERVICES PROFESSIONAL: Sissy Schneider M.D. CARDIOTHORACIC SURGERY LEGAL SERVICES PROFESSIONAL: Douglas De La Rosa MD. PARKING RAMP ATTENDANT: Rashad Rajput MD. METHODS: The procedure was explained to the patient with risks and benefits. He signed informed consent. He was brought to cath lab tech in a fasting state. Both groin areas were prepped and draped in usual fashion. The procedure was performed in the cath lab tech under conscious sedation. Using ultrasound guidance, access was obtained in the right and left common femoral arteries and after inner cannula angiography confirmed adequate placement, access was upsized to a 6-Polish x 11 cm sheath on both sited. Access was obtained using same technique in the left common femoral vein and a 6-Polish x 11 cm sheath was placed. Preclosure in the right common femoral artery was performed using 2 crossing 6-Polish ProGlide devices and the access was upsized to a 10-Polish x 11 cm sheath. A 6-Polish angled pigtail catheter was advanced through the [...] upsized using a Lunderquist wire to the 16-Polish Murillo eSheath, which was secured in place. A 6-Polish AL1 diagnostic catheter was advanced and using a Glidewire, the aortic valve was crossed and the catheter was then exchanged over wire to a 6-Polish angled pigtail catheter, which was used to place an exchange length Amplatz extra stiff wire in the left ventricle. The Murillo Minerva Ultra 29 mm valve was prepped at nominal volume -2 mL and was advanced across the wrangell aortic valve and under rapid pacing at [...] Schneider M.D. Date Trans: 12/31/2020 04:01 P/monster [id number] cc: Tony Burgos M.D. [address] [place] [phone] Radha Nazario, YANELIS, [facility], D (more content not included)... Normal [facility] Operative Reporton Operative Report MR#: [id number] [facility] Pt. Name: Juan Barcenas Room #: 3AB [id number] Discharge Date: Birthdate: 1935 OPERATIVE REPORT DATE OF SURGERY: 12/31/2020 SURGEON: Douglas De La Rosa MD PREOPERATIVE DIAGNOSES: Severe aortic stenosis. Previous coronary artery bypass grafting. POSTOPERATIVE DIAGNOSES: Severe aortic stenosis. Previous coronary artery bypass grafting. OPERATION: Percutaneous transfemoral transcatheter aortic valve replacement with 29 mm Minerva Ultra valve. CO-SURGEON: Sissy Schneider M.D. KAIAKO KURA TUARUA: Dr. Rajput. ANESTHESIA: MAC. INDICATIONS: This is [...] artery and the sheath was upgraded to 8-Polish sheath. Through the left groin sheath, a pigtail catheter was inserted in the ascending aorta. A temporaryp pacemaker was inserted through the left femoral vein and tested for later use. At this time, the patient was heparinized and right femoral arterial sheath was upgraded over Lunderquist wire to a 16-Polish sheath. An AL4 catheter inserted in the [...] Rosa MD Date Trans: 12/31/2020 05:02 P/monster [id number] cc: Tony Burgos M.D. [address] [place] [phone] Radha Nazario, MSN, [facility], Dept. Of Surgery Mailstop [address] [facility] [address] Normal [facility] TYPE AND SCREENon 12-31-2020 ABO INTERPRETATION O Normal [facility] Comment on above: Performed By: #### 3 9253 #### [facility] [address] [place] [address], [place] RH INTERPRETATION Positive Normal [facility] Comment on above: Performed By: #### 3 0323 #### [facility] [address] [place] [address], [place] BASIC METABOLIC PANELon 05-1 Calcium [Mass/Vol] 9.2 mg/dL Normal 8.6-10.3 [facility] Comment on above: Performed By: #### 3 0323 #### [facility] [address] [place] [address], [place] Chloride [Moles/Vol] 106 mmol/L Normal 98-107 [facility] Comment on above: Performed By: #### 3 0323 #### [facility] [address] [place] [address], [place] CO2 [Moles/Vol] 26 mmol/L Normal 21-31 [facility] Comment on above: Performed By: #### 3 0323 #### [facility] [address] [place] [address], [place] Creatinine [Mass/Vol] 1.02 mg/dL Normal 0.70-1.30 [facility] Comment on above: Performed By: #### 3 0323 #### [facility] [address] [place] [address], [place] GFR/1.73 sq M.predicted among blacks MDRD (S/P/Bld) [Vol rate/Area] mL/min/{1.73_m2} Normal >60 [facility] Comment on above: Result Comment: Calc ulation may not be valid for patients over 70 years Performed By: #### 3 0323 #### [facility] [address] [place] [address], [place] GFR/1.73 sq M.predicted among non-blacks MDRD (S/P/Bld) [Vol rate/Area] mL/min/{1.73_m2} Normal >60 [facility] Comment on above: Result Comment: Calc ulation may not be valid for patients over 70 years Performed By: #### 3 0323 #### [facility] [address] [place] [address], [facility] Glucose [Mass/Vol] 83 mg/dL Normal 70-100 [facility] Comment on above: Performed By: #### 3 0323 #### [facility] [address] [place] [address], [facility] Potassium [Moles/Vol] 4.5 mmol/L Normal 3.5-5.1 [facility] Comment on above: Performed By: #### 3 0323 #### [facility] [address] [place] [address], [facility] Sodium [Moles/Vol] 139 mmol/L Normal 136-145 [facility] Comment on above: Performed By: #### 3 0323 #### [facility] [address] [place] [address], [facility] Urea nitrogen [Mass/Vol] 22 mg/dL Normal 7-25 [facility] Comment on above: Performed By: #### 3 0323 #### [facility] [address] [place] [address], [facility] BNP (B-TYPE NATRIURETIC PEPT MANUEL)on 11-19-2020 Natriuretic peptide B (Bld) [Mass/Vol] 168 pg/mL High 0-100 [facility] Comment on above: Result Comment: Give n the appropriate clinical setting a BNP result of >100 pg/mL indicates congestive heart failure. Performed By: #### 8 5123 #### [facility] [address] [place] [address], [facility] CBC COMPLETE BLOOD COUNTon 0 11-19-2020 Erythrocyte distribution width (RBC) [Ratio] 14.5 % Normal 11.5-15.0 [facility] Comment on above: Performed By: #### 5 0608 #### [facility] [address] [facility] [address] Hematocrit (Bld) [Volume fraction] 38.6 % Low 39.0-50.0 [facility] Comment on above: Performed By: #### 5 0608 #### [facility] [address] [facility] [address] Hemoglobin (Bld) [Mass/Vol] 12.2 g/dL Low 13.0-17.0 [facility] Comment on above: Performed By: #### 5 0608 #### [facility] [address] MCH (RBC) [Entitic mass] 29.0 pg Normal 27.0-33.0 [facility] Comment on above: Performed By: #### 5 0608 #### [facility] [address] [facility]. [address] MCHC (RBC) [Mass/Vol] 31.6 g/dL Low 32.0-35.0 [facility] Comment on above: Performed By: #### 5 0608 #### [facility] [address] MCV (RBC) [Entitic vol] 91.7 fL Normal 82.0-98.0 [facility] Comment on above: Performed By: #### 5 0608 #### [facility] [address] Nucleated RBC/100 WBC (Bld) [Ratio] 0 % Normal 0-0 [facility] Comment on above: Performed By: #### 5 0608 #### [facility] [address] [place] [address], [facility] PLAT CNT 265 10*3/uL Normal 150-400 [facility] Comment on above: Performed By: #### 5 0608 #### [facility] [address] [facility] [place] [address], [facility] RBC (Bld) [#/Vol] 4.21 10*6/uL Normal 4.20-5.70 [facility] Comment on above: Performed By: #### 5 0608 #### [facility] [address] [place] [address], [facility] WBC (Bld) [#/Vol] 6.97 10*3/uL Normal 4.00-10.60 [facility] Comment on above: Performed By: #### 5 0608 #### [facility] [address] [place] [address], [facility] CHEST AND LATERALon 11-20-19 CHEST AND LATERAL [facility] Department of Radiology [address] [place] [phone] Patient Name: JUAN BARCENAS : 1935 Sex: M Age: Race: White Pt. Location: Patient Status: O Ordered Date: 11/18/2020 4:20:00 PM Completed Date: 11/19/2020 11:30 AM Requesting Provider: SISSY SCHNEIDER V Attending Provider: SISSY SCHNEIDER V Report Copy To: TONY BURGOS Signs & Symptoms: Z95.0 Presence of cardiac pacemaker I10 History: [place] Comments: , PA and lateral Exam: CHEST [...] abnormalities Electronically signed: Mandeep Alvarado. Transcribed by: [email or web address], User Resident: Electronically Signed by: MANDEEP ALVARADO @ 11/19/2020 02:46 PM Normal [facility] Comment on above: Order Comment: , PA and lateral PROCALCITONINon 11-19-2020 PROCALCITONIN 0.05 ng/mL Normal 0.00-0.10 [facility] Comment on above: Result Comment: Susp ected [...] PCT<0.5ng/mL Performed By: #### 3 1488 #### [address] *AFB CULTUREon 11-05-2020 *AFB CULTURE Clinical Report: (D) Specimen/Source: TISSUE/LUNG BIOPSY Collected: 11/05/2020 15:40 Status: Final Last Updated: 12/18/2020 14:00 (1) RUL AFB (Final) No Acid Fast Bacilli Seen CULT RES (Final) No growth after 42 days of incubation Normal [facility] Comment on above: Order Comment: RUL Performed By: #### 3 0832 #### [address] *FUNGAL CULTUREon 11-05-2020 *FUNGAL CULTURE Clinical Report: (D) Specimen/Source: TISSUE/LUNG BIOPSY Collected: 11/05/2020 15:40 Status: Final Last Updated: 12/10/2020 08:21 (1) RUL FS (Final) No Yeast or Fungal Elements Seen CULT RES (Final) Culture negative for fungus Normal [facility] Comment on above: Order Comment: RUL Performed By: #### 3 0323 #### [address] *TISSUE CULTUREon 11-05-2020 *TISSUE CULTURE Clinical Report: (D) Specimen/Source: TISSUE/LUNG BIOPSY Collected: 11/05/2020 15:40 Status: Final Last Updated: 11/10/2020 10:46 (1) RUL GRAM (Final) No Polys Seen Rare Gram Positive Cocci In Chains CULT RES (Final) No Growth Day 5 Normal [facility] Comment on above: Order Comment: RUL Performed By: #### 5 0608 #### [address] FLUORO FOR BRONCHOSCOPYon FLUORO FOR BRONCHOSCOPY [facility] Department of Radiology [address] [place] [address] Patient Name: JUAN BARCENAS D : 1935 Sex: M Age: Race: White [...] provided. Electronically signed: Milvia Rosales. Transcribed by: [email or web address], User Resident: Electronically Signed by: MILVIA ROSALES @ 11/06/2020 11:17 AM Normal [facility] Comment on above: Order Comment: [facility]ark Operative Reporton 1 Operative Report MR#: [id number] S [facility] Pt. Name: Juan Barcenas Room #: 0C Discharge Date: Birthdate: 1935 OPERATIVE REPORT DATE OF SURGERY: 11/05/2020 SURGEON: Nicole Guerrero MD EBUS-TBNA, fluoroscopic guided transbronchial biopsies and BAL procedure note Patient: Juan Barcenas Date: 11/05/2020 Indication: Diagnostic/therapeutic bronchoscopy Procedure Advanced Practice Professional: Shelbi Garrido MD Supervising Attending: Nicole Guerrero [...] Garrido MD Date Trans: 11/05/2020 04:12 P/ [id number] cc: Tony Burgos M.D. [address] [place] [phone] Normal [facility] POC GLUCOSE LABon 11-05-2020 Glucose [Mass/Vol] 90 mg/dL Normal 70-100 [facility] Comment on above: Performed By: #### [id number] #### [facility] [address] POC SARS COV2 ANTIGEN NEGATI VEon 11-05-2020 POC SARS COV2 ANTIGEN NEG Negative Normal NEGATIVE [facility] Comment on above: Result Comment: Nega tive [...] signs and symptoms consistent with COVID-19. The [employer] COVID-19 Antigen test is a lateral flow [...] Accreditation. Performed By: #### 3 [id number] #### [address] PORTABLE CHEST 1 VIEWon 10-11 PORTABLE CHEST 1 VIEW [facility] Department of Radiology [address] [place] [id number] Patient Name: JUAN ABRCENAS : 1935 Sex: M Age: Race: White Pt. Location: OUTP Patient Status: O Ordered Date: 11/05/2020 4:00:00 PM Completed Date: 11/05/2020 05:33 PM Requesting Provider: SHELBI GARRIDO Attending Provider: NICOEL GUERRERO Report Copy To: Signs & Symptoms: [...] pneumothorax. Electronically signed: Gilberto Payton. Transcribed by: [email or web address], User Resident: Electronically Signed by: GILBERTO PAYTON @ 11/05/2020 05:34 PM Normal [facility] Comment on above: Order Comment: evalu ate for Pneumothorax *AFB CULTUREon 10-29-2020 *AFB CULTURE Clinical Report: (D) Specimen/Source: RESPIRATORY/BRONCHEAL ALVEOLAR LAVAGE Collected: 10/29/2020 15:35 Status: Final Last Updated: 12/18/2020 14:00 (1) RUL BAL AFB (Final) No Acid Fast Bacilli Seen CULT RES (Final) No growth after 42 days of incubation Normal [facility] Comment on above: Order Comment: RUL B AL Performed By: #### [id number] #### [facility] [address] *FUNGAL CULTUREon 10-29-2020 *FUNGAL CULTURE Clinical Report: (D) Specimen/Source: RESPIRATORY/BRONCHEAL ALVEOLAR LAVAGE Collected: 10/29/2020 15:35 Status: Final Last Updated: 11/12/2020 14:16 (1) RUL BAL FS (Final) No Yeast or Fungal Elements Seen ISO (Final) Radha albicans Presumptive Normal [facility] Comment on above: Order Comment: RUL B AL Performed By: #### [id number] #### [facility] [address] *RESPIRATORY CULTUREon 10-29 *RESPIRATORY CULTURE Clinical Report: (D ) Specimen/Source: RESPIRATORY/BRONCHEAL ALVEOLAR LAVAGE Collected: 10/29/2020 15:35 Status: Final Last Updated: 11/09/2020 06:44 (1) RUL BAL GRAM (Final) Few Polys Rare Ciliated Columnar Epithelial Cells No Bacteria Seen CYTOSPUN (Final) This Gram Stain was done on a cytocentrifuged specimen ISO (Final) Colonies Consistent with Upper Respiratory Nerissa >10,000 Cfu/mL Normal [facility] Comment on above: Order Comment: RUL Performed By: #### [id number] #### [address] CTA ABDOMEN AND PELVISon CTA ABDOMEN AND PELVIS [facility] Department of Radiology [address] [place] [phone] Patient Name: JUAN BARCENAS : 1935 Sex: M Age: Race: White Pt. Location: 30 Patient Status: D Ordered Date: 10/15/2020 10:55:00 AM Completed Date: 10/22/2020 02:56 PM Requesting Provider: SISSY SCHNEIDER V Attending Provider: SISSY SCHNEIDER V Report Copy To: TONY BURGOS Signs & Symptoms: I35.0 Nonrheumatic aortic (valve) stenosis I10 History: [place] medicare no pc required [address] cta abdomen pelvis / I35.0 med nec [...] achievable Electronically signed: Dav Lopez. Transcribed by: [email or web address], User Resident: Electronically Signed by: DAV LOPEZ @ 10/24/2020 09:06 AM Normal [facility] Comment on above: Order Comment: (TAVR ) Protocol CTA CHESTon 10-22-2020 CTA CHEST [facility] Department of Radiology [address] [place] [address] Patient Name: JUAN BARCENAS : 1935 Sex: M Age: Race: White Pt. Location: 30 Patient Status: D Ordered Date: 10/15/2020 10:55:00 AM Completed Date: 10/22/2020 02:56 PM Requesting Provider: SISSY SCHNEIDER V Attending Provider: SISSY SCHNEIDER V Report Copy To: TONY BURGOS Signs & Symptoms: I35.0 Nonrheumatic aortic (valve) stenosis I10 History: [place] medicare no pc required cta chest 55685/I35.0 med nec passed *kw Comments: EKG gated-TAVR [...] 3 cusped view, anterior view and no SECURITY OFFICER SUPERVISOR-CAU view are obtained in 3-D. The annulus [...] place. Electronically signed: Dav Lopez. Transcribed by: [email or web address], User Resident: Electronically Signed by: DAV LOPEZ @ 10/24/ (more content not included)... Normal [facility] Comment on above: Order Comment: EKG g ated-TAVR protocol Cardiovascular Lab Reporton 10-18-2020 Cardiovascular Lab Report [facility] Patient Name: Juan Barcenas Usama MR #: [id number] [facility] Physician: Sissy Schneider M.D. Department of Service Date: 10/17/2020 Medicine Birthdate: 1935 Division of Room #: Cardiology Adult Cardiovascular Services [place] [id number] Cardiovascular Laboratory Report INDICATION: The patient is an 85-year-old man with history of severe aortic valve stenosis. He has prior history of bypass surgery in the past. He recently was admitted to the [facility] with decompensated heart failure and pneumonia. He was evaluated in Cardiology Clinic and was referred for cardiac catheterization in preparation for transcatheter aortic valve replacement. PROCEDURES: 1. Right heart catheterization. 2. Bilateral selective coronary angiography. 3. Graft angiography. 4. Limited right common femoral angiography. METHODS: Procedure was explained to the patient with risks and benefits. He signed consent. He was brought to cath lab tech in a fasting state. The right groin area was prepped and draped in usual fashion. Using micropuncture technique, the right common femoral artery was accessed. The inner cannula was advanced. Limited right common femoral angiography was performed followed by upsizing to a 5-Polish x 11 cm sheath. Access was also obtained in the same technique using the micropuncture technique in the right common femoral vein and a 6-Polish x 11 cm sheath was placed. A 6-Polish Hart catheter was used for right catheterization with measurement of pressures and calculation of cardiac output using the estimated Zion method. Bilateral selective coronary angiography was then performed using 5-Polish JL4 and JR4 diagnostic catheters. The 5-Polish JR4 diagnostic catheter was used to selectively [...] opacification. The catheter was then removed. A 5-Polish MIESHA diagnostic catheter was used to selectively [...] grafts. 3. Moderately elevated filling pressures. 4. [id number] pulmonary hypertension. 5. Mildly reduced cardiac output and cardiac index. RECOMMENDATIONS: 1. Continue current medical therapy. 2. The patient will continue to be evaluated for transcatheter aortic valve replacement. Electronically Signed by: Sissy Schneider M.D. 10/20/2020 05:02 P Sissy Schneider M.D. Date Dict: 10/17/2020/03:26 P/Sissy Schneider M.D. Date Trans: 10/18/2020 04:41 A/monster [id number] cc: Tony Burgos M.D. [address] [place] [id number] [facility] Vital Signs Date Time Vital Sign Value Performing Clinician Reynaldo maharaj 11-04-2021 14:41-0400 Blood Pressure Location Shelbi ROMEROClark [facility] 11-04-2021 14:41-0400 Diastolic blood pressure 76 mm[Hg] Shelbi ABRAHAM [facility] 11-04-2021 14:41-0400 Heart rate 68 /min Shelbi ROMEROL [facility] 11-04-2021 14:41-0400 Respiratory rate 16 /min Shelib ABRAHAM [facility] 11-04-2021 14:410400 Systolic blood pressure 144 mm[Hg] Shelbi ABRAHAM [facility] [place] Encounters Encounter Date Encounter Type Care Provider Facility Start: 05-30-2024 End: 05-30-2024 ambulatory [facility] Start: 05-23-2024 End: 05-23-2024 ambulatory [facility] Start: 04-17-2024 End: 04-17-2024 ambulatory RETAIL SECURITY PROFESSIONAL Isabela Bowman Facility:[facility] Start: 10-26-2023 End: 10-26-2023 ambulatory [facility] Start: 10-19-2023 End: 10-19-2023 ambulatory [facility] Start: 09-29-2023 End: 09-29-2023 ambulatory JAMES Bowman Facility:[facility] Start: 12-04-2022 End: 12-05-[address] TONY BURGOS . Facility: Start: 10-01-2022 End: 10-02-[address] TONY BURGOS . Facility:[facility] Start: 09-24-2022 End: 09-25-[address] TONY BURGOS . Facility:[facility] Start: 08-17-2022 Encounter for other preprocedural examination [facility] Start: 08-12-2022 End: 08-13-[address] [...] Patient encounter procedure Shelbi ABRAHAM [facility] Start: 12-31-2020 End: 01-01-2021 Evaluation and management of inpatient RADHA NAZARIO Facility:[facility] Start: 11-05-2020 End: 11-06-2020 ambulatory SC Facility:[facility] Start: 10-17-2020 End: 10-18-2020 ambulatory TONY BURGOS Facility:[facility] Procedures Date Procedure Procedure Detail Performing Clinician [...] A ELTAHAWY Start: 12-31-2020 Antibody screen TONY ALONZO Skyla Comment on above: Performed By: #### 3 [id number] #### [facility] [address] Start: 12-31-2020 FLUOROSCOPY OF THORA CIC AORTA USING LOW OSMOLAR CONTRAST DOUGLAS DE LA ROSA Start: 12-31-2020 REPLACEMENT OF AORTI C VALVE WITH ZOOPLASTIC, PERC APPROACH D[facility]AS DE [facility] Start: 12-10-2020 Replacement of aortic valve Sehlbi ABRAHAM Start: 11-05-2020 ANESTH CHEST PROCEDURE TONY BURGOS Start: 11-05-2020 BRONCH EBUS SAMPLNG 3/> NODE NICOLE GUERRERO Start: 10-10-2020 Biopsy of lung Shelbi ABRAHAM Start: 10-10-2020 Bronchoscopy Shelbi SHAFER LL Start: 07-12-2013 Cardiac pacemaker, d evice (physical object) Shelbi ABRAHAM Start: 07-12-1997 Coronary artery bypa ss grafts x 3 Shelbi ABRAHAM Start: 07-12-1992 Repair of right ingu inal hernia Shelbi NILL Start: 07-12-1980 Repair of left ingui nal hernia Shelbi ROMEROL Cardioversion Shelbi ABRAHAM Plan of Treatment Date Care Activity Detail Author Start: 09-11-2024 ambulatory Ambulatory Facility:[facility] Payers Date Payer Category Payer Medicare [id number] 1957 Self-pay [id number] 1957 Unknown [id number] 1935 Unknown [id number] 2.16.8 40.1.218625.3.579.2.647 1935 Unknown [id number] 2.16.8 40.1.015129.3.579.2.647 1935 Unknown [id number] 2.16.8 40.1.683397.3.579.2.647 1935 Unknown [id number] 2.16.84 0.1.663901.3.579.2.593 1935 Unknown [id number] 2.16.84 0.1.223944.3.579.2.593 1935 Unknown [id number] 2.16.84 0.1.316237.3.579.2.593 1935 Unknown [id number] 2.16.84 0.1.291334.3.579.2.593 1935 Unknown [id number] 2.16.84 0.1.436952.3.579.2.593 1937 Unknown [id number] 2.16.84 0.1.773450.3.579.2.593 1937 Unknown [id number] 2.16.84 0.1.964541.3.579.2.593 1937 Unknown [id number] 2.16.84 0.1.810830.3.579.2.593 1937 Unknown [id number] 2.16.84 0.1.119317.3.579.2.593 1937 Unknown [id number] 2.16.84 0.1.038115.3.579.2.593 1937 Unknown [id number] 2.16.84 0.1.168102.3.579.2.593 1937 Unknown [id number] 2.16.84 0.1.031358.3.579.2.593 1937 Unknown [id number] 2.16.84 0.1.264259.3.579.2.593 1937 Unknown [id number] 2.16.84 0.1.623827.3.579.2.593 1937 Unknown [id number] 2.16.84 0.1.116227.3.579.2.593 1937 Unknown [id number] 2.16.84 0.1.085197.3.579.2.593 1937 Unknown [id number] 2.16.84 0.1.209326.3.579.2.593 1937 Unknown [id number] 2.16.84 0.1.721939.3.579.2.593 1937 Unknown [id number] 2.16.84 0.1.699378.3.579.2.593 1937 Unknown [id number] 2.16.84 0.1.436393.3.579.2.593 1937 Unknown [id number] 2.16.84 0.1.999207.3.579.2.593 1937 Unknown [id number] 2.16.84 0.1.636109.3.579.2.593 1937 Unknown [id number] 2.16.84 0.1.449971.3.579.2.593 1937 Unknown [id number] 2.16.84 0.1.855802.3.579.2.593 1937 Unknown [id number] 2.16.84 0.1.783393.3.579.2.593 1937 Unknown [id number] 2.16.84 0.1.461913.3.579.2.593 1937 Unknown [id number] 2.16.84 0.1.920634.3.579.2.593 1937 Unknown [id number] 2.16.84 0.1.241999.3.579.2.593 1937 Unknown [id number] 2.16.84 0.1.438702.3.579.2.593 1937 Unknown [id number] 2.16.84 0.1.659582.3.579.2.593 1937 Unknown [id number] 2.16.84 0.1.159829.3.579.2.593 1937 Unknown [id number] 2.16.84 0.1.920081.3.579.2.593 1937 Unknown [id number] 2.16.84 0.1.591904.3.579.2.593 1937 Unknown [id number] 2.16.8 40.1.430275.3.579.2.727 1935 Unknown [id number] 2.16.8 40.1.287910.3.579.2.727 1935 Unknown [id number] 2.16.8 40.1.381227.3.579.2.727 Social History Date Type Detail Facility Start: 11-04-2021 Tobacco smoking status Ex-smoker (almaz monson) [facility] [place] Tobacco smoking status Never [facility] [place] Sex Assigned At Male Eulalia matute [facility] [place] Progress note 05-30-2024 Note Date & Type Note Facility 05-30-2024 Note Patient here for 6 m o follow up afib/flutter, aortic valve stenosis s/p TAVR, CAD, and chronic systolic heart failure. Had echo back in November 2023, at lasix was increased to 60mg daily at that time. Had labs and device check last month. Patient denies chest pain, palpitations, and lightheadedness/syncope. He states his COOK is the same as it was 6 months ago. Review of Systems Cardiovascular: Positive for dyspnea on exertion (when walking quickly). Respiratory: Positive for cough. All other systems reviewed and are negative. [facility] Progress note 05-30-2024 Note Date & Type Note Facility 05-30-2024 Note Cardiovascular [facility] SUBJECTIVE Chief Complaint Patient presents with Coronary Artery Disease Congestive Heart Failure Valve Disorder Juan Barcenas is a 88 y.o. male here for follow-up. His daughter accompanied him today. HPI PMHx: HFrEF, pacemaker induced cardiomyopathy s/p THERAPIST RADIATION-P, aortic stenosis s/p TAVR on 12/31/2020 with Minerva 29 mm valve, CAD s/p CABG, PAF, HTN, CASPER 05/30/2024 He has COOK - this seems to be stable. Denies CP, orthopnea, PND, LE edema, palpitations, syncope. 10/19/2023 He states he has been feeling [...] here for follow s/p BiV upgrade for THERAPIST RADIATION-P. His blood pressure readings are elevated and he is currently on Coreg 18.75mg bid, Cozaar 100 once daily, Norvasc 10 mg once daily. on this his blood pressure readings somewhat markedly elevated in the 160-180 range at 8 AM to 9 AM readings in the afternoon readings are usually in the 130-150 range. he feels good after the THERAPIST RADIATION upgrade. He had reduced EF in 02/11/2022 [...] other occasions he was noted to have wrangell conduction. 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 Overweight with body mass index (BMI) 25.0-29.9 Polymyalgia rheumatica (CMS/HCC) Stage 3 chronic kidney disease (CMS/HCC) CHF (congestive heart failure) (CMS/HCC) GI (gastrointestinal bleed) NSVT (nonsustained ventricular tachycardia) (CMS/HCC) Stenosis of left carotid artery Pure hypercholesterolemia Past Medical History: Diagnosis Date Abnormal ECG Arrhythmia Arthritis Atrial fibrillation (CMS/HCC) CHF (congestive heart failure) (CMS/HCC) Coronary artery disease GI (gastrointestinal bleed) Heart valve disease HL (hearing loss) Hyperlipidemia Hypertension Family History Problem Relation Name Age of Onset Stroke Mother Other (LYPH[place]) Father Social History Tobacco Use Smoking status: Former Types: Cigarettes Passive exposure: Past Smokeless tobacco: Never Vaping Use Vaping status: Never Used Substance Use Topics Alcohol use: Never Drug use: Never No Known Allergies ROS Cardiovascular: Positive for dyspnea on exertion ( little bit ). Respiratory: Positive for cough. All other systems reviewed and are negative. OBJECTIVE Visit Vitals BP 138/72 (BP Locat (more content not included)... [facility] Progress note 10-19-2023 Note Date & Type Note Facility 10-19-2023 Note Cardiovascular [facility] SUBJECTIVE No chief complaint on file. Juan Barcenas is a 88 y.o. male here for follow-up. His daughter accompanied him today. HPI PMHx: HFrEF, pacemaker induced cardiomyopathy s/p THERAPIST RADIATION-P, aortic stenosis s/p TAVR on 12/31/2020 with [...] here for follow s/p BiV upgrade for THERAPIST RADIATION-P. His blood pressure readings are elevated and he is currently on Coreg 18.75mg bid, Cozaar 100 once daily, Norvasc 10 mg once daily. on this his blood pressure readings somewhat markedly elevated in the 160-180 range at 8 AM to 9 AM readings in the afternoon readings are usually in the 130-150 range. he feels good after the THERAPIST RADIATION upgrade. He had reduced EF in 02/11/2022 [...] other occasions he was noted to have wrangell conduction. 1 so that showed (90 range Patient Active Problem List Diagnosis Aortic valve disorder Aortic valve stenosis Presence of cardiac resynchronization therapy pacemaker (THERAPIST RADIATION-P) Pacing-induced cardiomyopathy (CMS/HCC) Coronary arteriosclerosis Dizziness and giddiness Dyspnea Essential hypertension Hyperlipidemia Joint pain Local infection of skin and subcutaneous tissue Pulmonary emphysema (CMS/HCC) Paroxysmal atrial fibrillation (CMS/HCC) Syncope and collapse Atrial flutter (CMS/HCC) Acute diastolic heart failure (CMS/HCC) Adenomatous polyp of colon Anemia Iron deficiency anemia senior living current use of anticoagulant therapy Overweight with [...] 200 mg table (more content not included)... [facility] Progress note 10-19-2023 Note Date & Type [...] All other systems reviewed and are negative. [facility] Clinical Note 04-25-2022 Note Date & Type Note Facility 04-25-2022 Note [facility] Discharge summary note 01-02-2021 Note Date & Type Note Facility 01-02-2021 Note MR#: [id number] I [facility] Pt. Name: Juan Barcenas Admitted: 12/31/2020 Discharged: [...] severe symptomatic aortic stenosis. He presented to [facility] on 12/31/2020 for planned transcatheter aortic valve [...] P/Nicole Dallas MD Date Trans: 01/02/2021 08:39 A/monster [id number] cc: Tony Burgos M.D. [address] [place] [phone] Sissy Schneider M.D. Heart Failure/ Transplant Mail[facility] [phone] [facility] [address] Radha Nazario, MSN, SPORTS MARKETING SPECIALIST [facility], Dept. Of Surgery [facility] [phone] [facility] [phone] [facility] Evaluation + Plan note Note Date & Type Note Facility Evaluation + Plan note No data available for this section [facility] [place] [facility] Discharge instructions Note Date & Type Note Facility Hospital Discharge instructions No data available for this section [facility] [place] Summary Purpose Family History No Family History [...] and content) DATE CREATED AUTHOR 09/20/2021 [facility] DATE CREATED AUTHOR AUTHOR'S ORGANIZ ATION 12/17/2021 [facility] DATE CREATED AUTHOR AUTHOR'S ORGANIZ ATION 12/18/2022 [facility] DATE CREATED AUTHOR AUTHOR'S ORGANIZ ATION 04/18/2024 [facility] DATE CREATED AUTHOR AUTHOR'S ORGANIZ ATION 06/09/2024 [facility] FOR RECORDS PERTAINING TO PATIENTS WHO [...] BE BASED ON THE PRIMARY CLINICAL RECORDS. [facility]. provides no warranty or guarantee of the accuracy or completeness of information in this document.
[2024-09-06 12:05] LABS: Alanine Aminotransferase 15 U/L (16-63); Albumin Globulin Ratio 0.9; Albumin Level 3.7 g/dL (3.4-5.0); Alkaline Phosphatase 189 U/L (46-116); Anion Gap 13.6; Aspartate Amino Transferase 12 U/L (15-37); BUN Creatinine Ratio 20.6; Bilirubin Direct 0.1 mg/dL (0.0-0.2); Bilirubin Total 0.5 mg/dL (0.2-1.0); Calcium 8.7 mg/dL (8.5-10.1); Carbon Dioxide 25.3 mmol/L (21.0-32.0); Chloride 108 mmol/L (98-107); Chol HDL Ratio 2.9; Cholesterol 138 mg/dL (<=200); Estimated GFR (African America 48 (>=60 mL/min/1.73m^2); Estimated GFR (Non-African Ame 40 (>=60 mL/min/1.73m^2); Globulin 3.9 g/dL; Glucose 99 mg/dL (74-106); HDL Cholesterol 47 mg/dL (40-60); LDL Cholesterol Calculated 79.8 mg/dL; Potassium 4.9 mmol/L (3.5-5.1); Sodium 142 mmol/L (136-145); Total Protein 7.6 g/dL (6.4-8.2); Triglycerides 56 mg/dL (<=150); VLDL CHOLESTEROL 11.2 mg/dL
== END 2024-09-06 09:31 | disposition home or self-care (01) ==
LOC: LAB 09:33
PROVIDERS: PCP Family Medicine; Visit Provider Internal Medicine Interventional Cardiology
DX: E78.2 Mixed hyperlipidemia (principal); I50.22 Chronic systolic (congestive) heart failure
CPT/HCPCS: 36415; 80048; 80061; 80076; 83880

== ENCOUNTER 2024-09-15 10:02 | Outpatient (OUT) | payer MEDICARE, SELFPAY ==
--- NOTE | 2024-09-15 10:00 | CA_ITS ---
Patient Name: SHALA ARENAS MR#: [id number] : 1935 Exam Date: 09/15/2024 Ordering Doctor: DR SISSY GARCIA M.D. ECHOCARDIOGRAM REPORT PROCEDURE: CA ECHO DOPPLER COMPLETE INDICATIONS: Heart failure with reduced ejection fraction, CABGx3, pacemaker, aortic valve replacemant COMPARISON: None. DESCRIPTION: COMPLETE ECHOCARDIOGRAM Real-time transthoracic echocardiography with 2D, M-mode, spectral and color flow Doppler performed. QUALITY: Technical quality was good. LEFT VENTRICLE: Normal chamber size. Abnormal septal motion due to prior open heart surgery. Systolic function is normal. LV EF: Normal left ventricular ejection fraction, (55%). DIASTOLIC: Diastolic function is indeterminate. ATRIAL SEPTUM: Visually appears intact. LEFT ATRIUM: Severe dilatation. RIGHT ATRIUM: Severe dilatation. RIGHT VENTRICLE: Moderate dilatation. Normal systolic function. Pacer wire present. TRICUSPID VALVE: Normal mobility and thickness. No stenosis with mild to moderate regurgitation. Doppler studies reveal moderately (45-60) elevated right sided pressures. RVSP 51 mmHg MITRAL VALVE: Normal mobility and thickness. No evidence of mitral valve stenosis. Moderate mitral annular calcification. Mild to moderate eccentric mitral regurgitation with a posteriorly directed jet. AORTIC VALVE: Transcatheter aortic valve (TAVR) appears well seated in the aortic position with normal Doppler flows. Mean gradient 8 mmHg. Trivial aortic regurgitation. AORTIC ROOT: Normal diameter and appearance, measuring 3.5 cm. PULMONIC VALVE: Normal thickness and mobility. No stenosis. No regurgitation. PERICARDIUM: No evidence of pericardial effusion. IVC: IVC is dilated (2.5 cm), does not collapse. PLEURA: CONCLUSION: 1. Normal left ventricular systolic function. Estimated LVEF is 55%. 2. Moderately dilated right ventricle with normal systolic function. 3. Severe biatrial dilatation. 4. 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 5. Mild to moderate mitral regurgitation. 6. Moderately elevated right-sided pressures. RVSP is 51 mmHg. 7. No pericardial effusion. Adult Echocardiography Procedure Report Left Ventricle LVEDD (3.7 - 5.6 cm): 5.62 cm LVESD (2.2 - 4.0 cm): 4.43 cm LVIVS thickness (0.6 - 1.2 cm): 1.18 cm LVPW thickness (0.5 - 1.0 cm): 0.99 cm e': 0.14 m/s E - e': 5.87 LVOT Max Gradient: 2.88 mm[Hg] LVOT Area (cm2): 0.85 m/s Peak Velocity (LVOT): 0.85 m/s Mean Velocity (LVOT): 0.56 m/s LVOT Diameter 2.20 cm Left Atrium LA Volume Index (2D A2C): 85.06 ml/m2 Left Atrium Systolic Dimension: 5.73 cm Mitral Valve MV E to A Ratio: 1.12 Mitral Valve A-Wave Peak Velocity: 0.72 m/s Mitral Valve E-Wave Peak Velocity: 0.81 m/s Right Ventricle Aorta AO Root Diam: 3.51 cm Aortic Valve AoV Area (Peak Danilo): 1.64 cm2, 1.64 cm2 AoV Area (VTI): 1.89 cm2, 1.89 cm2 Peak Velocity(Antegrade Flow): 1.97 m/s Peak Gradient(Antegrade Flow): 15.48 mm[Hg] Mean Velocity(Antegrade Flow): 1.31 m/s Mean Gradient(Antegrade Flow): 7.98 mm[Hg] Velocity Time Integral: 46.44 cm Tricuspid Valve Peak Velocity (Regurgitant Flow): 3.00 m/s, 2.86 m/s, 2.71 m/s, 2.90 m/s Pulmonic Valve Mean Gradient: 1.57 mm[Hg] Mean Velocity: 0.59 m/s Peak Velocity: 0.90 m/s, 0.75 m/s Peak Gradient: 2.23 mm[Hg], 3.27 mm[Hg] Right Atrium Right Atrium Systolic Pressure: 154.29 ml, 154.29 ml Dictated by: Sissy Garcia M.D. on 09/15/2024 at 17:31 Approved by: Sissy Garcia M.D. on 09/15/2024 at 17:39
--- OUTSIDE RECORDS SUMMARY | 2024-09-15 10:19 | XMS_ITS | CCD ---
Author Organization [facility] Care Team Providers Care Inspector Wire [employer] Name Role Phone TONY BURGOS Primary Care Unavailable TONY BURGOS Referring Unavailable UNKNOWN, PROVIDER Admitting Unavailable UNKNOWN, PROVIDER Attending Unavailable RADHA CHANDLER Referring Unavailable TONY BURGOS Primary Care Unavailable UNKNOWN, PROVIDER Attending Unavailable UNKNOWN, PROVIDER Admitting Unavailable DOUGLAS DE LA ROSA Surgeon Unavailable [place] Procedure Practitioner Unavailab le [place] Procedure Practitioner Unavailab will FARIAS, GREGORIOAB A Surgeon Unavailable [place] Procedure Practitioner Unavailab TONY Hsu Referring Unavailable TONY BURGOS Primary Care Unavailable NICOLE GUERRERO Admitting Unavailable NICOLE GUERRERO Attending Unavailable NICOLE GUERRERO Surgeon Unavailable TONY BURGOS Primary Care Physician [phone] BURGOS ., DR TONY Latham Primary Care Unavailable OLIVIA BARAJAS Attending Unavailable OLIVIA BARAJAS Admitting Unavailable BURGOS ., DR TONY Latham Primary Care Unavailable UBRGOS ., DR TONY Latham Attending Unavailable BURGOS [...] DR TONY Latham Primary Care Unavailable ROBIN ADLER Admitting Unavailable WEST, DR JUSTIN Mcneill Consulting Unavailable ROBIN ADLER Attending Unavailable ROBIN ADLER Consulting Unavailable BURGOS ., DR TONY Latham [...] DR TONY Latham Primary Care Unavailable SISSY GARCIA Consulting Unavailable SISSY GARCIA Attending Unavailable SISSY GARCIA Admitting Unavailable BURGOS ., DR TONY Latham [...] BURGOS ., DR TONY Latham Admitting Unavailable [place], DR JUSTIN Mcneill Consulting Unavailable ALBERTO VIZCAINO [...] DR TONY Latham Primary Care Unavailable ROBIN ADLER Consulting Unavailable ROBIN ADLER Admitting Unavailable ROBIN ADLER Attending Unavailable LAVERNE ., DR TONY Latham Primary Care Unavailable SHAIKH Shlomo ROCHA Attending Unavailable SHAIKH Shlomo ROCHA Admitting Unavailable ROBIN ADLER Referring Unavailable OLIVIA BARAJAS Attending Unavailable SISSY GARCIA Attending Unavailable OLIVIA BARAJAS Attending Unavailable ROBIN ADLER Referring Unavailable Nesha Valencia Attending Unavailable Isabela Bowman Attending Unavailable GracieIsabela beasley Attending Unavailable GracieIsabela beasley Attending Unavailable Isabela Bowman Attending Unavailable Allergies Allergy Classification Reported Allergen(s) Allergy Type Date of Onset Reaction(s) Facility (1 source) No Known Medication Allergies; Translations: [No Known Medication Allergies] Propensity to adverse reactions (disorder) [facility] Repository Medications Current Medications Medication Drug Class(es) [...] Active Problems Problem Classification Problem Date Documented Da te Episodic/Chronic Cardiac and circulatory congenital anomalies (1 source) Arteriovenous malformation, other site; Translations: [ARTERIOVENOUS MALFORMATION OT SITE] Onset: 2 Chronic Cardiac dysrhythmias (9 sources) Atrial fibrillation with rapid ventricular response; Translations: [Unspecified atrial fibrillation] Onset: 2 10-27-2021 Chronic Chronic kidney disease (2 sources) Chronic kidney disease stage 3; Translations: [Chronic kidney disease, unspecified] Onset: 2 10-27-2021 Chronic Chronic obstructive pulmonary disease and bronchiectasis (1 source) Emphysema, unspecified; Translations: [EMPHYSEMA UNSPECIFIED] Onset: 2 Chronic Conduction disorders (9 sources) Presence of cardiac pacemaker; Translations: [Encounter for adjustment and management of automatic implantable cardiac defibrillator] Onset: 2 Chronic Congestive heart failure; nonhypertensive (12 sources) Acute diastolic heart failure; Translations: [Diastolic heart failure] Onset: 2 10-27-2021 Chronic Coronary atherosclerosis and other heart disease (3 sources) Atherosclerotic heart disease of [place] coronary artery without angina pectoris; Translations: [ASHD ZUNI CA W/O ANGINA PECTORIS] Onset: 2 Chronic Coronary atherosclerosis and other heart disease (3 sources) Presence of aortocoronary bypass graft; Translations: [PRESENCE AORTOCORONARY BYPASS GRAFT] Onset: 2 Episodic Deficiency and other anemia (5 sources) Iron deficiency anemia secondary to blood loss (chronic); Translations: [IRON DEFIC ANEMIA SEC BLD LOSS CHRN] Onset: 2 Chronic Deficiency and other anemia (2 sources) Iron deficiency anemia; Translations: [Iron deficiency anemia, unspecified] Onset: 2 Episodic Deficiency and other anemia (1 source) Anemia 10-27-2021 Episodic Disorders of lipid metabolism (5 sources) Pure hypercholesterolemia; Translations: [Pure hypercholesterolemia, unspecified] Onset: 2 10-27-2021 Chronic Essential hypertension (2 sources) Hypertensive disorder; Translations: [Essential (primary) hypertension] Onset: 2 10-27-2021 Chronic Heart valve disorders (3 sources) Rheumatic disorders of both mitral and tricuspid valves; Translations: [Presence of prosthetic heart valve] Onset: 3 Chronic Hypertension with complications and secondary hypertension (2 sources) Hypertensive heart and chronic kidney disease with heart failure and stage 1 through stage 4 chronic kidney disease, or unspecified chronic kidney disease; Translations: [Hypertensive chronic kidney disease with stage 1 through stage 4 chronic kidney disease, or unspecified chronic kidney disease] Onset: 2 Chronic Occlusion or stenosis of precerebral arteries (2 sources) Occlusion and stenosis of left carotid artery; Translations: [Occlusion and stenosis of left carotid artery] Onset: 3 Chronic Other aftercare (2 sources) Long-term current use of anticoagulant; Translations: [skilled nursing (current) use of anticoagulants] Onset: 2 Episodic Other connective tissue disease (1 source) Polymyalgia rheumatica 10-27-2021 Chronic Other gastrointestinal disorders (2 sources) Personal history of other diseases of the digestive system; Translations: [Personal history of other diseases of the digestive system] Onset: 5 Episodic Other lower respiratory disease (6 sources) Shortness of breath; Translations: [SHORTNESS OF BREATH] Onset: 2 Episodic Other nutritional; endocrine; and metabolic disorders (1 source) Body mass index 25-29 - overweight 11-04-2021 Episodic Peripheral and visceral atherosclerosis (1 source) Arteriosclerotic vascular disease 10-27-2021 Chronic Unclassified (1 source) PERSONAL HISTORY OF COVID-19; Translations: [PERSONAL HISTORY OF COVID-19] Onset: 2 Unclassified (1 source) CHRN KIDNEY DISEASE STG 3 UNSP; Translations: [CHRN KIDNEY DISEASE STG 3 UNSP] Onset: 2 Unclassified (1 source) Chronic atrial fibrillation, unspecified; Translations: [CHRONIC ATRIAL FIBRILLATION UNSPEC] Onset: 2 Unclassified (1 source) CONTACT W/AND (SUSP) EXPOS COVID-19; Translations: [CONTACT W/AND (SUSP) EXPOS COVID-19] Onset: 2 Unclassified (1 source) Other abnormal findings on cytological and histological examination of urine; Translations: [OTH ABN FIND CYTLG HISTLG EXM URINE] Onset: 2 Past or Other Problems Problem Classification Problem Date Documented Da te Episodic/Chronic Acute and unspecified renal failure (1 source) Acute kidney failure, unspecified; Translations: [ACUTE KIDNEY FAILURE UNSPECIFIED] Onset: 2 Episodic Deficiency and other anemia [...] 2 Episodic Other aftercare (1 source) Other manager long term care (current) drug therapy; Translations: [OTH FILTER TENDER CURRENT DRUG THERAPY] Onset: 3 Episodic Other aftercare (1 source) skilled nursing (current) use of anticoagulants; Translations: [[facility] CURRNT USE ANTICOAGULANTS] Onset: 2 Episodic Other aftercare (4 sources) Encounter for therapeutic drug level monitoring; Translations: [[facility] THERAPEUTC DRUG LEVL MONITORING] Onset: 2 Episodic Other aftercare (1 source) skilled nursing (current) use of aspirin; Translations: [[facility] CURRENT USE OF ASPIRIN] Onset: 2 Episodic Other lower respiratory disease (1 source) Personal history of pneumonia (recurrent); Translations: [PERSONAL HX OF PNEUMONIA RECURRENT] Onset: 2 Episodic Syncope (1 source) Syncope and collapse; Translations: [SYNCOPE AND COLLAPSE] Onset: 2 Episodic Results Test Name Value Interpretation Reference Range Facility Ambulatory Visit Summaryon 0 09-13-2024 Ambulatory Visit Summary Ambulatory Visit Summary JUAN BARCENAS :1935 Visit Date:09/11/2024 Ambulatory Visit Instructions Your Diagnosis Encounter for Medicare annual examination with abnormal findings HTN (hypertension) Iron deficiency anemia Pure hypercholesterolemia Flu vaccine refused Abnormal MMSE Over weight Your Care Team Attending Physician - Erik DALY, Nesha Oliver Primary Care Physician - Isabela Shields This Is Your Medications List amiodarone (amiodarone 200 mg Tab) amlodipine (amLODIPine 10 mg Tab) aspirin (aspirin [...] hernia (1992), Repair of left inguinal hernia (1981), Cardioversion. Discharge Vitals Heart Rate (Peripheral) 60 Blood Pressure 138/76 Height 167 cm Height 66 in Weight 78.15 kg Weight 172.291 lb BMI 28.02 What to do next Scheduled Follow-Up Appointments Wednesday 10:40 AM EST With: Isabela Shields Where: [address] [id number] 11:00 AM EST With: Where: [address] [id number]- Someone Will Contact You Regarding These Appointments [facility] [place] [facility] External Ambulatory Referral, Service not offered at [facility], Neurology, 09/11/24 15:10:00 EST, Abnormal MMSE Medications What How Much When Instructions Unchanged amiodarone (amiodarone 200 mg Tab) By Mouth Every day Unchanged amlodipine (amLODIPine 10 mg Tab) See instructions TAKE 1 TABLET BY MOUTH EVERY DAY Unchanged aspirin (aspirin 81 mg Oral EC Tab) 1 Tablets By Mouth Every day Unchanged atorvastatin (atorvastatin 20 mg Tab) See instructions TAKE 1 TABLET BY MOUTH AT BEDTIME Unchanged carvedilol (carvedilol 6.25 mg Tab) 3 Tablets By Mouth 2 times a day [...] you for choosing us for your care. Education Materials Health Maintenance After Age 65 After age 65, you are at a higher risk for certain long-term diseases and infections as well as injuries from falls. Falls are a major cause of broken bones and head injuries in people who are older than age 65. Getting regular preventive care can help to keep you healthy and well. Preventive care includes getting regular testing and making lifestyle changes as recommended by your health care provider. Talk with your health care provider about: ??? Which screenings and tests you should have. A screening is a test that checks for a disease when you have no symptoms. ??? A diet and exercise plan that is right for you. What should I know about screenings and tests to prevent falls? Screening and testing are the best ways to find a health problem early. Early diagnosis and treatment give you the best chance of managing medical conditions that are common after age 65. Certain conditions and lifestyle choices may make you more likely to have a fall. Your health care provider may recommend: ??? Regular vision checks. Poor vision and conditions such as cataracts can make you more likely to have a fall. If you wear glasses, make sure to get your prescription updated if your vision changes. ??? Medicine revie (more content not included)... Normal [facility] Family Medicine Office/Clini c Noteon 09-13-2024 Family Medicine Office/Clinic Note Family Medicine Office/Clinic Note Chief Complaint Subsequent Medicare Wellness Review of Systems PHQ Score Initial Depression Screen Score: 1 SCORE Physical Exam Vitals & Measurements HR: 60(Peripheral) BP: 138/76 SpO2: 96% HT: 167 cm HT: 66 in WT: 78.15 kg WT: 172.291 lb BMI: 28.02 Assessment/Plan 1. Encounter for Medicare annual examination with abnormal findings (Z00.01: Encounter for general adult medical examination with abnormal findings) The patient was present with daughter, Lydia today and was given a customized and personalized print out of all the current AHRQ USPSTF???s recommendations for preventative services and all current CDC recommended immunizations, relevant risk recommendations and the following patient brochures were given. Reviewed Medicare Prevention Services checklist. CDC-Falls Prevention and home safety screening reviewed. Patient reports 2 non injury falls in last 12 months, voices no worry about falling. Exhibits no problems with sitting, standing or ambulation. Patient aware with keeping walk way area free of clutter to prevent tripping and/or falling. [place] Advance Directives reviewed. Documents remain at home, encouraged to bring in for scanning into chart. Patient reports needing help with some ADL???s and Instrumental ADL???s. Cognitive screening completed with memory and clock face drawing. See #6. Immunization record reviewed, discussed Shingrix vaccine with educational handout and availability. 1 COVID vaccines have been administered. Allergies and medications reviewed and up to date. No concerns with taking medication as prescribed. Reviewed OTC medications, medication list up to date. Blood tests were reviewed: Daughter Lydia reports Labs were recently done for cardiology at [facility]. Nurse spoke to [facility], cardiology ordered LIPID Panel and Hepatic labs, they are not all back yet. [facility] will fax to office once all results are received. No concerns with bowel/ bladder. Colonoscopy last completed 11/26/[address] Abraham. Reviewed pain symptoms : chronic back, legs and wrists, rates pain as a 4 out of 10, no pain medications taken. Reviewed all outside providers that patient follows. Last visit summary notes available in chart and/or have been requested. Patient declines any signs or symptoms of depression at this time. 8 minutes spent with screening and documentation. PHQ2 screening score 1. Patient denies alcohol use. 8 minutes spent with screening and documentation. Audit score 0. Follow up scheduled with PCP, 09/13/2024 AWV has been scheduled, 09/11/2025 Medicare provides yearly screening for alcohol and depression concerns. This is completed during our Medicare wellness visit for those who do not have a current diagnosis of depression or concerns with alcohol use. I spent a total of 17 minutes on this date of service which included preparing to see the patient, face to face patient care, completing clinical documentation, obtaining and/or reviewing separately obtained history, counseling and educating the patient with handouts. Explanations were provided with reviewing questionnaires. AUDIT risk assessment screening completed, risk score 0 with patient denying concerns with use. Completed PHQ-2 risk assessment for depression with risk score 1, negative findings. Patient has been reminded to notify the provider if there would be a change or concerns with symptoms with fear, unable to sleep, worrying too much or feeling down and/or sad with lost of interest with daily activities. Will continue to monitor with screening yearly during Medicare wellness visits. Patient and daughter agree to [facility] referral. Referral placed. 2. HTN (hypertension) (I10: Essential (primary) hypertension) Patient is taking losartan and carvedilol daily as directed. Does not monitor BP pressure at home. HTN stoplight reviewed with BP goal to be <140/90. Reviewed different factors that can alter blood pressure readings. Education handout provided with s/s to monitor for and report to provider. Patient is encouraged to increase portions of fruit, vegetables, fiber and increase exercise as much as tolerable. Reviewed importance with monitoring foods high in salt content and encouraged to limit intake, if unsure encouraged to discuss with their PCP. Encouraged to eat more chicken, fish and lean white meats and limits red meats in diet. Discussed importance with keeping BP under good control to reduce CVA risk factors. Will continue to f/u with PCP and cardiology during office visits and as needed. 3. Iron deficiency anemia (D50.9: Iron deficiency anemia, unspecified) Patient denies any fatigue, weakness or cold hands and feet. Patient taking ferrous sulfate as directed. Diet with iron rich nutrients encouraged : beans, beets, dark green leafy vegetables. Will continue labs with PCP as needed. 4. Pure hypercholesterolemia (E78.00: Pure hypercholesterolemia, unspecified) Reviewed healthy lifestyle with low fat diet and exercise regimen. When y (more content not included)... [facility] Comment on above: Result Comment: Elec tronically Signed By: Isabela Shields\.br\Date and Time Signed: 09/13/24 16:27 EST\.br\Electronically Co-Signed By: Charlette Damian\.br\Date and Time Co-Signed: 09/11/24 15:14 EST Family Medicine Office/Clinic Note Family Medicine Office/Clinic Note HPI Staff Juan is a 89 year old male presenting for medication refill Patient is here for follow up on hypertension. follows with [facility] cardiology had echo and caratoid US How often are you checking your blood pressure? no What are your average readings? Do you have any of the following symptoms? Chest Pain? no Palpitations? no COOK/SOB? no Headache? no Peripheral Edema? yes Light Headed? no Gerd: omeprazole working well pt needs handicap placard. Also would like ears look at to see if they need flushed no medications needing refilled at this time History of Present Illness pt presents today for follow up Review of Systems PHQ Score Initial Depression Screen Score: 0 SCORE Physical Exam Vitals & Measurements HR: 62(Peripheral) RR: 18 BP: 132/64 SpO2: 96% HT: 68 in HT: 172.2 cm WT: 77.8 kg WT: 171.519 lb BMI: 26.24 General: alert, no acute distress ENMT: oral mucosa moist, no pharyngeal erythema or exudate Cardiovascular: regular rate and rhythm, normal peripheral perfusion Respiratory: Lungs CTA, respirations non labored Extremities: no deformity, no trauma Neurological: oriented x 4, LOC appropriate for age, CN II-XII intact, motor strength equal & normal bilaterally, speech normal Assessment/Plan 1. S/P TAVR (transcatheter aortic valve replacement) (Z95.2: Presence of prosthetic heart valve) follows cardiology. they recently ordered echo and u/s of carotid artery. Ordered: Misc Prescription, Handicap Placard, See Instructions, 2 EA, 0, 5 years Please provide 2 placards They have 2 vehicles, Supply Misc Prescription, Handicap Placard, See Instructions, 2 EA, 0, 5 years Please provide 2 placards They have 2 vehicles, [id number], Supply, 172.2, cm, 09/13/24 9:56:00 EST, Height/Length Dosing, 77.8, kg, 09/13/24 9:56:00 EST, Weight Dosing 2. Chronic diastolic CHF (congestive heart failure) (I50.32: Chronic diastolic (congestive) heart failure) see above Ordered: Misc Prescription, Handicap Placard, See Instructions, 2 EA, 0, 5 years Please provide 2 placards They have 2 vehicles, Supply Misc Prescription, Handicap Placard, See Instructions, 2 EA, 0, 5 years Please provide 2 placards They have 2 vehicles, [id number], Supply, 172.2, cm, 09/13/24 9:56:00 EST, Height/Length Dosing, 77.8, kg, 09/13/24 9:56:00 EST, Weight Dosing 3. Stenosis of left carotid artery (I65.22: Occlusion and stenosis of left carotid artery) scheduled for u/s 4. Paroxysmal atrial fibrillation (I48.0: Paroxysmal atrial fibrillation) in normal rhythm in office today. does not need refills at this time. 5. BMI 26.0-26.9,adult (Z68.26: Body mass index [BMI] 26.0-26.9, adult) BMI education given 6. Non-smoker (Z78.9: Other specified health status) continue not smoking 7. Abnormal MMSE (F99: Mental disorder, not otherwise specified) discussed with daughter a little further today. [facility]W nurse did order neuro referral to follow up. but daughter thinks she will hold off for now. Limited mobility (Z74.09: Other reduced mobility) needed handicap placard order Ordered: Misc Prescription, Handicap Placard, See Instructions, 1 EA, 0, 5 years, Supply Misc Prescription, Handicap Placard, See Instructions, 2 EA, 0, 5 years Please provide 2 placards They have 2 vehicles, Supply Misc Prescription, Handicap Placard, See Instructions, 2 EA, 0, 5 years Please provide 2 placards They have 2 vehicles, [id number], Supply, 172.2, cm, 09/13/24 9:56:00 EST, Height/Length Dosing, 77.8, kg, 09/13/24 9:56:00 EST, Weight Dosing Follow-up No qualifying data available Problem List/Past Medical History Ongoing Abnormal MMSE ASCVD (arteriosclerotic cardiovascular disease) BMI 25.0-25.9,adult Chronic anticoagulation Chronic diastolic CHF (congestive heart failure) Chronic kidney disease, stage 3 Decreased ambulation status HTN (hypertension) Iron deficiency anemia Pacemaker, artificial Paroxysmal atrial fibrillation Polymyalgia rheumatica Pure hypercholesterolemia S/P TAVR (transcatheter aortic valve replacement) Serrated adenoma of colon SOB (shortness of breath) on exertion Stenosis of left carotid artery Uses walker Uses wheelchair Historical Atrial fibrillation with rapid ventricular response Procedure/Surgical History Colonoscopy (11/26/2021), EGD - Esophagogastroduodenoscopy (11/26/2021), AVR - Aortic valve replacement (12/2020), Biopsy of lung (10/2020), Bronchoscopy (10/2020), Cardiac pacemaker (2013), 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 Medications amiodarone 200 mg Tab, Oral, Daily amLODIPine 10 mg Tab, See Instructions aspirin 81 mg Oral EC Tab, 81 mg= 1 tab(s), Oral, Daily atorvastatin 20 mg Tab, See Instructions carvedilol 6.25 mg Tab, 18.75 mg= 3 tab(s), Oral, BID ferrous sulfate 325 mg Tab, 325 mg= 1 tab( (more content not included)... [facility] Comment on above: Result Comment: Elec tronically Signed By: Isabela Shields\.br\Date and Time Signed: 09/13/24 10:54 EST Pre-Visit Planningon 025 Pre-Visit Planning Pre-Visit Planning From: Sophia Wong To: Isabela Shields; Sent: 09/12/2024 14:44:18 EST Subject: Pre-Visit Planning Due Date/Time: 09/12/2024 14:44:00 EST Caller Name: JUAN BARCENAS Usama; Caller Number: , [place] Isabela. During a pre-visit planning chart review, I noted the following documentation in the medical record: Current Problem List: Chronic kidney disease, stage 3 unspecified. Glomerular filtration rate (GFR): =33 on 04/21/2024, =45 on 06/21/2023, =45 on 06/21/2023, and =>60 on 09/24/2022. Based on your medical judgment, can you please clarify which, if any, of the following conditions are present? I can update the Chronic Problem List with your response if you would like. -Chronic Kidney Disease Stage 3b (GFR 30-44) -Chronic Kidney Disease Stage 3a (GFR 45-59) -Other (please specify): In responding to this request, please exercise your independent professional judgment. The fact that a question is asked does not imply that any particular answer is desired or expected. If you have any questions, please feel free to contact me at extension [phone]. Thank you! Sophia Wong LPN Clinical Heavy Equipment Sales Associate [address] [address] Extension: [phone] [email or web address] Office Visiton 09-06-2024 Follow-up visit [id number] Juan Barcenas 1935 M Date Provider Department Center 09/06/2024 SISSY MORALES KEKE [facility] Family History Problem Relation Age of Onset Stroke Mother Other Father Family Status - Relation Status Age at Mother Father Level of Service:[id number] [place] OFFICE/OUTPATIENT ESTABLISHED MOD MDM 30 MIN [facility] 37on 05-30-2024 37 *Hold furosemide for 2 days then resume at 40mg daily. *Get lab work done in 1-2 weeks. *We will increase atorvastatin to 40mg daily to better help cholesterol levels. I sent a new prescription of 40mg tablets to the pharmacy. -Will need follow-up cholesterol level/liver function in 3 months *Talk about the WATCHMAN device with family [facility] 05-30-2024 Follow-up visit [id number] Juan Barcenas 1935 M Date Provider Department Center 05/30/2024 OLIVIA ALBERTS KEKE Reddy Family History Problem Relation Age of Onset Stroke Mother Other Father Family Status - Relation Status Age at Mother Father Level of Service:07313 [place] OFFICE/OUTPATIENT ESTABLISHED MOD MDM 30 MIN Reason for Visit and Comments: Coronary Artery Disease [187] Congestive Heart Failure [127] Valve Disorder [3372] [facility] 36on 05-04-2024 36 Concerning chest x r ay ----- Message ----- From: Olivia Barajas NP Sent: 05/01/2024 3:57 PM EDT To: Francheska Retana MA Subject: RE: Edit CXR looks ok, no changes Gave his daughter the message [facility] Ambulatory [facility] Summaryon 1 Ambulatory Visit [...] Follow-Up Appointments Wednesday 11:00 AM EST Where: [facility] Medicine [place] [id number]- Medications What How Much When Instructions Unchanged [...] choosing us for your care. Normal [facility] Family Medicine Office/Clini c Noteon 04-17-2024 Family [...] 6 month follow up. is going to [facility] after this appointment for labs that [...] unspecified) CMP ordered. will have done at [facility] 3. Diastolic CHF (I50.30: Unspecified diastolic (congestive) heart failure) follow up with cardiology at end of month. is going to [facility] for labs and chest x ray [...] Recorded pneumococcal 13-valent vaccine 12/01/2015 Recorded Normal [facility] Comment on above: Result Comment: Elec tronically Signed By: Gracie RAMIREZ, Isabela Rodas\.br\Date and Time Signed: 04/17/24 13:43 EDT Consultation Noteon 12-01-19 24 Consultation Note [id number] [facility] 36on 11-24-2023 36 PT [facility] Echocardiographyon Echocardiography [id number] [facility] Office Visiton 10-19-2023 Follow-up visit [id number] Juan Barcenas 1935 M Date Provider Department Center 10/19/2023 OLIVIA ALBERTS CARD [facility] Family History Problem Relation Age of Onset Stroke Mother Other Father Family Status - Relation Status Age at Mother Father Level of Service:12544 [place] OFFICE/OUTPATIENT ESTABLISHED MOD MDM 30 MIN Reason for Visit and Comments: Atrial Fibrillation [80] Congestive Heart Failure [127] [facility] Summaryon 0 09-29-2023 Ambulatory [...] Follow-Up Appointments Wednesday 11:00 AM EST Where: [facility] [place] [facility] Family Medicine Office/Clini c Noteon 09-29-2023 Family [...] of clutter to prevent tripping and/or falling. [place] [facility] Directives reviewed, patient has at home, [...] labs completed in fall, request sent to [facility]. Colonoscopy, aged out. Reviewed pain symptoms with patient: patient denies pain symptoms Reviewed all outside providers that patient follows. Last visit summary notes available in chart and/or have been requested. Follow up scheduled, SHERIDAN JO has been scheduled, 09/11/2024 CCM services explained [...] follow up visits. Patient follows up with [facility], last visit notes available in chart (outside records). Cardiac Healthy Nutritional handout reviewed and provided for patient. 5. 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 Patient follows with Dr. Garcia and Dr. Adler of [facility]. Last visit summary notes are available in chart (outside records). Denies concerns with SOB, chest pain or tightness. Taking medications daily as directed. Reviewed Cardiac nutritional recommendations with handout provided. Patient voices understanding with signs and symptoms to monitor for and report to provider. 6. Pure hypercholesterolemia (E78.00: Pur (more content not included)... Normal [facility] Comment on above: Result Comment: Elec tronically Signed By: Isabela Shields\.br\Date and Time Signed: 09/29/23 13:41 EDT\.br\Electronically Co-Signed By: Bhaskar Leigh\.br\Date and Time Co-Signed: 09/29/23 11:20 EDT Patient Educationon 09-29-19 Patient Education Cardiovascular Atrial [...] signals of the heart. ? An ambulatory cardiac technician to record your heart's activity for a [...] Trouble breathing. (more content not included)... Normal [facility] Screenson 09-29-2023 Screens [id number] Normal [facility] Orders Onlyon 09-15-2023 Orders Only [id number] Juan Barcenas 1935 M Date Provider Department Center 09/15/2023 ROBIN ESPINAL [facility] CARD [place] Family History Problem Relation Age of Onset Stroke Mother Other Father Family Status - Relation Status Age at Mother Father [facility] ECHOCARDIO M/2D COMPLETEon 0 12-04-2022 ECHOCARDIO M/2D COMPLETE Normal [facility] XR CHEST 2 Von 10-01-2022 XR CHEST 2 V Normal [facility] CBC W MANUAL DIFFon 09-25-19 ANISOCYTOSIS SLIGHT Normal [facility] Comment on above: Performed By: #### C ALEX ####[facility] Qysamidccp1769 [place] [address]Dr. Yilan Escobar ATYPICAL LYMPH # Normal [facility] Comment on above: Performed By: #### C ALEX ####[facility] Ipoprzkhhq4971 [place] [address]Dr. Yilan Escobar ATYPICAL LYMPH % Normal [facility] Comment on above: Performed By: #### C ALEX ####[facility] Blcahznrix8301 [place] [address]Dr. Yilan Escobar BAND # Normal 0.0-0.3 [facility] Comment on above: Performed By: #### C ALEX ####[facility] Lvttqxjplj6741 [place] [address]Dr. Yilan Escobar BAND % Normal 0-5 [facility] Comment on above: Performed By: #### C ALEX ####[facility] Mcwgkxufup9802 [place] [address]Dr. Yilan Escobar BASOM # 0.00 103/ul Normal 0.00-0.10 [facility] Comment on above: Performed By: #### C ALEX ####[facility] Ubqulkdzha9751 [place] [address]Dr. Yilan Escobar BASOM % 0.0 % Critically low 0.2-2.0 [facility] Comment on above: Performed By: #### C ALEX ####[facility] Xeqetbyerv2441 [place] [address]Dr. Yilan Escobar BLAST # Normal [facility] Comment on above: Performed By: #### C ALEX ####[facility] Mnpubxmgkt7615 [place] [id number]. Amina Escobar BLAST % Normal [facility] Comment on above: Performed By: #### C ALEX ####[facility] Lviyvyaxto9817 [place] [id number]. Amina Escobar CORRECTED WBC Normal 4.0-11.0 [facility] Comment on above: Performed By: #### C ALEX ####[facility] Qthlrxedjb1759 [place] [address]Dr. Amina Escobar EOS # 0.12 103/ul Normal 0.00-0.70 [facility] Comment on above: Performed By: #### C ALEX ####[facility] Meyslrcwfo3314 [place] [address]Dr. Amina Escobar EOS% 2.0 % Normal 0.9-7.0 [facility] Comment on above: Performed By: #### C ALEX ####[facility] Hzokmshijo43[address] [place], [place] [address]Dr. Amina Escobar HCT 37.9 % Critically low 42.0-54.0 [facility] Comment on above: Performed By: #### C ALEX ####[facility] Xbnljstfbp[address] [place], [place] [address]Dr. Amina Escobar HGB 11.5 g/dl Critically low 14.0-18.0 [facility] Comment on above: Performed By: #### C ALEX ####[facility] Szgzppgghl1170 [place] [address]Dr. Amina Escobar HYPOCHROMASIA SLIGHT Normal [facility] Comment on above: Performed By: #### C ALEX ####[facility] Elfuwwptam0210 [place] [id number]. Amina Escobar LYMPHM # 0.65 103/ul Critically low 1.20-3.80 [facility] Comment on above: Performed By: #### C ALEX ####[facility] Dsvqztckfc9161 [place] [address]Dr. Amina Escobar LYMPHM% 11.0 % Critically low 20.5-60.0 [facility] Comment on above: Performed By: #### C ALEX ####[facility] Euujiwawfl0047 [place] [id number]. Amina Escobar MCH 26.0 pg Normal 25.9-34.0 [facility] Comment on above: Performed By: #### C ALEX ####[facility] Wgslhcptub3573 [place] [id number]. Amina Escobar MCHC 30.3 g/dl Normal 29.9-35.2 [facility] Comment on above: Performed By: #### C ALEX ####[facility] Hxcklczieb3327 [place] [address]Dr. Amina Escobar MCV 85.7 fL Normal 80.0-94.0 [facility] Comment on above: Performed By: #### C ALEX ####[facility] Hgohfwwucb3070 [place] [address]Dr. Amina Escobar METAMYELOCYTE # Normal [facility] Comment on above: Performed By: #### C ALEX ####[facility] Duxkhwrjdo[address] [place], [place] [address]Dr. Amina Escobar METAMYELOCYTE % Normal [facility] Comment on above: Performed By: #### C ALEX ####[facility] Towmoomyfu0193 [place] [phone]. Amina Escobar MICROCYTOSIS SLIGHT Normal [facility] Comment on above: Performed By: #### C ALEX ####[facility] Xkmxahjjyd6701 [place] [address]Dr. Amina Escobar MONOM# 0.35 103/ul Normal 0.30-0.80 [facility] Comment on above: Performed By: #### C ALEX ####[facility] Apdjakxuvp[address] [place], [place] [address]Dr. Amina Escobar MONOM% 6.0 % Normal 1.7-12.0 [facility] Comment on above: Performed By: #### C ALEX ####[facility] Bzqecufwlc7040 [place] [phone]. Amina Escobar MPV 11.9 fL Normal 9.5-13.5 [facility] Comment on above: Performed By: #### C ALEX ####[facility] Qifnmaotwp2121 [place] [phone]. Amina Escobar MYELOCYTE # Normal [facility] Comment on above: Performed By: #### C ALEX ####[facility] Twqyigfbsd8811 [place] [id number]. Amina Escobar MYELOCYTE % Normal [facility] Comment on above: Performed By: #### C ALEX ####[facility] Pohqdlmudp0630 [place] [address]Dr. Amina Escobar NRBC Normal [facility] Comment on above: Performed By: #### C ALEX ####[facility] Icbzxiunun8177 [place] [address]Dr. Amina Escobar OVALOCYTES SLIGHT Normal [facility] Comment on above: Performed By: #### C ALEX ####[facility] Yjbyxgulga[address] [place], [place] [address]Dr. Amina Escobar PLT 185 103/ul Normal 150-450 [facility] Comment on above: Performed By: #### C ALEX ####[facility] Xoivarzmet3451 [place] [phone]. Amina Escobar POIKILOCYTOSIS SLIGHT Normal [facility] Comment on above: Performed By: #### C ALEX ####[facility] Kfhowoanoe4581 [place] [address]Dr. Amina Escobar RBC 4.42 106/ul Critically low 4.70-6.10 [facility] Comment on above: Performed By: #### C ALEX ####[facility] Vzuukkfwvp8742 [place] [phone]. Amina Escobar RDW 16.4 % Critically high 11.0-15.0 [facility] Comment on above: Performed By: #### C ALEX ####[facility] Gkytcepuxj5318 [place] [phone]. Amina Escobar SEG # 4.78 103/ul Normal 1.40-6.50 [facility] Comment on above: Performed By: #### C MIGDALIAMAN ####[facility] Vugtfwthon1798 [place] [phone]. Kandielda Escobar SEG % 81.0 % Critically high 43.0-75.0 [facility] Comment on above: Performed By: #### C BCMAN ####[facility] Cawekhfpxk0376 [place] [phone]. Amina Escobar WBC 5.9 103/ul Normal 4.0-11.0 [facility] Comment on above: Performed By: #### C BCMAN ####[facility] Ptymnhqnpq6273 [place] [address]Dr. Amina Escobar PROF CHEM 8 (BAS METB)on Anion gap [Moles/Vol] 8.5 mmol/L Normal [facility] Comment on above: Performed By: #### B MP ####[facility] Xnnvmajdyv[address] [place], [place] [address]Dr. Amina Escobar Calcium [Mass/Vol] 8.3 mg/dL Critically low 8.5-10.1 Th [facility] Comment on above: Performed By: #### B MP ####[facility] Tutrrvoxsv550[address] [place], [place] [address]Dr. Amina Escobar Chloride [Moles/Vol] 109 mmol/L Critically high 98-107 [facility] Comment on above: Performed By: #### B MP ####[facility] Myyozzmjsc132[address] [place], [place] [address]Dr. Amina Escobar CO2 [Moles/Vol] 29.5 mmol/L Normal 21.0-32.0 [facility] Comment on above: Performed By: #### B MP ####[facility] Pvdghmxzzh[address] [place], [place] [address]Dr. Amina Escobar Creatinine [Mass/Vol] 1.11 mg/dL Normal 0.70-1.30 [facility] Comment on above: Performed By: #### B MP ####[facility] Wuswwomeun6701 [place] [address]Dr. Amina Escobar EGFR-AF MALAWIAN >60 Normal >=60 [facility] Comment on above: Performed By: #### B MP ####[facility] Lhgklzrnco5023 [place] [phone]. Amina Escobar EGFR-NON AF MALAWIAN >60 Normal >=60 [facility] Comment on above: Performed By: #### B MP ####[facility] Xhlqtswvca8838 [place] [phone]. Kandielda Escobar Glucose [Mass/Vol] 96 mg/dL Normal 74-106 [facility] Comment on above: Performed By: #### B MP ####[facility] Wppfuropbk[address] [place], [place] [address]Dr. Amina Escobar Potassium [Moles/Vol] 4.0 mmol/L Normal 3.5-5.1 [facility] Comment on above: Performed By: #### B MP ####[facility] Yalipofqqe15[address] [place], [place] [address]Dr. Amina Escobar Sodium [Moles/Vol] 143 mmol/L Normal 136-145 [facility] Comment on above: Performed By: #### B MP ####[facility] Pwzbmllyif[address] [place], [place] [address]Dr. Amina Shawn Urea nitrogen [Mass/Vol] 22.0 mg/dL Critically high 7.0-18.0 [facility] Comment on above: Performed By: #### B MP ####[facility] Fexawqcjnc[address] [place], [place] [address]Dr. Amina Escobar Urea nitrogen/Creatinine [Mass ratio] 19.8 mg/mg Normal [facility] Comment on above: Performed By: #### B MP ####[facility] [address]jdlvrdpvq[address] [place], [place] [address]Dr. Amina Shawn CBC AUTO DIFFon 08-12-2022 BASO # 0.0 103/ul Normal 0.0-0.1 [facility] Comment on above: Performed By: #### C BC ####[facility] Xsdtaplohg280[address] [place], [place] [address]Dr. Amina Escobar Basophils/100 WBC (Bld) 0.7 % Normal 0.2-2.0 [facility] Comment on above: Performed By: #### C BC ####[facility] Jihhmcuttg0100 [place] [address]Dr. Amina Escobar EO # 0.2 103/ul Normal 0.0-0.7 [facility] Comment on above: Performed By: #### C BC ####[facility] Twozvhnamr1843 [place] [address]Dr. Amina Escobar Eosinophils/100 WBC (Bld) 3.9 % Normal 0.9-7.0 [facility] Comment on above: Performed By: #### C BC ####[facility] Khzkorrnij140[address] [place], [place] [address]Dr. Amina Escobar Erythrocyte distribution width (RBC) [Ratio] 15.5 % Critically high 11.0-15.0 [facility] Comment on above: Performed By: #### C BC ####[facility] Kodrgflqam550[address] [place], [place] [address]Dr. Amina Escobar Hematocrit (Bld) [Volume fraction] 39.3 % Critically low 42.0-54.0 [facility] Comment on above: Performed By: #### C BC ####[facility] Gpuiweqolv[address] [place], [place] [address]Dr. Amina Escobar Hemoglobin (Bld) [Mass/Vol] 11.5 g/dL Critically low 14.0-18.0 [facility] Comment on above: Performed By: #### C BC ####[facility] Mwomzegtvo[address] [place], [place] [address]Dr. Amina Escobar IG # 0.02 10e3/ul Normal 0.00-0.03 [facility] Comment on above: Performed By: #### C BC ####[facility] Ioydlmifgb97[address] [place], [place] [address]Dr. Amina Escobar IG % 0.4 % Normal 0.0-0.5 [facility] Comment on above: Performed By: #### C BC ####[facility] Ifbabzlnvw522[address] [place], [place] [address]Dr. Amina Escobar LYMPH # 0.6 103/ul Critically low 1.2-3.8 [facility] Comment on above: Performed By: #### C BC ####[facility] Aqtplmbgrc2619 [place] [address]Dr. Amina Shawn Lymphocytes/100 WBC (Bld) 10.1 % Critically low 20.5-60.0 [facility] Comment on above: Performed By: #### C BC ####[facility] Qzrrwvrwzl6457 [place] [address]Dr. Amina Escobar MANUAL DIFF REQ NO Normal [facility] Comment on above: Performed By: #### C BC ####[facility] Yrflccknaa8580 [place] [address]Dr. Kandielda Escobar MCH (RBC) [Entitic mass] 27.0 pg Normal 25.9-34.0 [facility] Comment on above: Performed By: #### C BC ####[facility] Fedlbpdbxj701[address] [place], [place] [address]Dr. Amina Escobar MCHC (RBC) [Mass/Vol] 29.3 g/dL Critically low 29.9-35.2 [facility] Comment on above: Performed By: #### C BC ####[facility] Hkfoymzoae[address] [place], [place] [address]Dr. Amina Escobar MCV (RBC) [Entitic vol] 92.3 fL Normal 80.0-94.0 [facility] Comment on above: Performed By: #### C BC ####[facility] Kvlfrrnsws7[address] [place], [place] [address]Dr. Amina Escobar MONO # 0.5 103/ul Normal 0.3-0.8 [facility] Comment on above: Performed By: #### C BC ####[facility] Cuaddqxvoj17[address] [place], [place] [address]Dr. Amina Escobar Monocytes/100 WBC (Bld) 9.0 % Normal 1.7-12.0 [facility] Comment on above: Performed By: #### C BC ####[facility] Vwccrxbfzz327[address] [place], [place] [address]Dr. Amina Escobar NEUT # 4.3 103/ul Normal 1.4-6.5 [facility] Comment on above: Performed By: #### C BC ####[facility] Uvtnouazgd7351 [place] [address]Dr. Amnia Escobar Neutrophils/100 WBC (Bld) 75.9 % Critically high 43.0-75.0 [facility] Comment on above: Performed By: #### C BC ####[facility] Maknxprxdl3306 [place] [address]Dr. Amina Escobar Platelet mean volume (Bld) [Entitic vol] 11.4 fL Normal 9.5-13.5 [facility] Comment on above: Performed By: #### C BC ####[facility] Yfkqbuggnp9361 [place] [address]Dr. Amina Escobar PLT 216 103/ul Normal 150-450 [facility] Comment on above: Performed By: #### C BC ####[facility] Xhebeiqitv5332 [place] [address]Dr. Amina Escobar RBC 4.26 106/ul Critically low 4.70-6.10 [facility] Comment on above: Performed By: #### C BC ####[facility] Swtxvudljh[address] [place], [place] [address]Dr. Amina Escobar WBC 5.7 103/ul Normal 4.0-11.0 [facility] Comment on above: Performed By: #### C BC ####[facility] Eozowbbxtb9793 [place] [address]Dr. Amina Escobar PROF CHEM 8 (BAS METB)on Anion gap [Moles/Vol] 11.9 mmol/L Normal [facility] Comment on above: Performed By: #### B MP ####[facility] Czsarfnqas[address] [place], [place] [address]Dr. Amina Escobar Calcium [Mass/Vol] 8.5 mg/dL Normal 8.5-10.1 [facility] Comment on above: Performed By: #### B MP ####[facility] Ahpmzavmry4826 [place] [address]Dr. Amina Escobar Chloride [Moles/Vol] 108 mmol/L Critically high 98-107 [facility] Comment on above: Performed By: #### B MP ####[facility] Llrhghakxl4051 [place] [address]Dr. Amina Escobar CO2 [Moles/Vol] 30.8 mmol/L Normal 21.0-32.0 [facility] Comment on above: Performed By: #### B MP ####[facility] Mqoavjcnid9203 [place] [address]Dr. Amina Escobar Creatinine [Mass/Vol] 1.14 mg/dL Normal 0.70-1.30 [facility] Comment on above: Performed By: #### B MP ####[facility] [place] Mzaksgqtpt[address] [place], [place] [address]Dr. Amina Shawn EGFR-AF MALAWIAN >60 Normal >=60 [facility] Comment on above: Performed By: #### B MP ####[facility] Ihxgroeuic50[address] [place], [place] [address]Dr. Kandielda Shawn EGFR-NON AF MALAWIAN >60 Normal >=60 [facility] Comment on above: Performed By: #### B MP ####[facility] Fubdxzzbnu346[address] [place], [place] [address]Dr. Amina Shawn Glucose [Mass/Vol] 74 mg/dL Normal 74-106 [facility] Comment on above: Performed By: #### B MP ####[facility] Cdnxjuqxoh519[address] [place], [place] [address]Dr. Kandielda Shawn Potassium [Moles/Vol] 3.7 mmol/L Normal 3.5-5.1 [facility] Comment on above: Performed By: #### B MP ####[facility] Udrdmgvjhf2215[address] [place], [place] [address]Dr. Kandielda Shawn Sodium [Moles/Vol] 147 mmol/L Critically high 136-145 [facility] Comment on above: Performed By: #### B MP ####[facility] Qgwjsaczwh785[address] [place], [place] [address]Dr. Amina Escobar Urea nitrogen [Mass/Vol] 26.0 mg/dL Critically high 7.0-18.0 [facility] Comment on above: Performed By: #### B MP ####[facility] [address]xpsbgivqn[address] [place] [address]Dr. Amina Escobar Urea nitrogen/Creatinine [Mass ratio] 22.8 mg/mg Normal The [facility] Comment on above: Performed By: #### B MP ####[facility] Myuadeldwr[address] [place] [address]Dr. Amina Escobar XR CHEST 2 Von 07-28-2022 XR CHEST 2 V Normal The [facility] CBC AUTO DIFFon 07-27-2022 BASO # 0.0 103/ul Normal 0.0-0.1 [facility] Comment on above: Performed By: #### C BC ####[facility] Ptqfdsjabw374[address] [place], [place] [address]Dr. Amina Escobar Basophils/100 WBC (Bld) 0.5 % Normal 0.2-2.0 The [facility] Comment on above: Performed By: #### C BC ####[facility] Yzuugvgaht18[address] [place], [place] [address]Dr. Amina Escobar EO # 0.2 103/ul Normal 0.0-0.7 The [facility] Comment on above: Performed By: #### C BC ####[facility] Xfwfssmaey[address] [place], [place] [address]Dr. Amina Escobar Eosinophils/100 WBC (Bld) 2.8 % Normal 0.9-7.0 The [facility] Comment on above: Performed By: #### C BC ####[facility] Ntzsukzyoi620[address] [place], [place] [address]Dr. Amina Escobar Erythrocyte distribution width (RBC) [Ratio] 15.0 % Normal 11.0-15.0 The [facility] Comment on above: Performed By: #### C BC ####[facility] Cxbzvardvo[address] [place], [place] [address]Dr. Amina Escobar Hematocrit (Bld) [Volume fraction] 37.0 % Critically low 42.0-54.0 [facility] Comment on above: Performed By: #### C BC ####[facility] Kqxutuvqea178[address] [place], [place] [address]Dr. Amina Escobar Hemoglobin (Bld) [Mass/Vol] 11.5 g/dL Critically low 14.0-18.0 [facility] Comment on above: Performed By: #### C BC ####[facility] Ovazaixoyp[address] [place] [address]DrMemo Escobar IG # 0.03 10e3/ul Normal 0.00-0.03 [facility] Comment on above: Performed By: #### C BC ####[facility] Tzlbqiroil9767 [place] [address]DrMemo Escobar IG % 0.5 % Normal 0.0-0.5 [facility] Comment on above: Performed By: #### C BC ####[facility] Ourczwrjht[address] [place], [place] [address]DrMemo Escobar LYMPH # 0.6 103/ul Critically low 1.2-3.8 [facility] Comment on above: Performed By: #### C BC ####[facility] Mowfkfjwna[address] [place], [place] [address]DrMemo Escobar Lymphocytes/100 WBC (Bld) 9.2 % Critically low 20.5-60.0 [facility] Comment on above: Performed By: #### C BC ####[facility] Qrnxewlaxj412[address] [place], [place] [address]DrMemo Escobar MANUAL DIFF REQ NO Normal [facility] Comment on above: Performed By: #### C BC ####[facility] Ovuftvndxg15[address] [place], [place] [address]DrMemo Escobar MCH (RBC) [Entitic mass] 27.8 pg Normal 25.9-34.0 The [facility] Comment on above: Performed By: #### C BC ####[facility] Dsaepjihls[address] [place] [address]DrMemo Escobar MCHC (RBC) [Mass/Vol] 31.1 g/dL Normal 29.9-35.2 The [facility] Comment on above: Performed By: #### C BC ####[facility] Eijeeruycd[address] [place], [place] [address]DrMemo Escobar MCV (RBC) [Entitic vol] 89.4 fL Normal 80.0-94.0 The [facility] Comment on above: Performed By: #### C BC ####[facility] Zeedgamrdh24[address] [place] [address]DrMemo Amina Shawn MONO # 0.6 103/ul Normal 0.3-0.8 The [facility] Comment on above: Performed By: #### C BC ####[facility] Mlslrovysa67[address] [place] [address]DrMemo Escobar Monocytes/100 WBC (Bld) 8.6 % Normal 1.7-12.0 [facility] Comment on above: Performed By: #### C BC ####[facility] Szkydmbleu86[address] [place], [place] [address]DrMemo Chauelda Shawn NEUT # 5.1 103/ul Normal 1.4-6.5 The [facility] Comment on above: Performed By: #### C BC ####[facility] Xgzikfwhpl[address]20[address] [place], [place] [address]DrMemo Escobar Neutrophils/100 WBC (Bld) 78.4 % Critically high 43.0-75.0 The [facility] Comment on above: Performed By: #### C BC ####[facility] Rweckfbxof729[address] [place], [place] [address]DrMemo Kandielda Escobar Platelet mean volume (Bld) [Entitic vol] 11.2 fL Normal 9.5-13.5 The [facility] Comment on above: Performed By: #### C BC ####[facility] Tqmjitgjwf209[address] [place], [place] [address]Dr. Amina Escobar PLT 239 103/ul Normal 150-450 [facility] Comment on above: Performed By: #### C BC ####[facility] Gnlpxzoozt623[address] [place], [place] [address]DrMemo Escobar RBC 4.14 106/ul Critically low 4.70-6.10 The [facility] Comment on above: Performed By: #### C BC ####[facility] Uysqbzmvjc309[address] [place], [place] [address]DrMemo Escobar WBC 6.4 103/ul Normal 4.0-11.0 The [facility] Comment on above: Performed By: #### C BC ####[facility] Tdwdcyhwed665[address] [place], [place] [address]Dr. Amina Escobar FREE T4on 07-27-2022 Free T4 [Mass/Vol] 1.31 ng/dL Normal 0.76-1.46 [facility] Comment on above: Performed By: #### F T4 ####[facility] Hvlrjpxcyy6747[address] [place], [place] [address]Dr. Amina Escobar LIVER PROFILEon 07-27-2022 Albumin [Mass/Vol] 3.5 g/dL Normal 3.4-5.0 The [facility] Comment on above: Performed By: #### T SH, LIVER ####[facility] Sguddawsjy275[address] [place], [place] [address]Dr. Amina Escobar Albumin/Globulin [Mass ratio] 0.9 {ratio} Normal [facility] Comment on above: Performed By: #### T SH, LIVER ####[facility] Zfmyibcgcm4025[address] [place], [place] [address]Dr. Amina Escobar ALP [Catalytic activity/Vol] 210 U/L Critically high 46-116 [facility] Comment on above: Performed By: #### T SH, LIVER ####[facility] Zmirbhgmee350[address] [place], [place] [address]Dr. Amina Escobar ALT [Catalytic activity/Vol] 19 U/L Normal 16-63 The [facility] Comment on above: Performed By: #### T SH, LIVER ####[facility] Tibzzefuon[address] [place], [place] [address]Dr. Amina Escobar AST [Catalytic activity/Vol] 13 U/L Critically low 15-37 The [facility] Comment on above: Performed By: #### T SH, LIVER ####[facility] Yamaqkqxin1864[address] [place], [place] [address]Dr. Amina Escobar BILI, CONJUGATED 0.1 mg/dL Normal 0.0-0.2 The [facility] Comment on above: Performed By: #### T SH, LIVER ####[facility] Zgijbvblwz414[address] [place], [place] [address]Dr. Amina Escobar Bilirubin [Mass/Vol] 0.4 mg/dL Normal 0.2-1.0 The [facility] Comment on above: Performed By: #### T SH, LIVER ####[facility] Ob[address]uhsgtl[address] [place] [address]Dr. Amina Escobar Globulin (S) [Mass/Vol] 3.7 g/dL Normal The [facility] Comment on above: Performed By: #### T SH, LIVER ####[facility] Cjbkjwsvpn30[address] [place], [place] [address]Dr. Amina Escobar Protein [Mass/Vol] 7.2 g/dL Normal 6.4-8.2 The [facility] Comment on above: Performed By: #### T SH, LIVER ####[facility] Igaraevgwa6032[address] [place], [place] [address]Dr. Amina Escobar TSHon 07-27-2022 TSH 1.669 uIU/mL Normal 0.358-3.74 0 The [facility] Comment on above: Performed By: #### T SH, LIVER ####[facility] Qokjwfluaq575[address] [place], [place] [address]Dr. Amina Escobar CBC AUTO DIFFon 07-15-2022 BASO # 0.1 103/ul Normal 0.0-0.1 The [facility] Comment on above: Performed By: #### C BC ####[facility] Ajdurnqrxv3855[address] [place], [place] [address]Dr. Amina Escobar Basophils/100 WBC (Bld) 0.7 % Normal 0.2-2.0 The [facility] Comment on above: Performed By: #### C BC ####[facility] Jtewcefcei[address]15[address] [place], [place] [address]Dr. Amina Escobar EO # 0.2 103/ul Normal 0.0-0.7 The [facility] Comment on above: Performed By: #### C BC ####[facility] Yocdkvhsbp432[address] [place], [place] [address]Dr. Amina Escobar Eosinophils/100 WBC (Bld) 2.3 % Normal 0.9-7.0 The [facility] Comment on above: Performed By: #### C BC ####[facility] Glheyvszrx[address] [place] [address]Dr. Amina Escobar Erythrocyte distribution width (RBC) [Ratio] 15.0 % Normal 11.0-15.0 [facility] Comment on above: Performed By: #### C BC ####[facility] Cufhcsbjio46[address] [place], [place] [address]Dr. Amina Escobar Hematocrit (Bld) [Volume fraction] 34.2 % Critically low 42.0-54.0 The [facility] Comment on above: Performed By: #### C BC ####[facility] Jluwgfnioo778[address] [place], [place] [address]Dr. Amina Escobar Hemoglobin (Bld) [Mass/Vol] 10.6 g/dL Critically low 14.0-18.0 [facility] Comment on above: Performed By: #### C BC ####[facility] Aitkvdgufm4868[address] [place], [place] [address]Dr. Amina Escobar IG # 0.03 10e3/ul Normal 0.00-0.03 [facility] Comment on above: Performed By: #### C BC ####[facility] Kjyezjlmgt[address] [place], [place] [address]Dr. Amina Escobar IG % 0.4 % Normal 0.0-0.5 [facility] Comment on above: Performed By: #### C BC ####[facility] Jpfttotlqq047[address] [place], [place] [address]Dr. Amina Escobar LYMPH # 0.6 103/ul Critically low 1.2-3.8 The [facility] Comment on above: Performed By: #### C BC ####[facility] Nnajkzrogr644[address] [place], [place] [address]Dr. Amina Escobar Lymphocytes/100 WBC (Bld) 8.8 % Critically low 20.5-60.0 [facility] Comment on above: Performed By: #### C BC ####[facility] Nsptnaznoj06[address] [place], [place] [address]Dr. Amina Escobar MANUAL DIFF REQ NO Normal The [facility] Comment on above: Performed By: #### C BC ####[facility] [address]wfypnww20[address] [place] [id number]. Amina Escobar MCH (RBC) [Entitic mass] 28.9 pg Normal 25.9-34.0 [facility] Comment on above: Performed By: #### C BC ####[facility] Swovhkrrrb[address] [place] [address]Dr. Amina Escobar MCHC (RBC) [Mass/Vol] 31.0 g/dL Normal 29.9-35.2 [facility] Comment on above: Performed By: #### C BC ####[facility] Kholgtuhfk27[address] [place] [address]Dr. Amina Escobar MCV (RBC) [Entitic vol] 93.2 fL Normal 80.0-94.0 [facility] Comment on above: Performed By: #### C BC ####[facility] Xnzkejnbsh[address] [place], [place] [address]Dr. Kandielda Escobar MONO # 0.6 103/ul Normal 0.3-0.8 The [facility] Comment on above: Performed By: #### C BC ####[facility] Doqstmsieh[address] [place], [place] [address]Dr. Kandielda Escobar Monocytes/100 WBC (Bld) 8.8 % Normal 1.7-12.0 The [facility] Comment on above: Performed By: #### C BC ####[facility] Wvnuvgmkca695[address] [place], [place] [address]Dr. Amina Escobar NEUT # 5.6 103/ul Normal 1.4-6.5 [facility] Comment on above: Performed By: #### C BC ####[facility] Whsufhyehq[address] [place], [place] [address]Dr. Amina Escobar Neutrophils/100 WBC (Bld) 79.0 % Critically high 43.0-75.0 [facility] Comment on above: Performed By: #### C BC ####[facility] Jpierolohj[address] [place], [place] [address]Dr. Amina Escobar Platelet mean volume (Bld) [Entitic vol] 10.1 fL Normal 9.5-13.5 [facility] Comment on above: Performed By: #### C BC ####[facility] Tvrcwvvilf17[address] [place] [address]Dr. Amina Escobar PLT 215 103/ul Normal 150-450 [facility] Comment on above: Performed By: #### C BC ####[facility] Nkhbbmmloh5877 [place] [address]Dr. Amina Escobar RBC 3.67 106/ul Critically low 4.70-6.10 [facility] Comment on above: Performed By: #### C BC ####[facility] Dmuyhpifaq8[address] [place] [address]Dr. Amina Escobar WBC 7.1 103/ul Normal 4.0-11.0 [facility] Comment on above: Performed By: #### C BC ####[facility] Tpoirhcdwj[address] [place], [place] [address]Dr. Amina Escobar PRBC LEUKOREDUCEDon 07-09-20 PRBC LEUKOREDUCED Normal [facility] Comment on above: Performed By: #### P RBC, TNS ####[facility] Arasnoezdm[address] [place], [place] [address]Dr. Amina Escobar Performed By: #### P RBC ####[facility] Lytzmkkgir[address] [place], [place] [address]Dr. Amina Escobar PRBC LEUKOREDUCED Normal [facility] Comment on above: Performed By: #### P RBC ####[facility] Gxbqadchtb[address] [place], [place] [address]Dr. Amina Escobar HEMOGLOBIN AND HEMATOCRITon 07-08-2022 Hematocrit (Bld) [Volume fraction] 25.4 % Critically low 42.0-54.0 [facility] Comment on above: Performed By: #### H GBHCT ####[facility] Hargkluhxg[address] [place], [place] [address]Dr. Amina Escobar Hemoglobin (Bld) [Mass/Vol] 7.5 g/dL Critically low 14.0-18.0 [facility] Comment on above: Performed By: #### H GBHCT ####[facility] Usbbuxfzxv367[address] [place], [place] [address]Dr. Amina Escobar TYPE AND SCREENon 07-08-2022 TYPE AND SCREEN Negative Normal [facility] Comment on above: Performed By: #### P RBC, TNS ####[facility] Saynczblat[address] [place] [address]Dr. Amina Escobar CBC AUTO DIFFon 07-06-2022 BASO # 0.1 103/ul Normal 0.0-0.1 [facility] Comment on above: Performed By: #### C BC ####[facility] Zsszzxoyko30[address] [place] [id number]. Amina Escobar Basophils/100 WBC (Bld) 0.8 % Normal 0.2-2.0 [facility] Comment on above: Performed By: #### C BC ####[facility] Vjmbjalnrn8[address] [place] [address]Dr. Amina Escobar EO # 0.1 103/ul Normal 0.0-0.7 [facility] Comment on above: Performed By: #### C BC ####[facility] Gkgtknynjc45[address] [place] [address]Dr. Amina Escobar Eosinophils/100 WBC (Bld) 1.8 % Normal 0.9-7.0 [facility] Comment on above: Performed By: #### C BC ####[facility] Mtndmombtw42[address] [place] [id number]. Amina Escobar Erythrocyte distribution width (RBC) [Ratio] 15.9 % Critically high 11.0-15.0 [facility] Comment on above: Performed By: #### C BC ####[facility] Vmfvulucry9[address] [place] [id number]. Amina Escobar Hematocrit (Bld) [Volume fraction] 24.7 % Critically low 42.0-54.0 [facility] Comment on above: Performed By: #### C BC ####[facility] Cddfpxwfhd6340 [place] [address]Dr. Amina Escobar Hemoglobin (Bld) [Mass/Vol] 7.4 g/dL Critically low 14.0-18.0 [facility] Comment on above: Performed By: #### C BC ####[facility] Vtndxaedte8164 [place] [id number]. Amina Escobar IG # 0.02 10e3/ul Normal 0.00-0.03 [facility] Comment on above: Performed By: #### C BC ####[facility] Tjblrpmwbf7743 [place] [id number]. Amina Escobar IG % 0.3 % Normal 0.0-0.5 [facility] Comment on above: Performed By: #### C BC ####[facility] Axrhqhzjwu4860 [place] [address]Dr. Amina Escobar LYMPH # 0.7 103/ul Critically low 1.2-3.8 [facility] Comment on above: Performed By: #### C BC ####[facility] Bxcativjsx44[address] [place], [place] [address]Dr. Kandielda Escobar Lymphocytes/100 WBC (Bld) 10.6 % Critically low 20.5-60.0 [facility] Comment on above: Performed By: #### C BC ####[facility] Exxhvsfaut[address] [place], [place] [address]Dr. Amina Escobar MANUAL DIFF REQ NO Normal [facility] Comment on above: Performed By: #### C BC ####[facility] Tuliywtevh[address] [place], [place] [address]Dr. Amina Escobar MCH (RBC) [Entitic mass] 29.1 pg Normal 25.9-34.0 [facility] Comment on above: Performed By: #### C BC ####[facility] Vyzuqwksxe[address] [place], [place] [address]Dr. Amina Escobar MCHC (RBC) [Mass/Vol] 30.0 g/dL Normal 29.9-35.2 [facility] Comment on above: Performed By: #### C BC ####[facility] Nsvpjrpusz32[address] [place] [address]Dr. Amina Escobar MCV (RBC) [Entitic vol] 97.2 fL Critically high 80.0-94.0 [facility] Comment on above: Performed By: #### C BC ####[facility] Wkixthonix6[address] [place] [id number]. Amina Escobar MONO # 0.6 103/ul Normal 0.3-0.8 [facility] Comment on above: Performed By: #### C BC ####[facility] Nxqpkqxpiz7720 [place] [id number]. Amina Escobar Monocytes/100 WBC (Bld) 9.1 % Normal 1.7-12.0 [facility] Comment on above: Performed By: #### C BC ####[facility] Zmmpohsoyk6[address] [place] [id number]. Amina Escobar NEUT # 4.8 103/ul Normal 1.4-6.5 [facility] Comment on above: Performed By: #### C BC ####[facility] Pwfhbgbowo6822 [place] [id number]. Amina Escobar Neutrophils/100 WBC (Bld) 77.4 % Critically high 43.0-75.0 [facility] Comment on above: Performed By: #### C BC ####[facility] Fxxijqqvnx2517 [place] [id number]. Amina Escobar Platelet mean volume (Bld) [Entitic vol] 10.4 fL Normal 9.5-13.5 [facility] Comment on above: Performed By: #### C BC ####[facility] Ygznytxccy1702 [place] [id number]. Amina Escobar PLT 263 103/ul Normal 150-450 [facility] Comment on above: Performed By: #### C BC ####[facility] Qjqdmnzyov1732 [place] [id number]. Amina Escobar RBC 2.54 106/ul Critically low 4.70-6.10 [facility] Comment on above: Performed By: #### C BC ####[facility] Lwopbcjihe1219 [place] [id number]. Amina Escobar WBC 6.1 103/ul Normal 4.0-11.0 [facility] Comment on above: Performed By: #### C BC ####[facility] Btdegzecdb7260 [place] [address]Dr. Amina Escobar HEMOGLOBIN AND HEMATOCRITon 06-23-2022 Hematocrit (Bld) [Volume fraction] 29.2 % Critically low 42.0-54.0 [facility] Comment on above: Performed By: #### H GBHCT ####[facility] Eptavbymxe[address] [place], [place] [address]Dr. Amina Escobar Hemoglobin (Bld) [Mass/Vol] 9.3 g/dL Critically low 14.0-18.0 [facility] Comment on above: Performed By: #### H GBHCT ####[facility] Hocqzcawzm8738[address] [place], [place] [address]Dr. Amina Escobar TYPE AND SCREENon 06-23-2022 TYPE AND SCREEN Negative Normal [facility] Comment on above: Performed By: #### T NS ####[facility] Mnunyayuyh54[address] [place], [place] [address]Dr. Amina Escobar CBC AUTO DIFFon 06-22-2022 BASO # 0.0 103/ul Normal 0.0-0.1 [facility] Comment on above: Performed By: #### C BC ####[facility] Mmviuoggkm685[address] [place], [place] [address]Dr. Amina Escobar Basophils/100 WBC (Bld) 0.7 % Normal 0.2-2.0 [facility] Comment on above: Performed By: #### C BC ####[facility] Xuokqvfglb567[address] [place], [place] [address]Dr. Amina Escobar EO # 0.2 103/ul Normal 0.0-0.7 [facility] Comment on above: Performed By: #### C BC ####[facility] Oipvmqumgf508[address] [place], [place] [address]Dr. Amina Escobar Eosinophils/100 WBC (Bld) 3.2 % Normal 0.9-7.0 [facility] Comment on above: Performed By: #### C BC ####[facility] Tmlblhpcqv15[address] [place], [place] [address]Dr. Amina Escobar Erythrocyte distribution width (RBC) [Ratio] 15.6 % Critically high 11.0-15.0 [facility] Comment on above: Performed By: #### C BC ####[facility] [address] [place] [address]Dr. Amina Escobar Hematocrit (Bld) [Volume fraction] 24.9 % Critically low 42.0-54.0 [facility] Comment on above: Performed By: #### C BC ####[facility] Yugenprpaq[address] [place] [address]Dr. Amina Escobar Hemoglobin (Bld) [Mass/Vol] 7.6 g/dL Critically low 14.0-18.0 [facility] Comment on above: Performed By: #### C BC ####[facility] Cqghrldrxr5901[address] [place], [place] [address]DrMemo Escobar IG # 0.03 10e3/ul Normal 0.00-0.03 [facility] Comment on above: Performed By: #### C BC ####[facility] Umlpxpcbld175[address] [place], [place] [address]DrMemo Escobar IG % 0.5 % Normal 0.0-0.5 [facility] Comment on above: Performed By: #### C BC ####[facility] Sycmctjojn145[address] [place], [place] [address]DrMemo Escobar LYMPH # 0.6 103/ul Critically low 1.2-3.8 [facility] Comment on above: Performed By: #### C BC ####[facility] Ixwiinaqjw9426[address] [place], [place] [address]DrMemo Escobar Lymphocytes/100 WBC (Bld) 9.3 % Critically low 20.5-60.0 [facility] Comment on above: Performed By: #### C BC ####[facility] Trufboegte2401[address] [place], [place] [address]DrMemo Escobar MANUAL DIFF REQ NO Normal [facility] Comment on above: Performed By: #### C BC ####[facility] Hmqpsdlxit385[address] [place], [place] [address]DrMemo Escobar MCH (RBC) [Entitic mass] 30.2 pg Normal 25.9-34.0 [facility] Comment on above: Performed By: #### C BC ####[facility] Qsghlwxpvz6[address] [place] [address]Dr. Amina Escobar MCHC (RBC) [Mass/Vol] 30.5 g/dL Normal 29.9-35.2 [facility] Comment on above: Performed By: #### C BC ####[facility] Ymuxljbazy060[address] [place] [address]Dr. Amina Escobar MCV (RBC) [Entitic vol] 98.8 fL Critically high 80.0-94.0 [facility] Comment on above: Performed By: #### C BC ####[facility] Qngzwxqkzw7112[address] [place], [place] [address]DrMemo Escobar MONO # 0.4 103/ul Normal 0.3-0.8 [facility] Comment on above: Performed By: #### C BC ####[facility] Gvdkexlqqs433[address] [place], [place] [address]Dr. Amina Escobar Monocytes/100 WBC (Bld) 6.4 % Normal 1.7-12.0 [facility] Comment on above: Performed By: #### C BC ####[facility] Wlcahyoaiu086[address] [place], [place] [address]Dr. Amina Escobar NEUT # 4.8 103/ul Normal 1.4-6.5 [facility] Comment on above: Performed By: #### C BC ####[facility] Thpcnrepqd424[address] [place], [place] [address]Dr. Amina Escobar Neutrophils/100 WBC (Bld) 79.9 % Critically high 43.0-75.0 [facility] Comment on above: Performed By: #### C BC ####[facility] Yejuwiklcs769[address] [place], [place] [address]DrMemo Escobar Platelet mean volume (Bld) [Entitic vol] 10.3 fL Normal 9.5-13.5 [facility] Comment on above: Performed By: #### C BC ####[facility] Rlyagbwjbz208[address] [place], [place] [address]Dr. Amina Escobar PLT 205 103/ul Normal 150-450 [facility] Comment on above: Performed By: #### C BC ####[facility] O[address]knxblib[address] [place] [id number]. Amina Escobar RBC 2.52 106/ul Critically low 4.70-6.10 [facility] Comment on above: Performed By: #### C BC ####[facility] Uazsxwrsdq5985 [place] [id number]. Amina Shawn WBC 5.9 103/ul Normal 4.0-11.0 [facility] Comment on above: Performed By: #### C BC ####[facility] Ecpeqcucrg[address] [place], [place] [address]Dr. Amina Shawn CBC AUTO DIFFon 06-16-2022 BASO # 0.1 103/ul Normal 0.0-0.1 [facility] Comment on above: Performed By: #### C BC ####[facility] Ngojhbvgld037[address] [place], [place] [address]Dr. Kandielda Escobar Basophils/100 WBC (Bld) 0.7 % Normal 0.2-2.0 [facility] Comment on above: Performed By: #### C BC ####[facility] Ioutuonxvt311[address] [place], [place] [address]Dr. Amina Escobar EO # 0.2 103/ul Normal 0.0-0.7 [facility] Comment on above: Performed By: #### C BC ####[facility] Uqhbcggvkj417[address] [place], [place] [address]Dr. Amina Shawn Eosinophils/100 WBC (Bld) 2.7 % Normal 0.9-7.0 [facility] Comment on above: Performed By: #### C BC ####[facility] Uljyiryjiu24[address] [place], [place] [address]Dr. Amina Shawn Erythrocyte distribution width (RBC) [Ratio] 16.5 % Critically high 11.0-15.0 [facility] Comment on above: Performed By: #### C BC ####[facility] Itsjhzvwxh080197 [address] [place], [place] [address]Dr. Kandielda Escobar Hematocrit (Bld) [Volume fraction] 28.5 % Critically low 42.0-54.0 [facility] Comment on above: Performed By: #### C BC ####[facility] Ioppuocsex26[address] [place] [address]DrMemo Escobar Hemoglobin (Bld) [Mass/Vol] 8.6 g/dL Critically low 14.0-18.0 [facility] Comment on above: Performed By: #### C BC ####[facility] Qrebcmwngn926[address] [place], [place] [address]DrMemo Escobar IG # 0.03 10e3/ul Normal 0.00-0.03 [facility] Comment on above: Performed By: #### C BC ####[facility] Qtjeqblzxs509[address] [place], [place] [address]DrMemo Escobar IG % 0.4 % Normal 0.0-0.5 [facility] Comment on above: Performed By: #### C BC ####[facility] Paafxlcyvw848[address] [place], [place] [address]DrMemo Escobar LYMPH # 0.8 103/ul Critically low 1.2-3.8 [facility] Comment on above: Performed By: #### C BC ####[facility] Bhobxwbzsy5735[address] [place], [place] [address]DrMemo Escobar Lymphocytes/100 WBC (Bld) 11.1 % Critically low 20.5-60.0 [facility] Comment on above: Performed By: #### C BC ####[facility] Qrswenzjkw5824[address] [place], [place] [address]DrMemo Escobar MANUAL DIFF REQ NO Normal [facility] Comment on above: Performed By: #### C BC ####[facility] Frlpuihdvb8401[address] [place], [place] [address]DrMemo Escobar MCH (RBC) [Entitic mass] 30.3 pg Normal 25.9-34.0 [facility] Comment on above: Performed By: #### C BC ####[facility] Etlofykrtc4540[address] [place], [place] [address]DrMemo Escobar MCHC (RBC) [Mass/Vol] 30.2 g/dL Normal 29.9-35.2 [facility] Comment on above: Performed By: #### C BC ####[facility] Imewbkglbi12[address] [place] [address]DrMemo Escobar MCV (RBC) [Entitic vol] 100.4 fL Critically high 80.0-94.0 [facility] Comment on above: Performed By: #### C BC ####[facility] Rdsfjgjteq28[address] [place] [address]DrMemo Escobar MONO # 0.6 103/ul Normal 0.3-0.8 [facility] Comment on above: Performed By: #### C BC ####[facility] Jxizikqvwr284[address] [place], [place] [address]DrMemo Escobar Monocytes/100 WBC (Bld) 8.4 % Normal 1.7-12.0 [facility] Comment on above: Performed By: #### C BC ####[facility] Hneahcvggh9617[address] [place], [place] [address]DrMemo Escobar NEUT # 5.3 103/ul Normal 1.4-6.5 [facility] Comment on above: Performed By: #### C BC ####[facility] Maihpteghi858[address] [place], [place] [address]DrMemo Escobar Neutrophils/100 WBC (Bld) 76.7 % Critically high 43.0-75.0 [facility] Comment on above: Performed By: #### C BC ####[facility] Aaackwsygz067[address] [place], [place] [address]DrMemo Escobar Platelet mean volume (Bld) [Entitic vol] 9.7 fL Normal 9.5-13.5 [facility] Comment on above: Performed By: #### C BC ####[facility] Syziaxrqur578[address] [place], [place] [address]DrMemo Escobar PLT 216 103/ul Normal 150-450 [facility] Comment on above: Performed By: #### C BC ####[facility] Rlxlqoapff0745[address] [place], [place] [address]DrMemo Escobar RBC 2.84 106/ul Critically low 4.70-6.10 [facility] Comment on above: Performed By: #### C BC ####[facility] Kvmkxvqnyt14[address] [place] [address]Dr. Amina Shawn WBC 6.9 103/ul Normal 4.0-11.0 [facility] Comment on above: Performed By: #### C BC ####[facility] Jdwtligywr7[address] [place] [address]Dr. Amina Escobar CBC AUTO DIFFon 06-10-2022 BASO # 0.0 103/ul Normal 0.0-0.1 [facility] Comment on above: Performed By: #### C BC ####[facility] Fkdmqdtulf430[address] [place], [place] [address]Dr. Amina Escobar Basophils/100 WBC (Bld) 0.5 % Normal 0.2-2.0 [facility] Comment on above: Performed By: #### C BC ####[facility] Fwnchywmjm1148[address] [place], [place] [address]DrMemo Escobar EO # 0.1 103/ul Normal 0.0-0.7 [facility] Comment on above: Performed By: #### C BC ####[facility] Tfteungfae0144[address] [place], [place] [address]Dr. Amina Escobar Eosinophils/100 WBC (Bld) 2.2 % Normal 0.9-7.0 [facility] Comment on above: Performed By: #### C BC ####[facility] Kcjkyikbaf106[address] [place], [place] [address]Dr. Amina Escobar Erythrocyte distribution width (RBC) [Ratio] 17.9 % Critically high 11.0-15.0 [facility] Comment on above: Performed By: #### C BC ####[facility] Esepxgcpma7767[address] [place], [place] [address]DrMemo Escobar Hematocrit (Bld) [Volume fraction] 24.5 % Critically low 42.0-54.0 [facility] Comment on above: Performed By: #### C BC ####[facility] Ztjbothaqk985[address] [place], [place] [address]Dr. Amina Escobar Hemoglobin (Bld) [Mass/Vol] 7.9 g/dL Critically low 14.0-18.0 [facility] Comment on above: Performed By: #### C BC ####[facility] Piokwacwwj15[address] [place] [address]DrMemo Escobar IG # 0.02 10e3/ul Normal 0.00-0.03 [facility] Comment on above: Performed By: #### C BC ####[facility] Ulwvjiocwy1805[address] [place], [place] [address]DrMemo Escobar IG % 0.3 % Normal 0.0-0.5 [facility] Comment on above: Performed By: #### C BC ####[facility] Zchskacjmt1548[address] [place], [place] [address]DrMemo Escobar LYMPH # 0.8 103/ul Critically low 1.2-3.8 [facility] Comment on above: Performed By: #### C BC ####[facility] Uinkhclrpz205[address] [place], [place] [address]DrMemo Escobar Lymphocytes/100 WBC (Bld) 12.3 % Critically low 20.5-60.0 [facility] Comment on above: Performed By: #### C BC ####[facility] Swpxasvosi4588[address] [place], [place] [address]DrMemo Escobar MANUAL DIFF REQ NO Normal [facility] Comment on above: Performed By: #### C BC ####[facility] Zvrykmwrgo169197 [address] [place], [place] [address]DrMemo Escobar MCH (RBC) [Entitic mass] 31.6 pg Normal 25.9-34.0 [facility] Comment on above: Performed By: #### C BC ####[facility] Qncwwznrwn7816[address] [place], [place] [address]DrMemo Escobar MCHC (RBC) [Mass/Vol] 32.2 g/dL Normal 29.9-35.2 [facility] Comment on above: Performed By: #### C BC ####[facility] Hgskbahlls227[address] [place], [place] [address]DrMemo Escobar MCV (RBC) [Entitic vol] 98.0 fL Critically high 80.0-94.0 [facility] Comment on above: Performed By: #### C BC ####[facility] Ujvleqplrr3264[address] [place], [place] [address]DrMmeo Amina Escobar MONO # 0.5 103/ul Normal 0.3-0.8 [facility] Comment on above: Performed By: #### C BC ####[facility] Gtsldqkxfk33119[address] [place], [place] [address]DrMemo Amina Shawn Monocytes/100 WBC (Bld) 8.6 % Normal 1.7-12.0 [facility] Comment on above: Performed By: #### C BC ####[facility] Vnrrncquhk411[address] [place], [place] [address]Dr. Amina Escobar NEUT # 4.8 103/ul Normal 1.4-6.5 [facility] Comment on above: Performed By: #### C BC ####[facility] Bpckuawkjq906[address] [place], [place] [address]Dr. Amina Shawn Neutrophils/100 WBC (Bld) 76.1 % Critically high 43.0-75.0 [facility] Comment on above: Performed By: #### C BC ####[facility] Qhnouxykau94[address] [place], [place] [address]DrMemo Amina Shawn Platelet mean volume (Bld) [Entitic vol] 10.4 fL Normal 9.5-13.5 [facility] Comment on above: Performed By: #### C BC ####[facility] Lzgjefkvfq5523[address] [place], [place] [address]Dr. Amina Shawn PLT 206 103/ul Normal 150-450 [facility] Comment on above: Performed By: #### C BC ####[facility] Zldmcmffqn2027[address] [place], [place] [address]DrMemo Escobar RBC 2.50 106/ul Critically low 4.70-6.10 [facility] Comment on above: Performed By: #### C BC ####[facility] Udedyxbigs2433[address] [place], [place] [address]DrMemo Escobar WBC 6.3 103/ul Normal 4.0-11.0 [facility] Comment on above: Performed By: #### C BC ####[facility] Sjqdapaudc95119[address] [place], [place] [address]Dr. Amina Escobar HEMOGLOBIN AND HEMATOCRITon 06-10-2022 Hematocrit (Bld) [Volume fraction] 27.8 % Critically low 42.0-54.0 [facility] Comment on above: Performed By: #### H GBHCT ####[facility] Tliawxpfqo2337[address] [place], [place] [address]Dr. Amina Escobar Hemoglobin (Bld) [Mass/Vol] 9.0 g/dL Critically low 14.0-18.0 [facility] Comment on above: Performed By: #### H GBHCT ####[facility] Lkkclqfmpn288[address] [place], [place] [address]Dr. Amina Escobar CBC AUTO DIFFon 06-09-2022 BASO # 0.0 103/ul Normal 0.0-0.1 [facility] Comment on above: Performed By: #### C BC ####[facility] Bedjblblfe6955[address] [place], [place] [address]Dr. Amina Escobar Basophils/100 WBC (Bld) 0.6 % Normal 0.2-2.0 [facility] Comment on above: Performed By: #### C BC ####[facility] Wkxbrosglh534[address] [place], [place] [address]Dr. Amina Escobar EO # 0.1 103/ul Normal 0.0-0.7 [facility] Comment on above: Performed By: #### C BC ####[facility] Dlmuplhywf257[address] [place], [place] [address]Dr. Amina Escobar Eosinophils/100 WBC (Bld) 1.8 % Normal 0.9-7.0 [facility] Comment on above: Performed By: #### C BC ####[facility] Fsqpsezqrp3636[address] [place], [place] [address]Dr. Amina Escobar Erythrocyte distribution width (RBC) [Ratio] 16.9 % Critically high 11.0-15.0 [facility] Comment on above: Performed By: #### C BC ####[facility] Bpzkvjhqyu46[address] [place] [address]Dr. Amina Escobar Hematocrit (Bld) [Volume fraction] 21.2 % Critically low 42.0-54.0 [facility] Comment on above: Performed By: #### C BC ####[facility] Eqgvjkizbi85[address] [place] [address]Dr. Amina Escobar Hemoglobin (Bld) [Mass/Vol] 6.4 g/dL Critically low 14.0-18.0 [facility] Comment on above: Performed By: #### C BC ####[facility] Wccrahwlbc[address] [place], [place] [address]Dr. Amina Escobar IG # 0.03 10e3/ul Normal 0.00-0.03 [facility] Comment on above: Performed By: #### C BC ####[facility] Zzcoohqpsd2677[address] [place], [place] [address]Dr. Amina Escobar IG % 0.5 % Normal 0.0-0.5 [facility] Comment on above: Performed By: #### C BC ####[facility] Bujwhkjdzn934[address] [place], [place] [address]Dr. Amina Escobar LYMPH # 0.6 103/ul Critically low 1.2-3.8 [facility] Comment on above: Performed By: #### C BC ####[facility] Zdsdzmqwmt729[address] [place], [place] [address]Dr. Amina Escobar Lymphocytes/100 WBC (Bld) 8.9 % Critically low 20.5-60.0 [facility] Comment on above: Performed By: #### C BC ####[facility] Fbbxljghji4350[address] [place], [place] [address]Dr. Amina Escobar MANUAL DIFF REQ NO Normal [facility] Comment on above: Performed By: #### C BC ####[facility] Ryhpxagfzd439[address] [place], [place] [address]Dr. Amina Escobar MCH (RBC) [Entitic mass] 31.1 pg Normal 25.9-34.0 [facility] Comment on above: Performed By: #### C BC ####[facility] Xsnmjzftoi80[address] [place] [id number]. Amina Shawn MCHC (RBC) [Mass/Vol] 30.2 g/dL Normal 29.9-35.2 [facility] Comment on above: Performed By: #### C BC ####[facility] Fqhypexdbt8878 [place] [id number]. Kandielda Escobar MCV (RBC) [Entitic vol] 102.9 fL Critically high 80.0-94.0 [facility] Comment on above: Performed By: #### C BC ####[facility] Crhcggaold932[address] [place], [place] [address]Dr. Amina Escobar MONO # 0.4 103/ul Normal 0.3-0.8 [facility] Comment on above: Performed By: #### C BC ####[facility] Jdfijtpnnq5770[address] [place], [place] [address]Dr. Amina Escobar Monocytes/100 WBC (Bld) 6.6 % Normal 1.7-12.0 [facility] Comment on above: Performed By: #### C BC ####[facility] Sjkwydddpj9724[address] [place], [place] [address]Dr. Amina Escobar NEUT # 5.4 103/ul Normal 1.4-6.5 [facility] Comment on above: Performed By: #### C BC ####[facility] [facility] Ryhkqdujbl[address] [place], [place] [address]Dr. Amina Escobar Neutrophils/100 WBC (Bld) 81.6 % Critically high 43.0-75.0 [facility] Comment on above: Performed By: #### C BC ####[facility] Arjthcbanq485[address] [place], [place] [address]Dr. Amina Escobar Platelet mean volume (Bld) [Entitic vol] 9.7 fL Normal 9.5-13.5 The [facility] Comment on above: Performed By: #### C BC ####[facility] Pqpszcjtbj[address] [place], [place] [address]Dr. Amina Escobar PLT 201 103/ul Normal 150-450 [facility] Comment on above: Performed By: #### C BC ####[facility] Odqyimenjs5906 [place] [id number]. Amina Escobar RBC 2.06 106/ul Critically low 4.70-6.10 The [facility] Comment on above: Performed By: #### C BC ####[facility] Gigusybicj4878 [place] [id number]. Amina Escobar WBC 6.6 103/ul Normal 4.0-11.0 The [facility] Comment on above: Performed By: #### C BC ####[facility] Ferdjjrdso5[address] [place], [place] [address]Dr. Amina Escobar TYPE AND SCREENon 06-09-2022 TYPE AND SCREEN Negative Normal The [facility] Comment on above: Performed By: #### T NS ####[facility] Lzinkqmlyf[address] [place], [place] [address]Dr. Amina Escobar CBC AUTO DIFFon 06-02-2022 BASO # 0.1 103/ul Normal 0.0-0.1 The [facility] Comment on above: Performed By: #### C BC ####[facility] Rkwlpumydj24[address] [place], [place] [address]Dr. Amina Escobar Basophils/100 WBC (Bld) 0.6 % Normal 0.2-2.0 The [facility] Comment on above: Performed By: #### C BC ####[facility] Lvxcjgghzc12[address] [place], [place] [address]Dr. Amina Escobar EO # 0.2 103/ul Normal 0.0-0.7 The [facility] Comment on above: Performed By: #### C BC ####[facility] Qfwvxfbwhs[address] [place], [place] [address]Dr. Amina Escobar Eosinophils/100 WBC (Bld) 2.5 % Normal 0.9-7.0 The [facility] Comment on above: Performed By: #### C BC ####[facility] Zidiocmrxy08[address] [place], [place] [address]Dr. Amina Escobar Erythrocyte distribution width (RBC) [Ratio] 17.6 % Critically high 11.0-15.0 The [facility] Comment on above: Performed By: #### C BC ####[facility] Dwumfxxqsz7268 [place] [address]Dr. Kandielda Escobar Hematocrit (Bld) [Volume fraction] 26.6 % Critically low 42.0-54.0 [facility] Comment on above: Performed By: #### C BC ####[facility] Ctstysntpj339[address] [place], [place] [address]Dr. Amina Escobar Hemoglobin (Bld) [Mass/Vol] 8.2 g/dL Critically low 14.0-18.0 The [facility] Comment on above: Performed By: #### C BC ####[facility] Limqwnnggk8024[address] [place], [place] [address]Dr. Amina Escobar IG # 0.04 10e3/ul Critically high 0.00-0.03 [facility] Comment on above: Performed By: #### C BC ####[facility] Scrgywzkdk8436[address] [place], [place] [address]Dr. Amina Escobar IG % 0.5 % Normal 0.0-0.5 [facility] Comment on above: Performed By: #### C BC ####[facility] Iygijgcyra[address] [place], [place] [address]Dr. Amina Escobar LYMPH # 0.7 103/ul Critically low 1.2-3.8 [facility] Comment on above: Performed By: #### C BC ####[facility] Bvuwtcnvvj128[address] [place], [place] [address]Dr. Amina Escobar Lymphocytes/100 WBC (Bld) 8.5 % Critically low 20.5-60.0 The [facility] Comment on above: Performed By: #### C BC ####[facility] Fkhcttsioi2924[address] [place], [place] [address]Dr. Amina Escobar MANUAL DIFF REQ NO Normal The [facility] Comment on above: Performed By: #### C BC ####[facility] Ajixehuact2914[address] [place], [place] [address]Dr. Amina Escobar MCH (RBC) [Entitic mass] 31.7 pg Normal 25.9-34.0 The [facility] Comment on above: Performed By: #### C BC ####[facility] Gwkyxcizzb3684 [place] [id number]. Amina Shawn MCHC (RBC) [Mass/Vol] 30.8 g/dL Normal 29.9-35.2 The [facility] Comment on above: Performed By: #### C BC ####[facility] Krugvzobfn7636 [place] [id number]. Amina Escobar MCV (RBC) [Entitic vol] 102.7 fL Critically high 80.0-94.0 The [facility] Comment on above: Performed By: #### C BC ####[facility] Kqyuyxerdu[address] [place], [place] [address]Dr. Amina Escobar MONO # 0.6 103/ul Normal 0.3-0.8 The [facility] Comment on above: Performed By: #### C BC ####[facility] Gblkqksvxx90[address] [place], [place] [address]Dr. Amina Escobar Monocytes/100 WBC (Bld) 8.0 % Normal 1.7-12.0 The [facility] Comment on above: Performed By: #### C BC ####[facility] Cmmezdascg[address] [place], [place] [address]Dr. Kandielda Shawn NEUT # 6.4 103/ul Normal 1.4-6.5 The [facility] Comment on above: Performed By: #### C BC ####[facility] Gdxjmekcco[address] [place], [place] [address]Dr. Amina Escobar Neutrophils/100 WBC (Bld) 79.9 % Critically high 43.0-75.0 The [facility] Comment on above: Performed By: #### C BC ####[facility] Berkfhxtvo[address] [place], [place] [address]Dr. Amina Escobar Platelet mean volume (Bld) [Entitic vol] 10.1 fL Normal 9.5-13.5 The [facility] Comment on above: Performed By: #### C BC ####[facility] Fmxidodpgu08[address] [place], [place] [address]Dr. Amina Escobar PLT 211 103/ul Normal 150-450 The [facility] Comment on above: Performed By: #### C BC ####[facility] Jywylmaikt0475 [place] [id number]. Amina Escobar RBC 2.59 106/ul Critically low 4.70-6.10 The [facility] Comment on above: Performed By: #### C BC ####[facility] Lrylmvefmo5160 [place] [address]Dr. Amina Escobar WBC 8.0 103/ul Normal 4.0-11.0 The [facility] Comment on above: Performed By: #### C BC ####[facility] Nnsgiptbid9026 [place] [id number]. Amina Escobar CBC W MANUAL DIFFon 05-28-20 22 ANISOCYTOSIS 1+ Normal The [facility] Comment on above: Performed By: #### C BCMAN ####[facility] Nxctbhcfop3564 [place] [address]Dr. Amina Escobar ATYPICAL LYMPH # Normal The [facility] Comment on above: Performed By: #### C BCMAN ####[facility] Fdjiuutqzz3913 [place] [address]Dr. Amina Escobar ATYPICAL LYMPH % Normal The [facility] Comment on above: Performed By: #### C BCMAN ####[facility] Oxeaoxnrov1538 [place] [address]Dr. Amina Escobar BAND # 0.0 103/ul Normal 0.0-0.3 The [facility] Comment on above: Performed By: #### C BCMAN ####[facility] Hisbqscnss6359 [place] [address]Dr. Amina Escobar BAND % 0 % Normal 0-5 [facility] Comment on above: Performed By: #### C BCMAN ####[facility] Wrelmlczyk9768 [place] [address]Dr. Amina Escobar BASOM # 0.06 103/ul Normal 0.00-0.10 The [facility] Comment on above: Performed By: #### C BCMAN ####[facility] Gqzsjqlxne9148 [place] [address]Dr. Amina Escobar BASOM % 1.0 % Normal 0.2-2.0 The [facility] Comment on above: Performed By: #### C ALEX ####[facility] Wmmdbhqeib6965 [place] [address]Dr. Amina Escobar BLAST # Normal The [facility] Comment on above: Performed By: #### C ALEX ####[facility] Kldsmyphwl1912 [place] [address]Dr. Amina Escobar BLAST % Normal The [facility] Comment on above: Performed By: #### C ALEX ####[facility] Byagrjgoxe1465 [place] [address]Dr. Amina Escobar CORRECTED WBC Normal 4.0-11.0 The [facility] Comment on above: Performed By: #### C ALEX ####[facility] Cgksvqamye[address] [place], [place] [address]Dr. Amina Escobar EOS # 0.06 103/ul Normal 0.00-0.70 The [facility] Comment on above: Performed By: #### C ALEX ####[facility] Iiesfguqzr400[address] [place], [place] [address]Dr. Amina Escobar EOS% 1.0 % Normal 0.9-7.0 The [facility] Comment on above: Performed By: #### C ALEX ####[facility] Bdbrjotuus024[address] [place], [place] [address]Dr. Amina Escobar HCT 26.6 % Critically low 42.0-54.0 The [facility] Comment on above: Performed By: #### C ALEX ####[facility] Nxdqasvawc[address] [place], [place] [address]Dr. Amina Escobar HGB 8.5 g/dl Critically low 14.0-18.0 The [facility] Comment on above: Performed By: #### C ALEX ####[facility] Kznobdvzgp[address] [place], [place] [address]Dr. Amina Escobar HYPOCHROMASIA 1+ Normal The [facility] Comment on above: Performed By: #### C ALEX ####[facility] Mzkqhwzpbf67[address] [place], [place] [address]Dr. Amina Escobar LYMPHM # 0.93 103/ul Critically low 1.20-3.80 [facility] Comment on above: Performed By: #### C ALEX ####[facility] Iuaqpddlro6087 [place] [address]Dr. Amina Escobar LYMPHM% 15.0 % Critically low 20.5-60.0 [facility] Comment on above: Performed By: #### C ALEX ####[facility] Jvvblxbkoj7476 [place] [id number]. Amina Escobar MCH 31.3 pg Normal 25.9-34.0 [facility] Comment on above: Performed By: #### C ALEX ####[facility] Njnnlllnar1291 [place] [address]Dr. Amina Escobar MCHC 32.0 g/dl Normal 29.9-35.2 [facility] Comment on above: Performed By: #### C ALEX ####[facility] Hugceffkrn6470 [place] [address]Dr. Amina Escobar MCV 97.8 fL Critically high 80.0-94.0 [facility] Comment on above: Performed By: #### C ALEX ####[facility] Liqmrsmdhr[address] [place], [place] [address]Dr. Amina Escobar METAMYELOCYTE # Normal The [facility] Comment on above: Performed By: #### C ALEX ####[facility] Ckngqbyikq5061 [place] [address]Dr. Amina Escobar METAMYELOCYTE % Normal The [facility] Comment on above: Performed By: #### C ALEX ####[facility] Onhgphdbhh6917 [place] [address]Dr. Amina Escobar MONOM# 0.50 103/ul Normal 0.30-0.80 The [facility] Comment on above: Performed By: #### C ALEX ####[facility] Neoeldxjuy4119 [place] [address]Dr. Amina Escobar MONOM% 8.0 % Normal 1.7-12.0 [facility] Comment on above: Performed By: #### C ALEX ####[facility] Tizoggxcwn2609 [place] [address]Dr. Amina Escobar MPV 10.2 fL Normal 9.5-13.5 The [facility] Comment on above: Performed By: #### C ALEX ####[facility] Bgpkzvxddd4353 [place] [id number]. Amina Escobar MYELOCYTE # Normal The [facility] Comment on above: Performed By: #### C ALEX ####[facility] Pyqckwrveh6297 [place] [address]Dr. Amina Escobar MYELOCYTE % Normal The [facility] Comment on above: Performed By: #### C ALEX ####[facility] Ftvvtgehks1629 [place] [address]Dr. Amina Escobar NRBC Normal The [facility] Comment on above: Performed By: #### C ALEX ####[facility] Mzchakkyxa0837 [place] [address]Dr. Amina Escobar PLT 194 103/ul Normal 150-450 The [facility] Comment on above: Performed By: #### C ALEX ####[facility] Ffdlzwbtsq6613 [place] [address]Dr. Amina Escobar RBC 2.72 106/ul Critically low 4.70-6.10 The [facility] Comment on above: Performed By: #### C ALEX ####[facility] Nheazwrmfx5472 [place] [address]Dr. Amina Escobar RDW 18.6 % Critically high 11.0-15.0 The [facility] Comment on above: Performed By: #### C ALEX ####[facility] Yqgdwlcycs0296 [place] [address]Dr. Amina Escobar SEG # 4.65 103/ul Normal 1.40-6.50 The [facility] Comment on above: Performed By: #### C ALEX ####[facility] Pysauhbjdq4833 [place] [address]Dr. Amina Escobar SEG % 75.0 % Normal 43.0-75.0 The [facility] Comment on above: Performed By: #### C ALEX ####[facility] Tplwxnalnx0897 [place] [address]Dr. Amina Escobar WBC 6.2 103/ul Normal 4.0-11.0 The [facility] Comment on above: Performed By: #### C BCMAN ####[facility] Rheurocjek6290 [place] [id number]. Amina Escobar TYPE AND SCREENon 05-28-2022 TYPE AND SCREEN Negative Normal The [facility] Comment on above: Performed By: #### T NS ####[facility] Qyyqcjctgy5935 [place] [address]Dr. Amina Escobar CBC AUTO DIFFon 05-26-2022 BASO # 0.1 103/ul Normal 0.0-0.1 The [facility] Comment on above: Performed By: #### C BC ####[facility] Wuagzlriju0258 [place] [address]Dr. Amina Escobar Basophils/100 WBC (Bld) 0.7 % Normal 0.2-2.0 The [facility] Comment on above: Performed By: #### C BC ####[facility] Qzufvrmqwe6913 [place] [address]Dr. Amina Escobar EO # 0.2 103/ul Normal 0.0-0.7 The [facility] Comment on above: Performed By: #### C BC ####[facility] Xbtkumnhsj3340 [place] [address]Dr. Amina Escobar Eosinophils/100 WBC (Bld) 3.0 % Normal 0.9-7.0 The [facility] Comment on above: Performed By: #### C BC ####[facility] Ftdmsvsphi0377 [place] [address]Dr. Amina Escobar Erythrocyte distribution width (RBC) [Ratio] 18.9 % Critically high 11.0-15.0 The [facility] Comment on above: Performed By: #### C BC ####[facility] Vvapumaeca6435 [place] [address]Dr. Amina Escobar Hematocrit (Bld) [Volume fraction] 25.5 % Critically low 42.0-54.0 The [facility] Comment on above: Performed By: #### C BC ####[facility] Blubsmtjtv0790 [place] [id number]. Amina Escobar Hemoglobin (Bld) [Mass/Vol] 7.5 g/dL Critically low 14.0-18.0 The [facility] Comment on above: Performed By: #### C BC ####[facility] Awxzlhfgnd8316 [place] [address]Dr. Amina Escobar IG # 0.03 10e3/ul Normal 0.00-0.03 The [facility] Comment on above: Performed By: #### C BC ####[facility] Mojbtjmltg1776 [place] [address]Dr. Amina Escobar IG % 0.4 % Normal 0.0-0.5 The [facility] Comment on above: Performed By: #### C BC ####[facility] Emcgbpboaj3368 [place] [address]Dr. Amina Escobar LYMPH # 0.8 103/ul Critically low 1.2-3.8 The [facility] Comment on above: Performed By: #### C BC ####[facility] Jjlijuvruw6597 [place] [address]Dr. Amina Escobar Lymphocytes/100 WBC (Bld) 10.4 % Critically low 20.5-60.0 The [facility] Comment on above: Performed By: #### C BC ####[facility] Gxzzszndak3956 [place] [address]Dr. Amina Escobar MANUAL DIFF REQ NO Normal The [facility] Comment on above: Performed By: #### C BC ####[facility] Bzhsetuaon7757 [place] [address]Dr. Amina Escobar MCH (RBC) [Entitic mass] 29.8 pg Normal 25.9-34.0 The [facility] Comment on above: Performed By: #### C BC ####[facility] Oigzgtcopd93[address] [place], [place] [address]Dr. Amina Escobar MCHC (RBC) [Mass/Vol] 29.4 g/dL Critically low 29.9-35.2 The [facility] Comment on above: Performed By: #### C BC ####[facility] Svnnqqjacq5088 [place] [id number]. Amina Escobar MCV (RBC) [Entitic vol] 101.2 fL Critically high 80.0-94.0 The [facility] Comment on above: Performed By: #### C BC ####[facility] Dzxpqanbxk5303 [place] [id number]. Amina Escobar MONO # 0.6 103/ul Normal 0.3-0.8 The [facility] Comment on above: Performed By: #### C BC ####[facility] Ugsqxubzjf7788 [place] [id number]. Amina Escobar Monocytes/100 WBC (Bld) 8.0 % Normal 1.7-12.0 The [facility] Comment on above: Performed By: #### C BC ####[facility] Entbhvwtle3059 [place] [address]Dr. Amina Escobar NEUT # 5.7 103/ul Normal 1.4-6.5 The [facility] Comment on above: Performed By: #### C BC ####[facility] Ruxhguopwm7476 [place] [phone]. Amina Escobar Neutrophils/100 WBC (Bld) 77.5 % Critically high 43.0-75.0 The [facility] Comment on above: Performed By: #### C BC ####[facility] Xckdsikyei8309 [place] [id number]. Amina Escobar Platelet mean volume (Bld) [Entitic vol] 10.2 fL Normal 9.5-13.5 The [facility] Comment on above: Performed By: #### C BC ####[facility] Ckhtxkpdkz2770 [place] [id number]. Amina Escobar PLT 215 103/ul Normal 150-450 The [facility] Comment on above: Performed By: #### C BC ####[facility] Muuafsbfgn9248 [place] [phone]. Amina Escobar RBC 2.52 106/ul Critically low 4.70-6.10 The [facility] Comment on above: Performed By: #### C BC ####[facility] Phnvtjzkgk8201 [place] [address]Dr. Amina Escobar WBC 7.3 103/ul Normal 4.0-11.0 The [facility] Comment on above: Performed By: #### C BC ####[facility] Reahwrlmne[address] [place], [place] [address]Dr. Amina Escobar IRON AND TIBCon 05-26-2022 % SATURATION 13.6 % Normal The [facility] Comment on above: Performed By: #### F ETIBC ####[facility] Udjrrqssyu[address] [place], [place] [address]Dr. Amina Escobar Iron [Mass/Vol] 36.0 ug/dL Critically low 65.0-175.0 The [facility] Comment on above: Performed By: #### F ETIBC ####[facility] Lfonqmucis628[address] [place], [place] [address]Dr. Amina sEcobar TIBC DIRECT 265.0 ug/dL Normal 250.0-450. 0 The [facility] Comment on above: Performed By: #### F ETIBC ####[facility] Qrofgmtedu514[address] [place], [place] [address]Dr. Amina Escobar HEMOGLOBINon 05-18-2022 Hemoglobin (Bld) [Mass/Vol] 8.1 g/dL Critically low 14.0-18.0 The [facility] Comment on above: Performed By: #### H GB ####[facility] Qzwlxprrjv77[address] [place], [place] [address]Dr. Amina Escobar CBC W MANUAL DIFFon 05-09-20 22 ATYPICAL LYMPH # Normal The [facility] Comment on above: Performed By: #### C BCMAN ####[facility] Ojbgoveped[address] [place], [place] [address]Dr. Amina Escobar ATYPICAL LYMPH % Normal The [facility] Comment on above: Performed By: #### C BCMAN ####[facility] Fxwbiybawh8[address] [place], [place] [address]Dr. Amina Escobar BAND # 0.0 103/ul Normal 0.0-0.3 The [facility] Comment on above: Performed By: #### C BCMAN ####[facility] Jsidjybcqg199[address] [place], [place] [address]Dr. Amina Escobar BAND % 0 % Normal 0-5 The [facility] Comment on above: Performed By: #### C BCMAN ####[facility] Hcgcvserdo[address] [place] [address]Dr. Amina Escobar BASOM # 0.00 103/ul Normal 0.00-0.10 The [facility] Comment on above: Performed By: #### C BCMAN ####[facility] Ujsifvgpyh45[address] [place] [address]Dr. Amina Escobar BASOM % 0.0 % Critically low 0.2-2.0 The [facility] Comment on above: Performed By: #### C BCMAN ####[facility] Upaaymgozl32[address] [place] [address]Dr. Amina Escobar BLAST # Normal The [facility] Comment on above: Performed By: #### C BCKELLY ####[facility] Ziiqgqwgee06[address] [place] [address]Dr. Amina Escobar BLAST % Normal The [facility] Comment on above: Performed By: #### C BCKELLY ####[facility] Mlapabmatn0252 [place] [address]Dr. Amina Escobar CORRECTED WBC Normal 4.0-11.0 The [facility] Comment on above: Performed By: #### C BCKELLY ####[facility] Udworncknc7822 [place] [address]Dr. Amina Escobar EOS # 0.34 103/ul Normal 0.00-0.70 The [facility] Comment on above: Performed By: #### C BCMAN ####[facility] Xjuvqdqreg6688 [place] [address]Dr. Amina Escobar EOS% 4.0 % Normal 0.9-7.0 The [facility] Comment on above: Performed By: #### C BCMAN ####[facility] Squdsubtfe2031 [place] [address]Dr. Amina Escobar HCT 28.2 % Critically low 42.0-54.0 The [facility] Comment on above: Performed By: #### C BCMAN ####[facility] Eimnlixvkn3877 [place] [id number]. Amina Escobar HGB 8.8 g/dl Critically low 14.0-18.0 The [facility] Comment on above: Performed By: #### Florence JOHNSON ####[facility] Tqsxazhllw1593 [place] [id number]. Amina Escobar LYMPHM # 0.17 103/ul Critically low 1.20-3.80 The [facility] Comment on above: Performed By: #### Florence JOHNSON ####[facility] Wqynpgusdm1346 [place] [id number]. Amina Escobar LYMPHM% 2.0 % Critically low 20.5-60.0 The [facility] Comment on above: Performed By: #### Florence JOHNSON ####[facility] Kegloahyyp6247 [place] [id number]. Amina Escobar MCH 29.2 pg Normal 25.9-34.0 The [facility] Comment on above: Performed By: #### Florence JOHNSON ####[facility] Duizzlvoin0836 [place] [address]Dr. Amina Escobar MCHC 31.2 g/dl Normal 29.9-35.2 The [facility] Comment on above: Performed By: #### Florence JOHNSON ####[facility] Oqlxmgijpu2484 [place] [id number]. Amina Escobar MCV 93.7 fL Normal 80.0-94.0 The [facility] Comment on above: Performed By: #### Florence JOHNSON ####[facility] Zuamuqtsrq3484 [place] [id number]. Amina Escobar METAMYELOCYTE # Normal The [facility] Comment on above: Performed By: #### Florence JOHNSON ####[facility] Fqxyaolfux6113 [place] [id number]. Amina Escobar METAMYELOCYTE % Normal The [facility] Comment on above: Performed By: #### Florence JOHNSON ####[facility] Uejzyuqofs8414 [place] [id number]. Amina Escobar MONOM# 0.26 103/ul Critically low 0.30-0.80 The [facility] Comment on above: Performed By: #### C ALEX ####[facility] Wmvqaqvcow1243 [place] [id number]. Amina Escobar MONOM% 3.0 % Normal 1.7-12.0 [facility] Comment on above: Performed By: #### Florence JOHNSON ####[facility] Lttsqdzeap3695 [place] [id number]. Amina Escobar MPV 9.9 fL Normal 9.5-13.5 [facility] Comment on above: Performed By: #### Florence JOHNSON ####[facility] Kfrkfwwpbl4670 [place] [id number]. Amina Escobar MYELOCYTE # Normal The [facility] Comment on above: Performed By: #### Florence JOHNSON ####[facility] Njzaprypzz7324 [place] [id number]. Amina Escobar MYELOCYTE % Normal The [facility] Comment on above: Performed By: #### Florence JOHNSON ####[facility] Fqnowvyhsq0034 [place] [address]Dr. Amina Escobar NRBC Normal The [facility] Comment on above: Performed By: #### Florence JOHNSON ####[facility] Deultfstoh3298 [place] [id number]. Amina Escobar OVALOCYTES 2+ Normal The [facility] Comment on above: Performed By: #### Florence JOHNSON ####[facility] Zkbzrlywvi5463 [place] [id number]. Amina Escobar PLT 287 103/ul Normal 150-450 The [facility] Comment on above: Performed By: #### Florence JOHNSON ####[facility] Fpdxruqxvu1902 [place] [id number]. Amina Escobar RBC 3.01 106/ul Critically low 4.70-6.10 The [facility] Comment on above: Performed By: #### Florence JOHNSON ####[facility] Zztkeowctl6765 [place] [id number]. Amina Escobar RDW 18.6 % Critically high 11.0-15.0 The [facility] Comment on above: Performed By: #### C ALEX ####[facility] Okyvrwobzm8591 [place] [address]Dr. Amina Shawn SCHISTOCYTES SLIGHT Normal The [facility] Comment on above: Performed By: #### C ALEX ####[facility] Dtfvongkpd9122 [place] [phone]. Amina Escobar SEG # 7.74 103/ul Critically high 1.40-6.50 [facility] Comment on above: Performed By: #### C ALEX ####[facility] Eueygvlbrx1789 [place] [address]Dr. Amina Shawn SEG % 91.0 % Critically high 43.0-75.0 The [facility] Comment on above: Performed By: #### C ALEX ####[facility] Xpdpcbbiuc6276 [place] [address]Dr. Kandielda Escobar TOXIC GRANULATION 1+ Normal The [facility] Comment on above: Performed By: #### Florence JOHNSON ####[facility] Qjsbjnkctd369[address] [place], [place] [address]Dr. Amina Shawn WBC 8.5 103/ul Normal 4.0-11.0 The [facility] Comment on above: Performed By: #### Florence JOHNSON ####[facility] Pcbqencmsv184[address] [place], [place] [address]Dr. Amina Shawn ER URINE PROFILEon 2 Bilirubin Ql (U) Negative Normal NEGATIVE The [facility] Comment on above: Performed By: #### E RUR ####[facility] Jinlvpbcbe489397 [address] [place], [place] [address]Dr. Amina Escobar Clarity (U) CLEAR Normal CLEAR The [facility] Comment on above: Performed By: #### E RUR ####[facility] Szvkmebvqt039[address] [place], [place] [address]Dr. Amina Escobar Color (U) LT. YELLOW Normal YELLOW The [facility] Comment on above: Performed By: #### E RUR ####[facility] Wfrtxijzyg158397 [address] [place], [place] [address]Dr. Amina Escobar ERUAHD A micrscopic examina tion will be performed if indicated. Normal The [facility] Comment on above: Performed By: #### E RUR ####[facility] Fesbvdjjng[address] [place], [place] [address]Dr. Amina Escobar Glucose Ql (U) Negative Normal NEGATIVE [facility] Comment on above: Performed By: #### E RUR ####[facility] Qbgrazyekb3720[address] [place], [place] [address]Dr. Amina Escobar Hemoglobin Ql (U) Negative Normal NEGATIVE The [facility] Comment on above: Performed By: #### E RUR ####[facility] Mrgoahteug726[address] [place], [place] [address]Dr. Amina Escobar Ketones Ql (U) Negative Normal NEGATIVE The [facility] Comment on above: Performed By: #### E RUR ####[facility] Nyzqcapqxn35[address] [place], [place] [address]Dr. Amina Escobar LEUKOCYTES Negative Normal NEGATIVE [facility] Comment on above: Performed By: #### E RUR ####[facility] Sqsuqqalon6635[address] [place], [place] [address]Dr. Amina Escobar Nitrite Ql (U) Negative Normal NEGATIVE [facility] Comment on above: Performed By: #### E RUR ####[facility] Hdbhggqclu[address] [place], [place] [address]Dr. Amina Escobar pH (U) 5.5 [pH] Normal 5-9 [facility] Comment on above: Performed By: #### E RUR ####[facility] Tziocldlll868[address] [place], [place] [address]Dr. Amina Escobar SPEC GRAVITY 1.010 Normal 1.005-<=1. 025 The [facility] Comment on above: Performed By: #### E RUR ####[facility] Zetximhzrr49[address] [place], [place] [address]Dr. Amina Escobar UA PROTEIN Negative Normal NEGATIVE/ TRACE The [facility] Comment on above: Performed By: #### E RUR ####[facility] Fzlwgatyzb080[address] [place], [place] [address]Dr. Amina Escobar UR MICRO IND NOT INDICATED Normal The [facility] Comment on above: Performed By: #### E RUR ####[facility] Hpdjnvdmbt8368 [place] [address]Dr. Amina Escobar Urobilinogen Qn (U) 0.2 {Mel'U}/dL Normal 0.2 - 1. 0 [facility] Comment on above: Performed By: #### E RUR ####[facility] Ytbuucbkjg1318 [place] [address]Dr. Amina Escobar FERRITINon 05-09-2022 Ferritin [Mass/Vol] 132.0 ng/mL Normal 26.0-388.0 [facility] Comment on above: Performed By: #### F ERR, FETIBC ####[facility] Hmlfmkonri030[address] [place], [place] [address]Dr. Amina Escobar IRON AND TIBCon 05-09-2022 % SATURATION 11.4 % Normal [facility] Comment on above: Performed By: #### F ERR, FETIBC ####[facility] Rdyucblbzf479[address] [place], [place] [address]Dr. Amina Escobar Iron [Mass/Vol] 33.0 ug/dL Critically low 65.0-175.0 [facility] Comment on above: Performed By: #### F ERR, FETIBC ####[facility] Gfqlakccpo530[address] [place], [place] [address]Dr. Amina Escobar TIBC DIRECT 290.0 ug/dL Normal 250.0-450. 0 [facility] Comment on above: Performed By: #### F ERR, FETIBC ####[facility] Oeipqsonen856[address] [place], [place] [address]Dr. Amina Escobar PROF 14(COMP METB)on 022 Albumin [Mass/Vol] 3.1 g/dL Critically low 3.4-5.0 Th [facility] Comment on above: Performed By: #### C MP ####[facility] Baygxyfcwa633[address] [place], [place] [address]Dr. Amina Escobar Albumin/Globulin [Mass ratio] 0.8 {ratio} Normal [facility] Comment on above: Performed By: #### C MP ####[facility] Xficqfdcbc1254 [place] [address]Dr. Amina Escobar ALP [Catalytic activity/Vol] 166 U/L Critically high 46-116 The [facility] Comment on above: Performed By: #### C MP ####[facility] Flgbyluzdx049[address] [place], [place] [address]Dr. Amina Escobar ALT [Catalytic activity/Vol] 22 U/L Normal 16-63 The [facility] Comment on above: Performed By: #### C MP ####[facility] Dpmdvxsmde716[address] [place], [place] [address]Dr. Amina Shawn Anion gap [Moles/Vol] 12.5 mmol/L Normal [facility] Comment on above: Performed By: #### C MP ####[facility] Iofackglvq1712[address] [place], [place] [address]Dr. Amina Shawn AST [Catalytic activity/Vol] 14 U/L Critically low 15-37 The [facility] Comment on above: Performed By: #### C MP ####[facility] Hemvuuyhyb5945[address] [place], [place] [address]Dr. Amina Shawn Bilirubin [Mass/Vol] 0.7 mg/dL Normal 0.2-1.0 The [facility] Comment on above: Performed By: #### C MP ####[facility] Effzebkjkm125[address] [place], [place] [address]Dr. Amina Shawn Calcium [Mass/Vol] 8.5 mg/dL Normal 8.5-10.1 The [facility] Comment on above: Performed By: #### C MP ####[facility] Nhhmzbprsj765[address] [place], [place] [address]Dr. Kandielda Escobar Chloride [Moles/Vol] 108 mmol/L Critically high 98-107 The [facility] Comment on above: Performed By: #### C MP ####[facility] Evbetzaupu065[address] [place], [place] [address]Dr. Amina Escobar CO2 [Moles/Vol] 25.7 mmol/L Normal 21.0-32.0 The [facility] Comment on above: Performed By: #### C MP ####[facility] Dbwfdbqwyg805[address] [place], [place] [address]Dr. Amina Escobar Creatinine [Mass/Vol] 1.02 mg/dL Normal 0.70-1.30 The [facility] Comment on above: Performed By: #### C MP ####[facility] Fgmcxaoycs8158 [place] [address]Dr. Amina Escobar EGFR-AF MALAWIAN >60 Normal >=60 The [facility] Comment on above: Performed By: #### C MP ####[facility] Qislxqgpfz6481 [place] [address]Dr. Amina Shawn EGFR-NON AF MALAWIAN >60 Normal >=60 The [facility] Comment on above: Performed By: #### C MP ####[facility] Tqklktdtsn366[address] [place], [place] [address]Dr. Amina Shawn Globulin (S) [Mass/Vol] 3.7 g/dL Normal The [facility] Comment on above: Performed By: #### C MP ####[facility] Ajzvfzruxz875[address] [place], [place] [address]Dr. Amina Shawn Glucose [Mass/Vol] 97 mg/dL Normal 74-106 The [facility] Comment on above: Performed By: #### C MP ####[facility] Uyohlzsyuv216[address] [place], [place] [address]Dr. Amina Shawn Potassium [Moles/Vol] 4.2 mmol/L Normal 3.5-5.1 The [facility] Comment on above: Performed By: #### C MP ####[facility] Bjlymryzng704397 [address] [place], [place] [address]Dr. Amina Shawn Protein [Mass/Vol] 6.8 g/dL Normal 6.4-8.2 The [facility] Comment on above: Performed By: #### C MP ####[facility] Beeayopqap177[address] [place], [place] [address]Dr. Kandielda Shawn Sodium [Moles/Vol] 142 mmol/L Normal 136-145 The [facility] Comment on above: Performed By: #### C MP ####[facility] Fwegtnqbzj2224[address] [place], [place] [address]Dr. Amina Shawn Urea nitrogen [Mass/Vol] 23.0 mg/dL Critically high 7.0-18.0 The [facility] Comment on above: Performed By: #### C MP ####[facility] Fklumiukkv924[address] [place], [place] [address]Dr. Amina Escobar Urea nitrogen/Creatinine [Mass ratio] 22.5 mg/mg Normal The [facility] Comment on above: Performed By: #### C MP ####[facility] Vfqnsytggh06[address] [place], [place] [address]Dr. Amina Escobar PROTIMEon 05-09-2022 INR Coag (PPP) [Relative time] 1.16 {INR} Normal The [facility] Comment on above: Performed By: #### P TT, PT ####[facility] Crnmahtrhr804[address] [place], [place] [address]Dr. Amina Escobar INR GUIDELINES SEE BELOW Normal The [facility] Comment on above: Result Comment: LIMA RED INR: 2.0 - 3.0 CONDITIONS NOT LISTED BELOW 2.5 - 3.5 FOR PROSTHETIC HEART VALVE REPLACEMENT 2.5 - 3.5 RECURRENT THROMBOSIS Performed By: #### P TT, PT ####[facility] Rsqdcrvrla795[address] [place], [place] [address]Dr. Amina Escobar PT Coag (PPP) [Time] 12.4 s Critically high 9.0-11.6 The [facility] Comment on above: Performed By: #### P TT, PT ####[facility] Rjhxdtmexa7[address] [place], [place] [address]Dr. Amina Escobar PTTon 05-09-2022 aPTT Coag (Bld) [Time] 27.7 s Normal 22.3-36.2 The [facility] Comment on above: Performed By: #### P TT, PT ####[facility] Twhhupyitv[address] [place], [place] [address]Dr. Amina Escobar VIT B12 AND FOLATEon 022 Cobalamin (Vitamin B12) [Mass/Vol] 403.0 pg/mL Normal 193.0-986. 0 [facility] Comment on above: Performed By: #### B 12FOL ####[facility] Amozvptrld311[address] [place], [place] [address]Dr. Yilan Escobar FOLATE 10.00 ng/mL Normal 8.60-58.90 The [facility] Comment on above: Performed By: #### B 12FOL ####[facility] Rcjlcewhyk4163 [place] [address]Dr. Amina Escobar NM GI BLEEDon 05-08-2022 NM GI BLEED Normal The [facility] CBC W MANUAL DIFFon 05-06-20 ANISOCYTOSIS 1+ Normal The [facility] Comment on above: Performed By: #### C ALEX ####[facility] Lsxrbsvrpo[address] [place] [address]Dr. Amina Escobar ATYPICAL LYMPH # Normal The [facility] Comment on above: Performed By: #### C ALEX ####[facility] Dgacmespyh[address] [place], [place] [address]Dr. Amina Escobar ATYPICAL LYMPH % Normal The [facility] Comment on above: Performed By: #### C ALEX ####[facility] Mtvfjxodne89[address] [place], [place] [address]Dr. Yielda Escobar BAND # Normal 0.0-0.3 The [facility] Comment on above: Performed By: #### C ALEX ####[facility] Ewbdghnonu027[address] [place], [place] [address]Dr. Yilan Escobar BAND % Normal 0-5 The [facility] Comment on above: Performed By: #### C ALEX ####[facility] Ggovvvyqvw358[address] [place], [place] [address]Dr. Amina Escobar BASOM # 0.00 103/ul Normal 0.00-0.10 The [facility] Comment on above: Performed By: #### C ALEX ####[facility] Gfnacvfrlb0316 [place] [address]Dr. Amina Escobar BASOM % 0.0 % Critically low 0.2-2.0 The [facility] Comment on above: Performed By: #### C ALEX ####[facility] Psgwpphkmb43[address] [place], [place] [address]Dr. Kandilan Escobar BLAST # Normal The [facility] Comment on above: Performed By: #### C ALEX ####[facility] Tosfwnagnv0530 [place] [id number]. Amina Escobar BLAST % Normal The [facility] Comment on above: Performed By: #### C BCKELLY ####[facility] Nprhebcuwo5710 [place] [id number]. Amina Escobar CORRECTED WBC Normal 4.0-11.0 The [facility] Comment on above: Performed By: #### C BCKELLY ####[facility] Lumyighvtc1007 [place] [id number]. Amina Escobar EOS # 0.39 103/ul Normal 0.00-0.70 The [facility] Comment on above: Performed By: #### C ALEX ####[facility] Fjevmnrrvc2154 [place] [address]Dr. Amina Escobar EOS% 5.0 % Normal 0.9-7.0 [facility] Comment on above: Performed By: #### C ALEX ####[facility] Wgpdzjuiyg[address] [place], [place] [address]Dr. Amina Escobar HCT 26.2 % Critically low 42.0-54.0 The [facility] Comment on above: Performed By: #### C ALEX ####[facility] Oroaqwdtof7708 [place] [id number]. Amina Escobar HGB 8.1 g/dl Critically low 14.0-18.0 The [facility] Comment on above: Performed By: #### C ALEX ####[facility] Ynsoeztpas6257 [place] [id number]. Amina Escobar LYMPHM # 0.69 103/ul Critically low 1.20-3.80 The [facility] Comment on above: Performed By: #### C ALEX ####[facility] Ckxemsrcrs6918 [place] [id number]. Amina Escobar LYMPHM% 9.0 % Critically low 20.5-60.0 The [facility] Comment on above: Performed By: #### C ALEX ####[facility] Uwgslemyoa8815 [place] [id number]. Amina Escobar MCH 29.1 pg Normal 25.9-34.0 The [facility] Comment on above: Performed By: #### C ALEX ####[facility] [facility] [address]nrpql[address] [place] [id number]. Amina Escobar MCHC 30.9 g/dl Normal 29.9-35.2 [facility] Comment on above: Performed By: #### C ALEX ####[facility] Roiyktnmze8[address] [place] [id number]. Amina Escobar MCV 94.2 fL Critically high 80.0-94.0 [facility] Comment on above: Performed By: #### C ALEX ####[facility] Hfhfrmqfby96[address] [place] [id number]. Amina Escobar METAMYELOCYTE # Normal The [facility] Comment on above: Performed By: #### C ALEX ####[facility] Uzvgevvyca65[address] [place] [phone]. Amina Escobar METAMYELOCYTE % Normal The [facility] Comment on above: Performed By: #### C ALEX ####[facility] Krjulxbqfy[address] [place], [place] [address]Dr. Amina Escobar MONOM# 0.31 103/ul Normal 0.30-0.80 [facility] Comment on above: Performed By: #### C ALEX ####[facility] Kltkezbmgy69[address] [place] [id number]. Amina Escobar MONOM% 4.0 % Normal 1.7-12.0 [facility] Comment on above: Performed By: #### C ALEX ####[facility] Xnqyzardcd4041 [place] [id number]. Amina Escobar MPV 9.7 fL Normal 9.5-13.5 The [facility] Comment on above: Performed By: #### C ALEX ####[facility] Ioukhnchik[address] [place], [place] [address]Dr. Amina Escobar MYELOCYTE # Normal The [facility] Comment on above: Performed By: #### C ALEX ####[facility] Fvpkffrcvk7[address] [place], [place] [address]Dr. Amina Escobar MYELOCYTE % Normal The [facility] Comment on above: Performed By: #### C ALEX ####[facility] Nzhkzrfdoa7121 [place], [place] [address]Cv. Amina Escobar NRBC Normal [facility] Comment on above: Performed By: #### C ALEX ####[facility] Eolkkvcbrw9499 [place], [place] [address]Gy. Amina Escobar PLT 236 103/ul Normal 150-450 [facility] Comment on above: Performed By: #### C ALEX ####[facility] Dehoeauaxh6985 [place] [id number]. Amina Escobar RBC 2.78 106/ul Critically low 4.70-6.10 [facility] Comment on above: Performed By: #### C ALEX ####[facility] Acdgaitsvx3167 [place] [id number]. Amina Escobar RDW 19.4 % Critically high 11.0-15.0 [facility] Comment on above: Performed By: #### Florence JOHNSON ####[facility] Aiscmemena3880 [place] [phone]. Amina Escobar SEG # 6.31 103/ul Normal 1.40-6.50 [facility] Comment on above: Performed By: #### Florence JOHNSON ####[facility] Pnvonlgdve4340 [place] [address]Dr. Amina Escobar SEG % 82.0 % Critically high 43.0-75.0 The [facility] Comment on above: Performed By: #### Florence JOHNSON ####[facility] Gfyixmcamj9037 [place] [phone]. Amina Escobar WBC 7.7 103/ul Normal 4.0-11.0 [facility] Comment on above: Performed By: #### Florence JOHNSON ####[facility] Vmyuzflimz0854 [place] [phone]. Amina Escobar IRONon 05-06-2022 Iron [Mass/Vol] 27.0 ug/dL Critically low 65.0-175.0 [facility] Comment on above: Performed By: #### Mary VILLARREAL ####[facility] Pvcleagfcm2211 [place] [phone]. Amina Shawn CBC AUTO DIFFon 04-29-2022 BASO # 0.0 103/ul Normal 0.0-0.1 The [facility] Comment on above: Performed By: #### C BC ####[facility] Jxyrwabvyz92[address] [place], [place] [address]Dr. Kandielda Escobar Basophils/100 WBC (Bld) 0.5 % Normal 0.2-2.0 The [facility] Comment on above: Performed By: #### C BC ####[facility] Hvoftypxpb[address] [place], [place] [address]Dr. Amina Escobar EO # 0.3 103/ul Normal 0.0-0.7 The [facility] Comment on above: Performed By: #### C BC ####[facility] Dnqkypuipb98[address] [place], [place] [address]Dr. Amina Escobar Eosinophils/100 WBC (Bld) 3.6 % Normal 0.9-7.0 The [facility] Comment on above: Performed By: #### C BC ####[facility] Cgburggymg220[address] [place], [place] [address]Dr. Kandielda Escobar Erythrocyte distribution width (RBC) [Ratio] 20.5 % Critically high 11.0-15.0 The [facility] Comment on above: Performed By: #### C BC ####[facility] Gneikgmnqp823[address] [place], [place] [address]Dr. Amina Escobar Hematocrit (Bld) [Volume fraction] 30.0 % Critically low 42.0-54.0 The [facility] Comment on above: Performed By: #### C BC ####[facility] Sxdzisyjmq[address] [place], [place] [address]Dr. Amina Escobar Hemoglobin (Bld) [Mass/Vol] 9.3 g/dL Critically low 14.0-18.0 The [facility] Comment on above: Performed By: #### C BC ####[facility] Ehqyabbqec55[address] [place], [place] [address]Dr. Amina Escobar IG # 0.04 10e3/ul Critically high 0.00-0.03 The [facility] Comment on above: Performed By: #### C BC ####[facility] Urlikqdrum[address] [place] [address]Dr. Amina Shawn IG % 0.5 % Normal 0.0-0.5 [facility] Comment on above: Performed By: #### C BC ####[facility] Zfqjpmfphz4258 [place] [address]Dr. Amina Escobar LYMPH # 0.6 103/ul Critically low 1.2-3.8 [facility] Comment on above: Performed By: #### C BC ####[facility] Hrqevwlwpc7829 [place] [address]Dr. Amina Shawn Lymphocytes/100 WBC (Bld) 7.6 % Critically low 20.5-60.0 [facility] Comment on above: Performed By: #### C BC ####[facility] Xmgjamrbep[address] [place], [place] [address]Dr. Amina Escobar MANUAL DIFF REQ NO Normal [facility] Comment on above: Performed By: #### C BC ####[facility] Todapmymqw34[address] [place], [place] [address]Dr. Amina Shawn MCH (RBC) [Entitic mass] 29.0 pg Normal 25.9-34.0 [facility] Comment on above: Performed By: #### C BC ####[facility] Gjpipeyhid70[address] [place] [address]Dr. Amina Shawn MCHC (RBC) [Mass/Vol] 31.0 g/dL Normal 29.9-35.2 [facility] Comment on above: Performed By: #### C BC ####[facility] Fpkfwdmisy9049 [place] [address]Dr. Amina Shawn MCV (RBC) [Entitic vol] 93.5 fL Normal 80.0-94.0 [facility] Comment on above: Performed By: #### C BC ####[facility] Cilqmycfwl[address] [place], [place] [address]Dr. Amina Escobar MONO # 0.7 103/ul Normal 0.3-0.8 [facility] Comment on above: Performed By: #### C BC ####[facility] Wsoozulkga5890 [place] [phone]. Amina Escobar Monocytes/100 WBC (Bld) 7.9 % Normal 1.7-12.0 [facility] Comment on above: Performed By: #### C BC ####[facility] Afhycssojc9708 [place] [id number]. Amina Escobar NEUT # 6.8 103/ul Critically high 1.4-6.5 The [facility] Comment on above: Performed By: #### C BC ####[facility] Rlujurmsvk6614 [place] [address]Dr. Amina Escobar Neutrophils/100 WBC (Bld) 79.9 % Critically high 43.0-75.0 [facility] Comment on above: Performed By: #### C BC ####[facility] Xlauvhjnuv79[address] [place] [address]Dr. Amina Escobar Platelet mean volume (Bld) [Entitic vol] 10.4 fL Normal 9.5-13.5 [facility] Comment on above: Performed By: #### C BC ####[facility] Sjhxgyawtu[address] [place], [place] [address]Dr. Amina Escobar PLT 202 103/ul Normal 150-450 [facility] Comment on above: Performed By: #### C BC ####[facility] Jlittbapgg13[address] [place] [address]Dr. Amina Escobar RBC 3.21 106/ul Critically low 4.70-6.10 [facility] Comment on above: Performed By: #### C BC ####[facility] Zjpmbwfzad33[address] [place] [id number]. Amina Escobar WBC 8.5 103/ul Normal 4.0-11.0 [facility] Comment on above: Performed By: #### C BC ####[facility] Pdkwzjqxgw[address] [place], [place] [address]DrMemo Amina Escobar PROF CHEM 8 (BAS METB)on Anion gap [Moles/Vol] 9.1 mmol/L Normal [facility] Comment on above: Performed By: #### B MP ####[facility] Wuvawazxrr1769 [place] [id number]. Amina Escobar Calcium [Mass/Vol] 8.0 mg/dL Critically low 8.5-10.1 Th e [facility] Comment on above: Performed By: #### B MP ####[facility] Iphebrodmm[address] [place] [address]Dr. Amina Escobar Chloride [Moles/Vol] 113 mmol/L Critically high 98-107 [facility] Comment on above: Performed By: #### B MP ####[facility] Sjlfxwkrev0756 [place] [address]Dr. Amina Escobar CO2 [Moles/Vol] 26.1 mmol/L Normal 21.0-32.0 [facility] Comment on above: Performed By: #### B MP ####[facility] Ljdvjjyvrt[address] [place], [place] [address]Dr. Amina Escobar Creatinine [Mass/Vol] 1.33 mg/dL Critically high 0.70-1.30 [facility] Comment on above: Performed By: #### B MP ####[facility] Nezscpgebs0320[address] [place], [place] [address]Dr. Amina Escobar EGFR-AF MALAWIAN >60 Normal >=60 [facility] Comment on above: Performed By: #### B MP ####[facility] Xfvdejeilj0942 [place] [address]Dr. Amina Shawn EGFR-NON AF MALAWIAN 51 mL/min/1.73m2 Critically low >=60 The [facility] Comment on above: Performed By: #### B MP ####[facility] Ofzvmoxqij[address] [place], [place] [address]Dr. Amina Escobar Glucose [Mass/Vol] 90 mg/dL Normal 74-106 [facility] Comment on above: Performed By: #### B MP ####[facility] Plgusdspva6841 [place] [id number]. Knadielda Escobar Potassium [Moles/Vol] 4.2 mmol/L Normal 3.5-5.1 [facility] Comment on above: Performed By: #### B MP ####[facility] Qufwlsoymi45[address] [place], [place] [address]Dr. Amina Escobar Sodium [Moles/Vol] 144 mmol/L Normal 136-145 [facility] Comment on above: Performed By: #### B MP ####[facility] Xuuyhwvyps[address] [place], [place] [address]Dr. Amina Escobar Urea nitrogen [Mass/Vol] 37.0 mg/dL Critically high 7.0-18.0 [facility] Comment on above: Performed By: #### B MP ####[facility] Ujdkukslba95[address] [place], [place] [address]Dr. Amina Escobar Urea nitrogen/Creatinine [Mass ratio] 27.8 mg/mg Normal The [facility] Comment on above: Performed By: #### B MP ####[facility] Cxzdxvggod29[address] [place], [place] [address]Dr. Amina Escobar PRBC LEUKOREDUCEDon 04-28-20 PRBC LEUKOREDUCED Normal The [facility] Comment on above: Performed By: #### P RBC ####[facility] Fgijbptest29[address] [place], [place] [address]Dr. Amina Escobar PRBC LEUKOREDUCED Cross Match Result Compatible Unit Blood Type O Neg Unit Number [id number] Status Information Transfused Product ID Red Blood Cells Product Code [id number] Normal [facility] Comment on above: Performed By: #### P RBC ####[facility] Hrzppoogit9[address] [place], [place] [address]Dr. Amina Escobar CBC AUTO DIFFon 04-27-2022 BASO # 0.0 103/ul Normal 0.0-0.1 [facility] Comment on above: Performed By: #### C BC ####[facility] Upnpphoxqh405[address] [place], [place] [address]Dr. Amina Escobar Basophils/100 WBC (Bld) 0.4 % Normal 0.2-2.0 [facility] Comment on above: Performed By: #### C BC ####[facility] Lpapbjihbn204[address] [place], [place] [address]Dr. Amina Escobar EO # 0.3 103/ul Normal 0.0-0.7 [facility] Comment on above: Performed By: #### C BC ####[facility] Ljoevuhdhp4135 [place] [address]Dr. Amina Escobar Eosinophils/100 WBC (Bld) 3.1 % Normal 0.9-7.0 [facility] Comment on above: Performed By: #### C BC ####[facility] Cydenbzask9[address] [place], [place] [address]Dr. Amina Escobar Erythrocyte distribution width (RBC) [Ratio] 20.3 % Critically high 11.0-15.0 [facility] Comment on above: Performed By: #### C BC ####[facility] Lddsnrnaia865[address] [place], [place] [address]Dr. Amina Escobar Hematocrit (Bld) [Volume fraction] 26.5 % Critically low 42.0-54.0 The [facility] Comment on above: Performed By: #### C BC ####[facility] Hyhmhqqxim658[address] [place], [place] [address]Dr. Amina Escobar Hemoglobin (Bld) [Mass/Vol] 8.4 g/dL Critically low 14.0-18.0 The [facility] Comment on above: Performed By: #### C BC ####[facility] Smmdiuhbma418697 [address] [place], [place] [address]Dr. Kandielda Shawn IG # 0.05 10e3/ul Critically high 0.00-0.03 The [facility] Comment on above: Performed By: #### C BC ####[facility] Agxiabxuke487[address] [place], [place] [address]Dr. Kandielda Escobar IG % 0.6 % Critically high 0.0-0.5 The [facility] Comment on above: Performed By: #### C BC ####[facility] Iffehlioug9716[address] [place], [place] [address]Dr. Amina Escobar LYMPH # 0.8 103/ul Critically low 1.2-3.8 The [facility] Comment on above: Performed By: #### C BC ####[facility] Kcwrfpzmnu7068[address] [place], [place] [address]Dr. Amina Escobar Lymphocytes/100 WBC (Bld) 9.6 % Critically low 20.5-60.0 The [facility] Comment on above: Performed By: #### C BC ####[facility] Mnefakmgyl0680 [place] [address]DrMemo Escobar MANUAL DIFF REQ NO Normal The [facility] Comment on above: Performed By: #### C BC ####[facility] Lbczojhofs5520 [place] [address]Dr. Amina Escobar MCH (RBC) [Entitic mass] 28.8 pg Normal 25.9-34.0 [facility] Comment on above: Performed By: #### C BC ####[facility] Yfwwxwicyf0424[address] [place], [place] [address]Dr. Amina Escobar MCHC (RBC) [Mass/Vol] 31.7 g/dL Normal 29.9-35.2 [facility] Comment on above: Performed By: #### C BC ####[facility] Ickybbjiba847[address] [place], [place] [address]DrMemo Escobar MCV (RBC) [Entitic vol] 90.8 fL Normal 80.0-94.0 [facility] Comment on above: Performed By: #### C BC ####[facility] Xeybsozsgf21[address] [place], [place] [address]DrMemo Escobar MONO # 0.8 103/ul Normal 0.3-0.8 The [facility] Comment on above: Performed By: #### C BC ####[facility] Tpxrgvzbvi050[address] [place], [place] [address]DrMemo Escobar Monocytes/100 WBC (Bld) 9.4 % Normal 1.7-12.0 The [facility] Comment on above: Performed By: #### C BC ####[facility] Krhyzvbace50[address] [place], [place] [address]DrMemo Escobar NEUT # 6.4 103/ul Normal 1.4-6.5 The [facility] Comment on above: Performed By: #### C BC ####[facility] Pznbjywjbv9999[address] [place], [place] [address]DrMemo Escobar Neutrophils/100 WBC (Bld) 76.9 % Critically high 43.0-75.0 [facility] Comment on above: Performed By: #### C BC ####[facility] Ivfikkqqel8939 [place] [address]Dr. Amina Escobar Platelet mean volume (Bld) [Entitic vol] 10.5 fL Normal 9.5-13.5 [facility] Comment on above: Performed By: #### C BC ####[facility] Bhstkicqce5188 [place] [address]Dr. Amina Escobar PLT 160 103/ul Normal 150-450 [facility] Comment on above: Performed By: #### C BC ####[facility] Xplimrgfhn8144 [place] [address]Dr. Amina Escobar RBC 2.92 106/ul Critically low 4.70-6.10 The [facility] Comment on above: Performed By: #### C BC ####[facility] Zytwcfpmrp79[address] [place], [place] [address]Dr. Amina Escobar WBC 8.3 103/ul Normal 4.0-11.0 [facility] Comment on above: Performed By: #### C BC ####[facility] Topctimpcy0130[address] [place], [place] [address]Dr. Amina Escobar GLYCOHEMOGLOBIN A1Con 2021 ADA RECOMMENDATION SEE BELOW Normal The [facility] Comment on above: Result Comment: ADA RECOMMENDED LIMIT 4.0 - 6.0 ADA THERAPEUTIC TARGET < 7.0 ACTION SUGGESTED > 7.0 Performed By: #### A 1C ####[facility] Sstmdxxscp0264 [place] [address]Dr. Amina Escobar Glucose [Mass/Vol] 111 mg/dL Normal [facility] Comment on above: Performed By: #### A 1C ####[facility] Xtsxmfsmeg7867[address] [place], [place] [address]Dr. Amina Escobar HbA1c (Bld) [Mass fraction] 5.5 % Normal 4.5-6.2 The [facility] Comment on above: Performed By: #### A 1C ####[facility] Tbtillvyfu1412 [place] [address]Dr. Amina Escobar POINT OF CARE GLUCOSEon 04-11 Glucose [Mass/Vol] 195 mg/dL Critically high 74-106 [facility] Comment on above: Performed By: #### P OCGLUC ####[facility] Usifbstrdu2241 [place] [address]Dr. Amina Ecsobar PROF CHEM 8 (BAS METB)on Anion gap [Moles/Vol] 10.0 mmol/L Normal [facility] Comment on above: Performed By: #### B MP ####[facility] Muavinpydo82[address] [place], [place] [address]Dr. Amina Escobar Calcium [Mass/Vol] 7.9 mg/dL Critically low 8.5-10.1 Th [facility] Comment on above: Performed By: #### B MP ####[facility] Vzkwxowmog[address] [place], [place] [address]Dr. Amina Escobar Chloride [Moles/Vol] 116 mmol/L Critically high 98-107 [facility] Comment on above: Performed By: #### B MP ####[facility] Mjoiovleuf733[address] [place], [place] [address]Dr. Amina Escobar CO2 [Moles/Vol] 23.1 mmol/L Normal 21.0-32.0 [facility] Comment on above: Performed By: #### B MP ####[facility] Rbjzykwmoy[address] [place], [place] [address]Dr. Amina Escobar Creatinine [Mass/Vol] 1.18 mg/dL Normal 0.70-1.30 [facility] Comment on above: Performed By: #### B MP ####[facility] Sslrhcwwqc3824[address] [place], [place] [address]Dr. Amina Escobar EGFR-AF MALAWIAN >60 Normal >=60 [facility] Comment on above: Performed By: #### B MP ####[facility] Syeopwcdep64[address] [place], [place] [address]Dr. Amina Escobar EGFR-NON AF MALAWIAN 59 mL/min/1.73m2 Critically low >=60 [facility] Comment on above: Performed By: #### B MP ####[facility] Slueitodmu5404 [place] [address]Dr. Amina Escobar Glucose [Mass/Vol] 100 mg/dL Normal 74-106 The [facility] Comment on above: Performed By: #### B MP ####[facility] Otvhtpaiwf[address] [place], [place] [address]Dr. Kandielda Escobar Potassium [Moles/Vol] 4.1 mmol/L Normal 3.5-5.1 The [facility] Comment on above: Performed By: #### B MP ####[facility] Ztahgruojs[address] [place], [place] [address]Dr. Kandielda Escobar Sodium [Moles/Vol] 145 mmol/L Normal 136-145 The [facility] Comment on above: Performed By: #### B MP ####[facility] Wnjnibjvnv89[address] [place], [place] [address]Dr. Amina Escobar Urea nitrogen [Mass/Vol] 40.0 mg/dL Critically high 7.0-18.0 The [facility] Comment on above: Performed By: #### B MP ####[facility] Xhktwghktz18[address] [place], [place] [address]Dr. Amina Escobar Urea nitrogen/Creatinine [Mass ratio] 33.9 mg/mg Normal The [facility] Comment on above: Performed By: #### B MP ####[facility] Gjleqyaaiq[address] [place], [place] [address]Dr. Amina Escboar CBC AUTO DIFFon 04-26-2022 BASO # 0.1 103/ul Normal 0.0-0.1 The [facility] Comment on above: Performed By: #### C BC ####[facility] Hutlsufoac348[address] [place], [place] [address]Dr. Amina Escobar Basophils/100 WBC (Bld) 0.6 % Normal 0.2-2.0 The [facility] Comment on above: Performed By: #### C BC ####[facility] Vcpkfgxkbs469[address] [place], [place] [address]Dr. Amina Escobar EO # 0.2 103/ul Normal 0.0-0.7 The [facility] Comment on above: Performed By: #### C BC ####[facility] [address]vksbvm[address] [place] [address]Dr. Amina Escobar Eosinophils/100 WBC (Bld) 2.1 % Normal 0.9-7.0 The [facility] Comment on above: Performed By: #### C BC ####[facility] Tmvjwtafru[address] [place] [address]Dr. Amina Escobar Erythrocyte distribution width (RBC) [Ratio] 18.6 % Critically high 11.0-15.0 [facility] Comment on above: Performed By: #### C BC ####[facility] Rckbgnypsa[address] [place], [place] [address]Dr. Amina Escobar Hematocrit (Bld) [Volume fraction] 23.6 % Critically low 42.0-54.0 [facility] Comment on above: Performed By: #### C BC ####[facility] Grcaoidzqe564[address] [place], [place] [address]Dr. Amina Escobar Hemoglobin (Bld) [Mass/Vol] 7.6 g/dL Critically low 14.0-18.0 [facility] Comment on above: Performed By: #### C BC ####[facility] Pgdnfmagft[address] [place], [place] [address]Dr. Amina Escobar IG # 0.04 10e3/ul Critically high 0.00-0.03 [facility] Comment on above: Performed By: #### C BC ####[facility] Wbzbwehqhz15[address] [place], [place] [address]Dr. Amina Escobar IG % 0.5 % Normal 0.0-0.5 The [facility] Comment on above: Performed By: #### C BC ####[facility] Limrfxvyxb7710[address] [place], [place] [address]Dr. Aimna Escobar LYMPH # 0.8 103/ul Critically low 1.2-3.8 The [facility] Comment on above: Performed By: #### C BC ####[facility] Zyiehcawfx[address] [place], [place] [address]Dr. Amina Escobar Lymphocytes/100 WBC (Bld) 9.2 % Critically low 20.5-60.0 [facility] Comment on above: Performed By: #### C BC ####[facility] Oczyvhkzrw[address] [place] [address]Dr. Amina Escobar MANUAL DIFF REQ NO Normal [facility] Comment on above: Performed By: #### C BC ####[facility] Mjxhubxdix8554 [place] [id number]. Amina Escobar MCH (RBC) [Entitic mass] 29.1 pg Normal 25.9-34.0 [facility] Comment on above: Performed By: #### C BC ####[facility] Ameewwpaag[address] [place] [address]Dr. Amina Escobar MCHC (RBC) [Mass/Vol] 32.2 g/dL Normal 29.9-35.2 [facility] Comment on above: Performed By: #### C BC ####[facility] Pslcujwauf856[address] [place], [place] [address]Dr. Amina Escobar MCV (RBC) [Entitic vol] 90.4 fL Normal 80.0-94.0 [facility] Comment on above: Performed By: #### C BC ####[facility] Oppgebpoay2845[address] [place], [place] [address]Dr. Amina Escobar MONO # 0.8 103/ul Normal 0.3-0.8 [facility] Comment on above: Performed By: #### C BC ####[facility] Vygrvoayto156[address] [place], [place] [address]Dr. Amina Escobar Monocytes/100 WBC (Bld) 9.0 % Normal 1.7-12.0 The [facility] Comment on above: Performed By: #### C BC ####[facility] Bzxevorqll647[address] [place], [place] [address]DrMemo Escobar NEUT # 6.7 103/ul Critically high 1.4-6.5 The [facility] Comment on above: Performed By: #### C BC ####[facility] Fjuhonixcl168[address] [place], [place] [address]Dr. Amina Escobar Neutrophils/100 WBC (Bld) 78.6 % Critically high 43.0-75.0 The [facility] Comment on above: Performed By: #### C BC ####[facility] Mvpsgpebqf17[address] [place] [address]Dr. Amina Escobar Platelet mean volume (Bld) [Entitic vol] 10.4 fL Normal 9.5-13.5 [facility] Comment on above: Performed By: #### C BC ####[facility] Ybwjeeienb7[address] [place] [address]Dr. Amina Escobar PLT 167 103/ul Normal 150-450 The [facility] Comment on above: Performed By: #### C BC ####[facility] Ojynkwruxp145[address] [place], [place] [address]Dr. Amina Escobar RBC 2.61 106/ul Critically low 4.70-6.10 [facility] Comment on above: Performed By: #### C BC ####[facility] Lxowcfwxie299[address] [place], [place] [address]Dr. Amina Escobar WBC 8.5 103/ul Normal 4.0-11.0 [facility] Comment on above: Performed By: #### C BC ####[facility] Jrrnoytiuv7568[address] [place], [place] [address]Dr. Amina Escobar HEMOGLOBIN AND HEMATOCRITon 04-26-2022 Hematocrit (Bld) [Volume fraction] 28.9 % Critically low 42.0-54.0 [facility] Comment on above: Performed By: #### H GBHCT ####[facility] Spdiwxepzt2112[address] [place], [place] [address]Dr. Amina Escobar Hemoglobin (Bld) [Mass/Vol] 9.1 g/dL Critically low 14.0-18.0 [facility] Comment on above: Performed By: #### H GBHCT ####[facility] Ofygrfxhou115[address] [place], [place] [address]Dr. Amina Shawn POINT OF CARE GLUCOSEon 04-11 Glucose [Mass/Vol] 156 mg/dL Critically high 74-106 [facility] Comment on above: Performed By: #### P OCGLUC ####[facility] Oyxjmmhflf6499[address] [place], [place] [address]Dr. Amina Escobar Glucose [Mass/Vol] 182 mg/dL Critically high 74-106 [facility] Comment on above: Performed By: #### P OCGLUC ####[facility] Qzzrygzkfp7[address] [place] [address]Dr. Amina Escobar Glucose [Mass/Vol] 185 mg/dL Critically high 74-106 [facility] Comment on above: Performed By: #### P OCGLUC ####[facility] Vhdpnszijt30[address] [place] [address]Dr. Kandielda Escobar PROF CHEM 8 (BAS METB)on Anion gap [Moles/Vol] 9.4 mmol/L Normal [facility] Comment on above: Performed By: #### B MP ####[facility] Hxdngfwljc75[address] [place] [address]Dr. Kandielda Shawn Calcium [Mass/Vol] 7.8 mg/dL Critically low 8.5-10.1 [facility] Comment on above: Performed By: #### B MP ####[facility] Yadlltvkdc464[address] [place], [place] [address]Dr. Amina Escobar Chloride [Moles/Vol] 113 mmol/L Critically high 98-107 [facility] Comment on above: Performed By: #### B MP ####[facility] Ioajvzahvg887[address] [place], [place] [address]Dr. Amina Shawn CO2 [Moles/Vol] 24.8 mmol/L Normal 21.0-32.0 [facility] Comment on above: Performed By: #### B MP ####[facility] Kwarblrfyv[address] [place] [address]Dr. Kandielda Shawn Creatinine [Mass/Vol] 1.21 mg/dL Normal 0.70-1.30 [facility] Comment on above: Performed By: #### B MP ####[facility] Mgzycsotec838[address] [place], [place] [address]Dr. Kandielda Shawn EGFR-AF MALAWIAN >60 Normal >=60 [facility] Comment on above: Performed By: #### B MP ####[facility] Tbzhagxshd[address] [place], [place] [address]Dr. Kandielda Shawn EGFR-NON AF MALAWIAN 57 mL/min/1.73m2 Critically low >=60 The [facility] Comment on above: Performed By: #### B MP ####[facility] Gjvemffgye398[address] [place], [place] [address]Dr. Amina Escobar Glucose [Mass/Vol] 95 mg/dL Normal 74-106 The [facility] Comment on above: Performed By: #### B MP ####[facility] Atulqbotke7968[address] [place], [place] [address]Dr. Amina Escobar Potassium [Moles/Vol] 4.2 mmol/L Normal 3.5-5.1 The [facility] Comment on above: Performed By: #### B MP ####[facility] Czorxddxyc9717[address] [place], [place] [address]Dr. Amina Escobar Sodium [Moles/Vol] 143 mmol/L Normal 136-145 The [facility] Comment on above: Performed By: #### B MP ####[facility] Nfqavbeixl7420[address] [place], [place] [address]Dr. Amina Escobar Urea nitrogen [Mass/Vol] 44.0 mg/dL Critically high 7.0-18.0 The [facility] Comment on above: Performed By: #### B MP ####[facility] Wllrorrfnr[address] [place], [place] [address]Dr. Amina Escobar Urea nitrogen/Creatinine [Mass ratio] 36.4 mg/mg Normal The [facility] Comment on above: Performed By: #### B MP ####[facility] Fdrflfcydw2575[address] [place], [place] [address]Dr. Amina Escobar CBC AUTO DIFFon 04-25-2022 Basophils/100 WBC (Bld) 0.5 % Normal 0.2-2.0 The [facility] Comment on above: Performed By: #### C BC ####[facility] Vxvukueahp145[address] [place], [place] [address]Dr. Amina Escobar EO # 0.1 103/ul Normal 0.0-0.7 The [facility] Comment on above: Performed By: #### C BC ####[facility] Ijbvkucnqj94[address] [place] [address]Dr. Amina Escobar Eosinophils/100 WBC (Bld) 1.1 % Normal 0.9-7.0 The [facility] Comment on above: Performed By: #### C BC ####[facility] Zvcljiovoe334[address] [place], [place] [address]Dr. Amina Escobar Erythrocyte distribution width (RBC) [Ratio] 18.4 % Critically high 11.0-15.0 The [facility] Comment on above: Performed By: #### C BC ####[facility] Vlmqfrqeps[address] [place], [place] [address]Dr. Amina Escobar Hematocrit (Bld) [Volume fraction] 23.6 % Critically low 42.0-54.0 The [facility] Comment on above: Performed By: #### C BC ####[facility] Maknxnjsbw614[address] [place], [place] [address]Dr. Amina Escobar Hemoglobin (Bld) [Mass/Vol] 7.6 g/dL Critically low 14.0-18.0 The [facility] Comment on above: Performed By: #### C BC ####[facility] Shzjzestak44[address] [place], [place] [address]Dr. Amina Escobar IG # 0.03 10e3/ul Normal 0.00-0.03 The [facility] Comment on above: Performed By: #### C BC ####[facility] Yagxbetgol5904[address] [place], [place] [address]Dr. Amina Escobar IG % 0.4 % Normal 0.0-0.5 The [facility] Comment on above: Performed By: #### C BC ####[facility] Swosithoar2334[address] [place], [place] [address]Dr. Amina Escobar LYMPH # 0.8 103/ul Critically low 1.2-3.8 The [facility] Comment on above: Performed By: #### C BC ####[facility] Pvphznrhvr030[address] [place], [place] [address]Dr. Amina Escobar Lymphocytes/100 WBC (Bld) 9.8 % Critically low 20.5-60.0 The [facility] Comment on above: Performed By: #### C BC ####[facility] Nvxvfouolv0[address] [place] [id number]. Amina Shawn MCH (RBC) [Entitic mass] 28.7 pg Normal 25.9-34.0 The [facility] Comment on above: Performed By: #### C BC ####[facility] Ywvqgcgbao9[address] [place] [id number]. Amina Shawn MCHC (RBC) [Mass/Vol] 32.2 g/dL Normal 29.9-35.2 The [facility] Comment on above: Performed By: #### C BC ####[facility] Cpyukntzzj0503 [place] [id number]. Kandielda Escobar MCV (RBC) [Entitic vol] 89.1 fL Normal 80.0-94.0 The [facility] Comment on above: Performed By: #### C BC ####[facility] Mybfravgnp3677[address] [place], [place] [address]Dr. Amina Escobar MONO # 0.7 103/ul Normal 0.3-0.8 The [facility] Comment on above: Performed By: #### C BC ####[facility] Jlwnfwpmal66[address] [place] [address]Dr. Kandielda Escobar Monocytes/100 WBC (Bld) 8.1 % Normal 1.7-12.0 The [facility] Comment on above: Performed By: #### C BC ####[facility] Rqogutofsq818[address] [place], [place] [address]Dr. Amina Escobar NEUT # 6.7 103/ul Critically high 1.4-6.5 The [facility] Comment on above: Performed By: #### C BC ####[facility] Inqfglnrti[address] [place], [place] [address]Dr. Amina Escobar Neutrophils/100 WBC (Bld) 80.1 % Critically high 43.0-75.0 The [facility] Comment on above: Performed By: #### C BC ####[facility] Sgnqknzjar2068[address] [place], [place] [address]Dr. Amina Escobar Platelet mean volume (Bld) [Entitic vol] 10.6 fL Normal 9.5-13.5 The [facility] Comment on above: Performed By: #### C BC ####[facility] Cjnbwmtmcn12[address] [place] [address]Dr. Amina Escobar PLT 183 103/ul Normal 150-450 [facility] Comment on above: Performed By: #### C BC ####[facility] Mggwfgoplt5643 [place] [address]Dr. Amina Escobar RBC 2.65 106/ul Critically low 4.70-6.10 The [facility] Comment on above: Performed By: #### C BC ####[facility] Dmtvaajqcb1751 [place] [address]Dr. Amina Escobar WBC 8.4 103/ul Normal 4.0-11.0 The [facility] Comment on above: Performed By: #### C BC ####[facility] Wxycwktswk943[address] [place], [place] [address]Dr. Amina Escobar CBC W MANUAL DIFFon 04-25-20 22 ATYPICAL LYMPH # Normal The [facility] Comment on above: Performed By: #### C BCMAN ####[facility] Bntwoennub699[address] [place], [place] [address]Dr. Amina Escobar ATYPICAL LYMPH % Normal The [facility] Comment on above: Performed By: #### C BCMAN ####[facility] Imaaydmqam229[address] [place], [place] [address]Dr. Amina Escobar BAND # 0.2 103/ul Normal 0.0-0.3 The [facility] Comment on above: Performed By: #### C BCMAN ####[facility] Jdmfncbmuq49[address] [place], [place] [address]Dr. Amina Escobar BAND % 2 % Normal 0-5 The [facility] Comment on above: Performed By: #### C BCMAN ####[facility] Irzqesotiw0726[address] [place], [place] [address]Dr. Amina Escobar BASOM # 0.00 103/ul Normal 0.00-0.10 The [facility] Comment on above: Performed By: #### C BCMAN ####[facility] Mocaeeetsv2760[address] [place], [place] [address]Dr. Amina Escobar BASOM % 0.0 % Critically low 0.2-2.0 The [facility] Comment on above: Performed By: #### C BCMAN ####[facility] Tvdiisxpjt0064 [place] [address]Dr. Amina Escobar BLAST # Normal [facility] Comment on above: Performed By: #### C BCMAN ####[facility] Chkbrqmqfw4082 [place] [address]Dr. Amina Escobar BLAST % Normal The [facility] Comment on above: Performed By: #### C BCMAN ####[facility] Nppyxdwmjk5[address] [place] [address]Dr. Amina Escobar CORRECTED WBC Normal 4.0-11.0 The [facility] Comment on above: Performed By: #### C BCMAN ####[facility] Mkmfzkwuxk17[address] [place], [place] [address]Dr. Amina Escobar EOS # 0.23 103/ul Normal 0.00-0.70 The [facility] Comment on above: Performed By: #### C BCMAN ####[facility] Ezcxwxbjhi814[address] [place], [place] [address]Dr. Amina Escobar EOS% 3.0 % Normal 0.9-7.0 The [facility] Comment on above: Performed By: #### C BCMAN ####[facility] Heawlohamt[address] [place], [place] [address]Dr. Amina Escobar HCT 22.4 % Critically low 42.0-54.0 The [facility] Comment on above: Performed By: #### C BCMAN ####[facility] Vvjybrdfhb65[address] [place], [place] [address]Dr. Amina Escobar HGB 7.2 g/dl Critically low 14.0-18.0 The [facility] Comment on above: Performed By: #### C BCMAN ####[facility] Kbmgkkmbmk827[address] [place], [place] [address]Dr. Amina Escobar LYMPHM # 0.70 103/ul Critically low 1.20-3.80 The [facility] Comment on above: Performed By: #### C BCMAN ####[facility] Rebzydvsyo59[address] [place] [id number]. Amina Escobar LYMPHM% 9.0 % Critically low 20.5-60.0 The [facility] Comment on above: Performed By: #### C ALEX ####[facility] Xejdeluhks8158 [place] [id number]. Amina Escobar MCH 28.9 pg Normal 25.9-34.0 The [facility] Comment on above: Performed By: #### C ALEX ####[facility] Jsvmxnllej0224 [place] [address]Dr. Amina Escobar MCHC 32.1 g/dl Normal 29.9-35.2 The [facility] Comment on above: Performed By: #### C ALEX ####[facility] Etbriaerzp460[address] [place], [place] [address]Dr. Amina Escobar MCV 90.0 fL Normal 80.0-94.0 The [facility] Comment on above: Performed By: #### C ALEX ####[facility] Zenuwajory[address] [place], [place] [address]Dr. Amina Escobar METAMYELOCYTE # Normal The [facility] Comment on above: Performed By: #### C ALEX ####[facility] Ijbjiaxjum512[address] [place], [place] [address]Dr. Amina Escobar METAMYELOCYTE % Normal The [facility] Comment on above: Performed By: #### C ALEX ####[facility] Qamkovroeu[address] [place], [place] [address]Dr. Amina Escobar MONOM# 0.39 103/ul Normal 0.30-0.80 The [facility] Comment on above: Performed By: #### C ALEX ####[facility] Mecbkfqnib[address] [place], [place] [address]Dr. Amina Escobar MONOM% 5.0 % Normal 1.7-12.0 The [facility] Comment on above: Performed By: #### C ALEX ####[facility] Edvwulplnr125[address] [place], [place] [address]Dr. Amina Escobar MPV 10.9 fL Normal 9.5-13.5 The [facility] Comment on above: Performed By: #### C ALEX ####[facility] Wrphnyumuo8338 [place] [id number]. Amina Escobar MYELOCYTE # 0.2 103/ul Normal The [facility] Comment on above: Performed By: #### C ALEX ####[facility] Jngmkfhreg6436 [place] [id number]. Amina Escobar MYELOCYTE % 2 % Normal The [facility] Comment on above: Performed By: #### C ALEX ####[facility] Naxkmomlhe9351 [place] [id number]. Amina Escobar NRBC Normal The [facility] Comment on above: Performed By: #### C ALEX ####[facility] Rhbnlpfacl77[address] [place], [place] [address]Dr. Amina Escobar OVALOCYTES 1+ Normal The [facility] Comment on above: Performed By: #### C ALEX ####[facility] Dfjqbivjxu[address] [place], [place] [address]Dr. Amina Escobar PLT 163 103/ul Normal 150-450 The [facility] Comment on above: Performed By: #### C ALEX ####[facility] Thyeqdgvlt0327 [place] [id number]. Amina Escobar RBC 2.49 106/ul Critically low 4.70-6.10 [facility] Comment on above: Performed By: #### C ALEX ####[facility] Zomjifeakx5157 [place] [address]Dr. Amina Escobar RDW 18.4 % Critically high 11.0-15.0 The [facility] Comment on above: Performed By: #### C ALEX ####[facility] Zzjrspwkww2279 [place] [id number]. Amina Escobar SEG # 6.16 103/ul Normal 1.40-6.50 The [facility] Comment on above: Performed By: #### C ALEX ####[facility] Wpglirixzo8416 [place] [id number]. Amina Escobar SEG % 79.0 % Critically high 43.0-75.0 The [facility] Comment on above: Performed By: #### C BCMAN ####[facility] Zmapnwimsa6491 [place] [address]Dr. Amina Escobar WBC 7.8 103/ul Normal 4.0-11.0 [facility] Comment on above: Performed By: #### C BCMAN ####[facility] [address]zstcf[address] [place] [address]Dr. Amina Escobar HEMOGLOBIN AND HEMATOCRITon 04-25-2022 Hematocrit (Bld) [Volume fraction] 27.1 % Critically low 42.0-54.0 [facility] Comment on above: Performed By: #### H GBHCT ####[facility] Fmfdvaffyk[address] [place] [address]Dr. Amina Escobar Hemoglobin (Bld) [Mass/Vol] 8.7 g/dL Critically low 14.0-18.0 [facility] Comment on above: Performed By: #### H GBHCT ####[facility] Mbkemsdohp[address] [place], [place] [address]Dr. Amina Escobar POINT OF CARE GLUCOSEon 04-11 Glucose [Mass/Vol] 124 mg/dL Critically high 74-106 [facility] Comment on above: Performed By: #### P OCGLUC ####[facility] Qexibsoyel30[address] [place], [place] [address]Dr. Amina Shawn Glucose [Mass/Vol] 102 mg/dL Normal 74-106 [facility] Comment on above: Performed By: #### P OCGLUC ####[facility] Tussxjnrnr97[address] [place], [place] [address]Dr. Amina Escobar Glucose [Mass/Vol] 108 mg/dL Critically high 74-106 [facility] Comment on above: Performed By: #### P OCGLUC ####[facility] Vonjnnimfo54[address] [place], [place] [address]Dr. Kandielda Escobar Glucose [Mass/Vol] 120 mg/dL Critically high 74-106 [facility] Comment on above: Performed By: #### P OCGLUC ####[facility] Kraodxanxe[address] [place], [place] [address]Dr. Amina Escobar PROF CHEM 8 (BAS METB)on Anion gap [Moles/Vol] 13.2 mmol/L Normal [facility] Comment on above: Performed By: #### B MP ####[facility] Xyvdtwqsna7[address] [place], [place] [address]Dr. Kandielda Escobar Calcium [Mass/Vol] 8.1 mg/dL Critically low 8.5-10.1 Th e [facility] Comment on above: Performed By: #### B MP ####[facility] Evwpyzegtf060[address] [place], [place] [address]Dr. Amina Escobar Chloride [Moles/Vol] 111 mmol/L Critically high 98-107 [facility] Comment on above: Performed By: #### B MP ####[facility] Msotpxzehn8[address] [place], [place] [address]Dr. Amina Escobar CO2 [Moles/Vol] 26.0 mmol/L Normal 21.0-32.0 [facility] Comment on above: Performed By: #### B MP ####[facility] Yppgmuxmux065[address] [place], [place] [address]Dr. Amina Escobar Creatinine [Mass/Vol] 1.46 mg/dL Critically high 0.70-1.30 [facility] Comment on above: Performed By: #### B MP ####[facility] Ucjqahhizh[address] [place], [place] [address]Dr. Amina Escobar EGFR-AF MALAWIAN 56 mL/min/1.73m2 Critically low >=60 [facility] Comment on above: Performed By: #### B MP ####[facility] Ngfqyiuexv[address] [place], [place] [address]Dr. Amina Escobar EGFR-NON AF MALAWIAN 46 mL/min/1.73m2 Critically low >=60 [facility] Comment on above: Performed By: #### B MP ####[facility] Kujtgxabab9[address] [place], [place] [address]Dr. Amina Escobar Glucose [Mass/Vol] 107 mg/dL Critically high 74-106 [facility] Comment on above: Performed By: #### B MP ####[facility] Jgfwurzxsg[address] [place], [place] [address]Dr. Amina Escobar Potassium [Moles/Vol] 4.2 mmol/L Normal 3.5-5.1 The [facility] Comment on above: Performed By: #### B MP ####[facility] Waelfgqxen[address] [place] [address]Dr. Amina Escobar Sodium [Moles/Vol] 146 mmol/L Critically high 136-145 [facility] Comment on above: Performed By: #### B MP ####[facility] Qhphfexgoa82[address] [place], [place] [address]Dr. Amina Escobar Urea nitrogen [Mass/Vol] 55.0 mg/dL Critically high 7.0-18.0 The [facility] Comment on above: Performed By: #### B MP ####[facility] Jxzadljqtr[address] [place], [place] [address]Dr. Amina Escobar Urea nitrogen/Creatinine [Mass ratio] 37.7 mg/mg Normal The [facility] Comment on above: Performed By: #### B MP ####[facility] Legjhbvedc2516[address] [place], [place] [address]Dr. Kandielda Escobar BNPon 04-24-2022 Natriuretic peptide B (Bld) [Mass/Vol] 2519.0 pg/mL Critically high <=1,800.0 The [facility] Comment on above: Performed By: #### T SH, HSTROPN, CMP, BNP ####[facility] Ruclozzpoq198[address] [place], [place] [address]Dr. Amina Escobar CBC AUTO DIFFon 04-24-2022 BASO # 0.0 103/ul Normal 0.0-0.1 The [facility] Comment on above: Performed By: #### C BC ####[facility] Otmnhmoqfu529[address] [place], [place] [address]Dr. Amina Escobar Basophils/100 WBC (Bld) 0.4 % Normal 0.2-2.0 The [facility] Comment on above: Performed By: #### C BC ####[facility] Vtrziuymgi990[address] [place], [place] [address]Dr. Amina Escobar EO # 0.2 103/ul Normal 0.0-0.7 The [facility] Comment on above: Performed By: #### C BC ####[facility] Ehbbmkkzkr[address] [place] [address]Dr. Amina Escobar Eosinophils/100 WBC (Bld) 1.4 % Normal 0.9-7.0 The [facility] Comment on above: Performed By: #### C BC ####[facility] Egekeyosdr[address] [place], [place] [address]Dr. Amina Escobar Erythrocyte distribution width (RBC) [Ratio] 20.1 % Critically high 11.0-15.0 [facility] Comment on above: Performed By: #### C BC ####[facility] Cciqbrnluq[address] [place], [place] [address]Dr. Amina Escobar Hematocrit (Bld) [Volume fraction] 20.8 % Critically low 42.0-54.0 [facility] Comment on above: Performed By: #### C BC ####[facility] Kqrxgjewck[address] [place], [place] [address]Dr. Amina Escobar Hemoglobin (Bld) [Mass/Vol] 6.5 g/dL Critically low 14.0-18.0 [facility] Comment on above: Performed By: #### C BC ####[facility] Ngzsttmhnj97[address] [place], [place] [address]Dr. Amina Escobar IG # 0.08 10e3/ul Critically high 0.00-0.03 The [facility] Comment on above: Performed By: #### C BC ####[facility] Fgiqalsveb9[address] [place], [place] [address]Dr. Amina Escobar IG % 0.7 % Critically high 0.0-0.5 The [facility] Comment on above: Performed By: #### C BC ####[facility] Kgwvjtfbeu75[address] [place], [place] [address]DrMemo Amina Escobar LYMPH # 0.7 103/ul Critically low 1.2-3.8 The [facility] Comment on above: Performed By: #### C BC ####[facility] Ozfyywjsfy858[address] [place], [place] [address]Dr. Amina Shawn Lymphocytes/100 WBC (Bld) 6.4 % Critically low 20.5-60.0 [facility] Comment on above: Performed By: #### C BC ####[facility] Scps[address]hvvg[address] [place] [address]DrMemo Escobar MANUAL DIFF REQ NO Normal The [facility] Comment on above: Performed By: #### C BC ####[facility] Jlksenkwby[address] [place] [address]Dr. Amina Escobar MCH (RBC) [Entitic mass] 28.5 pg Normal 25.9-34.0 [facility] Comment on above: Performed By: #### C BC ####[facility] Tlwflczmlv[address] [place], [place] [address]DrMemo Escobar MCHC (RBC) [Mass/Vol] 31.3 g/dL Normal 29.9-35.2 [facility] Comment on above: Performed By: #### C BC ####[facility] Xypafjbckg764[address] [place], [place] [address]DrMemo Escobar MCV (RBC) [Entitic vol] 91.2 fL Normal 80.0-94.0 [facility] Comment on above: Performed By: #### C BC ####[facility] Tyeotlmxgw[address] [place], [place] [address]DrMemo Escobar MONO # 0.6 103/ul Normal 0.3-0.8 [facility] Comment on above: Performed By: #### C BC ####[facility] Ewbfaqfhib[address] [place], [place] [address]DrMemo Escobar Monocytes/100 WBC (Bld) 5.0 % Normal 1.7-12.0 The [facility] Comment on above: Performed By: #### C BC ####[facility] Mvlhnrlyam[address] [place], [place] [address]DrMemo Escobar NEUT # 9.4 103/ul Critically high 1.4-6.5 The [facility] Comment on above: Performed By: #### C BC ####[facility] Igjtgpkpli[address] [place], [place] [address]DrMemo Escobar Neutrophils/100 WBC (Bld) 86.1 % Critically high 43.0-75.0 [facility] Comment on above: Performed By: #### C BC ####[facility] [address]zhaz[address] [place] [id number]. Amina Escobar Platelet mean volume (Bld) [Entitic vol] 10.8 fL Normal 9.5-13.5 The [facility] Comment on above: Performed By: #### C BC ####[facility] [address] [place] [address]Dr. Amina Escobar PLT 202 103/ul Normal 150-450 The [facility] Comment on above: Performed By: #### C BC ####[facility] Aajvuzllxz[address] [place] [address]Dr. Amina Escobar RBC 2.28 106/ul Critically low 4.70-6.10 The [facility] Comment on above: Performed By: #### C BC ####[facility] Dbzsdgwtmb5[address] [place] [address]Dr. Amina Escobar WBC 10.9 103/ul Normal 4.0-11.0 The [facility] Comment on above: Performed By: #### C BC ####[facility] Byggavnvsj[address] [place] [id number]. Amina Escobar CT CSPINE WO CONon 2 CT CSPINE WO CON Normal The [facility] CT HEAD WO CONon 04-24-2022 CT HEAD WO CON Normal The [facility] CULTURE URINEon 04-24-2022 CULTURE URINE Culture Observations : LIGHT GROWTH OF MIXED SKIN NERISSA. NO POTENTIAL PATHOGENS SEEN. Normal The [facility] Comment on above: Performed By: #### U RCX ####[facility] Hrgcbmyiuh[address] [place], [place] [address]Dr. Amina Escobar Covid-19 PCR ([facility])on 04-11 SARS-CoV-2 (COVID-19) RNA MARSHALL+probe Ql (Unsp spec) Not detected Normal NOT DETECTED The [facility] Comment on above: Result Comment: When diagnostic [...] for this test is supported by the [employer] of [employer] and Human Service's declaration that [...] longer be used). Performed By: #### C MARGO ####[facility] Hccgawqmpk[address] [place], [place] [address]Dr. Amina Escobar ER URINE PROFILEon 2 Bilirubin Ql (U) Negative Normal NEGATIVE The [facility] Comment on above: Performed By: #### DMITRI ROSALES ####[facility] Thbpdmbrbn399[address] [place], [place] [address]Dr. Amina Escobar Clarity (U) CLEAR Normal CLEAR The [facility] Comment on above: Performed By: #### DMITRI ROSALES ####[facility] Jaxquteeyh[address] [place], [place] [address]Dr. Amina Escobar Color (U) LT. YELLOW Normal YELLOW The [facility] Comment on above: Performed By: #### DMITRI ROSALES ####[facility] Zagfxbipxk235[address] [place], [place] [address]Dr. Amina Escobar ERUAHD A micrscopic examina tion will be performed if indicated. Normal The [facility] Comment on above: Performed By: #### DMITRI ROSALES ####[facility] Hjhuutpkil[address] [place], [place] [address]Dr. Amina Escobar Glucose Ql (U) Negative Normal NEGATIVE The [facility] Comment on above: Performed By: #### DMITRI ROSALES ####[facility] Mglswkbwrt[address] [place], [place] [address]Dr. Amina Escobar Hemoglobin Ql (U) Negative Normal NEGATIVE The [facility] Comment on above: Performed By: #### Noa HIGGINS UMICRO ####[facility] Vkbyugdupe[address] [place], [place] [address]Dr. Amina Escobar Ketones Ql (U) Negative Normal NEGATIVE The [facility] Comment on above: Performed By: #### Noa HIGGINS UMICRO ####[facility] Dfbdolttug[address] [place], [place] [address]Dr. Amina Escobar LEUKOCYTES TRACE Abnormal NEGATIVE The [facility] Comment on above: Performed By: #### Noa HIGGINS UMICRO ####[facility] Egqzkugcpa[address] [place], [place] [address]Dr. Amina Escobar Nitrite Ql (U) Negative Normal NEGATIVE The [facility] Comment on above: Performed By: #### Noa HIGGINS UMICRO ####[facility] Wminnwoxfu246[address] [place], [place] [address]Dr. Amina Escobar pH (U) 5.5 [pH] Normal 5-9 The [facility] Comment on above: Performed By: #### Noa HIGGINS ICRO ####[facility] Dcdjddemkd[address] [place], [place] [address]Dr. Amina Escobar SPEC GRAVITY 1.015 Normal 1.005-<=1. 025 The [facility] Comment on above: Performed By: #### Noa HIGGINS UMICRO ####[facility] Lyuaezumqv8[address] [place], [place] [address]Dr. Amina Escobar UA PROTEIN Negative Normal NEGATIVE/ TRACE The [facility] Comment on above: Performed By: #### Noa HIGGINS UMICRO ####[facility] Cjyxropaxr[address] [place], [place] [address]Dr. Amina Escobar UR MICRO IND INDICATED Normal The [facility] Comment on above: Performed By: #### Noa HIGGINS UMICRO ####[facility] Ncvepfocye8[address] [place], [place] [address]Dr. Amina Escobar Urobilinogen Qn (U) 0.2 {Mel'U}/dL Normal 0.2 - 1. 0 The [facility] Comment on above: Performed By: #### E NATALYA HIGGINSRO ####[facility] [address]sfrthuo[address] [place] [address]Dr. Amina Escobar IRONon 04-24-2022 Iron [Mass/Vol] 36.0 ug/dL Critically low 65.0-175.0 [facility] Comment on above: Performed By: #### I PHIL ####[facility] [address]taynoibsj[address] [place] [address]Dr. Amina Escobar OCC BLD IMMUNO SCREENon 04-11 OCCULT BLOOD Positive Abnormal NEGATIVE [facility] Comment on above: Performed By: #### O BSCRN ####[facility] Xxhbzqomrq[address] [place] [address]Dr. Amina Escobar PROF 14(COMP METB)on 022 Albumin [Mass/Vol] 3.2 g/dL Critically low 3.4-5.0 [facility] Comment on above: Performed By: #### T SH, HSTROPN, CMP, BNP ####[facility] Kcrzrpslbh64[address] [place] [address]Dr. Amina Escobar Albumin/Globulin [Mass ratio] 1.0 {ratio} Normal [facility] Comment on above: Performed By: #### T SH, HSTROPN, CMP, BNP ####[facility] Rkfgmehgkp[address] [place] [address]Dr. Amina Escobar ALP [Catalytic activity/Vol] 148 U/L Critically high 46-116 [facility] Comment on above: Performed By: #### T SH, HSTROPN, CMP, BNP ####[facility] Xhvaeuojkd[address] [place] [address]Dr. Amina Escobar ALT [Catalytic activity/Vol] 19 U/L Normal 16-63 [facility] Comment on above: Performed By: #### T SH, HSTROPN, CMP, BNP ####[facility] Rnilnvlsaj[address] [place] [address]Dr. Amina Escobar Anion gap [Moles/Vol] 12.0 mmol/L Normal [facility] Comment on above: Performed By: #### T SH, HSTROPN, CMP, BNP ####[facility] Isyweibybn[address] [place] [address]Dr. Amina Escobar AST [Catalytic activity/Vol] 11 U/L Critically low 15-37 [facility] Comment on above: Performed By: #### T SH, HSTROPN, CMP, BNP ####[facility] Mvwpmquuzl[address] [place] [address]Dr. Amina Escobar Bilirubin [Mass/Vol] 0.5 mg/dL Normal 0.2-1.0 [facility] Comment on above: Performed By: #### T SH, HSTROPN, CMP, BNP ####[facility] Gbzmqokbqx[address] [place], [place] [address]Dr. Amina Escobar Calcium [Mass/Vol] 8.1 mg/dL Critically low 8.5-10.1 Th [facility] Comment on above: Performed By: #### T SH, HSTROPN, CMP, BNP ####[facility] Hmktyijyit[address] [place], [place] [address]Dr. Amina Escobar Chloride [Moles/Vol] 110 mmol/L Critically high 98-107 The [facility] Comment on above: Performed By: #### T SH, HSTROPN, CMP, BNP ####[facility] Ubxrvvqoxm[address] [place], [place] [address]Dr. Amina Escobar CO2 [Moles/Vol] 24.0 mmol/L Normal 21.0-32.0 The [facility] Comment on above: Performed By: #### T SH, HSTROPN, CMP, BNP ####[facility] Qnothvfgai80[address] [place], [place] [address]Dr. Amina Escobar Creatinine [Mass/Vol] 1.55 mg/dL Critically high 0.70-1.30 [facility] Comment on above: Performed By: #### T SH, HSTROPN, CMP, BNP ####[facility] Umxtlkjnfv88[address] [place], [place] [address]Dr. Amina Escobar EGFR-AF MALAWIAN 52 mL/min/1.73m2 Critically low >=60 The [facility] Comment on above: Performed By: #### T SH, HSTROPN, CMP, BNP ####[facility] Quxircyljn23[address] [place] [address]Dr. Kandilan Escobar EGFR-NON AF MALAWIAN 43 mL/min/1.73m2 Critically low >=60 The [facility] Comment on above: Performed By: #### T SH, HSTROPN, CMP, BNP ####[facility] Gbjwiymxrl7[address] [place] [address]Dr. Amina Escobar Globulin (S) [Mass/Vol] 3.3 g/dL Normal [facility] Comment on above: Performed By: #### T SH, HSTROPN, CMP, BNP ####[facility] Uxveuqsicn[address] [place], [place] [address]Dr. Amina Escobar Glucose [Mass/Vol] 139 mg/dL Critically high 74-106 [facility] Comment on above: Performed By: #### T SH, HSTROPN, CMP, BNP ####[facility] Pfreodtxik[address] [place], [place] [address]Dr. Amina Escobar Potassium [Moles/Vol] 4.0 mmol/L Normal 3.5-5.1 The [facility] Comment on above: Performed By: #### T SH, HSTROPN, CMP, BNP ####[facility] Lhoqysjrcy[address] [place], [place] [address]Dr. Amina Escobar Protein [Mass/Vol] 6.5 g/dL Normal 6.4-8.2 The [facility] Comment on above: Performed By: #### T SH, HSTROPN, CMP, BNP ####[facility] Swpaicnbti8[address] [place], [place] [address]Dr. Amina Escobar Sodium [Moles/Vol] 142 mmol/L Normal 136-145 The [facility] Comment on above: Performed By: #### T SH, HSTROPN, CMP, BNP ####[facility] [address]yuhwerubc[address] [place] [address]Dr. Amina Escobar Urea nitrogen [Mass/Vol] 58.0 mg/dL Critically high 7.0-18.0 [facility] Comment on above: Performed By: #### T SH, HSTROPN, CMP, BNP ####[facility] Ipoqabjxoj[address] [place] [address]Dr. Amina Escobar Urea nitrogen/Creatinine [Mass ratio] 37.4 mg/mg Normal The [facility] Comment on above: Performed By: #### T SH, HSTROPN, CMP, BNP ####[facility] [address]rhk[address] [place] [address]Dr. Amina Escobar PROTIMEon 04-24-2022 INR Coag (PPP) [Relative time] 2.33 {INR} Normal The [facility] Comment on above: Performed By: #### P T, PTT ####[facility] [address]iryncv[address] [place] [address]Dr. Amina Escobar INR GUIDELINES SEE BELOW Normal The [facility] Comment on above: Result Comment: LIMA RED INR: 2.0 - 3.0 CONDITIONS NOT LISTED BELOW 2.5 - 3.5 FOR PROSTHETIC HEART VALVE REPLACEMENT 2.5 - 3.5 RECURRENT THROMBOSIS Performed By: #### P T, PTT ####[facility] Kmslublqzh[address] [place], [place] [address]Dr. Kandielda Escobar PT Coag (PPP) [Time] 23.8 s Critically high 9.0-11.6 The [facility] Comment on above: Performed By: #### P T, PTT ####[facility] Slmkwybfsc[address] [place] [address]Dr. Amina Escobar PTTon 04-24-2022 aPTT Coag (Bld) [Time] 37.6 s Critically high 22.3-36.2 The [facility] Comment on above: Performed By: #### P T, PTT ####[facility] Gtdakhuzwu[address] [place], [place] [address]Dr. Amina Escobar TROPONIN, HIGH SENSITIVITYon 04-24-2022 HSTROP 19.5 pg/mL Normal 4.0-76.1 The [facility] Comment on above: Result Comment: CUT- OFF POINTS HAVE BEEN ESTABLISHED BASED ON THE FOURTH UNIVERSAL DEFINITIONS OF MYOCARDIALINFARCTION. THE UPPER REFERENCE LIMIT (URL) OF TROPONIN, DEFINED THE 99TH PERCENTILE OFcTnI DISTRIBUTION IN A REFERENCE POPULATION, HAS BEEN CONFIRMED THE DECISION THRESHOLDFOR [place] DIAGNOSIS. Performed By: #### T SH, HSTROPN, CMP, BNP ####[facility] [address]qcbipwxt[address] [place] [address]Dr. Amina Escobar TSHon 04-24-2022 TSH 7.569 uIU/mL Critically high 0.358-3.74 0 The [facility] Comment on above: Performed By: #### T SH, HSTROPN, CMP, BNP ####[facility] Xpgxfziqzz[address] [place] [address]Dr. Amina Escobar TYPE AND SCREENon 04-24-2022 TYPE AND SCREEN Negative Normal [facility] Comment on above: Performed By: #### T NS ####[facility] Radbisspxb[address] [place] [address]Dr. Amina Shawn URINE MICROSCOPIC ONLYon BACTERIA TRACE Abnormal NONE SEEN [facility] Comment on above: Performed By: #### NATALYA ROSALESRO ####[facility] Bxrdckxuhi[address] [place], [place] [address]Dr. Amina Escobar Bacteria identified Cx Nom (U) INDICATED Normal [facility] Comment on above: Performed By: #### NATALYA ROSALESRO ####[facility] Zrmxlfgrzs[address] [place] [address]Dr. Amina Escobar CAST NONE SEEN Normal NONE SEEN [facility] Comment on above: Performed By: #### NATALYA ROSALESRO ####[facility] Gvqovxmnht[address] [place] [address]Dr. Amina Escobar Crystals LM Nom (Urine sed) NONE SEEN Normal NONE SEEN [facility] Comment on above: Performed By: #### NATALYA ROSALESRO ####[facility] Bmsnjgqycb119[address] [place] [address]Dr. Amina Escobar Epithelial cells LM Ql (Urine sed) RARE Normal NONE SEEN /RARE [facility] Comment on above: Performed By: #### NATALYA ROSALESRO ####[facility] Mxjsjalpfl[address] [place], [place] [address]DrMemo Escobar MUCOUS TRACE Abnormal NONE SEEN [facility] Comment on above: Performed By: #### Noa HIGGINS UMICRO ####[facility] Nadujrtizp[address] [place] [id number] Escobar RBC NONE SEEN Abnormal 0-2 [facility] Comment on above: Performed By: #### E RONALDO UMICRO ####[facility] Prmmixpyvr20[address] [place] [id number]. Amina Escobar WBC 0-2 Abnormal NONE SEEN [facility] Comment on above: Performed By: #### Noa HIGGINS UMICRO ####[facility] Aktcobjwvq57[address] [place] [id number] Escobar XR CHEST 1 Von 04-24-2022 XR CHEST 1 V Normal [facility] XR PELVIS 1_2 VIEWSon 2021 XR PELVIS 1_2 VIEWS Normal [facility] HEMOGRAM AND PLATELon 2021 Hematocrit (Bld) [Volume fraction] 37.9 % Critically low 42.0-54.0 [facility] Comment on above: Performed By: #### H H ####[facility] Mxuhwoguuh[address] [place] [address]DrMemo Escobar Hemoglobin (Bld) [Mass/Vol] 11.6 g/dL Critically low 14.0-18.0 [facility] Comment on above: Performed By: #### H H ####[facility] Yqcuuqasub7[address] [place] [address]DrMemo Escobar MCH (RBC) [Entitic mass] 27.1 pg Normal 25.9-34.0 [facility] Comment on above: Performed By: #### H H ####[facility] Wceuekoxli8[address] [place] [id number] Escobar MCHC (RBC) [Mass/Vol] 30.6 g/dL Normal 29.9-35.2 [facility] Comment on above: Performed By: #### H H ####[facility] Hjrqqnyscc95[address] [place] [id number] Escobar MCV (RBC) [Entitic vol] 88.6 fL Normal 80.0-94.0 [facility] Comment on above: Performed By: #### H H ####[facility] Hfizerfosr[address] [place] [address]Dr. Amina Escobar PLT 165 103/ul Normal 150-450 [facility] Comment on above: Performed By: #### H H ####[facility] Moxmpwgetc833[address] [place], [place] [address]Dr. Amina Escobar RBC 4.28 106/ul Critically low 4.70-6.10 [facility] Comment on above: Performed By: #### H H ####[facility] Opqhofdppk528[address] [place], [place] [address]Dr. Amina Escobar WBC 7.4 103/ul Normal 4.0-11.0 [facility] Comment on above: Performed By: #### H H ####[facility] Zfpetollma[address] [place], [place] [address]DrMemo Amina Shawn IRONon 04-10-2022 Iron [Mass/Vol] 66.0 ug/dL Normal 65.0-175.0 [facility] Comment on above: Performed By: #### I PHIL ####[facility] Rnqnzoabfl408[address] [place], [place] [address]DrMemo Amina Shawn CBC AUTO DIFFon 02-16-2022 BASO # 0.1 103/ul Normal 0.0-0.1 [facility] Comment on above: Performed By: #### C BC ####[facility] Rlibosauej49[address] [place], [place] [address]DrMemo Amina Shawn Basophils/100 WBC (Bld) 0.8 % Normal 0.2-2.0 [facility] Comment on above: Performed By: #### C BC ####[facility] Vmyhvhijom[address] [place], [place] [address]DrMemo Escobar EO # 0.2 103/ul Normal 0.0-0.7 [facility] Comment on above: Performed By: #### C BC ####[facility] Ogizzdtuoi488[address] [place], [place] [address]DrMemo Escobar Eosinophils/100 WBC (Bld) 3.2 % Normal 0.9-7.0 [facility] Comment on above: Performed By: #### C BC ####[facility] Ropabszgfl038[address] [place], [place] [address]Dr. Amina Escobar Erythrocyte distribution width (RBC) [Ratio] 17.6 % Critically high 11.0-15.0 [facility] Comment on above: Performed By: #### C BC ####[facility] Wxqhfeomij559[address] [place], [place] [address]Dr. Amina Escobar Hematocrit (Bld) [Volume fraction] 36.5 % Critically low 42.0-54.0 [facility] Comment on above: Performed By: #### C BC ####[facility] Mezucfalzr468[address] [place], [place] [address]Dr. Amina Escobar Hemoglobin (Bld) [Mass/Vol] 11.2 g/dL Critically low 14.0-18.0 [facility] Comment on above: Performed By: #### C BC ####[facility] Ludcjkjvqi536[address] [place], [place] [address]Dr. Amina Escobar IG # 0.02 10e3/ul Normal 0.00-0.03 [facility] Comment on above: Performed By: #### C BC ####[facility] Mnoznyaify315[address] [place], [place] [address]Dr. Amina Escobar IG % 0.3 % Normal 0.0-0.5 [facility] Comment on above: Performed By: #### C BC ####[facility] Yfexumllkz1067[address] [place], [place] [address]Dr. Amina Escobar LYMPH # 0.9 103/ul Critically low 1.2-3.8 [facility] Comment on above: Performed By: #### C BC ####[facility] Kxwpaqhjss9[address] [place], [place] [address]Dr. Amina Escobar Lymphocytes/100 WBC (Bld) 14.2 % Critically low 20.5-60.0 [facility] Comment on above: Performed By: #### C BC ####[facility] Ddnwbxtudt92[address] [place], [place] [address]DrMemo Escobar MANUAL DIFF REQ NO Normal [facility] Comment on above: Performed By: #### C BC ####[facility] Oszrtfanqj[address] [place] [address]DrMemo Escobar MCH (RBC) [Entitic mass] 26.4 pg Normal 25.9-34.0 [facility] Comment on above: Performed By: #### C BC ####[facility] Vqxztmcuzr45[address] [place] [address]DrMemo Escobar MCHC (RBC) [Mass/Vol] 30.7 g/dL Normal 29.9-35.2 [facility] Comment on above: Performed By: #### C BC ####[facility] Vvjabnllsy1136[address] [place], [place] [address]DrMemo Escobar MCV (RBC) [Entitic vol] 86.1 fL Normal 80.0-94.0 [facility] Comment on above: Performed By: #### C BC ####[facility] Ecbihoeqve954[address] [place], [place] [address]DrMemo Escobar MONO # 0.6 103/ul Normal 0.3-0.8 [facility] Comment on above: Performed By: #### C BC ####[facility] Xedsiqoxrw94[address] [place], [place] [address]DrMemo Escobar Monocytes/100 WBC (Bld) 8.7 % Normal 1.7-12.0 [facility] Comment on above: Performed By: #### C BC ####[facility] Scjdufhinr24[address] [place], [place] [address]DrMemo Escobar NEUT # 4.6 103/ul Normal 1.4-6.5 [facility] Comment on above: Performed By: #### C BC ####[facility] Vjdyliffwn[address] [place], [place] [address]DrMemo Escobar Neutrophils/100 WBC (Bld) 72.8 % Normal 43.0-75.0 [facility] Comment on above: Performed By: #### C BC ####[facility] Rriobdbkcm040[address] [place], [place] [address]DrMemo Escobar Platelet mean volume (Bld) [Entitic vol] 11.0 fL Normal 9.5-13.5 [facility] Comment on above: Performed By: #### C BC ####[facility] Mugcmcxurn4465 [place] [id number] Escobar PLT 183 103/ul Normal 150-450 [facility] Comment on above: Performed By: #### C BC ####[facility] Ceeynxhoyu8[address] [place] [address]DrMemo Escobar RBC 4.24 106/ul Critically low 4.70-6.10 [facility] Comment on above: Performed By: #### C BC ####[facility] Gjzxuwuyad960[address] [place], [place] [address]DrMemo Escobar WBC 6.3 103/ul Normal 4.0-11.0 [facility] Comment on above: Performed By: #### C BC ####[facility] Bebwhfcuvj46[address] [place], [place] [address]DrMemo Escobar CULTURE URINEon 02-16-2022 CULTURE URINE Culture Observations : NO GROWTH. Normal [facility] Comment on above: Performed By: #### U RCX ####[facility] Aaxzyqcalo7[address] [place], [place] [address]Dr. Amina Escobar PROF 14(COMP METB)on 022 Albumin [Mass/Vol] 3.5 g/dL Normal 3.4-5.0 [facility] Comment on above: Performed By: #### C MP ####[facility] Mbtfwmkapp[address] [place], [place] [address]DrMemo Escobar Albumin/Globulin [Mass ratio] 1.0 {ratio} Normal [facility] Comment on above: Performed By: #### C MP ####[facility] Rbbolksnji495[address] [place], [place] [address]DrMemo Escobar ALP [Catalytic activity/Vol] 199 U/L Critically high 46-116 [facility] Comment on above: Performed By: #### C MP ####[facility] Sstlvdyfjt[address] [place], [place] [address]Dr. Amina Escobar ALT [Catalytic activity/Vol] 17 U/L Normal 16-63 [facility] Comment on above: Performed By: #### C MP ####[facility] Drwbwyzknd[address] [place] [id number]. Amina Shawn Anion gap [Moles/Vol] 13.3 mmol/L Normal [facility] Comment on above: Performed By: #### C MP ####[facility] Wtvsmyxpyk4018 [place] [id number]. Amina Shawn AST [Catalytic activity/Vol] 10 U/L Critically low 15-37 [facility] Comment on above: Performed By: #### C MP ####[facility] Hurybzjunf[address] [place], [place] [address]Dr. Amina Escobar Bilirubin [Mass/Vol] 0.4 mg/dL Normal 0.2-1.0 [facility] Comment on above: Performed By: #### C MP ####[facility] Wzurcyyavx64[address] [place], [place] [address]Dr. Amina Escobar Calcium [Mass/Vol] 8.5 mg/dL Normal 8.5-10.1 [facility] Comment on above: Performed By: #### C MP ####[facility] Lldmrxaqpf33[address] [place], [place] [address]Dr. Amina Escobar Chloride [Moles/Vol] 110 mmol/L Critically high 98-107 [facility] Comment on above: Performed By: #### C MP ####[facility] Yruagxxznl223[address] [place], [place] [address]Dr. Amina Escobar CO2 [Moles/Vol] 26.0 mmol/L Normal 21.0-32.0 [facility] Comment on above: Performed By: #### C MP ####[facility] Vpnmnumgwf94[address] [place], [place] [address]Dr. Amina Escobar Creatinine [Mass/Vol] 1.35 mg/dL Critically high 0.70-1.30 [facility] Comment on above: Performed By: #### C MP ####[facility] Cxwexdjeid425[address] [place], [place] [address]Dr. Amina Escobar EGFR-AF MALAWIAN >60 Normal >=60 [facility] Comment on above: Performed By: #### C MP ####[facility] Ncqeymxsdi5538 [place] [id number]. Amina Escobar EGFR-NON AF MALAWIAN 50 mL/min/1.73m2 Critically low >=60 [facility] Comment on above: Performed By: #### C MP ####[facility] Rwltkghwbq3501 [place] [id number]. Amina Escobar Globulin (S) [Mass/Vol] 3.6 g/dL Normal [facility] Comment on above: Performed By: #### C MP ####[facility] Zljppgvsjw9704 [place] [address]Dr. Amina Escobar Glucose [Mass/Vol] 109 mg/dL Critically high 74-106 [facility] Comment on above: Performed By: #### C MP ####[facility] Smqnechbhj7625 [place] [address]Dr. Amina Escobar Potassium [Moles/Vol] 4.3 mmol/L Normal 3.5-5.1 [facility] Comment on above: Performed By: #### C MP ####[facility] Givsfdgujb[address] [place], [place] [address]Dr. Amina Escobar Protein [Mass/Vol] 7.1 g/dL Normal 6.4-8.2 [facility] Comment on above: Performed By: #### C MP ####[facility] Pwunopqjoj[address] [place] [address]Dr. Amina Escobar Sodium [Moles/Vol] 145 mmol/L Normal 136-145 [facility] Comment on above: Performed By: #### C MP ####[facility] Irvslpwtuf2636 [place] [phone]. Amina Escobar Urea nitrogen [Mass/Vol] 34.0 mg/dL Critically high 7.0-18.0 [facility] Comment on above: Performed By: #### C MP ####[facility] Xfkukfllwy6395 [place] [phone]. Amina Shawn Urea nitrogen/Creatinine [Mass ratio] 25.2 mg/mg Normal [facility] Comment on above: Performed By: #### C MP ####[facility] Gasbchkata[address] [place], [place] [address]Dr. Amina Escobar UA (CLEAN/CATCH) MICROSCOPIC IF INDICATEon 02-16-2022 Bilirubin Ql (U) Negative Normal NEGATIVE [facility] Comment on above: Performed By: #### U ARMICR ####[facility] Eljkpbdwud[address] [place], [place] [address]Dr. Amina Escobar Clarity (U) CLEAR Normal CLEAR [facility] Comment on above: Performed By: #### U ARMICR ####[facility] Lfadnmebop410[address] [place], [place] [address]Dr. Amina Escobar Color (U) YELLOW Normal YELLOW [facility] Comment on above: Performed By: #### U ARMICR ####[facility] Oktiacewml211[address] [place], [place] [address]Dr. Amina Escobar Glucose Ql (U) Negative Normal NEGATIVE [facility] Comment on above: Performed By: #### U ARMICR ####[facility] Vvgbxbmvfg8[address] [place], [place] [address]Dr. Amina Escobar Hemoglobin Ql (U) Negative Normal NEGATIVE [facility] Comment on above: Performed By: #### U ARMICR ####[facility] Wjjwfctffw4110[address] [place], [place] [address]Dr. Amina Escobar Ketones Ql (U) Negative Normal NEGATIVE [facility] Comment on above: Performed By: #### U ARMICR ####[facility] Ovzvifenas[address] [place], [place] [address]Dr. Amina Escobar LEUKOCYTES Negative Normal NEGATIVE [facility] Comment on above: Performed By: #### U ARMICR ####[facility] Oyzpthgaym499[address] [place], [place] [address]Dr. Amina Escobar Nitrite Ql (U) Negative Normal NEGATIVE [facility] Comment on above: Performed By: #### U ARMICR ####[facility] Usggodvbmc7040[address] [place], [place] [address]Dr. Amina Escobar pH (U) 5.5 [pH] Normal 5-9 [facility] Comment on above: Performed By: #### U ARMICR ####[facility] Tilqtdjdra[address] [place] [address]Dr. Amina Escobar SPEC GRAVITY 1.025 Normal 1.005-<=1. 025 [facility] Comment on above: Performed By: #### U ARMICR ####[facility] Audmlkmvmc59[address] [place], [place] [address]Dr. Amina Escobar UA PROTEIN Negative Normal NEGATIVE/ TRACE [facility] Comment on above: Performed By: #### U ARMICR ####[facility] Bvdghqdbyf875[address] [place], [place] [address]Dr. Amina Escobar UR MICRO IND MICROSCOPIC ALREADY ORDERED Normal [facility] Comment on above: Performed By: #### U ARMICR ####[facility] Dfbrhqkbhc410[address] [place], [place] [address]Dr. Amina Escobar Urobilinogen Qn (U) 0.2 {Mel'U}/dL Normal 0.2 - 1. 0 [facility] Comment on above: Performed By: #### U ARMICR ####[facility] Cbyyihnnmz220[address] [place], [place] [address]Dr. Amina Escobar ECHOCARDIO M/2D COMPLETEon 0 02-11-2022 ECHOCARDIO M/2D COMPLETE Normal [facility] CBC AUTO DIFFon 01-06-2022 BASO # 0.0 103/ul Normal 0.0-0.1 [facility] Comment on above: Performed By: #### C BC ####[facility] Xduaqxsqsi848[address] [place], [place] [address]Dr. Amina Escobar Basophils/100 WBC (Bld) 0.7 % Normal 0.2-2.0 [facility] Comment on above: Performed By: #### C BC ####[facility] Hshbmzcmwp9[address] [place], [place] [address]Dr. Amina Escobar EO # 0.3 103/ul Normal 0.0-0.7 [facility] Comment on above: Performed By: #### C BC ####[facility] Jxjanivxhk44[address] [place] [address]Dr. Amina Escobar Eosinophils/100 WBC (Bld) 5.4 % Normal 0.9-7.0 [facility] Comment on above: Performed By: #### C BC ####[facility] Axufssnxwg425[address] [place], [place] [address]Dr. Amina Escobar Erythrocyte distribution width (RBC) [Ratio] 18.2 % Critically high 11.0-15.0 [facility] Comment on above: Performed By: #### C BC ####[facility] Kemlzjajsj337[address] [place], [place] [address]Dr. Amina Escobar Hematocrit (Bld) [Volume fraction] 35.6 % Critically low 42.0-54.0 [facility] Comment on above: Performed By: #### C BC ####[facility] Rolqfkmnrq59[address] [place], [place] [address]Dr. Amina Escobar Hemoglobin (Bld) [Mass/Vol] 10.9 g/dL Critically low 14.0-18.0 [facility] Comment on above: Performed By: #### C BC ####[facility] Hdwyaoztol44[address] [place], [place] [address]Dr. Amina Escobar IG # 0.02 10e3/ul Normal 0.00-0.03 [facility] Comment on above: Performed By: #### C BC ####[facility] Nnqeijknrd39[address] [place], [place] [address]Dr. Amina Escobar IG % 0.4 % Normal 0.0-0.5 [facility] Comment on above: Performed By: #### C BC ####[facility] Ukdqremjtu10[address] [place], [place] [address]Dr. Amina Escobar LYMPH # 0.8 103/ul Critically low 1.2-3.8 [facility] Comment on above: Performed By: #### C BC ####[facility] Oyfgckwjel[address] [place], [place] [address]Dr. Amina Escobar Lymphocytes/100 WBC (Bld) 13.4 % Critically low 20.5-60.0 [facility] Comment on above: Performed By: #### C BC ####[facility] Cpibprpayw[address] [place] [id number]. Amina Escobar MANUAL DIFF REQ NO Normal [facility] Comment on above: Performed By: #### C BC ####[facility] Tjtsrimphi9277 [place] [id number]. Amina Escobar MCH (RBC) [Entitic mass] 26.6 pg Normal 25.9-34.0 [facility] Comment on above: Performed By: #### C BC ####[facility] Jsnegjjrvg5424 [place] [address]Dr. Amina Escobar MCHC (RBC) [Mass/Vol] 30.6 g/dL Normal 29.9-35.2 [facility] Comment on above: Performed By: #### C BC ####[facility] Bqfnotzqcs44[address] [place] [address]Dr. Amina Shawn MCV (RBC) [Entitic vol] 86.8 fL Normal 80.0-94.0 [facility] Comment on above: Performed By: #### C BC ####[facility] [place] N[address]tr[address] [place], [place] [address]Dr. Amina Shawn MONO # 0.6 103/ul Normal 0.3-0.8 [facility] Comment on above: Performed By: #### C BC ####[facility] Gnjrmuzpag[address] [place], [place] [address]Dr. Kandielda Escobar Monocytes/100 WBC (Bld) 10.4 % Normal 1.7-12.0 [facility] Comment on above: Performed By: #### C BC ####[facility] Txxpjlsnbk[address] [place], [place] [address]Dr. Amina Escobar NEUT # 3.9 103/ul Normal 1.4-6.5 [facility] Comment on above: Performed By: #### C BC ####[facility] Nij[address] [place], [place] [address]Dr. Kandielda Escobar Neutrophils/100 WBC (Bld) 69.7 % Normal 43.0-75.0 [facility] Comment on above: Performed By: #### C BC ####[facility] [address] [place] [address]Dr. Amina Escobar Platelet mean volume (Bld) [Entitic vol] 10.6 fL Normal 9.5-13.5 [facility] Comment on above: Performed By: #### C BC ####[facility] [address]ep[address] [place] [id number]. Amina Escobar PLT 180 103/ul Normal 150-450 [facility] Comment on above: Performed By: #### C BC ####[facility] Kbekpaabso[address] [place], [place] [address]Dr. Amina Escobar RBC 4.10 106/ul Critically low 4.70-6.10 [facility] Comment on above: Performed By: #### C BC ####[facility] Fhshbwiknk[address] [place], [place] [address]Dr. Amina Escobar WBC 5.6 103/ul Normal 4.0-11.0 [facility] Comment on above: Performed By: #### C BC ####[facility] Xbcooavknw[address] [place], [place] [address]Dr. Amina Escobar IRONon 01-06-2022 Iron [Mass/Vol] 42.0 ug/dL Critically low 65.0-175.0 [facility] Comment on above: Performed By: #### I PHIL ####[facility] Qsrqoqechi[address] [place], [place] [address]Dr. Amina Escobar CBC AUTO DIFFon 12-23-2021 BASO # 0.1 103/ul Normal 0.0-0.1 [facility] Comment on above: Performed By: #### C BC ####[facility] Ntiymsbuit[address] [place], [place] [address]Dr. Amina Escobar Basophils/100 WBC (Bld) 0.9 % Normal 0.2-2.0 [facility] Comment on above: Performed By: #### C BC ####[facility] Jdzbixrgez[address] [place], [place] [address]Dr. Amina Escobar EO # 0.2 103/ul Normal 0.0-0.7 [facility] Comment on above: Performed By: #### C BC ####[facility] [address]keiqs[address] [place] [id number]. Amina Escobar Eosinophils/100 WBC (Bld) 3.6 % Normal 0.9-7.0 [facility] Comment on above: Performed By: #### C BC ####[facility] Rvqputuous[address] [place] [address]Dr. Amina Escobar Erythrocyte distribution width (RBC) [Ratio] 19.5 % Critically high 11.0-15.0 [facility] Comment on above: Performed By: #### C BC ####[facility] Ensxqjcvom[address] [place], [place] [address]Dr. Amina Escobar Hematocrit (Bld) [Volume fraction] 33.6 % Critically low 42.0-54.0 [facility] Comment on above: Performed By: #### C BC ####[facility] Plzidyhenm[address] [place], [place] [address]Dr. Amina Escobar Hemoglobin (Bld) [Mass/Vol] 10.2 g/dL Critically low 14.0-18.0 [facility] Comment on above: Performed By: #### C BC ####[facility] Ehqujfwgkm[address] [place], [place] [address]Dr. Amina Escboar IG # 0.01 10e3/ul Normal 0.00-0.03 [facility] Comment on above: Performed By: #### C BC ####[facility] Jinjmlcaay[address] [place], [place] [address]Dr. Amina Escobar IG % 0.2 % Normal 0.0-0.5 [facility] Comment on above: Performed By: #### C BC ####[facility] Zhrdrsbcmw[address] [place], [place] [address]Dr. Amina Escobar LYMPH # 0.8 103/ul Critically low 1.2-3.8 [facility] Comment on above: Performed By: #### C BC ####[facility] Mswdbiqycg[address] [place], [place] [address]Dr. Amina Escobar Lymphocytes/100 WBC (Bld) 15.2 % Critically low 20.5-60.0 [facility] Comment on above: Performed By: #### C BC ####[facility] Jp[address]fsabsy[address] [place] [id number]. Amina Escobar MANUAL DIFF REQ NO Normal [facility] Comment on above: Performed By: #### C BC ####[facility] Ioaxvjvviv6[address] [place] [id number]. Amina Escobar MCH (RBC) [Entitic mass] 26.6 pg Normal 25.9-34.0 [facility] Comment on above: Performed By: #### C BC ####[facility] Omxggvzlbn[address] [place], [place] [address]Dr. Amina Escobar MCHC (RBC) [Mass/Vol] 30.4 g/dL Normal 29.9-35.2 [facility] Comment on above: Performed By: #### C BC ####[facility] Xfwdrbzrhr[address] [place], [place] [address]Dr. Kandielda Escobar MCV (RBC) [Entitic vol] 87.7 fL Normal 80.0-94.0 [facility] Comment on above: Performed By: #### C BC ####[facility] Qhkvaniqmi[address] [place], [place] [address]Dr. Amina Escobar MONO # 0.5 103/ul Normal 0.3-0.8 [facility] Comment on above: Performed By: #### C BC ####[facility] Qxksqkqluw[address] [place], [place] [address]Dr. Kandielda Escobar Monocytes/100 WBC (Bld) 10.0 % Normal 1.7-12.0 [facility] Comment on above: Performed By: #### C BC ####[facility] Fakvupbzzs[address] [place], [place] [address]Dr. Kandielda Escobar NEUT # 3.7 103/ul Normal 1.4-6.5 [facility] Comment on above: Performed By: #### C BC ####[facility] Lfyumdbgau[address] [place], [place] [address]Dr. Amina Escobar Neutrophils/100 WBC (Bld) 70.1 % Normal 43.0-75.0 [facility] Comment on above: Performed By: #### C BC ####[facility] [address]prelw[address] [place] [id number]. Amina Escobar Platelet mean volume (Bld) [Entitic vol] 10.2 fL Normal 9.5-13.5 [facility] Comment on above: Performed By: #### C BC ####[facility] Lu[address]qebew[address] [place] [id number]. Amina Escobar PLT 201 103/ul Normal 150-450 [facility] Comment on above: Performed By: #### C BC ####[facility] Nqqshhwkzb8[address] [place] [address]Dr. Amina Escobar RBC 3.83 106/ul Critically low 4.70-6.10 [facility] Comment on above: Performed By: #### C BC ####[facility] Ed[address]wbxarm[address] [place] [phone]. Amina Escobar WBC 5.3 103/ul Normal 4.0-11.0 [facility] Comment on above: Performed By: #### C BC ####[facility] Wo[address]rwqvio[address] [place] [id number]. Amina Escobar IRONon 12-23-2021 Iron [Mass/Vol] 60.0 ug/dL Critically low 65.0-175.0 [facility] Comment on above: Performed By: #### I PHIL ####[facility] Entzltfibq[address] [place], [place] [address]Dr. 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 This test has not been FDA cleared [...] is terminated or revoked sooner. PERFORMED BY: [facility] [address] [place] [address] PATHOLOGIST TOOL MACHINE SHOP SUPERVISOR JAIRO GLYNN M.D. Performed By: #### C OVID 19 [facility] #### [address] CBC COMPLETE BLOOD COUNTon 0 01-01-2021 Erythrocyte distribution width (RBC) [Ratio] 13.7 % Normal 11.5-15.0 [facility] Comment on above: Order Comment: RUL Performed By: #### 3 0323 #### [facility] [address] Hematocrit (Bld) [Volume fraction] 37.9 % Low 39.0-50.0 [facility] Comment on above: Order Comment: RUL Performed By: #### 3 0323 #### [facility] [address] [place] [address], [facility] Hemoglobin (Bld) [Mass/Vol] 12.2 g/dL Low 13.0-17.0 [facility] Comment on above: Order Comment: RUL Performed By: #### 3 0323 #### [facility] [address] [place] [address], [facility] MCH (RBC) [Entitic mass] 28.9 pg Normal 27.0-33.0 [facility] Comment on above: Order Comment: RUL Performed By: #### 3 0323 #### [facility] [address] [facility] [address] MCHC (RBC) [Mass/Vol] 32.2 g/dL Normal 32.0-35.0 [facility] Comment on above: Order Comment: RUL Performed By: #### 3 0323 #### [facility] [address] [place] [address], [facility] MCV (RBC) [Entitic vol] 89.8 fL Normal 82.0-98.0 [facility] Comment on above: Order Comment: RUL Performed By: #### 3 0323 #### [facility] [address] [place] [address], [facility] Nucleated RBC/100 WBC (Bld) [Ratio] 0 % Normal 0-0 [facility] Comment on above: Order Comment: RUL Performed By: #### 3 0323 #### [facility] [address] [place] [address], [facility] PLAT CNT 154 10*3/uL Normal 150-400 [facility] Comment on above: Order Comment: RUL Performed By: #### 3 0323 #### [facility] [address] [facility] [place] [address], [facility] RBC (Bld) [#/Vol] 4.22 10*6/uL Normal 4.20-5.70 [facility] Comment on above: Order Comment: RUL Performed By: #### 3 0323 #### [facility] [address] [place] [address], [facility] WBC (Bld) [#/Vol] 7.48 10*3/uL Normal 4.00-10.60 [facility] Comment on above: Order Comment: RUL Performed By: #### 3 0323 #### [facility] [address] [place] [address], [facility] COMP METABOLIC PANELon 01-01 Albumin [Mass/Vol] 3.5 g/dL Normal 3.5-5.7 [facility] Comment on above: Order Comment: No: D o not add to previous draw Performed By: #### 1 0, 71844 #### [facility] [address] [place] [address], [place] ALKALINE PHOSPH 97 IU/L Normal 34-104 [facility] Comment on above: Order Comment: No: D o not add to previous draw Performed By: #### 1 69, 15360 #### [facility] [address] [place] [address], [place] ALT [Catalytic activity/Vol] 14 U/L Normal 7-52 [facility] Comment on above: Order Comment: No: D o not add to previous draw Performed By: #### 1 69, 64788 #### [facility] [address] [place] [address], [place] AST [Catalytic activity/Vol] 14 U/L Normal 13-39 [facility] Comment on above: Order Comment: No: D o not add to previous draw Performed By: #### 1 69, 49242 #### [facility] [address] [place] [address], [place] Bilirubin [Mass/Vol] 1.0 mg/dL Normal 0.3-1.0 [facility] Comment on above: Order Comment: No: D o not add to previous draw Performed By: #### 1 69, #### [facility] [address] [place] [address], [place] Calcium [Mass/Vol] 8.8 mg/dL Normal 8.6-10.3 [facility] Comment on above: Order Comment: No: D o not add to previous draw Performed By: #### 1 69, 88383 #### [facility] [address] [place] [address], [place] Chloride [Moles/Vol] 104 mmol/L Normal 98-107 [facility] Comment on above: Order Comment: No: D o not add to previous draw Performed By: #### 1 0070, 74758 #### [facility] [address] [place] [address], [place] CO2 [Moles/Vol] 26 mmol/L Normal 21-31 [facility] Comment on above: Order Comment: No: D o not add to previous draw Performed By: #### 1 0, 95953 #### [facility] [address] [place] [address], [place] Creatinine [Mass/Vol] 0.94 mg/dL Normal 0.70-1.30 [facility] Comment on above: Order Comment: No: D o not add to previous draw Performed By: #### 1 0, 90949 #### [facility] [address] [place] [address], [place] GFR/1.73 sq M.predicted among blacks MDRD (S/P/Bld) [Vol rate/Area] mL/min/{1.73_m2} Normal >60 [facility] Comment on above: Order Comment: No: D o not add to previous draw Result Comment: Calc ulation may not be valid for patients over 70 years Performed By: #### 1 0, 37934 #### [facility] [address] [place] [address], [place] GFR/1.73 sq M.predicted among non-blacks MDRD (S/P/Bld) [Vol rate/Area] mL/min/{1.73_m2} Normal >60 [facility] Comment on above: Order Comment: No: D o not add to previous draw Result Comment: Calc ulation may not be valid for patients over 70 years Performed By: #### 1 0, 67964 #### [facility] [address] [place] [address], [place] Glucose [Mass/Vol] 107 mg/dL High 70-100 [facility] Comment on above: Order Comment: No: D o not add to previous draw Performed By: #### 1 0, 04848 #### [facility] [address] [place] [address], [facility] Potassium [Moles/Vol] 4.0 mmol/L Normal 3.5-5.1 [facility] Comment on above: Order Comment: No: D o not add to previous draw Performed By: #### 1 0070, 34780 #### [facility] [address] [place] [address], [place] Protein [Mass/Vol] 6.3 g/dL Normal 6.0-8.3 [facility] Comment on above: Order Comment: No: D o not add to previous draw Performed By: #### 1 0, 81252 #### [facility] [address] [place] [address], [facility] Sodium [Moles/Vol] 135 mmol/L Low 136-145 [facility] Comment on above: Order Comment: No: D o not add to previous draw Performed By: #### 1 0, 06330 #### [facility] [address] [place] [address], [place] Urea nitrogen [Mass/Vol] 18 mg/dL Normal 7-25 [facility] Comment on above: Order Comment: No: D o not add to previous draw Performed By: #### 1 0, 81092 #### [facility] [address] [place] [address], [place] MAGNESIUM BLOODon 01-01-2021 Magnesium [Mass/Vol] 1.6 mg/dL Low 1.9-2.7 [facility] Comment on above: Order Comment: No: D o not add to previous draw Performed By: #### 1 0, 62631 #### [facility] [address] [place] [address], [facility] Cardiovascular Lab Reporton 12-31-2020 Cardiovascular Lab Report [facility] Patient Name: Juan Barcenas MR #: [id number] [facility] Physician: Sissy Garcia M.D. Department of Service Date: 12/31/2020 Medicine Birthdate: 1935 Division of Room #: 3AB 204455 Cardiology Adult Cardiovascular Services [facility] [address] [place] [address] [place] [address] Cardiovascular Laboratory Report INDICATION: The patient is an 85-year-old man with prior history of bypass surgery in the past and dual-chamber pacemaker. He has severe symptomatic aortic valve stenosis. He was evaluated in Cardiology and Cardiothoracic Surgery Clinics and referred for TAVR. PROCEDURE: 1. Successful transcatheter aortic valve replacement using a Genevieve Ultra 29 mm transcatheter valve deployed at [...] femoral vein under ultrasound guidance. INTERVENTIONAL CARDIOLOGY SEISMIC INTERPRETER: Sissy Garcia M.D. CARDIOTHORACIC SURGERY SEISMIC INTERPRETER: Douglas De La Rosa MD. HOME CARE ASSISTANT: Rashad Rajput MD. METHODS: The procedure was explained to the patient with risks and benefits. He signed informed consent. He was brought to labor training manager in a fasting state. Both groin areas were prepped and draped in usual fashion. The procedure was performed in the labor training manager under conscious sedation. Using ultrasound guidance, access was obtained in the right and left common femoral arteries and after inner cannula angiography confirmed adequate placement, access was upsized to a 6-Ukrainian x 11 cm sheath on both sited. Access was obtained using same technique in the left common femoral vein and a 6-Ukrainian x 11 cm sheath was placed. Preclosure in the right common femoral artery was performed using 2 crossing 6-Ukrainian ProGlide devices and the access was upsized to a 10-Ukrainian x 11 cm sheath. A 6-Ukrainian angled pigtail catheter was advanced through the [...] upsized using a Lunderquist wire to the 16-Ukrainian Murillo eSheath, which was secured in place. A 6-Ukrainian AL1 diagnostic catheter was advanced and using a Glidewire, the aortic valve was crossed and the catheter was then exchanged over wire to a 6-Ukrainian angled pigtail catheter, which was used to place an exchange length Amplatz extra stiff wire in the left ventricle. The Murillo Genevieve Ultra 29 mm valve was prepped at nominal volume -2 mL and was advanced across the nisqually aortic valve and under rapid pacing at [...] month with echocardiogram. Electronically Signed by: Sissy Garcia M.D. 01/05/2021 09:56 A Sissy Garcia M.D. Date Dict: 12/31/2020/12:29 P/Sissy Garcia M.D. Date Trans: 12/31/2020 04:01 P/monster [id number] cc: Tony Burgos M.D. [address] [place] [phone] Radha Chandler, MSN, DRAW OFF WORKER [facility], D (more content not included)... Normal [facility] Operative Reporton Operative Report MR#: [id number] [facility] Pt. Name: Juan Barcenas Room #: 3AB [id number] Discharge Date: Birthdate: 1935 OPERATIVE REPORT DATE OF SURGERY: 12/31/2020 SURGEON: Douglas De La Rosa MD PREOPERATIVE DIAGNOSES: Severe aortic stenosis. Previous coronary artery bypass grafting. POSTOPERATIVE DIAGNOSES: Severe aortic stenosis. Previous coronary artery bypass grafting. OPERATION: Percutaneous transfemoral transcatheter aortic valve replacement with 29 mm Genevieve Ultra valve. CO-SURGEON: Sissy Garcia M.D. MEDICAL AFFAIRS DIRECTOR: Dr. Rajput. ANESTHESIA: MAC. INDICATIONS: This is [...] artery and the sheath was upgraded to 8-Ukrainian sheath. Through the left groin sheath, a pigtail catheter was inserted in the ascending aorta. A temporaryp pacemaker was inserted through the left femoral vein and tested for later use. At this time, the patient was heparinized and right femoral arterial sheath was upgraded over Lunderquist wire to a 16-Ukrainian sheath. An AL4 catheter inserted in the ascending aorta through which a straight wire was used to cross the aortic valve and a pigtail catheter inserted in the left ventricle through which an Extra Stiff Amplatz wire inserted in the left ventricle. The patient had been heparinized before the sheath was introduced and then under rapid ventricular pacing, a 29 mm Genevieve S Ultra valve with 2 mL less [...] Rosa MD Date Trans: 12/31/2020 05:02 P/monster [id number] cc: Tony Burgos M.D. [address] [place] [phone] Radha Chandler, MSN, DRAW OFF WORKER [facility], Dept. Of Surgery [facility] [address] [place] [address] Normal [facility] TYPE AND SCREENon 12-31-2020 ABO INTERPRETATION O Normal [facility] Comment on above: Performed By: #### 3 0323 #### [facility] [address] [place] [address], [facility] RH INTERPRETATION Positive Normal [facility] Comment on above: Performed By: #### 3 0323 #### [facility] [address] [facility] [place], [place] [address] BASIC METABOLIC PANELon 05- Calcium [Mass/Vol] 9.2 mg/dL Normal 8.6-10.3 [facility] Comment on above: Performed By: #### 3 0323 #### [facility] [address] [place] [address], [facility] Chloride [Moles/Vol] 106 mmol/L Normal 98-107 [facility] Comment on above: Performed By: #### 3 0323 #### [facility] [address] [place] [address], [place] CO2 [Moles/Vol] 26 mmol/L Normal 21-31 [facility] Comment on above: Performed By: #### 3 0323 #### [facility] [address] [place] [address], [place] Creatinine [Mass/Vol] 1.02 mg/dL Normal 0.70-1.30 [facility] Comment on above: Performed By: #### 3 0323 #### [facility] [address] [place] [address], [place] GFR/1.73 sq M.predicted among blacks MDRD (S/P/Bld) [Vol rate/Area] mL/min/{1.73_m2} Normal >60 [facility] Comment on above: Result Comment: Calc ulation may not be valid for patients over 70 years Performed By: #### 3 0323 #### [facility] [address] [place] [address], [place] GFR/1.73 sq M.predicted among non-blacks MDRD (S/P/Bld) [Vol rate/Area] mL/min/{1.73_m2} Normal >60 [facility] Comment on above: Result Comment: Calc ulation may not be valid for patients over 70 years Performed By: #### 3 0323 #### [facility] [address] [place] [address], [place] Glucose [Mass/Vol] 83 mg/dL Normal 70-100 [facility] Comment on above: Performed By: #### 3 0323 #### [facility] [address] [place] [address], [place] Potassium [Moles/Vol] 4.5 mmol/L Normal 3.5-5.1 [facility] Comment on above: Performed By: #### 3 0323 #### [facility] [address] [place] [address], [place] Sodium [Moles/Vol] 139 mmol/L Normal 136-145 [facility] Comment on above: Performed By: #### 3 0323 #### [facility] [address] Urea nitrogen [Mass/Vol] 22 mg/dL Normal 7-25 [facility] Comment on above: Performed By: #### 3 0323 #### [facility] [address] [facility]. [address] BNP (B-TYPE NATRIURETIC PEPT MANUEL)on 11-19-2020 Natriuretic peptide B (Bld) [Mass/Vol] 168 pg/mL High 0-100 [facility] Comment on above: Result Comment: Give n the appropriate clinical setting a BNP result of >100 pg/mL indicates congestive heart failure. Performed By: #### 8 5123 #### [facility] [address] CBC COMPLETE BLOOD COUNTon 0 11-19-2020 Erythrocyte distribution width (RBC) [Ratio] 14.5 % Normal 11.5-15.0 [facility] Comment on above: Performed By: #### 5 0608 #### [facility] [address] Hematocrit (Bld) [Volume fraction] 38.6 % Low 39.0-50.0 [facility] Comment on above: Performed By: #### 5 0608 #### [facility] [address] [facility]. [address] Hemoglobin (Bld) [Mass/Vol] 12.2 g/dL Low 13.0-17.0 [facility] Comment on above: Performed By: #### 5 0608 #### [facility] [address] MCH (RBC) [Entitic mass] 29.0 pg Normal 27.0-33.0 [facility] Comment on above: Performed By: #### 5 0608 #### [facility] [address] MCHC (RBC) [Mass/Vol] 31.6 g/dL Low 32.0-35.0 [facility] Comment on above: Performed By: #### 5 0608 #### [facility] [address] [place] [address], [facility] MCV (RBC) [Entitic vol] 91.7 fL Normal 82.0-98.0 [facility] Comment on above: Performed By: #### 5 0608 #### [facility] [address] [place] [address], [facility] Nucleated RBC/100 WBC (Bld) [Ratio] 0 % Normal 0-0 [facility] Comment on above: Performed By: #### 5 [id number] #### [facility] [address] PLAT CNT 265 10*3/uL Normal 150-400 [facility] Comment on above: Performed By: #### 5 0608 #### [facility] 3000 [place] [address], [facility] RBC (Bld) [#/Vol] 4.21 10*6/uL Normal 4.20-5.70 [facility] Comment on above: Performed By: #### 5 [id number] #### [facility] [address] [place] [address], [facility] WBC (Bld) [#/Vol] 6.97 10*3/uL Normal 4.00-10.60 [facility] Comment on above: Performed By: #### 5 0608 #### [address] CHEST AND LATERALon 11-20-19 21 CHEST AND LATERAL [facility] Department of Radiology [address] [place] [address] [id number] Patient Name: JUAN BARCENAS : 1935 Sex: M Age: Race: White Pt. Location: 30 Patient Status: O Ordered Date: 11/18/2020 4:20:00 PM Completed Date: 11/19/2020 11:30 AM Requesting Provider: SISSY GARCIA V Attending Provider: SISSY GARCIA V Report Copy To: TONY BURGOS Signs & Symptoms: Z95.0 Presence of cardiac pacemaker I10 History: [place] Comments: , PA and lateral Exam: [...] October. No new abnormalities Electronically signed: Mandeep Medina. Transcribed by: [email or web address], User Resident: Electronically Signed by: MANDEEP MEDINA @ 11/19/2020 02:46 PM Normal [facility] Comment on above: Order Comment: , PA and lateral PROCALCITONINon 11-19-2020 PROCALCITONIN 0.05 ng/mL Normal 0.00-0.10 [facility] Comment on above: Result Comment: Susp [...] PCT<0.5ng/mL Performed By: #### 3 [id number] #### [facility] [address] *AFB CULTUREon 11-05-2020 *AFB CULTURE Clinical Report: (D) Specimen/Source: TISSUE/LUNG BIOPSY Collected: 11/05/2020 15:40 Status: Final Last Updated: 12/18/2020 14:00 (1) RUL AFB (Final) No Acid Fast Bacilli Seen CULT RES (Final) No growth after 42 days of incubation Normal [facility] Comment on above: Order Comment: RUL Performed By: #### 3 0832 #### [facility] 3000 [facility]. [address] *FUNGAL CULTUREon 11-05-2020 *FUNGAL CULTURE Clinical Report: (D) Specimen/Source: TISSUE/LUNG BIOPSY Collected: 11/05/2020 15:40 Status: Final Last Updated: 12/10/2020 08:21 (1) RUL FS (Final) No Yeast or Fungal Elements Seen CULT RES (Final) Culture negative for fungus Normal [facility] Comment on above: Order Comment: RUL Performed By: #### 3 0323 #### [address] *TISSUE CULTUREon 11-05-2020 *TISSUE CULTURE Clinical Report: (D) Specimen/Source: TISSUE/LUNG BIOPSY Collected: 11/05/2020 15:40 Status: Final Last Updated: 11/10/2020 10:46 (1) RUL GRAM (Final) No Polys Seen Rare Gram Positive Cocci In Chains CULT RES (Final) No Growth Day 5 Normal [facility] Comment on above: Order Comment: RUL Performed By: #### 5 [id number] #### [address] FLUORO FOR BRONCHOSCOPYon FLUORO FOR BRONCHOSCOPY [facility] Department of Radiology [address] [place] [phone] Patient Name: JUAN BARCENAS : 1935 Sex: M Age: Race: White Pt. Location: OUT Patient Status: Ordered Date: 11/05/2020 2:00:00 PM [...] provided. Electronically signed: Milvia Rosales. Transcribed by: [email or web address], User Resident: Electronically Signed by: MILVIA ROSALES @ 11/06/2020 11:17 AM Normal [facility] Comment on above: Order Comment: RUL Operative Reporton Operative Report MR#: [id number] [facility] Pt. Name: Juan Barcenas Room #: 0C Discharge Date: Birthdate: 1935 OPERATIVE REPORT DATE OF SURGERY: 11/05/2020 SURGEON: Nicole Guerrero MD EBUS-TBNA, fluoroscopic guided transbronchial biopsies and BAL procedure note Patient: Juan Barcenas Date: 11/05/2020 Indication: Diagnostic/therapeutic bronchoscopy Procedure Pivot Maker: Shelbi Garrido MD Supervising Attending: Nicole Guerrero [...] Garrido MD Date Trans: 11/05/2020 04:12 P/ [id number] cc: Tony Burgos M.D. [address] [place] [address] [facility] [phone] Normal [facility] POC GLUCOSE LABon 11-05-2020 Glucose [Mass/Vol] 90 mg/dL Normal 70-100 [facility] Comment on above: Performed By: #### 3 0323 #### [address] POC SARS COV2 ANTIGEN NEGATI VEon 11-05-2020 POC SARS COV2 ANTIGEN NEG Negative Normal NEGATIVE [facility] Comment on above: Result Comment: Nega [...] Accreditation. Performed By: #### 3 1944 #### [facility] 3000 [facility]. [address] PORTABLE CHEST 1 VIEWon 10-11 PORTABLE CHEST 1 VIEW [facility] Department of Radiology [address] [place] [phone] Patient Name: JUAN BARCENAS : 1935 Sex: [...] pneumothorax. Electronically signed: Gilberto Payton. Transcribed by: [email or web address], User Resident: Electronically Signed by: GILBERTO PAYTON @ 11/05/2020 05:34 PM Normal [facility] Comment on above: Order Comment: evalu ate for Pneumothorax *AFB CULTUREon 10-29-2020 *AFB CULTURE Clinical Report: (D) Specimen/Source: RESPIRATORY/BRONCHEAL ALVEOLAR LAVAGE Collected: 10/29/2020 15:35 Status: Final Last Updated: 12/18/2020 14:00 (1) RUL BAL AFB (Final) No Acid Fast Bacilli Seen CULT RES (Final) No growth after 42 days of incubation Normal [facility] Comment on above: Order Comment: RUL B AL Performed By: #### 5 0608 #### [address] *FUNGAL CULTUREon 10-29-2020 *FUNGAL CULTURE Clinical Report: (D) Specimen/Source: RESPIRATORY/BRONCHEAL ALVEOLAR LAVAGE Collected: 10/29/2020 15:35 Status: Final Last Updated: 11/12/2020 14:16 (1) RUL BAL FS (Final) No Yeast or Fungal Elements Seen ISO (Final) Radha albicans Presumptive Normal [facility] Comment on above: Order Comment: RUL B AL Performed By: #### 5 0608 #### [address] *RESPIRATORY CULTUREon 10-29 *RESPIRATORY CULTURE Clinical Report: (D ) Specimen/Source: RESPIRATORY/BRONCHEAL ALVEOLAR LAVAGE Collected: 10/29/2020 15:35 Status: Final Last Updated: 11/09/2020 06:44 (1) RUL BAL GRAM (Final) Few Polys Rare Ciliated Columnar Epithelial Cells No Bacteria Seen CYTOSPUN (Final) This Gram Stain was done on a cytocentrifuged specimen ISO (Final) Colonies Consistent with Upper Respiratory Nerissa >10,000 Cfu/mL Normal [facility] Comment on above: Order Comment: RUL Performed By: #### 3 0323 #### [address] CTA ABDOMEN AND PELVISon CTA ABDOMEN AND PELVIS [facility] Department of Radiology [address] [place] [phone] Patient Name: JUAN BARCENAS Usama : 1935 Sex: M Age: Race: White Pt. Location: 30 Patient Status: D Ordered Date: 10/15/2020 10:55:00 AM Completed Date: 10/22/2020 02:56 PM Requesting Provider: SISSY GARCIA V Attending Provider: SISSY GARCIA V Report Copy To: TONY BURGOS Signs & Symptoms: I35.0 Nonrheumatic aortic (valve) stenosis I10 History: [place] medicare [place] required [address] cta abdomen pelvis / I35.0 med nec [...] achievable Electronically signed: Dav Lopez. Transcribed by: [email or web address], User Resident: Electronically Signed by: DAV LOPEZ @ 10/24/2020 09:06 AM Normal [facility] Comment on above: Order Comment: (TAVR ) Protocol CTA CHESTon 10-22-2020 CTA CHEST [facility] Department of Radiology [address] [place] [phone] Patient Name: JUAN BARCENAS : 1935 Sex: M Age: Race: White Pt. Location: Patient Status: D Ordered Date: 10/15/2020 10:55:00 AM Completed Date: 10/22/2020 02:56 PM Requesting Provider: SISSY GARCIA V Attending Provider: SISSY GARCIA V Report Copy To: TONY BURGOS Signs & Symptoms: I35.0 Nonrheumatic aortic (valve) stenosis I10 History: [place] medicare no pc required cta chest 46273/I35.0 med nec passed *kw Comments: EKG gated-TAVR [...] 3 cusped view, anterior view and no JOB FOREMAN-CAU view are obtained in 3-D. The annulus [...] place. Electronically signed: Dav Lopez. Transcribed by: [email or web address], User Resident: Electronically Signed by: DAV LOPEZ @ 10/24/ (more content not included)... Normal [facility] Comment on above: Order Comment: EKG g ated-TAVR protocol Cardiovascular Lab Reporton 10-18-2020 Cardiovascular Lab Report [facility] Patient Name: Juan Barcenas MR #: [id number] [facility] Physician: Sissy Garcia M.D. Department of Service Date: 10/17/2020 Medicine Birthdate: 1935 Division of Room #: CC Cardiology Adult Cardiovascular Services [facility] [address]. [place], [place] [address] Cardiovascular Laboratory Report INDICATION: The patient is an 85-year-old man with history of severe aortic valve stenosis. He has prior history of bypass surgery in the past. He recently was admitted to the [facility] with decompensated heart failure and pneumonia. He was evaluated in Cardiology Clinic and was referred for cardiac catheterization in preparation for transcatheter aortic valve replacement. PROCEDURES: 1. Right heart catheterization. 2. Bilateral selective coronary angiography. 3. Graft angiography. 4. Limited right common femoral angiography. METHODS: Procedure was explained to the patient with risks and benefits. He signed consent. He was brought to labor training manager in a fasting state. The right groin area was prepped and draped in usual fashion. Using micropuncture technique, the right common femoral artery was accessed. The inner cannula was advanced. Limited right common femoral angiography was performed followed by upsizing to a 5-Ukrainian x 11 cm sheath. Access was also obtained in the same technique using the micropuncture technique in the right common femoral vein and a 6-Ukrainian x 11 cm sheath was placed. A 6-Ukrainian Hart catheter was used for right catheterization with measurement of pressures and calculation of cardiac output using the estimated Zion method. Bilateral selective coronary angiography was then performed using 5-Ukrainian JL4 and JR4 diagnostic catheters. The 5-Ukrainian JR4 diagnostic catheter was used to selectively [...] opacification. The catheter was then removed. A 5-Ukrainian MIESHA diagnostic catheter was used to selectively [...] grafts. 3. Moderately elevated filling pressures. 4. Kqrk-dv-tfztlqdd pulmonary hypertension. 5. Mildly reduced cardiac output and cardiac index. RECOMMENDATIONS: 1. Continue current medical therapy. 2. The patient will continue to be evaluated for transcatheter aortic valve replacement. Electronically Signed by: Sissy Garcia M.D. 10/20/2020 05:02 P Sissy Garcia M.D. Date Dict: 10/17/2020/03:26 P/Sissy Garcia M.D. Date Trans: 10/18/2020 04:41 A/andrewo [id number] cc: Tony Burgos M.D. [address] [place] [address], [address] [facility] [phone] [facility] Vital Signs Date Time Vital Sign Value Performing Clinician Reynaldo maharaj 11-04-2021 14:41-0400 Blood Pressure Location Shelbi NILL [facility] [place] 11-04-2021 14:41-0400 Diastolic blood pressure 76 mm[Hg] Shelbi NILL [facility] [place] 11-04-2021 14:41-0400 Heart rate 68 /min Shelbi NILL [facility] [place] 11-04-2021 14:41-0400 Respiratory rate 16 /min Shelbi NILL [facility] [place] 11-04-2021 14:41-0400 Systolic blood pressure 144 mm[Hg] Shelbi NILL [facility] [place] Encounters Encounter Date Encounter Type Care Provider Facility Start: 09-11-2025 ambulatory Isabela Bowman Facility: [facility] [place] Start: 09-13-2024 End: 09-13-2024 ambulatory Isabela Bowman Facility:[facility] [place] Start: 09-11-2024 End: 09-11-2024 ambulatory Nesha Valencia Facility:[facility] [place] Start: 09-06-2024 End: 09-06-2024 ambulatory [facility] Start: 05-30-2024 End: 05-30-2024 ambulatory [facility] Start: 05-23-2024 End: 05-23-2024 ambulatory [facility] Start: 04-17-2024 End: 04-17-2024 ambulatory Isabela Bowman Facility:[facility] Start: 10-26-2023 End: 10-26-2023 ambulatory [facility] Start: 10-19-2023 End: 10-19-2023 ambulatory [facility] Start: 09-29-2023 End: 09-29-2023 ambulatory Isabela Bowman Facility:[facility] Start: 12-04-2022 End: 12-05-[address] TONY BURGOS . Facility:[facility] Start: 10-01-2022 End: 10-02-[address] TONY BURGOS . Facility:[facility] Start: 09-24-2022 End: 09-25-[address] TONY BURGOS . Facility:[facility] Start: 08-17-2022 Encounter for other preprocedural examination [facility] Start: 08-12-2022 End: 08-13-[address] [...] Patient encounter procedure Shelbi ABRAHAM [facility] [place] Start: 12-31-2020 End: 01-01-2021 Evaluation and management of inpatient RADHA CHANDLER Facility:[facility] Start: 11-05-2020 End: 11-06-2020 ambulatory [place] Facility:[facility] Start: 10-17-2020 End: 10-18-2020 ambulatory TONY BURGOS Facility:[facility] Procedures Date Procedure Procedure Detail [...] IGHT AND LEFT HEART, TRANSESOPHAGEAL EHAB A ELTAHAWSiddhartha Start: 12-31-2020 Antibody screen TONY ALONZO Sk[facility] Comment on above: Performed By: #### 3 0323 #### [facility] 3000 [facility]. [address] Start: 12-31-2020 FLUOROSCOPY OF THORA CIC [...] ABRAHAM Payers Date Payer Category Payer Medicare [id number] 1957 Self-pay [id number] 1957 Unknown [id number] 1935 Unknown [id number] 2.16.8 40.1.726939.3.579.2.647 1935 Unknown [id number] 2.16.8 40.1.386318.3.579.2.647 1935 Unknown [id number] 2.16.8 40.1.890078.3.579.2.647 1935 Unknown [id number] 2.16.84 0.1.333077.3.579.2.593 1935 Unknown [id number] 2.16.84 0.1.321789.3.579.2.593 1935 Unknown [id number] 2.16.84 0.1.712720.3.579.2.593 1935 Unknown [id number] 2.16.84 0.1.232933.3.579.2.593 1937 Unknown [id number] 2.16.84 0.1.783821.3.579.2.593 1937 Unknown [id number] 2.16.84 0.1.532158.3.579.2.593 1937 Unknown [id number] 2.16.84 0.1.853140.3.579.2.593 1937 Unknown [id number] 2.16.84 0.1.166129.3.579.2.593 1937 Unknown [id number] 2.16.84 0.1.495914.3.579.2.593 1937 Unknown [id number] 2.16.84 0.1.825999.3.579.2.593 1937 Unknown [id number] 2.16.84 0.1.241477.3.579.2.593 1937 Unknown [id number] 2.16.84 0.1.460525.3.579.2.593 1937 Unknown [id number] 2.16.84 0.1.913163.3.579.2.593 1937 Unknown [id number] 2.16.84 0.1.858441.3.579.2.593 1937 Unknown [id number] 2.16.84 0.1.781874.3.579.2.593 1937 Unknown [id number] 2.16.84 0.1.326821.3.579.2.593 1937 Unknown [id number] 2.16.84 0.1.243455.3.579.2.593 1937 Unknown [id number] 2.16.84 0.1.711427.3.579.2.593 1937 Unknown [id number] 2.16.84 0.1.073426.3.579.2.593 1937 Unknown [id number] 2.16.84 0.1.121492.3.579.2.593 1937 Unknown [id number] 2.16.84 0.1.120650.3.579.2.593 1937 Unknown [id number] 2.16.84 0.1.450991.3.579.2.593 1937 Unknown [id number] 2.16.84 0.1.232556.3.579.2.593 1937 Unknown [id number] 2.16.84 0.1.115429.3.579.2.593 1937 Unknown [id number] 2.16.84 0.1.498258.3.579.2.593 1937 Unknown [id number] 2.16.84 0.1.405097.3.579.2.593 1937 Unknown [id number] 2.16.84 0.1.585315.3.579.2.593 1937 Unknown [id number] 2.16.84 0.1.783677.3.579.2.593 1937 Unknown [id number] 2.16.84 0.1.094200.3.579.2.593 1937 Unknown [id number] 2.16.84 0.1.690950.3.579.2.593 1937 Unknown [id number] 2.16.84 0.1.920321.3.579.2.593 1937 Unknown [id number] 2.16.84 0.1.596661.3.579.2.593 1937 Unknown [id number] 2.16.84 0.1.921298.3.579.2.593 1937 Unknown [id number] 2.16.8 40.1.854532.3.579.2.727 1937 Unknown [id number] 2.16.8 40.1.886496.3.579.2.727 1935 Unknown [id number] 2.16.8 40.1.653785.3.579.2.727 1937 Unknown [id number] 2.16.8 40.1.125382.3.579.2.727 1935 Unknown [id number] 2.16.8 40.1.064618.3.579.2.727 Social History Date Type Detail Facility Start: 11-04-2021 Tobacco smoking status Ex-smoker (fi nding) [facility] [place] Tobacco smoking status Never [facility] [place] Sex Assigned At Male [facility] [place] Clinical Note 09-11-2024 Note Date & Type Note Facility 09-11-2024 Note Patient Education Cardiovascular Hypertension, Adult Hypertension is another name for high blood pressure. High blood pressure forces your heart to work harder to pump blood. This can cause problems over time. There are two numbers in a blood pressure reading. There is a top number (systolic) over a bottom number (diastolic). It is best to have a blood pressure that is below 120/80. What are the causes? The cause of this condition is not known. Some other conditions can lead to high blood pressure. What increases the risk? Some lifestyle factors can make you more likely to develop high blood pressure: ??? Smoking. ??? Not getting enough exercise or physical activity. ??? Being overweight. ??? Having too much fat, sugar, calories, or salt (sodium) in your diet. ??? Drinking too much alcohol. Other risk factors include: ??? Having any of these conditions: ? Heart disease. ? Diabetes. ? High cholesterol. ? Kidney disease. ? Obstructive sleep apnea. ??? Having a family history of high blood pressure and high cholesterol. ??? Age. The risk increases with age. ??? Stress. What are the signs or symptoms? High blood pressure may not cause symptoms. Very high blood pressure (hypertensive crisis) may cause: ??? Headache. ??? Fast or uneven heartbeats (palpitations). ??? Shortness of breath. ??? Nosebleed. ??? Vomiting or feeling like you may vomit (nauseous). ??? Changes in how you see. ??? Very bad chest pain. ??? Feeling dizzy. ??? Seizures. How is this treated? This condition is treated by making healthy lifestyle changes, such as: ? Eating healthy foods. ? Exercising more. ? Drinking less alcohol. ??? Your doctor may prescribe medicine if lifestyle changes do not help enough and if: ? Your top number is above 130. ? Your bottom number is above 80. ??? Your personal target blood pressure may vary. Follow these instructions at home: Eating and drinking ??? If told, follow the DASH eating plan. To follow this plan: ? Fill one half of your plate at each meal with fruits and vegetables. ? Fill one fourth of your plate at each meal with whole grains. Whole grains include whole-wheat pasta, brown rice, and whole-grain bread. ? Eat or drink low-fat dairy products, such as skim milk or low-fat yogurt. ? Fill one fourth of your plate at each meal with low-fat (lean) proteins. Low-fat proteins include fish, chicken without skin, eggs, beans, and tofu. ? Avoid fatty meat, cured and processed meat, or chicken with skin. ? Avoid pre-made or processed food. ??? Limit the amount of salt in your diet to less than 1,500 mg each day. ??? Do not drink alcohol if: ? Your doctor tells you not to drink. ? You are , may be , or are planning to become . ??? If you drink alcohol: ? Limit how much you have to: ? 0?1 drink a day for women. ? 0?2 drinks a day for men. ? Know how much alcohol is in your drink. In the [place] one drink equals one 12 oz bottle of beer (355 mL), one 5 oz glass of wine (148 mL), or one 1? oz glass of hard liquor (44 mL). Lifestyle ??? Work with your doctor to stay at a healthy weight or to lose weight. Ask your doctor what the best weight is for you. ??? Get at least 30 minutes of exercise that causes your heart to beat faster (aerobic exercise) most days of the week. This may include walking, swimming, or biking. ??? Get at least 30 minutes of exercise that strengthens your muscles (resistance exercise) at least 3 days a week. This may include lifting weights or doing Pilates. ??? Do not smoke or use any products that contain nicotine or tobacco. If you need help quitting, ask your doctor. ??? Check your blood pressure at home as told by your doctor. ??? Keep all follow-up visits. Medicines ??? Take sddu-fha-cvloaup and prescription medicines only as told by your doctor. Follow directions carefully. ??? Do not skip doses of blood pressure medicine. The medicine does not work as well if you skip doses. Skipping doses also puts you at risk for problems. ??? Ask your doctor about side effects or reactions to medicines that you should watch for. Contact a doctor if: ??? You think you are having a reaction to the medicine you are taking. ??? You have headaches that keep coming back. ??? You feel dizzy. ??? You have swelling in your ankles. ??? You have trouble with your vision. Get help right away if: ??? You get a very bad headache. ??? You start to feel mixed up (confused). ??? You feel weak or numb. ??? You feel faint. ??? You have very bad pain in your: ? Chest. ? Belly (abdomen). ??? You vomit more than once. ??? You have trouble breathing. These symptoms may be an emergency. Get help right away. Call 911. ??? Do not wait to see if the symptoms will go away. ??? Do not drive yourself to the hospital. Summary ??? Hypertension is a (more content not included)... [facility] Progress note 09-06-2024 Note Date & Type Note Facility 09-06-2024 Note [facility] Subjective Juan Barcenas is a 89 y.o. year old male patient being seen for 3 mo follow up HFrEF, PAF, aortic valve disorder s/p TAVR, and hypertension. Had routine labs with lipid panel drawn this morning. Ana Barajas CNP increased atorvastatin to 40mg daily. Daughter states pharmacy has still been filling to 20mg tablets so the increase was never made. Patient denies increase in COOK, but his daughter says otherwise. Mr. Barcenas denies chest pain, palpitations, lightheadedness/syncope, and LE edema. Patient Active Problem List Diagnosis Aortic valve disorder Aortic valve stenosis Presence of cardiac resynchronization therapy pacemaker (LEMON GROWER-P) Pacing-induced cardiomyopathy (CMS/HCC) Coronary arteriosclerosis Dizziness and giddiness Dyspnea Essential hypertension Hyperlipidemia Joint pain Local infection of skin and subcutaneous tissue Pulmonary emphysema (CMS/HCC) Paroxysmal atrial fibrillation (CMS/HCC) Syncope and collapse Atrial flutter (CMS/HCC) Acute diastolic heart failure (CMS/HCC) Adenomatous polyp of colon Anemia Iron deficiency anemia skilled nursing current use of anticoagulant therapy Overweight with body mass index (BMI) 25.0-29.9 Polymyalgia rheumatica Stage 3 chronic kidney disease (CMS/HCC) CHF (congestive heart failure) (CMS/HCC) GI (gastrointestinal bleed) NSVT (nonsustained ventricular tachycardia) ([facility]) Stenosis of left carotid artery Pure hypercholesterolemia Family History Problem Relation Name Age of Onset Stroke Mother Other (LYPHOMA) Father Social History Tobacco Use Smoking status: Former Types: Cigarettes Passive exposure: Past Smokeless tobacco: Never Vaping Use Vaping status: Never Used Substance Use Topics Alcohol use: Never Drug use: Never HPI Juan is seen in follow-up. 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 His ejection fraction improved to 50-55% on echocardiogram in November 2023. He has a history of GI bleed due to AVM. At last visit of 05/30/2024 at our office with AUBREY Barajas, atorvastatin was increased to 40 mg daily for better control of his lipids but he did not make the increase. Due to worsening renal function he was recommended holding Lasix for few days after that visit. Today he had blood work but we do not have the results yet. The visit today is in the presence of his daughter. She reports that he has been having shortness of breath on exertion that has been worsening. He does say that he has shortness of breath on exertion whenever he does something physical or walks a little faster than usual. He does have lower extremity edema bilaterally. He denies chest pain and palpitations. Review of Systems Cardiovascular: Positive for dyspnea on exertion and leg swelling. Negative for chest pain. All other systems reviewed and are negative. Objective Visit Vitals BP 164/78 (BP Location: Right arm, Patient Position: Sitting) Pulse 62 Ht 1.702 m (5' 7 ) Wt 77.1 kg (170 lb) SpO2 97% BMI 26.63 kg/m??? Smoking Status Former BSA 1.91 m??? Physical Exam Constitutional: Appearance: He is well-developed. He is not ill-appearing. HENT: Head: Normocephalic and atraumatic. Nose: Nose normal. Eyes: General: No scleral icterus. Pupils: Pupils are equal, round, and reactive to light. Neck: Thyroid: No thyromegaly. Vascular: No JVD. Cardiovascular: Rate and Rhythm: Normal rate and regular rhythm. Pulses: Radial pulses are 2+ on the right side and 2+ on the left side. Heart sounds: Murmur heard. Systolic (LLSB, apex) murmur is present with a grade of 3/6. No friction rub. No gallop. Pulmonary: Effort: Pulmonary effort is normal. No respiratory distress. Breath sounds: Normal breath sounds. No wheezing or rales. Chest: Chest wall: No tenderness. Abdominal: General: Bowel sounds are normal. There is no distension. Palpations: Abdomen is soft. Tenderness: There is no abdominal tenderness. Musculoskeletal: General: No swelling. Cervical back: Neck supple. Right lower le+ Pitting Edema present. Left lower le+ Pitting Edema present. Skin: General: Skin is warm and dry. Neurological: General: No focal deficit present. Mental Status: He is alert and oriented to person, place, and time. Psychiatric: Mood and Affect: Mood normal. Behavior: Behavior is cooperative. Judgment: Judgment normal. Allergies No Known Allergies Medications Current Outpatient Medications: amiodarone (Pacerone) 200 mg tablet, Take 1 tablet (200 mg) by mouth in the morning., Disp: 90 tablet, Rfl: 3 amLODIPine (Norvasc) 10 mg tablet, Take 1 tablet (10 (more content not included)... [facility] 05[facility]30-[facility]24 Note Date & Type Note Facility 05-30-2024 Note Cardiovascular Medic [facility] SUBJECTIVE Chief Complaint Patient presents with Coronary Artery Disease Congestive Heart Failure Valve Disorder Juan Barcenas is a 88 y.o. male here for follow-up. His daughter accompanied him today. HPI PMHx: HFrEF, pacemaker induced cardiomyopathy s/p LEMON GROWER-P, aortic stenosis s/p TAVR on 12/31/2020 with Genevieve 29 mm valve, CAD s/p CABG, PAF, [...] here for follow s/p BiV upgrade for LEMON GROWER-P. His blood pressure readings are elevated and he is currently on Coreg 18.75mg bid, Cozaar 100 once daily, Norvasc 10 mg once daily. on this his blood pressure readings somewhat markedly elevated in the 160-180 range at 8 AM to 9 AM readings in the afternoon readings are usually in the 130-150 range. he feels good after the LEMON GROWER upgrade. He had reduced EF in 02/11/2022 [...] aortic stenosis s/p TAVR on 12/31/2020 with Genevieve 29 mm valve, CAD s/p CABG. Was [...] other occasions he was noted to have nisqually conduction. 1 so that showed (90 range Patient Active Problem List Diagnosis Aortic valve disorder Aortic valve stenosis Presence of cardiac resynchronization therapy pacemaker (LEMON GROWER-P) Pacing-induced cardiomyopathy (CMS/HCC) Coronary arteriosclerosis Dizziness and giddiness Dyspnea Essential hypertension Hyperlipidemia Joint pain Local infection of skin and subcutaneous tissue Pulmonary emphysema (CMS/HCC) Paroxysmal atrial fibrillation (CMS/HCC) Syncope and collapse Atrial flutter (CMS/HCC) Acute diastolic heart failure (CMS/HCC) Adenomatous polyp of colon Anemia Iron deficiency anemia skilled nursing current use of anticoagulant therapy Overweight with [...] 138/72 (BP Locat (more content not included)... [facility] 05-30-2024 Note Date & [...] All other systems reviewed and are negative. [facility] 10-19-2023 Note Date & [...] All other systems reviewed and are negative. [facility] 10-19-2023 Note Date & Type Note Facility 10-19-2023 Note Cardiovascular Medic [facility] SUBJECTIVE No chief complaint on file. Juan Barcenas is a 88 y.o. male here for follow-up. His daughter accompanied him today. HPI PMHx: HFrEF, pacemaker induced cardiomyopathy s/p LEMON GROWER-P, aortic stenosis s/p TAVR on 12/31/2020 with Genevieve 29 mm valve, CAD s/p CABG, PAF, [...] here for follow s/p BiV upgrade for LEMON GROWER-P. His blood pressure readings are elevated and he is currently on Coreg 18.75mg bid, Cozaar 100 once daily, Norvasc 10 mg once daily. on this his blood pressure readings somewhat markedly elevated in the 160-180 range at 8 AM to 9 AM readings in the afternoon readings are usually in the 130-150 range. he feels good after the LEMON GROWER upgrade. He had reduced EF in 02/11/2022 [...] aortic stenosis s/p TAVR on 12/31/2020 with Genevieve 29 mm valve, CAD s/p CABG. Was [...] other occasions he was noted to have nisqually conduction. 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 Overweight with body mass index (BMI) 25.0-29.9 Polymyalgia rheumatica ([facility]/HCC) Stage 3 chronic kidney disease ([facility]/HCC) CHF (congestive heart failure) ([facility]/HCC) GI (gastrointestinal bleed) NSVT (nonsustained ventricular tachycardia) ([facility]/HCC) Stenosis of left carotid artery Pure hypercholesterolemia Past Medical History: Diagnosis Date Arthritis Atrial fibrillation (CMS/HCC) CHF (congestive heart failure) ([facility]) Coronary artery disease GI (gastrointestinal bleed) HL [...] 200 mg table (more content not included)... [facility] 04-25-2022 Note Date & Type Note Facility 04-25-2022 Note [facility] Discharge summary note 01-02-2021 Note Date & Type Note Facility 01-02-2021 Note MR#: [id number] [facility] Pt. Name: BrandonJuan vyas Usama Admitted: 12/31/2020 Discharged: 01/01/2021 Date of : 1935 Physician: Sissy Garcia M.D. DISCHARGE SUMMARY ADMISSION DIAGNOSIS: Severe symptomatic aortic stenosis. DISCHARGE DIAGNOSIS: Severe symptomatic aortic stenosis, status post successful TAVR. DISCHARGING PHYSICIAN: Sissy Garcia M.D. HISTORY OF PRESENT ILLNESS/HOSPITAL COURSE: The patient is an 85-year-old gentleman with a past medical history including CAD status post bypass surgery, dual chamber pacemaker, and severe symptomatic aortic stenosis. He presented to [facility] on 12/31/2020 for planned transcatheter [...] patient was seen and staffed with Dr. Garcia, attending physician on the Interventional Cardiology Service. He is in agreement with the documentation above. Electronically Signed by: Sissy Garcia M.D. 01/05/2021 09:56 A Sissy Garcia M.D. I personally saw this patient on the day of the encounter, performed the farris portion(s) of the service and participated in the management and confirm the resident's documentation. Please note there may be an additional personal documentation from me. Date Dict: 01/01/2021/07:04 Gee/Nicole Dallas MD Date Trans: 01/02/2021 08:39 A/mmo [id number] cc: Tony Burgos M.D. [address] [place] [address] [facility] [phone] Sissy Garcia M.D. Heart Failure/ Transplant Mailstop [address] [facility] [address] Radha Chandler, MSN, D[employer] OFF [employer] [facility], Dept. Of Surgery Mailstop [address] [facility] [id number] [facility] Evaluation + Plan note Note Date & Type Note Facility Evaluation + Plan note No data available for this section General Surgery [facility] Discharge instructions Note Date & Type Note Facility Hospital Discharge instructions No data available for this section General Surgery [place] Summary Purpose Family History No Family History [...] and content) DATE CREATED AUTHOR 09/20/2021 [facility] DATE CREATED AUTHOR AUTHOR'S ORGANIZ ATION 12/17/2021 [facility] DATE CREATED AUTHOR AUTHOR'S ORGANIZ ATION 12/18/2022 [facility] DATE CREATED AUTHOR AUTHOR'S ORGANIZ ATION 09/08/2024 [facility] DATE CREATED AUTHOR AUTHOR'S ORGANIZ ATION 09/14/2024 [facility] FOR RECORDS PERTAINING TO PATIENTS WHO [...] BE BASED ON THE PRIMARY CLINICAL RECORDS. [facility]. provides no warranty or guarantee of the accuracy or completeness of information in this document.
== END 2024-09-15 10:03 | disposition home or self-care (01) ==
LOC: CARD 10:02
PROVIDERS: PCP Family Medicine; Visit Provider Internal Medicine Interventional Cardiology
DX: I65.22 Occlusion and stenosis of left carotid artery (principal); Z95.2 Presence of prosthetic heart valve; I50.32 Chronic diastolic (congestive) heart failure; R06.02 Shortness of breath
CPT/HCPCS: 93306; 93880

== ENCOUNTER 2024-10-26 09:56 | Outpatient (OUT) | payer MEDICARE, SELFPAY ==
--- OUTSIDE RECORDS SUMMARY | 2024-10-26 10:04 | XMS_ITS | CCD ---
Author Organization [facility] Care Team Providers Care Grappler Name Role Phone TONY BURGOS Primary Care Unavailable TONY BURGOS Referring Unavailable UNKNOWN, PROVIDER Admitting Unavailable UNKNOWN, PROVIDER Attending Unavailable RADHA CHANDLER Referring Unavailable TONY BURGOS Primary Care Unavailable UNKNOWN, PROVIDER Attending Unavailable UNKNOWN, PROVIDER Admitting Unavailable DOUGLAS DE LA ROSA Surgeon Unavailable HI Procedure Practitioner Unavailab le HI Procedure Practitioner Unavailab GREGORIO LevyAB A Surgeon Unavailable HI Procedure Practitioner Unavailab TONY Hsu Referring Unavailable [...] Latham Consulting Unavailable BURGOS ., DR TONY Lathma Admitting Unavailable BURGOS ., DR TONY Latham [...] Primary Care Unavailable BURGOS ., DR TONY aLtham Attending Unavailable BURGOS ., DR TONY Latham [...] BURGOS ., DR TONY Latham Admitting Unavailable SEBEKA, DR JUSTIN Mcneill Consulting Unavailable ALBERTO VIZCAINO [...] ROCHA Admitting Unavailable Nesha Valencia Attending Unavailable Isabela Bowman Attending Unavailable Gracie, Isabela Matute Attending Unavailable Gracie, Isabela Matute Attending Unavailable Gracie, Isabela Matute Attending Unavailable OLIVIA BARAJAS Attending Unavailable SISSY GARCIA Attending Unavailable SISSY GARCIA Attending Unavailable OLIVIA BARAJAS Attending Unavailable ROBIN ADLER Referring Unavailable ROBIN ADLER Referring Unavailable Allergies Allergy Classification Reported Allergen(s) Allergy Type Date of Onset Reaction(s) Facility (1 source) No Known Medication Allergies; Translations: [No Known Medication Allergies] Propensity to adverse reactions (disorder) [facility] Repository Medications Current Medications Medication Drug [...] disease (3 sources) 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; Translations: [ASHD [place] W/O ANGINA PECTORIS] Onset: 2 Chronic [...] sources) Long-term current use of anticoagulant; Translations: [retirement (current) use of anticoagulants] Onset: 2 Episodic [...] 2 Episodic Other aftercare (1 source) Other senior care (current) drug therapy; Translations: [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] Onset: 3 Episodic Other aftercare (1 source) 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; Translations: [OVEN OPERATOR CURRNT USE ANTICOAGULANTS] Onset: 2 Episodic Other aftercare (4 sources) Encounter for therapeutic drug level monitoring; Translations: [ENC THERAPEUTC DRUG LEVL MONITORING] Onset: 2 Episodic Other aftercare (1 source) retirement (current) use of aspirin; Translations: [OVEN OPERATOR CURRENT USE OF ASPIRIN] Onset: 2 Episodic Other lower respiratory disease (1 source) Personal history of pneumonia (recurrent); Translations: [PERSONAL HX OF PNEUMONIA RECURRENT] Onset: 2 Episodic Syncope (1 source) Syncope and collapse; Translations: [SYNCOPE AND COLLAPSE] Onset: 2 Episodic Results Test Name Value Interpretation Reference Range Facility Office Visiton 09-25-2024 Follow-up visit [id number] Juan Barcenas 1935 M Date Provider Department Center 09/25/2024 SISSY MORALES [facility] Family History Problem Relation Age of Onset Stroke Mother Other Father Family Status - Relation Status Age at Mother Father Level of Service:67233 HI OFFICE/OUTPATIENT ESTABLISHED MOD MDM 30 MIN Normal [facility] Ambulatory Visit Summaryon 0 09-13-2024 Ambulatory Visit Summary Ambulatory Visit Summary JUAN BARCENAS :1935 Visit Date:09/11/2024 Ambulatory Visit Instructions Your Diagnosis Encounter for Medicare annual examination with abnormal findings HTN (hypertension) Iron deficiency anemia Pure hypercholesterolemia Flu vaccine refused Abnormal MMSE Over weight Your Care Team Attending Physician - Erik DALY, Nesha Oliver Primary Care Physician - Gracie RAMIREZ, Isabela Matute This Is Your Medications List amiodarone (amiodarone [...] (1980), Cardioversion. Discharge Vitals Heart Rate (Peripheral) 60 Blood Pressure 138/76 Height 167 cm Height 66 in Weight 78.15 kg Weight 172.291 lb BMI 28.02 What to do next Scheduled Follow-Up Appointments Wednesday 10:40 AM EST With: Isabela Shields Where: [address] [id number]- [id number] 11:00 AM EST With: Where: [address] [address]- Someone Will Contact You Regarding These Appointments [facility] [place] [facility] External Ambulatory Referral, Service not offered at [facility] [place], Neurology, 09/11/24 15:10:00 [...] Medicine revie (more content not included)... Normal [facility] Family Medicine Office/Clini c Noteon 09-13-2024 Family [...] abnormal findings) The patient was present with daughterLydia today and was given a customized and [...] of clutter to prevent tripping and/or falling. [place] Advance Directives reviewed. Documents remain at home, [...] up to date. Blood tests were reviewed: Jazzmine Freeman reports Labs were recently done for cardiology at [facility]. Nurse spoke to [facility], cardiology ordered LIPID Panel and Hepatic labs, they are not all back yet. [facility] will fax to office once all results [...] wellness visits. Patient and daughter agree to [facility] referral. Referral placed. 2. HTN (hypertension) (I10: [...] When y (more content not included)... Normal [facility] Comment on above: Result Comment: Elec tronically Signed By: Isabela Shields\.br\Date and Time Signed: 09/13/24 16:27 EST\.br\Electronically Co-Signed By: Charlette Damian\.br\Date and Time Co-Signed: 09/11/24 15:14 EST Family Medicine Office/Clinic Note Family Medicine Office/Clinic Note HPI Staff Juan is a 89 year old male presenting for medication refill Patient is here for follow up on hypertension. follows with [facility] cardiology had echo [...] provide 2 placards They have 2 vehicles, [id number], Supply, 172.2, cm, 09/13/24 9:56:00 EST, [...] provide 2 placards They have 2 vehicles, [id number], Supply, 172.2, cm, 09/13/24 9:56:00 EST, [...] mg= 1 tab( (more content not included)... Normal [facility] Comment on above: Result Comment: Elec tronically Signed By: Isabela Shields\.br\Date and Time Signed: 09/13/24 10:54 EST Pre-Visit Planningon 025 Pre-Visit Planning Pre-Visit Planning From: Sophia Wong To: Isabela Shields; Sent: 09/12/2024 14:44:18 EST Subject: Pre-Visit Planning Due Date/Time: 09/12/2024 14:44:00 EST Caller Name: JUAN BARCENAS; Caller Number: , Austin Mar. During a pre-visit planning chart review, I [...] feel free to contact me at extension [phone]. Thank you! Sophia Wong LPN Clinical Blood Bank Assistant [place] [address] Extension: [phone] [email or web address] Normal [facility] Office Visiton 09-06-2024 Follow-up visit [id number] Juan Barcenas D 1935 M [facility] Provider Department Center 09/06/2024 SISSY MORALES Family History Problem Relation Age of Onset Stroke Mother Other Father Family Status - Relation Status Age at Mother Father Level of Service:77604 HI OFFICE/OUTPATIENT ESTABLISHED MOD MDM 30 MIN Normal [facility] 37on 05-30-2024 37 *Hold furosemide for 2 days then resume at 40mg daily. *Get lab work done in 1-2 weeks. *We will increase atorvastatin to 40mg daily to better help cholesterol levels. I sent a new prescription of 40mg tablets to the pharmacy. -Will need follow-up cholesterol level/liver function in 3 months *Talk about the WATCHMAN device with family Normal [facility] Office Visiton 05-30-2024 Follow-up visit [id number] Juan Barcenas D 1935 M Date Provider Department Center 05/30/2024 OLIVIA ALBERTS Family History Problem Relation Age of Onset Stroke Mother Other Father Family Status - Relation Status Age at Mother Father Level of Service:42653 HI OFFICE/OUTPATIENT ESTABLISHED MOD MDM 30 MIN Reason for Visit and Comments: Coronary Artery Disease [187] Congestive Heart Failure [127] Valve Disorder [3372] Normal [facility] 36on 05-04-2024 36 Concerning chest x r ay ----- Message ----- From: Olivia Barajas NP Sent: 05/01/2024 3:57 PM EDT To: Francheska Retana MA Subject: RE: Edit CXR looks ok, no changes Gave his daughter the message Normal [facility] Ambulatory Visit Summaryon 1 Ambulatory Visit Summary [...] Follow-Up Appointments Wednesday 11:00 AM EST Where: [place] [address]- Medications What How Much When Instructions Unchanged [...] choosing us for your care. Normal [facility] Family Medicine Office/Clini c Noteon 04-17-2024 Family [...] 6 month follow up. is going to [facility] after this appointment for labs that were [...] unspecified) CMP ordered. will have done at [facility] 3. Diastolic CHF (I50.30: Unspecified diastolic (congestive) heart failure) follow up with cardiology at end of month. is going to [facility] for labs and chest x ray today [...] 12/01/2015 Recorded pneumococcal 13-valent vaccine 12/01/2015 Recorded [facility] Comment on above: Result Comment: Elec tronically Signed By: Isabela Shields\.br\Date and Time Signed: 04/17/24 13:43 EDT Consultation Noteon 12-01-19 24 Consultation Note [id number] [facility] 36on 11-24-2023 36 PT INFORTMED [facility] Echocardiographyon Echocardiography [id number] [facility] Office Visiton 10-19-2023 Follow-up visit [id number] Juan Barcenas 1935 M Date Provider Department Center 10/19/2023 OLIVIA ALBERTS Family History Problem Relation Age of Onset Stroke Mother Other Father Family Status - Relation Status Age at Mother Father Level of Service:58866 HI OFFICE/OUTPATIENT ESTABLISHED MOD MDM 30 MIN Reason for Visit and Comments: Atrial Fibrillation [80] Congestive Heart Failure [127] [facility] Ambulatory Visit Summaryon 0 09-29-2023 Ambulatory [...] Follow-Up Appointments Wednesday 11:00 AM EST Where: [facility] [place] Normal [facility] Family Medicine Office/Clini c Noteon 09-29-2023 [...] of clutter to prevent tripping and/or falling. [place] Advance Directives reviewed, patient has at home, [...] labs completed in fall, request sent to [facility]. Colonoscopy, aged out. Reviewed pain symptoms with patient: patient denies pain symptoms Reviewed all outside providers that patient follows. Last visit summary notes available in chart and/or have been requested. Follow up scheduled, SHERIDAN JO has been scheduled, 09/11/2024 [facility] services explained and offered to patient and [...] follow up visits. Patient follows up with Gastroenterology Nurse Practitioner, last visit notes available in chart (outside records). Cardiac Healthy Nutritional handout reviewed and provided for patient. 5. 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 Patient follows with Dr. Garcia and Dr. Adler of [facility]. Last visit summary notes are available in chart (outside records). Denies concerns with SOB, chest pain or tightness. Taking medications daily as directed. Reviewed Cardiac nutritional recommendations with handout provided. Patient voices understanding with signs and symptoms to monitor for and report to provider. 6. Pure hypercholesterolemia (E78.00: Pur (more content not included)... Normal [facility] Comment on above: Result Comment: Elec [...] signals of the heart. ? An ambulatory gambling monitor to record your heart's activity for [...] Trouble breathing. (more content not included)... Normal [facility] Screenson 09-29-2023 Screens [id number] Normal [facility] ECHOCARDIO M/2D COMPLETEon 0 12-04-2022 ECHOCARDIO M/2D COMPLETE Normal [facility] XR CHEST 2 Von 10-01-2022 XR CHEST 2 V Normal [facility] CBC W MANUAL DIFFon 09-25-19 ANISOCYTOSIS SLIGHT Normal [facility] Comment on above: Performed By: #### C ALEX ####[facility] X[address]ys[address] [place] [address]Dr. Kandilan Escobar ATYPICAL LYMPH # Normal [facility] Comment on above: Performed By: #### C ALEX ####[facility] Axnvmiqtre8537 [place] [address]Dr. Yilan Escobar ATYPICAL LYMPH % Normal [facility] Comment on above: Performed By: #### C ALEX ####[facility] N[address]oghpehrl[address] [place] [address]Dr. Kandilan Escobar BAND # Normal 0.0-0.3 [facility] Comment on above: Performed By: #### C ALEX ####[facility] Fzwemlipmg2442 [place] [address]Dr. Yilan Escobar BAND % Normal 0-5 [facility] Comment on above: Performed By: #### C ALEX ####[facility] Ncbcdazfrz1223 [place] [address]Dr. Yilan Escobar BASOM # 0.00 103/ul Normal 0.00-0.10 [facility] Comment on above: Performed By: #### C ALEX ####[facility] [address] [place], [place] [address]Dr. Amina Escobar BASOM % 0.0 % Critically low 0.2-2.0 [facility] Comment on above: Performed By: #### C ALEX ####[facility] Msjabodett7596 [place] [address]Dr. Yilan Escobar BLAST # Normal [facility] Comment on above: Performed By: #### C ALEX ####[facility] Yojys[address]irf6[address] [place] [id number]. Amina Escobar BLAST % Normal [facility] Comment on above: Performed By: #### C ALEX ####[facility] Srztgzjtgz6180 [place] [id number]. Amina Escobar CORRECTED WBC Normal 4.0-11.0 [facility] Comment on above: Performed By: #### C ALEX ####[facility] Jgxqxwbhaq5[address] [place] [id number]. Amina Escobar EOS # 0.12 103/ul Normal 0.00-0.70 [facility] Comment on above: Performed By: #### C ALEX ####[facility] Fqxlvumpov8383 [place] [address]Dr. Amina Escobar EOS% 2.0 % Normal 0.9-7.0 [facility] Comment on above: Performed By: #### C ALEX ####[facility] Mraqmffayd6928 [place] [id number]. Amina Escobar HCT 37.9 % Critically low 42.0-54.0 [facility] Comment on above: Performed By: #### C ALEX ####[facility] Izzuuahsev6446 [place] [address]Dr. Amina Escobar HGB 11.5 g/dl Critically low 14.0-18.0 [facility] Comment on above: Performed By: #### C ALEX ####[facility] Zfxvgbsljf3920 [place] [id number]. Amina Escobar HYPOCHROMASIA SLIGHT Normal [facility] Comment on above: Performed By: #### C ALEX ####[facility] W[address]ud[address] [place], [place] [address]Dr. Amina Escobar LYMPHM # 0.65 103/ul Critically low 1.20-3.80 [facility] Comment on above: Performed By: #### C ALEX ####[facility] Ifjxfcehol[address] [place], [place] [address]Dr. Amina Escobar LYMPHM% 11.0 % Critically low 20.5-60.0 [facility] Comment on above: Performed By: #### C ALEX ####[facility] Qrtjyfgiqr[address] [place] [address]Dr. Amina Escobar MCH 26.0 pg Normal 25.9-34.0 [facility] Comment on above: Performed By: #### C ALEX ####[facility] Icgcesmknu4828 [place] [address]Dr. Amina Escobar MCHC 30.3 g/dl Normal 29.9-35.2 [facility] Comment on above: Performed By: #### C ALEX ####[facility] Ojhhabqcru[address] [place], [place] [address]Dr. Amina Escobar MCV 85.7 fL Normal 80.0-94.0 [facility] Comment on above: Performed By: #### C ALEX ####[facility] Mdaucodyon[address] [place], [place] [address]Dr. Amina Escobar METAMYELOCYTE # Normal [facility] Comment on above: Performed By: #### C ALEX ####[facility] Ictfarcmjg[address] [place], [place] [address]Dr. Amina Escobar METAMYELOCYTE % Normal [facility] Comment on above: Performed By: #### C ALEX ####[facility] Rsuaouzjfa[address] [place], [place] [address]Dr. Amina Escobar MICROCYTOSIS SLIGHT Normal [facility] Comment on above: Performed By: #### C ALEX ####[facility] Oplirhjlxs[address] [place], [place] [address]Dr. Amina Escobar MONOM# 0.35 103/ul Normal 0.30-0.80 [facility] Comment on above: Performed By: #### C ALEX ####[facility] Mzfqxmufil[address] [place], [place] [address]Dr. Amina Escobar MONOM% 6.0 % Normal 1.7-12.0 [facility] Comment on above: Performed By: #### C ALEX ####[facility] Mcpcdaagdd4809 [place] [id number]. Amina Escobar MPV 11.9 fL Normal 9.5-13.5 [facility] Comment on above: Performed By: #### C ALEX ####[facility] Lqpzhjudkn3618 [place] [id number]. Amina Escobar MYELOCYTE # Normal [facility] Comment on above: Performed By: #### C ALEX ####[facility] Biwzsqfouk2346 [place] [id number]. Amina Escobar MYELOCYTE % Normal [facility] Comment on above: Performed By: #### C ALEX ####[facility] Bvtwkrjgjl2402 [place] [address]Dr. Amina Escobar NRBC Normal [facility] Comment on above: Performed By: #### C ALEX ####[facility] Hogwbbhtlq3723 [place] [id number]. Amina Escobar OVALOCYTES SLIGHT Normal [facility] Comment on above: Performed By: #### C ALEX ####[facility] Lzqmdmyois5870 [place] [id number]. Amina Escobar PLT 185 103/ul Normal 150-450 [facility] Comment on above: Performed By: #### C ALEX ####[facility] Jukynhgydo9877 [place] [id number]. Amina Escobar POIKILOCYTOSIS SLIGHT Normal [facility] Comment on above: Performed By: #### C ALEX ####[facility] Mubypzffxg5677 [place] [id number]. Amina Escobar RBC 4.42 106/ul Critically low 4.70-6.10 [facility] Comment on above: Performed By: #### C ALEX ####[facility] Z[address]awp[address]zi[address] [place], [place] [address]Dr. Amina Escobar RDW 16.4 % Critically high 11.0-15.0 [facility] Comment on above: Performed By: #### C ALEX ####[facility] [address]oz[address]kf[address] [place], [place] [address]Dr. Amina Escobar SEG # 4.78 103/ul Normal 1.40-6.50 [facility] Comment on above: Performed By: #### C BCMAN ####[facility] Iqtbegoqis8750 [place] [address]Dr. Amina Escobar SEG % 81.0 % Critically high 43.0-75.0 [facility] Comment on above: Performed By: #### C BCMAN ####[facility] Fybvugnszi2325 [place] [address]Dr. Amina Escobar WBC 5.9 103/ul Normal 4.0-11.0 [facility] Comment on above: Performed By: #### C MIGDALIAMAN ####[facility] Kapxiqyetd[address] [place], [place] [address]Dr. Amina Escobar PROF CHEM 8 (BAS METB)on Anion gap [Moles/Vol] 8.5 mmol/L Normal [facility] Comment on above: Performed By: #### B MP ####[facility] Rnkzacoead[address] [place], [place] [address]Dr. Amina Escobar Calcium [Mass/Vol] 8.3 mg/dL Critically low 8.5-10.1 [facility] Comment on above: Performed By: #### B MP ####[facility] F[address]vlnyuvs[address] [place], [place] [address]Dr. Amina Escobar Chloride [Moles/Vol] 109 mmol/L Critically high 98-107 [facility] Comment on above: Performed By: #### B MP ####[facility] Ldduqxfurk[address] [place], [place] [address]Dr. Amina Escobar CO2 [Moles/Vol] 29.5 mmol/L Normal 21.0-32.0 [facility] Comment on above: Performed By: #### B MP ####[facility] Kzkrriwfdb[address] [place], [place] [address]Dr. Amina Escobar Creatinine [Mass/Vol] 1.11 mg/dL Normal 0.70-1.30 [facility] Comment on above: Performed By: #### B MP ####[facility] Euarwmxlvr[address] [place], [place] [address]Dr. Kandielda Shawn EGFR-AF TUNISIAN >60 Normal >=60 [facility] Comment on above: Performed By: #### B MP ####[facility] Fmjfigymtg4636 [place] [address]Dr. Kandielda Shawn EGFR-NON AF TUNISIAN >60 Normal >=60 [facility] Comment on above: Performed By: #### B MP ####[facility] Mwqfsawzvz1998 [place] [address]Dr. Amina Escobar Glucose [Mass/Vol] 96 mg/dL Normal 74-106 [facility] Comment on above: Performed By: #### B MP ####[facility] Riqlexcwbc8158 [place] [address]Dr. Amina Escobar Potassium [Moles/Vol] 4.0 mmol/L Normal 3.5-5.1 [facility] Comment on above: Performed By: #### B MP ####[facility] Byovoajfew[address] [place], [place] [address]Dr. Amina Escobar Sodium [Moles/Vol] 143 mmol/L Normal 136-145 [facility] Comment on above: Performed By: #### B MP ####[facility] Ywpovzhyff[address] [place], [place] [address]Dr. Amina Escobar Urea nitrogen [Mass/Vol] 22.0 mg/dL Critically high 7.0-18.0 [facility] Comment on above: Performed By: #### B MP ####[facility] Fnmidv[address]rzp[address] [place], [place] [address]Dr. Amina Escobar Urea nitrogen/Creatinine [Mass ratio] 19.8 mg/mg Normal [facility] Comment on above: Performed By: #### B MP ####[facility] [address]emf[address]zvja[address] [place], [place] [address]Dr. Amina Escobar CBC AUTO DIFFon 08-12-2022 BASO # 0.0 103/ul Normal 0.0-0.1 [facility] Comment on above: Performed By: #### C BC ####[facility] Oedx[address]injo[address] [place], [place] [address]Dr. Amina Escobar Basophils/100 WBC (Bld) 0.7 % Normal 0.2-2.0 [facility] Comment on above: Performed By: #### C BC ####[facility] [address]ztmtzmg[address] [place], [place] [address]Dr. Amina Escobar EO # 0.2 103/ul Normal 0.0-0.7 [facility] Comment on above: Performed By: #### C BC ####[facility] [address]ilexuf[address] [place], [place] [address]Dr. Amina Escobar Eosinophils/100 WBC (Bld) 3.9 % Normal 0.9-7.0 [facility] Comment on above: Performed By: #### C BC ####[facility] Nmikzvjcxf[address] [place], [place] [address]Dr. Amina Escobar Erythrocyte distribution width (RBC) [Ratio] 15.5 % Critically high 11.0-15.0 [facility] Comment on above: Performed By: #### C BC ####[facility] Igwqytjhcg9250[address] [place], [place] [address]Dr. Amina Escobar Hematocrit (Bld) [Volume fraction] 39.3 % Critically low 42.0-54.0 [facility] Comment on above: Performed By: #### C BC ####[facility] Bwpyxypwwh48[address] [place], [place] [address]Dr. Amina Escobar Hemoglobin (Bld) [Mass/Vol] 11.5 g/dL Critically low 14.0-18.0 [facility] Comment on above: Performed By: #### C BC ####[facility] Sztpfpxdov8833[address] [place], [place] [address]Dr. Amina Escobar IG # 0.02 10e3/ul Normal 0.00-0.03 [facility] Comment on above: Performed By: #### C BC ####[facility] Avkakoeidv5733[address] [place], [place] [address]Dr. Amina Escobar IG % 0.4 % Normal 0.0-0.5 [facility] Comment on above: Performed By: #### C BC ####[facility] Uevwgubqke7093[address] [place], [place] [address]DrMemo Escobar LYMPH # 0.6 103/ul Critically low 1.2-3.8 [facility] Comment on above: Performed By: #### C BC ####[facility] [address]qcgcjvl[address] [place] [address]DrMemo Escobar Lymphocytes/100 WBC (Bld) 10.1 % Critically low 20.5-60.0 [facility] Comment on above: Performed By: #### C BC ####[facility] Bazbpijlgv8129[address] [place], [place] [address]DrMemo Escobar MANUAL DIFF REQ NO Normal [facility] Comment on above: Performed By: #### C BC ####[facility] Bcbscbtagn2505[address] [place], [place] [address]DrMemo Escobar MCH (RBC) [Entitic mass] 27.0 pg Normal 25.9-34.0 [facility] Comment on above: Performed By: #### C BC ####[facility] Utxnoxsgjv665[address] [place], [place] [address]DrMemo Escobar MCHC (RBC) [Mass/Vol] 29.3 g/dL Critically low 29.9-35.2 [facility] Comment on above: Performed By: #### C BC ####[facility] Chehfdglcj[address] [place], [place] [address]DrMemo Escobar MCV (RBC) [Entitic vol] 92.3 fL Normal 80.0-94.0 [facility] Comment on above: Performed By: #### C BC ####[facility] Tyjftyjtku4789[address] [place], [place] [address]DrMemo Escobar MONO # 0.5 103/ul Normal 0.3-0.8 [facility] Comment on above: Performed By: #### C BC ####[facility] Hakcxlrjnt55[address] [place], [place] [address]DrMemo Escobar Monocytes/100 WBC (Bld) 9.0 % Normal 1.7-12.0 [facility] Comment on above: Performed By: #### C BC ####[facility] Aswwyfzyuj101[address] [place], [place] [address]DrMemo Escobar NEUT # 4.3 103/ul Normal 1.4-6.5 [facility] Comment on above: Performed By: #### C BC ####[facility] Hjudiuhqkq9840 [place] [address]DrMemo Escobar Neutrophils/100 WBC (Bld) 75.9 % Critically high 43.0-75.0 [facility] Comment on above: Performed By: #### C BC ####[facility] Rjfygogxrg993[address] [place], [place] [address]DrMemo Escobar Platelet mean volume (Bld) [Entitic vol] 11.4 fL Normal 9.5-13.5 [facility] Comment on above: Performed By: #### C BC ####[facility] Spkeviiohl380[address] [place], [place] [address]DrMemo Escobar PLT 216 103/ul Normal 150-450 [facility] Comment on above: Performed By: #### C BC ####[facility] Ctylrvqbac4737[address] [place], [place] [address]DrMemo Escobar RBC 4.26 106/ul Critically low 4.70-6.10 [facility] Comment on above: Performed By: #### C BC ####[facility] Wepqygskso[address] [place], [place] [address]DrMemo Escobar WBC 5.7 103/ul Normal 4.0-11.0 [facility] Comment on above: Performed By: #### C BC ####[facility] Rijpgcgych7910[address] [place], [place] [address]Dr. Amina Escobar PROF CHEM 8 (BAS METB)on Anion gap [Moles/Vol] 11.9 mmol/L Normal [facility] Comment on above: Performed By: #### B MP ####[facility] Sbmivkbapd5490[address] [place], [place] [address]DrMemo Escobar Calcium [Mass/Vol] 8.5 mg/dL Normal 8.5-10.1 [facility] Comment on above: Performed By: #### B MP ####[facility] Ywsnyqctfd7605[address] [place], [place] [address]DrMemo Escobar Chloride [Moles/Vol] 108 mmol/L Critically high 98-107 [facility] Comment on above: Performed By: #### B MP ####[facility] [address]lw[address] [place] [address]Dr. Kandielda Shawn CO2 [Moles/Vol] 30.8 mmol/L Normal 21.0-32.0 [facility] Comment on above: Performed By: #### B MP ####[facility] Ybamszkdao089[address] [place], [place] [address]Dr. Kandielda Shawn Creatinine [Mass/Vol] 1.14 mg/dL Normal 0.70-1.30 [facility] Comment on above: Performed By: #### B MP ####[facility] Aoqatomsjw3787[address] [place], [place] [address]Dr. Amina Escobar EGFR-AF TUNISIAN >60 Normal >=60 [facility] Comment on above: Performed By: #### B MP ####[facility] Mlavshmxsy947[address] [place], [place] [address]Dr. Kandielda Shawn EGFR-NON AF TUNISIAN >60 Normal >=60 [facility] Comment on above: Performed By: #### B MP ####[facility] Dfieimdhms9063[address] [place], [place] [address]Dr. Amina Escobar Glucose [Mass/Vol] 74 mg/dL Normal 74-106 [facility] Comment on above: Performed By: #### B MP ####[facility] Zzvtmjmbdp7913[address] [place], [place] [address]Dr. Amina Escobar Potassium [Moles/Vol] 3.7 mmol/L Normal 3.5-5.1 [facility] Comment on above: Performed By: #### B MP ####[facility] Poirocsdbt583[address] [place], [place] [address]Dr. Amina Escobar Sodium [Moles/Vol] 147 mmol/L Critically high 136-145 [facility] Comment on above: Performed By: #### B MP ####[facility] Lrkdjlshmu1402[address] [place], [place] [address]Dr. Amina Escobar Urea nitrogen [Mass/Vol] 26.0 mg/dL Critically high 7.0-18.0 [facility] Comment on above: Performed By: #### B MP ####[facility] S[address]rjucoz16[address] [place] [address]Dr. Amina Escobar Urea nitrogen/Creatinine [Mass ratio] 22.8 mg/mg Normal [facility] Comment on above: Performed By: #### B MP ####[facility] Mmbqmnfwig2075[address] [place], [place] [address]Dr. Amina Escobar XR CHEST 2 Von 07-28-2022 XR CHEST 2 V Normal [facility] CBC AUTO DIFFon 07-27-2022 BASO # 0.0 103/ul Normal 0.0-0.1 [facility] Comment on above: Performed By: #### C BC ####[facility] Unnbdhqxvj7138[address] [place], [place] [address]Dr. Amina Escobar Basophils/100 WBC (Bld) 0.5 % Normal 0.2-2.0 [facility] Comment on above: Performed By: #### C BC ####[facility] Iojyznzbnp6814[address] [place], [place] [address]Dr. Amina Escobar EO # 0.2 103/ul Normal 0.0-0.7 [facility] Comment on above: Performed By: #### C BC ####[facility] Mlbfrozrzb4309[address] [place], [place] [address]Dr. Amina Escobar Eosinophils/100 WBC (Bld) 2.8 % Normal 0.9-7.0 [facility] Comment on above: Performed By: #### C BC ####[facility] Owytuyijnb9118[address] [place], [place] [address]Dr. Amina Escobar Erythrocyte distribution width (RBC) [Ratio] 15.0 % Normal 11.0-15.0 [facility] Comment on above: Performed By: #### C BC ####[facility] Scvefmvsnk0187[address] [place], [place] [address]Dr. Amina Escobar Hematocrit (Bld) [Volume fraction] 37.0 % Critically low 42.0-54.0 [facility] Comment on above: Performed By: #### C BC ####[facility] [address]oc[address] [place] [id number]. Amina Escobar Hemoglobin (Bld) [Mass/Vol] 11.5 g/dL Critically low 14.0-18.0 [facility] Comment on above: Performed By: #### C BC ####[facility] L[address]vsxcsjcc38[address] [place] [address]Dr. Amina Escobar IG # 0.03 10e3/ul Normal 0.00-0.03 [facility] Comment on above: Performed By: #### C BC ####[facility] Yvlavwvafe5669[address] [place], [place] [address]Dr. Amina Escobar IG % 0.5 % Normal 0.0-0.5 [facility] Comment on above: Performed By: #### C BC ####[facility] Vjjjwfptnc[address] [place], [place] [address]Dr. Amina Escobar LYMPH # 0.6 103/ul Critically low 1.2-3.8 [facility] Comment on above: Performed By: #### C BC ####[facility] Oclrzerntm7967[address] [place], [place] [address]Dr. Amina Escobar Lymphocytes/100 WBC (Bld) 9.2 % Critically low 20.5-60.0 [facility] Comment on above: Performed By: #### C BC ####[facility] Gtslkasind4198[address] [place], [place] [address]Dr. Amina Escobar MANUAL DIFF REQ NO Normal [facility] Comment on above: Performed By: #### C BC ####[facility] Tqzvjncmhl314[address] [place], [place] [address]Dr. Amina Escobar MCH (RBC) [Entitic mass] 27.8 pg Normal 25.9-34.0 [facility] Comment on above: Performed By: #### C BC ####[facility] Qlvfcowhxi5224[address] [place], [place] [address]Dr. Amina Escobar MCHC (RBC) [Mass/Vol] 31.1 g/dL Normal 29.9-35.2 [facility] Comment on above: Performed By: #### C BC ####[facility] Bjxfpqpevx8892 [place] [id number]. Amina Escobar MCV (RBC) [Entitic vol] 89.4 fL Normal 80.0-94.0 [facility] Comment on above: Performed By: #### C BC ####[facility] Ypmjrevsbr37[address] [place] [id number]. Amina Escobar MONO # 0.6 103/ul Normal 0.3-0.8 [facility] Comment on above: Performed By: #### C BC ####[facility] Ytwldcuxiz1442 [place] [id number]. Amina Escobar Monocytes/100 WBC (Bld) 8.6 % Normal 1.7-12.0 [facility] Comment on above: Performed By: #### C BC ####[facility] Yefurodbwv9701 [place] [id number]. Amina Escobar NEUT # 5.1 103/ul Normal 1.4-6.5 [facility] Comment on above: Performed By: #### C BC ####[facility] Clqsjxcjcx8982 [place] [id number]. Amina Escobar Neutrophils/100 WBC (Bld) 78.4 % Critically high 43.0-75.0 [facility] Comment on above: Performed By: #### C BC ####[facility] Btbnwpingn8804 [place] [phone]. Amina Escobar Platelet mean volume (Bld) [Entitic vol] 11.2 fL Normal 9.5-13.5 [facility] Comment on above: Performed By: #### C BC ####[facility] Xdqkhxtavx7808 [place] [id number]. Amina Escobar PLT 239 103/ul Normal 150-450 [facility] Comment on above: Performed By: #### C BC ####[facility] Pgbybdnlpt6187 [place] [id number]. Amina Escobar RBC 4.14 106/ul Critically low 4.70-6.10 [facility] Comment on above: Performed By: #### C BC ####[facility] Fyhrhuyann[address] [place] [address]Dr. Amina Escobar WBC 6.4 103/ul Normal 4.0-11.0 [facility] Comment on above: Performed By: #### C BC ####[facility] Zkwtudjwkf4562[address] [place], [place] [address]Dr. Amina Escobar FREE T4on 07-27-2022 Free T4 [Mass/Vol] 1.31 ng/dL Normal 0.76-1.46 [facility] Comment on above: Performed By: #### F T4 ####[facility] Xnspauvxbu0924[address] [place], [place] [address]Dr. Amina Escobar LIVER PROFILEon 07-27-2022 Albumin [Mass/Vol] 3.5 g/dL Normal 3.4-5.0 [facility] Comment on above: Performed By: #### T SH, LIVER ####[facility] Bzbapubxgh4000[address] [place], [place] [address]Dr. Amina Escobar Albumin/Globulin [Mass ratio] 0.9 {ratio} Normal [facility] Comment on above: Performed By: #### T SH, LIVER ####[facility] Cbqfoyhaod0590[address] [place], [place] [address]Dr. Amina Escobar ALP [Catalytic activity/Vol] 210 U/L Critically high 46-116 [facility] Comment on above: Performed By: #### T SH, LIVER ####[facility] Gnnhfxtoln0103[address] [place], [place] [address]Dr. Amina Escobar ALT [Catalytic activity/Vol] 19 U/L Normal 16-63 [facility] Comment on above: Performed By: #### T SH, LIVER ####[facility] Lpsiolzjvm0088[address] [place], [place] [address]Dr. Amina Escobar AST [Catalytic activity/Vol] 13 U/L Critically low 15-37 [facility] Comment on above: Performed By: #### T SH, LIVER ####[facility] Ybvpaopngz1113[address] [place], [place] [address]Dr. Amina Escobar BILI, CONJUGATED 0.1 mg/dL Normal 0.0-0.2 [facility] Comment on above: Performed By: #### T SH, LIVER ####[facility] Exgcuyvdbz9587 [place] [id number]. Amina Escobar Bilirubin [Mass/Vol] 0.4 mg/dL Normal 0.2-1.0 [facility] Comment on above: Performed By: #### T SH, LIVER ####[facility] Frncuvjnzr8613[address] [place], [place] [address]Dr. Amina Escobar Globulin (S) [Mass/Vol] 3.7 g/dL Normal [facility] Comment on above: Performed By: #### T SH, LIVER ####[facility] Jxxuivnsbr589[address] [place], [place] [address]Dr. Amina Escobar Protein [Mass/Vol] 7.2 g/dL Normal 6.4-8.2 [facility] Comment on above: Performed By: #### T SH, LIVER ####[facility] Jcpxsuexmj4968[address] [place], [place] [address]Dr. Amina Escobar TSHon 07-27-2022 TSH 1.669 uIU/mL Normal 0.358-3.74 0 [facility] Comment on above: Performed By: #### T SH, LIVER ####[facility] Oggbdpwwro6102[address] [place], [place] [address]Dr. Amina Escobar CBC AUTO DIFFon 07-15-2022 BASO # 0.1 103/ul Normal 0.0-0.1 [facility] Comment on above: Performed By: #### C BC ####[facility] Hwmfbarplc9227[address] [place], [place] [address]Dr. Amina Escobar Basophils/100 WBC (Bld) 0.7 % Normal 0.2-2.0 [facility] Comment on above: Performed By: #### C BC ####[facility] Uxdftvggkq1062[address] [place], [place] [address]Dr. Amina Escobar EO # 0.2 103/ul Normal 0.0-0.7 [facility] Comment on above: Performed By: #### C BC ####[facility] Tqvofjmisi669[address] [place], [place] [address]Dr. Amina Escobar Eosinophils/100 WBC (Bld) 2.3 % Normal 0.9-7.0 [facility] Comment on above: Performed By: #### C BC ####[facility] Awujzvckqk9003[address] [place], [place] [address]Dr. Amina Escobar Erythrocyte distribution width (RBC) [Ratio] 15.0 % Normal 11.0-15.0 [facility] Comment on above: Performed By: #### C BC ####[facility] Phzksjvooe9155[address] [place], [place] [address]Dr. Amina Escobar Hematocrit (Bld) [Volume fraction] 34.2 % Critically low 42.0-54.0 [facility] Comment on above: Performed By: #### C BC ####[facility] Kgypeyxstm8732[address] [place], [place] [address]Dr. Amina Escobar Hemoglobin (Bld) [Mass/Vol] 10.6 g/dL Critically low 14.0-18.0 [facility] Comment on above: Performed By: #### C BC ####[facility] Svmoburzvg6989[address] [place], [place] [address]Dr. Amina Escobar IG # 0.03 10e3/ul Normal 0.00-0.03 [facility] Comment on above: Performed By: #### C BC ####[facility] Tkwbmubtzt4154[address] [place], [place] [address]Dr. Amina Escobar IG % 0.4 % Normal 0.0-0.5 [facility] Comment on above: Performed By: #### C BC ####[facility] Rrmiefsydv0867[address] [place], [place] [address]DrMemo Escobar LYMPH # 0.6 103/ul Critically low 1.2-3.8 [facility] Comment on above: Performed By: #### C BC ####[facility] Dgadxljcad47[address] [place], [place] [address]Dr. Amina Escobar Lymphocytes/100 WBC (Bld) 8.8 % Critically low 20.5-60.0 [facility] Comment on above: Performed By: #### C BC ####[facility] Rtetsilnbx5348[address] [place], [place] [address]Dr. Amina Escobar MANUAL DIFF REQ NO Normal [facility] Comment on above: Performed By: #### C BC ####[facility] Tekffpzjpm18[address] [place] [id number] Escobar MCH (RBC) [Entitic mass] 28.9 pg Normal 25.9-34.0 [facility] Comment on above: Performed By: #### C BC ####[facility] Krxxnojpzj8038 [place] [address]DrMemo Escobar MCHC (RBC) [Mass/Vol] 31.0 g/dL Normal 29.9-35.2 [facility] Comment on above: Performed By: #### C BC ####[facility] Fozyunxpha2120[address] [place], [place] [address]DrMemo Escobar MCV (RBC) [Entitic vol] 93.2 fL Normal 80.0-94.0 [facility] Comment on above: Performed By: #### C BC ####[facility] Auopbcgswg9188[address] [place], [place] [address]DrMemo Escobar MONO # 0.6 103/ul Normal 0.3-0.8 [facility] Comment on above: Performed By: #### C BC ####[facility] Tubrddvfac7304[address] [place], [place] [address]DrMemo Escobar Monocytes/100 WBC (Bld) 8.8 % Normal 1.7-12.0 [facility] Comment on above: Performed By: #### C BC ####[facility] Fgniytaalj5989[address] [place], [place] [address]DrMemo Escobar NEUT # 5.6 103/ul Normal 1.4-6.5 [facility] Comment on above: Performed By: #### C BC ####[facility] Ecdqqfmfic696[address] [place], [place] [address]DrMemo Escobar Neutrophils/100 WBC (Bld) 79.0 % Critically high 43.0-75.0 [facility] Comment on above: Performed By: #### C BC ####[facility] Faauvmmwjl3775[address] [place], [place] [address]DrMemo Escobar Platelet mean volume (Bld) [Entitic vol] 10.1 fL Normal 9.5-13.5 [facility] Comment on above: Performed By: #### C BC ####[facility] Sqarhkjtqf45[address] [place] [address]Dr. Amina Escobar PLT 215 103/ul Normal 150-450 [facility] Comment on above: Performed By: #### C BC ####[facility] Zzvhkgqhqv8631 [place] [address]Dr. Amina Escobar RBC 3.67 106/ul Critically low 4.70-6.10 [facility] Comment on above: Performed By: #### C BC ####[facility] Dxisiksycs769[address] [place], [place] [address]Dr. Amina Escobar WBC 7.1 103/ul Normal 4.0-11.0 [facility] Comment on above: Performed By: #### C BC ####[facility] Jmbddrfrcc618[address] [place], [place] [address]Dr. Amina Shawn PRBC LEUKOREDUCEDon 07-09-20 PRBC LEUKOREDUCED Normal [facility] Comment on above: Performed By: #### P RBC, TNS ####[facility] Dphwlzapxs4775[address] [place], [place] [address]Dr. Kandielda Escobar Performed By: #### P RBC ####[facility] Jlileqdvfl732[address] [place], [place] [address]Dr. Kandielda Escobar PRBC LEUKOREDUCED Normal [facility] Comment on above: Performed By: #### P RBC ####[facility] Nsonbugblh7209[address] [place], [place] [address]Dr. Amina Escobar HEMOGLOBIN AND HEMATOCRITon 07-08-2022 Hematocrit (Bld) [Volume fraction] 25.4 % Critically low 42.0-54.0 [facility] Comment on above: Performed By: #### H GBHCT ####[facility] Xsnrrmqrxl230[address] [place], [place] [address]Dr. Kandielda Shawn Hemoglobin (Bld) [Mass/Vol] 7.5 g/dL Critically low 14.0-18.0 [facility] Comment on above: Performed By: #### H GBHCT ####[facility] Ttyjbnvwuc50[address] [place] [address]Dr. Amina Escobar TYPE AND SCREENon 07-08-2022 TYPE AND SCREEN Negative Normal [facility] Comment on above: Performed By: #### P RBC, TNS ####[facility] Rqinkyoafx49[address] [place] [address]Dr. Amina Escobar CBC AUTO DIFFon 07-06-2022 BASO # 0.1 103/ul Normal 0.0-0.1 [facility] Comment on above: Performed By: #### C BC ####[facility] Xemraujvqx395[address] [place], [place] [address]Dr. Amina Escobar Basophils/100 WBC (Bld) 0.8 % Normal 0.2-2.0 [facility] Comment on above: Performed By: #### C BC ####[facility] Xruprepjpi0083[address] [place], [place] [address]Dr. Amina Escobar EO # 0.1 103/ul Normal 0.0-0.7 [facility] Comment on above: Performed By: #### C BC ####[facility] Jodyeqdyty380[address] [place], [place] [address]Dr. Amina Escobar Eosinophils/100 WBC (Bld) 1.8 % Normal 0.9-7.0 [facility] Comment on above: Performed By: #### C BC ####[facility] Sciuutcsaz5386[address] [place], [place] [address]Dr. Amina Escobar Erythrocyte distribution width (RBC) [Ratio] 15.9 % Critically high 11.0-15.0 [facility] Comment on above: Performed By: #### C BC ####[facility] Vfxdskuswi7607[address] [place], [place] [address]Dr. Amina Escobar Hematocrit (Bld) [Volume fraction] 24.7 % Critically low 42.0-54.0 [facility] Comment on above: Performed By: #### C BC ####[facility] Qdizjqkfst9915[address] [place], [place] [address]Dr. Amina Escobar Hemoglobin (Bld) [Mass/Vol] 7.4 g/dL Critically low 14.0-18.0 [facility] Comment on above: Performed By: #### C BC ####[facility] X[address]raksuwc5[address] [place] [address]DrMemo Escobar IG # 0.02 10e3/ul Normal 0.00-0.03 [facility] Comment on above: Performed By: #### C BC ####[facility] Tyqmhpnumz1542 [place] [address]DrMemo Escobar IG % 0.3 % Normal 0.0-0.5 [facility] Comment on above: Performed By: #### C BC ####[facility] Eiqsdwhapy9512 [place] [address]DrMemo Escobar LYMPH # 0.7 103/ul Critically low 1.2-3.8 [facility] Comment on above: Performed By: #### C BC ####[facility] Uhydfcantq6223 [place] [address]DrMemo Escobar Lymphocytes/100 WBC (Bld) 10.6 % Critically low 20.5-60.0 [facility] Comment on above: Performed By: #### C BC ####[facility] Utggrcckdo4784 [place] [address]DrMemo Escobar MANUAL DIFF REQ NO Normal [facility] Comment on above: Performed By: #### C BC ####[facility] Wbdlbbcrus5076 [place] [address]DrMemo Escobar MCH (RBC) [Entitic mass] 29.1 pg Normal 25.9-34.0 [facility] Comment on above: Performed By: #### C BC ####[facility] Pyxxpiyqwa9537 [place] [address]DrMemo Escobar MCHC (RBC) [Mass/Vol] 30.0 g/dL Normal 29.9-35.2 [facility] Comment on above: Performed By: #### C BC ####[facility] Rvoudknbrg2568 [place] [address]DrMemo Escobar MCV (RBC) [Entitic vol] 97.2 fL Critically high 80.0-94.0 [facility] Comment on above: Performed By: #### C BC ####[facility] Tbrjvomupc1546 [place] [address]Dr. Amina Escobar MONO # 0.6 103/ul Normal 0.3-0.8 [facility] Comment on above: Performed By: #### C BC ####[facility] Tpbdqovyaq1262 [place] [address]Dr. Amina Escobar Monocytes/100 WBC (Bld) 9.1 % Normal 1.7-12.0 [facility] Comment on above: Performed By: #### C BC ####[facility] Tjadgoemka7862 [place] [address]Dr. Amina Escobar NEUT # 4.8 103/ul Normal 1.4-6.5 [facility] Comment on above: Performed By: #### C BC ####[facility] Itwjdeivlp6580 [place] [address]Dr. Amina Escobar Neutrophils/100 WBC (Bld) 77.4 % Critically high 43.0-75.0 [facility] Comment on above: Performed By: #### C BC ####[facility] Nqeoxayvye0[address] [place], [place] [address]Dr. Amina Escobar Platelet mean volume (Bld) [Entitic vol] 10.4 fL Normal 9.5-13.5 [facility] Comment on above: Performed By: #### C BC ####[facility] Kxvazcqlmu2794[address] [place], [place] [address]Dr. Amina Escobar PLT 263 103/ul Normal 150-450 [facility] Comment on above: Performed By: #### C BC ####[facility] Uxlvylrtxm[address] [place], [place] [address]Dr. Amina Shawn RBC 2.54 106/ul Critically low 4.70-6.10 [facility] Comment on above: Performed By: #### C BC ####[facility] Aucukdjufv6008 [place] [id number]. Kandielda Shawn WBC 6.1 103/ul Normal 4.0-11.0 [facility] Comment on above: Performed By: #### C BC ####[facility] Xfztfojxhj9527[address] [place], [place] [address]Dr. Amina Escobar HEMOGLOBIN AND HEMATOCRITon 06-23-2022 Hematocrit (Bld) [Volume fraction] 29.2 % Critically low 42.0-54.0 [facility] Comment on above: Performed By: #### H GBHCT ####[facility] Mcvoayoqoj0012[address] [place], [place] [address]Dr. Amina Escobar Hemoglobin (Bld) [Mass/Vol] 9.3 g/dL Critically low 14.0-18.0 [facility] Comment on above: Performed By: #### H GBHCT ####[facility] Ofrbvmmedt6377[address] [place], [place] [address]Dr. Amina Escobar TYPE AND SCREENon 06-23-2022 TYPE AND SCREEN Negative Normal [facility] Comment on above: Performed By: #### T NS ####[facility] Zruqevdzue9688[address] [place], [place] [address]Dr. Amina Escobar CBC AUTO DIFFon 06-22-2022 BASO # 0.0 103/ul Normal 0.0-0.1 [facility] Comment on above: Performed By: #### C BC ####[facility] Ktellvvrvz2688[address] [place], [place] [address]Dr. Amina Shawn Basophils/100 WBC (Bld) 0.7 % Normal 0.2-2.0 [facility] Comment on above: Performed By: #### C BC ####[facility] Dbjykydblo32[address] [place], [place] [address]Dr. Amina Shawn EO # 0.2 103/ul Normal 0.0-0.7 [facility] Comment on above: Performed By: #### C BC ####[facility] Rkbcvvcrxn866[address] [place], [place] [address]Dr. Amina Shawn Eosinophils/100 WBC (Bld) 3.2 % Normal 0.9-7.0 [facility] Comment on above: Performed By: #### C BC ####[facility] Rreslbfgpu7340[address] [place], [place] [address]Dr. Amina Escobar Erythrocyte distribution width (RBC) [Ratio] 15.6 % Critically high 11.0-15.0 [facility] Comment on above: Performed By: #### C BC ####[facility] Lapqwxkaex9805 [place] [address]Dr. Amina Escobar Hematocrit (Bld) [Volume fraction] 24.9 % Critically low 42.0-54.0 [facility] Comment on above: Performed By: #### C BC ####[facility] Qdxwrgcuhc9423[address] [place], [place] [address]Dr. Amina Escobar Hemoglobin (Bld) [Mass/Vol] 7.6 g/dL Critically low 14.0-18.0 [facility] Comment on above: Performed By: #### C BC ####[facility] Aqtiwslbuj2340[address] [place], [place] [address]Dr. Amina Escobar IG # 0.03 10e3/ul Normal 0.00-0.03 [facility] Comment on above: Performed By: #### C BC ####[facility] Jpjitvgjeq101[address] [place], [place] [address]Dr. Amina Escobar IG % 0.5 % Normal 0.0-0.5 [facility] Comment on above: Performed By: #### C BC ####[facility] Ykizxlvyfz3012[address] [place], [place] [address]Dr. Amina Escobar LYMPH # 0.6 103/ul Critically low 1.2-3.8 [facility] Comment on above: Performed By: #### C BC ####[facility] Cuksyyyees9506[address] [place], [place] [address]Dr. Amina Escobar Lymphocytes/100 WBC (Bld) 9.3 % Critically low 20.5-60.0 [facility] Comment on above: Performed By: #### C BC ####[facility] Uvtjxowwal8[address] [place], [place] [address]Dr. Amina Escobar MANUAL DIFF REQ NO Normal [facility] Comment on above: Performed By: #### C BC ####[facility] Hjuszryawr112[address] [place], [place] [address]Dr. Amina Escobar MCH (RBC) [Entitic mass] 30.2 pg Normal 25.9-34.0 [facility] Comment on above: Performed By: #### C BC ####[facility] Mibnelfpxv3351 [place] [address]Dr. Amina Escobar MCHC (RBC) [Mass/Vol] 30.5 g/dL Normal 29.9-35.2 [facility] Comment on above: Performed By: #### C BC ####[facility] Fouybekrbs2042 [place] [address]Dr. Amina Escobar MCV (RBC) [Entitic vol] 98.8 fL Critically high 80.0-94.0 [facility] Comment on above: Performed By: #### C BC ####[facility] Avzplnuwlp7353 [place] [address]Dr. Amina Escobar MONO # 0.4 103/ul Normal 0.3-0.8 [facility] Comment on above: Performed By: #### C BC ####[facility] Futdnisrpu423720 [address] [place], [place] [address]Dr. Amina Shawn Monocytes/100 WBC (Bld) 6.4 % Normal 1.7-12.0 [facility] Comment on above: Performed By: #### C BC ####[facility] Jpyltkbvqz023[address] [place], [place] [address]Dr. Amina Escobar NEUT # 4.8 103/ul Normal 1.4-6.5 [facility] Comment on above: Performed By: #### C BC ####[facility] Vzszjkpapg4585 [place] [address]Dr. Amina Shawn Neutrophils/100 WBC (Bld) 79.9 % Critically high 43.0-75.0 [facility] Comment on above: Performed By: #### C BC ####[facility] Ainewiszlj9058 [place] [address]Dr. Amina Escobar Platelet mean volume (Bld) [Entitic vol] 10.3 fL Normal 9.5-13.5 [facility] Comment on above: Performed By: #### C BC ####[facility] Abzhuelusr3566 [place] [id number]. Amina Escobar PLT 205 103/ul Normal 150-450 [facility] Comment on above: Performed By: #### C BC ####[facility] Fniiygfjdc6710 [place] [id number]. Amina Escobar RBC 2.52 106/ul Critically low 4.70-6.10 [facility] Comment on above: Performed By: #### C BC ####[facility] Dgqwnwyqqr4904[address] [place], [place] [address]Dr. Amina Escobar WBC 5.9 103/ul Normal 4.0-11.0 [facility] Comment on above: Performed By: #### C BC ####[facility] Hxnxceksbu6862[address] [place], [place] [address]Dr. Amina Escobar CBC AUTO DIFFon 06-16-2022 BASO # 0.1 103/ul Normal 0.0-0.1 [facility] Comment on above: Performed By: #### C BC ####[facility] Tuflgxbgff8[address] [place], [place] [address]Dr. Amina Escobar Basophils/100 WBC (Bld) 0.7 % Normal 0.2-2.0 [facility] Comment on above: Performed By: #### C BC ####[facility] Cnwhqhhpvz4[address] [place], [place] [address]Dr. Amina Escobar EO # 0.2 103/ul Normal 0.0-0.7 [facility] Comment on above: Performed By: #### C BC ####[facility] Dgletwylbt1894[address] [place], [place] [address]Dr. Amina Escobar Eosinophils/100 WBC (Bld) 2.7 % Normal 0.9-7.0 [facility] Comment on above: Performed By: #### C BC ####[facility] Hnftdluecr8155[address] [place], [place] [address]Dr. Amina Escobar Erythrocyte distribution width (RBC) [Ratio] 16.5 % Critically high 11.0-15.0 [facility] Comment on above: Performed By: #### C BC ####[facility] Dohvykfswg8903 [place] [address]Dr. Amina Escobar Hematocrit (Bld) [Volume fraction] 28.5 % Critically low 42.0-54.0 [facility] Comment on above: Performed By: #### C BC ####[facility] Llkiddywvv5555 [place] [address]Dr. Amina Escobar Hemoglobin (Bld) [Mass/Vol] 8.6 g/dL Critically low 14.0-18.0 [facility] Comment on above: Performed By: #### C BC ####[facility] Kpzypwveqz0664 [place] [address]Dr. Amina Escobar IG # 0.03 10e3/ul Normal 0.00-0.03 [facility] Comment on above: Performed By: #### C BC ####[facility] Frpvpurend4407 [place] [address]Dr. Amina Escobar IG % 0.4 % Normal 0.0-0.5 [facility] Comment on above: Performed By: #### C BC ####[facility] Xtqevbvuxm0276 [place] [address]Dr. Kandielda Escobar LYMPH # 0.8 103/ul Critically low 1.2-3.8 [facility] Comment on above: Performed By: #### C BC ####[facility] Iyhpokyayq6099 [place] [address]Dr. Kandielda Escobar Lymphocytes/100 WBC (Bld) 11.1 % Critically low 20.5-60.0 [facility] Comment on above: Performed By: #### C BC ####[facility] Zqjofmotry4485 [place] [address]Dr. Kandielda Escobar MANUAL DIFF REQ NO Normal [facility] Comment on above: Performed By: #### C BC ####[facility] Zgcsadidws8055[address] [place], [place] [address]Dr. Amina Escobar MCH (RBC) [Entitic mass] 30.3 pg Normal 25.9-34.0 [facility] Comment on above: Performed By: #### C BC ####[facility] Tayhudzemp3876 [place] [id number]. Amina Escobar MCHC (RBC) [Mass/Vol] 30.2 g/dL Normal 29.9-35.2 [facility] Comment on above: Performed By: #### C BC ####[facility] Mdwtswvlcp4827 [place] [id number]. Amina Escobar MCV (RBC) [Entitic vol] 100.4 fL Critically high 80.0-94.0 [facility] Comment on above: Performed By: #### C BC ####[facility] Nwzbpqxzjz8509[address] [place], [place] [address]Dr. Amina Escobar MONO # 0.6 103/ul Normal 0.3-0.8 [facility] Comment on above: Performed By: #### C BC ####[facility] Agytkezvpt1179[address] [place], [place] [address]Dr. Kandielda Escobar Monocytes/100 WBC (Bld) 8.4 % Normal 1.7-12.0 [facility] Comment on above: Performed By: #### C BC ####[facility] Ylflpzbkvh727[address] [place], [place] [address]Dr. Amina Escobar NEUT # 5.3 103/ul Normal 1.4-6.5 [facility] Comment on above: Performed By: #### C BC ####[facility] Fqbfiyhnqc8999[address] [place], [place] [address]Dr. Amina Escobar Neutrophils/100 WBC (Bld) 76.7 % Critically high 43.0-75.0 [facility] Comment on above: Performed By: #### C BC ####[facility] Jusjkkidny5[address] [place], [place] [id number]. Amina Secobar Platelet mean volume (Bld) [Entitic vol] 9.7 fL Normal 9.5-13.5 [facility] Comment on above: Performed By: #### C BC ####[facility] Pgrysptsjg36[address] [place], [place] [address]Dr. Amina Shawn PLT 216 103/ul Normal 150-450 [facility] Comment on above: Performed By: #### C BC ####[facility] Obkoaflgmo2160 [place] [id number]. Amina Escobar RBC 2.84 106/ul Critically low 4.70-6.10 [facility] Comment on above: Performed By: #### C BC ####[facility] Yelwphdall0419 [place] [id number]. Amina Escobar WBC 6.9 103/ul Normal 4.0-11.0 [facility] Comment on above: Performed By: #### C BC ####[facility] Swflvssbgx0077 [place] [address]Dr. Amina Escobar CBC AUTO DIFFon 06-10-2022 BASO # 0.0 103/ul Normal 0.0-0.1 [facility] Comment on above: Performed By: #### C BC ####[facility] Mmvzzkkmje508[address] [place], [place] [address]Dr. Amina Escobar Basophils/100 WBC (Bld) 0.5 % Normal 0.2-2.0 [facility] Comment on above: Performed By: #### C BC ####[facility] Ekgshgnevx830[address] [place], [place] [address]Dr. Amina Escobar EO # 0.1 103/ul Normal 0.0-0.7 [facility] Comment on above: Performed By: #### C BC ####[facility] Gytkvloqct3670[address] [place], [place] [address]Dr. Amina Escobar Eosinophils/100 WBC (Bld) 2.2 % Normal 0.9-7.0 [facility] Comment on above: Performed By: #### C BC ####[facility] Ztdsklbtvw9709[address] [place], [place] [address]Dr. Amina Escobar Erythrocyte distribution width (RBC) [Ratio] 17.9 % Critically high 11.0-15.0 [facility] Comment on above: Performed By: #### C BC ####[facility] Ovnwxzckri4156[address] [place], [place] [address]Dr. Amina Escobar Hematocrit (Bld) [Volume fraction] 24.5 % Critically low 42.0-54.0 [facility] Comment on above: Performed By: #### C BC ####[facility] Afzxlreprk1918[address] [place], [place] [address]Dr. Amina Escobar Hemoglobin (Bld) [Mass/Vol] 7.9 g/dL Critically low 14.0-18.0 [facility] Comment on above: Performed By: #### C BC ####[facility] Qiifxrpfso1569 [place] [address]Dr. Amina Escobar IG # 0.02 10e3/ul Normal 0.00-0.03 [facility] Comment on above: Performed By: #### C BC ####[facility] Iaeifcnsec8829[address] [place], [place] [address]Dr. Amina Escobar IG % 0.3 % Normal 0.0-0.5 [facility] Comment on above: Performed By: #### C BC ####[facility] Dzojsaxzkd2967[address] [place], [place] [address]Dr. Amina Escobar LYMPH # 0.8 103/ul Critically low 1.2-3.8 [facility] Comment on above: Performed By: #### C BC ####[facility] Lmrsnjhayt[address] [place], [place] [address]Dr. Amina Escobar Lymphocytes/100 WBC (Bld) 12.3 % Critically low 20.5-60.0 [facility] Comment on above: Performed By: #### C BC ####[facility] Sbvezliuae0360[address] [place], [place] [address]Dr. Amina Escobar MANUAL DIFF REQ NO Normal [facility] Comment on above: Performed By: #### C BC ####[facility] Epzdsovvjf1336[address] [place], [place] [address]Dr. Amina Escobar MCH (RBC) [Entitic mass] 31.6 pg Normal 25.9-34.0 [facility] Comment on above: Performed By: #### C BC ####[facility] Jdkwrgvtru3964[address] [place], [place] [address]Dr. Amina Escobar MCHC (RBC) [Mass/Vol] 32.2 g/dL Normal 29.9-35.2 [facility] Comment on above: Performed By: #### C BC ####[facility] Krripwkkqj4268 [place] [id number]. Amina Escobar MCV (RBC) [Entitic vol] 98.0 fL Critically high 80.0-94.0 [facility] Comment on above: Performed By: #### C BC ####[facility] Egwurygfwr4632 [place] [id number]. Amina Escobar MONO # 0.5 103/ul Normal 0.3-0.8 [facility] Comment on above: Performed By: #### C BC ####[facility] Xycbnmcytp5047 [place] [id number]. Amina Escobar Monocytes/100 WBC (Bld) 8.6 % Normal 1.7-12.0 [facility] Comment on above: Performed By: #### C BC ####[facility] Fxnahlrswq8538 [place] [id number]. Amina Escobar NEUT # 4.8 103/ul Normal 1.4-6.5 [facility] Comment on above: Performed By: #### C BC ####[facility] Shyrcbfgly0098 [place] [id number]. Amina Escobar Neutrophils/100 WBC (Bld) 76.1 % Critically high 43.0-75.0 [facility] Comment on above: Performed By: #### C BC ####[facility] Vihhoyezrj3880 [place] [id number]. Amina Escobar Platelet mean volume (Bld) [Entitic vol] 10.4 fL Normal 9.5-13.5 [facility] Comment on above: Performed By: #### C BC ####[facility] Gkltsuezdz4258 [place] [id number]. Amina Escobar PLT 206 103/ul Normal 150-450 [facility] Comment on above: Performed By: #### C BC ####[facility] Csjuniukvl9336 [place] [id number]. Amina Escobar RBC 2.50 106/ul Critically low 4.70-6.10 [facility] Comment on above: Performed By: #### C BC ####[facility] Fgvdwixosj7311 [place] [address]Dr. Amina Escobar WBC 6.3 103/ul Normal 4.0-11.0 [facility] Comment on above: Performed By: #### C BC ####[facility] Quhjyxesaa8418[address] [place], [place] [address]Dr. Amina Escobar HEMOGLOBIN AND HEMATOCRITon 06-10-2022 Hematocrit (Bld) [Volume fraction] 27.8 % Critically low 42.0-54.0 [facility] Comment on above: Performed By: #### H GBHCT ####[facility] Pabkjztpqr3314 [place] [address]Dr. Amina Escobar Hemoglobin (Bld) [Mass/Vol] 9.0 g/dL Critically low 14.0-18.0 [facility] Comment on above: Performed By: #### H GBHCT ####[facility] Hgcaptnbnj1733[address] [place], [place] [address]Dr. Amina Escobar CBC AUTO DIFFon 06-09-2022 BASO # 0.0 103/ul Normal 0.0-0.1 [facility] Comment on above: Performed By: #### C BC ####[facility] Paxgkzyacf7455[address] [place], [place] [address]Dr. Amina Escobar Basophils/100 WBC (Bld) 0.6 % Normal 0.2-2.0 [facility] Comment on above: Performed By: #### C BC ####[facility] Lwhyyyyjlh360[address] [place], [place] [address]Dr. Amina Escobar EO # 0.1 103/ul Normal 0.0-0.7 [facility] Comment on above: Performed By: #### C BC ####[facility] Nqhhrlrwnh6562[address] [place], [place] [address]Dr. Amina Escobar Eosinophils/100 WBC (Bld) 1.8 % Normal 0.9-7.0 [facility] Comment on above: Performed By: #### C BC ####[facility] Vbxcdcgnwv2979[address] [place], [place] [address]Dr. Amina Escobar Erythrocyte distribution width (RBC) [Ratio] 16.9 % Critically high 11.0-15.0 [facility] Comment on above: Performed By: #### C BC ####[facility] Zuojrlajdf6583 [place] [address]DrMemo Escobar Hematocrit (Bld) [Volume fraction] 21.2 % Critically low 42.0-54.0 [facility] Comment on above: Performed By: #### C BC ####[facility] Qahkszwizx5067 [place] [address]DrMemo Escobar Hemoglobin (Bld) [Mass/Vol] 6.4 g/dL Critically low 14.0-18.0 [facility] Comment on above: Performed By: #### C BC ####[facility] Fxdrqzxhow5430[address] [place], [place] [address]DrMemo Escobar IG # 0.03 10e3/ul Normal 0.00-0.03 [facility] Comment on above: Performed By: #### C BC ####[facility] Stjtmoojet7609[address] [place], [place] [address]DrMemo Escobar IG % 0.5 % Normal 0.0-0.5 [facility] Comment on above: Performed By: #### C BC ####[facility] Xnzubrwllr8[address] [place], [place] [address]DrMemo Escobar LYMPH # 0.6 103/ul Critically low 1.2-3.8 [facility] Comment on above: Performed By: #### C BC ####[facility] Boagurrsgw6601[address] [place], [place] [address]DrMemo Escobar Lymphocytes/100 WBC (Bld) 8.9 % Critically low 20.5-60.0 [facility] Comment on above: Performed By: #### C BC ####[facility] Zwczzshbus15[address] [place], [place] [address]DrMemo Escobar MANUAL DIFF REQ NO Normal [facility] [facility] Comment on above: Performed By: #### C BC ####[facility] Vubffjuxgv[address] [place], [place] [address]DrMemo Escobar MCH (RBC) [Entitic mass] 31.1 pg Normal 25.9-34.0 [facility] Comment on above: Performed By: #### C BC ####[facility] [address]qc[address] [place] [address]DrMemo Escobar MCHC (RBC) [Mass/Vol] 30.2 g/dL Normal 29.9-35.2 [facility] Comment on above: Performed By: #### C BC ####[facility] Oadjocqnmw6172 [place] [address]DrMemo Escobar MCV (RBC) [Entitic vol] 102.9 fL Critically high 80.0-94.0 [facility] Comment on above: Performed By: #### C BC ####[facility] Sbvdaaundy85[address] [place], [place] [address]DrMemo Escobar MONO # 0.4 103/ul Normal 0.3-0.8 [facility] Comment on above: Performed By: #### C BC ####[facility] Idghlnstbz1027[address] [place], [place] [address]Dr. Amina Escobar Monocytes/100 WBC (Bld) 6.6 % Normal 1.7-12.0 [facility] Comment on above: Performed By: #### C BC ####[facility] Wvnhuuyiln8[address] [place], [place] [address]DrMemo Escobar NEUT # 5.4 103/ul Normal 1.4-6.5 [facility] Comment on above: Performed By: #### C BC ####[facility] Aakxinzmli53[address] [place], [place] [address]DrMemo Escobar Neutrophils/100 WBC (Bld) 81.6 % Critically high 43.0-75.0 [facility] Comment on above: Performed By: #### C BC ####[facility] Lbreoawpqs1398[address] [place], [place] [address]DrMemo Escobar Platelet mean volume (Bld) [Entitic vol] 9.7 fL Normal 9.5-13.5 [facility] Comment on above: Performed By: #### C BC ####[facility] Grcgiyzefg8629[address] [place], [place] [address]Dr. Amina Escobar PLT 201 103/ul Normal 150-450 [facility] Comment on above: Performed By: #### C BC ####[facility] Ijdpzabgcf8306 [place] [id number]. Amina Escobar RBC 2.06 106/ul Critically low 4.70-6.10 [facility] Comment on above: Performed By: #### C BC ####[facility] Vyzgxplars9[address] [place] [phone]. Amina Escobar WBC 6.6 103/ul Normal 4.0-11.0 [facility] Comment on above: Performed By: #### C BC ####[facility] Encslemjzy0701 [place] [id number]. Amina Escobar TYPE AND SCREENon 06-09-2022 TYPE AND SCREEN Negative Normal [facility] Comment on above: Performed By: #### T NS ####[facility] Hwnqhjnkgb2318[address] [place], [place] [address]Dr. Amina Escobar CBC AUTO DIFFon 06-02-2022 BASO # 0.1 103/ul Normal 0.0-0.1 [facility] Comment on above: Performed By: #### C BC ####[facility] Vbspecyjua0160[address] [place], [place] [address]Dr. Amina Escobar Basophils/100 WBC (Bld) 0.6 % Normal 0.2-2.0 [facility] Comment on above: Performed By: #### C BC ####[facility] Ktklydpvvk5723 [place] [id number]. Amina Escobar EO # 0.2 103/ul Normal 0.0-0.7 [facility] Comment on above: Performed By: #### C BC ####[facility] Ghrfjrmjxi[address] [place], [place] [id number]. Amina Escobar Eosinophils/100 WBC (Bld) 2.5 % Normal 0.9-7.0 [facility] Comment on above: Performed By: #### C BC ####[facility] Djkpwpgisp5212 [place] [id number]. Amina Escobar Erythrocyte distribution width (RBC) [Ratio] 17.6 % Critically high 11.0-15.0 [facility] Comment on above: Performed By: #### C BC ####[facility] Ljxyrlnjbg3072 [place] [address]DrMemo Escobar Hematocrit (Bld) [Volume fraction] 26.6 % Critically low 42.0-54.0 [facility] Comment on above: Performed By: #### C BC ####[facility] Vylvgtwyig[address] [place], [place] [address]DrMemo Escobar Hemoglobin (Bld) [Mass/Vol] 8.2 g/dL Critically low 14.0-18.0 [facility] Comment on above: Performed By: #### C BC ####[facility] Bedeqoooyi4426[address] [place], [place] [address]DrMemo Escobar IG # 0.04 10e3/ul Critically high 0.00-0.03 [facility] Comment on above: Performed By: #### C BC ####[facility] Jzgvcxaold5076[address] [place], [place] [address]DrMemo Escobar IG % 0.5 % Normal 0.0-0.5 [facility] Comment on above: Performed By: #### C BC ####[facility] Wcmomvresh1406[address] [place], [place] [address]DrMemo Escobar LYMPH # 0.7 103/ul Critically low 1.2-3.8 [facility] Comment on above: Performed By: #### C BC ####[facility] Yykgwzhqrr1199[address] [place], [place] [address]DrMemo Escobar Lymphocytes/100 WBC (Bld) 8.5 % Critically low 20.5-60.0 [facility] Comment on above: Performed By: #### C BC ####[facility] Jdakzubktj4044[address] [place], [place] [address]DrMemo Escobar MANUAL DIFF REQ NO Normal [facility] Comment on above: Performed By: #### C BC ####[facility] Xxpdxqizwc8048[address] [place], [place] [address]DrMemo Escobar MCH (RBC) [Entitic mass] 31.7 pg Normal 25.9-34.0 [facility] Comment on above: Performed By: #### C BC ####[facility] Hfoutydwdn9486 [place] [address]DrMemo Escobar MCHC (RBC) [Mass/Vol] 30.8 g/dL Normal 29.9-35.2 [facility] Comment on above: Performed By: #### C BC ####[facility] Ynqpdoqpzk3145 [place] [address]DrMemo sEcobar MCV (RBC) [Entitic vol] 102.7 fL Critically high 80.0-94.0 [facility] Comment on above: Performed By: #### C BC ####[facility] Llovbovxzy7830[address] [place], [place] [address]DrMemo Escobar MONO # 0.6 103/ul Normal 0.3-0.8 [facility] Comment on above: Performed By: #### C BC ####[facility] Ghqzbrgfdz5339[address] [place], [place] [address]DrMemo Escobar Monocytes/100 WBC (Bld) 8.0 % Normal 1.7-12.0 [facility] Comment on above: Performed By: #### C BC ####[facility] Eilegrqpzl9215[address] [place], [place] [address]DrMemo Escobar NEUT # 6.4 103/ul Normal 1.4-6.5 [facility] Comment on above: Performed By: #### C BC ####[facility] Lakjgbqfci427[address] [place], [place] [address]DrMemo Escobar Neutrophils/100 WBC (Bld) 79.9 % Critically high 43.0-75.0 [facility] Comment on above: Performed By: #### C BC ####[facility] Grdepvkmbe4983[address] [place], [place] [address]DrMemo Escobar Platelet mean volume (Bld) [Entitic vol] 10.1 fL Normal 9.5-13.5 [facility] Comment on above: Performed By: #### C BC ####[facility] Fssfatpfzf8645[address] [place], [place] [address]DrMemo Escobar PLT 211 103/ul Normal 150-450 [facility] Comment on above: Performed By: #### C BC ####[facility] Cmnuycltyk7097 [place] [id number]. Amina Escobar RBC 2.59 106/ul Critically low 4.70-6.10 [facility] Comment on above: Performed By: #### C BC ####[facility] Wggnfgtuat5841 [place] [phone]. Amina Escobar WBC 8.0 103/ul Normal 4.0-11.0 [facility] Comment on above: Performed By: #### C BC ####[facility] Zmmnryklyv8305[address] [place], [place] [address]Dr. Amina Escobar CBC W MANUAL DIFFon 05-28-20 22 ANISOCYTOSIS 1+ Normal [facility] Comment on above: Performed By: #### C BCMAN ####[facility] Lpayeaxyzq990020 [address] [place], [place] [address]Dr. Amina Escobar ATYPICAL LYMPH # Normal [facility] Comment on above: Performed By: #### C BCMAN ####[facility] Lubmfungrz50[address] [place], [place] [id number]. Amina Escobar ATYPICAL LYMPH % Normal [facility] Comment on above: Performed By: #### C BCMAN ####[facility] Zhcpyinrvv[address] [place] [phone]. Amina Escobar BAND # 0.0 103/ul Normal 0.0-0.3 [facility] Comment on above: Performed By: #### C BCMAN ####[facility] Yffoyferni2236 [place] [id number]. Amina Escobar BAND % 0 % Normal 0-5 [facility] Comment on above: Performed By: #### C BCMAN ####[facility] Snllnsnkqw4398[address] [place], [place] [address]Dr. Amina Escobar BASOM # 0.06 103/ul Normal 0.00-0.10 [facility] Comment on above: Performed By: #### C BCMAN ####[facility] Nkpcdqucjk5079[address] [place], [place] [address]Dr. Amina Escobar BASOM % 1.0 % Normal 0.2-2.0 [facility] Comment on above: Performed By: #### C BCMAN ####[facility] Ylvvrtwodi0979 [place] [phone]. Amina Escobar BLAST # Normal [facility] Comment on above: Performed By: #### C BCKELLY ####[facility] Lmxiaewcmq2536 [place] [address]Dr. Amina Escobar BLAST % Normal [facility] Comment on above: Performed By: #### C BCKELLY ####[facility] Vortowclfu1976[address] [place], [place] [address]Dr. Amina Escobar CORRECTED WBC Normal 4.0-11.0 [facility] Comment on above: Performed By: #### C ALEX ####[facility] Qiqpwmkadv2553[address] [place], [place] [address]Dr. Amina Escobar EOS # 0.06 103/ul Normal 0.00-0.70 [facility] Comment on above: Performed By: #### C ALEX ####[facility] Kywvjxgilg8624[address] [place], [place] [address]Dr. Amina Escobar EOS% 1.0 % Normal 0.9-7.0 [facility] Comment on above: Performed By: #### C ALEX ####[facility] Kmtetjxolu7865[address] [place], [place] [address]Dr. Amina Escobar HCT 26.6 % Critically low 42.0-54.0 [facility] Comment on above: Performed By: #### C ALEX ####[facility] Ecysdmuqlm367[address] [place], [place] [address]Dr. Amina Escobar HGB 8.5 g/dl Critically low 14.0-18.0 [facility] Comment on above: Performed By: #### C ALEX ####[facility] Ruitqdegmy[address] [place], [place] [address]Dr. Amina Escobar HYPOCHROMASIA 1+ Normal [facility] Comment on above: Performed By: #### C ALEX ####[facility] Txmfyifefh4546 [place] [id number]. Amina Escobar LYMPHM # 0.93 103/ul Critically low 1.20-3.80 [facility] Comment on above: Performed By: #### C ALEX ####[facility] Qmdrzrsegd0745 [place] [address]Dr. Amina Escobar LYMPHM% 15.0 % Critically low 20.5-60.0 [facility] Comment on above: Performed By: #### C ALEX ####[facility] Rhizvywtvw2615 [place] [address]Dr. Amina Escobar MCH 31.3 pg Normal 25.9-34.0 [facility] Comment on above: Performed By: #### C ALEX ####[facility] Gqohiirgul34[address] [place], [place] [address]Dr. Amina Escobar MCHC 32.0 g/dl Normal 29.9-35.2 [facility] Comment on above: Performed By: #### C ALEX ####[facility] Csojxetuiz9086[address] [place], [place] [address]Dr. Amina Escobar MCV 97.8 fL Critically high 80.0-94.0 [facility] Comment on above: Performed By: #### C ALEX ####[facility] Swiwbfwyhr8369[address] [place], [place] [address]Dr. Amina Escobar METAMYELOCYTE # Normal [facility] Comment on above: Performed By: #### C ALEX ####[facility] Ufqrzruzck9306[address] [place], [place] [address]Dr. Amina Escobar METAMYELOCYTE % Normal [facility] Comment on above: Performed By: #### C ALEX ####[facility] Jgynvyvpfj317[address] [place], [place] [address]Dr. Amina Escobar MONOM# 0.50 103/ul Normal 0.30-0.80 [facility] Comment on above: Performed By: #### C ALEX ####[facility] Itpxwbtktw9711 [place] [address]Dr. Amina Escobar MONOM% 8.0 % Normal 1.7-12.0 [facility] Comment on above: Performed By: #### C ALEX ####[facility] Unjgpsfgst4608 [place] [id number]. Amina Escobar MPV 10.2 fL Normal 9.5-13.5 [facility] Comment on above: Performed By: #### C ALEX ####[facility] Rruoabzjqb9673 [place], [place] [address]Zf. Amina Escobar MYELOCYTE # Normal [facility] Comment on above: Performed By: #### C ALEX ####[facility] Svximidmnz6194 [place] [phone]. Amina Escobar MYELOCYTE % Normal [facility] Comment on above: Performed By: #### C ALEX ####[facility] Gqofvirqbq6736 [place] [id number]. Amina Escobar NRBC Normal [facility] Comment on above: Performed By: #### C ALEX ####[facility] Jnwrcwgjyj1173 [place] [id number]. Amina Escobar PLT 194 103/ul Normal 150-450 [facility] Comment on above: Performed By: #### C ALEX ####[facility] Oyvskxawbn6362 [place] [phone]. Amina Escobar RBC 2.72 106/ul Critically low 4.70-6.10 [facility] Comment on above: Performed By: #### C ALEX ####[facility] Ovqeqrwfis2556 [place] [phone]. Amina Escobar RDW 18.6 % Critically high 11.0-15.0 [facility] Comment on above: Performed By: #### C ALEX ####[facility] Ctaxmnpuhc0260 [place] [phone]. Amina Escobar SEG # 4.65 103/ul Normal 1.40-6.50 [facility] Comment on above: Performed By: #### C ALEX ####[facility] Zvgxyzpizt4397 [place] [phone]. Amina Escobar SEG % 75.0 % Normal 43.0-75.0 [facility] Comment on above: Performed By: #### C BCMAN ####[facility] Sjmlrrcyzj6475 [place] [phone]. Amina Escobar WBC 6.2 103/ul Normal 4.0-11.0 [facility] Comment on above: Performed By: #### C BCMAN ####[facility] Gaeslrutun[address] [place], [place] [address]Dr. Amina Escobar TYPE AND SCREENon 05-28-2022 TYPE AND SCREEN Negative Normal [facility] Comment on above: Performed By: #### T NS ####[facility] Ewczhjxgoj5269[address] [place], [place] [address]Dr. mAina Escobar CBC AUTO DIFFon 05-26-2022 BASO # 0.1 103/ul Normal 0.0-0.1 [facility] Comment on above: Performed By: #### C BC ####[facility] Kundzfwnmy[address] [place], [place] [address]Dr. Kandielda Escobar Basophils/100 WBC (Bld) 0.7 % Normal 0.2-2.0 [facility] Comment on above: Performed By: #### C BC ####[facility] Qhrlhysdme0033[address] [place], [place] [address]Dr. Amina Escobar EO # 0.2 103/ul Normal 0.0-0.7 [facility] Comment on above: Performed By: #### C BC ####[facility] Nquezblhzq9306[address] [place], [place] [address]Dr. Amina Shawn Eosinophils/100 WBC (Bld) 3.0 % Normal 0.9-7.0 [facility] Comment on above: Performed By: #### C BC ####[facility] Luzhejuwdd40[address] [place], [place] [id number]. Amina Escobar Erythrocyte distribution width (RBC) [Ratio] 18.9 % Critically high 11.0-15.0 [facility] Comment on above: Performed By: #### C BC ####[facility] Fwejtwwpaa0655[address] [place], [place] [address]Dr. Kandielda Escobar Hematocrit (Bld) [Volume fraction] 25.5 % Critically low 42.0-54.0 [facility] Comment on above: Performed By: #### C BC ####[facility] Fmudfxtysw7113 [place] [address]Dr. Amina Escobar Hemoglobin (Bld) [Mass/Vol] 7.5 g/dL Critically low 14.0-18.0 [facility] Comment on above: Performed By: #### C BC ####[facility] Lxsafrtrmf6440 [place] [address]Dr. Amina Escobar IG # 0.03 10e3/ul Normal 0.00-0.03 [facility] Comment on above: Performed By: #### C BC ####[facility] Bmvvnaostg5078[address] [place], [place] [address]Dr. Amina Escobar IG % 0.4 % Normal 0.0-0.5 [facility] Comment on above: Performed By: #### C BC ####[facility] Flrolrgndr2587[address] [place], [place] [address]Dr. Amina Escobar LYMPH # 0.8 103/ul Critically low 1.2-3.8 [facility] Comment on above: Performed By: #### C BC ####[facility] Bohlixwags1553[address] [place], [place] [address]Dr. Kandielda Escobar Lymphocytes/100 WBC (Bld) 10.4 % Critically low 20.5-60.0 [facility] Comment on above: Performed By: #### C BC ####[facility] Hlkzynpefb3895[address] [place], [place] [address]Dr. Amina Escobar MANUAL DIFF REQ NO Normal [facility] Comment on above: Performed By: #### C BC ####[facility] Ujeztogpvy[address] [place], [place] [address]Dr. Amian Escobar MCH (RBC) [Entitic mass] 29.8 pg Normal 25.9-34.0 [facility] Comment on above: Performed By: #### C BC ####[facility] Tfobabbcbz7786[address] [place], [place] [address]Dr. Amina Escobar MCHC (RBC) [Mass/Vol] 29.4 g/dL Critically low 29.9-35.2 [facility] Comment on above: Performed By: #### C BC ####[facility] Wxydnzebpj3070 [place] [id number]. Amina Escobar MCV (RBC) [Entitic vol] 101.2 fL Critically high 80.0-94.0 [facility] Comment on above: Performed By: #### C BC ####[facility] Eelnsyoksu9236[address] [place], [place] [address]Dr. Amina Escobar MONO # 0.6 103/ul Normal 0.3-0.8 [facility] Comment on above: Performed By: #### C BC ####[facility] Vcqptdffiw7078[address] [place], [place] [address]Dr. mAina Shawn Monocytes/100 WBC (Bld) 8.0 % Normal 1.7-12.0 [facility] Comment on above: Performed By: #### C BC ####[facility] Mbqrqeknae8047[address] [place], [place] [address]Dr. Amina Escobar NEUT # 5.7 103/ul Normal 1.4-6.5 [facility] Comment on above: Performed By: #### C BC ####[facility] Bzipvkzydq842[address] [place], [place] [address]Dr. Amina Shawn Neutrophils/100 WBC (Bld) 77.5 % Critically high 43.0-75.0 [facility] Comment on above: Performed By: #### C BC ####[facility] Cgyqjcfmaf96[address] [place], [place] [address]Dr. Amina Shawn Platelet mean volume (Bld) [Entitic vol] 10.2 fL Normal 9.5-13.5 [facility] Comment on above: Performed By: #### C BC ####[facility] Twjpokuldw887[address] [place], [place] [address]Dr. Amina Escobar PLT 215 103/ul Normal 150-450 [facility] Comment on above: Performed By: #### C BC ####[facility] Gdqlzueowv0062 [place] [id number]. Amina Escobar RBC 2.52 106/ul Critically low 4.70-6.10 [facility] Comment on above: Performed By: #### C BC ####[facility] Ikmddnroxq6573 [place] [address]Dr. Amina Escobar WBC 7.3 103/ul Normal 4.0-11.0 [facility] Comment on above: Performed By: #### C BC ####[facility] Capuemgkhg14[address] [place] [address]Dr. Amina Escobar IRON AND TIBCon 05-26-2022 % SATURATION 13.6 % Normal [facility] Comment on above: Performed By: #### F ETIBC ####[facility] Rfawmejrex156[address] [place], [place] [address]Dr. Amina Escobar Iron [Mass/Vol] 36.0 ug/dL Critically low 65.0-175.0 [facility] Comment on above: Performed By: #### F ETIBC ####[facility] Jbnxpcersc5744[address] [place], [place] [address]Dr. Amina Escobar TIBC DIRECT 265.0 ug/dL Normal 250.0-450. 0 [facility] Comment on above: Performed By: #### F ETIBC ####[facility] Psjckwwjey539[address] [place], [place] [address]Dr. Amina Escobar HEMOGLOBINon 05-18-2022 Hemoglobin (Bld) [Mass/Vol] 8.1 g/dL Critically low 14.0-18.0 [facility] Comment on above: Performed By: #### H GB ####[facility] Moboohcpfa[address] [place], [place] [address]Dr. Amina Escobar CBC W MANUAL DIFFon 05-09-20 22 ATYPICAL LYMPH # Normal [facility] Comment on above: Performed By: #### C BCMAN ####[facility] Ldjwzlknyh[address] [place], [place] [address]Dr. Amina Escobar ATYPICAL LYMPH % Normal [facility] Comment on above: Performed By: #### C BCMAN ####[facility] Abadpbaxqi19[address] [place], [place] [address]Dr. Kandielda Shawn BAND # 0.0 103/ul Normal 0.0-0.3 [facility] Comment on above: Performed By: #### C BCMAN ####[facility] Kgmhlgialq3019 [place] [id number]. Yilan Escobar BAND % 0 % Normal 0-5 [facility] Comment on above: Performed By: #### C BCMAN ####[facility] Wzmvjzrlbb4997 [place] [phone]. Yilan Escobar BASOM # 0.00 103/ul Normal 0.00-0.10 [facility] Comment on above: Performed By: #### C BCMAN ####[facility] Lkkjzgnxro0736 [place] [address]Dr. Yielad Escobar BASOM % 0.0 % Critically low 0.2-2.0 [facility] Comment on above: Performed By: #### C ALEX ####[facility] Tvgmrgpwiy8849[address] [place], [place] [address]Dr. Yilan Escobar BLAST # Normal [facility] Comment on above: Performed By: #### C ALEX ####[facility] Dyfaxthddn20[address] [place], [place] [address]Dr. Yilan Escobar BLAST % Normal [facility] Comment on above: Performed By: #### C BCKELLY ####[facility] Aordmsvpiy503[address] [place], [place] [address]Dr. Amina Escobar CORRECTED WBC Normal 4.0-11.0 [facility] Comment on above: Performed By: #### C BCKELLY ####[facility] [address]ynl[address] [place] [address]Dr. Yilan Escobar EOS # 0.34 103/ul Normal 0.00-0.70 [facility] Comment on above: Performed By: #### C BCKELLY ####[facility] Uqqknwbhlk[address] [place], [place] [address]Dr. Yielda Escobar EOS% 4.0 % Normal 0.9-7.0 [facility] Comment on above: Performed By: #### C BCKELLY ####[facility] Nftlkyajjc[address] [place] [address]Dr. Yilan Escobar HCT 28.2 % Critically low 42.0-54.0 [facility] Comment on above: Performed By: #### C ALEX ####[facility] Tmmverevpy5565 [place], [place] [address]Vv. Amina Escobar HGB 8.8 g/dl Critically low 14.0-18.0 [facility] Comment on above: Performed By: #### C ALEX ####[facility] Mpfdhgajjp0187 [place], [place] [address]Tu. Amina Escobar LYMPHM # 0.17 103/ul Critically low 1.20-3.80 [facility] Comment on above: Performed By: #### C ALEX ####[facility] Ygkqqnsubf024[address] [place] [id number]. Amina Escobar LYMPHM% 2.0 % Critically low 20.5-60.0 [facility] Comment on above: Performed By: #### C ALEX ####[facility] Kkftkryyth7[address] [place] [address]Dr. Amina Escobar MCH 29.2 pg Normal 25.9-34.0 [facility] Comment on above: Performed By: #### C ALEX ####[facility] Ikkrxhujkh0191 [place] [id number]. Amina Escobar MCHC 31.2 g/dl Normal 29.9-35.2 [facility] Comment on above: Performed By: #### C ALEX ####[facility] Cuvvgaagea0514 [place] [address]Dr. Amina Escobar MCV 93.7 fL Normal 80.0-94.0 [facility] Comment on above: Performed By: #### C ALEX ####[facility] Chjnidcbkg1957 [place], [place] [address]Jn. Amina Escobar METAMYELOCYTE # Normal [facility] Comment on above: Performed By: #### C ALEX ####[facility] Euonculkwc2577 [place], [place] [address]Po. Amina Escobar METAMYELOCYTE % Normal [facility] Comment on above: Performed By: #### C ALEX ####[facility] Cevtgaqpbd9685 [place] [id number]. Amina Escobar MONOM# 0.26 103/ul Critically low 0.30-0.80 [facility] Comment on above: Performed By: #### C ALEX ####[facility] Ntofwjdemu3762 [place] [address]Dr. Amina Escobar MONOM% 3.0 % Normal 1.7-12.0 [facility] Comment on above: Performed By: #### C ALEX ####[facility] Tktsnlhilc9004 [place] [address]Dr. Amina Escobar MPV 9.9 fL Normal 9.5-13.5 [facility] Comment on above: Performed By: #### C ALEX ####[facility] Codbiazalc[address] [place], [place] [address]Dr. Amina Escobar MYELOCYTE # Normal [facility] Comment on above: Performed By: #### C ALEX ####[facility] Lvmedvvekb30[address] [place], [place] [address]Dr. Amina Shawn MYELOCYTE % Normal [facility] Comment on above: Performed By: #### C ALEX ####[facility] Psjsmfphft024[address] [place], [place] [address]Dr. Amina Escobar NRBC Normal [facility] Comment on above: Performed By: #### C ALEX ####[facility] Eqfjeaesfn7224[address] [place], [place] [address]Dr. Kandielda Escobar OVALOCYTES 2+ Normal [facility] Comment on above: Performed By: #### C ALEX ####[facility] Uaioskithr9951 [place] [id number]. Amina Escobar PLT 287 103/ul Normal 150-450 [facility] Comment on above: Performed By: #### C ALEX ####[facility] Jmigkekqzj7110[address] [place], [place] [address]Dr. Amina Escobar RBC 3.01 106/ul Critically low 4.70-6.10 [facility] Comment on above: Performed By: #### C ALEX ####[facility] Eukjyhadll6713[address] [place], [place] [address]Dr. Amina Escobar RDW 18.6 % Critically high 11.0-15.0 [facility] Comment on above: Performed By: #### C ALEX ####[facility] Dsegiusxse6038[address] [place], [place] [address]Dr. Amina Escobar SCHISTOCYTES SLIGHT Normal [facility] Comment on above: Performed By: #### C MIGDALIAMAN ####[facility] Nurujmceyr[address] [place], [place] [address]Dr. Amina Escobar SEG # 7.74 103/ul Critically high 1.40-6.50 [facility] Comment on above: Performed By: #### C MIGDALIAMAN ####[facility] Vkvmdmyled8195[address] [place], [place] [address]Dr. Amina Escobar SEG % 91.0 % Critically high 43.0-75.0 [facility] Comment on above: Performed By: #### C ALXE ####[facility] Gscgcldobn5110[address] [place], [place] [address]Dr. Amina Escobar TOXIC GRANULATION 1+ Normal [facility] Comment on above: Performed By: #### C BCKELLY ####[facility] Bwuogomsjs0889[address] [place], [place] [address]Dr. Amina Escobar WBC 8.5 103/ul Normal 4.0-11.0 [facility] Comment on above: Performed By: #### C ALEX ####[facility] Geohdzektd984[address] [place], [place] [address]Dr. Amina Escobar ER URINE PROFILEon 2 Bilirubin Ql (U) Negative Normal NEGATIVE [facility] Comment on above: Performed By: #### E RUR ####[facility] Muwawqrxaa3288[address] [place], [place] [address]Dr. Amina Escobar Clarity (U) CLEAR Normal CLEAR [facility] Comment on above: Performed By: #### E RUR ####[facility] Fxyefecstg2073[address] [place], [place] [address]Dr. Amina Escobar Color (U) LT. YELLOW Normal YELLOW [facility] Comment on above: Performed By: #### E RUR ####[facility] Zjgljaciux2773[address] [place], [place] [address]Dr. Amina GORDILLOD A micrscopic examina tion will be performed if indicated. Normal [facility] Comment on above: Performed By: #### E RUR ####[facility] Rzvcdxqemx0049 [place] [address]Dr. Kandielda Shawn Glucose Ql (U) Negative Normal NEGATIVE [facility] Comment on above: Performed By: #### E RUR ####[facility] Dqnlmqwxet0509[address] [place], [place] [address]Dr. Amina Escobar Hemoglobin Ql (U) Negative Normal NEGATIVE [facility] Comment on above: Performed By: #### E RUR ####[facility] Iectmwykcx0587[address] [place], [place] [address]Dr. Amina Escobar Ketones Ql (U) Negative Normal NEGATIVE [facility] Comment on above: Performed By: #### E RUR ####[facility] Fgrznhfhoz1479[address] [place], [place] [address]Dr. Amina Escobar LEUKOCYTES Negative Normal NEGATIVE [facility] Comment on above: Performed By: #### E RUR ####[facility] Tvmatkclio4080[address] [place], [place] [address]Dr. Amina Escobar Nitrite Ql (U) Negative Normal NEGATIVE [facility] Comment on above: Performed By: #### E RUR ####[facility] Hihzmsmxyz1466[address] [place], [place] [address]Dr. Amina Escobar pH (U) 5.5 [pH] Normal 5-9 [facility] Comment on above: Performed By: #### E RUR ####[facility] Jrxoxclvdx3902[address] [place], [place] [address]Dr. Amina Escobar SPEC GRAVITY 1.010 Normal 1.005-<=1. 025 [facility] Comment on above: Performed By: #### E RUR ####[facility] Aldhcwpdqb1030[address] [place], [place] [address]Dr. Amina Escobar UA PROTEIN Negative Normal NEGATIVE/ TRACE [facility] Comment on above: Performed By: #### E RUR ####[facility] Oggsazdveb4[address] [place], [place] [address]Dr. Amina Escobar UR MICRO IND NOT INDICATED Normal [facility] Comment on above: Performed By: #### E RUR ####[facility] Qzbccbuinq9584 [place] [address]Dr. Amina Escobar Urobilinogen Qn (U) 0.2 {Mel'U}/dL Normal 0.2 - 1. 0 [facility] Comment on above: Performed By: #### E RUR ####[facility] Rwabgxhbci[address] [place], [place] [address]Dr. Amina Escobar FERRITINon 05-09-2022 Ferritin [Mass/Vol] 132.0 ng/mL Normal 26.0-388.0 [facility] Comment on above: Performed By: #### F ERR, FETIBC ####[facility] Gnykqwotcv30[address] [place], [place] [address]Dr. Kandielda Escobar IRON AND TIBCon 05-09-2022 % SATURATION 11.4 % Normal [facility] Comment on above: Performed By: #### F ERR, FETIBC ####[facility] Stigicrryp[address]99[address] [place], [place] [address]Dr. Kandielda Escobar Iron [Mass/Vol] 33.0 ug/dL Critically low 65.0-175.0 [facility] Comment on above: Performed By: #### F ERR, FETIBC ####[facility] Ixhkfvvxkh8754 [place] [address]Dr. Amina Escobar TIBC DIRECT 290.0 ug/dL Normal 250.0-450. 0 [facility] Comment on above: Performed By: #### F ERR, FETIBC ####[facility] Ddvtyvjqdm4238 [place] [address]Dr. Amina Escobar PROF 14(COMP METB)on 022 Albumin [Mass/Vol] 3.1 g/dL Critically low 3.4-5.0 [facility] Comment on above: Performed By: #### C MP ####[facility] Xxmdocuswe[address] [place], [place] [address]Dr. Amina Escobar Albumin/Globulin [Mass ratio] 0.8 {ratio} Normal [facility] Comment on above: Performed By: #### C MP ####[facility] Izzbpozwej3974 [place] [address]Dr. Amina Escobar ALP [Catalytic activity/Vol] 166 U/L Critically high 46-116 [facility] Comment on above: Performed By: #### C MP ####[facility] Fhjoevwhec6291 [place] [address]Dr. Amina Escobar ALT [Catalytic activity/Vol] 22 U/L Normal 16-63 [facility] Comment on above: Performed By: #### C MP ####[facility] Dnbqmgireb1698 [place] [address]Dr. Amina Escobar Anion gap [Moles/Vol] 12.5 mmol/L Normal [facility] Comment on above: Performed By: #### C MP ####[facility] Manfojnxrm3[address] [place], [place] [address]Dr. Amina Escobar AST [Catalytic activity/Vol] 14 U/L Critically low 15-37 [facility] Comment on above: Performed By: #### C MP ####[facility] Xbawrnoclv[address] [place], [place] [address]Dr. Amina Escobar Bilirubin [Mass/Vol] 0.7 mg/dL Normal 0.2-1.0 [facility] Comment on above: Performed By: #### C MP ####[facility] Oibaloylwu[address] [place], [place] [address]Dr. Amina Escobar Calcium [Mass/Vol] 8.5 mg/dL Normal 8.5-10.1 [facility] Comment on above: Performed By: #### C MP ####[facility] Jezfxlskma2733 [place] [address]Dr. Amina Escobar Chloride [Moles/Vol] 108 mmol/L Critically high 98-107 [facility] Comment on above: Performed By: #### C MP ####[facility] Yraxavdgnd7707 [place] [address]Dr. Amina Escobar CO2 [Moles/Vol] 25.7 mmol/L Normal 21.0-32.0 [facility] Comment on above: Performed By: #### C MP ####[facility] Skyfigajmu6586 [place] [id number]. Amina Escobar Creatinine [Mass/Vol] 1.02 mg/dL Normal 0.70-1.30 [facility] Comment on above: Performed By: #### C MP ####[facility] Egnhejffww9767 [place] [id number]. Amina Escobar EGFR-AF TUNISIAN >60 Normal >=60 [facility] Comment on above: Performed By: #### C MP ####[facility] Owlamcxxzy4991 [place] [id number]. Amina Escobar EGFR-NON AF TUNISIAN >60 Normal >=60 [facility] Comment on above: Performed By: #### C MP ####[facility] Vnbyohqwdn230[address] [place], [place] [address]Dr. Amina Escobar Globulin (S) [Mass/Vol] 3.7 g/dL Normal [facility] Comment on above: Performed By: #### C MP ####[facility] Ubbijlwufd5043[address] [place], [place] [address]Dr. Amina Escobar Glucose [Mass/Vol] 97 mg/dL Normal 74-106 [facility] Comment on above: Performed By: #### C MP ####[facility] Qwvuwwsjpb8834[address] [place], [place] [address]Dr. Amina Escobar Potassium [Moles/Vol] 4.2 mmol/L Normal 3.5-5.1 [facility] Comment on above: Performed By: #### C MP ####[facility] Wwkogdhhjm784[address] [place], [place] [address]Dr. Amina Escobar Protein [Mass/Vol] 6.8 g/dL Normal 6.4-8.2 [facility] Comment on above: Performed By: #### C MP ####[facility] Bwmeynxzos1526[address] [place], [place] [address]Dr. Amina Escobar Sodium [Moles/Vol] 142 mmol/L Normal 136-145 [facility] Comment on above: Performed By: #### C MP ####[facility] Nvcniljoak8260 [place] [address]Dr. Amina Escobar Urea nitrogen [Mass/Vol] 23.0 mg/dL Critically high 7.0-18.0 [facility] Comment on above: Performed By: #### C MP ####[facility] Lcmhzkawrc97[address] [place], [place] [address]Dr. Amina Escobar Urea nitrogen/Creatinine [Mass ratio] 22.5 mg/mg Normal [facility] Comment on above: Performed By: #### C MP ####[facility] Eezwkvbqno27[address] [place], [place] [address]Dr. Amina Escobar PROTIMEon 05-09-2022 INR Coag (PPP) [Relative time] 1.16 {INR} Normal [facility] Comment on above: Performed By: #### P TT, PT ####[facility] Cfydiohybm6[address] [place], [place] [address]Dr. Amina Escobar INR GUIDELINES SEE BELOW Normal [facility] Comment on above: Result Comment: LIMA RED INR: 2.0 - 3.0 CONDITIONS NOT LISTED BELOW 2.5 - 3.5 FOR PROSTHETIC HEART VALVE REPLACEMENT 2.5 - 3.5 RECURRENT THROMBOSIS Performed By: #### P TT, PT ####[facility] Nsnvporodf[address] [place], [place] [address]Dr. Amina Escobar PT Coag (PPP) [Time] 12.4 s Critically high 9.0-11.6 [facility] Comment on above: Performed By: #### P TT, PT ####[facility] Shxfhghofs1980[address] [place], [place] [address]Dr. Amina Escobar PTTon 05-09-2022 aPTT Coag (Bld) [Time] 27.7 s Normal 22.3-36.2 [facility] Comment on above: Performed By: #### P TT, PT ####[facility] Jiuvhlvlav9[address] [place], [place] [address]Dr. Amina Escobar VIT B12 AND FOLATEon 022 Cobalamin (Vitamin B12) [Mass/Vol] 403.0 pg/mL Normal 193.0-986. 0 [facility] Comment on above: Performed By: #### B 12FOL ####[facility] Vtjuvhmgew4638 [place] [id number]. Yilan Escobar FOLATE 10.00 ng/mL Normal 8.60-58.90 [facility] Comment on above: Performed By: #### B 12FOL ####[facility] Mzfszhpykx0676 [place] [address]Dr. Yielda Escobar NM GI BLEEDon 05-08-2022 NM GI BLEED Normal [facility] CBC W MANUAL DIFFon 05-06-20 ANISOCYTOSIS 1+ Normal [facility] Comment on above: Performed By: #### C BCKELLY ####[facility] Mceruevosy[address] [place] [address]Dr. Yilan Escobar ATYPICAL LYMPH # Normal [facility] Comment on above: Performed By: #### C ALEX ####[facility] Txnvdyyqny35[address] [place], [place] [address]Dr. Yilan Escobar ATYPICAL LYMPH % Normal [facility] Comment on above: Performed By: #### C ALEX ####[facility] Esydmxjjqw0838[address] [place], [place] [address]Dr. Yilan Escobar BAND # Normal 0.0-0.3 [facility] Comment on above: Performed By: #### C ALEX ####[facility] Jnnlfeyyaq8985 [place] [address]Dr. Yilan Escobar BAND % Normal 0-5 [facility] Comment on above: Performed By: #### C BCKELLY ####[facility] Tuzutuaukn7502 [place] [address]Dr. Yilan Escobar BASOM # 0.00 103/ul Normal 0.00-0.10 [facility] Comment on above: Performed By: #### C ALEX ####[facility] Agtvhsgfrb[address] [place], [place] [address]Dr. Yilan Escobar BASOM % 0.0 % Critically low 0.2-2.0 [facility] Comment on above: Performed By: #### C BCKELLY ####[facility] Jnmpjwcocu4450[address] [place], [place] [address]Dr. Yilan Escobar BLAST # Normal [facility] Comment on above: Performed By: #### C ALEX ####[facility] Bbsgaloiww5110 [place] [id number]. Amina Escobar BLAST % Normal [facility] Comment on above: Performed By: #### C ALEX ####[facility] Bwjmmwwnnh2198 [place] [id number]. Amina Escobar CORRECTED WBC Normal 4.0-11.0 [facility] Comment on above: Performed By: #### C ALEX ####[facility] Vhyamirmfa6373 [place] [id number]. Amina Escobar EOS # 0.39 103/ul Normal 0.00-0.70 [facility] Comment on above: Performed By: #### C ALEX ####[facility] Tpbeikdzgd1066 [place] [address]Dr. Amina Escobar EOS% 5.0 % Normal 0.9-7.0 [facility] Comment on above: Performed By: #### C ALEX ####[facility] Lxdsyermsy[address] [place], [place] [address]Dr. Amina Escobar HCT 26.2 % Critically low 42.0-54.0 [facility] Comment on above: Performed By: #### C ALEX ####[facility] Ydgdpkskji0267 [place] [address]Dr. Amina Escobar HGB 8.1 g/dl Critically low 14.0-18.0 [facility] Comment on above: Performed By: #### C ALEX ####[facility] Kxijjjnhpx7001 [place] [id number]. Amina Escobar LYMPHM # 0.69 103/ul Critically low 1.20-3.80 [facility] Comment on above: Performed By: #### C ALEX ####[facility] Sybkzhxyee6781 [place] [id number]. Amina Escobar LYMPHM% 9.0 % Critically low 20.5-60.0 [facility] Comment on above: Performed By: #### C ALEX ####[facility] Tbfvhaufbt7450 [place] [id number]. Amina Escobar MCH 29.1 pg Normal 25.9-34.0 [facility] Comment on above: Performed By: #### C ALEX ####[facility] Syukytcuxy5482 [place] [id number]. Amina Escobar MCHC 30.9 g/dl Normal 29.9-35.2 [facility] Comment on above: Performed By: #### C ALEX ####[facility] Pqujzrwpyw5537 [place] [id number]. Amina Escobar MCV 94.2 fL Critically high 80.0-94.0 [facility] Comment on above: Performed By: #### C ALEX ####[facility] Javsqdyvcd[address] [place], [place] [address]Dr. Amina Escobar METAMYELOCYTE # Normal [facility] Comment on above: Performed By: #### C ALEX ####[facility] Yurdagzvmq[address] [place], [place] [address]Dr. Amina Escobar METAMYELOCYTE % Normal [facility] Comment on above: Performed By: #### C ALEX ####[facility] Qunrcpjuls[address] [place], [place] [address]Dr. Amina Escobar MONOM# 0.31 103/ul Normal 0.30-0.80 [facility] Comment on above: Performed By: #### C ALEX ####[facility] Iswnrsqzur[address] [place], [place] [address]Dr. Amina Escobar MONOM% 4.0 % Normal 1.7-12.0 [facility] Comment on above: Performed By: #### C ALEX ####[facility] Xggsnzyqug4101 [place] [id number]. Amina Escobar MPV 9.7 fL Normal 9.5-13.5 [facility] Comment on above: Performed By: #### C ALEX ####[facility] Cceacfkkms0383 [place] [id number]. Amina Escobar MYELOCYTE # Normal [facility] Comment on above: Performed By: #### C ALEX ####[facility] Jbdnamtudb0562 [place], [place] [address]Ct. Amina Escobar MYELOCYTE % Normal [facility] Comment on above: Performed By: #### C BCKELLY ####[facility] Vxxpqoadgs5309 [place], [place] [address]Xp. Amina Escobar NRBC Normal [facility] Comment on above: Performed By: #### C ALEX ####[facility] Xcksdbnxsv5365 [place], [place] [address]Hr. Amina Escobar PLT 236 103/ul Normal 150-450 [facility] Comment on above: Performed By: #### C ALEX ####[facility] Lpiaiwupbt3686 [place], [place] [address]Ni. Amina Escobar RBC 2.78 106/ul Critically low 4.70-6.10 [facility] Comment on above: Performed By: #### C ALEX ####[facility] Dljjppofmy0178 [place] [id number]. Amina Escobar RDW 19.4 % Critically high 11.0-15.0 [facility] Comment on above: Performed By: #### C ALEX ####[facility] Eozzhdrxbx4271 [place] [id number]. Amina Escobar SEG # 6.31 103/ul Normal 1.40-6.50 [facility] Comment on above: Performed By: #### C ALEX ####[facility] Mgfyskwpcm5924 [place] [id number]. Amina Escobar SEG % 82.0 % Critically high 43.0-75.0 [facility] Comment on above: Performed By: #### C ALEX ####[facility] Hxxrgaezwd6085 [place], [place] [address]Zw. Amina Escobar WBC 7.7 103/ul Normal 4.0-11.0 [facility] Comment on above: Performed By: #### C ALEX ####[facility] Kbwxylxsbs5442 [place], [place] [address]Mf. Amina Escobar IRONon 05-06-2022 Iron [Mass/Vol] 27.0 ug/dL Critically low 65.0-175.0 [facility] Comment on above: Performed By: #### I PHIL ####[facility] Xcpdxarurw62[address] [place], [place] [address]Dr. Amina Escobar CBC AUTO DIFFon 04-29-2022 BASO # 0.0 103/ul Normal 0.0-0.1 [facility] Comment on above: Performed By: #### C BC ####[facility] Xaioukhexk[address] [place], [place] [address]DrMemo Escobar Basophils/100 WBC (Bld) 0.5 % Normal 0.2-2.0 [facility] Comment on above: Performed By: #### C BC ####[facility] Wotcnllchp[address] [place], [place] [address]DrMemo Escobar EO # 0.3 103/ul Normal 0.0-0.7 [facility] Comment on above: Performed By: #### C BC ####[facility] Qqyzgpiqcw5[address] [place], [place] [address]DrMemo Escobar Eosinophils/100 WBC (Bld) 3.6 % Normal 0.9-7.0 [facility] Comment on above: Performed By: #### C BC ####[facility] Khhcarjodo2377[address] [place], [place] [address]Dr. Amina Escobar Erythrocyte distribution width (RBC) [Ratio] 20.5 % Critically high 11.0-15.0 [facility] Comment on above: Performed By: #### C BC ####[facility] Lscnuireho0637[address] [place], [place] [address]DrMemo Escobar Hematocrit (Bld) [Volume fraction] 30.0 % Critically low 42.0-54.0 [facility] Comment on above: Performed By: #### C BC ####[facility] Xxrnjxclop[address] [place], [place] [address]DrMemo Escobar Hemoglobin (Bld) [Mass/Vol] 9.3 g/dL Critically low 14.0-18.0 [facility] Comment on above: Performed By: #### C BC ####[facility] Kvxhbqbxyg8[address] [place], [place] [address]DrMemo Escobar IG # 0.04 10e3/ul Critically high 0.00-0.03 [facility] Comment on above: Performed By: #### C BC ####[facility] [address] [place] [address]DrMemo Escobar IG % 0.5 % Normal 0.0-0.5 [facility] Comment on above: Performed By: #### C BC ####[facility] Onespfafhb12[address] [place] [address]DrMemo Escobar LYMPH # 0.6 103/ul Critically low 1.2-3.8 [facility] Comment on above: Performed By: #### C BC ####[facility] Etucaxpqzj2972[address] [place], [place] [address]DrMemo Escobar Lymphocytes/100 WBC (Bld) 7.6 % Critically low 20.5-60.0 [facility] Comment on above: Performed By: #### C BC ####[facility] Awvkryuybl033[address] [place], [place] [address]DrMemo Escobar MANUAL DIFF REQ NO Normal [facility] Comment on above: Performed By: #### C BC ####[facility] Oqwbqukseu729[address] [place], [place] [address]DrMemo Escobar MCH (RBC) [Entitic mass] 29.0 pg Normal 25.9-34.0 [facility] Comment on above: Performed By: #### C BC ####[facility] Hayqhbbnxv5745[address] [place], [place] [address]DrMemo Escobar MCHC (RBC) [Mass/Vol] 31.0 g/dL Normal 29.9-35.2 [facility] Comment on above: Performed By: #### C BC ####[facility] Wcmjelidjk[address] [place], [place] [address]DrMemo Escobar MCV (RBC) [Entitic vol] 93.5 fL Normal 80.0-94.0 [facility] Comment on above: Performed By: #### C BC ####[facility] Aggokieadm9867[address] [place], [place] [address]DrMemo Escobar MONO # 0.7 103/ul Normal 0.3-0.8 [facility] Comment on above: Performed By: #### C BC ####[facility] [address] [place] [id number]. Amina Escobar Monocytes/100 WBC (Bld) 7.9 % Normal 1.7-12.0 [facility] Comment on above: Performed By: #### C BC ####[facility] Qewpvwvjvh22[address] [place] [address]Dr. Amina Escobar NEUT # 6.8 103/ul Critically high 1.4-6.5 [facility] Comment on above: Performed By: #### C BC ####[facility] Dgsxlklzdv0243 [place] [address]Dr. Amina Escobar Neutrophils/100 WBC (Bld) 79.9 % Critically high 43.0-75.0 [facility] Comment on above: Performed By: #### C BC ####[facility] Xcqfdmxyat[address] [place], [place] [address]DrMemo Amina Escobar Platelet mean volume (Bld) [Entitic vol] 10.4 fL Normal 9.5-13.5 [facility] Comment on above: Performed By: #### C BC ####[facility] Ffgejqdrwx458[address] [place], [place] [address]Dr. Amina Escobar PLT 202 103/ul Normal 150-450 [facility] Comment on above: Performed By: #### C BC ####[facility] Mjcyzarutp[address] [place], [place] [id number] Amina Escobar RBC 3.21 106/ul Critically low 4.70-6.10 [facility] Comment on above: Performed By: #### C BC ####[facility] Vueskcfhow2967 [place] [id number] Amina Escobar WBC 8.5 103/ul Normal 4.0-11.0 [facility] Comment on above: Performed By: #### C BC ####[facility] Vhocojijni4479[address] [place], [place] [address]DrMemo Kandielda Escobar PROF CHEM 8 (BAS METB)on Anion gap [Moles/Vol] 9.1 mmol/L Normal [facility] Comment on above: Performed By: #### B MP ####[facility] Nhqasulcpg7145[address] [place], [place] [address]Dr. Amina Escobar Calcium [Mass/Vol] 8.0 mg/dL Critically low 8.5-10.1 [facility] Comment on above: Performed By: #### B MP ####[facility] Wdofwwgggk3966[address] [place], [place] [address]Dr. Amina Escobar Chloride [Moles/Vol] 113 mmol/L Critically high 98-107 [facility] Comment on above: Performed By: #### B MP ####[facility] Hbjdhrwphu1617[address] [place], [place] [address]Dr. Amina Escobar CO2 [Moles/Vol] 26.1 mmol/L Normal 21.0-32.0 [facility] Comment on above: Performed By: #### B MP ####[facility] Lkiwbqlpaa0190[address] [place], [place] [address]Dr. Amina Escobar Creatinine [Mass/Vol] 1.33 mg/dL Critically high 0.70-1.30 [facility] Comment on above: Performed By: #### B MP ####[facility] Umjftmjfft0256[address] [place], [place] [address]Dr. Amina Escobar EGFR-AF TUNISIAN >60 Normal >=60 [facility] Comment on above: Performed By: #### B MP ####[facility] Lpppbiiqrn549[address] [place], [place] [address]Dr. Amina Escobar EGFR-NON AF TUNISIAN 51 mL/min/1.73m2 Critically low >=60 [facility] Comment on above: Performed By: #### B MP ####[facility] Yxyvjhejuv213[address] [place], [place] [address]Dr. Amina Escobar Glucose [Mass/Vol] 90 mg/dL Normal 74-106 [facility] Comment on above: Performed By: #### B MP ####[facility] Edxnrgpdpt2406[address] [place], [place] [address]Dr. Amina Escobar Potassium [Moles/Vol] 4.2 mmol/L Normal 3.5-5.1 [facility] Comment on above: Performed By: #### B MP ####[facility] Vdpqxvfenl4128[address] [place], [place] [address]Dr. Amina Escobar Sodium [Moles/Vol] 144 mmol/L Normal 136-145 [facility] Comment on above: Performed By: #### B MP ####[facility] Hvcakggfuf5557[address] [place], [place] [address]Dr. Amina Shawn Urea nitrogen [Mass/Vol] 37.0 mg/dL Critically high 7.0-18.0 [facility] Comment on above: Performed By: #### B MP ####[facility] Wxvjnjkmgk7695[address] [place], [place] [address]Dr. Amina Escobar Urea nitrogen/Creatinine [Mass ratio] 27.8 mg/mg Normal [facility] Comment on above: Performed By: #### B MP ####[facility] Eyptalphjg8396[address] [place], [place] [address]Dr. Amina Escobar PRBC LEUKOREDUCEDon 04-28-20 PRBC LEUKOREDUCED Normal [facility] Comment on above: Performed By: #### P RBC ####[facility] Sbprmbbiye4072[address] [place], [place] [address]Dr. Amina Escobar PRBC LEUKOREDUCED Cross Match Result Compatible Unit Blood Type O Neg Unit Number [id number] Status Information Transfused Product ID Red Blood Cells Product Code [id number] Normal [facility] Comment on above: Performed By: #### P RBC ####[facility] Oenrwwbrgb0201[address] [place], [place] [address]Dr. Amina Shawn CBC AUTO DIFFon 04-27-2022 BASO # 0.0 103/ul Normal 0.0-0.1 [facility] Comment on above: Performed By: #### C BC ####[facility] Qwmdhbgibd9320 [place] [address]Dr. Amina Shawn Basophils/100 WBC (Bld) 0.4 % Normal 0.2-2.0 [facility] Comment on above: Performed By: #### C BC ####[facility] Ld[address]fdvsqz89[address] [place] [id number]. Amina Escobar EO # 0.3 103/ul Normal 0.0-0.7 [facility] Comment on above: Performed By: #### C BC ####[facility] P[address]envxuet3280 [place] [id number]. Amina Escobar Eosinophils/100 WBC (Bld) 3.1 % Normal 0.9-7.0 [facility] Comment on above: Performed By: #### C BC ####[facility] Kmygsbxamc8727[address] [place], [place] [address]Dr. Amina Escobar Erythrocyte distribution width (RBC) [Ratio] 20.3 % Critically high 11.0-15.0 [facility] Comment on above: Performed By: #### C BC ####[facility] Rczsljiftl50[address] [place], [place] [address]Dr. Amina Escobar Hematocrit (Bld) [Volume fraction] 26.5 % Critically low 42.0-54.0 [facility] Comment on above: Performed By: #### C BC ####[facility] Srknzwhukq818[address] [place], [place] [address]Dr. Amina Escobar Hemoglobin (Bld) [Mass/Vol] 8.4 g/dL Critically low 14.0-18.0 [facility] Comment on above: Performed By: #### C BC ####[facility] Enmazdenzj754[address] [place], [place] [address]Dr. Amina Escobar IG # 0.05 10e3/ul Critically high 0.00-0.03 [facility] Comment on above: Performed By: #### C BC ####[facility] Uigbhekqid084[address] [place], [place] [address]Dr. Amina Escobar IG % 0.6 % Critically high 0.0-0.5 [facility] Comment on above: Performed By: #### C BC ####[facility] Jeiqruqppg246[address] [place], [place] [address]Dr. Amina Escobar LYMPH # 0.8 103/ul Critically low 1.2-3.8 [facility] Comment on above: Performed By: #### C BC ####[facility] Bndewfjxtq3667 [place] [id number]. Amina Escobar Lymphocytes/100 WBC (Bld) 9.6 % Critically low 20.5-60.0 [facility] Comment on above: Performed By: #### C BC ####[facility] Yjxmbisurx6037 [place] [id number]. Kandielda Escobar MANUAL DIFF REQ NO Normal [facility] Comment on above: Performed By: #### C BC ####[facility] Pegyjgilix[address] [place], [place] [address]Dr. Amina Shawn MCH (RBC) [Entitic mass] 28.8 pg Normal 25.9-34.0 [facility] Comment on above: Performed By: #### C BC ####[facility] Kjanfcnudx8[address] [place], [place] [address]Dr. Amina Shawn MCHC (RBC) [Mass/Vol] 31.7 g/dL Normal 29.9-35.2 [facility] Comment on above: Performed By: #### C BC ####[facility] Sswjghzrnm[address] [place], [place] [address]Dr. Amina Escobar MCV (RBC) [Entitic vol] 90.8 fL Normal 80.0-94.0 [facility] Comment on above: Performed By: #### C BC ####[facility] Ahznvlaexi6[address] [place], [place] [address]Dr. Amina Shawn MONO # 0.8 103/ul Normal 0.3-0.8 [facility] Comment on above: Performed By: #### C BC ####[facility] Cnhleqtucu8[address] [place], [place] [address]Dr. Amina Shawn Monocytes/100 WBC (Bld) 9.4 % Normal 1.7-12.0 [facility] Comment on above: Performed By: #### C BC ####[facility] Sdgobiisvc766[address] [place], [place] [address]Dr. Amina Escobar NEUT # 6.4 103/ul Normal 1.4-6.5 [facility] Comment on above: Performed By: #### C BC ####[facility] Wkmslsxdgj8550 [place] [id number]. Amina Escobar Neutrophils/100 WBC (Bld) 76.9 % Critically high 43.0-75.0 [facility] Comment on above: Performed By: #### C BC ####[facility] Iojxejvata5056 [place] [id number]. Amina Escobar Platelet mean volume (Bld) [Entitic vol] 10.5 fL Normal 9.5-13.5 [facility] Comment on above: Performed By: #### C BC ####[facility] Mpdlzlqveb8629 [place] [id number]. Amina Escobar PLT 160 103/ul Normal 150-450 [facility] Comment on above: Performed By: #### C BC ####[facility] Crffkxusae8348 [place] [address]Dr. Amina Escobar RBC 2.92 106/ul Critically low 4.70-6.10 [facility] Comment on above: Performed By: #### C BC ####[facility] Nvwrggotda6279 [place] [id number]. Amina Escobar WBC 8.3 103/ul Normal 4.0-11.0 [facility] Comment on above: Performed By: #### C BC ####[facility] Sqhtaucdox3274 [place] [address]Dr. Amina Escobar GLYCOHEMOGLOBIN A1Con 2021 ADA RECOMMENDATION SEE BELOW Normal [facility] Comment on above: Result Comment: ADA RECOMMENDED LIMIT 4.0 - 6.0 ADA THERAPEUTIC TARGET < 7.0 ACTION SUGGESTED > 7.0 Performed By: #### A 1C ####[facility] Ycetpqguag86[address] [place] [address]Dr. Amina Escobar Glucose [Mass/Vol] 111 mg/dL Normal [facility] Comment on above: Performed By: #### A 1C ####[facility] Oktxsftznz7729 [place] [id number]. Amina Escobar HbA1c (Bld) [Mass fraction] 5.5 % Normal 4.5-6.2 [facility] Comment on above: Performed By: #### A 1C ####[facility] Bfjnnqfagl5[address] [place], [place] [address]Dr. Amina Escobar POINT OF CARE GLUCOSEon 04-11 Glucose [Mass/Vol] 195 mg/dL Critically high 74-106 [facility] Comment on above: Performed By: #### P OCGLUC ####[facility] Nrbagpujdv092[address] [place], [place] [address]Dr. Amina Escobar PROF CHEM 8 (BAS METB)on Anion gap [Moles/Vol] 10.0 mmol/L Normal [facility] Comment on above: Performed By: #### B MP ####[facility] Yxibapzbne9178[address] [place], [place] [address]Dr. Amina Escobar Calcium [Mass/Vol] 7.9 mg/dL Critically low 8.5-10.1 Th e [facility] Comment on above: Performed By: #### B MP ####[facility] Yjaffiigqq4337[address] [place], [place] [address]Dr. Amina Escobar Chloride [Moles/Vol] 116 mmol/L Critically high 98-107 [facility] Comment on above: Performed By: #### B MP ####[facility] Skkmmzsccu2025[address] [place], [place] [address]Dr. Amina Escobar CO2 [Moles/Vol] 23.1 mmol/L Normal 21.0-32.0 [facility] Comment on above: Performed By: #### B MP ####[facility] Rnauqxtyzg5047[address] [place], [place] [address]Dr. Amina Escobar Creatinine [Mass/Vol] 1.18 mg/dL Normal 0.70-1.30 [facility] Comment on above: Performed By: #### B MP ####[facility] Bimccvfxip9725[address] [place], [place] [address]Dr. Amina Escobar EGFR-AF TUNISIAN >60 Normal >=60 [facility] Comment on above: Performed By: #### B MP ####[facility] Urqmfnfkif020[address] [place], [place] [address]Dr. Amina Escobar EGFR-NON AF TUNISIAN 59 mL/min/1.73m2 Critically low >=60 [facility] Comment on above: Performed By: #### B MP ####[facility] Cdbloclhfq8767 [place] [address]Dr. Amina Escobar Glucose [Mass/Vol] 100 mg/dL Normal 74-106 [facility] Comment on above: Performed By: #### B MP ####[facility] Bvpkjbohhf8775 [place] [address]Dr. Amina Escobar Potassium [Moles/Vol] 4.1 mmol/L Normal 3.5-5.1 [facility] Comment on above: Performed By: #### B MP ####[facility] Ybeaokaxjr8070[address] [place], [place] [address]Dr. Amina Escobar Sodium [Moles/Vol] 145 mmol/L Normal 136-145 [facility] Comment on above: Performed By: #### B MP ####[facility] Zadpyddyqs[address] [place], [place] [address]Dr. Amina Escobar Urea nitrogen [Mass/Vol] 40.0 mg/dL Critically high 7.0-18.0 [facility] Comment on above: Performed By: #### B MP ####[facility] Orioxxquir6578[address] [place], [place] [address]Dr. Amina Escobar Urea nitrogen/Creatinine [Mass ratio] 33.9 mg/mg Normal [facility] Comment on above: Performed By: #### B MP ####[facility] Bgpyqrddvs1080[address] [place], [place] [address]Dr. Amina Escobar CBC AUTO DIFFon 04-26-2022 BASO # 0.1 103/ul Normal 0.0-0.1 [facility] Comment on above: Performed By: #### C BC ####[facility] Xzhnfjtjnc5696[address] [place], [place] [address]Dr. Amina Escobar Basophils/100 WBC (Bld) 0.6 % Normal 0.2-2.0 [facility] Comment on above: Performed By: #### C BC ####[facility] Fttrazubcm5542[address] [place], [place] [address]Dr. Amina Escobar EO # 0.2 103/ul Normal 0.0-0.7 [facility] Comment on above: Performed By: #### C BC ####[facility] Rbzksezlbi3567 [place] [address]Dr. Amina Escobar Eosinophils/100 WBC (Bld) 2.1 % Normal 0.9-7.0 [facility] Comment on above: Performed By: #### C BC ####[facility] Rhwjgfqrqw[address] [place], [place] [address]Dr. Amina Escobar Erythrocyte distribution width (RBC) [Ratio] 18.6 % Critically high 11.0-15.0 [facility] Comment on above: Performed By: #### C BC ####[facility] Npettiwtpj691[address] [place], [place] [address]Dr. Amina Escobar Hematocrit (Bld) [Volume fraction] 23.6 % Critically low 42.0-54.0 [facility] Comment on above: Performed By: #### C BC ####[facility] Xrggxzrwkz622[address] [place], [place] [address]Dr. Amina Escobar Hemoglobin (Bld) [Mass/Vol] 7.6 g/dL Critically low 14.0-18.0 [facility] Comment on above: Performed By: #### C BC ####[facility] Rbxxznyjnb54[address] [place], [place] [address]Dr. Amina Escobar IG # 0.04 10e3/ul Critically high 0.00-0.03 [facility] Comment on above: Performed By: #### C BC ####[facility] Jinmmwxnnh6017[address] [place], [place] [address]Dr. Amina Escobar IG % 0.5 % Normal 0.0-0.5 [facility] Comment on above: Performed By: #### C BC ####[facility] Zezygbysdx2718[address] [place], [place] [address]DrMemo Chauelda Escobar LYMPH # 0.8 103/ul Critically low 1.2-3.8 [facility] Comment on above: Performed By: #### C BC ####[facility] Bxlwuemljo999[address] [place], [place] [address]Dr. Kandielda Escobar Lymphocytes/100 WBC (Bld) 9.2 % Critically low 20.5-60.0 [facility] Comment on above: Performed By: #### C BC ####[facility] Zfgbwjuffo360[address] [place] [address]Dr. Amina Escobar MANUAL DIFF REQ NO Normal [facility] Comment on above: Performed By: #### C BC ####[facility] Sbvzizvbdt2251 [place] [address]Dr. Amina Escobar MCH (RBC) [Entitic mass] 29.1 pg Normal 25.9-34.0 [facility] Comment on above: Performed By: #### C BC ####[facility] Gvuwkiyyoa5512[address] [place], [place] [address]Dr. Amina Escobar MCHC (RBC) [Mass/Vol] 32.2 g/dL Normal 29.9-35.2 [facility] Comment on above: Performed By: #### C BC ####[facility] Havynhjwdp9[address] [place], [place] [address]Dr. Amina Escobar MCV (RBC) [Entitic vol] 90.4 fL Normal 80.0-94.0 [facility] Comment on above: Performed By: #### C BC ####[facility] Ijwqprfxas1986[address] [place], [place] [address]Dr. Amina Escobar MONO # 0.8 103/ul Normal 0.3-0.8 [facility] Comment on above: Performed By: #### C BC ####[facility] Aurpqcqzmr6307[address] [place], [place] [address]Dr. Amina Escobar Monocytes/100 WBC (Bld) 9.0 % Normal 1.7-12.0 [facility] Comment on above: Performed By: #### C BC ####[facility] Xyftwwlrxy503[address] [place], [place] [address]DrMemo Escobar NEUT # 6.7 103/ul Critically high 1.4-6.5 [facility] Comment on above: Performed By: #### C BC ####[facility] Sbhelkkxaz0769[address] [place], [place] [address]Dr. Amina Escobar Neutrophils/100 WBC (Bld) 78.6 % Critically high 43.0-75.0 [facility] Comment on above: Performed By: #### C BC ####[facility] Tjnssfyxnv9002 [place] [address]Dr. Amina Escobar Platelet mean volume (Bld) [Entitic vol] 10.4 fL Normal 9.5-13.5 [facility] Comment on above: Performed By: #### C BC ####[facility] Kluvalgyaz7648 [place] [address]Dr. Amina Escobar PLT 167 103/ul Normal 150-450 [facility] Comment on above: Performed By: #### C BC ####[facility] Hnleehcjex43[address] [place], [place] [address]Dr. Amina Escobar RBC 2.61 106/ul Critically low 4.70-6.10 [facility] Comment on above: Performed By: #### C BC ####[facility] Cxdhmjgmlr90[address] [place], [place] [address]Dr. Amina Escobar WBC 8.5 103/ul Normal 4.0-11.0 [facility] Comment on above: Performed By: #### C BC ####[facility] Ioixquarux9827[address] [place], [place] [address]Dr. Amina Escobar HEMOGLOBIN AND HEMATOCRITon 04-26-2022 Hematocrit (Bld) [Volume fraction] 28.9 % Critically low 42.0-54.0 [facility] Comment on above: Performed By: #### H GBHCT ####[facility] Ariwgkifbh[address] [place] [address]Dr. Amina Escobar Hemoglobin (Bld) [Mass/Vol] 9.1 g/dL Critically low 14.0-18.0 [facility] Comment on above: Performed By: #### H GBHCT ####[facility] [facility] Lrtukfcels[address] [place] [address]Dr. Amina Escobar POINT OF CARE GLUCOSEon - Glucose [Mass/Vol] 156 mg/dL Critically high 74-106 [facility] Comment on above: Performed By: #### P OCGLUC ####[facility] Phdakrvody[address] [place] [id number]. Kandielda Escobar Glucose [Mass/Vol] 182 mg/dL Critically high 74-106 [facility] Comment on above: Performed By: #### P OCGLUC ####[facility] Xxamknuoqo7060 [place] [id number]. Kandielda Shawn Glucose [Mass/Vol] 185 mg/dL Critically high 74-106 [facility] Comment on above: Performed By: #### P OCGLUC ####[facility] Zrqhznixsk9[address] [place] [address]Dr. Amina Escobar PROF CHEM 8 (BAS METB)on Anion gap [Moles/Vol] 9.4 mmol/L Normal [facility] Comment on above: Performed By: #### B MP ####[facility] Kacssljlxq[address] [place], [place] [address]Dr. Amina Escobar Calcium [Mass/Vol] 7.8 mg/dL Critically low 8.5-10.1 [facility] Comment on above: Performed By: #### B MP ####[facility] Gtwjvvevvw[address] [place], [place] [address]Dr. Amina Escobar Chloride [Moles/Vol] 113 mmol/L Critically high 98-107 [facility] Comment on above: Performed By: #### B MP ####[facility] Ivqjjcnvhn8[address] [place], [place] [address]Dr. Amina Escobar CO2 [Moles/Vol] 24.8 mmol/L Normal 21.0-32.0 [facility] Comment on above: Performed By: #### B MP ####[facility] Nmetggdyia[address] [place], [place] [address]Dr. Amina Escobar Creatinine [Mass/Vol] 1.21 mg/dL Normal 0.70-1.30 [facility] Comment on above: Performed By: #### B MP ####[facility] Elfpssxhxu[address] [place], [place] [address]Dr. Amina Escobar EGFR-AF TUNISIAN >60 Normal >=60 [facility] Comment on above: Performed By: #### B MP ####[facility] Pvlefinosl54[address] [place] [phone]. Amina Shawn EGFR-NON AF TUNISIAN 57 mL/min/1.73m2 Critically low >=60 [facility] Comment on above: Performed By: #### B MP ####[facility] Mlmfazreoe1058 [place] [phone]. Amina Escobar Glucose [Mass/Vol] 95 mg/dL Normal 74-106 [facility] Comment on above: Performed By: #### B MP ####[facility] Prvyumzqta2865 [place] [address]Dr. Amina Escobar Potassium [Moles/Vol] 4.2 mmol/L Normal 3.5-5.1 [facility] Comment on above: Performed By: #### B MP ####[facility] Sojcwtbmhn0623 [place] [address]Dr. Amina Escobar Sodium [Moles/Vol] 143 mmol/L Normal 136-145 [facility] Comment on above: Performed By: #### B MP ####[facility] Bkzgkcbqce7712 [place] [address]Dr. Amina Escobar Urea nitrogen [Mass/Vol] 44.0 mg/dL Critically high 7.0-18.0 [facility] Comment on above: Performed By: #### B MP ####[facility] Umnjqkocuq5[address] [place] [address]Dr. Amina Escobar Urea nitrogen/Creatinine [Mass ratio] 36.4 mg/mg Normal [facility] Comment on above: Performed By: #### B MP ####[facility] Hbymdagyft5710 [place] [address]Dr. Amina Escobar CBC AUTO DIFFon 04-25-2022 Basophils/100 WBC (Bld) 0.5 % Normal 0.2-2.0 [facility] Comment on above: Performed By: #### C BC ####[facility] Jlcyhpzkwe2197 [place] [address]Dr. Amina Escobar EO # 0.1 103/ul Normal 0.0-0.7 [facility] Comment on above: Performed By: #### C BC ####[facility] Douoiiutvx3230 [place] [address]Dr. Amina Escobar Eosinophils/100 WBC (Bld) 1.1 % Normal 0.9-7.0 [facility] Comment on above: Performed By: #### C BC ####[facility] Lcskxidghc7792 [place] [address]Dr. Amina Escobar Erythrocyte distribution width (RBC) [Ratio] 18.4 % Critically high 11.0-15.0 [facility] Comment on above: Performed By: #### C BC ####[facility] Wearmtdzth3551 [place] [address]Dr. Amina Escobar Hematocrit (Bld) [Volume fraction] 23.6 % Critically low 42.0-54.0 [facility] Comment on above: Performed By: #### C BC ####[facility] Rpemtywhmr[address] [place], [place] [address]Dr. Amina Escobar Hemoglobin (Bld) [Mass/Vol] 7.6 g/dL Critically low 14.0-18.0 [facility] Comment on above: Performed By: #### C BC ####[facility] Itizaozwvx8306[address] [place], [place] [address]Dr. Amina Escobar IG # 0.03 10e3/ul Normal 0.00-0.03 [facility] Comment on above: Performed By: #### C BC ####[facility] Gybnmstcgy2226[address] [place], [place] [address]Dr. Amina Escobar IG % 0.4 % Normal 0.0-0.5 [facility] Comment on above: Performed By: #### C BC ####[facility] Iqypnlczdm427[address] [place], [place] [address]Dr. Amina Escobar LYMPH # 0.8 103/ul Critically low 1.2-3.8 [facility] Comment on above: Performed By: #### C BC ####[facility] Ipidkniccm1806[address] [place], [place] [address]Dr. Amina Escobar Lymphocytes/100 WBC (Bld) 9.8 % Critically low 20.5-60.0 [facility] Comment on above: Performed By: #### C BC ####[facility] Enqbtvprse7675 [place] [address]Dr. Amina Escobar MCH (RBC) [Entitic mass] 28.7 pg Normal 25.9-34.0 [facility] Comment on above: Performed By: #### C BC ####[facility] Wuenyvdzti7[address] [place] [address]Dr. Amina Escobar MCHC (RBC) [Mass/Vol] 32.2 g/dL Normal 29.9-35.2 [facility] Comment on above: Performed By: #### C BC ####[facility] Suhjkztacv9194[address] [place], [place] [address]DrMemo Escobar MCV (RBC) [Entitic vol] 89.1 fL Normal 80.0-94.0 [facility] Comment on above: Performed By: #### C BC ####[facility] Ispugatbbq2333[address] [place], [place] [address]DrMemo Escobar MONO # 0.7 103/ul Normal 0.3-0.8 [facility] Comment on above: Performed By: #### C BC ####[facility] Zcmrxjnsgo09[address] [place], [place] [address]DrMemo Escobar Monocytes/100 WBC (Bld) 8.1 % Normal 1.7-12.0 [facility] Comment on above: Performed By: #### C BC ####[facility] Ullrenimjk4[address] [place], [place] [address]DrMemo Escobar NEUT # 6.7 103/ul Critically high 1.4-6.5 [facility] Comment on above: Performed By: #### C BC ####[facility] Ozckxqudwm260[address] [place], [place] [address]DrMemo Escobar Neutrophils/100 WBC (Bld) 80.1 % Critically high 43.0-75.0 [facility] Comment on above: Performed By: #### C BC ####[facility] Vkcmresfqh6239[address] [place], [place] [address]DrMemo Escobar Platelet mean volume (Bld) [Entitic vol] 10.6 fL Normal 9.5-13.5 [facility] Comment on above: Performed By: #### C BC ####[facility] Ffxlrqoqcx4634 [place] [address]Dr. Amina Escobar PLT 183 103/ul Normal 150-450 [facility] Comment on above: Performed By: #### C BC ####[facility] Tzlvmagiyl2495 [place] [address]Dr. Amina Escobar RBC 2.65 106/ul Critically low 4.70-6.10 [facility] Comment on above: Performed By: #### C BC ####[facility] Qpxzokifxw6976[address] [place], [place] [address]Dr. Amina Escobar WBC 8.4 103/ul Normal 4.0-11.0 [facility] Comment on above: Performed By: #### C BC ####[facility] Xpbootksas0250[address] [place], [place] [address]Dr. Amina Escobar CBC W MANUAL DIFFon 04-25-20 22 ATYPICAL LYMPH # Normal [facility] Comment on above: Performed By: #### C BCMAN ####[facility] Wlwnhtuwto74[address] [place], [place] [address]Dr. Amina Escobar ATYPICAL LYMPH % Normal [facility] Comment on above: Performed By: #### C BCMAN ####[facility] Tevgltxljn6080[address] [place], [place] [address]Dr. Amina Escobar BAND # 0.2 103/ul Normal 0.0-0.3 [facility] Comment on above: Performed By: #### C BCMAN ####[facility] Btijhcdghi24[address] [place], [place] [address]Dr. Amina Shawn BAND % 2 % Normal 0-5 [facility] Comment on above: Performed By: #### C BCMAN ####[facility] Akittorhyy1866[address] [place], [place] [address]Dr. Amina Escobar BASOM # 0.00 103/ul Normal 0.00-0.10 [facility] Comment on above: Performed By: #### C BCMAN ####[facility] Dktgdhsnnu40[address] [place] [phone]. Amina Escobar BASOM % 0.0 % Critically low 0.2-2.0 [facility] Comment on above: Performed By: #### C BCMAN ####[facility] Xcsopvyurp4[address] [place] [phone]. Amina Escobar BLAST # Normal [facility] Comment on above: Performed By: #### C BCKELLY ####[facility] Fiykibkqlk119[address] [place] [address]Dr. Amina Escobar BLAST % Normal [facility] Comment on above: Performed By: #### C BCKELLY ####[facility] Preuulwiiu23[address] [place], [place] [address]Dr. Amina Escobar CORRECTED WBC Normal 4.0-11.0 [facility] Comment on above: Performed By: #### C ALEX ####[facility] Uhcffyuxph14[address] [place], [place] [address]Dr. Amina Escobar EOS # 0.23 103/ul Normal 0.00-0.70 [facility] Comment on above: Performed By: #### C BCKELLY ####[facility] Iwiqycaiiz[address] [place], [place] [address]Dr. Amina Escobar EOS% 3.0 % Normal 0.9-7.0 [facility] Comment on above: Performed By: #### C BCKELLY ####[facility] Aeivvcbjfy0053 [place] [address]Dr. Amina Escobar HCT 22.4 % Critically low 42.0-54.0 [facility] Comment on above: Performed By: #### C BCKELLY ####[facility] Zquqmybcdd2525 [place] [phone]. Amina Escobar HGB 7.2 g/dl Critically low 14.0-18.0 [facility] Comment on above: Performed By: #### C BCKELLY ####[facility] Hvvevvgcch09[address] [place], [place] [address]Dr. Amina Escobar LYMPHM # 0.70 103/ul Critically low 1.20-3.80 [facility] Comment on above: Performed By: #### C ALEX ####[facility] Hyvdbvpbby84[address] [place] [phone]. Amina Escobar LYMPHM% 9.0 % Critically low 20.5-60.0 [facility] Comment on above: Performed By: #### C ALEX ####[facility] Cbtrfpikej8247 [place] [phone]. Amina Escobar MCH 28.9 pg Normal 25.9-34.0 [facility] Comment on above: Performed By: #### C ALEX ####[facility] Aakoexpkzc1925 [place] [phone]. Amina Escobar MCHC 32.1 g/dl Normal 29.9-35.2 [facility] Comment on above: Performed By: #### Florence JOHNSON ####[facility] Dpificgaiz4333 [place] [phone]. Amina Escobar MCV 90.0 fL Normal 80.0-94.0 [facility] Comment on above: Performed By: #### Florence JOHNSON ####[facility] Rdylhicyag6893 [place] [phone]. Amina Escobar METAMYELOCYTE # Normal [facility] Comment on above: Performed By: #### Florence JOHNSON ####[facility] Wbfcosmewc6324 [place] [phone]. Amina Escobar METAMYELOCYTE % Normal [facility] Comment on above: Performed By: #### Florence JOHNSON ####[facility] Vtfiywxnjy4230 [place] [phone]. Amina Escobar MONOM# 0.39 103/ul Normal 0.30-0.80 [facility] Comment on above: Performed By: #### Florence JOHNSON ####[facility] Uwubkujhsz1458 [place] [phone]. Amina Escobar MONOM% 5.0 % Normal 1.7-12.0 [facility] Comment on above: Performed By: #### Florence JOHNSON ####[facility] Nczqtyeqao3278 [place] [address]Dr. Amina Escobar MPV 10.9 fL Normal 9.5-13.5 [facility] Comment on above: Performed By: #### C ALEX ####[facility] Kovfjvxvuu[address] [place] [phone]. Amina Escobar MYELOCYTE # 0.2 103/ul Normal [facility] Comment on above: Performed By: #### C ALEX ####[facility] Ycfmmigmtj6803 [place] [phone]. Amina Escobar MYELOCYTE % 2 % Normal [facility] Comment on above: Performed By: #### C ALEX ####[facility] Mgemcuvekb3894 [place] [phone]. Amina Escobar NRBC Normal [facility] Comment on above: Performed By: #### C ALEX ####[facility] Zkuvgyhiaz1832 [place] [phone]. Amina Escobar OVALOCYTES 1+ Normal [facility] Comment on above: Performed By: #### C ALEX ####[facility] Jxllqhqfxs2555 [place] [phone]. Amina Escobar PLT 163 103/ul Normal 150-450 [facility] Comment on above: Performed By: #### C ALEX ####[facility] Knmmqvlghv9162 [place] [phone]. Amina Escobar RBC 2.49 106/ul Critically low 4.70-6.10 [facility] Comment on above: Performed By: #### Florence JOHNSON ####[facility] Dlapgqaytr3456 [place] [phone]. Amina Escobar RDW 18.4 % Critically high 11.0-15.0 [facility] Comment on above: Performed By: #### C ALEX ####[facility] Dzmacnlrph[address] [place], [place] [address]Dr. Amina Escobar SEG # 6.16 103/ul Normal 1.40-6.50 [facility] Comment on above: Performed By: #### C ALEX ####[facility] Myusexzklg1872 [place] [phone]. Amina Escobar SEG % 79.0 % Critically high 43.0-75.0 [facility] Comment on above: Performed By: #### C BCMAN ####[facility] Jjzwnlsqdh3967 [place] [address]Dr. Amina Escobar WBC 7.8 103/ul Normal 4.0-11.0 [facility] Comment on above: Performed By: #### C BCMAN ####[facility] Dokagbxwin8272 [place] [address]Dr. Amina Escobar HEMOGLOBIN AND HEMATOCRITon 04-25-2022 Hematocrit (Bld) [Volume fraction] 27.1 % Critically low 42.0-54.0 [facility] Comment on above: Performed By: #### H GBHCT ####[facility] Zvghnziimr6[address] [place], [place] [address]Dr. Amina Escobar Hemoglobin (Bld) [Mass/Vol] 8.7 g/dL Critically low 14.0-18.0 [facility] Comment on above: Performed By: #### H GBHCT ####[facility] Xsjcqpcxvc00[address] [place], [place] [address]Dr. Amina Escobar POINT OF CARE GLUCOSEon 04-11 Glucose [Mass/Vol] 124 mg/dL Critically high 74-106 [facility] Comment on above: Performed By: #### P OCGLUC ####[facility] Irtbtfyicn[address] [place], [place] [address]Dr. Amina Escobar Glucose [Mass/Vol] 102 mg/dL Normal 74-106 [facility] Comment on above: Performed By: #### P OCGLUC ####[facility] Xlemcmydnd269[address] [place], [place] [address]Dr. Amina Escobar Glucose [Mass/Vol] 108 mg/dL Critically high 74-106 [facility] Comment on above: Performed By: #### P OCGLUC ####[facility] Brrfndmnqv4035[address] [place], [place] [address]Dr. Amina Escobar Glucose [Mass/Vol] 120 mg/dL Critically high 74-106 [facility] Comment on above: Performed By: #### P OCGLUC ####[facility] Eqkdybmmje8783 [place] [phone]. Amina Escobar PROF CHEM 8 (BAS METB)on Anion gap [Moles/Vol] 13.2 mmol/L Normal [facility] Comment on above: Performed By: #### B MP ####[facility] Lifvmsnvhr8496 [place] [address]Dr. Amian Escobar Calcium [Mass/Vol] 8.1 mg/dL Critically low 8.5-10.1 [facility] Comment on above: Performed By: #### B MP ####[facility] Wrtmrjhtvr9278 [place] [address]Dr. Amina Escobar Chloride [Moles/Vol] 111 mmol/L Critically high 98-107 [facility] Comment on above: Performed By: #### B MP ####[facility] Ukgxxadbjg8066 [place] [address]Dr. Amina Escobar CO2 [Moles/Vol] 26.0 mmol/L Normal 21.0-32.0 [facility] Comment on above: Performed By: #### B MP ####[facility] Dqbwnjijsc[address] [place], [place] [address]Dr. Amina Escobar Creatinine [Mass/Vol] 1.46 mg/dL Critically high 0.70-1.30 [facility] Comment on above: Performed By: #### B MP ####[facility] Zqivratvls[address] [place], [place] [address]Dr. Amina Escobar EGFR-AF TUNISIAN 56 mL/min/1.73m2 Critically low >=60 [facility] Comment on above: Performed By: #### B MP ####[facility] Mvcvzfltdi3156 [place] [address]Dr. Amina Escobar EGFR-NON AF TUNISIAN 46 mL/min/1.73m2 Critically low >=60 [facility] Comment on above: Performed By: #### B MP ####[facility] Rhdseiutfy194[address] [place], [place] [address]Dr. Amina Escobar Glucose [Mass/Vol] 107 mg/dL Critically high 74-106 [facility] Comment on above: Performed By: #### B MP ####[facility] Kixrdeoqvq2[address] [place], [place] [address]Dr. Amina Escobar Potassium [Moles/Vol] 4.2 mmol/L Normal 3.5-5.1 [facility] Comment on above: Performed By: #### B MP ####[facility] Muogzxzzmh7[address] [place], [place] [address]Dr. Amina Escobar Sodium [Moles/Vol] 146 mmol/L Critically high 136-145 [facility] Comment on above: Performed By: #### B MP ####[facility] Hodkxatbut173[address] [place], [place] [address]Dr. Amina Escobar Urea nitrogen [Mass/Vol] 55.0 mg/dL Critically high 7.0-18.0 [facility] Comment on above: Performed By: #### B MP ####[facility] Ayfiuobivg9[address] [place], [place] [address]Dr. Amina Escobar Urea nitrogen/Creatinine [Mass ratio] 37.7 mg/mg Normal [facility] Comment on above: Performed By: #### B MP ####[facility] Dyufolqrie85[address] [place], [place] [address]Dr. Amina Escobar BNPon 04-24-2022 Natriuretic peptide B (Bld) [Mass/Vol] 2519.0 pg/mL Critically high <=1,800.0 [facility] Comment on above: Performed By: #### T SH, HSTROPN, CMP, BNP ####[facility] Pjkxnvbwqq8[address] [place], [place] [address]Dr. Amina Escobar CBC AUTO DIFFon 04-24-2022 BASO # 0.0 103/ul Normal 0.0-0.1 [facility] Comment on above: Performed By: #### C BC ####[facility] Fifgcplsmu1934[address] [place], [place] [address]Dr. Amina Escobar Basophils/100 WBC (Bld) 0.4 % Normal 0.2-2.0 [facility] Comment on above: Performed By: #### C BC ####[facility] Tlmkwqqeuu9392 [place] [address]Dr. Amina Escobar EO # 0.2 103/ul Normal 0.0-0.7 [facility] Comment on above: Performed By: #### C BC ####[facility] Xpqsthqnuk3055 [place] [address]Dr. Amina Escobar Eosinophils/100 WBC (Bld) 1.4 % Normal 0.9-7.0 [facility] Comment on above: Performed By: #### C BC ####[facility] Wlypfhnnuk4847 [place] [address]Dr. Amina Escobar Erythrocyte distribution width (RBC) [Ratio] 20.1 % Critically high 11.0-15.0 [facility] Comment on above: Performed By: #### C BC ####[facility] Emuoddzhuk0806 [place] [address]Dr. Amina Escobar Hematocrit (Bld) [Volume fraction] 20.8 % Critically low 42.0-54.0 [facility] Comment on above: Performed By: #### C BC ####[facility] Zdzeokrebq16[address] [place], [place] [address]Dr. Amina Escobar Hemoglobin (Bld) [Mass/Vol] 6.5 g/dL Critically low 14.0-18.0 [facility] Comment on above: Performed By: #### C BC ####[facility] Djospdqwvv4232 [place] [address]Dr. Amina Escobar IG # 0.08 10e3/ul Critically high 0.00-0.03 [facility] Comment on above: Performed By: #### C BC ####[facility] Xwawuovfzz6522 [place] [address]Dr. Amina Escobar IG % 0.7 % Critically high 0.0-0.5 [facility] Comment on above: Performed By: #### C BC ####[facility] Avuytjvghh82[address] [place], [place] [address]Dr. Amina Escobar LYMPH # 0.7 103/ul Critically low 1.2-3.8 [facility] Comment on above: Performed By: #### C BC ####[facility] Oenzimsgca0181 [place] [phone]. Amina Shawn Lymphocytes/100 WBC (Bld) 6.4 % Critically low 20.5-60.0 [facility] Comment on above: Performed By: #### C BC ####[facility] Ohvejismgh2591 [place] [phone]. Amina Shawn MANUAL DIFF REQ NO Normal [facility] Comment on above: Performed By: #### C BC ####[facility] Kyqjejmaxz4041 [place] [address]Dr. Amina Shawn MCH (RBC) [Entitic mass] 28.5 pg Normal 25.9-34.0 [facility] Comment on above: Performed By: #### C BC ####[facility] Tdpwsnyody2329 [place] [address]Dr. Amina Shawn MCHC (RBC) [Mass/Vol] 31.3 g/dL Normal 29.9-35.2 [facility] Comment on above: Performed By: #### C BC ####[facility] Sfxegtepme3997 [place] [address]Dr. Kandielda Escobar MCV (RBC) [Entitic vol] 91.2 fL Normal 80.0-94.0 [facility] Comment on above: Performed By: #### C BC ####[facility] Zwmksfbgfe39[address] [place], [place] [address]Dr. Amina Escobar MONO # 0.6 103/ul Normal 0.3-0.8 [facility] Comment on above: Performed By: #### C BC ####[facility] Euzzbfrike3387 [place] [address]Dr. Kandielda Escobar Monocytes/100 WBC (Bld) 5.0 % Normal 1.7-12.0 [facility] Comment on above: Performed By: #### C BC ####[facility] [address]bn[address] [place] [address]Dr. Amina Escobar NEUT # 9.4 103/ul Critically high 1.4-6.5 [facility] Comment on above: Performed By: #### C BC ####[facility] Euwmyleffu[address] [place] [id number]. Amina Escobar Neutrophils/100 WBC (Bld) 86.1 % Critically high 43.0-75.0 [facility] Comment on above: Performed By: #### C BC ####[facility] Zpnknlvmmi7426 [place], [place] [address]Mi. Amina Escobar Platelet mean volume (Bld) [Entitic vol] 10.8 fL Normal 9.5-13.5 [facility] Comment on above: Performed By: #### C BC ####[facility] Indwpynybh7894 [place], [place] [address]Gv. Amina Escobar PLT 202 103/ul Normal 150-450 [facility] Comment on above: Performed By: #### C BC ####[facility] Bmdrxffomq0430 [place], [place] [address]Rx. Amina Escobar RBC 2.28 106/ul Critically low 4.70-6.10 [facility] Comment on above: Performed By: #### C BC ####[facility] Dhtyngzseg27[address] [place] [id number]. Amina Escobar WBC 10.9 103/ul Normal 4.0-11.0 [facility] Comment on above: Performed By: #### C BC ####[facility] Hsolfgjupy[address] [place] [id number]. Amina Escobar CT CSPINE WO CONon 2 CT CSPINE WO CON Normal [facility] CT HEAD WO CONon 04-24-2022 CT HEAD WO CON Normal [facility] CULTURE URINEon 04-24-2022 CULTURE URINE Culture Observations : LIGHT GROWTH OF MIXED SKIN NERISSA. NO POTENTIAL PATHOGENS SEEN. Normal [facility] Comment on above: Performed By: #### U RCX ####[facility] Fqxomv[address] [place], [place] [id number]. Amina Escobar Covid-19 PCR (CVDTB)on 04-11 SARS-CoV-2 (COVID-19) RNA MARSHALL+probe Ql (Unsp spec) Not detected Normal NOT DETECTED [facility] Comment on above: Result Comment: When [...] for this test is supported by the Fire Extinguisher Sprinkler Inspector of Health and Human Service's declaration that [...] longer be used). Performed By: #### C [facility] ####[facility] Enebmoortl[address] [place], [place] [address]Dr. Amina Escobar ER URINE PROFILEon 2 Bilirubin Ql (U) Negative Normal NEGATIVE [facility] Comment on above: Performed By: #### Noa HIGGINS UMICRO ####[facility] Nofogyflrv5[address] [place], [place] [address]Dr. Amina Escobar Clarity (U) CLEAR Normal CLEAR [facility] Comment on above: Performed By: #### Noa HIGGINS UMICRO ####[facility] Lvsshxvusr35[address] [place], [place] [address]Dr. Amina Escobar Color (U) LT. YELLOW Normal YELLOW [facility] Comment on above: Performed By: #### Noa HIGGINS UMICRO ####[facility] Dxfempokms[address] [place], [place] [address]Dr. Amina Escobar ERUAHD A micrscopic examina tion will be performed if indicated. Normal [facility] Comment on above: Performed By: #### Noa HIGGINS UMICRO ####[facility] Icnegitswf2430[address] [place], [place] [address]Dr. Amina Escobar Glucose Ql (U) Negative Normal NEGATIVE [facility] Comment on above: Performed By: #### DMITRI ROSALES ####[facility] Druqqymaba[address] [place] [address]Dr. Amina Escobar Hemoglobin Ql (U) Negative Normal NEGATIVE [facility] Comment on above: Performed By: #### NATALYA ROSALESRO ####[facility] Ozxtprhjpz87[address] [place] [address]Dr. Amina Escobar Ketones Ql (U) Negative Normal NEGATIVE [facility] Comment on above: Performed By: #### DMITRI ROSALES ####[facility] Qyaxexlkws[address]24[address] [place], [place] [address]Dr. Amina Escobar LEUKOCYTES TRACE Abnormal NEGATIVE [facility] Comment on above: Performed By: #### DMITRI ROSALES ####[facility] Fufygelsax2859[address] [place], [place] [address]Dr. Amina Escobar Nitrite Ql (U) Negative Normal NEGATIVE [facility] Comment on above: Performed By: #### DMITRI ROSALES ####[facility] Wuehzlgwwb[address] [place], [place] [address]Dr. Amina Escobar pH (U) 5.5 [pH] Normal 5-9 [facility] Comment on above: Performed By: #### DMITRI ROSALES ####[facility] Ibikgcirds7239[address] [place], [place] [address]Dr. Amina Escobar SPEC GRAVITY 1.015 Normal 1.005-<=1. 025 [facility] Comment on above: Performed By: #### NATALYA ROSALESRO ####[facility] Eldxjeszmb3205[address] [place], [place] [address]Dr. Amina Escobar UA PROTEIN Negative Normal NEGATIVE/ TRACE [facility] Comment on above: Performed By: #### DMITRI ROSALES ####[facility] Hgcevghqkv[address] [place], [place] [address]Dr. Amina Escobar UR MICRO IND INDICATED Normal [facility] Comment on above: Performed By: #### DMITRI ROSALES ####[facility] Nrvovioocd3526[address] [place], [place] [address]Dr. Amina Escobar Urobilinogen Qn (U) 0.2 {Mel'U}/dL Normal 0.2 - 1. 0 [facility] Comment on above: Performed By: #### E DMITRI HIGGINS ####[facility] Wnwpydfpqi3[address] [place] [address]Dr. Amina Escobar IRONon 04-24-2022 Iron [Mass/Vol] 36.0 ug/dL Critically low 65.0-175.0 [facility] Comment on above: Performed By: #### I PHIL ####[facility] Urcvowpgam[address] [place], [place] [address]Dr. Amina Escobar OCC BLD IMMUNO SCREENon 04-11 OCCULT BLOOD Positive Abnormal NEGATIVE [facility] Comment on above: Performed By: #### O BSCRN ####[facility] Zqdckylyna[address] [place], [place] [address]Dr. Amina Escobar PROF 14(COMP METB)on 022 Albumin [Mass/Vol] 3.2 g/dL Critically low 3.4-5.0 [facility] Comment on above: Performed By: #### T SH, HSTROPN, CMP, BNP ####[facility] Lyxiqmypjm[address] [place], [place] [address]Dr. Amina Escobar Albumin/Globulin [Mass ratio] 1.0 {ratio} Normal [facility] Comment on above: Performed By: #### T SH, HSTROPN, CMP, BNP ####[facility] Ohhedvlaty[address] [place] [address]Dr. Amina Escobar ALP [Catalytic activity/Vol] 148 U/L Critically high 46-116 [facility] Comment on above: Performed By: #### T SH, HSTROPN, CMP, BNP ####[facility] Figiyrqxxc37[address] [place] [address]Dr. Amina Escobar ALT [Catalytic activity/Vol] 19 U/L Normal 16-63 [facility] Comment on above: Performed By: #### T SH, HSTROPN, CMP, BNP ####[facility] Cmprxllkhn[address] [place], [place] [address]Dr. Amina Escobar Anion gap [Moles/Vol] 12.0 mmol/L Normal [facility] Comment on above: Performed By: #### T SH, HSTROPN, CMP, BNP ####[facility] Hktprfgafv[address] [place] [address]Dr. Amina Escobar AST [Catalytic activity/Vol] 11 U/L Critically low 15-37 [facility] Comment on above: Performed By: #### T SH, HSTROPN, CMP, BNP ####[facility] Vbdbekytvw1352 [place] [address]Dr. Amina Escobar Bilirubin [Mass/Vol] 0.5 mg/dL Normal 0.2-1.0 [facility] Comment on above: Performed By: #### T SH, HSTROPN, CMP, BNP ####[facility] Inprdkiwok[address] [place], [place] [address]Dr. Amina Escobar Calcium [Mass/Vol] 8.1 mg/dL Critically low 8.5-10.1 [facility] Comment on above: Performed By: #### T SH, HSTROPN, CMP, BNP ####[facility] Quozqqqghj32[address] [place] [address]Dr. Amina Escobar Chloride [Moles/Vol] 110 mmol/L Critically high 98-107 [facility] Comment on above: Performed By: #### T SH, HSTROPN, CMP, BNP ####[facility] Tbioarcdri74[address] [place] [address]Dr. Amina Escobar CO2 [Moles/Vol] 24.0 mmol/L Normal 21.0-32.0 [facility] Comment on above: Performed By: #### T SH, HSTROPN, CMP, BNP ####[facility] Kqiinlodds[address] [place] [address]Dr. Amina Escobar Creatinine [Mass/Vol] 1.55 mg/dL Critically high 0.70-1.30 [facility] Comment on above: Performed By: #### T SH, HSTROPN, CMP, BNP ####[facility] Tujvneessa[address] [place] [address]Dr. Amina Escobar EGFR-AF TUNISIAN 52 mL/min/1.73m2 Critically low >=60 [facility] Comment on above: Performed By: #### T SH, HSTROPN, CMP, BNP ####[facility] Cnlqkxjnkq[address] [place] [address]Dr. Amina Escobar EGFR-NON AF TUNISIAN 43 mL/min/1.73m2 Critically low >=60 [facility] Comment on above: Performed By: #### T SH, HSTROPN, CMP, BNP ####[facility] Wvkyksivio49[address] [place], [place] [address]Dr. Amina Escobar Globulin (S) [Mass/Vol] 3.3 g/dL Normal [facility] Comment on above: Performed By: #### T SH, HSTROPN, CMP, BNP ####[facility] Lvndwtwsno[address] [place], [place] [address]Dr. Amina Escobar Glucose [Mass/Vol] 139 mg/dL Critically high 74-106 [facility] Comment on above: Performed By: #### T SH, HSTROPN, CMP, BNP ####[facility] Pskppzmsjr[address] [place], [place] [address]Dr. Amina Escobar Potassium [Moles/Vol] 4.0 mmol/L Normal 3.5-5.1 [facility] Comment on above: Performed By: #### T SH, HSTROPN, CMP, BNP ####[facility] Avmzipwoem[address] [place], [place] [address]Dr. Amina Escobar Protein [Mass/Vol] 6.5 g/dL Normal 6.4-8.2 [facility] Comment on above: Performed By: #### T SH, HSTROPN, CMP, BNP ####[facility] Zazkqozyal63[address] [place], [place] [address]Dr. Amina Escobar Sodium [Moles/Vol] 142 mmol/L Normal 136-145 [facility] Comment on above: Performed By: #### T SH, HSTROPN, CMP, BNP ####[facility] Kpjaadrrrj[address] [place], [place] [address]Dr. Amina Escobar Urea nitrogen [Mass/Vol] 58.0 mg/dL Critically high 7.0-18.0 [facility] Comment on above: Performed By: #### T SH, HSTROPN, CMP, BNP ####[facility] Agrtrjggib[address] [place] [address]Dr. Amina Escobar Urea nitrogen/Creatinine [Mass ratio] 37.4 mg/mg Normal [facility] Comment on above: Performed By: #### T SH, HSTROPN, CMP, BNP ####[facility] Hjmywlldjq[address] [place] [address]Dr. Amina Escobar PROTIMEon 04-24-2022 INR Coag (PPP) [Relative time] 2.33 {INR} Normal [facility] Comment on above: Performed By: #### P T, PTT ####[facility] Iytasuttdo[address] [place], [place] [address]Dr. Amina Escobar INR GUIDELINES SEE BELOW Normal [facility] Comment on above: Result Comment: LIMA RED INR: 2.0 - 3.0 CONDITIONS NOT LISTED BELOW 2.5 - 3.5 FOR PROSTHETIC HEART VALVE REPLACEMENT 2.5 - 3.5 RECURRENT THROMBOSIS Performed By: #### P T, PTT ####[facility] Yvppdwdojy[address] [place], [place] [address]Dr. Amina Escobar PT Coag (PPP) [Time] 23.8 s Critically high 9.0-11.6 [facility] Comment on above: Performed By: #### P T, PTT ####[facility] Ndurzxpqgn[address] [place], [place] [address]Dr. Amina Escobar PTTon 04-24-2022 aPTT Coag (Bld) [Time] 37.6 s Critically high 22.3-36.2 [facility] Comment on above: Performed By: #### P T, PTT ####[facility] Uuwkkallyj7[address] [place], [place] [address]Dr. Amina Escobar TROPONIN, HIGH SENSITIVITYon 04-24-2022 HSTROP 19.5 pg/mL Normal 4.0-76.1 [facility] Comment on above: Result Comment: CUT- OFF POINTS HAVE BEEN ESTABLISHED BASED ON THE FOURTH UNIVERSAL DEFINITIONS OF MYOCARDIALINFARCTION. THE UPPER REFERENCE LIMIT (URL) OF TROPONIN, DEFINED THE 99TH PERCENTILE OFcTnI DISTRIBUTION IN A REFERENCE POPULATION, HAS BEEN CONFIRMED THE DECISION THRESHOLDFOR UT DIAGNOSIS. Performed By: #### T SH, HSTROPN, CMP, BNP ####[facility] Rfekmibqyt6[address] [place] [address]Dr. Amina Escobar TSHon 04-24-2022 TSH 7.569 uIU/mL Critically high 0.358-3.74 0 [facility] Comment on above: Performed By: #### T SH, HSTROPN, CMP, BNP ####[facility] Qnszrazues7[address] [place] [address]Dr. Amina Shawn TYPE AND SCREENon 04-24-2022 TYPE AND SCREEN Negative Normal [facility] Comment on above: Performed By: #### T NS ####[facility] Ginovunhva[address] [place], [place] [address]Dr. Amina Escobar URINE MICROSCOPIC ONLYon BACTERIA TRACE Abnormal NONE SEEN [facility] Comment on above: Performed By: #### Noa HIGGINS UMICRO ####[facility] Jemmfetdvc[address] [place], [place] [address]Dr. Amina Escobar Bacteria identified Cx Nom (U) INDICATED Normal [facility] Comment on above: Performed By: #### Noa HIGGINS UMICRO ####[facility] Epdfrtanor86[address] [place] [address]Dr. Amina Escobar CAST NONE SEEN Normal NONE SEEN [facility] Comment on above: Performed By: #### Noa HIGGINS UMICRO ####[facility] Dtwjvajvbi87[address] [place] [address]Dr. Amina Escobar Crystals LM Nom (Urine sed) NONE SEEN Normal NONE SEEN [facility] Comment on above: Performed By: #### Noa HIGGINS UMICRO ####[facility] Pmmizjtazh[address] [place] [address]Dr. Amina Escobar Epithelial cells LM Ql (Urine sed) RARE Normal NONE SEEN /RARE [facility] Comment on above: Performed By: #### DMITRI ROSALES ####[facility] Igliizrfop[address] [place] [id number]. Amina Escobar MUCOUS TRACE Abnormal NONE SEEN [facility] Comment on above: Performed By: #### DMITRI ROSALES ####[facility] Vrsplefafs04[address] [place] [address]Dr. Kandielda Escobar RBC NONE SEEN Abnormal 0-2 [facility] Comment on above: Performed By: #### DMITRI ROSALES ####[facility] Tjpffuinnw0382 [place] [address]Dr. Amina Escobar WBC 0-2 Abnormal NONE SEEN [facility] Comment on above: Performed By: #### DMITRI ROSALES ####[facility] Wiopuhjaef400[address] [place] [address]Dr. Amina Escobar XR CHEST 1 Von 04-24-2022 XR CHEST 1 V Normal [facility] XR PELVIS 1_2 VIEWSon 2021 XR PELVIS 1_2 VIEWS Normal [facility] HEMOGRAM AND PLATELon 2021 Hematocrit (Bld) [Volume fraction] 37.9 % Critically low 42.0-54.0 [facility] Comment on above: Performed By: #### H H ####[facility] Bdfthaxjzp3962[address] [place], [place] [address]Dr. Amina Escobar Hemoglobin (Bld) [Mass/Vol] 11.6 g/dL Critically low 14.0-18.0 [facility] Comment on above: Performed By: #### H H ####[facility] Zxynmoaacb5[address] [place] [address]Dr. Amina Escobar MCH (RBC) [Entitic mass] 27.1 pg Normal 25.9-34.0 [facility] Comment on above: Performed By: #### H H ####[facility] Zbijdavttk6[address] [place] [address]Dr. Amina Escobar MCHC (RBC) [Mass/Vol] 30.6 g/dL Normal 29.9-35.2 [facility] Comment on above: Performed By: #### H H ####[facility] Buanpzvzmg7166 [place] [id number]. Amina Escobar MCV (RBC) [Entitic vol] 88.6 fL Normal 80.0-94.0 [facility] Comment on above: Performed By: #### H H ####[facility] Kjsabbzgbr8094 [place] [id number]. Amina Escobar PLT 165 103/ul Normal 150-450 [facility] Comment on above: Performed By: #### H H ####[facility] Lnumowynub4842[address] [place], [place] [address]Dr. Amina Escobar RBC 4.28 106/ul Critically low 4.70-6.10 [facility] Comment on above: Performed By: #### H H ####[facility] Owrgmzmdqj7[address] [place], [place] [address]Dr. Amina Escobar WBC 7.4 103/ul Normal 4.0-11.0 [facility] Comment on above: Performed By: #### H H ####[facility] Qvuugbatlw24[address] [place], [place] [address]Dr. Amina Escobar IRONon 04-10-2022 Iron [Mass/Vol] 66.0 ug/dL Normal 65.0-175.0 [facility] Comment on above: Performed By: #### I PHIL ####[facility] Dambczdhuw[address] [place], [place] [address]Dr. Amina Escobar CBC AUTO DIFFon 02-16-2022 BASO # 0.1 103/ul Normal 0.0-0.1 [facility] Comment on above: Performed By: #### C BC ####[facility] Buzupdcflq1439[address] [place], [place] [address]Dr. Amina Escobar Basophils/100 WBC (Bld) 0.8 % Normal 0.2-2.0 [facility] Comment on above: Performed By: #### C BC ####[facility] Qalfwuoknq7766[address] [place], [place] [address]Dr. Amina Escobar EO # 0.2 103/ul Normal 0.0-0.7 [facility] Comment on above: Performed By: #### C BC ####[facility] Vqbimxqlrb1630 [place] [id number]. Amina Escobar Eosinophils/100 WBC (Bld) 3.2 % Normal 0.9-7.0 [facility] Comment on above: Performed By: #### C BC ####[facility] Qzihlojsol7503 [place] [id number]. Amina Escobar Erythrocyte distribution width (RBC) [Ratio] 17.6 % Critically high 11.0-15.0 [facility] Comment on above: Performed By: #### C BC ####[facility] Oydbciksxz2[address] [place] [address]Dr. Amina Escobar Hematocrit (Bld) [Volume fraction] 36.5 % Critically low 42.0-54.0 [facility] Comment on above: Performed By: #### C BC ####[facility] Cbddljozqi[address] [place], [place] [address]Dr. Amina Escobar Hemoglobin (Bld) [Mass/Vol] 11.2 g/dL Critically low 14.0-18.0 [facility] Comment on above: Performed By: #### C BC ####[facility] Jyhtnvwkqd[address] [place], [place] [address]Dr. Amina Escobar IG # 0.02 10e3/ul Normal 0.00-0.03 [facility] Comment on above: Performed By: #### C BC ####[facility] Xhnmnelthv[address]50[address] [place], [place] [address]Dr. Amina Escobar IG % 0.3 % Normal 0.0-0.5 [facility] Comment on above: Performed By: #### C BC ####[facility] Psklnkdmzs80[address] [place] [address]Dr. Amina Escobar LYMPH # 0.9 103/ul Critically low 1.2-3.8 [facility] Comment on above: Performed By: #### C BC ####[facility] Faztocvzbd0[address] [place], [place] [address]Dr. Amina Escobar Lymphocytes/100 WBC (Bld) 14.2 % Critically low 20.5-60.0 [facility] Comment on above: Performed By: #### C BC ####[facility] Lszlkiylep[address] [place] [address]Dr. Amina Escobar MANUAL DIFF REQ NO Normal [facility] Comment on above: Performed By: #### C BC ####[facility] Zfbczjlsfi4727 [place] [id number]. Amina Escobar MCH (RBC) [Entitic mass] 26.4 pg Normal 25.9-34.0 [facility] Comment on above: Performed By: #### C BC ####[facility] Iyjpphwfqd5[address] [place], [place] [address]Dr. Amina Escobar MCHC (RBC) [Mass/Vol] 30.7 g/dL Normal 29.9-35.2 [facility] Comment on above: Performed By: #### C BC ####[facility] Neokjmfyxz[address] [place], [place] [address]Dr. Amina Escobar MCV (RBC) [Entitic vol] 86.1 fL Normal 80.0-94.0 [facility] Comment on above: Performed By: #### C BC ####[facility] Zprqpnelkr8[address] [place], [place] [address]Dr. Amina Escobar MONO # 0.6 103/ul Normal 0.3-0.8 [facility] Comment on above: Performed By: #### C BC ####[facility] Vahpqifepx[address] [place], [place] [address]Dr. Kandielda Escobar Monocytes/100 WBC (Bld) 8.7 % Normal 1.7-12.0 [facility] Comment on above: Performed By: #### C BC ####[facility] Pndguilouu7[address] [place], [place] [address]Dr. Amina Escobar NEUT # 4.6 103/ul Normal 1.4-6.5 [facility] Comment on above: Performed By: #### C BC ####[facility] Ynmpfxfmpm6[address] [place], [place] [address]Dr. Amina Ecsobar Neutrophils/100 WBC (Bld) 72.8 % Normal 43.0-75.0 [facility] Comment on above: Performed By: #### C BC ####[facility] Wgceiiwwvg1321 [place] [id number]. Amina Escobar Platelet mean volume (Bld) [Entitic vol] 11.0 fL Normal 9.5-13.5 [facility] Comment on above: Performed By: #### C BC ####[facility] Lgrnnyrafu3[address] [place] [id number]. Amina Escobar PLT 183 103/ul Normal 150-450 [facility] Comment on above: Performed By: #### C BC ####[facility] Aicbgoqcez39[address] [place] [address]Dr. Amina Shawn RBC 4.24 106/ul Critically low 4.70-6.10 [facility] Comment on above: Performed By: #### C BC ####[facility] Xlygfhkhft[address] [place] [address]Dr. Amina Shawn WBC 6.3 103/ul Normal 4.0-11.0 [facility] Comment on above: Performed By: #### C BC ####[facility] Gjkandbqjs[address] [place] [address]Dr. Amina Escobar CULTURE URINEon 02-16-2022 CULTURE URINE Culture Observations : NO GROWTH. Normal [facility] Comment on above: Performed By: #### U RCX ####[facility] Dkeyuknhlw[address] [place] [address]Dr. Amina Escobar PROF 14(COMP METB)on 022 Albumin [Mass/Vol] 3.5 g/dL Normal 3.4-5.0 [facility] Comment on above: Performed By: #### C MP ####[facility] Fqnqfwwntn64[address] [place] [address]Dr. Amina Shawn Albumin/Globulin [Mass ratio] 1.0 {ratio} Normal [facility] Comment on above: Performed By: #### C MP ####[facility] Vitcchhfga[address] [place] [address]Dr. Amina Shawn ALP [Catalytic activity/Vol] 199 U/L Critically high 46-116 [facility] Comment on above: Performed By: #### C MP ####[facility] Ayseonqtxk[address] [place] [id number]. Amina Escobar ALT [Catalytic activity/Vol] 17 U/L Normal 16-63 [facility] Comment on above: Performed By: #### C MP ####[facility] Snbrpipuzd8450 [place] [id number]. Amina Escobar Anion gap [Moles/Vol] 13.3 mmol/L Normal [facility] Comment on above: Performed By: #### C MP ####[facility] Ovprifslho2384 [place] [id number]. Amina Escobar AST [Catalytic activity/Vol] 10 U/L Critically low 15-37 [facility] Comment on above: Performed By: #### C MP ####[facility] Updukuubhh[address] [place] [address]Dr. Amina Escobar Bilirubin [Mass/Vol] 0.4 mg/dL Normal 0.2-1.0 [facility] Comment on above: Performed By: #### C MP ####[facility] Fufzxhnzxy[address] [place], [place] [id number]. Amina Escobar Calcium [Mass/Vol] 8.5 mg/dL Normal 8.5-10.1 [facility] Comment on above: Performed By: #### C MP ####[facility] Oknwuxqzzz19[address] [place] [address]Dr. Amina Escobar Chloride [Moles/Vol] 110 mmol/L Critically high 98-107 [facility] Comment on above: Performed By: #### C MP ####[facility] Hdlotbtkck4966 [place] [id number]. Amina Escobar CO2 [Moles/Vol] 26.0 mmol/L Normal 21.0-32.0 [facility] Comment on above: Performed By: #### C MP ####[facility] Dvvqyqvzij5672 [place] [address]Dr. Amina Escobar Creatinine [Mass/Vol] 1.35 mg/dL Critically high 0.70-1.30 [facility] Comment on above: Performed By: #### C MP ####[facility] Sfqutdtpar1229 [place] [id number]. Amina Escobar EGFR-AF TUNISIAN >60 Normal >=60 [facility] Comment on above: Performed By: #### C MP ####[facility] Bhdpnkmsnl9630 [place] [address]Dr. Amina Escobar EGFR-NON AF TUNISIAN 50 mL/min/1.73m2 Critically low >=60 [facility] Comment on above: Performed By: #### C MP ####[facility] Zkjeqxorqj9699 [place] [address]Dr. Amina Escobar Globulin (S) [Mass/Vol] 3.6 g/dL Normal [facility] Comment on above: Performed By: #### C MP ####[facility] Mweutxocai0498 [place] [address]Dr. Amina Escobar Glucose [Mass/Vol] 109 mg/dL Critically high 74-106 [facility] Comment on above: Performed By: #### C MP ####[facility] Uwwynzgrul3075 [place] [address]Dr. Amina Escobar Potassium [Moles/Vol] 4.3 mmol/L Normal 3.5-5.1 [facility] Comment on above: Performed By: #### C MP ####[facility] Bdavgalpnm8033 [place] [address]Dr. Amina Escobar Protein [Mass/Vol] 7.1 g/dL Normal 6.4-8.2 [facility] Comment on above: Performed By: #### C MP ####[facility] Dlioglimti6507 [place] [address]Dr. Amina Escobar Sodium [Moles/Vol] 145 mmol/L Normal 136-145 [facility] Comment on above: Performed By: #### C MP ####[facility] Eevwckegsn8097 [place] [address]Dr. Amina Escobar Urea nitrogen [Mass/Vol] 34.0 mg/dL Critically high 7.0-18.0 [facility] Comment on above: Performed By: #### C MP ####[facility] Dqlklvdcjv[address] [place], [place] [address]Dr. Amina Escobar Urea nitrogen/Creatinine [Mass ratio] 25.2 mg/mg Normal [facility] Comment on above: Performed By: #### C MP ####[facility] Pwkagulqbc9[address] [place], [place] [address]Dr. Amina Escobar UA (CLEAN/CATCH) MICROSCOPIC IF INDICATEon 02-16-2022 Bilirubin Ql (U) Negative Normal NEGATIVE [facility] Comment on above: Performed By: #### U ARMICR ####[facility] Lhetzptiwb9004[address] [place], [place] [address]Dr. Amina Escobar Clarity (U) CLEAR Normal CLEAR [facility] Comment on above: Performed By: #### U ARMICR ####[facility] Owtrmartug2512[address] [place], [place] [address]Dr. Amina Escobar Color (U) YELLOW Normal YELLOW [facility] Comment on above: Performed By: #### U ARMICR ####[facility] Hhcynhshmm29[address] [place], [place] [address]Dr. Amina Escobar Glucose Ql (U) Negative Normal NEGATIVE [facility] Comment on above: Performed By: #### U ARMICR ####[facility] Yovhthvlth110[address] [place], [place] [address]Dr. Amina Escobar Hemoglobin Ql (U) Negative Normal NEGATIVE [facility] Comment on above: Performed By: #### U ARMICR ####[facility] Irgnixypls7633[address] [place], [place] [address]Dr. Amina Escobar Ketones Ql (U) Negative Normal NEGATIVE [facility] Comment on above: Performed By: #### U ARMICR ####[facility] Kwuxdlizwd7928[address] [place], [place] [address]Dr. Amina Escobar LEUKOCYTES Negative Normal NEGATIVE [facility] Comment on above: Performed By: #### U ARMICR ####[facility] Oqortwddhh8083[address] [place], [place] [address]Dr. Amina Escobar Nitrite Ql (U) Negative Normal NEGATIVE [facility] Comment on above: Performed By: #### U ARMICR ####[facility] Lqjjlppmpl8780 [place] [address]Dr. Amina Escobar pH (U) 5.5 [pH] Normal 5-9 [facility] Comment on above: Performed By: #### U ARMICR ####[facility] Argsgsxedm7579 [place] [address]Dr. Amina Escobar SPEC GRAVITY 1.025 Normal 1.005-<=1. 025 [facility] Comment on above: Performed By: #### U ARMICR ####[facility] Zxiscdbldw3216 [place] [address]Dr. Amina Escobar UA PROTEIN Negative Normal NEGATIVE/ TRACE [facility] Comment on above: Performed By: #### U JAR ####[facility] Etwxdkjejn9[address] [place], [place] [address]Dr. Amina Escobar UR MICRO IND MICROSCOPIC ALREADY ORDERED Normal [facility] Comment on above: Performed By: #### U JAR ####[facility] Hbdlegwlen2[address] [place], [place] [address]Dr. Amina Escobar Urobilinogen Qn (U) 0.2 {Mel'U}/dL Normal 0.2 - 1. 0 [facility] Comment on above: Performed By: #### U ARMDUKER ####[facility] Lqrumghjqa[address] [place], [place] [address]Dr. Amina Escobar ECHOCARDIO M/2D COMPLETEon 0 02-11-2022 ECHOCARDIO M/2D COMPLETE Normal [facility] CBC AUTO DIFFon 01-06-2022 BASO # 0.0 103/ul Normal 0.0-0.1 [facility] Comment on above: Performed By: #### C BC ####[facility] Seiwacwqej6960[address] [place], [place] [address]Dr. Amina Escobar Basophils/100 WBC (Bld) 0.7 % Normal 0.2-2.0 [facility] Comment on above: Performed By: #### C BC ####[facility] Qoogmenxru7376[address] [place], [place] [address]Dr. Amina Escobar EO # 0.3 103/ul Normal 0.0-0.7 [facility] Comment on above: Performed By: #### C BC ####[facility] Kymuysnmcw46[address] [place] [id number]. Amina Escobar Eosinophils/100 WBC (Bld) 5.4 % Normal 0.9-7.0 [facility] Comment on above: Performed By: #### C BC ####[facility] Rhuwzylbvo0146 [place] [id number]. Amina Escobar Erythrocyte distribution width (RBC) [Ratio] 18.2 % Critically high 11.0-15.0 [facility] Comment on above: Performed By: #### C BC ####[facility] Dicalwwpxk7374[address] [place], [place] [address]Dr. Amina Escobar Hematocrit (Bld) [Volume fraction] 35.6 % Critically low 42.0-54.0 [facility] Comment on above: Performed By: #### C BC ####[facility] Fnnyiiyrsy1628[address] [place], [place] [address]Dr. Amina Escobar Hemoglobin (Bld) [Mass/Vol] 10.9 g/dL Critically low 14.0-18.0 [facility] Comment on above: Performed By: #### C BC ####[facility] Mfpfieeeop5743[address] [place], [place] [address]Dr. Amina Escobar IG # 0.02 10e3/ul Normal 0.00-0.03 [facility] Comment on above: Performed By: #### C BC ####[facility] Nxqonedqos684[address] [place], [place] [address]Dr. Amina Escobar IG % 0.4 % Normal 0.0-0.5 [facility] Comment on above: Performed By: #### C BC ####[facility] Lzgpzdyyna9[address] [place], [place] [address]Dr. Amina Escobar LYMPH # 0.8 103/ul Critically low 1.2-3.8 [facility] Comment on above: Performed By: #### C BC ####[facility] Ldzeauirdx8[address] [place], [place] [address]Dr. Amina Escobar Lymphocytes/100 WBC (Bld) 13.4 % Critically low 20.5-60.0 [facility] Comment on above: Performed By: #### C BC ####[facility] Sostgdcqey05[address] [place] [address]Dr. Amina Escobar MANUAL DIFF REQ NO Normal [facility] Comment on above: Performed By: #### C BC ####[facility] Nopkmpvpqf8323 [place] [address]Dr. Amina Escobar MCH (RBC) [Entitic mass] 26.6 pg Normal 25.9-34.0 [facility] Comment on above: Performed By: #### C BC ####[facility] Bvzxhdtcfy5914 [place] [address]Dr. Amina Escobar MCHC (RBC) [Mass/Vol] 30.6 g/dL Normal 29.9-35.2 [facility] Comment on above: Performed By: #### C BC ####[facility] Coaqfqosxd065[address] [place], [place] [address]Dr. Amina Escobar MCV (RBC) [Entitic vol] 86.8 fL Normal 80.0-94.0 [facility] Comment on above: Performed By: #### C BC ####[facility] Jpaglqleot2422[address] [place], [place] [address]Dr. Amina Escobar MONO # 0.6 103/ul Normal 0.3-0.8 [facility] Comment on above: Performed By: #### C BC ####[facility] Jrbcueqrkd5956[address] [place], [place] [address]Dr. Amina Escobar Monocytes/100 WBC (Bld) 10.4 % Normal 1.7-12.0 [facility] Comment on above: Performed By: #### C BC ####[facility] Lbyoyksjzk0846[address] [place], [place] [address]DrMemo Escobar NEUT # 3.9 103/ul Normal 1.4-6.5 [facility] Comment on above: Performed By: #### C BC ####[facility] Fogjeshcrw8969[address] [place], [place] [address]DrMemo Escobar Neutrophils/100 WBC (Bld) 69.7 % Normal 43.0-75.0 [facility] Comment on above: Performed By: #### C BC ####[facility] Purmvyjzqf1772 [place] [address]Dr. Amina Escobar Platelet mean volume (Bld) [Entitic vol] 10.6 fL Normal 9.5-13.5 [facility] Comment on above: Performed By: #### C BC ####[facility] Ghfqudvvvw7022 [place] [address]Dr. Amina Escobar PLT 180 103/ul Normal 150-450 [facility] Comment on above: Performed By: #### C BC ####[facility] Etmzmvqaye2937[address] [place], [place] [address]Dr. Amina Shawn RBC 4.10 106/ul Critically low 4.70-6.10 [facility] Comment on above: Performed By: #### C BC ####[facility] Xnwgczkwxi6784[address] [place], [place] [address]Dr. Amina Shawn WBC 5.6 103/ul Normal 4.0-11.0 [facility] Comment on above: Performed By: #### C BC ####[facility] Yiyvwlvhqf00[address] [place], [place] [address]DrMemo Amina Shawn IRONon 01-06-2022 Iron [Mass/Vol] 42.0 ug/dL Critically low 65.0-175.0 [facility] Comment on above: Performed By: #### I PHIL ####[facility] Iubnmtgrms7269[address] [place], [place] [address]Dr. Amina Shawn CBC AUTO DIFFon 12-23-2021 BASO # 0.1 103/ul Normal 0.0-0.1 [facility] Comment on above: Performed By: #### C BC ####[facility] Ylbpjldllu[address] [place], [place] [address]Dr. Amina Shawn Basophils/100 WBC (Bld) 0.9 % Normal 0.2-2.0 [facility] Comment on above: Performed By: #### C BC ####[facility] Kztubjtyho8864[address] [place], [place] [address]Dr. Amina Shawn EO # 0.2 103/ul Normal 0.0-0.7 [facility] Comment on above: Performed By: #### C BC ####[facility] Fmsjybmndm7001 [place] [address]Dr. Amina Shawn Eosinophils/100 WBC (Bld) 3.6 % Normal 0.9-7.0 [facility] Comment on above: Performed By: #### C BC ####[facility] Njyferurfd1763[address] [place], [place] [address]Dr. Kandielda Escobar Erythrocyte distribution width (RBC) [Ratio] 19.5 % Critically high 11.0-15.0 [facility] Comment on above: Performed By: #### C BC ####[facility] Kfjzqmtiwv[address] [place], [place] [address]Dr. Amina Escobar Hematocrit (Bld) [Volume fraction] 33.6 % Critically low 42.0-54.0 [facility] Comment on above: Performed By: #### C BC ####[facility] Dyrptydfwb6536[address] [place], [place] [address]Dr. Amina Escobar Hemoglobin (Bld) [Mass/Vol] 10.2 g/dL Critically low 14.0-18.0 [facility] Comment on above: Performed By: #### C BC ####[facility] Zphprqwwbr2653[address] [place], [place] [address]Dr. Amina Escobar IG # 0.01 10e3/ul Normal 0.00-0.03 [facility] Comment on above: Performed By: #### C BC ####[facility] Dblbepryja5326[address] [place], [place] [address]Dr. Amina Escobar IG % 0.2 % Normal 0.0-0.5 [facility] Comment on above: Performed By: #### C BC ####[facility] Hidttqvkjx2686[address] [place], [place] [address]Dr. Amina Escobar LYMPH # 0.8 103/ul Critically low 1.2-3.8 [facility] Comment on above: Performed By: #### C BC ####[facility] Eynyxvgvbb1498[address] [place], [place] [address]Dr. Amina Escobar Lymphocytes/100 WBC (Bld) 15.2 % Critically low 20.5-60.0 [facility] Comment on above: Performed By: #### C BC ####[facility] Dyszfycrdd5565 [place] [address]Dr. Amina Escobar MANUAL DIFF REQ NO Normal [facility] Comment on above: Performed By: #### C BC ####[facility] Jrjooremly9207 [place] [address]Dr. Amina Escobar MCH (RBC) [Entitic mass] 26.6 pg Normal 25.9-34.0 [facility] Comment on above: Performed By: #### C BC ####[facility] Aqqgjcuezn6798[address] [place], [place] [address]Dr. Amina Escobar MCHC (RBC) [Mass/Vol] 30.4 g/dL Normal 29.9-35.2 [facility] Comment on above: Performed By: #### C BC ####[facility] Rvzostrsse827[address] [place], [place] [address]Dr. Amina Escobar MCV (RBC) [Entitic vol] 87.7 fL Normal 80.0-94.0 [facility] Comment on above: Performed By: #### C BC ####[facility] Uviismzotj7179[address] [place], [place] [address]DrMemo Escobar MONO # 0.5 103/ul Normal 0.3-0.8 [facility] Comment on above: Performed By: #### C BC ####[facility] Jwczityhed8239[address] [place], [place] [address]Dr. Amina Escobar Monocytes/100 WBC (Bld) 10.0 % Normal 1.7-12.0 [facility] Comment on above: Performed By: #### C BC ####[facility] Kcictzmdec4208[address] [place], [place] [address]DrMemo Escobar NEUT # 3.7 103/ul Normal 1.4-6.5 [facility] Comment on above: Performed By: #### C BC ####[facility] Xwiudvqmxk7898[address] [place], [place] [address]Dr. Amina Escobar Neutrophils/100 WBC (Bld) 70.1 % Normal 43.0-75.0 [facility] Comment on above: Performed By: #### C BC ####[facility] Ewbjsfztqt5218 [place] [address]Dr. Amina Escobar Platelet mean volume (Bld) [Entitic vol] 10.2 fL Normal 9.5-13.5 [facility] Comment on above: Performed By: #### C BC ####[facility] Yobnbazudt9924 [place] [address]Dr. Amina Escobar PLT 201 103/ul Normal 150-450 [facility] Comment on above: Performed By: #### C BC ####[facility] Tkxqwiqqae7146 [place] [address]Dr. Amina Escobar RBC 3.83 106/ul Critically low 4.70-6.10 [facility] Comment on above: Performed By: #### C BC ####[facility] Fvblwonyfo3721 [place] [address]Dr. Amina Escobar WBC 5.3 103/ul Normal 4.0-11.0 [facility] Comment on above: Performed By: #### C BC ####[facility] Xdjurfqjwd6712 [place] [address]Dr. Amina Escobar IRONon 12-23-2021 Iron [Mass/Vol] 60.0 ug/dL Critically low 65.0-175.0 [facility] Comment on above: Performed By: #### I PHIL ####[facility] Vqgmnayylt4[address] [place], [place] [address]Dr. 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 This test has not been FDA cleared [...] is terminated or revoked sooner. PERFORMED BY: [place] [address] PATHOLOGIST CONSULTING SALES MANAGER JAIRO GLYNN M.D. Performed By: #### C OVID 19 [facility] #### [address] CBC COMPLETE BLOOD COUNT01-01-2021 Erythrocyte distribution width (RBC) [Ratio] 13.7 % Normal 11.5-15.[address] [facility] Comment on above: Order Comment: RUL Performed By: #### 3 [id number] #### [facility] [address] Hematocrit (Bld) [Volume fraction] 37.9 % Low 39.0-50.[address] [facility] Comment on above: Order Comment: RUL Performed By: #### 3 0323 #### [facility] [address] Hemoglobin (Bld) [Mass/Vol] 12.2 g/dL Low 13.0-17.[address] [facility] Comment on above: Order Comment: RUL Performed By: #### 3 0323 #### [facility] [address] MCH (RBC) [Entitic mass] 28.9 pg Normal 27.0-33.[address] [facility] Comment on above: Order Comment: RUL Performed By: #### 3 0323 #### [facility] [address] [place] [address], [facility] MCHC (RBC) [Mass/Vol] 32.2 g/dL Normal 32.0-35.[address] [facility] Comment on above: Order Comment: RUL Performed By: #### 3 0323 #### [facility] [address] [place] [id number], [facility] MCV (RBC) [Entitic vol] 89.8 fL Normal 82.0-98.[address] [facility] Comment on above: Order Comment: RUL Performed By: #### 3 0323 #### [facility] [address] [facility] [place] [address], [facility] Nucleated RBC/100 WBC (Bld) [Ratio] 0 % Normal 0-[address] [facility] Comment on above: Order Comment: RUL Performed By: #### 3 0323 #### [facility] [address] [facility] [place] [address], [facility] PLAT CNT 154 10*3/uL Normal 150-[address] [facility] Comment on above: Order Comment: RUL Performed By: #### 3 0323 #### [facility] [address] [facility] [place] [address], [facility] RBC (Bld) [#/Vol] 4.22 10*6/uL Normal 4.20-5.[address] [facility] Comment on above: Order Comment: RUL Performed By: #### 3 0323 #### [facility] [address] [facility] [place] [address], [place] WBC (Bld) [#/Vol] 7.48 10*3/uL Normal 4.00-10.[address] [facility] Comment on above: Order Comment: RUL Performed By: #### 3 0323 #### [facility] [address] [place] [address], [facility] COMP METABOLIC PANELon 01-01 Albumin [Mass/Vol] 3.5 g/dL Normal 3.5-5.[address] [facility] Comment on above: Order Comment: No: D o not add to previous draw Performed By: #### 1 0, [id number] #### [facility] [address] [place] [address], [place] ALKALINE PHOSPH 97 IU/L Normal 34-[address] [facility] Comment on above: Order Comment: No: D o not add to previous draw Performed By: #### 1 69, [id number] #### [facility] [address] [place] [address], [place] ALT [Catalytic activity/Vol] 14 U/L Normal 7-[address] [facility] Comment on above: Order Comment: No: D o not add to previous draw Performed By: #### 1 69, [id number] #### [facility] [address] [place] [address], [place] AST [Catalytic activity/Vol] 14 U/L Normal 13-[address] [facility] Comment on above: Order Comment: No: D o not add to previous draw Performed By: #### 1 69, 09758 #### [facility] [address] [place] [address], [place] Bilirubin [Mass/Vol] 1.0 mg/dL Normal 0.3-1.[address] [facility] Comment on above: Order Comment: No: D o not add to previous draw Performed By: #### 1 69, 81456 #### [facility] [address] [place] [address], [place] Calcium [Mass/Vol] 8.8 mg/dL Normal 8.6-10.[address] [facility] Comment on above: Order Comment: No: D o not add to previous draw Performed By: #### 1 69, 98656 #### [facility] [address] [place] [address], [place] Chloride [Moles/Vol] 104 mmol/L Normal 98-[address] [facility] Comment on above: Order Comment: No: D o not add to previous draw Performed By: #### 1 0, 60128 #### [facility] [address] [place] [address], [place] CO2 [Moles/Vol] 26 mmol/L Normal 21-[address] [facility] Comment on above: Order Comment: No: D o not add to previous draw Performed By: #### 1 0, 69672 #### [facility] [address] [place] [address], [place] Creatinine [Mass/Vol] 0.94 mg/dL Normal 0.70-1.[address] [facility] Comment on above: Order Comment: No: D o not add to previous draw Performed By: #### 1 0, [id number] #### [facility] [address] [place] [address], [place] GFR/1.73 sq M.predicted among blacks MDRD (S/P/Bld) [Vol rate/Area] mL/min/{1.73_m2} Normal >[address] [facility] Comment on above: Order Comment: No: D o not add to previous draw Result Comment: Calc ulation may not be valid for patients over 70 years Performed By: #### 1 0, 95836 #### [facility] [address] [place] [address], [place] GFR/1.73 sq M.predicted among non-blacks MDRD (S/P/Bld) [Vol rate/Area] mL/min/{1.73_m2} Normal >[address] [facility] Comment on above: Order Comment: No: D o not add to previous draw Result Comment: Calc ulation may not be valid for patients over 70 years Performed By: #### 1 0, 48430 #### [facility] [address] [place] [address], [place] Glucose [Mass/Vol] 107 mg/dL High 70-[address] [facility] Comment on above: Order Comment: No: D o not add to previous draw Performed By: #### 1 0, 73479 #### [facility] [address] [place] [address], [place] Potassium [Moles/Vol] 4.0 mmol/L Normal 3.5-5.[address] [facility] Comment on above: Order Comment: No: D o not add to previous draw Performed By: #### 1 0, 25905 #### [facility] [address] [place] [address], [place] Protein [Mass/Vol] 6.3 g/dL Normal 6.0-8.[address] [facility] Comment on above: Order Comment: No: D o not add to previous draw Performed By: #### 1 0, 83831 #### [facility] [address] [place] [address], [place] Sodium [Moles/Vol] 135 mmol/L Low 136-[address] [facility] Comment on above: Order Comment: No: D o not add to previous draw Performed By: #### 1 0, 54234 #### [facility] [address] [place] [address], [place] Urea nitrogen [Mass/Vol] 18 mg/dL Normal 7-[address] [facility] Comment on above: Order Comment: No: D o not add to previous draw Performed By: #### 1 0, 46899 #### [facility] [address] [place] [address], [place] MAGNESIUM BLOODon 01-01-2021 Magnesium [Mass/Vol] 1.6 mg/dL Low 1.9-2.[address] [facility] Comment on above: Order Comment: No: D o not add to previous draw Performed By: #### 1 0, 55287 #### [facility] [address] [place] [address], [place] Cardiovascular Lab Reporton 12-31-2020 Cardiovascular Lab Report [facility] Patient Name: Juan Barcenas MR #: [id number] [place] [address] Physician: Sissy Garcia M.D. Department of Service Date: 12/31/2020 Medicine Birthdate: 1935 Division of Room #: 3AB [id number] Cardiology Adult Cardiovascular Services [facility] [address] [place] [address] Cardiovascular Laboratory Report INDICATION: The patient is [...] femoral vein under ultrasound guidance. INTERVENTIONAL CARDIOLOGY TEST MAN: Sissy Garcia M.D. CARDIOTHORACIC SURGERY TEST MAN: Douglas De La Rosa MD. CLASSIFIED AD TAKER: Rashad Rajput MD. METHODS: The procedure was explained to the patient with risks and benefits. He signed informed consent. He was brought to greens laborer in a fasting state. Both groin areas were prepped and draped in usual fashion. The procedure was performed in the greens laborer under conscious sedation. Using ultrasound guidance, access was obtained in the right and left common femoral arteries and after inner cannula angiography confirmed adequate placement, access was upsized to a 6-Tuvaluan x 11 cm sheath on both sited. Access was obtained using same technique in the left common femoral vein and a 6-Tuvaluan x 11 cm sheath was placed. Preclosure in the right common femoral artery was performed using 2 crossing 6-Tuvaluan ProGlide devices and the access was upsized to a 10-Tuvaluan x 11 cm sheath. A 6-Tuvaluan angled pigtail catheter was advanced through the [...] upsized using a Lunderquist wire to the 16-Tuvaluan Murillo eSheath, which was secured in place. A 6-Tuvaluan AL1 diagnostic catheter was advanced and using a Glidewire, the aortic valve was crossed and the catheter was then exchanged over wire to a 6-Tuvaluan angled pigtail catheter, which was used to place an exchange length Amplatz extra stiff wire in the left ventricle. The Murillo Genevieve Ultra 29 mm valve was prepped at nominal volume -2 mL and was advanced across the iliamna aortic valve and under rapid pacing at [...] Garcia M.D. Date Trans: 12/31/2020 04:01 P/monster [id number] cc: Tony Burgos M.D. [address] [place] [address], [address] [facility] [phone] Radha Chandler, MSN, BAGGAGE AGENT SUPERVISOR [employer], D (more content not included)... Normal The [facility] Operative Reporton Operative Report MR#: [id number] [facility] Pt. Name: Juan Barcenas Room #: 3AB [id number] Discharge Date: Birthdate: 1935 OPERATIVE REPORT DATE OF SURGERY: 12/31/2020 SURGEON: Douglas De La Rosa MD PREOPERATIVE DIAGNOSES: Severe aortic stenosis. Previous coronary artery bypass grafting. POSTOPERATIVE DIAGNOSES: Severe aortic stenosis. Previous coronary artery bypass grafting. OPERATION: Percutaneous transfemoral transcatheter aortic valve replacement with 29 mm Genevieve Ultra valve. CO-SURGEON: Sissy Garcia M.D. IT SYSTEMS MANAGER: Dr. Rajput. ANESTHESIA: MAC. INDICATIONS: This is [...] artery and the sheath was upgraded to 8-Tuvaluan sheath. Through the left groin sheath, a pigtail catheter was inserted in the ascending aorta. A temporaryp pacemaker was inserted through the left femoral vein and tested for later use. At this time, the patient was heparinized and right femoral arterial sheath was upgraded over Lunderquist wire to a 16-Tuvaluan sheath. An AL4 catheter inserted in the [...] Rosa MD Date Trans: 12/31/2020 05:02 P/monster [id number] cc: Tony Burgos M.D. [address] [place] [phone] Radha Chandler, MSN, BAGGAGE AGENT SUPERVISOR [facility], Dept. Of Surgery [facility] [address] [facility] [address] [address] [facility] TYPE AND SCREENon 12-31-2020 ABO INTERPRETATION O Normal The [facility] Comment on above: Performed By: #### 3 0323 #### [facility] [address] [place] [address], [facility] RH INTERPRETATION Positive Normal The [facility] Comment on above: Performed By: #### 3 0323 #### [facility] [address] [place] [address], [place] BASIC METABOLIC PANELon 05- Calcium [Mass/Vol] 9.2 mg/dL Normal 8.6-10.[address] [facility] Comment on above: Performed By: #### 3 0323 #### [facility] [address] [place] [address], [facility] Chloride [Moles/Vol] 106 mmol/L Normal 98-[address] [facility] Comment on above: Performed By: #### 3 0323 #### [facility] [address] [place] [address], [place] CO2 [Moles/Vol] 26 mmol/L Normal 21-[address] [facility] Comment on above: Performed By: #### 3 0323 #### [facility] [address] [place] [address], [place] Creatinine [Mass/Vol] 1.02 mg/dL Normal 0.70-1.[address] [facility] Comment on above: Performed By: #### 3 0323 #### [facility] [address] [place] [address], [place] GFR/1.73 sq M.predicted among blacks MDRD (S/P/Bld) [Vol rate/Area] mL/min/{1.73_m2} Normal >[address] [facility] Comment on above: Result Comment: Calc ulation may not be valid for patients over 70 years Performed By: #### 3 0323 #### [facility] [address] [place] [address], [place] GFR/1.73 sq M.predicted among non-blacks MDRD (S/P/Bld) [Vol rate/Area] mL/min/{1.73_m2} Normal >[address] [facility] Comment on above: Result Comment: Calc ulation may not be valid for patients over 70 years Performed By: #### 3 0323 #### [facility] [address] [place] [address], [place] Glucose [Mass/Vol] 83 mg/dL Normal 70-[address] [facility] Comment on above: Performed By: #### 3 0323 #### [facility] [address] [place] [address], [place] Potassium [Moles/Vol] 4.5 mmol/L Normal 3.5-5.[address] [facility] Comment on above: Performed By: #### 3 0323 #### [facility] [address] [place] [address], [facility] Sodium [Moles/Vol] 139 mmol/L Normal 136-[address] [facility] Comment on above: Performed By: #### 3 0323 #### [facility] [address] [place] [address], [facility] Urea nitrogen [Mass/Vol] 22 mg/dL Normal 7-[address] [facility] Comment on above: Performed By: #### 3 0323 #### [facility] [address] [facility] [place] [address], [facility] BNP (B-TYPE NATRIURETIC PEPT MANUEL)on 11-19-2020 Natriuretic peptide B (Bld) [Mass/Vol] 168 pg/mL High 0-[address] [facility] Comment on above: Result Comment: Give n the appropriate clinical setting a BNP result of >100 pg/mL indicates congestive heart failure. Performed By: #### 8 5123 #### [facility] [address] [facility] [place] [address], [facility] CBC COMPLETE BLOOD COUNTon 0 11-19-2020 Erythrocyte distribution width (RBC) [Ratio] 14.5 % Normal 11.5-15.[address] [facility] Comment on above: Performed By: #### 5 0608 #### [facility] [address] [facility] [place] [address], [facility] Hematocrit (Bld) [Volume fraction] 38.6 % Low 39.0-50.[address] [facility] Comment on above: Performed By: #### 5 0608 #### [facility] [address] [place] [address], [facility] Hemoglobin (Bld) [Mass/Vol] 12.2 g/dL Low 13.0-17.[address] [facility] Comment on above: Performed By: #### 5 0608 #### [facility] [address] [place] [address], [facility] MCH (RBC) [Entitic mass] 29.0 pg Normal 27.0-33.[address] [facility] Comment on above: Performed By: #### 5 0608 #### [facility] [address] MCHC (RBC) [Mass/Vol] 31.6 g/dL Low 32.0-35.[address] [facility] Comment on above: Performed By: #### 5 0608 #### [facility] [address] MCV (RBC) [Entitic vol] 91.7 fL Normal 82.0-98.[address] [facility] Comment on above: Performed By: #### 5 0608 #### [facility] [address] Nucleated RBC/100 WBC (Bld) [Ratio] 0 % Normal 0-[address] [facility] Comment on above: Performed By: #### 5 0608 #### [facility] [address] PLAT CNT 265 10*3/uL Normal 150-[address] [facility] Comment on above: Performed By: #### 5 0608 #### [facility] [address] RBC (Bld) [#/Vol] 4.21 10*6/uL Normal 4.20-5.[address] [facility] Comment on above: Performed By: #### 5 0608 #### [facility] [address] [place] [address], [facility] WBC (Bld) [#/Vol] 6.97 10*3/uL Normal 4.00-10.[address] [facility] Comment on above: Performed By: #### 5 0608 #### [facility] [address] CHEST AND LATERALon 11-20-19 CHEST AND LATERAL [facility] Department of Radiology [address] [place] [phone] Patient Name: JUAN BARCENAS : 1935 [...] abnormalities Electronically signed: Mandeep Medina. Transcribed by: [email or web address], User Resident: Electronically Signed by: MANDEEP MEDINA @ 11/19/2020 02:46 PM Normal [facility] Comment on above: Order Comment: , PA and lateral PROCALCITONINon 11-19-2020 PROCALCITONIN 0.05 ng/mL Normal 0.00-0.[address] [facility] Comment on above: Result Comment: [...] PCT<0.5ng/mL Performed By: #### 3 1488 #### [facility] [address] *AFB CULTUREon 11-05-2020 *AFB CULTURE Clinical Report: (D) Specimen/Source: TISSUE/LUNG BIOPSY Collected: 11/05/2020 15:40 Status: Final Last Updated: 12/18/2020 14:00 (1) RUL AFB (Final) No Acid Fast Bacilli Seen CULT RES (Final) No growth after 42 days of incubation Normal The [facility] Comment on above: Order Comment: RUL Performed By: #### 3 0832 #### [address] *FUNGAL CULTUREon 11-05-2020 *FUNGAL CULTURE Clinical Report: (D) Specimen/Source: TISSUE/LUNG BIOPSY Collected: 11/05/2020 15:40 Status: Final Last Updated: 12/10/2020 08:21 (1) RUL FS (Final) No Yeast or Fungal Elements Seen CULT RES (Final) Culture negative for fungus Normal The [facility] Comment on above: Order Comment: RUL Performed By: #### 3 0323 #### [address] *TISSUE CULTUREon 11-05-2020 *TISSUE CULTURE Clinical Report: (D) Specimen/Source: TISSUE/LUNG BIOPSY Collected: 11/05/2020 15:40 Status: Final Last Updated: 11/10/2020 10:46 (1) RUL GRAM (Final) No Polys Seen Rare Gram Positive Cocci In Chains CULT RES (Final) No Growth Day [address] [facility] Comment on above: Order Comment: RUL Performed By: #### 5 0608 #### [address] FLUORO FOR BRONCHOSCOPYon FLUORO FOR BRONCHOSCOPY [facility] Department of Radiology [address] [place] [phone] Patient Name: JUAN BARCENAS : 1935 [...] provided. Electronically signed: Milvia Rosales. Transcribed by: [email or web address], User Resident: Electronically Signed by: MILVIA ROSALES @ 11/06/2020 11:17 AM Normal [facility] Comment on above: Order Comment: RUL Operative Reporton Operative Report MR#: [id number] [facility] Pt. Name: Juan Barcenas Room #: 0C Discharge Date: Birthdate: 1935 OPERATIVE REPORT DATE OF SURGERY: 11/05/2020 SURGEON: Nicole Guerrero MD EBUS-TBNA, fluoroscopic guided transbronchial biopsies and BAL procedure note Patient: Juan Barcenas Date: 11/05/2020 Indication: Diagnostic/therapeutic bronchoscopy Procedure Bsa Officer: Shelbi Garrido MD Supervising Attending: Nicole Guerrero [...] Garrido MD Date Trans: 11/05/2020 04:12 P/ [id number] cc: Tony Burgos M.D. [address] [place] [address] A [facility] [phone] Normal [address] [facility] POC GLUCOSE LABon 11-05-2020 Glucose [Mass/Vol] 90 mg/dL Normal 70-[address] [facility] Comment on above: Performed By: #### 3 0323 #### [facility] [address] [place], [place] [address] POC SARS COV2 ANTIGEN NEGATI VEon 11-05-2020 POC SARS COV2 ANTIGEN NEG Negative Normal NEGATIVE [facility] Comment on above: Result Comment: [...] Accreditation. Performed By: #### 3 1944 #### [facility] [address] [place] [address], [facility] PORTABLE CHEST 1 VIEWon 10-11 PORTABLE CHEST [address] [facility] Department of Radiology [address] [place] [address] Patient Name: JUAN BARCENAS : [...] pneumothorax. Electronically signed: Gilberto Payton. Transcribed by: [email or web address], User Resident: Electronically Signed by: GILBERTO PAYTON @ 11/05/2020 05:34 PM Normal [facility] Comment on above: Order Comment: evalu ate for Pneumothorax *AFB CULTUREon 10-29-2020 *AFB CULTURE Clinical Report: (D) Specimen/Source: RESPIRATORY/BRONCHEAL ALVEOLAR LAVAGE Collected: 10/29/2020 15:35 Status: Final Last Updated: 12/18/2020 14:00 (1) RUL BAL AFB (Final) No Acid Fast Bacilli Seen CULT RES (Final) No growth after 42 days of incubation Normal [facility] Comment on above: Order Comment: RUL B AL Performed By: #### 5 0608 #### [address] *FUNGAL CULTUREon 10-29-2020 *FUNGAL CULTURE Clinical Report: (D) Specimen/Source: RESPIRATORY/BRONCHEAL ALVEOLAR LAVAGE Collected: 10/29/2020 15:35 Status: Final Last Updated: 11/12/2020 14:16 (1) RUL BAL FS (Final) No Yeast or Fungal Elements Seen ISO (Final) Radha albicans Presumptive Normal [facility] Comment on above: Order Comment: RUL B AL Performed By: #### 5 0608 #### [address] *RESPIRATORY CULTUREon 10-29 *RESPIRATORY CULTURE Clinical Report: (D ) Specimen/Source: RESPIRATORY/BRONCHEAL ALVEOLAR LAVAGE Collected: 10/29/2020 15:35 Status: Final Last Updated: 11/09/2020 06:44 (1) RUL BAL GRAM (Final) Few Polys Rare Ciliated Columnar Epithelial Cells No Bacteria Seen CYTOSPUN (Final) This Gram Stain was done on a cytocentrifuged specimen ISO (Final) Colonies Consistent with Upper Respiratory Nerissa >10,000 Cfu/mL Normal [facility] Comment on above: Order Comment: RUL Performed By: #### 3 0323 #### [address] CTA ABDOMEN AND PELVISon CTA ABDOMEN AND PELVIS [facility] Department of Radiology [address] [place] [phone] Patient Name: JUAN BARCENAS : 1935 Sex: M Age: Race: White Pt. Location: 30 Patient Status: D Ordered Date: 10/15/2020 10:55:00 AM Completed Date: 10/22/2020 02:56 PM Requesting Provider: SISSY GARCIA V Attending Provider: SISSY GARCIA V Report Copy To: TONY BURGOS Signs & Symptoms: I35.0 Nonrheumatic aortic (valve) stenosis I10 History: [place] medicare no pc required [address] cta abdomen pelvis / I35.0 med nec [...] achievable Electronically signed: Dav Lopez. Transcribed by: [email or web address], User Resident: Electronically Signed by: DAV LOPEZ @ 10/24/2020 09:06 AM Normal [facility] Comment on above: Order Comment: (TAVR ) Protocol CTA CHESTon 10-22-[address] CT[address] [facility] Department of Radiology [address] [place] [phone] Patient Name: JUAN BARCENAS : 1935 Sex: M Age: Race: White Pt. Location: 30 Patient Status: D Ordered Date: 10/15/2020 10:55:00 AM Completed Date: 10/22/2020 02:56 PM Requesting Provider: SISSY GARCIA V Attending Provider: SISSY GARCIA V Report Copy To: TONY BURGOS Signs & Symptoms: I35.0 Nonrheumatic aortic (valve) stenosis I10 History: [place] medicare [place] pc required cta chest 95861/I35.0 med nec passed *kw Comments: EKG gated-TAVR [...] 3 cusped view, anterior view and no ORGANIC CHEMIST-CAU view are obtained in 3-D. The annulus [...] place. Electronically signed: Dav Lopez. Transcribed by: [email or web address], User Resident: Electronically Signed by: DAV LOPEZ @ 10/24/ (more content not included)... Normal [facility] Comment on above: Order Comment: EKG g ated-TAVR protocol Cardiovascular Lab Reporton 10-18-2020 Cardiovascular Lab Report [facility] Patient Name: Juan Barcenas MR #: [id number] [facility] Physician: Sissy Garcia M.D. Department of Service Date: 10/17/2020 Medicine Birthdate: 1935 Division of Room #: Cardiology Adult Cardiovascular Services [place] [address] Cardiovascular Laboratory Report INDICATION: The patient is an 85-year-old man with history of severe aortic valve stenosis. He has prior history of bypass surgery in the past. He recently was admitted to the [facility] with decompensated heart failure and pneumonia. He was evaluated in Cardiology Clinic and was referred for cardiac catheterization in preparation for transcatheter aortic valve replacement. PROCEDURES: 1. Right heart catheterization. 2. Bilateral selective coronary angiography. 3. Graft angiography. 4. Limited right common femoral angiography. METHODS: Procedure was explained to the patient with risks and benefits. He signed consent. He was brought to greens laborer in a fasting state. The right groin area was prepped and draped in usual fashion. Using micropuncture technique, the right common femoral artery was accessed. The inner cannula was advanced. Limited right common femoral angiography was performed followed by upsizing to a 5-Tuvaluan x 11 cm sheath. Access was also obtained in the same technique using the micropuncture technique in the right common femoral vein and a 6-Tuvaluan x 11 cm sheath was placed. A 6-Tuvaluan Hart catheter was used for right catheterization with measurement of pressures and calculation of cardiac output using the estimated Zion method. Bilateral selective coronary angiography was then performed using 5-Tuvaluan JL4 and JR4 diagnostic catheters. The 5-Tuvaluan JR4 diagnostic catheter was used to selectively [...] opacification. The catheter was then removed. A 5-Tuvaluan MIESHA diagnostic catheter was used to selectively [...] grafts. 3. Moderately elevated filling pressures. 4. Fiuq-ok-glpdeala pulmonary hypertension. 5. Mildly reduced cardiac output and cardiac index. RECOMMENDATIONS: 1. Continue current medical therapy. 2. The patient will continue to be evaluated for transcatheter aortic valve replacement. Electronically Signed by: Sissy Garcia M.D. 10/20/2020 05:02 P Sissy Garcia M.D. Date Dict: 10/17/2020/03:26 P/Sissy Garcia M.D. Date Trans: 10/18/2020 04:41 A/monster [id number] cc: Tony Burgos M.D. [address] [place] [address] A [facility] [phone] [facility] Vital Signs Date Time Vital Sign Value Performing Clinician Faci lity 11-04-2021 14:41-0400 Blood Pressure Location Shelbi NILL [facility] [place] 11-04-2021 14:41-0400 Diastolic blood pressure 76 mm[Hg] Shelbi NILL [facility] [place] 11-04-2021 14:41-0400 Heart rate 68 /min Shelbi NILL [facility] [place] 11-04-2021 14:41-0400 Respiratory rate 16 /min Shelbi NILL [facility] [place] 11-04-2021 14:41-0400 Systolic blood pressure 144 mm[Hg] Shelbi NILL [facility] [place] Encounters Encounter Date Encounter Type Care Provider Facility Start: 09-11-2025 ambulatory Isabela L Gracie Facility: [facility] [place] Start: 09-25-2024 End: 09-25-2024 ambulatory SISSY WHITEMATTHEW [facility] Start: 09-13-2024 End: 09-13-2024 ambulatory Isabela L Gracie Facility:[facility] [place] Start: 09-11-2024 End: 09-11-2024 ambulatory Nesha Valencia Facility:[facility] [place] Start: 09-06-2024 End: [facility]: 05-30-[facility]24 End: 05-30-2024 ambulatory [facility] Start: 05-23-2024 End: 05-23-2024 ambulatory [facility] Start: 04-17-2024 End: 04-17-2024 ambulatory Isabela Bowman Facility:[facility] Start: 10-26-2023 End: 10-26-2023 ambulatory [facility] Start: 10-19-2023 End: 10-19-2023 ambulatory [facility] Start: 09-29-2023 End: 09-29-2023 ambulatory Isabela Bowman Facility:[facility] Start: 12-04-2022 End: 12-05-[address] TONY BURGOS . Facility:[facility] Start: 10-01-2022 End: 10-02-[address] TONY BURGOS . Facility:[facility] Start: 09-24-2022 End: 09-25-[address] TONY BURGOS . Facility:[facility] Start: 08-17-2022 Encounter for other preprocedural examination [facility] Start: 08-12-2022 End: 08-13-[address] TONY [...] Patient encounter procedure Shelbi ABRAHAM General Surgery Nevillel/Rodney Glover Start: 12-31-2020 End: 01-01-2021 Evaluation and management of inpatient RADHA CHANDLER Facility:[facility] Start: 11-05-2020 End: 11-06-2020 ambulatory HI Facility:[facility] Start: 10-17-2020 End: 10-18-2020 ambulatory TONY BURGSO Facility:[facility] Procedures Date Procedure Procedure Detail Performing [...] [place] Start: 12-31-2020 Antibody screen TONY ALONZO T Comment on above: Performed By: #### [id number] #### [facility] [address] [place] [address], [facility] Start: 12-31-2020 FLUOROSCOPY OF THORA CIC AORTA USING LOW OSMOLAR CONTRAST DOUGLAS DE LA [place] Start: 12-31-2020 REPLACEMENT OF AORTI C VALVE WITH ZOOPLASTIC, PERC APPROACH DOUGLASROYER DE LA [place]A Start: 12-10-2020 Replacement of [...] ABRAHAM Payers Date Payer Category Payer Medicare [id number] 1957 Self-pay [id number] 1957 Unknown [id number] 1935 Unknown [id number] 2.16.8 40.1.191180.3.579.2.647 1935 Unknown [id number] 2.16.8 40.1.513737.3.579.2.647 1937 Unknown [id number] 2.16.8 40.1.930629.3.579.2.647 1937 Unknown [id number] 2.16.84 0.1.528422.3.579.2.593 1937 Unknown [id number] 2.16.84 0.1.227771.3.579.2.593 1937 Unknown [id number] 2.16.84 0.1.181502.3.579.2.593 1937 Unknown [id number] 2.16.84 0.1.838200.3.579.2.593 1937 Unknown [id number] 2.16.84 0.1.695425.3.579.2.593 1937 Unknown [id number] 2.16.84 0.1.528578.3.579.2.593 1937 Unknown [id number] 2.16.84 0.1.181122.3.579.2.593 1937 Unknown [id number] 2.16.84 0.1.559746.3.579.2.593 1937 Unknown [id number] 2.16.84 0.1.866479.3.579.2.593 1937 Unknown [id number] 2.16.84 0.1.268602.3.579.2.593 1937 Unknown [id number] 2.16.84 0.1.505589.3.579.2.593 1937 Unknown [id number] 2.16.84 0.1.053715.3.579.2.593 1937 Unknown [id number] 2.16.84 0.1.574413.3.579.2.593 1937 Unknown [id number] 2.16.84 0.1.462280.3.579.2.593 1937 Unknown [id number] 2.16.84 0.1.972450.3.579.2.593 1937 Unknown [id number] 2.16.84 0.1.037742.3.579.2.593 1937 Unknown [id number] 2.16.84 0.1.575711.3.579.2.593 1937 Unknown [id number] 2.16.84 0.1.525054.3.579.2.593 1937 Unknown [id number] 2.16.84 0.1.107230.3.579.2.593 1937 Unknown [id number] 2.16.84 0.1.041420.3.579.2.593 1937 Unknown [id number] 2.16.84 0.1.519735.3.579.2.593 1937 Unknown [id number] 2.16.84 0.1.603614.3.579.2.593 1937 Unknown [id number] 2.16.84 0.1.370563.3.579.2.593 1937 Unknown [id number] 2.16.84 0.1.829252.3.579.2.593 1937 Unknown [id number] 2.16.84 0.1.867030.3.579.2.593 1937 Unknown [id number] 2.16.84 0.1.255442.3.579.2.593 1937 Unknown [id number] 2.16.84 0.1.986524.3.579.2.593 1937 Unknown [id number] 2.16.84 0.1.281805.3.579.2.593 1937 Unknown [id number] 2.16.84 0.1.858423.3.579.2.593 1937 Unknown [id number] 2.16.84 0.1.657363.3.579.2.593 1937 Unknown [id number] 2.16.84 0.1.725764.3.579.2.593 1937 Unknown [id number] 2.16.84 0.1.955509.3.579.2.593 1937 Unknown [id number] 2.16.84 0.1.650387.3.579.2.593 1937 Unknown [id number] 2.16.8 40.1.292773.3.579.2.727 1937 Unknown [id number] 2.16.8 40.1.387922.3.579.2.727 1937 Unknown [id number] 2.16.8 40.1.721053.3.579.2.727 1937 Unknown [id number] 2.16.8 40.1.158774.3.579.2.727 1937 Unknown [id number] 2.16.8 40.1.135962.3.579.2.727 Social History Date Type Detail Facility Start: 11-04-2021 Tobacco smoking status Ex-smoker (fi nding) [facility] Tobacco smoking status Never Gener [facility] Sex Assigned At Male Eulalia [facility] Clinical Notes 01-02-2021 to 09-25-2024 Note Date & Type Note Facility 09-25-2024 Note This report has been cancelled. [facility] 09-25-2024 Note MD Cardiology - [facility] Subjective Juan Barcenas is a 89 y.o. year old male patient being seen for 1 mo follow up HF, PAF, aortic valve disorder s/p TAVR, and hypertension. 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 His ejection fraction improved to 50-55% on echocardiogram in November 2023. He has a history of GI bleed due to AVM. At visit of 05/30/2024 at our office with SYSTEMS TECHNICIAN Olivia Barajas, atorvastatin was increased to 40 mg daily for better control of his lipids but he did not make the increase. Due to worsening renal function he was recommended holding Lasix for few days after that visit. I saw him in follow-up on 09/06/2024. I checked an echocardiogram and a carotid ultrasound as well as blood testing. The visit today is in the presence of his daughter. She reports that he has been having shortness of breath on exertion that has been worsening. He does have lower extremity edema bilaterally. He denies chest pain and palpitations. Review of Systems Cardiovascular: Positive for dyspnea on exertion and leg swelling. Negative for chest pain. All other systems reviewed and are negative. Objective Visit Vitals BP 164/76 (BP Location: Left arm, Patient Position: Sitting) Pulse 63 Ht 1.702 m (5' 7 ) Wt 78.9 kg (174 lb) SpO2 96% BMI 27.25 kg/m??? Smoking Status Former BSA 1.93 m??? Physical Exam Constitutional: Appearance: He is [...] 10 mg tablet, Take 1 tablet (10 mg) by mouth in the morning., Disp: 30 tablet, Rfl: 3 aspirin 81 mg EC tablet, Take 81 mg by mouth in the morning., Disp: , Rfl: atorvastatin (Lipitor) 40 mg tablet, Take 1 tablet (40 mg) by mouth at bedtime., Disp: 90 tablet, Rfl: 3 carvedilol (Coreg) 6.25 mg tablet, TAKE 3 TABLETS (18.75 MG) BY MOUTH WITH BREAKFAST AND WITH EVENING MEAL., Disp: 540 tablet, Rfl: 3 ferrous sulfate 325 (65 Fe) MG tablet, Take 65 mg by mouth with b (more content not included)... [facility] 09-11-2024 Note Patient Education Cardiovascular Hypertension, Adult [...] Keep all follow-up visits. Medicines ??? Take [id number] and prescription medicines only as told by [...] Hypertension is a (more content not included)... 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 His ejection fraction improved to 50-55% on [...] 1 tablet (10 (more content not included)... [facility] 05-30-2024 Note Patient here for 6 m [...] All other systems reviewed and are negative. [facility] 05-30-2024 Note Cardiovascular Medic [facility] SUBJECTIVE Chief Complaint Patient presents with Coronary Artery Disease Congestive Heart Failure Valve Disorder Juan Barcenas is a 88 y.o. male here for follow-up. His daughter accompanied him today. HPI PMHx: HFrEF, pacemaker induced cardiomyopathy s/p IRISH MOSS OPERATOR-P, aortic stenosis s/p TAVR on 12/31/2020 with [...] here for follow s/p BiV upgrade for IRISH MOSS OPERATOR-P. His blood pressure readings are elevated and he is currently on Coreg 18.75mg bid, Cozaar 100 once daily, Norvasc 10 mg once daily. on this his blood pressure readings somewhat markedly elevated in the 160-180 range at 8 AM to 9 AM readings in the afternoon readings are usually in the 130-150 range. he feels good after the IRISH MOSS OPERATOR upgrade. He had reduced EF in 02/11/2022 [...] other occasions he was noted to have iliamna conduction. 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 Dizziness and giddiness Dyspnea Essential hypertension Hyperlipidemia Joint pain Local infection of skin and subcutaneous tissue Pulmonary emphysema (CMS/HCC) Paroxysmal atrial fibrillation (CMS/HCC) Syncope and collapse Atrial flutter (CMS/HCC) Acute diastolic heart failure (CMS/HCC) Adenomatous polyp of colon Anemia Iron deficiency anemia retirement current use of anticoagulant therapy Overweight with body mass index (BMI) 25.0-29.9 Polymyalgia rheumatica (CMS/HCC) Stage 3 chronic kidney disease (CMS/HCC) CHF (congestive heart failure) (CMS/HCC) GI (gastrointestinal bleed) NSVT (nonsustained ventricular tachycardia) ([facility]/HCC) Stenosis of left carotid artery Pure hypercholesterolemia Past Medical History: Diagnosis Date Abnormal ECG Arrhythmia Arthritis Atrial fibrillation (CMS/HCC) CHF (congestive heart failure) ([facility]/HCC) Coronary artery disease GI (gastrointestinal bleed) Heart [...] 138/72 (BP Locat (more content not included)... [facility] 10-19-2023 Note Cardiovascular Medic ine [facility] SUBJECTIVE No chief complaint on file. Juan Barcenas is a 88 y.o. male here for follow-up. His daughter accompanied him today. HPI PMHx: HFrEF, pacemaker induced cardiomyopathy s/p IRISH MOSS OPERATOR-P, aortic stenosis s/p TAVR on 12/31/2020 with [...] here for follow s/p BiV upgrade for IRISH MOSS OPERATOR-P. His blood pressure readings are elevated and he is currently on Coreg 18.75mg bid, Cozaar 100 once daily, Norvasc 10 mg once daily. on this his blood pressure readings somewhat markedly elevated in the 160-180 range at 8 AM to 9 AM readings in the afternoon readings are usually in the 130-150 range. he feels good after the IRISH MOSS OPERATOR upgrade. He had reduced EF in 02/11/2022 [...] other occasions he was noted to have iliamna conduction. 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 [facility] 10-19-2023 Note Patient here for 6 m [...] All other systems reviewed and are negative. [facility] 04-25-2022 Note [facility] 01-02-2021 Note MR#: [id number] [facility] Pt. Name: Juan Barcenas Admitted: [...] symptomatic aortic stenosis. He presented to [facility] on 12/31/2020 for planned transcatheter aortic [...] by: Sissy Garcia M.D. 01/05/2021 09:56 A __ Sissy Garcia M.D. I personally saw this patient on the day of the encounter, performed the farris portion(s) of the service and participated in the management and confirm the resident's documentation. Please note there may be an additional personal documentation from me. Date Dict: 01/01/2021/07:04 P/Nicole Dallas MD Date Trans: 01/02/2021 08:39 A/monster [id number] cc: Tony Burgos M.D. [address] [place] [address] A [facility] [id number] Sissy Garcia M.D. Heart Failure/ Transplant [facility] [address] [facility] [address] Radha Chandler, MSN, B[employer] AGENT [employer]PER[employer]OR [facility], Dept. Of Surgery [facility] [address] [facility] [address] [facility] Evaluation + Plan note No data available for this section General Surgery [facility] Discharge instructions No data available for this section General Surgery [place] Summary Purpose Family History No Family History [...] and content) DATE CREATED AUTHOR 09/20/2021 [facility] DATE CREATED AUTHOR AUTHOR'S ORGANIZ ATION 12/17/2021 [facility] DATE CREATED AUTHOR AUTHOR'S ORGANIZ ATION 12/18/2022 [facility] DATE CREATED AUTHOR AUTHOR'S ORGANIZ ATION 09/14/2024 [facility] DATE CREATED AUTHOR AUTHOR'S ORGANIZ ATION 09/26/2024 [facility] FOR RECORDS PERTAINING TO PATIENTS WHO [...] BE BASED ON THE PRIMARY CLINICAL RECORDS. [facility] provides no warranty or guarantee of the accuracy or completeness of information in this document.
[2024-10-26 11:08] LABS: Calcium 8.6 mg/dL (8.5-10.1); Chloride 110 mmol/L (98-107); Cholesterol 105 mg/dL (<=200); Estimated GFR (African America 42 (>=60 mL/min/1.73m^2); Estimated GFR (Non-African Ame 34 (>=60 mL/min/1.73m^2); Glucose 103 mg/dL (74-106); HDL Cholesterol 52 mg/dL (40-60); LDL Cholesterol Calculated 46.2 mg/dL; Sodium 145 mmol/L (136-145); Triglycerides 34 mg/dL (<=150); VLDL CHOLESTEROL 6.8 mg/dL
== END 2024-10-26 09:57 | disposition home or self-care (01) ==
LOC: LAB 10:01
PROVIDERS: PCP Family Medicine; Visit Provider Internal Medicine Interventional Cardiology
DX: I50.32 Chronic diastolic (congestive) heart failure (principal); E78.2 Mixed hyperlipidemia
CPT/HCPCS: 36415; 80048; 80061

== ENCOUNTER 2024-11-14 11:06 | Emergency (ER) | payer MEDICARE, SELFPAY ==
[2024-11-14 11:13] VITALS: BP 132/84; PULSE 65; TEMP 36.5; O2SAT 97; BMI 27.8
[2024-11-14 11:21] VITALS: O2SAT 98
[2024-11-14] MEDS: OXYCODONE HCL/ACETAMINOPHEN 5MG/325MG 1 TAB PO (11:57)
[2024-11-14] MEDS: KETOROLAC TROMETHAMINE 30 MG/ML VIAL 15 MG IM (11:58)
[2024-11-14 13:11] VITALS: BP 159/78; PULSE 54; O2SAT 97
[2024-11-14 13:16] VITALS: O2SAT 95
--- NOTE | 2024-11-14 14:55 | ED_ITS ---
HPI HPI - Fall General Chief Complaint: Fall Stated Complaint: FALL RIB PAIN Time Seen by Provider: 11/14/24 11:26 Source: family Mode of arrival: walk-in Limitations: no limitations History of Present Illness HPI Narrative: The patient is a 89-year-old male coming to the ER after he fell on his side yesterday, he had no loss of consciousness head injury or any other concerns but he had distressed pain on the right side mostly when he take a deep breath or moves The patient is pointing at the mid axillary line on the right side Related Data Previous Rx's ?Medication ?Instructions ?Recorded oxycodone-acetaminophen 5 mg-325 1 tab PO Q8H PRN pain 3 days #9 11/14/24 mg tablet (Percocet) tabs Allergies Allergy/AdvReac Type Severity Reaction Status Date / Time No Known Drug Allergies Allergy Verified 11/14/24 11:13 Opioid HPI Opioid Management Most Recent Pain and Opioid Data: Last Pain Scale 5 Today, 11:18 Review of Systems ROS Status of ROS 10 or more systems reviewed and unremark able except as noted in history and below PFSH PFSH Social History Little interest or pleasure in doing things: not at all Feeling down, depressed, or hopeless: not at all Exam Narrative Exam Narrative: Nurses notes and vital signs reviewed and patient is not hypoxic. General: Well-appearing and in no apparent distress. Skin: Warm, dry, no pallor noted. No rash. Head: Normocephalic, atraumatic. Neck: Supple, non-tender. Eye: Pupils are equal, round and EOMI. No scleral icterus. Ears, Nose, Mouth, and Throat: TM are clear, no nasal mucosal hypertrophy. Oral mucosa is moist, no posterior oropharynx erythema, uvula is mid-line Cardiovascular: Regular Rate and Rhythm without murmur, gallop or rub. Respiratory: No accessory muscle use or respiratory distress. Lungs are clear to auscultation, no wheezing, rales or rhonchi Chest Wall: There is tenderness upon palpation of the right sided chest wall at the midaxillary line there is no ecchymosis seen it is almost to the mid of the chest covering the the 6,7,8 ribs area Musculoskeletal: normal ROM, no calf or popliteal tenderness, no lower extremity edema/swelling GI: Abdomen is soft, non-distended. Normal bowel sounds. No masses appreciated. No tenderness to palpation. No rebound, guarding, or rigidity noted. Neurological: A&O x4. No cranial nerve dysfunction observed. No truncal ataxia. Moves all extremities. Sensation intact. Psychiatric: Cooperative and interactive. Normal mood and affect. Constitutional Vital Signs, click to edit/add: Last Vital Signs Temp 97.7 F 11/14/24 11:13 Pulse 54 L 11/14/24 13:11 Resp 16 11/14/24 13:11 BP 159/78 H 11/14/24 13:11 Pulse Ox 95 11/14/24 13:16 O2 Del Method Room Air 11/14/24 13:16 Course Vital Signs Vital signs: Vital Signs Temperature 97.7 F 11/14/24 11:13 Pulse Rate 65 11/14/24 11:13 Respiratory Rate 20 11/14/24 11:13 Blood Pressure 132/84 11/14/24 11:13 Pulse Oximetry 97 11/14/24 11:13 Oxygen Delivery Method Room Air 11/14/24 11:13 Temperature 97.7 F 11/14/24 11:13 Pulse Rate 54 L 11/14/24 13:11 Respiratory Rate 16 11/14/24 13:11 Blood Pressure 159/78 H 11/14/24 13:11 Pulse Oximetry 95 11/14/24 13:16 Oxygen Delivery Method Room Air 11/14/24 13:16 MDM - Fall MDM Narrative Medical decision making narrative: The patient was provided with Toradol and Percocet in the ER after which he was feeling much better He also was provided with incentive centimeter Awaiting results of the x-ray the patient was feeling much better he just wanted to leave and I did speak with the daughter at that time the x-ray was still pending and the result came as nondisplaced fracture of the right 8 9 and 10th rib on the right side with no other acute pathology detected Patient was discharged home with Percocet and the main plan was pain control I did explain to the daughter that in case of any worsening or any new symptoms the patient to come back to the ER The patient is to follow up with primary care physician in next 2-3 days or to return to the emergency department should any of the signs or symptoms worsen or new symptoms develop. The patient agrees with the following Diagnosis and Treatment plan and the patient will be discharged home. Discharge Plan Discharge Chief Complaint: Fall Clinical Impression: Chest wall contusion Patient Disposition: Home, Self-Care Time of Disposition Decision: 13:46 Condition: Good Mode of Transportation: Private Vehicle Prescriptions / Home Meds: New oxycodone-acetaminophen [Percocet] 5-325 mg tablet 1 tab PO Q8H PRN (Reason: pain) 3 Days Qty: 9 0RF Print Language: Guyanese Instructions: Chest Contusion (ED) Referrals: NESHA ESTRELLA [Primary Care Provider, Family Practice] - 1 week Discharge Date/Time: 11/14/24 13:54
== END 2024-11-14 13:54 | disposition home or self-care (01) ==
PROVIDERS: Emergency Provider Emergency Medicine; PCP Family Medicine
DX: S22.41XA Multiple fractures of ribs, right side, initial encounter for closed fracture (principal); S20.219A Contusion of unspecified front wall of thorax, initial encounter; W19.XXXA Unspecified fall, initial encounter
CPT/HCPCS: 71101; 94667; 96372; 99284; J1885

== ENCOUNTER 2024-12-12 14:46 | Outpatient (OUT) | payer MEDICARE, SELFPAY ==
--- NOTE | 2024-12-12 15:10 | XR_ITS ---
[address] [address] Patient Name: SHALA ARENAS MRN: [id number] date: 1935 Sex: M Assigned Patient Location: LAB Current Patient Location: LAB Accession/Order Number: [id number] Exam Date: 12/12/2024 15:37 Report Date: 12/12/2024 15:40 At the request of: SISSY SCHNEIDER Procedure: XR chest 2V Plain film chest 2 view HISTORY: Long-term medication usage COMPARISON: 04/17/2024 FINDINGS: SUPPORT DEVICES: None POSTSURGICAL CHANGES: Cardiac device remains intact. CABG changes. Cardiac valve prosthesis HEART: Within normal limits PULMONARY RO: Within normal limits MEDIASTINUM: Unremarkable LUNGS AND PLEURA: Chronic right apical scarring. Cardiac and basilar pleural-parenchymal changes. No new consolidation. No new pleural effusion. No pneumothorax. BONY STRUCTURES: Degenerative change. Remote rib fractures. ADDITIONAL FINDINGS None XR/XR chest 2V IMPRESSION: Similar chronic lung changes. No acute findings. Postop changes. Impression dictated by: Roberto Carlos Esteban M.D. 12/12/2024 3:40 PM Dictation Location: [employer] Electronically authenticated by: [id number] Date: 12/12/2024 15:40
[2024-12-12 16:04] LABS: Alanine Aminotransferase 30 U/L (16-63); Albumin Level 3.5 g/dL (3.4-5.0); Alkaline Phosphatase 186 U/L (46-116); Aspartate Amino Transferase 16 U/L (15-37); Bilirubin Direct 0.1 mg/dL (0.0-0.2); Bilirubin Total 0.6 mg/dL (0.2-1.0); Globulin 3.5 g/dL; Thyroid Stimulating Hormone 4.332 uIU/mL (0.358-3.740)
[2024-12-12 16:33] LABS: Free T4 1.32 ng/dL (0.76-1.46)
== END 2024-12-12 14:47 | disposition home or self-care (01) ==
LOC: LAB 14:52
PROVIDERS: PCP Family Medicine; Visit Provider Internal Medicine Interventional Cardiology
DX: Z79.899 Other long term (current) drug therapy (principal); Z95.1 Presence of aortocoronary bypass graft
CPT/HCPCS: 36415; 71046; 80076; 84439; 84443